=== PATIENT | male | born 1960 ===

== ENCOUNTER → 2021-06-08 10:51 | Outpatient (BNVA) | payer BC, SELFPAY | PROVIDERS: Visit Provider Urology | DX: C67.9 Malignant neoplasm of bladder, unspecified (principal); N40.1 Benign prostatic hyperplasia with lower urinary tract symptoms; N13.8 Other obstructive and reflux uropathy | CPT/HCPCS: 52000 ==

== ENCOUNTER 2022-06-25 11:48 | Outpatient (REF) | payer BC, SELFPAY ==
[2022-06-25 16:53] LABS: Urine Cytology See Pathology rpt
== END 2022-06-25 11:49 | disposition home or self-care (01) ==
LOC: HO.LAB 11:48
PROVIDERS: Visit Provider Urology
DX: C67.9 Malignant neoplasm of bladder, unspecified (principal); N40.1 Benign prostatic hyperplasia with lower urinary tract symptoms; N13.8 Other obstructive and reflux uropathy
CPT/HCPCS: 52000; 88112

== ENCOUNTER 2023-06-24 11:07 | Outpatient (AMB) | payer BC, SELFPAY ==
--- NOTE | 2023-06-24 11:10 | A.OFFVIS_ITS ---
Intake Intake Visit Reasons: 1 year follow up cysto Intake Note: Patient is present for Cystoscopy Urology Med: None Antibiotic Allergy:None Blood Thinner: None Pharmacy: [facility] Disposable Cystoscope used during Procedure LOT#: [id number] EXP: 03/07/2025 Allergies No Known Allergies Allergy (Verified 06/24/23 11:12) HPI HPI Comments History of Present Illness Details Asif Mccullough is a very pleasant male. They are a patient of Dr Agudelo. They are seen in the office today for the following urologic conditions. - Bladder cancer - lower urinary tract symptoms Cystoscopy no evidence of disease Does have some mild BPH recurrence Major issue in the past year has been COVID diagnosis with significant lung impairment Require supplemental oxygen in the evening Will do saturate when attempts any major activity during the day This has been some improvement Bladder Cancer:? Initial diagnosis 2013 with recurrent low-grade responsive to BCG (did drop platelets) ? Here for Bladder Cancer visit ?Had TURP in 03/17 - high residual - background diabetes ? Bladder cancer was initially diagnosed?2013.? Bladder intervention(s) performed?August 2014 TURBT, with Mitomycin C, Ta noninvasive papillary carcinoma, Low Grade, ?March 2015 , TURBT, with Mitomycin C, T1 invades subepthium, Low Grade ?November 2015, TURBT, with Mitomycin C, T1 invades subepthium, Low Grade, .? Recurrence Risk per EORTC ?Intermediate Risk.? Prior Cystoscopy?March 2016 Negative, October 2016 negative Bx with cystitis, ?February 2017 Negative, Jun 2017 , Negative ?11/20 , Negative, 05/20 NAD ?11/21 NAD ?06/22 NAD.? Prior Cytology?Inflammatory cells ?02/17 NAD, 06/19 NAD ?11/20 NAD, 05/20 NAD.? Prior Imaging?2014 CT scan with contrast, No evidence for metastases.? Previous intravesical therapy?March 2015, BCG Induction November 2015, BCG/Interferon Induction. BCG interferon was associated with consumptive jaundice, ?[facility] x3 January 2016, ?[facility] x3 July 2016.? Planned treatment?surveillance protocol.? See in 12 months for cystoscopy. [facility] Medical History BPH (benign prostatic hyperplasia) Hemolytic anemia HTN (hypertension) Incomplete emptying of bladder Urinary bladder cancer Surgical History History of bladder surgery Review of Systems Const Denies chills and Denies fever(s) Card Reports no additional complaints and Denies syncope Resp Denies cough GI Denies abdominal pain and Denies heartburn Reports as per HPI and Denies change in libido Neuro Denies syncope Psych Denies change in libido Endo Denies change in libido Physical Exam Const General: cooperative, healthy appearing, comfortable and no acute distress Orientation/consciousness: patient oriented x3 HEENT Face and sinus: Yes normal facial exam Mouth: moist mucous membranes Neck Neck: Yes normal visual inspection, Yes full ROM and Yes trachea midline Chest Chest palpation & inspection: normal inspection of the chest Resp Effort & Inspection: normal respiratory effort, able to speak in complete sentences and no respiratory distress GI Inspection: Yes normal to inspection Back/Spine/Pelvis Cervical Spine: normal cervical lordosis Thoracic/Lumbar Spine: thoracic and lumbar spine normal to inspection Skin General skin exam: no rashes or lesions noted Neuro General: patient oriented x3, gait normal, tone normal and moves all extremities Extrem General: Yes normal to inspection and Yes capillary refill normal Office Procedures Cystoscopy Consent Discussed risk and benefit or proposed procedure with the patient. Information consent for procedure given to the patient. Discussed technical aspects, risks, benefits and alternatives in full. Addressed all of the patient's questions and concerns regarding the procedure. The patient demonstrated knowledge and understanding. They wish to proceed with this procedure. Preparation The patient was prepped in the usual manner. A paper hanger was present and in the room. Genitalia was prepped with betadine solution in a sterile manner. Lidocaine Jelly 2% was placed into the urethra and 16Fr flexible Olympus cystoscope was inserted into the meatus after adequate lubrication. Procedure Meatus normal Urethra anterior posterior urethra normal Prostatic Urethra unremarkable Bladder examination with retroflexion of cystoscope Bladder Orifices normal shape and position Bladder Capacity medium Trabeculations grade 3 Cellule Formation - Diverticulum Formation - Mucosal Erythema - Bladder Tumor - 98305-[id number] DISPOSABLE SCOPE URO-G FLEXIBLE SCOPE Procedure code (CPT) selection complete Office Meds lidocaine HCl Performing Provider: Ryan Palma MD Documented (not given) by: Ryan Palma MD on 06/24/23 12:10 Dose Route Admin Location Lot Number Expiration Date NDC Level Vial Marker 10 mL intra-urethral nitrofurantoin monohyd/m-cryst 100 mg Performing Provider: Ryan Palma MD Documented (not given) by: Ryan Palma MD on 06/24/23 12:10 Dose Route Admin Location Lot Number Expiration Date NDC Level Vial Marker 100 mg PO naproxen Performing Provider: Ryan Palma MD Documented (not given) by: Ryan Palma MD on 06/24/23 12:10 Dose Route Admin Location Lot Number Expiration Date NDC Level Vial Marker 500 mg PO Assessment & Plan Assessment & Plan Orders: Orders Urine Cytology Today C67.9 - Malignant neoplasm of bladder, unspecified AMB Cystoscopy Today C67.9 - Malignant neoplasm of bladder, unspecified AMB Urinalysis Automated Today Z13.9 - Encounter for screening, unspecified Medications: New 2 naproxen 500 mg PO ONCE 1 tab 0RF C67.9 - Malignant neoplasm of bladder, unspecified nitrofurantoin monohyd/m-cryst 100 mg 100 mg PO ONCE 1 cap 0RF C67.9 - Malignant neoplasm of bladder, unspecified lidocaine HCl 2% 10 mL intra-urethral ONCE 10 mL 0RF C67.9 - Malignant neoplasm of bladder, unspecified Coding Level of Care Code Est Pt Level 4 (40657) Diagnoses CPT Codes Cystoscopy - CPT: 97594-Mjuqhrvwid ([id number]) Cystoscopy - CPT: DISPOSABLE SCOPE URO-G FLEXIBLE SCOPE ([id number])
== END 2023-06-24 12:09 | disposition home or self-care (01) ==
PROVIDERS: Visit Provider Urology
DX: C67.9 Malignant neoplasm of bladder, unspecified (principal)
CPT/HCPCS: 52000; 99214

== ENCOUNTER 2023-06-24 11:07 | Outpatient (REF) | payer BC, SELFPAY ==
[2023-06-24 17:00] LABS: Urine Cytology See Pathology rpt
== END 2023-06-24 11:08 | disposition home or self-care (01) ==
LOC: HO.LAB 11:07
PROVIDERS: Visit Provider Urology
DX: C67.9 Malignant neoplasm of bladder, unspecified (principal)
CPT/HCPCS: 52000; 88112; C1747

== ENCOUNTER 2024-06-24 10:57 | Outpatient (AMB) | payer BC, SELFPAY ==
--- NOTE | 2024-06-24 11:24 | MHC.OFFVIS ---
Intake Visit Reasons: 1Y Cystoscopy(Bladder Ca) Intake Note: Patient is Present for Cystoscopy Urology Med: None Antibiotic Allergy: None Blood Thinner:None URO- G Disposable Cystoscope lot:[id number] exp:12/18/2026 Slitter Creaser Slotter Operator Required: No Allergies No Known Allergies Allergy (Verified 06/24/24 11:27) HPI Comments Details: Asif Mccullough is a very pleasant male. They are a patient of Dr Agudelo. They are seen in the office today for the following urologic conditions. - Bladder cancer - lower urinary tract symptoms Cystoscopy no evidence of disease Does have some mild BPH recurrence Major issue in the past year has been COVID diagnosis with significant lung impairment Require supplemental oxygen in the evening Will do saturate when attempts any major activity during the day This has been some improvement Bladder Cancer:? Initial diagnosis 2013 with recurrent low-grade responsive to BCG (did drop platelets) ? Here for Bladder Cancer visit ?Had TURP in 03/17 - high residual - background diabetes ? Bladder cancer was initially diagnosed?2013.? Bladder intervention(s) performed?August 2014 TURBT, with Mitomycin C, Ta noninvasive papillary carcinoma, Low Grade, ?March 2015 , TURBT, with Mitomycin C, T1 invades subepthium, Low Grade ?November 2015, TURBT, with Mitomycin C, T1 invades subepthium, Low Grade, .? Recurrence Risk per EORTC ?Intermediate Risk.? Prior Cystoscopy?March 2016 Negative, October 2016 negative Bx with cystitis, ?February 2017 Negative, Jun 2017 , Negative ?11/20 , Negative, 05/20 NAD ?11/21 NAD ?06/22 NAD.? Prior Cytology?Inflammatory cells ?02/17 NAD, 06/19 NAD ?11/20 NAD, 05/20 NAD.? Prior Imaging?2014 CT scan with contrast, No evidence for metastases.? Previous intravesical therapy?March 2015, BCG Induction November 2015, BCG/Interferon Induction. BCG interferon was associated with consumptive jaundice, ?[facility] x3 January 2016, ?[facility] x[facility] July 2016.? Planned treatment?surveillance protocol.? See in 12 months for cystoscopy. [facility] Medical History Hemolytic anemia HTN (hypertension) BPH (benign prostatic hyperplasia) Urinary bladder cancer Incomplete emptying of bladder Surgical History History of bladder surgery Review of Systems Const Denies chills and Denies fever(s) Card Reports no additional complaints and Denies syncope Resp Denies cough GI Denies abdominal pain and Denies heartburn Reports as per HPI and Denies change in libido Neuro Denies syncope Psych Denies change in libido Endo Denies change in libido Physical Exam Const General: cooperative, healthy appearing, comfortable and no acute distress Orientation/consciousness: patient oriented x3 HEENT Face and sinus: Yes normal facial exam Mouth: moist mucous membranes Neck Neck: Yes normal visual inspection, Yes full ROM and Yes trachea midline Chest Chest palpation & inspection: normal inspection of the chest Resp Effort & Inspection: normal respiratory effort, able to speak in complete sentences and no respiratory distress GI Inspection: Yes normal to inspection Back/Spine/Pelvis Cervical Spine: normal cervical lordosis Thoracic/Lumbar Spine: thoracic and lumbar spine normal to inspection Skin General skin exam: no rashes or lesions noted Neuro General: patient oriented x3, gait normal, tone normal and moves all extremities Extrem General: Yes normal to inspection and Yes capillary refill normal Office Procedures Cystoscopy Consent Discussed risk and benefit or proposed procedure with the patient. Information consent for procedure given to the patient. Discussed technical aspects, risks, benefits and alternatives in full. Addressed all of the patient's questions and concerns regarding the procedure. The patient demonstrated knowledge and understanding. They wish to proceed with this procedure. Preparation The patient was prepped in the usual manner. A railroad track mechanic was present and in the room. Genitalia was prepped with betadine solution in a sterile manner. Lidocaine Jelly 2% was placed into the urethra and 16Fr flexible Olympus cystoscope was inserted into the meatus after adequate lubrication. Procedure Cystoscopy performed using a disposable Urovue digital 16 German cystoscope. Meatus circumcised Urethra anterior and posterior urethra normal Prostatic Urethra open bladder neck from prior TURP per surgery Bladder examination with retroflexion of cystoscope Bladder Orifices normal shape and position Bladder Capacity large Trabeculations grade 2 Cellule Formation yes Diverticulum Formation - Mucosal Erythema - Bladder Tumor - [id number] DISPOSABLE SCOPE URO-N NEEDLE SCOPE Procedure code (CPT) selection complete Office Meds lidocaine HCl 2 % mucosal jelly in applicator Performing Provider: Ryan Palma MD Performing Location: [facility] Administered by: Devan Gamboa LPN on 06/24/24 11:42 Dose Route Admin Location Dispensed Lot Number Expiration Date NDC Television Equipment Operator 10 mL intra-urethral 20 mL nitrofurantoin monohydrate/macrocrystals 100 mg capsule Performing Provider: Ryan Palma MD Performing Location: [facility] Administered by: Devan Gamboa LPN on 06/24/24 11:42 Dose Route Admin Location Dispensed Lot Number Expiration Date NDC Television Equipment Operator 100 mg PO 1 cap naproxen 500 mg tablet Performing Provider: Ryan Palma MD Performing Location: [facility] Administered by: Devan Gamboa LPN on 06/24/24 11:42 Dose Route Admin Location Dispensed Lot Number Expiration Date NDC Television Equipment Operator 500 mg PO 1 tab Results AMB Urinalysis, Automated UA Leukoctes 0 Leonarda/uL Last Edit by RANDY Nails on 06/24/24 11:39 UA Nitrite Negative Last Edit by RANDY Nails on 06/24/24 11:39 UA Urobilinogen 0.2 mg/dL Last Edit by RANDY Nails on 06/24/24 11:39 UA Protein 15 mg/dL Last Edit by RANDY Nails on 06/24/24 11:39 UA pH 6.0 Last Edit by RANDY Nails on 06/24/24 11:39 UA Blood Min/uL Last Edit by RANDY Nails on 06/24/24 11:39 UA Specific [place] 1.015 Last Edit by RANDY Nails on 06/24/24 11:39 UA Ketone Negative Last Edit by RANDY Nails on 06/24/24 11:39 UA Bilirubin 0 mg/dL Last Edit by RANDY Nails on 06/24/24 11:39 UA Glucose 1000 mg/dL Last Edit by RANDY Nails on 06/24/24 11:39 Results Reviewed Results Reviewed: Laboratory Last Values Urine pH (Auto) 6.0 06/24/24 11:28 Specific [place] (Auto) 1.015 06/24/24 11:28 Urine Protein (Auto) 15 mg/dL 06/24/24 11:28 Glucose (UA)(Auto) 1000 mg/dL 06/24/24 11:28 Urine Ketones (Auto) Negative 06/24/24 11:28 Urine Nitrite (Auto) Negative 06/24/24 11:28 Urine Bilirubin (Auto) 0 mg/dL 06/24/24 11:28 Urine Urobilinogen (Auto) 0.2 mg/dL 06/24/24 11:28 Leukocyte Esterase (Auto) 0 Leonarda/uL 06/24/24 11:28 Assessment & Plan Assessment & Plan (1) Bladder cancer: Comment: High-grade superficial responded to BCG sequence Code(s): C67.9 - Malignant neoplasm of bladder, unspecified Category: Medical (2) BPH w urinary obs/LUTS: Comment: TURP 2014 Code(s): N40.1 - Benign prostatic hyperplasia with lower urinary tract symptoms; N13.8 - Other obstructive and reflux uropathy Category: Medical Plan Twelve month follow-up check cystoscopy Orders: Orders AMB Urinalysis Automated 06/24/24 Z13.9 - Encounter for screening, unspecified AMB Cystoscopy 06/24/24 C67.9 - Malignant neoplasm of bladder, unspecified FISH Bladder Cancer 06/24/24 C67.9 - Malignant neoplasm of bladder, unspecified Patient Instructions: Imaging studies, laboratory and physical exam results were discussed and reviewed in detail. No major barriers to patient understanding were identified. An opportunity to ask questions regarding the treatment plan was provided. All questions were answered. The patient expressed understanding and agreement with the above treatment plan. The patient is aware they should contact our office by phone for worsening of their current condition or the appearance of new urologic symptoms. Compliance is encouraged with any medications and followup testing that is ordered. It is a privilege to participate in the urologic care of your patient. If you have any questions or concerns regarding treatment for the above conditions, or other urologic issues, please do not hesitate to contact me. The office telephone contact is [phone]. This note is constructed using voice recognition software. While every effort has been made to ensure accuracy therapy site coordinator errors may have been included. Yours sincerely, Dr Ryan Palma MD, [facility] - Urology Providers of Expert, Compassionate Care for the Genitourinary System Coding Level of Care Code Est Pt Level 3 (60521) Diagnoses Bladder cancer C67.9 BPH w urinary obs/LUTS N40.1; N13.8 CPT Codes Cystoscopy - CPT: 03749-Fojshyteqo ([id number])
== END 2024-06-24 12:07 | disposition home or self-care (01) ==
PROVIDERS: Visit Provider Urology
DX: C67.9 Malignant neoplasm of bladder, unspecified (principal); N40.1 Benign prostatic hyperplasia with lower urinary tract symptoms; N13.8 Other obstructive and reflux uropathy
CPT/HCPCS: 52000; 99213

== ENCOUNTER 2024-06-24 10:57 | Outpatient (REF) | payer BC, SELFPAY | END 2024-06-24 10:58 | disposition home or self-care (01) | LOC: HO.LAB 10:57 | PROVIDERS: Visit Provider Urology | DX: C67.9 Malignant neoplasm of bladder, unspecified (principal) | CPT/HCPCS: 52000; 81003; 88121 ==

== ENCOUNTER 2025-07-08 13:59 | Outpatient (REF) | payer BC, SELFPAY | END 2025-07-08 14:00 | disposition home or self-care (01) | LOC: HO.LNP 13:59 | PROVIDERS: Visit Provider Urology | DX: C67.9 Malignant neoplasm of bladder, unspecified (principal); N40.1 Benign prostatic hyperplasia with lower urinary tract symptoms; N13.8 Other obstructive and reflux uropathy; N39.0 Urinary tract infection, site not specified; Z13.89 Encounter for screening for other disorder | CPT/HCPCS: 52000; 81003; 88112 ==

== ENCOUNTER 2025-07-08 13:59 | Outpatient (AMB) | payer BC, SELFPAY ==
--- NOTE | 2025-07-08 13:57 | MHC.OFFVIS ---
Intake Visit Reasons: cysto Intake Note: Patient is Present for Cystoscopy Urology Med: None Antibiotic Allergy: None Blood Thinner:None URO- G Disposable Cystoscope LOT# [id number] EXP: 01/10/2027 Boiler Tube Reamer Required: No Accompanied by: Self / Same As Patient Allergies No Known Allergies Allergy (Verified 07/08/25 13:58) HPI Comments Details: Asif Mccullough is a very pleasant male. He is a patient of Dr Agudelo. He is seen in the office today for the following urologic conditions. - Bladder cancer - lower urinary tract symptoms Ten year follow-up Cystoscopy - scarring within bladder no evidence of recurrence. Open prostate Bladder FISH - 06/26 Negative Bladder Cancer:? Initial diagnosis 2013 with recurrent low-grade responsive to BCG (did drop platelets) ? Here for Bladder Cancer visit ?Had TURP in 03/17 - high residual - background diabetes ? Bladder cancer was initially diagnosed?2013.? Bladder intervention(s) performed?August 2014 TURBT, with Mitomycin C, Ta noninvasive papillary carcinoma, Low Grade, ?March 2015 , TURBT, with Mitomycin C, T1 invades subepthium, Low Grade ?November 2015, TURBT, with Mitomycin C, T1 invades subepthium, Low Grade, .? Recurrence Risk per EORTC ?Intermediate Risk.? Prior Cystoscopy?March 2016 Negative, October 2016 negative Bx with cystitis, ?February 2017 Negative, Jun 2017 , Negative ?11/20 , Negative, 05/20 NAD ?11/21 NAD ?06/22 NAD.? Prior Cytology?Inflammatory cells ?02/17 NAD, 06/19 NAD ?11/20 NAD, 05/20 NAD.? Prior Imaging?2014 CT scan with contrast, No evidence for metastases.? Previous intravesical therapy?March 2015, BCG Induction November 2015, BCG/Interferon Induction. BCG interferon was associated with consumptive jaundice, ?[facility] x3 January 2016, ?[facility] x3 July 2016.? Planned treatment?surveillance protocol.? PFSH Medical History Hemolytic anemia HTN (hypertension) BPH (benign prostatic hyperplasia) Urinary bladder cancer Incomplete emptying of bladder Surgical History History of bladder surgery Review of Systems Const Denies chills and Denies fever(s) Card Reports no additional complaints and Denies syncope Resp Denies cough GI Denies abdominal pain and Denies heartburn Reports as per HPI and Denies change in libido Neuro Denies syncope Psych Denies change in libido Endo Denies change in libido Physical Exam Const General: cooperative, healthy appearing, comfortable and no acute distress Orientation/consciousness: patient oriented x3 HEENT Face and sinus: Yes normal facial exam Mouth: moist mucous membranes Neck Neck: Yes normal visual inspection, Yes full ROM and Yes trachea midline Chest Chest palpation & inspection: normal inspection of the chest Resp Effort & Inspection: normal respiratory effort, able to speak in complete sentences and no respiratory distress GI Inspection: Yes normal to inspection Back/Spine/Pelvis Cervical Spine: normal cervical lordosis Thoracic/Lumbar Spine: thoracic and lumbar spine normal to inspection Skin General skin exam: no rashes or lesions noted Neuro General: patient oriented x3, gait normal, tone normal and moves all extremities Extrem General: Yes normal to inspection and Yes capillary refill normal Office Procedures Cystoscopy Consent Discussed risk and benefit or proposed procedure with the patient. Information consent for procedure given to the patient. Discussed technical aspects, risks, benefits and alternatives in full. Addressed all of the patient's questions and concerns regarding the procedure. The patient demonstrated knowledge and understanding. They wish to proceed with this procedure. Preparation The patient was prepped in the usual manner. A surgical garment assembler was present and in the room. Genitalia was prepped with betadine solution in a sterile manner. Lidocaine Jelly 2% was placed into the urethra and 16Fr flexible Olympus cystoscope was inserted into the meatus after adequate lubrication. Procedure Cystoscopy performed using a disposable Urovue digital 16 Green[place] cystoscope. Meatus circumcised Urethra anterior and posterior urethra normal Prostatic Urethra TURP defect wide open Bladder examination with retroflexion of cystoscope Bladder Orifices normal shape and position Bladder Capacity large Trabeculations grade 1 Cellule Formation None Diverticulum Formation None Mucosal Erythema None Bladder Tumor None - posterior scarring [id number] DISPOSABLE SCOPE URO-G FLEXIBLE SCOPE Procedure code (CPT) selection complete Office Meds lidocaine HCl 2 % mucosal jelly in applicator Performing Provider: Ryan Palma MD Performing Location: [facility] Administered by: Belkis Eduardo RN on 07/08/25 14:17 Dose Route Admin Location Dispensed Lot Number Expiration Date NDC Police Patrol Officer 10 mL intra-urethral 10 mL nitrofurantoin monohydrate/macrocrystals 100 mg capsule Performing Provider: Ryan Palma MD Performing Location: [facility] Administered by: Belkis Eduardo RN on 07/08/25 14:17 Dose Route Admin Location Dispensed Lot Number Expiration Date NDC Police Patrol Officer 100 mg PO 1 cap Results AMB Urinalysis, Automated UA Leukoctes 0 Leonarda/uL Last Edit by EDNA Gonzalez on 07/08/25 15:50 UA Nitrite Negative Last Edit by EDNA Gonzalez on 07/08/25 15:50 UA Urobilinogen 0.2 mg/dL Last Edit by EDNA Gonzalez on 07/08/25 15:50 UA Protein 15 mg/dL Last Edit by EDNA Gonzalez on 07/08/25 15:50 UA pH 6.0 Last Edit by EDNA Gonzalez on 07/08/25 15:50 UA Blood 0 Min/uL Last Edit by EDNA Gonzalez on 07/08/25 15:50 UA Specific [place] 1.025 Last Edit by EDNA Gonzalez on 07/08/25 15:50 UA Ketone Negative Last Edit by EDNA Gonzalez on 07/08/25 15:50 UA Bilirubin 1 mg/dL Last Edit by EDNA Gonzalez on 07/08/25 15:50 UA Glucose 500 mg/dL Last Edit by EDNA Gonzalez on 07/08/25 15:50 Results Reviewed Results Reviewed: Laboratory Last Values Urine pH (Auto) 6.0 07/08/25 15:42 Specific [place] (Auto) 1.025 07/08/25 15:42 Urine Protein (Auto) 15 mg/dL 07/08/25 15:42 Glucose (UA)(Auto) 500 mg/dL 07/08/25 15:42 Urine Ketones (Auto) Negative 07/08/25 15:42 Urine Blood (Auto) 0 Min/uL 07/08/25 15:42 Urine Nitrite (Auto) Negative 07/08/25 15:42 Urine Bilirubin (Auto) 1 mg/dL 07/08/25 15:42 Urine Urobilinogen (Auto) 0.2 mg/dL 07/08/25 15:42 Leukocyte Esterase (Auto) 0 Leonarda/uL 07/08/25 15:42 Assessment & Plan Assessment & Plan (1) Bladder cancer: Comment: High-grade superficial responded to BCG sequence Code(s): C67.9 - Malignant neoplasm of bladder, unspecified Category: Medical (2) BPH w urinary obs/LUTS: Comment: TURP 2014 Code(s): N40.1 - Benign prostatic hyperplasia with lower urinary tract symptoms; N13.8 - Other obstructive and reflux uropathy Category: Medical Plan P.r.n. follow-up No evidence of bladder cancer 10 years of surveillance Orders: Orders AMB Cystoscopy 07/08/25 C67.9 - Malignant neoplasm of bladder, unspecified Urine Cytology 07/08/25 N39.0 - Urinary tract infection, site not specified AMB Urinalysis Automated 07/08/25 Z13.9 - Encounter for screening, unspecified Patient Instructions: This note is constructed using voice recognition software. While every effort has been made to ensure accuracy research project coordinator errors may have been included. Imaging studies, laboratory and physical exam results were discussed and reviewed in detail. No major barriers to patient understanding were identified. An opportunity to ask questions regarding the treatment plan was provided. All questions were answered. The patient expressed understanding and agreement with the above treatment plan. The patient is aware they should contact our office by phone for worsening of their current condition or the appearance of new urologic symptoms. Compliance is encouraged with any medications and followup testing that is ordered. It is a privilege to participate in the urologic care of your patient. If you have any questions or concerns regarding treatment for the above conditions, or other urologic issues, please do not hesitate to contact me. The office telephone contact is [phone]. Sincerely, Dr Ryan Palma MD, [facility] - Urology Compassionate Specialist Care for the Genitourinary System Coding Level of Care Code Est Pt Level 4 (61643) Diagnoses Bladder cancer C67.9 BPH w urinary obs/LUTS N40.1; N13.8 CPT Codes Cystoscopy - CPT: 50254-Vffpzhyyjf ([id number])
--- OUTSIDE RECORDS SUMMARY | 2025-07-08 14:29 | XMS_ITS | Encounter Summary ---
Author Organization [facility] Address [address] [place] [address] Care Team Providers Care Silica Spray Mixer Name Role Phone Manoj Agudelo I Primary Care Provider [phone] Prince Owens MD Unavailable [phone] Encounter Details Date Type Department Care Team (Late Contact Info) Description 08/02/2024 Orders Only [facility] Hematology/Oncology [address] [place] [phone] La Nena Weclh, RN [address] [place] [address] Social History Tobacco Use Types Packs/Day Years Used Date Smoking Tobacco: Never Smokeless Tobacco: Never Intimate Partner Violence Answer Date R ecorded Fear of Current or Ex-Partner Not on file Emotionally Abused Not on file 06/19/2023 Physically Abused Not on file 06/19/2023 Sexually Abused Not on file 06/19/2023 Feel Safe at Home Not on file 06/19/2023 Sex and Gender Information Value Date Recorded Sex Assigned at Not on file Legal Sex Male 10:51 PM EDT Gender Identity Not on file Sexual Orientation Not on file documented as of this encounter Plan of Treatment Upcoming Encounters Date Type Department Care Team (Late st Contact Info) Description 07/19/2025 9:00 AM EDT Office Visit [facility] Hematology/Oncology [address] [place] [address] [phone] Prince Owens MD [address] [place] [phone] R/S from 8-28 due to mother passing away 11/18/2025 2:00 PM EST Office Visit [facility] Dermatology [address] [place] [phone] Iván Guajardo MD [address] [place] [address] Return in about 1 year (around 11/18/2025). documented as of this encounter Procedures * Due to [place] [employer] law, this organization might not be sharing negative HIV tests. Procedure Name Priority Date/Time Associated Diagnosis Comments CBC INCLUDES DIFFERENTIAL AND PLATELET COUNT Routine 08/02/2024 2:27 PM EDT Acquired hemolytic anemia documented in this encounter Results * Due to [facility] law, this organization might not be sharing negative HIV tests. * (ABNORMAL) CBC INCLUDES DIFFERENTIAL AND PLATELET COUNT (08/02/2024 2:27 PM EDT) WBC 5.8 3.8 - 10.8 Thousand/ uL [facility] RBC 2.83(L) 4.20 - 5.80 Million/u L [facility] Hemoglobin 9.5(L) 13.2 - 17.1 g/dL [facility] Hematocrit 29.2(L) 38.5 - 50.0 % [facility] MCV 103.2(H) 80.0 - 100.0 fL [facility] MCH 33.6(H) 27.0 - 33.0 pg [facility] MCHC 32.5 32.0 - 36.0 g/dL [facility] Comment: For adults, a slight decrease in the calculated MCHC value (in the range of 30 to 32 g/dL) is most likely not clinically significant; however, it should be interpreted with caution in correlation with other red cell parameters and the patient's clinical condition. RDW 12.8 11.0 - 15.0 % [facility] PLT 236 140 - 400 Thousand/ uL [facility] MPV 10.2 7.5 - 12.5 fL [facility] Neutrophils # 3271 1500 - 7800 cells/uL [facility] Lymphocytes # 1937 850 - 3900 cells/uL [facility] Monocytes # 429 200 - 950 cells/uL [facility] Eosinophils # 122 15 - 500 cells/uL [facility] Basophils # 41 0 - 200 cells/uL [facility] Neutrophils % 56.4 % [facility] Lymphocytes % 33.4 % [facility] Monocytes % 7.4 % [facility] Eosinophils % 2.1 % [facility] Basophils % 0.7 % [facility] 08/02/2024 2:27 PM EDT 08/03/2024 2:38 AM EDT Narrative Resulting Agency Comment [id number] us Prince Owens MD LAB SAME DAY RESULT Final Result [facility] [address] [place] [address] documented in this encounter Visit Diagnoses Diagnosis Acquired hemolytic anemia (HCC) Acquired hemolytic anemia, unspecified documented in this encounter Care Teams Silica Spray Mixer Relationship Specialty Start Date End Date Manoj Agudelo I [address] [address] [place] [phone] PCP - General Family Medicine 02/05/18 Prince Owens MD [address] [place] [address] Primary Hem Onc Provider Hematology/Oncology 04/18/25 documented as of this encounter
--- OUTSIDE RECORDS SUMMARY | 2025-07-08 14:29 | XMS_ITS | Encounter Summary ---
Author Organization [facility] Address [address] [place] [address] Care Team Providers Care Abalone Processor Name Role Phone Manoj Agudelo I Primary Care Provider [phone] Prince Owens MD Unavailable [phone] Encounter Details Date Type Department Care Team (Late Contact Info) Description 07/19/2024 Orders Only [facility] Hematology/Oncology [address] [place] [address] [phone] La Nena [place], RN [address] [place] [address] Social History Tobacco Use Types Packs/Day Years [...] EDT Office Visit [facility] Hematology/Oncology [address] [place] [address] [phone] Prince Owens MD [address] [place] [phone] R/S from 8- due to mother passing away 11/18/2025 2:00 PM EST Office Visit [facility] Dermatology [address] [place] [phone] Iván Guajardo MD [address] [place] [address] Return in about 1 year (around 11/18/2025). documented as of this encounter Procedures * Due to [facility] law, this organization might not be sharing negative HIV tests. Procedure Name Priority Date/Time Associated Diagnosis Comments CBC INCLUDES DIFFERENTIAL AND PLATELET COUNT Routine 07/19/2024 3:46 PM EDT Acquired hemolytic anemia documented in this encounter Results * Due to [facility] law, this organization might not be sharing negative HIV tests. * (ABNORMAL) CBC INCLUDES DIFFERENTIAL AND PLATELET COUNT (07/19/2024 3:46 PM EDT) WBC 7.4 3.8 - 10.8 Thousand/u L [facility] RBC 3.05(L) 4.20 - 5.80 Million/uL [facility] Hemoglobin 10.6(L) 13.2 - 17.1 g/dL [facility] Hematocrit 32.6(L) 38.5 - 50.0 % [facility] MCV 106.9(H) 80.0 - 100.0 fL [facility] MCH 34.8(H) 27.0 - 33.0 pg [facility] MCHC 32.5 32.0 - 36.0 g/dL [facility] RDW 13.7 11.0 - 15.0 % [facility] PLT 194 140 - 400 Thousand/u L [facility] MPV 10.2 7.5 - 12.5 fL [facility] Neutrophils # 5358 1500 - 7800 cells/uL [facility] Lymphocytes # 1458 850 - 3900 cells/uL [facility] Monocytes # 459 200 - 950 cells/uL [facility] Eosinophils # 96 15 - 500 cells/uL [facility] Basophils # 30 0 - 200 cells/uL [facility] Neutrophils % 72.4 % [facility] Lymphocytes % 19.7 % [facility] Monocytes % 6.2 % [facility] Eosinophils % 1.3 % [facility] Basophils % 0.4 % [facility] 07/19/2024 3:46 PM EDT 07/20/2024 2:45 AM EDT Narrative Resulting Agency Comment [id number] us Prince Owens MD LAB SAME DAY RESULT Final Result [facility] [address] [place] [address] documented in this encounter Visit Diagnoses Diagnosis Acquired hemolytic anemia (HCC) Acquired hemolytic anemia, unspecified documented in this encounter Care Teams Abalone Processor Relationship Specialty Start Date End Date Manoj Agudelo I [address] [address] [place] [phone] PCP - General Family Medicine 02/05/18 Prince Owens MD [address] [place] [address] Primary Hem Onc Provider Hematology/Oncology 04/18/25 documented as of this encounter
--- OUTSIDE RECORDS SUMMARY | 2025-07-08 14:29 | XMS_ITS | Encounter Summary ---
Author Organization [facility] Address [address] [place] [address] Care Team Providers Care Building Construction Inspector Name Role Phone Manoj Agudelo I Primary Care Provider [phone] Prince Owens MD Unavailable [phone] Encounter Details Date Type Department Care Team ([facility] Contact Info) Description 09/27/2024 Orders Only [facility] Hematology/Oncology [address] [place] [phone] Prince Owens MD [address] [place] [phone] Social History Tobacco Use Types Packs/Day Years [...] Upcoming Encounters Date Type Department Care Team ([facility] Contact Info) Description 07/19/2025 9:00 AM EDT Office Visit [facility] Hematology/Oncology [address] [place] [phone] Prince Owens MD [address] [place] [address] R/S from 8-28 due to mother passing away 11/18/2025 2:00 PM EST Office Visit [facility] Dermatology 5 [place] [phone] Iván Guajardo MD [address] [place] [address] Return in about 1 year (around 11/18/2025). documented as of this encounter Procedures * Due to [place] [employer] law, this organization might not be sharing negative HIV tests. Procedure Name Priority Date/Time Associated Diagnosis Comments CBC INCLUDES DIFFERENTIAL AND PLATELET COUNT Routine 09/27/2024 1:40 PM EST Acquired hemolytic anemia LACTATE DEHYDROGENASE (LDH), SERUM Routine 09/27/2024 1:40 PM EST Acquired hemolytic anemia COMPREHENSIVE METABOLIC PANEL WITH GFR Routine 09/27/2024 1:40 PM EST Acquired hemolytic anemia documented in this encounter Results * Due to [place] [employer] law, this organization might not be sharing negative HIV tests. * LACTATE DEHYDROGENASE (LDH), SERUM (09/27/2024 1:40 PM EST) Lactate dehydrogenase 214 120 - 250 U/L [facility] 09/27/2024 1:40 PM EST 09/28/2024 1:49 AM EST Narrative Resulting Agency Comment [id number] us Prince Owens MD LABORATORY Final Resu lt [facility] [address] [place] [address] * (ABNORMAL) COMPREHENSIVE METABOLIC PANEL WITH GFR (09/27/2024 1:40 PM EST) Glucose 118(H) 65 - 99 mg/dL [facility] Comment: Fasting reference interval For someone without known diabetes, a glucose value between 100 and 125 mg/dL is consistent with prediabetes and should be confirmed with a follow-up test. Urea Nitrogen Blood (BUN) 22 7 - 25 mg/dL [facility] Creatinine 0.99 0.70 - 1.35 mg/dL [facility] EGFR 85 > OR = 60 mL/min/1. 73m2 [facility] BUN/Creatinine Ratio SEE NOTE: 6 - 22 (calc) [facility] Comment: Not Reported: BUN and Creatinine are within reference range. Sodium 138 135 - 146 mmol/L [facility] Potassium 4.5 3.5 - 5.3 mmol/L [facility] Chloride 103 98 - 110 mmol/L [facility] Carbon dioxide 25 20 - 32 mmol/L [facility] Calcium 9.8 8.6 - 10.3 mg/dL [facility] Protein Total (Serum) 7.5 6.1 - 8.1 g/dL [facility] Albumin 5.3(H) 3.6 - 5.1 g/dL [facility] Globulin 2.2 1.9 - 3.7 g/dL (calc) [facility] Albumin/Globuli n 2.4 1.0 - 2.5 (calc) [facility] Bilirubin Total 3.7(H) 0.2 - 1.2 mg/dL [facility] Alkaline phosphatase 61 35 - 144 U/L [facility] AST (SGOT) 18 10 - 35 U/L [facility] ALT (SGPT) 19 9 - 46 U/L [facility] 09/27/2024 1:40 PM EST 09/28/2024 1:49 AM EST Narrative [facility] - 09/28/2024 8:13 AM EST Please note that this estimated GFR does not include an adjustment for the patient's height or weight, and can therefore, be viewed as reliable only for patients with heights between 60 and 72 . More precise quantification using a 24-hour urine sample or height-based algorithm is recommended for patients outside of this range of height and for those individuals with more precise needs for GFR calculation. Resulting Agency Comment [id number] us Prince Owens MD LABORATORY Final Resu lt [facility] [address] [place] [address] * (ABNORMAL) CBC INCLUDES DIFFERENTIAL AND PLATELET COUNT (09/27/2024 1:40 PM EST) WBC 8.2 3.8 - 10.8 Thousand/ uL [facility] RBC 3.24(L) 4.20 - 5.80 Million/u L [facility] Hemoglobin 10.8(L) 13.2 - 17.1 g/dL [facility] Hematocrit 33.3(L) 38.5 - 50.0 % [facility] MCV 102.8(H) 80.0 - 100.0 fL [facility] MCH 33.3(H) 27.0 - 33.0 pg [facility] MCHC 32.4 32.0 - 36.0 g/dL [facility] Comment: For adults, a slight decrease in the calculated MCHC value (in the range of 30 to 32 g/dL) is most likely not clinically significant; however, it should be interpreted with caution in correlation with other red cell parameters and the patient's clinical condition. RDW 13.0 11.0 - 15.0 % [facility] PLT 281 140 - 400 Thousand/ uL [facility] MPV 10.3 7.5 - 12.5 fL [facility] Neutrophils # 6035 1500 - 7800 cells/uL [facility] Lymphocytes # 1558 850 - 3900 cells/uL [facility] Monocytes # 410 200 - 950 cells/uL [facility] Eosinophils # 139 15 - 500 cells/uL [facility] Basophils # 57 0 - 200 cells/uL [facility] Neutrophils % 73.6 % [facility] Lymphocytes % 19.0 % [facility] Monocytes % 5.0 % [facility] Eosinophils % 1.7 % [facility] Basophils % 0.7 % [facility] 09/27/2024 1:40 PM EST 09/28/2024 1:49 AM EST Narrative Resulting Agency Comment [id number] us Prince Owens MD LAB SAME DAY RESULT Final Result [facility] [address] [place] [address] documented in this encounter Visit Diagnoses Diagnosis Acquired hemolytic anemia (HCC) Acquired hemolytic anemia, unspecified documented in this encounter Care Teams Building Construction Inspector Relationship Specialty Start Date End Date Manoj Agudelo I [address] [address] [place] [phone] PCP - General Family Medicine 02/05/18 Prince Owens MD [address] [place] [address] Primary Hem Onc Provider Hematology/Oncology 04/18/25 documented as of this encounter
--- OUTSIDE RECORDS SUMMARY | 2025-07-08 14:29 | XMS_ITS | Encounter Summary ---
Author Organization [facility] Address [address] [place] [address] Care Team Providers Care Recyclable Materials Collector Name Role Phone RachellesherryJohncorywalter Carrion Primary Care Provider [phone] Prince Owens MD Unavailable [phone] Encounter Details Date Type Department Care Team (Late st Contact Info) Description 11/09/2024 Orders Only [facility] Hematology/Oncology [address] [place] [phone] Prince Owens MD [address] [place] [address] Social History Tobacco Use Types Packs/Day Years [...] on file documented as of this encounter Miscellaneous Notes * Result Encounter Note - Prince Owens MD - 11/09/2024 10:36 AM EST Results normal/stable. I have notified the patient via hetrashart. documented in this encounter Plan of Treatment Upcoming Encounters Date Type Department Care Team (Late st Contact Info) Description 07/19/2025 9:00 AM EDT Office Visit [facility] Hematology/Oncology [address] [place] [phone] Prince Owens MD [address] [place] [address] R/S from 8- due to mother passing away 11/18/2025 2:00 PM EST Office Visit [facility] Dermatology [address] [place] [phone] Iván Guajardo MD [address] [place] [address] Return in about 1 year (around 11/18/2025). documented as of this encounter Procedures * Due to [place] [employer] law, this organization might not be sharing negative HIV tests. Procedure Name Priority Date/Time Associated Diagnosis Comments CBC INCLUDES DIFFERENTIAL AND PLATELET COUNT Routine 11/09/2024 10:36 AM EST Acquired hemolytic anemia LACTATE DEHYDROGENASE (LDH), SERUM Routine 11/09/2024 10:36 AM EST Acquired hemolytic anemia COMPREHENSIVE METABOLIC PANEL WITH GFR Routine 11/09/2024 10:36 AM EST Acquired hemolytic anemia documented in this encounter Results * Due to [place] [employer] law, this organization might not be sharing negative HIV tests. * (ABNORMAL) CBC INCLUDES DIFFERENTIAL AND PLATELET COUNT (11/09/2024 10:36 AM EST) WBC 7.1 3.8 - 10.8 Thousand/ uL [facility] RBC 3.45(L) 4.20 - 5.80 Million/u L [facility] Hemoglobin 11.7(L) 13.2 - 17.1 g/dL [facility] Hematocrit 35.6(L) 38.5 - 50.0 % [facility] MCV 103.2(H) 80.0 - 100.0 fL [facility] MCH 33.9(H) 27.0 - 33.0 pg [facility] MCHC 32.9 32.0 - 36.0 g/dL [facility] Comment: For adults, a slight decrease in the calculated MCHC value (in the range of 30 to 32 g/dL) is most likely not clinically significant; however, it should be interpreted with caution in correlation with other red cell parameters and the patient's clinical condition. RDW 12.9 11.0 - 15.0 % [facility] PLT 216 140 - 400 Thousand/ uL [facility] MPV 9.9 7.5 - 12.5 fL [facility] Neutrophils # 4132 1500 - 7800 cells/uL [facility] Lymphocytes # 2265 850 - 3900 cells/uL [facility] Monocytes # 476 200 - 950 cells/uL [facility] Eosinophils # 178 15 - 500 cells/uL [facility] Basophils # 50 0 - 200 cells/uL [facility] Neutrophils % 58.2 % [facility] Lymphocytes % 31.9 % [facility] Monocytes % 6.7 % [facility] Eosinophils % 2.5 % [facility] Basophils % 0.7 % [facility] 11/09/2024 10:3 6 AM EST 11/09/2024 3:59 PM EST Narrative Resulting Agency Comment [id number] us Prince Owens MD LAB SAME DAY RESULT Final Result Performing Organization Address City/State/[facility] Co de Phone Number [facility] [address] [place] [address] * (ABNORMAL) COMPREHENSIVE METABOLIC PANEL WITH GFR (11/09/2024 10:36 AM EST) Glucose 153(H) 65 - 99 mg/dL [facility] Comment: Fasting reference interval For someone without known diabetes, a glucose value >125 mg/dL indicates that they may have diabetes and this should be confirmed with a follow-up test. Urea Nitrogen Blood (BUN) 18 7 - 25 mg/dL [facility] Creatinine 0.90 0.70 - 1.35 mg/dL [facility] EGFR 95 > OR = 60 mL/min/1. 73m2 [facility] BUN/Creatinine Ratio SEE NOTE: 6 - 22 (calc) [facility] Comment: Not Reported: BUN and Creatinine are within reference range. Sodium 141 135 - 146 mmol/L [facility] Potassium 4.2 3.5 - 5.3 mmol/L [facility] Chloride 102 98 - 110 mmol/L [facility] Carbon dioxide 29 20 - 32 mmol/L [facility] Calcium 9.3 8.6 - 10.3 mg/dL [facility] Protein Total (Serum) 7.0 6.1 - 8.1 g/dL [facility] Albumin 5.0 3.6 - 5.1 g/dL [facility] Globulin 2.0 1.9 - 3.7 g/dL (calc) [facility] Albumin/Globuli n 2.5 1.0 - 2.5 (calc) [facility] Bilirubin Total 4.2(H) 0.2 - 1.2 mg/dL [facility] Alkaline phosphatase 53 35 - 144 U/L [facility] AST (SGOT) 15 10 - 35 U/L [facility] ALT (SGPT) 22 9 - 46 U/L [facility] 11/09/2024 10:3 6 AM EST 11/09/2024 3:59 PM EST Narrative [facility] - 11/09/2024 6:04 PM EST Please note that this estimated GFR [...] needs for GFR calculation. Resulting Agency Comment [id number] Prince Owens MD LABORATORY Final Resu lt Performing Organization Address City/[facility]/ZIP Co de Phone Number [facility] [address] [place] [address] * LACTATE DEHYDROGENASE (LDH), SERUM (11/09/2024 10:36 AM EST) Lactate dehydrogenase 177 120 - 250 U/L [facility] 11/09/2024 10:3 6 AM EST 11/09/2024 3:59 PM EST Narrative Resulting Agency Comment [id number] Prince Owens MD LABORATORY Final Resu lt [facility] [address] [place] [address] documented in this encounter Visit Diagnoses Diagnosis Acquired hemolytic anemia (HCC) Acquired hemolytic anemia, unspecified documented in this encounter Care Teams Recyclable Materials Collector Relationship Specialty Start Date End Date Manoj Agudelo I [address] [phone] PCP - General Family Medicine 02/05/18 Prince Owens MD [address] [place] [address] Primary Hem Onc Provider Hematology/Oncology 04/18/25 documented as of this encounter
--- OUTSIDE RECORDS SUMMARY | 2025-07-08 14:29 | XMS_ITS | Encounter Summary ---
Author Organization [facility] Address [address] [place] [address] Care Team Providers Care Aeronautics Teacher Name Role Phone RachellesherryJohncorywalter Carrion Primary Care Provider [phone] Prince Owens MD Unavailable [phone] Encounter Details Date Type Department Care Team (Late st Contact Info) Description 08/10/2024 Orders Only [facility] Hematology/Oncology [address] [place] [phone] Prince Owens MD [address] [place] [address] Social History Tobacco Use Types Packs/Day Years [...] Encounter Note - Prince Owens MD - 08/10/2024 10:02 AM EDT Results normal/stable. I have notified the patient via [employer]. documented in this encounter Plan of Treatment Upcoming Encounters Date Type Department Care Team (Late st Contact Info) Description 07/19/2025 9:00 AM EDT Office Visit [facility] Hematology/Oncology [address] [place] [phone] Prince Owens MD [address] [place] [address] R/S from 8- due to mother passing away 11/18/2025 2:00 PM EST Office Visit [facility] Dermatology [address] [place] [address] Iván Guajardo MD [address] [place], [place] [phone] Return in about 1 year (around 11/18/2025). documented as of this encounter Procedures * Due to [place] [employer] law, this organization might not be sharing negative HIV tests. Procedure Name Priority Date/Time Associated Diagnosis Comments CBC INCLUDES DIFFERENTIAL AND PLATELET COUNT Routine 08/10/2024 10:02 AM EDT Acquired hemolytic anemia LACTATE DEHYDROGENASE (LDH), SERUM Routine 08/10/2024 10:02 AM EDT Acquired hemolytic anemia COMPREHENSIVE METABOLIC PANEL WITH GFR Routine 08/10/2024 10:02 AM EDT Acquired hemolytic anemia documented in this encounter Results * Due to [place] [employer] law, this organization might not be sharing negative HIV tests. * (ABNORMAL) CBC INCLUDES DIFFERENTIAL AND PLATELET COUNT (08/10/2024 10:02 AM EDT) WBC 5.6 3.8 - 10.8 Thousand/ uL [facility] RBC 3.05(L) 4.20 - 5.80 Million/u L [facility] Hemoglobin 10.1(L) 13.2 - 17.1 g/dL [facility] Hematocrit 32.1(L) 38.5 - 50.0 % [facility] MCV 105.2(H) 80.0 - 100.0 fL [facility] MCH 33.1(H) 27.0 - 33.0 pg [facility] MCHC 31.5(L) 32.0 - 36.0 g/dL [facility] Comment: For adults, a slight decrease in the calculated MCHC value (in the range of 30 to 32 g/dL) is most likely not clinically significant; however, it should be interpreted with caution in correlation with other red cell parameters and the patient's clinical condition. RDW 12.9 11.0 - 15.0 % [facility] PLT 255 140 - 400 Thousand/ uL [facility] MPV 9.9 7.5 - 12.5 fL [facility] Neutrophils # 3153 1500 - 7800 cells/uL [facility] Lymphocytes # 1848 850 - 3900 cells/uL [facility] Monocytes # 420 200 - 950 cells/uL [facility] Eosinophils # 151 15 - 500 cells/uL [facility] Basophils # 28 0 - 200 cells/uL [facility] Neutrophils % 56.3 % [facility] Lymphocytes % 33.0 % [facility] Monocytes % 7.5 % [facility] Eosinophils % 2.7 % [facility] Basophils % 0.5 % [facility] 08/10/2024 10:0 2 AM EDT 08/10/2024 10:08 PM EDT Narrative Resulting Agency Comment [id number] us Prince Owens MD LAB SAME DAY RESULT Final Result [facility] [address] [place] [address] * (ABNORMAL) COMPREHENSIVE METABOLIC PANEL WITH GFR (08/10/2024 10:02 AM EDT) Glucose 131(H) 65 - 99 mg/dL [facility] Comment: Fasting reference interval For someone without known diabetes, a glucose value >125 mg/dL indicates that they may have diabetes and this should be confirmed with a follow-up test. Urea Nitrogen Blood (BUN) 12 7 - 25 mg/dL [facility] Creatinine 1.07 0.70 - 1.35 mg/dL [facility] EGFR 77 > OR = 60 mL/min/1. 73m2 [facility] BUN/Creatinine Ratio SEE NOTE: 6 - 22 (calc) [facility] Comment: Not Reported: BUN and Creatinine are within reference range. Sodium 139 135 - 146 mmol/L [facility] Potassium 4.4 3.5 - 5.3 mmol/L [facility] Chloride 102 98 - 110 mmol/L [facility] Carbon dioxide 31 20 - 32 mmol/L [facility] Calcium 9.6 8.6 - 10.3 mg/dL [facility] Protein Total (Serum) 6.9 6.1 - 8.1 g/dL [facility] Albumin 4.9 3.6 - 5.1 g/dL [facility] Globulin 2.0 1.9 - 3.7 g/dL (calc) [facility] Albumin/Globuli n 2.5 1.0 - 2.5 (calc) [facility] Bilirubin Total 3.2(H) 0.2 - 1.2 mg/dL [facility] Alkaline phosphatase 60 35 - 144 U/L [facility] AST (SGOT) 18 10 - 35 U/L [facility] ALT (SGPT) 28 9 - 46 U/L [facility] 08/10/2024 10:0 2 AM EDT 08/10/2024 10:08 PM EDT Narrative [facility] - 08/11/2024 9:29 AM EDT Please note that this estimated GFR does [...] needs for GFR calculation. Resulting Agency Comment [id number] us Prince Owens MD LABORATORY Final Resu lt [facility] [address] [place] [address] * LACTATE DEHYDROGENASE (LDH), SERUM (08/10/2024 10:02 AM EDT) Lactate dehydrogenase 199 120 - 250 U/L [facility] 08/10/2024 10:0 2 AM EDT 08/10/2024 10:08 PM EDT Narrative Resulting Agency Comment [id number] us Prince Owens MD LABORATORY Final Resu lt [facility] [address] [place] [address] documented in this encounter Visit Diagnoses Diagnosis Acquired hemolytic anemia (HCC) Acquired hemolytic anemia, unspecified documented in this encounter Care Teams Aeronautics Teacher Relationship Specialty Start Date End Date Manoj Agudelo I [address] [address] [place] [address] PCP - General Family Medicine 02/05/18 Prince Owens MD [address] [place] [address] Primary Hem Onc Provider Hematology/Oncology 04/18/25 documented as of this encounter
--- OUTSIDE RECORDS SUMMARY | 2025-07-08 14:29 | XMS_ITS | Encounter Summary ---
Author Organization [facility] Address [address] [place] [address] Care Team Providers Care Corporate Tutor Name Role Phone Manoj Agudelo I Primary Care Provider [phone] Prince Owens MD Unavailable [phone] Encounter Details Date Type Department Care Team (Late st Contact Info) Description 06/15/2024 Orders Only [facility] Hematology/Oncology [address] [place] [address] La Nena Welch, RN [address] [place] [address] Social History Tobacco Use Types Packs/Day Years [...] Encounter Note - Prince Owens MD - 06/15/2024 10:45 AM EDT Notified patient of results via [employer] message. documented in this encounter Plan of Treatment Upcoming Encounters Date Type Department Care Team (Late st Contact Info) Description 07/19/2025 9:00 AM EDT Office Visit [facility] Hematology/Oncology [address] [place] [phone] Prince Owens MD [address] [place] [address] R/S from 8-28 due to mother passing away 11/18/2025 2:00 PM EST Office Visit [facility] Dermatology [address] [place] [phone] Iván Guajardo MD [address] [place], [place] [phone] Return in about 1 year (around 11/18/2025). documented as of this encounter Procedures * Due to [facility] law, this organization might not be sharing negative HIV tests. Procedure Name Priority Date/Time Associated Diagnosis Comments CBC INCLUDES DIFFERENTIAL AND PLATELET COUNT Routine 06/15/2024 10:45 AM EDT Acquired hemolytic anemia documented in this encounter Results * Due to [facility] law, this organization might not be sharing negative HIV tests. * (ABNORMAL) CBC INCLUDES DIFFERENTIAL AND PLATELET COUNT (06/15/2024 10:45 AM EDT) WBC 6.9 3.8 - 10.8 Thousand/u L [facility] RBC 2.45(L) 4.20 - 5.80 Million/uL [facility] Hemoglobin 8.2(L) 13.2 - 17.1 g/dL [facility] Hematocrit 26.3(L) 38.5 - 50.0 % [facility] MCV 107.3(H) 80.0 - 100.0 fL [facility] MCH 33.5(H) 27.0 - 33.0 pg [facility] MCHC 31.2(L) 32.0 - 36.0 g/dL [facility] RDW 13.5 11.0 - 15.0 % [facility] PLT 279 140 - 400 Thousand/u L [facility] MPV 10.0 7.5 - 12.5 fL [facility] Neutrophils # 4050 1500 - 7800 cells/uL [facility] Lymphocytes # 2111 850 - 3900 cells/uL [facility] Monocytes # 504 200 - 950 cells/uL [facility] Eosinophils # 193 15 - 500 cells/uL [facility] Basophils # 41 0 - 200 cells/uL [facility] Neutrophils % 58.7 % [facility] Lymphocytes % 30.6 % [facility] Monocytes % 7.3 % [facility] Eosinophils % 2.8 % [facility] Basophils % 0.6 % [facility] 06/15/2024 10:4 5 AM EDT 06/16/2024 12:21 AM EDT Narrative Resulting Agency Comment [id number] us Prince Owens MD LAB SAME DAY RESULT Final Result Performing Organization Address City/State/[place] Co de Phone Number [facility] [address] [place] [address] documented in this encounter Visit Diagnoses Diagnosis Acquired hemolytic anemia (HCC) Acquired hemolytic anemia, unspecified documented in this encounter Care Teams Corporate Tutor Relationship Specialty Start Date End Date Manoj Agudelo I [address] [address] [place] [address] PCP - General Family Medicine 02/05/18 Prince Owens MD [address] [place] [address] Primary Hem Onc Provider Hematology/Oncology 04/18/25 documented as of this encounter
--- OUTSIDE RECORDS SUMMARY | 2025-07-08 14:29 | XMS_ITS | Encounter Summary ---
Author Organization [facility] Address [address] [place] [address] Care Team Providers Care Applied Psychology Teacher Name Role Phone SantinochristianeJohncorywalter Carrion Primary Care Provider [phone] Prince Owens MD Unavailable [phone] Encounter Details Date Type Department Care Team (Late st Contact Info) Description 07/27/2024 Orders Only [facility] Hematology/Oncology [address] [place] [phone] Prince Owens MD [address] [place] [address] Social History Tobacco Use Types Packs/Day Years [...] Encounter Note - Prince Owens MD - 07/27/2024 3:21 PM EDT Results normal/stable. I have notified the patient via [employer]. documented in this encounter Plan of Treatment Upcoming Encounters Date Type Department Care Team (Late st Contact Info) Description 07/19/2025 9:00 AM EDT Office Visit [facility] Hematology/Oncology [address] [place] [phone] Prince Owens MD [address] [place] [address] R/S from 8- due to mother passing away 11/18/2025 2:00 PM EST Office Visit [facility] Dermatology [address] [place] [address] Iván Guajardo MD [address] [place], [place] [phone] Return in about 1 year (around 11/18/2025). documented as of this encounter Procedures * Due to [place] [employer] law, this organization might not be sharing negative HIV tests. Procedure Name Priority Date/Time Associated Diagnosis Comments CBC INCLUDES DIFFERENTIAL AND PLATELET COUNT Routine 07/27/2024 3:21 PM EDT Acquired hemolytic anemia LACTATE DEHYDROGENASE (LDH), SERUM Routine 07/27/2024 3:21 PM EDT Acquired hemolytic anemia COMPREHENSIVE METABOLIC PANEL WITH GFR Routine 07/27/2024 3:21 PM EDT Acquired hemolytic anemia documented in this encounter Results * Due to [place] [employer] law, this organization might not be sharing negative HIV tests. * (ABNORMAL) CBC INCLUDES DIFFERENTIAL AND PLATELET COUNT (07/27/2024 3:21 PM EDT) WBC 6.6 3.8 - 10.8 Thousand/u L [facility] RBC 3.26(L) 4.20 - 5.80 Million/uL [facility] Hemoglobin 11.1(L) 13.2 - 17.1 g/dL [facility] Hematocrit 33.4(L) 38.5 - 50.0 % [facility] MCV 102.5(H) 80.0 - 100.0 fL [facility] MCH 34.0(H) 27.0 - 33.0 pg [facility] MCHC 33.2 32.0 - 36.0 g/dL [facility] RDW 13.2 11.0 - 15.0 % [facility] PLT 248 140 - 400 Thousand/u L [facility] MPV 10.0 7.5 - 12.5 fL [facility] Neutrophils # 3683 1500 - 7800 cells/uL [facility] Lymphocytes # 2257 850 - 3900 cells/uL [facility] Monocytes # 515 200 - 950 cells/uL [facility] Eosinophils # 112 15 - 500 cells/uL [facility] Basophils # 33 0 - 200 cells/uL [facility] Neutrophils % 55.8 % [facility] Lymphocytes % 34.2 % [facility] Monocytes % 7.8 % [facility] Eosinophils % 1.7 % [facility] Basophils % 0.5 % [facility] 07/27/2024 3:21 PM EDT 07/28/2024 3:37 AM EDT Narrative Resulting Agency Comment [id number] us Prince Owens MD LAB SAME DAY RESULT Final Result [facility] [address] [place] [address] * (ABNORMAL) COMPREHENSIVE METABOLIC PANEL WITH GFR (07/27/2024 3:21 PM EDT) Glucose 189(H) 65 - 99 mg/dL [facility] Comment: Fasting reference interval For someone without known diabetes, a glucose value >125 mg/dL indicates that they may have diabetes and this should be confirmed with a follow-up test. Urea Nitrogen Blood (BUN) 24 7 - 25 mg/dL [facility] Creatinine 1.06 0.70 - 1.35 mg/dL [facility] EGFR 78 > OR = 60 mL/min/1. 73m2 [facility] BUN/Creatinine Ratio SEE NOTE: 6 - 22 (calc) [facility] Comment: Not Reported: BUN and Creatinine are within reference range. Sodium 140 135 - 146 mmol/L [facility] Potassium 4.2 3.5 - 5.3 mmol/L [facility] Chloride 101 98 - 110 mmol/L [facility] Carbon dioxide 28 20 - 32 mmol/L [facility] Calcium 9.4 8.6 - 10.3 mg/dL [facility] Protein Total (Serum) 7.1 6.1 - 8.1 g/dL [facility] Albumin 4.8 3.6 - 5.1 g/dL [facility] Globulin 2.3 1.9 - 3.7 g/dL (calc) [facility] Albumin/Globuli n 2.1 1.0 - 2.5 (calc) [facility] Bilirubin Total 4.1(H) 0.2 - 1.2 mg/dL [facility] Alkaline phosphatase 66 35 - 144 U/L [facility] AST (SGOT) 18 10 - 35 U/L [facility] ALT (SGPT) 32 9 - 46 U/L [facility] 07/27/2024 3:21 PM EDT 07/28/2024 3:37 AM EDT Narrative [facility] - 07/28/2024 12:56 PM EDT Please note that this estimated GFR [...] needs for GFR calculation. Resulting Agency Comment [id number] us Prince Owens MD LABORATORY Final Resu lt Performing Organization Address City/[facility] Co de Phone Number [facility] [address] [place] [phone] * LACTATE DEHYDROGENASE (LDH), SERUM (07/27/2024 3:21 PM EDT) Lactate dehydrogenase 193 120 - 250 U/L [facility] 07/27/2024 3:21 PM EDT 07/28/2024 3:37 AM EDT Narrative Resulting Agency Comment [id number] Prince Owens MD LABORATORY Final Resu lt Performing Organization Address City/State/[facility] Co de Phone Number [facility] [address] [place] [address] documented in this encounter Visit Diagnoses Diagnosis Acquired hemolytic anemia (HCC) Acquired hemolytic anemia, unspecified documented in this encounter Care Teams Applied Psychology Teacher Relationship Specialty Start Date End Date Manoj Agudelo I [address] [place] [address] PCP - General Family Medicine 02/05/18 Prince Owens MD [address] [place] [address] Primary Hem Onc Provider Hematology/Oncology 04/18/25 documented as of this encounter
--- OUTSIDE RECORDS SUMMARY | 2025-07-08 14:29 | XMS_ITS | Encounter Summary ---
Author Organization [facility] Address [address] [place] [address] Care Team Providers Care Elect Equip Maint Eng Name Role Phone Manoj Agudelo I Primary Care Provider [phone] Prince Owens MD Unavailable [phone] Encounter Details Date Type Department Care Team (Late st Contact Info) Description 08/31/2024 Orders Only [facility] Hematology/Oncology [address] [place] [address] La Nena Welch, RN [address] [place] [address] Social History Tobacco Use Types Packs/Day Years [...] Encounter Note - Prince Owens MD - 08/31/2024 2:08 PM EDT Notified patient of results via [employer] message. documented in this encounter Plan of Treatment Upcoming Encounters Date Type Department Care Team (Late st Contact Info) Description 07/19/2025 9:00 AM EDT Office Visit [facility] Hematology/Oncology [address] [place] [phone] Prince Owens MD [address] [place] [address] R/S from 8-28 due to mother passing away 11/18/2025 2:00 PM EST Office Visit [facility] Dermatology [address] [place] [phone] Iván Guajardo MD [address] [place], [place] [phone] Return in about 1 year (around 11/18/2025). documented as of this encounter Procedures * Due to [facility] law, this organization might not be sharing negative HIV tests. Procedure Name Priority Date/Time Associated Diagnosis Comments CBC INCLUDES DIFFERENTIAL AND PLATELET COUNT Routine 08/31/2024 2:08 PM EDT Acquired hemolytic anemia documented in this encounter Results * Due to [facility] law, this organization might not be sharing negative HIV tests. * (ABNORMAL) CBC INCLUDES DIFFERENTIAL AND PLATELET COUNT (08/31/2024 2:08 PM EDT) WBC 7.5 3.8 - 10.8 Thousand/ uL [facility] RBC 2.82(L) 4.20 - 5.80 Million/u L [facility] Hemoglobin 9.3(L) 13.2 - 17.1 g/dL [facility] Hematocrit 29.8(L) 38.5 - 50.0 % [facility] MCV 105.7(H) 80.0 - 100.0 fL [facility] MCH 33.0 27.0 - 33.0 pg [facility] MCHC 31.2(L) 32.0 - 36.0 g/dL [facility] Comment: For adults, a slight decrease in the calculated MCHC value (in the range of 30 to 32 g/dL) is most likely not clinically significant; however, it should be interpreted with caution in correlation with other red cell parameters and the patient's clinical condition. RDW 13.4 11.0 - 15.0 % [facility] PLT 287 140 - 400 Thousand/ uL [facility] MPV 10.1 7.5 - 12.5 fL [facility] Neutrophils # 5723 1500 - 7800 cells/uL [facility] Lymphocytes # 1320 850 - 3900 cells/uL [facility] Monocytes # 368 200 - 950 cells/uL [facility] Eosinophils # 60 15 - 500 cells/uL [facility] Basophils # 30 0 - 200 cells/uL [facility] Neutrophils % 76.3 % [facility] Lymphocytes % 17.6 % [facility] Monocytes % 4.9 % [facility] Eosinophils % 0.8 % [facility] Basophils % 0.4 % [facility] 08/31/2024 2:08 PM EDT 09/01/2024 3:22 AM EDT Narrative Resulting Agency Comment [id number] us Prince Owens MD LAB SAME DAY RESULT Final Result Performing Organization Address City/State/[facility] de Phone Number [facility] [address] [place] [address] documented in this encounter Visit Diagnoses Diagnosis Acquired hemolytic anemia (HCC) Acquired hemolytic anemia, unspecified documented in this encounter Care Teams Elect Equip Maint Eng Relationship Specialty Start Date End Date Manoj Agudelo I [address] [phone] PCP - General Family Medicine 02/05/18 Prince Owens MD [address] [place] [address] Primary Hem Onc Provider Hematology/Oncology 04/18/25 documented as of this encounter
--- OUTSIDE RECORDS SUMMARY | 2025-07-08 14:29 | XMS_ITS | Encounter Summary ---
Author Organization [facility] Address [address] [place] [address] Care Team Providers Care Hair Tinter Name Role Phone RachellesherryJohncorywalter Carrion Primary Care Provider [phone]- [phone] Prince Owens MD Unavailable [phone] Encounter Details Date Type Department Care Team (Late st Contact Info) Description 10/11/2024 Orders Only [facility] Hematology/Oncology [address] [place] [phone] Prince Owens MD 5 [place] [address] Social History Tobacco Use Types Packs/Day Years [...] Encounter Note - Prince Owens MD - 10/11/2024 1:44 PM EST Results normal/stable. I have notified the patient via [employer] Boutique[employer]. documented in this encounter Plan of Treatment Upcoming Encounters Date Type Department Care Team (Late st Contact Info) Description 07/19/2025 9:00 AM EDT Office Visit [facility] Hematology/Oncology 5 [place] [phone] Prince Owens MD 5 [place] [address] R/S from - due to mother passing away 11/18/2025 2:00 PM EST Office Visit [facility] Dermatology 5 [place] [phone] Iván Guajardo MD [address] [place], [place] [phone] Return in about 1 year (around 11/18/2025). documented as of this encounter Procedures * Due to [place] [employer] law, this organization might not be sharing negative HIV tests. Procedure Name Priority Date/Time Associated Diagnosis Comments CBC INCLUDES DIFFERENTIAL AND PLATELET COUNT Routine 10/11/2024 1:44 PM EST Acquired hemolytic anemia LACTATE DEHYDROGENASE (LDH), SERUM Routine 10/11/2024 1:44 PM EST Acquired hemolytic anemia COMPREHENSIVE METABOLIC PANEL WITH GFR Routine 10/11/2024 1:44 PM EST Acquired hemolytic anemia documented in this encounter Results * Due to [place] [employer] law, this organization might not be sharing negative HIV tests. * LACTATE DEHYDROGENASE (LDH), SERUM (10/11/2024 1:44 PM EST) Lactate dehydrogenase 204 120 - 250 U/L [facility] 10/11/2024 1:44 PM EST 10/12/2024 2:09 AM EST Narrative Resulting Agency Comment [id number] Prince Owens MD LABORATORY Final Resu lt [email or web address] [address] [place] [address] * (ABNORMAL) COMPREHENSIVE METABOLIC PANEL WITH GFR (10/11/2024 1:44 PM EST) Glucose 126(H) 65 - 99 mg/dL [facility] Comment: Fasting reference interval For someone without known diabetes, a glucose value >125 mg/dL indicates that they may have diabetes and this should be confirmed with a follow-up test. Urea Nitrogen Blood (BUN) 23 7 - 25 mg/dL [facility] Creatinine 0.90 0.70 - 1.35 mg/dL [facility] EGFR 95 > OR = 60 mL/min/1. 73m2 [facility] BUN/Creatinine Ratio SEE NOTE: 6 - 22 (calc) [facility] Comment: Not Reported: BUN and Creatinine are within reference range. Sodium 141 135 - 146 mmol/L [facility] Potassium 4.3 3.5 - 5.3 mmol/L [facility] Chloride 106 98 - 110 mmol/L [facility] Carbon dioxide 25 20 - 32 mmol/L [facility] Calcium 9.2 8.6 - 10.3 mg/dL [facility] Protein Total (Serum) 7.1 6.1 - 8.1 g/dL [facility] Albumin 4.9 3.6 - 5.1 g/dL [facility] Globulin 2.2 1.9 - 3.7 g/dL (calc) [facility] Albumin/Globuli n 2.2 1.0 - 2.5 (calc) [facility] Bilirubin Total 3.6(H) 0.2 - 1.2 mg/dL [facility] Alkaline phosphatase 64 35 - 144 U/L [facility] AST (SGOT) 16 10 - 35 U/L [facility] ALT (SGPT) 21 9 - 46 U/L [facility] 10/11/2024 1:44 PM EST 10/12/2024 2:09 AM EST Narrative [facility] - 10/12/2024 7:36 AM EST Please note that this estimated [...] needs for GFR calculation. Resulting Agency Comment [id number] Prince Owens MD LABORATORY Final Resu lt Performing Organization Address City/[facility]/ZIP Co de Phone Number [facility] [address] [place] [address] * (ABNORMAL) CBC INCLUDES DIFFERENTIAL AND PLATELET COUNT (10/11/2024 1:44 PM EST) WBC 8.8 3.8 - 10.8 Thousand/ uL [facility] RBC 3.21(L) 4.20 - 5.80 Million/u L [facility] Hemoglobin 10.8(L) 13.2 - 17.1 g/dL [facility] Hematocrit 33.1(L) 38.5 - 50.0 % [facility] MCV 103.1(H) 80.0 - 100.0 fL [facility] MCH 33.6(H) 27.0 - 33.0 pg [facility] MCHC 32.6 32.0 - 36.0 g/dL [facility] Comment: For adults, a slight decrease in the calculated MCHC value (in the range of 30 to 32 g/dL) is most likely not clinically significant; however, it should be interpreted with caution in correlation with other red cell parameters and the patient's clinical condition. RDW 13.2 11.0 - 15.0 % [facility] PLT 261 140 - 400 Thousand/ uL [facility] MPV 10.2 7.5 - 12.5 fL [facility] Neutrophils # 6899 1500 - 7800 cells/uL [facility] Lymphocytes # 1285 850 - 3900 cells/uL [facility] Monocytes # 466 200 - 950 cells/uL [facility] Eosinophils # 97 15 - 500 cells/uL [facility] Basophils # 53 0 - 200 cells/uL [facility] Neutrophils % 78.4 % [facility] Lymphocytes % 14.6 % [facility] Monocytes % 5.3 % [facility] Eosinophils % 1.1 % [facility] Basophils % 0.6 % [facility] 10/11/2024 1:44 PM EST 10/12/2024 2:09 AM EST Narrative Resulting Agency Comment [id number] Prince Owens MD LAB SAME DAY RESULT Final Result Performing Organization Address City/[facility]/ZIP Co de Phone Number [facility] [address] [place] [address] documented in this encounter Visit Diagnoses Diagnosis Acquired hemolytic anemia (HCC) Acquired hemolytic anemia, unspecified documented in this encounter Care Teams Hair Tinter Relationship Specialty Start Date End Date Manoj Agudelo I [address] [address] PCP - General Family Medicine 02/05/18 Prince Owens MD [address] [place] [address] Primary Hem Onc Provider Hematology/Oncology 04/18/25 documented as of this encounter
--- OUTSIDE RECORDS SUMMARY | 2025-07-08 14:29 | XMS_ITS | Encounter Summary ---
Author Organization [facility] Address [address] [place] [address] Care Team Providers Care Distributor Of Directories Name Role Phone Manoj Agudelo I Primary Care Provider [phone] Prince Owens MD Unavailable [phone] Encounter Details Date Type Department Care Team (Late st Contact Info) Description 06/29/2024 Orders Only [facility] Hematology/Oncology 5 [place] [address] La Nena Welch, RN [address] [place] [address] Social History Tobacco Use Types Packs/Day Years [...] Encounter Note - Prince Owens MD - 06/29/2024 11:58 AM EDT Notified patient of results via Personer[employer] message. documented in this encounter Plan of Treatment Upcoming Encounters Date Type Department Care Team (Late st Contact Info) Description 07/19/2025 9:00 AM EDT Office Visit [facility] Hematology/Oncology 5 [place] [phone] Prince Owens MD 5 [place] [address] R/S from 8-28 due to mother passing away 11/18/2025 2:00 PM EST Office Visit [facility] Dermatology 5 [place] [phone] Iván Guajardo MD [address] [place], [place] [phone] Return in about 1 year (around 11/18/2025). documented as of this encounter Procedures * Due to [facility] law, this organization might not be sharing negative HIV tests. Procedure Name Priority Date/Time Associated Diagnosis Comments CBC INCLUDES DIFFERENTIAL AND PLATELET COUNT Routine 06/29/2024 11:58 AM EDT Acquired hemolytic anemia documented in this encounter Results * Due to [facility] law, this organization might not be sharing negative HIV tests. * (ABNORMAL) CBC INCLUDES DIFFERENTIAL AND PLATELET COUNT (06/29/2024 11:58 AM EDT) WBC 9.0 3.8 - 10.8 Thousand/u L [facility] RBC 3.31(L) 4.20 - 5.80 Million/uL [facility] Hemoglobin 11.5(L) 13.2 - 17.1 g/dL [facility] Hematocrit 34.1(L) 38.5 - 50.0 % [facility] MCV 103.0(H) 80.0 - 100.0 fL [facility] MCH 34.7(H) 27.0 - 33.0 pg [facility] MCHC 33.7 32.0 - 36.0 g/dL [facility] RDW 12.5 11.0 - 15.0 % [facility] PLT 185 140 - 400 Thousand/u L [facility] MPV 10.1 7.5 - 12.5 fL [facility] Neutrophils # 6651 1500 - 7800 cells/uL [facility] Lymphocytes # 1593 850 - 3900 cells/uL [facility] Monocytes # 585 200 - 950 cells/uL [facility] Eosinophils # 117 15 - 500 cells/uL [facility] Basophils # 54 0 - 200 cells/uL [facility] Neutrophils % 73.9 % [facility] Lymphocytes % 17.7 % [facility] Monocytes % 6.5 % [facility] Eosinophils % 1.3 % [facility] Basophils % 0.6 % [facility] 06/29/2024 11:5 8 AM EDT 06/30/2024 12:53 AM EDT Narrative Resulting Agency Comment [id number] us Prince Owens MD LAB SAME DAY RESULT Final Result Performing Organization Address City/State/[facility] Co de Phone Number [facility] [address] [place] [address] documented in this encounter Visit Diagnoses Diagnosis Acquired hemolytic anemia (HCC) Acquired hemolytic anemia, unspecified documented in this encounter Care Teams Distributor Of Directories Relationship Specialty Start Date End Date Manoj Agudelo I [address] [address] [place] [address] PCP - General Family Medicine 02/05/18 Prince Owens MD [address] [place] [address] Primary Hem Onc Provider Hematology/Oncology 04/18/25 documented as of this encounter
--- OUTSIDE RECORDS SUMMARY | 2025-07-08 14:29 | XMS_ITS | Encounter Summary ---
Author Organization [facility] Address [address] [place] [address] Care Team Providers Care Night Clerk Name Role Phone RachellesherryJohncorywalter Carrion Primary Care Provider [phone]- [phone] Prince Owens MD Unavailable [phone] Encounter Details Date Type Department Care Team (Late st Contact Info) Description 10/25/2024 Orders Only [facility] Hematology/Oncology [address] [place] [phone] Prince Owens MD [address] [place] [address] Social History Tobacco Use Types Packs/Day Years [...] Encounter Note - Prince Owens MD - 10/25/2024 11:00 AM EST Results normal/stable. I have notified the patient via 2d2chart. documented in this encounter Plan of Treatment Upcoming Encounters Date Type Department Care Team (Late st Contact Info) Description 07/19/2025 9:00 AM EDT Office Visit [facility] Hematology/Oncology [address] [place] [address] Prince Owens MD [address] [place] [address] R/S from - due to mother passing away 11/18/2025 2:00 PM EST Office Visit [facility] Dermatology 5 [place] [phone] Iván Guajardo MD [address] [place], [place] [phone] Return in about 1 year (around 11/18/2025). documented as of this encounter Procedures * Due to [place] [employer] law, this organization might not be sharing negative HIV tests. Procedure Name Priority Date/Time Associated Diagnosis Comments CBC INCLUDES DIFFERENTIAL AND PLATELET COUNT Routine 10/25/2024 11:00 AM EST Acquired hemolytic anemia LACTATE DEHYDROGENASE (LDH), SERUM Routine 10/25/2024 11:00 AM EST Acquired hemolytic anemia COMPREHENSIVE METABOLIC PANEL WITH GFR Routine 10/25/2024 11:00 AM EST Acquired hemolytic anemia documented in this encounter Results * Due to [place] [employer] law, this organization might not be sharing negative HIV tests. * (ABNORMAL) CBC INCLUDES DIFFERENTIAL AND PLATELET COUNT (10/25/2024 11:00 AM EST) WBC 8.5 3.8 - 10.8 Thousand/ uL [facility] RBC 3.21(L) 4.20 - 5.80 Million/u L [facility] Hemoglobin 10.6(L) 13.2 - 17.1 g/dL [facility] Hematocrit 32.9(L) 38.5 - 50.0 % [facility] MCV 102.5(H) 80.0 - 100.0 fL [facility] MCH 33.0 27.0 - 33.0 pg [facility] MCHC 32.2 32.0 - 36.0 g/dL [facility] Comment: For adults, a slight decrease in the calculated MCHC value (in the range of 30 to 32 g/dL) is most likely not clinically significant; however, it should be interpreted with caution in correlation with other red cell parameters and the patient's clinical condition. RDW 12.5 11.0 - 15.0 % [facility] PLT 255 140 - 400 Thousand/ uL [facility] MPV 9.9 7.5 - 12.5 fL [facility] Neutrophils # 6945 1500 - 7800 cells/uL [facility] Lymphocytes # 1054 850 - 3900 cells/uL [facility] Monocytes # 408 200 - 950 cells/uL [facility] Eosinophils # 43 15 - 500 cells/uL [facility] Basophils # 51 0 - 200 cells/uL [facility] Neutrophils % 81.7 % [facility] Lymphocytes % 12.4 % [facility] Monocytes % 4.8 % [facility] Eosinophils % 0.5 % [facility] Basophils % 0.6 % [facility] 10/25/2024 11:0 0 AM EST 10/26/2024 2:43 AM EST Narrative Resulting Agency Comment [id number] us Prince Owens MD LAB SAME DAY RESULT Final Result Performing Organization Address City/State/[facility] Co de Phone Number [facility] [address] [place] [address] * (ABNORMAL) COMPREHENSIVE METABOLIC PANEL WITH GFR (10/25/2024 11:00 AM EST) Glucose 147(H) 65 - 99 mg/dL [facility] Comment: Fasting reference interval For someone without known diabetes, a glucose value >125 mg/dL indicates that they may have diabetes and this should be confirmed with a follow-up test. Urea Nitrogen Blood (BUN) 14 7 - 25 mg/dL [facility] Creatinine 0.87 0.70 - 1.35 mg/dL [facility] EGFR 96 > OR = 60 mL/min/1. 73m2 [facility] BUN/Creatinine Ratio SEE NOTE: 6 - 22 (calc) [facility] Comment: Not Reported: BUN and Creatinine are within reference range. Sodium 138 135 - 146 mmol/L [facility] Potassium 4.4 3.5 - 5.3 mmol/L [facility] Chloride 102 98 - 110 mmol/L [facility] Carbon dioxide 28 20 - 32 mmol/L [facility] Calcium 9.0 8.6 - 10.3 mg/dL [facility] Protein Total (Serum) 7.0 6.1 - 8.1 g/dL [facility] Albumin 5.0 3.6 - 5.1 g/dL [facility] Globulin 2.0 1.9 - 3.7 g/dL (calc) [facility] Albumin/Globuli n 2.5 1.0 - 2.5 (calc) [facility] Bilirubin Total 3.8(H) 0.2 - 1.2 mg/dL [facility] Alkaline phosphatase 52 35 - 144 U/L [facility] AST (SGOT) 15 10 - 35 U/L [facility] ALT (SGPT) 20 9 - 46 U/L [facility] 10/25/2024 11:0 0 AM EST 10/26/2024 2:43 AM EST Narrative [facility] - 10/26/2024 5:56 AM EST Please note that this estimated [...] needs for GFR calculation. Resulting Agency Comment [id number] Prince Owens MD LABORATORY Final Resu lt Performing Organization Address City/[facility]/ZIP Co de Phone Number [facility] [address] [place] [address] * LACTATE DEHYDROGENASE (LDH), SERUM (10/25/2024 11:00 AM EST) Lactate dehydrogenase 196 120 - 250 U/L [facility] 10/25/2024 11:0 0 AM EST 10/26/2024 2:43 AM EST Narrative Resulting Agency Comment [id number] Prince Owens MD LABORATORY Final Resu lt [facility] [address] [place] [address] documented in this encounter Visit Diagnoses Diagnosis Acquired hemolytic anemia (HCC) Acquired hemolytic anemia, unspecified documented in this encounter Care Teams Night Clerk Relationship Specialty Start Date End Date Manoj Agudelo I [address] [address] PCP - General Family Medicine 02/05/18 Prince Owens MD [address] [place] [address] Primary Hem Onc Provider Hematology/Oncology 04/18/25 documented as of this encounter
--- OUTSIDE RECORDS SUMMARY | 2025-07-08 14:29 | XMS_ITS | Encounter Summary ---
Author Organization [facility] Address [address] [place] [address] Care Team Providers Care Jacquard Loom Card Changer Name Role Phone SantinochristianeManoj I Primary Care Provider [phone] Prince Owens MD Unavailable [phone] Encounter Details Date Type Department Care Team (Late Contact Info) Description 06/22/2024 Orders Only [facility] Hematology/Oncology [address] [place] [phone] La Nena Welch, RN [address] [place] [address] Social History Tobacco Use Types Packs/Day Years [...] Office Visit [facility] Hematology/Oncology [address] [place] [phone] Prince Owens MD [address] [place] [address] R/S from 8- due to mother passing away 11/18/2025 2:00 PM EST Office Visit [facility] Dermatology 5 [place] [phone] Iván Guajardo MD 5 [place] [address] Return in about 1 year (around 11/18/2025). documented as of this encounter Procedures * Due to [facility] law, this organization might not be sharing negative HIV tests. Procedure Name Priority Date/Time Associated Diagnosis Comments CBC INCLUDES DIFFERENTIAL AND PLATELET COUNT Routine 06/22/2024 12:06 PM EDT Acquired hemolytic anemia documented in this encounter Results * Due to [facility] law, this organization might not be sharing negative HIV tests. * (ABNORMAL) CBC INCLUDES DIFFERENTIAL AND PLATELET COUNT (06/22/2024 12:06 PM EDT) WBC 7.9 3.8 - 10.8 Thousand/u L [facility] RBC 2.95(L) 4.20 - 5.80 Million/uL [facility] Hemoglobin 9.9(L) 13.2 - 17.1 g/dL [facility] Hematocrit 30.9(L) 38.5 - 50.0 % [facility] MCV 104.7(H) 80.0 - 100.0 fL [facility] MCH 33.6(H) 27.0 - 33.0 pg [facility] MCHC 32.0 32.0 - 36.0 g/dL [facility] RDW 13.2 11.0 - 15.0 % [facility] PLT 239 140 - 400 Thousand/u L [facility] MPV 9.9 7.5 - 12.5 fL [facility] Neutrophils # 6194 1500 - 7800 cells/uL [facility] Lymphocytes # 1185 850 - 3900 cells/uL [facility] Monocytes # 419 200 - 950 cells/uL [facility] Eosinophils # 71 15 - 500 cells/uL [facility] Basophils # 32 0 - 200 cells/uL [facility] Neutrophils % 78.4 % [facility] Lymphocytes % 15.0 % [facility] Monocytes % 5.3 % [facility] Eosinophils % 0.9 % [facility] Basophils % 0.4 % [facility] 06/22/2024 12:0 6 PM EDT 06/22/2024 4:35 PM EDT Narrative Resulting Agency Comment [id number] Prince Owens MD LAB SAME DAY RESULT Final Result [facility] [address] [place] [address] documented in this encounter Visit Diagnoses Diagnosis Acquired hemolytic anemia (HCC) Acquired hemolytic anemia, unspecified documented in this encounter Care Teams Jacquard Loom Card Changer Relationship Specialty Start Date End Date Manoj Agudelo I [address] [address] [place] [phone] PCP - General Family Medicine 02/05/18 Prince Owens MD [address] [place] [address] Primary Hem Onc Provider Hematology/Oncology 04/18/25 documented as of this encounter
--- OUTSIDE RECORDS SUMMARY | 2025-07-08 14:29 | XMS_ITS | Encounter Summary ---
Author Organization [facility] Address [address] [place] [address] Care Team Providers Care Alley Cleaner Name Role Phone RachellesherryJohncorywalter Carrion Primary Care Provider [phone] Prince Owens MD Unavailable [phone] Encounter Details Date Type Department Care Team (Late st Contact Info) Description 07/12/2024 Orders Only [facility] Hematology/Oncology 5 [place] [phone] Prince Owens MD 5 [place] [address] Social History Tobacco Use Types Packs/Day Years [...] Encounter Note - Prince Owens MD - 07/12/2024 9:00 AM EDT Results normal/stable. I have notified the patient via LocaModahart. documented in this encounter Plan of Treatment Upcoming Encounters Date Type Department Care Team (Late st Contact Info) Description 07/19/2025 9:00 AM EDT Office Visit [facility] Hematology/Oncology 5 [place] [phone] Prince Owens MD 5 [place] [address] R/S from 8- due to mother passing away 11/18/2025 2:00 PM EST Office Visit [facility] Dermatology 5 [place] [address] Iván Guajardo MD [address] [place], [place] [phone] Return in about 1 year (around 11/18/2025). documented as of this encounter Procedures * Due to [place] [employer] law, this organization might not be sharing negative HIV tests. Procedure Name Priority Date/Time Associated Diagnosis Comments CBC INCLUDES DIFFERENTIAL AND PLATELET COUNT Routine 07/12/2024 9:01 AM EDT Acquired hemolytic anemia LACTATE DEHYDROGENASE (LDH), SERUM Routine 07/12/2024 9:01 AM EDT Acquired hemolytic anemia COMPREHENSIVE METABOLIC PANEL WITH GFR Routine 07/12/2024 9:01 AM EDT Acquired hemolytic anemia documented in this encounter Results * Due to [place] [employer] law, this organization might not be sharing negative HIV tests. * (ABNORMAL) CBC INCLUDES DIFFERENTIAL AND PLATELET COUNT (07/12/2024 9:01 AM EDT) WBC 9.9 3.8 - 10.8 Thousand/u L [facility] RBC 3.49(L) 4.20 - 5.80 Million/uL [facility] Hemoglobin 11.8(L) 13.2 - 17.1 g/dL [facility] Hematocrit 35.9(L) 38.5 - 50.0 % [facility] MCV 102.9(H) 80.0 - 100.0 fL [facility] MCH 33.8(H) 27.0 - 33.0 pg [facility] MCHC 32.9 32.0 - 36.0 g/dL [facility] RDW 12.9 11.0 - 15.0 % [facility] PLT 213 140 - 400 Thousand/u L [facility] MPV 10.0 7.5 - 12.5 fL [facility] Neutrophils # 6425 1500 - 7800 cells/uL [facility] Lymphocytes # 2633 850 - 3900 cells/uL [facility] Monocytes # 693 200 - 950 cells/uL [facility] Eosinophils # 109 15 - 500 cells/uL [facility] Basophils # 40 0 - 200 cells/uL [facility] Neutrophils % 64.9 % [facility] Lymphocytes % 26.6 % [facility] Monocytes % 7.0 % [facility] Eosinophils % 1.1 % [facility] Basophils % 0.4 % [facility] 07/12/2024 9:01 AM EDT 07/13/2024 2:24 AM EDT Narrative Resulting Agency Comment [id number] us Prince Owens MD LAB SAME DAY RESULT Final Result [facility] [address] [place] [address] * (ABNORMAL) COMPREHENSIVE METABOLIC PANEL WITH GFR (07/12/2024 9:01 AM EDT) Glucose 194(H) 65 - 99 mg/dL [facility] Comment: Fasting reference interval For someone without known diabetes, a glucose value >125 mg/dL indicates that they may have diabetes and this should be confirmed with a follow-up test. Urea Nitrogen Blood (BUN) 20 7 - 25 mg/dL [facility] Creatinine 0.92 0.70 - 1.35 mg/dL [facility] EGFR 93 > OR = 60 mL/min/1. 73m2 [facility] BUN/Creatinine Ratio SEE NOTE: 6 - 22 (calc) [facility] Comment: Not Reported: BUN and Creatinine are within reference range. Sodium 141 135 - 146 mmol/L [facility] Potassium 4.2 3.5 - 5.3 mmol/L [facility] Chloride 101 98 - 110 mmol/L [facility] Carbon dioxide 31 20 - 32 mmol/L [facility] Calcium 9.9 8.6 - 10.3 mg/dL [facility] Protein Total (Serum) 7.1 6.1 - 8.1 g/dL [facility] Albumin 4.9 3.6 - 5.1 g/dL [facility] Globulin 2.2 1.9 - 3.7 g/dL (calc) [facility] Albumin/Globuli n 2.2 1.0 - 2.5 (calc) [facility] Bilirubin Total 3.2(H) 0.2 - 1.2 mg/dL [facility] Alkaline phosphatase 73 35 - 144 U/L [facility] AST (SGOT) 22 10 - 35 U/L [facility] ALT (SGPT) 46 9 - 46 U/L [facility] 07/12/2024 9:01 AM EDT 07/13/2024 2:24 AM EDT Narrative [facility] - 07/13/2024 6:09 AM EDT Please note that this estimated [...] needs for GFR calculation. Resulting Agency Comment [id number] Prince Owens MD LABORATORY Final Resu lt Performing Organization Address City/[facility] Co de Phone Number [facility] [address] [place] [address] * LACTATE DEHYDROGENASE (LDH), SERUM (07/12/2024 9:01 AM EDT) Lactate dehydrogenase 211 120 - 250 U/L [facility] 07/12/2024 9:01 AM EDT 07/13/2024 2:24 AM EDT Narrative Resulting Agency Comment [id number] Prince Owens MD LABORATORY Final Resu lt Performing Organization Address City/[facility] Co de Phone Number [facility] [address] [place] [address] documented in this encounter Visit Diagnoses Diagnosis Acquired hemolytic anemia (HCC) Acquired hemolytic anemia, unspecified documented in this encounter Care Teams Alley Cleaner Relationship Specialty Start Date End Date Manoj Agudelo I [address] [place] [address] PCP - General Family Medicine 02/05/18 Prince Owens MD [address] [place] [address] Primary Hem Onc Provider Hematology/Oncology 04/18/25 documented as of this encounter
--- OUTSIDE RECORDS SUMMARY | 2025-07-08 14:29 | XMS_ITS | Encounter Summary ---
Author Organization [facility] Address [address] [place] [address] Care Team Providers Care Machine Heel Seat Fitter Name Role Phone Manoj Agudelo I Primary Care Provider [phone] Prince Owens MD Unavailable [phone] Encounter Details Date Type Department Care Team (Late Contact Info) Description 08/17/2024 Orders Only [facility] Hematology/Oncology [address] [place] [phone] La Nena Welch, RN [address] [place] [address] Social History Tobacco Use Types Packs/Day Years [...] EDT Office Visit [facility] Hematology/Oncology [address] [place] [phone] Prince Owens MD [address] [place] [phone] R/S from 8-28 due to mother passing away 11/18/2025 2:00 PM EST Office Visit [facility] Dermatology 5 [place] [phone] Iván Guajardo MD 5 [place] [address] Return in about 1 year (around 11/18/2025). documented as of this encounter Procedures * Due to [facility] law, this organization might not be sharing negative HIV tests. Procedure Name Priority Date/Time Associated Diagnosis Comments CBC INCLUDES DIFFERENTIAL AND PLATELET COUNT Routine 08/17/2024 2:55 PM EDT Acquired hemolytic anemia documented in this encounter Results * Due to [facility] law, this organization might not be sharing negative HIV tests. * (ABNORMAL) CBC INCLUDES DIFFERENTIAL AND PLATELET COUNT (08/17/2024 2:55 PM EDT) WBC 5.9 3.8 - 10.8 Thousand/ uL [facility] RBC 2.95(L) 4.20 - 5.80 Million/u L [facility] Hemoglobin 10.2(L) 13.2 - 17.1 g/dL [facility] Hematocrit 31.0(L) 38.5 - 50.0 % [facility] MCV 105.1(H) 80.0 - 100.0 fL [facility] MCH 34.6(H) 27.0 - 33.0 pg [facility] MCHC [...] 11.0 - 15.0 % [facility] PLT 262 140 - 400 Thousand/ uL [facility] MPV 10.2 7.5 - 12.5 fL [facility] Neutrophils # 3351 1500 - 7800 cells/uL [facility] Lymphocytes # 1935 850 - 3900 cells/uL [facility] Monocytes # 443 200 - 950 cells/uL [facility] Eosinophils # 130 15 - 500 cells/uL [facility] Basophils # 41 0 - 200 cells/uL [facility] Neutrophils % 56.8 % [facility] Lymphocytes % 32.8 % [facility] Monocytes % 7.5 % [facility] Eosinophils % 2.2 % [facility] Basophils % 0.7 % [facility] 08/17/2024 2:55 PM EDT 08/17/2024 7:47 PM EDT Narrative Resulting Agency Comment [id number] us Prince Owens MD LAB SAME DAY RESULT Final Result [facility] [address] [place] [address] documented in this encounter Visit Diagnoses Diagnosis Acquired hemolytic anemia (HCC) Acquired hemolytic anemia, unspecified documented in this encounter Care Teams Machine Heel Seat Fitter Relationship Specialty Start Date End Date Manoj Agudelo I [address] [address] [place] [phone] PCP - General Family Medicine 02/05/18 Prince Owens MD 5 [place] [address] Primary Hem Onc Provider Hematology/Oncology 04/18/25 documented as of this encounter
--- OUTSIDE RECORDS SUMMARY | 2025-07-08 14:30 | XMS_ITS | Encounter Summary ---
Author Organization [facility] Address 5 [place] [address] Care Team Providers Care Certified Technician Name Role Phone Manoj Agudelo I Primary Care Provider [phone]- [phone] Prince Owens MD Unavailable [phone] Encounter Details Date Type Department Care Team ([facility] Contact Info) Description 01/17/2025 Orders Only [facility] Hematology/Oncology [address] [place] [phone] Prince Owens MD [address] [place] [address] Social History Tobacco Use Types Packs/Day Years [...] Upcoming Encounters Date Type Department Care Team ([facility] Contact Info) Description 07/19/2025 9:00 AM EDT Office Visit [facility] Hematology/Oncology [address] [place] [phone] Prince Owens MD 5 [place] [address] R/S from 8-28 due to mother passing away 11/18/2025 2:00 PM EST Office Visit [facility] Dermatology 5 [place] [phone] Iván Guajardo MD 5 [place] [address] Return in about 1 year (around 11/18/2025). documented as of this encounter Procedures * Due to [place] [employer] law, this organization might not be sharing negative HIV tests. Procedure Name Priority Date/Time Associated Diagnosis Comments LACTATE DEHYDROGENASE (LDH), SERUM Routine 01/17/2025 12:27 PM EDT Acquired hemolytic anemia COMPREHENSIVE METABOLIC PANEL WITH GFR Routine 01/17/2025 12:27 PM EDT Acquired hemolytic anemia documented in this encounter Results * Due to [place] [employer] law, this organization might not be sharing negative HIV tests. * LACTATE DEHYDROGENASE (LDH), SERUM (01/17/2025 12:27 PM EDT) Lactate dehydrogenase 194 120 - 250 U/L [facility] 01/17/2025 12:2 7 PM EDT 01/18/2025 1:00 AM EDT Narrative Resulting Agency Comment [id number] us Prince Owens MD LABORATORY Final Resu lt [facility] [address] [place] [address] * (ABNORMAL) COMPREHENSIVE METABOLIC PANEL WITH GFR (01/17/2025 12:27 PM EDT) Glucose 151(H) 65 - 99 mg/dL [facility] Comment: Fasting reference interval For someone without known diabetes, a glucose value >125 mg/dL indicates that they may have diabetes and this should be confirmed with a follow-up test. Urea Nitrogen Blood (BUN) 18 7 - 25 mg/dL [facility] Creatinine 0.89 0.70 - 1.35 mg/dL [facility] EGFR 96 > OR = 60 mL/min/1. 73m2 [facility] BUN/Creatinine Ratio SEE NOTE: 6 - 22 (calc) [facility] Comment: Not Reported: BUN and Creatinine are within reference range. Sodium 141 135 - 146 mmol/L [facility] Potassium 3.8 3.5 - 5.3 mmol/L [facility] Chloride 102 98 - 110 mmol/L [facility] Carbon dioxide 29 20 - 32 mmol/L [facility] Calcium 9.1 8.6 - 10.3 mg/dL [facility] Protein Total (Serum) 7.0 6.1 - 8.1 g/dL [facility] Albumin 4.9 3.6 - 5.1 g/dL [facility] Globulin 2.1 1.9 - 3.7 g/dL (calc) [facility] Albumin/Globuli n 2.3 1.0 - 2.5 (calc) [facility] Bilirubin Total 4.4(H) 0.2 - 1.2 mg/dL [facility] Alkaline phosphatase 59 35 - 144 U/L [facility] AST (SGOT) 16 10 - 35 U/L [facility] ALT (SGPT) 22 9 - 46 U/L [facility] 01/17/2025 12:2 7 PM EDT 01/18/2025 1:00 AM EDT Narrative [facility] - 01/18/2025 5:48 AM EDT Please note that this estimated [...] needs for GFR calculation. Resulting Agency Comment [id number] us Prince Owens MD LABORATORY Final Resu lt [facility] [address] [place] [address] documented in this encounter Visit Diagnoses Diagnosis Acquired hemolytic anemia (HCC) Acquired hemolytic anemia, unspecified documented in this encounter Care Teams Certified Technician Relationship Specialty Start Date End Date Manoj Agudelo I [address] [phone] PCP - General Family Medicine 02/05/18 Prince Owens MD [address] [place] [address] Primary Hem Onc Provider Hematology/Oncology 04/18/25 documented as of this encounter
--- OUTSIDE RECORDS SUMMARY | 2025-07-08 14:30 | XMS_ITS | Encounter Summary ---
Author Organization [facility] Address [address] [place] [address] Care Team Providers Care Excelsior Cutter Name Role Phone Manoj Agudelo I Primary Care Provider [phone] Prince Owens MD Unavailable [phone] Encounter Details Date Type Department Care Team (Late Contact Info) Description 11/01/2021 Professional Billing [facility] Pulmonary [address] [place] [address] [address] [place] [phone] Pauline Lyons MD Social History Tobacco Use Types Packs/Day Years Used Date Smoking Tobacco: Never Cigarettes Smokeless Tobacco: Never Sex and Gender Information Value Date Recorded Sex Assigned at Not on file Legal Sex Male 10:51 PM EDT Gender Identity Not on file Sexual Orientation Not on file documented as of this encounter Plan of Treatment Upcoming Encounters Date Type Department Care Team ([facility] Contact Info) Description 07/19/2025 9:00 AM EDT Office Visit [facility] Hematology/Oncology [address] [place] [phone] Prince Owens MD [address] [place] [phone] R/S from 06-30 due to mother passing away 11/18/2025 2:00 PM EST Office Visit [facility] Dermatology [address] [place] [phone] Iván Guajardo MD [address] [place] [address] Return in about 1 year (around 11/18/2025). documented as of this encounter Visit Diagnoses Not on filedocumented in this encounter Care Teams Excelsior Cutter Relationship Specialty Start Date End Date Manoj Agudelo I [address] [address] [place] [phone] PCP - General Family Medicine 02/05/18 Prince Owens MD 5 [place] [address] Primary Hem Onc Provider Hematology/Oncology 04/18/25 documented as of this encounter
--- OUTSIDE RECORDS SUMMARY | 2025-07-08 14:30 | XMS_ITS | Encounter Summary ---
Author Organization [facility] Address [address] [place] [address] Care Team Providers Care Presser And Shaper Knitted Goods Name Role Phone Manoj Agudelo I Primary Care Provider [phone] Prince Owens MD Unavailable Encounter Details Date Type Department Care Team (Late st Contact Info) Description 08/15/2023 Orders Only [facility] Hematology/Oncology 5 [place] [phone] La Nena Welch, RN 5 [place] [address] Social History Tobacco Use Types Packs/Day Years Used Date Smoking Tobacco: Never Cigarettes Smokeless Tobacco: Never Intimate Partner Violence Answer [...] Encounter Note - Prince Owens MD - 08/15/2023 11:35 AM EDT Results normal/stable. I have notified the patient via MyChart. documented in this encounter Plan of Treatment Upcoming Encounters Date Type Department Care Team (Late st Contact Info) Description 07/19/2025 9:00 AM EDT [facility] 5 [place] [phone] Prince Owens MD 5 [place] [address] R/S from 8-28 due to mother passing away 11/18/2025 2:00 PM EST Office Visit [facility] Dermatology 5 [place] [phone] Iván Guajardo MD 5 [place], [place] [phone] Return in about 1 year (around 11/18/2025). documented as of this encounter Procedures * Due to [place] [employer] law, this organization might not be sharing negative HIV tests. Procedure Name Priority Date/Time Associated Diagnosis Comments CBC INCLUDES DIFFERENTIAL AND PLATELET COUNT Routine 08/15/2023 11:45 AM EDT Acquired hemolytic anemia LACTATE DEHYDROGENASE (LDH), SERUM Routine 08/15/2023 11:45 AM EDT Acquired hemolytic anemia BILIRUBIN, TOTAL, SERUM (ADULT) Routine 08/15/2023 11:45 AM EDT Acquired hemolytic anemia documented in this encounter Results * Due to [place] [employer] law, this organization might not be sharing negative HIV tests. * (ABNORMAL) CBC INCLUDES DIFFERENTIAL AND PLATELET COUNT (08/15/2023 11:45 AM EDT) WBC 8.8 3.8 - 10.8 Thousand/u L [facility] RBC 3.82(L) 4.20 - 5.80 Million/uL [facility] Hemoglobin 12.7(L) 13.2 - 17.1 g/dL [facility] Hematocrit 37.2(L) 38.5 - 50.0 % [facility] MCV 97.4 80.0 - 100.0 fL [facility] MCH 33.2(H) 27.0 - 33.0 pg [facility] MCHC 34.1 32.0 - 36.0 g/dL [facility] RDW 12.6 11.0 - 15.0 % [facility] PLT 231 140 - 400 Thousand/u L [facility] MPV 9.8 7.5 - 12.5 fL [facility] Neutrophils # 5139 1500 - 7800 cells/uL [facility] Lymphocytes # 2851 850 - 3900 cells/uL [facility] Monocytes # 660 200 - 950 cells/uL [facility] Eosinophils # 123 15 - 500 cells/uL [facility] Basophils # 26 0 - 200 cells/uL [facility] Neutrophils % 58.4 % [facility] Lymphocytes % 32.4 % [facility] Monocytes % 7.5 % [facility] Eosinophils % 1.4 % [facility] Basophils % 0.3 % [facility] 08/15/2023 11:4 5 AM EDT 08/15/2023 7:45 PM EDT Narrative Resulting Agency Comment [id number] Prince Owens MD LAB SAME DAY RESULT Final Result Performing Organization Address City/[facility]/ZIP Co de Phone Number [facility] [address] [place] [address] * LACTATE DEHYDROGENASE (LDH), SERUM (08/15/2023 11:45 AM EDT) Lactate dehydrogenase 161 120 - 250 U/L [facility] 08/15/2023 11:4 5 AM EDT 08/15/2023 7:45 PM EDT Narrative Resulting Agency Comment [id number] us Prince Owens MD LABORATORY Final Resu lt Performing Organization Address [facility] Co de Phone Number [facility] [address] [place] [address] * (ABNORMAL) BILIRUBIN, TOTAL, SERUM (ADULT) (08/15/2023 11:45 AM EDT) Bilirubin Total 1.9(H) 0.2 - 1.2 mg/dL [facility] 08/15/2023 11:4 5 AM EDT 08/15/2023 7:45 PM EDT Narrative Resulting Agency Comment [id number] us Prince Owens MD LAB SAME DAY RESULT Final Result [facility] [address] [place] [address] documented in this encounter Visit Diagnoses Diagnosis Acquired hemolytic anemia (HCC) Acquired hemolytic anemia, unspecified documented in this encounter Care Teams Presser And Shaper Knitted Goods Relationship Specialty Start Date End Date Manoj Agudelo I [address] [address] [place] [phone] PCP - General Family Medicine 02/05/18 Prince Owens MD [address] [place] [address] Primary Hem Onc Provider Hematology/Oncology 04/18/25 documented as of this encounter
--- OUTSIDE RECORDS SUMMARY | 2025-07-08 14:30 | XMS_ITS | Encounter Summary ---
Author Organization [facility] Address [address] [place] [address] Care Team Providers Care Manager Qa Name Role Phone Manoj Agudelo I Primary Care Provider [phone]- [phone] Prince Owens MD Unavailable [phone] Encounter Details Date Type Department Care Team (Late Contact Info) Description 05/05/2018 Orders Only [facility] Hematology/Oncology [address] [phone] Prince Owens MD [address] [place] [address] Social History Tobacco Use Types Packs/Day Years Used Date Smoking Tobacco: Never Assessed Sex and Gender Information Value Date Recorded Sex Assigned at Not on file Legal Sex Male 10:51 PM EDT Gender Identity Not on file Sexual Orientation Not on file documented as of this encounter Plan of Treatment Upcoming Encounters Date Type Department Care Team (Late Contact Info) Description 07/19/2025 9:00 AM EDT Office Visit [facility] Hematology/Oncology [address] [place] [phone] Prince Owens MD [address] [place] [phone] R/S from 8-28 due to mother passing away 11/18/2025 2:00 PM EST Office Visit [facility] Dermatology [address] [place] [phone] Iván Guajardo MD 5 [place], [place] [phone] Return in about 1 year (around 11/18/2025). documented as of this encounter Procedures * Due to [facility] law, this organization might not be sharing negative HIV tests. Procedure Name Priority Date/Time Associated Diagnosis Comments CBC INCLUDES DIFFERENTIAL AND PLATELET COUNT Routine 05/05/2018 3:24 PM EDT Acquired hemolytic anemia documented in this encounter Results * Due to [facility] law, this organization might not be sharing negative HIV tests. * (ABNORMAL) CBC INCLUDES DIFFERENTIAL AND PLATELET COUNT (05/05/2018 3:24 PM EDT) WBC 4.6 3.8 - 10.8 K/uL [facility] Neutrophils # 1.9 1.5 - 7.8 K/uL [facility] Immature Granulocytes # 0.01 0.00 - 0.07 K/uL [facility] Comment:Cells included in IM M GRANS # : Metamyelocytes, Myelocytes and Promyelocytes. Lymphocytes # 2.2 0.9 - 3.9 K/uL [facility] Monocytes # 0.4 0.2 - 1.0 K/uL [facility] Eosinophils # 0.1 0.0 - 0.5 K/uL [facility] Basophils # 0.0 0.0 - 0.2 K/uL [facility] Neutrophils % 40.8 % [facility] Immature Granulocytes % 0.20 % [facility] Comment:Cells included in IM M GRANS % : Metamyelocytes, Myelocytes and Promyelocytes. Lymphocytes % 48.1 % [facility] Monocytes % 7.7 % [facility] Eosinophils % 2.8 % [facility] Basophils % 0.4 % [facility] RBC 2.73(L) 4.20 - 5.80 M/uL [facility] Hemoglobin 9.2(L) 13.2 - 17.1 g/dL [facility] Hematocrit 29.5(L) 38.5 - 50.0 % [facility] MCV 108.1(H) 80.0 - 100.0 fl [facility] MCH 33.7(H) 27.0 - 33.0 pg [facility] MCHC 31.2(L) 32.0 - 36.0 g/dL [facility] RDW 14.9 11.0 - 15.0 % [facility] PLT 226 140 - 400 K/uL [facility] 05/05/2018 3:24 PM EDT 05/05/2018 3:24 PM EDT Narrative [facility] - 05/05/2018 3:39 PM EDT non fasting Patient's primary care provider is: N/A Testing performed at: [facility], [address] [place] [address], [address], Pole Lift Operator: Carolee Mercedes, Ph.D us Prince Owens MD LAB SAME DAY RESULT Final Result [address] [address] DIRECTOR Carolee Mercedes, Ph.D documented in this encounter Visit Diagnoses Diagnosis Acquired hemolytic anemia (HCC) Acquired hemolytic anemia, unspecified documented in this encounter Care Teams Manager Qa Relationship Specialty Start Date End Date Manoj Agudelo I [address] [phone] PCP - General Family Medicine 02/05/18 Prince Owens MD [address] [place] [address] Primary Hem Onc Provider Hematology/Oncology 04/18/25 documented as of this encounter
--- OUTSIDE RECORDS SUMMARY | 2025-07-08 14:30 | XMS_ITS | Encounter Summary ---
Author Organization [facility] Address [address] [place] [address] Care Team Providers Care Staff Midwife Name Role Phone Manoj Agudelo I Primary Care Provider [phone]- [phone] Prince Owens MD Unavailable [phone] Encounter Details Date Type Department Care Team (Late st Contact Info) Description 08/11/2023 Orders Only [facility] Hematology/Oncology 5 [place] [phone] La Nena Welch, RN 5 [place] [address] Social History Tobacco Use Types Packs/Day Years [...] Encounter Note - Prince Owens MD - 08/11/2023 2:16 PM EDT Notified patient of results via TELOSt message. documented in this encounter Plan of Treatment Upcoming Encounters Date Type Department Care Team (Late st Contact Info) Description 07/19/2025 9:00 AM EDT [facility]On[facility] 5 [place] [phone] Prince Owens MD 5 [place] [address] R/S from 8-28 due to mother passing away 11/18/2025 2:00 PM EST Office Visit [facility] Dermatology [address] [place] [phone] Iván Guajardo MD [address] [place], [place] [phone] Return in about 1 year (around 11/18/2025). documented as of this encounter Procedures * Due to [place] [employer] law, this organization might not be sharing negative HIV tests. Procedure Name Priority Date/Time Associated Diagnosis Comments CBC INCLUDES DIFFERENTIAL AND PLATELET COUNT Routine 08/11/2023 2:16 PM EDT Acquired hemolytic anemia LACTATE DEHYDROGENASE (LDH), SERUM Routine 08/11/2023 2:16 PM EDT Acquired hemolytic anemia BILIRUBIN, TOTAL, SERUM (ADULT) Routine 08/11/2023 2:16 PM EDT Acquired hemolytic anemia documented in this encounter Results * Due to [place] [employer] law, this organization might not be sharing negative HIV tests. * (ABNORMAL) CBC INCLUDES DIFFERENTIAL AND PLATELET COUNT (08/11/2023 2:16 PM EDT) WBC 11.4(H) 3.8 - 10.8 Thousand/u L [facility] RBC 4.11(L) 4.20 - 5.80 Million/uL [facility] Hemoglobin 13.6 13.2 - 17.1 g/dL [facility] Hematocrit 40.1 38.5 - 50.0 % [facility] MCV 97.6 80.0 - 100.0 fL [facility] MCH 33.1(H) 27.0 - 33.0 pg [facility] MCHC 33.9 32.0 - 36.0 g/dL [facility] RDW 12.4 11.0 - 15.0 % [facility] PLT 284 140 - 400 Thousand/u L [facility] MPV 9.9 7.5 - 12.5 fL [facility] Neutrophils # 9485(H) 1500 - 7800 cells/uL [facility] Lymphocytes # 1528 850 - 3900 cells/uL [facility] Monocytes # 308 200 - 950 cells/uL [facility] Eosinophils # 46 15 - 500 cells/uL [facility] Basophils # 34 0 - 200 cells/uL [facility] Neutrophils % 83.2 % [facility] Lymphocytes % 13.4 % [facility] Monocytes % 2.7 % [facility] Eosinophils % 0.4 % [facility] Basophils % 0.3 % [facility] 08/11/2023 2:16 PM EDT 08/11/2023 10:18 PM EDT Narrative Resulting Agency Comment [id number] us Prince Owens MD LAB SAME DAY RESULT Final Result Performing Organization Address City/[facility] Co de Phone Number [facility] [address] [place] [address] * LACTATE DEHYDROGENASE (LDH), SERUM (08/11/2023 2:16 PM EDT) Lactate dehydrogenase 178 120 - 250 U/L [facility] 08/11/2023 2:16 PM EDT 08/11/2023 10:18 PM EDT Narrative Resulting Agency Comment [id number] us Prince Owens MD LABORATORY Final Resu lt Performing Organization Address City/[facility] Co de Phone Number [facility] [address] [place] [address] * (ABNORMAL) BILIRUBIN, TOTAL, SERUM (ADULT) (08/11/2023 2:16 PM EDT) Bilirubin Total 2.7(H) 0.2 - 1.2 mg/dL [facility] 08/11/2023 2:16 PM EDT 08/11/2023 10:18 PM EDT Narrative Resulting Agency Comment [id number] us Prince Owens MD LAB SAME DAY RESULT Final Result [facility] [address] [place] [address] documented in this encounter Visit Diagnoses Diagnosis Acquired hemolytic anemia (HCC) Acquired hemolytic anemia, unspecified documented in this encounter Care Teams Staff Midwife Relationship Specialty Start Date End Date Manoj Agudelo I [address] [address] [place] [phone] PCP - General Family Medicine 02/05/18 Prince Owens MD [address] [place] [address] Primary Hem Onc Provider Hematology/Oncology 04/18/25 documented as of this encounter
--- OUTSIDE RECORDS SUMMARY | 2025-07-08 14:30 | XMS_ITS | Encounter Summary ---
Author Organization [facility] Address [address] [place] [address] Care Team Providers Care Sternman Name Role Phone Manoj Agudelo I Primary Care Provider [phone] Prince Owens MD Unavailable Encounter Details Date Type Department Care Team (Late Contact Info) Description 01/17/2025 Orders Only [facility] Hematology/Oncology [address] [place] [phone] La Nena Welch, RN [address] [place] [address] Social History Tobacco Use Types Packs/Day Years [...] EDT Office Visit [facility] Hematology/Oncology [address] [place] [phone] Prince Owens MD [address] [place] [phone] R/S from 8-28 due to mother passing away 11/18/2025 2:00 PM EST Office Visit [facility] Dermatology [address] [place] [phone] Iván Guajardo MD [address] [place] [address] Return in about 1 year (around 11/18/2025). documented as of this encounter Procedures * Due to [place] [employer] law, this organization might not be sharing negative HIV tests. Procedure Name Priority Date/Time Associated Diagnosis Comments CBC INCLUDES DIFFERENTIAL AND PLATELET COUNT Routine 01/17/2025 12:27 PM EDT Acquired hemolytic anemia documented in this encounter Results * Due to [facility] law, this organization might not be sharing negative HIV tests. * (ABNORMAL) CBC INCLUDES DIFFERENTIAL AND PLATELET COUNT (01/17/2025 12:27 PM EDT) WBC 7.2 3.8 - 10.8 Thousand/ uL [facility] RBC 3.24(L) 4.20 - 5.80 Million/u L [facility] Hemoglobin 10.9(L) 13.2 - 17.1 g/dL [facility] Hematocrit [...] - 12.5 fL [facility] Neutrophils # 5062 1500 - 7800 cells/uL [facility] Lymphocytes # 1555 850 - 3900 cells/uL [facility] Monocytes # 432 200 - 950 cells/uL [facility] Eosinophils # 108 15 - 500 cells/uL [facility] Basophils # 43 0 - 200 cells/uL [facility] Neutrophils % 70.3 % [facility] Lymphocytes % 21.6 % [facility] Monocytes % 6.0 % [facility] Eosinophils % 1.5 % [facility] Basophils % 0.6 % [facility] 01/17/2025 12:2 7 PM EDT 01/18/2025 12:51 AM EDT Narrative Resulting Agency Comment [id number] us Prince Owens MD LAB SAME DAY RESULT Final Result [facility] [address] [place] [address] documented in this encounter Visit Diagnoses Diagnosis Acquired hemolytic anemia (HCC) Acquired hemolytic anemia, unspecified documented in this encounter Care Teams Sternman Relationship Specialty Start Date End Date Manoj Agudelo I [address] [place] [phone] PCP - General Family Medicine 02/05/18 Prince Owens MD [address] [place] [address] Primary Hem Onc Provider Hematology/Oncology 04/18/25 documented as of this encounter
--- OUTSIDE RECORDS SUMMARY | 2025-07-08 14:30 | XMS_ITS | Encounter Summary ---
Author Organization [facility] Address [address] [place] [address] Care Team Providers Care Police Pilot Name Role Phone Manoj Agudelo I Primary Care Provider [phone] Prince Owens MD Unavailable [phone] Encounter Details Date Type Department Care Team (Late st Contact Info) Description 08/13/2023 Orders Only [facility] Hematology/Oncology [address] [place] [address] La Nena Welch, RN [address] [place] [address] Social History Tobacco Use Types Packs/Day Years [...] Encounter Note - Prince Owens MD - 08/13/2023 2:17 PM EDT Notified patient of results via [employer] message. documented in this encounter Plan of Treatment Upcoming Encounters Date Type Department Care Team (Late st Contact Info) Description 07/19/2025 9:00 AM EDT Office Visit [facility] Hematology/Oncology [address] [place] [phone] Prince Owens MD [address] [place] [address] R/S from 8-28 due to mother passing away 11/18/2025 2:00 PM EST Office Visit [facility] Dermatology [address] [place] [phone] Iván Guajardo MD [address] [place], [place] [phone] Return in about 1 year (around 11/18/2025). documented as of this encounter Procedures * Due to [place] [employer] law, this organization might not be sharing negative HIV tests. Procedure Name Priority Date/Time Associated Diagnosis Comments CBC INCLUDES DIFFERENTIAL AND PLATELET COUNT Routine 08/13/2023 2:25 PM EDT Acquired hemolytic anemia LACTATE DEHYDROGENASE (LDH), SERUM Routine 08/13/2023 2:25 PM EDT Acquired hemolytic anemia BILIRUBIN, TOTAL, SERUM (ADULT) Routine 08/13/2023 2:25 PM EDT Acquired hemolytic anemia documented in this encounter Results * Due to [place] [employer] law, this organization might not be sharing negative HIV tests. * (ABNORMAL) CBC INCLUDES DIFFERENTIAL AND PLATELET COUNT (08/13/2023 2:25 PM EDT) WBC 11.1(H) 3.8 - 10.8 Thousand/u L [facility] RBC 4.01(L) 4.20 - 5.80 Million/uL [facility] Hemoglobin 13.2 13.2 - 17.1 g/dL [facility] Hematocrit 38.2(L) 38.5 - 50.0 % [facility] MCV 95.3 80.0 - 100.0 fL [facility] MCH 32.9 27.0 - 33.0 pg [facility] MCHC 34.6 32.0 - 36.0 g/dL [facility] RDW 12.7 11.0 - 15.0 % [facility] PLT 248 140 - 400 Thousand/u L [facility] MPV 9.8 7.5 - 12.5 fL [facility] Neutrophils # 8170(H) 1500 - 7800 cells/uL [facility] Lymphocytes # 2187 850 - 3900 cells/uL [facility] Monocytes # 599 200 - 950 cells/uL [facility] Eosinophils # 100 15 - 500 cells/uL [facility] Basophils # 44 0 - 200 cells/uL [facility] Neutrophils % 73.6 % [facility] Lymphocytes % 19.7 % [facility] Monocytes % 5.4 % [facility] Eosinophils % 0.9 % [facility] Basophils % 0.4 % [facility] 08/13/2023 2:25 PM EDT 08/13/2023 8:25 PM EDT Narrative Resulting Agency Comment [id number] us Prince Owens MD LAB SAME DAY RESULT Final Result Performing Organization Address City/[facility] Co de Phone Number [facility] [address] [place] [address] * LACTATE DEHYDROGENASE (LDH), SERUM (08/13/2023 2:25 PM EDT) Lactate dehydrogenase 196 120 - 250 U/L [facility] 08/13/2023 2:25 PM EDT 08/13/2023 8:25 PM EDT Narrative Resulting Agency Comment [id number] us Prince Owens MD LABORATORY Final Resu lt Performing Organization Address City/[facility] Co de Phone Number [facility] [address] [place] [address] * (ABNORMAL) BILIRUBIN, TOTAL, SERUM (ADULT) (08/13/2023 2:25 PM EDT) Bilirubin Total 2.8(H) 0.2 - 1.2 mg/dL [facility] 08/13/2023 2:25 PM EDT 08/13/2023 8:25 PM EDT Narrative Resulting Agency Comment [id number] us Prince Owens MD LAB SAME DAY RESULT Final Result [facility] [address] [place] [address] documented in this encounter Visit Diagnoses Diagnosis Acquired hemolytic anemia (HCC) Acquired hemolytic anemia, unspecified documented in this encounter Care Teams Police Pilot Relationship Specialty Start Date End Date Manoj Agudelo I [address] [address] [place] [phone] PCP - General Family Medicine 02/05/18 Prince Owens MD [address] [place] [address] Primary Hem Onc Provider Hematology/Oncology 04/18/25 documented as of this encounter
--- OUTSIDE RECORDS SUMMARY | 2025-07-08 14:30 | XMS_ITS | Encounter Summary ---
Author Organization [facility] Address [address] [place] [address] Care Team Providers Care Line Tender Name Role Phone RachellesherryJohncorywalter Carrion Primary Care Provider [phone] Prince Owens MD Unavailable [phone] Encounter Details Date Type Department Care Team (Late st Contact Info) Description 12/13/2024 Orders Only [facility] Hematology/Oncology [address] [place] [address] Prince Owens MD [address] [place] [address] Social History Tobacco Use Types Packs/Day Years [...] Encounter Note - Prince Owens MD - 12/13/2024 2:12 PM EST Results normal/stable. I have notified the patient via [employer]. documented in this encounter Plan of Treatment Upcoming Encounters Date Type Department Care Team (Late st Contact Info) Description 07/19/2025 9:00 AM EDT Office Visit [facility] Hematology/Oncology [address] [place] [address] Prince Owens MD [address] [place] [address] R/S from 8- due to mother passing away 11/18/2025 2:00 PM EST Office Visit [facility] Dermatology 5 [place] [phone] Iván Guajardo MD [address] [place], [place] [phone] Return in about 1 year (around 11/18/2025). documented as of this encounter Procedures * Due to [place] [employer] law, this organization might not be sharing negative HIV tests. Procedure Name Priority Date/Time Associated Diagnosis Comments CBC INCLUDES DIFFERENTIAL AND PLATELET COUNT Routine 12/13/2024 2:12 PM EST Acquired hemolytic anemia LACTATE DEHYDROGENASE (LDH), SERUM Routine 12/13/2024 2:12 PM EST Acquired hemolytic anemia COMPREHENSIVE METABOLIC PANEL WITH GFR Routine 12/13/2024 2:12 PM EST Acquired hemolytic anemia documented in this encounter Results * Due to [place] [employer] law, this organization might not be sharing negative HIV tests. * (ABNORMAL) CBC INCLUDES DIFFERENTIAL AND PLATELET COUNT (12/13/2024 2:12 PM EST) WBC 5.6 3.8 - 10.8 Thousand/ uL [facility] RBC 3.18(L) 4.20 - 5.80 Million/u L [facility] Hemoglobin 11.0(L) 13.2 - 17.1 g/dL [facility] Hematocrit 33.5(L) 38.5 - 50.0 % [facility] MCV 105.3(H) 80.0 - 100.0 fL [facility] MCH 34.6(H) 27.0 - 33.0 pg [facility] MCHC 32.8 32.0 - 36.0 g/dL [facility] Comment: For adults, a slight decrease in the calculated MCHC value (in the range of 30 to 32 g/dL) is most likely not clinically significant; however, it should be interpreted with caution in correlation with other red cell parameters and the patient's clinical condition. RDW 13.4 11.0 - 15.0 % [facility] PLT 242 140 - 400 Thousand/ uL [facility] MPV 10.2 7.5 - 12.5 fL [facility] Neutrophils # 3366 1500 - 7800 cells/uL [facility] Lymphocytes # 1669 850 - 3900 cells/uL [facility] Monocytes # 409 200 - 950 cells/uL [facility] Eosinophils # 129 15 - 500 cells/uL [facility] Basophils # 28 0 - 200 cells/uL [facility] Neutrophils % 60.1 % [facility] Lymphocytes % 29.8 % [facility] Monocytes % 7.3 % [facility] Eosinophils % 2.3 % [facility] Basophils % 0.5 % [facility] 12/13/2024 2:12 PM EST 12/14/2024 3:25 AM EST Narrative Resulting Agency Comment [id number] us Prince Owens MD LAB SAME DAY RESULT Final Result Performing Organization Address City/State/[facility] Co de Phone Number [facility] [address] [place] [address] * (ABNORMAL) COMPREHENSIVE METABOLIC PANEL WITH GFR (12/13/2024 2:12 PM EST) Glucose 258(H) 65 - 99 mg/dL [facility] Comment: Fasting reference interval For someone without known diabetes, a glucose value >125 mg/dL indicates that they may have diabetes and this should be confirmed with a follow-up test. Urea Nitrogen Blood (BUN) 17 7 - 25 mg/dL [facility] Creatinine 0.96 0.70 - 1.35 mg/dL [facility] EGFR 88 > OR = 60 mL/min/1. 73m2 [facility] BUN/Creatinine Ratio SEE NOTE: 6 - 22 (calc) [facility] Comment: Not Reported: BUN and Creatinine are within reference range. Sodium 141 135 - 146 mmol/L [facility] Potassium 4.5 3.5 - 5.3 mmol/L [facility] Chloride 104 98 - 110 mmol/L [facility] Carbon dioxide 29 20 - 32 mmol/L [facility] Calcium 9.7 8.6 - 10.3 mg/dL [facility] Protein Total (Serum) 6.7 6.1 - 8.1 g/dL [facility] Albumin 4.9 3.6 - 5.1 g/dL [facility] Globulin 1.8(L) 1.9 - 3.7 g/dL (calc) [facility] Albumin/Globuli n 2.7(H) 1.0 - 2.5 (calc) [facility] Bilirubin Total 3.8(H) 0.2 - 1.2 mg/dL [facility] Alkaline phosphatase 58 35 - 144 U/L [facility] AST (SGOT) 18 10 - 35 U/L [facility] ALT (SGPT) 25 9 - 46 U/L [facility] 12/13/2024 2:12 PM EST 12/14/2024 3:25 AM EST Narrative [facility] - 12/14/2024 6:35 AM EST Please note that this estimated [...] needs for GFR calculation. Resulting Agency Comment [id number] Prince Owens MD LABORATORY Final Resu lt Performing Organization Address City/[facility] Co de Phone Number [facility] [address] [place] [address] * LACTATE DEHYDROGENASE (LDH), SERUM (12/13/2024 2:12 PM EST) Lactate dehydrogenase 188 120 - 250 U/L [facility] 12/13/2024 2:12 PM EST 12/14/2024 3:25 AM EST Narrative Resulting Agency Comment [id number] us Prince Owens MD LABORATORY Final Resu lt Performing Organization Address City/[facility]/ZIP Co de Phone Number [facility] [address] [place] [address] documented in this encounter Visit Diagnoses Diagnosis Acquired hemolytic anemia (HCC) Acquired hemolytic anemia, unspecified documented in this encounter Care Teams Line Tender Relationship Specialty Start Date End Date Manoj Agudelo I [address] [phone] PCP - General Family Medicine 02/05/18 Prince Owens MD [address] [place] [address] Primary Hem Onc Provider Hematology/Oncology 04/18/25 documented as of this encounter
--- OUTSIDE RECORDS SUMMARY | 2025-07-08 14:30 | XMS_ITS | Encounter Summary ---
Author Organization [facility] Address [address] [place] [address] Care Team Providers Care Top Dyeing Machine Tender Name Role Phone SantinochristianeManoj I Primary Care Provider [phone] Prince Owens MD Unavailable [phone] Encounter Details Date Type Department Care Team (Late Contact Info) Description 08/08/2023 Orders Only [facility] Hematology/Oncology [address] [place] [phone] La Nena Welch, RN [address] [place] [address] Social History Tobacco Use Types Packs/Day Years [...] EDT Office Visit [facility] Hematology/Oncology [address] [place] [phone] Prince Owens MD [address] [place] [address] R/S from 8-28 due to mother passing away 11/18/2025 2:00 PM EST Office Visit [facility] Dermatology [address] [place] [phone] Iván Guajardo MD [address] [place] [address] Return in about 1 year (around 11/18/2025). documented as of this encounter Procedures * Due to [place] [employer] law, this organization might not be sharing negative HIV tests. Procedure Name Priority Date/Time Associated Diagnosis Comments CBC INCLUDES DIFFERENTIAL AND PLATELET COUNT Routine 08/08/2023 2:52 PM EDT Acquired hemolytic anemia LACTATE DEHYDROGENASE (LDH), SERUM Routine 08/08/2023 2:52 PM EDT Acquired hemolytic anemia BILIRUBIN, TOTAL, SERUM (ADULT) Routine 08/08/2023 2:52 PM EDT Acquired hemolytic anemia documented in this encounter Results * Due to [place] [employer] law, this organization might not be sharing negative HIV tests. * (ABNORMAL) CBC INCLUDES DIFFERENTIAL AND PLATELET COUNT (08/08/2023 2:52 PM EDT) WBC 11.2(H) 3.8 - 10.8 Thousand/u L [facility] RBC 4.04(L) 4.20 - 5.80 Million/uL [facility] Hemoglobin 13.6 13.2 - 17.1 g/dL [facility] Hematocrit 39.9 38.5 - 50.0 % [facility] MCV 98.8 80.0 - 100.0 fL [facility] MCH 33.7(H) 27.0 - 33.0 pg [facility] MCHC 34.1 32.0 - 36.0 g/dL [facility] RDW 12.7 11.0 - 15.0 % [facility] PLT 286 140 - 400 Thousand/u L [facility] MPV 9.9 7.5 - 12.5 fL [facility] Neutrophils # 9856(H) 1500 - 7800 cells/uL [facility] Lymphocytes # 1030 850 - 3900 cells/uL [facility] Monocytes # 246 200 - 950 cells/uL [facility] Eosinophils # 45 15 - 500 cells/uL [facility] Basophils # 22 0 - 200 cells/uL [facility] Neutrophils % 88 % [facility] Lymphocytes % 9.2 % [facility] Monocytes % 2.2 % [facility] Eosinophils % 0.4 % [facility] Basophils % 0.2 % [facility] 08/08/2023 2:52 PM EDT 08/09/2023 12:05 AM EDT Narrative Resulting Agency Comment [id number] us Prince Owens MD LAB SAME DAY RESULT Final Result Performing Organization Address [facility] Co de Phone Number [facility] [address] [place] [address] * LACTATE DEHYDROGENASE (LDH), SERUM (08/08/2023 2:52 PM EDT) Lactate dehydrogenase 177 120 - 250 U/L [facility] 08/08/2023 2:52 PM EDT 08/09/2023 12:05 AM EDT Narrative Resulting Agency Comment [id number] us Prince Owens MD LABORATORY Final Resu lt Performing Organization Address [facility] de Phone Number [facility] [address] [place] [address] * (ABNORMAL) BILIRUBIN, TOTAL, SERUM (ADULT) (08/08/2023 2:52 PM EDT) Bilirubin Total 2.8(H) 0.2 - 1.2 mg/dL [facility] 08/08/2023 2:52 PM EDT 08/09/2023 12:05 AM EDT Narrative Resulting Agency Comment [id number] us Prince Owens MD LAB SAME DAY RESULT Final Result Performing Organization Address [facility] de Phone Number [facility] [address] [place] [address] documented in this encounter Visit Diagnoses Diagnosis Acquired hemolytic anemia (HCC) Acquired hemolytic anemia, unspecified documented in this encounter Care Teams Top Dyeing Machine Tender Relationship Specialty Start Date End Date Manoj Agudelo I [address] [address] [place] [address] PCP - General Family Medicine 02/05/18 Prince Owens MD [address] [place] [address] Primary Hem Onc Provider Hematology/Oncology 04/18/25 documented as of this encounter
--- OUTSIDE RECORDS SUMMARY | 2025-07-08 14:30 | XMS_ITS | Clinical Summary ---
Author Organization [facility] Address [address] [facility] [place] [address] Care Team Providers Care Silo Man Name Role Phone Unavailable Primary Care Provider Unavailabl e Social History Tobacco Use Types Packs/Day Years Used Date Smoking Tobacco: Never Assessed Sex and Gender Information Value Date Recorded Sex Assigned at Not on file Legal Sex Male 8:57 PM EDT Gender Identity Not on file Sexual Orientation Not on file Plan of Treatment Health Maintenance Due Date Last Done Comments Colorectal Cancer: COLONOSCO PY Screening every 10 yrs (or Modifier) 1960 Depression: Screening Annual ly using PHQ-2/9 in Adults 18 yrs or above (or HM Modifier)([facility]) 1978 Hepatitis C Virus Infection in Adolescents and Adults: Screening (or Modifier) ([facility]) 1978 SDOH Screening Reminder: Mallory james for all adults ([facility]) 1978 Tobacco Smoking Cessation: i n Adults excluding Women: Behavioral and Pharmacotherapy Interventions ([facility]) 1978 Colorectal Cancer Screening 45 -75 Yrs (or HM Modifier) 2005 Colorectal Cancer: FLEXIBLE SIGMOIDOSCOPY Screening every 5 yrs 2005 Colorectal Cancer: Fecal Imm unochemical Test (FIT) Annually [facility] 2005 Colorectal Cancer: High-sens itivity gFOBT Screening Annually [facility] 2005 Colorectal Cancer: Stool Col oguard Screening every 3 yrs 2005 Colorectal Cancer:CT Colonog marko Screening every 5 yrs 2005 Pneumococcal Vaccination Scr eening: Patients 50+ yrs of age ([facility]) (1 of 1 - PCV) 2010 Zoster/Shingles Vaccine Seri es Screening: Adults aged 18+ yrs (or HM Modifiers)([facility]) (1 of 2) 2010 Flu Vaccination: Ages 65+: Y early High Dose Recommended (or Modifier)([facility]) 2025 DTaP/Tdap/Td Vaccines ([facility]) (2 - Td or Tdap) 1 11/14/2020 RSV Vaccines (1 - 1-dose 75+ series) 2035 [employer] Not on file
--- OUTSIDE RECORDS SUMMARY | 2025-07-08 14:30 | XMS_ITS | Encounter Summary ---
Author Organization [facility] Address [address] [place] [address] Care Team Providers Care Transaction Manager Name Role Phone Manoj Agudelo I Primary Care Provider [phone] Prince Owens MD Unavailable [phone] Encounter Details Date Type Department Care Team ([facility] Contact Info) Description 10/17/2023 Orders Only [facility] Hematology/Oncology [address] [place] [phone] Prince Owens MD [address] [place] [phone] Social History Tobacco Use Types Packs/Day Years [...] Upcoming Encounters Date Type Department Care Team ([facility] Contact Info) Description 07/19/2025 9:00 AM EDT Office Visit [facility] Hematology/Oncology [address] [place] [address] [phone] Prince Owens MD [address] [place] [address] R/S from 8-28 due to mother passing away 11/18/2025 2:00 PM EST Office Visit [facility] Dermatology [address] [place] [phone] Iván Guajardo MD [address] [place] [address] Return in about 1 year (around 11/18/2025). documented as of this encounter Procedures * Due to [facility] law, this organization might not be sharing negative HIV tests. Procedure Name Priority Date/Time Associated Diagnosis Comments CBC INCLUDES DIFFERENTIAL AND PLATELET COUNT Routine 10/17/2023 12:25 PM EST Malignant neoplasm of urinary bladder, unspecified site LACTATE DEHYDROGENASE (LDH), SERUM Routine 10/17/2023 12:25 PM EST Malignant neoplasm of urinary bladder, unspecified site COMPREHENSIVE METABOLIC PANEL WITH GFR Routine 10/17/2023 12:25 PM EST Malignant neoplasm of urinary bladder, unspecified site documented in this encounter Results * Due to [place] [email or web address] law, this organization might not be sharing negative HIV tests. * (ABNORMAL) CBC INCLUDES DIFFERENTIAL AND PLATELET COUNT (10/17/2023 12:25 PM EST) WBC 7.6 3.8 - 10.8 Thousand/u L [facility] RBC 3.16(L) 4.20 - 5.80 Million/uL [facility] Hemoglobin 10.4(L) 13.2 - 17.1 g/dL [facility] Hematocrit 31.0(L) 38.5 - 50.0 % [facility] MCV 98.1 80.0 - 100.0 fL [facility] MCH 32.9 27.0 - 33.0 pg [facility] MCHC 33.5 32.0 - 36.0 g/dL [facility] RDW 14.0 11.0 - 15.0 % [facility] PLT 226 140 - 400 Thousand/u L [facility] MPV 10.1 7.5 - 12.5 fL [facility] Neutrophils # 5730 1500 - 7800 cells/uL [facility] Lymphocytes # 1406 850 - 3900 cells/uL [facility] Monocytes # 312 200 - 950 cells/uL [facility] Eosinophils # 114 15 - 500 cells/uL [facility] Basophils # 38 0 - 200 cells/uL [facility] Neutrophils % 75.4 % [facility] Lymphocytes % 18.5 % [facility] Monocytes % 4.1 % [facility] Eosinophils % 1.5 % [facility] Basophils % 0.5 % [facility] 10/17/2023 12:2 5 PM EST 10/17/2023 9:13 PM EST Narrative Resulting Agency Comment [id number] us Prince Owens MD LAB SAME DAY RESULT Final Result [facility] [address] [place] [address] * (ABNORMAL) COMPREHENSIVE METABOLIC PANEL WITH GFR (10/17/2023 12:25 PM EST) Glucose 186(H) 65 - 99 mg/dL [facility] Comment: Fasting reference interval For someone without known diabetes, a glucose value >125 mg/dL indicates that they may have diabetes and this should be confirmed with a follow-up test. Urea Nitrogen Blood (BUN) 20 7 - 25 mg/dL [facility] Creatinine 0.84 0.70 - 1.35 mg/dL [facility] EGFR 98 > OR = 60 mL/min/1. 73m2 [facility] BUN/Creatinine Ratio SEE NOTE: 6 - 22 (calc) [facility] Comment: Not Reported: BUN and Creatinine are within reference range. Sodium 141 135 - 146 mmol/L [facility] Potassium 4.3 3.5 - 5.3 mmol/L [facility] Chloride 105 98 - 110 mmol/L [facility] Carbon dioxide 27 20 - 32 mmol/L [facility] Calcium 9.2 8.6 - 10.3 mg/dL [facility] Protein Total (Serum) 6.8 6.1 - 8.1 g/dL [facility] Albumin 4.9 3.6 - 5.1 g/dL [facility] Globulin 1.9 1.9 - 3.7 g/dL (calc) [facility] Albumin/Globuli n 2.6(H) 1.0 - 2.5 (calc) [facility] Bilirubin Total 3.4(H) 0.2 - 1.2 mg/dL [facility] Alkaline phosphatase 56 35 - 144 U/L [facility] AST (SGOT) 27 10 - 35 U/L [facility] ALT (SGPT) 39 9 - 46 U/L [facility] 10/17/2023 12:2 5 PM EST 10/17/2023 9:13 PM EST Narrative [facility] - 10/18/2023 12:53 AM EST Please note that this estimated [...] needs for GFR calculation. Resulting Agency Comment [id number] Prince Owens MD LABORATORY Final Resu lt Performing Organization Address [facility] Co de Phone Number [facility] [address] [place] [address] * LACTATE DEHYDROGENASE (LDH), SERUM (10/17/2023 12:25 PM EST) Lactate dehydrogenase 170 120 - 250 U/L [facility] 10/17/2023 12:2 5 PM EST 10/17/2023 9:13 PM EST Narrative Resulting Agency Comment [id number] Prince Owens MD LABORATORY Final Resu lt Performing Organization Address City/[facility] Co de Phone Number [facility] [address] [place] [address] documented in this encounter Visit Diagnoses Diagnosis Malignant neoplasm of urinary bladder, unspecified site (HCC) documented in this encounter Care Teams Transaction Manager Relationship Specialty Start Date End Date Manoj Agudelo I [address] [phone] PCP - General Family Medicine 02/05/18 Prince Owens MD [address] [place] [address] Primary Hem Onc Provider Hematology/Oncology 04/18/25 documented as of this encounter
--- OUTSIDE RECORDS SUMMARY | 2025-07-08 14:30 | XMS_ITS | Encounter Summary ---
Author Organization [facility] Address [address] [place] [address] Care Team Providers Care Manager Analysis Name Role Phone RachellesherryJohncorywalter Carrion Primary Care Provider [phone] Prince Owens MD Unavailable [phone] Encounter Details Date Type Department Care Team (Late st Contact Info) Description 11/24/2024 Orders Only [facility] Hematology/Oncology [address] [place] [address] Prince Owens MD [address] [place] [address] Social History Tobacco Use Types Packs/Day Years [...] Encounter Note - Prince Owens MD - 11/24/2024 12:01 PM EST Results normal/stable. I have notified the patient via [employer]. documented in this encounter Plan of Treatment Upcoming Encounters Date Type Department Care Team (Late st Contact Info) Description 07/19/2025 9:00 AM EDT Office Visit [facility] Hematology/Oncology [address] [place] [address] Prince Owens MD [address] [place] [address] R/S from 06-30 due to mother passing away 11/18/2025 2:00 PM EST Office Visit [facility] Dermatology [address] [place] [phone] Iván Guajardo MD [address] [place] [address] Return in about 1 year (around 11/18/2025). documented as of this encounter Procedures * Due to [place] [employer] law, this organization might not be sharing negative HIV tests. Procedure Name Priority Date/Time Associated Diagnosis Comments CBC INCLUDES DIFFERENTIAL AND PLATELET COUNT Routine 11/24/2024 12:02 PM EST Acquired hemolytic anemia LACTATE DEHYDROGENASE (LDH), SERUM Routine 11/24/2024 12:02 PM EST Acquired hemolytic anemia COMPREHENSIVE METABOLIC PANEL WITH GFR Routine 11/24/2024 12:02 PM EST Acquired hemolytic anemia documented in this encounter Results * Due to [place] [employer] law, this organization might not be sharing negative HIV tests. * LACTATE DEHYDROGENASE (LDH), SERUM (11/24/2024 12:02 PM EST) Lactate dehydrogenase 193 120 - 250 U/L [facility] 11/24/2024 12:0 2 PM EST 11/25/2024 2:05 AM EST Narrative Resulting Agency Comment [id number] Prince Owens MD LABORATORY Final Resu lt [facility] [address] [place] [address] * (ABNORMAL) COMPREHENSIVE METABOLIC PANEL WITH GFR (11/24/2024 12:02 PM EST) Glucose 116(H) 65 - 99 mg/dL [facility] Comment: Fasting reference interval For someone without known diabetes, a glucose value between 100 and 125 mg/dL is consistent with prediabetes and should be confirmed with a follow-up test. Urea Nitrogen Blood (BUN) 21 7 - 25 mg/dL [facility] Creatinine 0.91 0.70 - 1.35 mg/dL [facility] EGFR 94 > OR = 60 mL/min/1. 73m2 [facility] BUN/Creatinine Ratio SEE NOTE: 6 - 22 (calc) [facility] Comment: Not Reported: BUN and Creatinine are within reference range. Sodium 143 135 - 146 mmol/L [facility] Potassium 4.1 3.5 - 5.3 mmol/L [facility] Chloride [...] - 2.5 (calc) [facility] Bilirubin Total 3.9(H) 0.2 - 1.2 mg/dL [facility] Alkaline phosphatase 50 35 - 144 U/L [facility] AST (SGOT) 18 10 - 35 U/L [facility] ALT (SGPT) 24 9 - 46 U/L [facility] 11/24/2024 12:0 2 PM EST 11/25/2024 2:05 AM EST Narrative [facility] - 11/25/2024 7:30 AM EST Please note that this estimated [...] needs for GFR calculation. Resulting Agency Comment [id number] Prince Owens MD LABORATORY Final Resu lt Performing Organization Address City/[facility] Co de Phone Number [facility] [address] [place] [address] * (ABNORMAL) CBC INCLUDES DIFFERENTIAL AND PLATELET COUNT (11/24/2024 12:02 PM EST) WBC 6.8 3.8 - 10.8 Thousand/ uL [facility] RBC 3.30(L) 4.20 - 5.80 Million/u L [facility] Hemoglobin 11.3(L) 13.2 - 17.1 g/dL [facility] Hematocrit 34.0(L) 38.5 - 50.0 % [facility] MCV 103.0(H) 80.0 - 100.0 fL [facility] MCH 34.2(H) 27.0 - 33.0 pg [facility] MCHC 33.2 32.0 - 36.0 g/dL [facility] Comment: [...] - 12.5 fL [facility] Neutrophils # 4604 1500 - 7800 cells/uL [facility] Lymphocytes # 1564 850 - 3900 cells/uL [facility] Monocytes # 428 200 - 950 cells/uL [facility] Eosinophils # 143 15 - 500 cells/uL [facility] Basophils # 61 0 - 200 cells/uL [facility] Neutrophils % 67.7 % [facility] Lymphocytes % 23.0 % [facility] Monocytes % 6.3 % [facility] Eosinophils % 2.1 % [facility] Basophils % 0.9 % [facility] 11/24/2024 12:0 2 PM EST 11/25/2024 2:05 AM EST Narrative Resulting Agency Comment [id number] Prince Owens MD LAB SAME DAY RESULT Final Result Performing Organization Address City/[facility] Co de Phone Number [facility] [address] [place] [address] documented in this encounter Visit Diagnoses Diagnosis Acquired hemolytic anemia (HCC) Acquired hemolytic anemia, unspecified documented in this encounter Care Teams Manager Analysis Relationship Specialty Start Date End Date Manoj Agudelo I [address] [phone] PCP - General Family Medicine 02/05/18 Prince Owens MD [address] [place] [address] Primary Hem Onc Provider Hematology/Oncology 04/18/25 documented as of this encounter
--- OUTSIDE RECORDS SUMMARY | 2025-07-08 14:30 | XMS_ITS | Encounter Summary ---
Author Organization [facility] Address [address] [place] [address] Care Team Providers Care Critical Care Physician Name Role Phone Manoj Agudelo I Primary Care Provider [phone] Prince Owens MD Unavailable [phone] Encounter Details Date Type Department Care Team (Late st Contact Info) Description 08/26/2024 Orders Only [facility] Hematology/Oncology [address] [place] [phone] Prince Owens MD [address] [place] [address] Social History Tobacco Use Types Packs/Day Years [...] Encounter Note - Prince Owens MD - 08/26/2024 3:42 PM EDT Notified patient of results via [employer] message. documented in this encounter Plan of Treatment Upcoming Encounters Date Type Department Care Team (Late st Contact Info) Description 07/19/2025 9:00 AM EDT Office Visit [facility] Hematology/Oncology [address] [place] [phone] Prince Owens MD [address] [place], [place] [phone] R/S from 8- due to mother passing away 11/18/2025 2:00 PM EST Office Visit [facility] Dermatology [address] [place] [address] Iván Guajardo MD [address] [place], [place] [phone] Return in about 1 year (around 11/18/2025). documented as of this encounter Procedures * Due to [place] [employer] law, this organization might not be sharing negative HIV tests. Procedure Name Priority Date/Time Associated Diagnosis Comments CBC INCLUDES DIFFERENTIAL AND PLATELET COUNT Routine 08/26/2024 3:42 PM EDT Acquired hemolytic anemia LACTATE DEHYDROGENASE (LDH), SERUM Routine 08/26/2024 3:42 PM EDT Acquired hemolytic anemia COMPREHENSIVE METABOLIC PANEL WITH GFR Routine 08/26/2024 3:42 PM EDT Acquired hemolytic anemia documented in this encounter Results * Due to [place] [employer] law, this organization might not be sharing negative HIV tests. * (ABNORMAL) CBC INCLUDES DIFFERENTIAL AND PLATELET COUNT (08/26/2024 3:42 PM EDT) WBC 7.0 3.8 - 10.8 Thousand/ uL [facility] RBC 2.35(L) 4.20 - 5.80 Million/u L [facility] Hemoglobin 7.9(L) 13.2 - 17.1 g/dL [facility] Hematocrit 25.3(L) 38.5 - 50.0 % [facility] MCV 107.7(H) 80.0 - 100.0 fL [facility] MCH [...] parameters and the patient's clinical condition. RDW 13.1 11.0 - 15.0 % [facility] PLT 269 140 - 400 Thousand/ uL [facility] MPV 10.5 7.5 - 12.5 fL [facility] Neutrophils # 5040 1500 - 7800 cells/uL [facility] Lymphocytes # 1463 850 - 3900 cells/uL [facility] Monocytes # 364 200 - 950 cells/uL [facility] Eosinophils # 112 15 - 500 cells/uL [facility] Basophils # 21 0 - 200 cells/uL [facility] Neutrophils % 72 % [facility] Lymphocytes % 20.9 % [facility] Monocytes % 5.2 % [facility] Eosinophils % 1.6 % [facility] Basophils % 0.3 % [facility] 08/26/2024 3:42 PM EDT 08/27/2024 1:28 AM EDT Narrative Resulting Agency Comment [id number] us Prince Owens MD LAB SAME DAY RESULT Final Result [facility] [address] [place] [address] * (ABNORMAL) COMPREHENSIVE METABOLIC PANEL WITH GFR (08/26/2024 3:42 PM EDT) Glucose 355(H) 65 - 99 mg/dL [facility] Comment: Fasting reference interval For someone without known diabetes, a glucose value >125 mg/dL indicates that they may have diabetes and this should be confirmed with a follow-up test. Urea Nitrogen Blood (BUN) 20 7 - 25 mg/dL [facility] Creatinine 1.03 0.70 - 1.35 mg/dL [facility] EGFR 81 > OR = 60 mL/min/1. 73m2 [facility] BUN/Creatinine Ratio SEE NOTE: 6 - 22 (calc) [facility] Comment: Not Reported: BUN and Creatinine are within reference range. Sodium 136 135 - 146 mmol/L [facility] Potassium 4.4 3.5 - 5.3 mmol/L [facility] Chloride 99 98 - 110 mmol/L [facility] Carbon dioxide 29 20 - 32 mmol/L [facility] Calcium 9.3 8.6 - 10.3 mg/dL [facility] Protein Total (Serum) 7.2 6.1 - 8.1 g/dL [facility] Albumin 4.8 3.6 - 5.1 g/dL [facility] Globulin 2.4 1.9 - 3.7 g/dL (calc) [facility] Albumin/Globuli n 2.0 1.0 - 2.5 (calc) [facility] Bilirubin Total 3.8(H) 0.2 - 1.2 mg/dL [facility] Alkaline phosphatase 74 35 - 144 U/L [facility] AST (SGOT) 16 10 - 35 U/L [facility] ALT (SGPT) 39 9 - 46 U/L [facility] 08/26/2024 3:42 PM EDT 08/27/2024 1:28 AM EDT Narrative [facility] - 08/27/2024 4:39 AM EDT Please note that this estimated [...] needs for GFR calculation. Resulting Agency Comment [id number] us Prince Owens MD LABORATORY Final Resu lt [facility] [address] [place] [address] * LACTATE DEHYDROGENASE (LDH), SERUM (08/26/2024 3:42 PM EDT) Lactate dehydrogenase 198 120 - 250 U/L [facility] 08/26/2024 3:42 PM EDT 08/27/2024 1:28 AM EDT Narrative Resulting Agency Comment [id number] us Prince Owens MD LABORATORY Final Resu lt [facility] [address] [place] [address] documented in this encounter Visit Diagnoses Diagnosis Acquired hemolytic anemia (HCC) Acquired hemolytic anemia, unspecified documented in this encounter Care Teams Critical Care Physician Relationship Specialty Start Date End Date Manoj Agudelo I [place] [address] [place] [address] PCP - General Family Medicine 02/05/18 Prince Owens MD [address] [place] [address] Primary Hem Onc Provider Hematology/Oncology 04/18/25 documented as of this encounter
--- OUTSIDE RECORDS SUMMARY | 2025-07-08 14:30 | XMS_ITS | Encounter Summary ---
Author Organization [facility] Address [address] [place] [address] Care Team Providers Care Physical Sciences Professor Name Role Phone Manoj Agudelo I Primary Care Provider [phone] Prince Owens MD Unavailable [phone] Encounter Details Date Type Department Care Team (Late st Contact Info) Description 03/30/2025 Orders Only [facility] Hematology/Oncology [address] [place] [address] Prince Owens MD [address] [place] [address] Social History Tobacco Use Types Packs/Day Years [...] Encounter Note - Prince Owens MD - 03/30/2025 9:44 AM EDT Notified patient of results via [employer] message. documented in this encounter Plan of Treatment Upcoming Encounters Date Type Department Care Team (Late st Contact Info) Description 07/19/2025 9:00 AM EDT Office Visit [facility] Hematology/Oncology [address] [place] [phone] Prince Owens MD [address] [place] [address] R/S from 06-30 due to mother passing away 11/18/2025 2:00 PM EST Office Visit [facility] Dermatology [address] [place] [phone] Iván Guajardo MD [address] [place] [address] Return in about 1 year (around 11/18/2025). documented as of this encounter Procedures * Due to [place] [employer] law, this organization might not be sharing negative HIV tests. Procedure Name Priority Date/Time Associated Diagnosis Comments CBC (H/H, RBC, INDICES,WBC, PLT) Routine 03/30/2025 9:44 AM EDT Acquired hemolytic anemia (HCC) LACTATE DEHYDROGENASE (LDH), SERUM Routine 03/30/2025 9:44 AM EDT Acquired hemolytic anemia (HCC) COMPREHENSIVE METABOLIC PANEL WITH GFR Routine 03/30/2025 9:44 AM EDT Acquired hemolytic anemia (HCC) documented in this encounter Results * Due to [place] [employer] law, this organization might not be sharing negative HIV tests. * (ABNORMAL) COMPREHENSIVE METABOLIC PANEL WITH GFR (03/30/2025 9:44 AM EDT) Glucose 151(H) 65 - 99 mg/dL [...] and Creatinine are within reference range. Sodium 145 135 - 146 mmol/L [facility] Potassium 3.7 3.5 - 5.3 mmol/L [facility] Chloride 107 98 - 110 mmol/L [facility] Carbon dioxide 29 20 - 32 mmol/L [facility] Calcium 10.0 8.6 - 10.3 mg/dL [facility] Protein Total (Serum) 7.2 6.1 - 8.1 g/dL [facility] Albumin 5.0 3.6 - 5.1 g/dL [facility] Globulin 2.2 1.9 - 3.7 g/dL (calc) [facility] Albumin/Globuli n 2.3 1.0 - 2.5 (calc) [facility] Bilirubin Total 2.7(H) 0.2 - 1.2 mg/dL [facility] Alkaline phosphatase 74 35 - 144 U/L [facility] AST (SGOT) 17 10 - 35 U/L [facility] ALT (SGPT) 32 9 - 46 U/L [facility] 03/30/2025 9:44 AM EDT 03/31/2025 12:29 AM EDT Narrative [facility] - 03/31/2025 3:15 AM EDT Please note that this estimated [...] needs for GFR calculation. Resulting Agency Comment [id number] us Prince Owens MD LABORATORY Final Resu lt [facility] [address] [place] [address] * LACTATE DEHYDROGENASE (LDH), SERUM (03/30/2025 9:44 AM EDT) Lactate dehydrogenase 208 120 - 250 U/L [facility] 03/30/2025 9:44 AM EDT 03/31/2025 12:29 AM EDT Narrative Resulting Agency Comment [id number] Prince Owens MD LABORATORY Final Resu lt Performing Organization Address City/[facility] Co de Phone Number [facility] [address] [place] [address] * (ABNORMAL) CBC (H/H, RBC, INDICES,WBC, PLT) (03/30/2025 9:44 AM EDT) WBC 6.9 3.8 - 10.8 Thousand/ uL [facility] RBC 2.38(L) 4.20 - 5.80 Million/u L [facility] Hemoglobin 8.1(L) 13.2 - 17.1 g/dL [facility] Hematocrit 25.8(L) 38.5 - 50.0 % [facility] MCV 108.4(H) 80.0 - 100.0 fL [facility] MCH 34.0(H) 27.0 - 33.0 pg [facility] MCHC 31.4(L) 32.0 - 36.0 g/dL [facility] Comment: For adults, a slight decrease in the calculated MCHC value (in the range of 30 to 32 g/dL) is most likely not clinically significant; however, it should be interpreted with caution in correlation with other red cell parameters and the patient's clinical condition. RDW 14.4 11.0 - 15.0 % [facility] PLT 273 140 - 400 Thousand/ uL [facility] MPV 9.9 7.5 - 12.5 fL [facility] 03/30/2025 9:44 AM EDT 03/31/2025 12:29 AM EDT Narrative Resulting Agency Comment [id number] Prince Owens MD LAB SAME DAY RESULT Final Result Performing Organization Address City/[facility]/ZIP Co de Phone Number [facility] [address] [place] [address] documented in this encounter Visit Diagnoses Diagnosis Acquired hemolytic anemia (HCC) Acquired hemolytic anemia, unspecified documented in this encounter Care Teams Physical Sciences Professor Relationship Specialty Start Date End Date Manoj Agudelo I [address] [phone] PCP - General Family Medicine 02/05/18 Prince Owens MD [address] [place] [address] Primary Hem Onc Provider Hematology/Oncology 04/18/25 documented as of this encounter
--- OUTSIDE RECORDS SUMMARY | 2025-07-08 14:30 | XMS_ITS | Encounter Summary ---
Author Organization [facility] Address [address] [place] [address] Care Team Providers Care Cloth Burler Name Role Phone SantinochristianeJohncorywalter Carrion Primary Care Provider [phone]- [phone] Prince Owens MD Unavailable [phone] Encounter Details Date Type Department Care Team (Late st Contact Info) Description 02/28/2025 Orders Only [facility] Hematology/Oncology [address] [place] [address] Prince Owens MD [address] [place] [address] Social History Tobacco Use Types Packs/Day Years [...] Encounter Note - Prince Owens MD - 02/28/2025 10:23 AM EDT Results normal/stable. I have notified the patient via Delight[employer]. documented in this encounter Plan of Treatment Upcoming Encounters Date Type Department Care Team (Late st Contact Info) Description 07/19/2025 9:00 AM EDT Office Visit [facility] Hematology/Oncology [address] [place] [address] Prince Owens MD [address] [place] [address] R/S from - due to mother passing away 11/18/2025 2:00 PM EST Office Visit [facility] Dermatology [address] [place] [phone] Iván Guajardo MD [address] [place], [place] [phone] Return in about 1 year (around 11/18/2025). documented as of this encounter Procedures * Due to [place] [employer] law, this organization might not be sharing negative HIV tests. Procedure Name Priority Date/Time Associated Diagnosis Comments CBC (H/H, RBC, INDICES,WBC, PLT) Routine 02/28/2025 10:23 AM EDT Acquired hemolytic anemia (HCC) LACTATE DEHYDROGENASE (LDH), SERUM Routine 02/28/2025 10:23 AM EDT Acquired hemolytic anemia (HCC) COMPREHENSIVE METABOLIC PANEL WITH GFR Routine 02/28/2025 10:23 AM EDT Acquired hemolytic anemia (HCC) documented in this encounter Results * Due to [place] [employer] law, this organization might not be sharing negative HIV tests. * (ABNORMAL) COMPREHENSIVE METABOLIC PANEL WITH GFR (02/28/2025 10:23 AM EDT) Glucose 94 65 - 99 mg/dL [facility] Comment:Fasting reference in terval Urea Nitrogen Blood (BUN) 21 7 - [...] 19 9 - 46 U/L [facility] 02/28/2025 10:2 3 AM EDT 02/28/2025 3:40 PM EDT Narrative [facility] - 02/28/2025 7:06 PM EDT Please note that this estimated [...] needs for GFR calculation. Resulting Agency Comment [id number] us Prince Owens MD LABORATORY Final Resu lt [facility] [address] [place] [address] * LACTATE DEHYDROGENASE (LDH), SERUM (02/28/2025 10:23 AM EDT) Lactate dehydrogenase 180 120 - 250 U/L [facility] 02/28/2025 10:2 3 AM EDT 02/28/2025 3:40 PM EDT Narrative Resulting Agency Comment [id number] Prince Owens MD LABORATORY Final Resu lt Performing Organization Address [facility] Co de Phone Number [facility] [address] [place] [address] * (ABNORMAL) CBC (H/H, RBC, INDICES,WBC, PLT) (02/28/2025 10:23 AM EDT) WBC 8.1 3.8 - 10.8 Thousand/ uL [facility] RBC 3.27(L) 4.20 - 5.80 Million/u L [facility] Hemoglobin 11.1(L) 13.2 - 17.1 g/dL [facility] Hematocrit 33.6(L) 38.5 - 50.0 % [facility] MCV 102.8(H) 80.0 - 100.0 fL [facility] MCH 33.9(H) 27.0 - 33.0 pg [facility] MCHC 33.0 32.0 - 36.0 g/dL [facility] Comment: For adults, a slight decrease in the calculated MCHC value (in the range of 30 to 32 g/dL) is most likely not clinically significant; however, it should be interpreted with caution in correlation with other red cell parameters and the patient's clinical condition. RDW 12.8 11.0 - 15.0 % [facility] PLT 259 140 - 400 Thousand/ uL [facility] MPV 9.9 7.5 - 12.5 fL [facility] 02/28/2025 10:2 3 AM EDT 02/28/2025 3:40 PM EDT Narrative Resulting Agency Comment [id number] Prince Owens MD LAB SAME DAY RESULT Final Result Performing Organization Address City/[facility]/ZIP Co de Phone Number [facility] [address] [place] [address] documented in this encounter Visit Diagnoses Diagnosis Acquired hemolytic anemia (HCC) Acquired hemolytic anemia, unspecified documented in this encounter Care Teams Cloth Burler Relationship Specialty Start Date End Date Manoj Agudelo I [address] [phone] PCP - General Family Medicine 02/05/18 Prince Owens MD [address] [place] [address] Primary Hem Onc Provider Hematology/Oncology 04/18/25 documented as of this encounter
--- OUTSIDE RECORDS SUMMARY | 2025-07-08 14:30 | XMS_ITS | Encounter Summary ---
Author Organization [facility] Address [address] [place] [address] Care Team Providers Care Geriatric Nurse Assistant Name Role Phone SantinochristianeManoj I Primary Care Provider [phone] Prince Owens MD Unavailable [phone] Encounter Details Date Type Department Care Team (Late Contact Info) Description 08/31/2018 Orders Only [facility] Hematology/Oncology [address] [phone] Prince Owens MD [address] [place] [address] Social History Tobacco Use Types Packs/Day Years Used Date Smoking Tobacco: Never Assessed Sex and Gender Information Value Date Recorded Sex Assigned at Not on file Legal Sex Male 10:51 PM EDT Gender Identity Not on file Sexual Orientation Not on file documented as of this encounter Progress Notes * Prince Owens MD - 09/04/2018 10:26 AM EDT Your blood counts look stable. No intervention is required. documented in this encounter Plan of Treatment Upcoming Encounters Date Type Department Care Team (Late Contact Info) Description 07/19/2025 9:00 AM EDT Office Visit [facility] Hematology/Oncology [address] [place] [phone] Prince Owens MD 5 [place] [address] R/S from 8-28 due to mother passing away 11/18/2025 2:00 PM EST Office Visit [facility] Dermatology 5 [place] [address] Iván Guajardo MD [address] [place] [address] Return in about 1 year (around 11/18/2025). documented as of this encounter Procedures * Due to [place] state law, this organization might not be sharing negative HIV tests. Procedure Name Priority Date/Time Associated Diagnosis Comments CBC INCLUDES DIFFERENTIAL AND PLATELET COUNT Routine 08/31/2018 1:57 PM EDT Acquired hemolytic anemia BILIRUBIN, TOTAL, SERUM (ADULT) Routine 08/31/2018 1:57 PM EDT Acquired hemolytic anemia LACTATE DEHYDROGENASE (LDH), SERUM Routine 08/31/2018 1:56 PM EDT Acquired hemolytic anemia documented in this encounter Results * Due to [place] state law, this organization might not be sharing negative HIV tests. * (ABNORMAL) BILIRUBIN, TOTAL, SERUM (08/31/2018 1:57 PM EDT) Bilirubin Total 3.28(H) 0.00 - 1.20 mg/dL [facility] 08/31/2018 1:5 7 PM EDT 08/31/2018 1:57 PM EDT Narrative [facility] - 08/31/2018 4:03 PM EDT Patient's primary care provider is: N/A Testing performed at: [facility], [address] [place] [address], [id number], Grievance Manager: Bairon Kevin MD us Prince Owens MD LAB SAME DAY RESULT Final Result [address] [address] DIRECTOR Bairon Kevin MD * (ABNORMAL) CBC INCLUDES DIFFERENTIAL AND PLATELET COUNT (08/31/2018 1:57 PM EDT) WBC 6.4 3.8 - 10.8 K/uL [facility] Neutrophils # 2.6 1.5 - 7.8 K/uL [facility] Immature Granulocytes # 0.05 0.00 - 0.07 K/uL [facility] Comment:Cells included in IM M GRANS # : Metamyelocytes, Myelocytes and Promyelocytes. Lymphocytes # 3.1 0.9 - 3.9 K/uL [facility] Monocytes # 0.4 0.2 - 1.0 K/uL [facility] Eosinophils # 0.2 0.0 - 0.5 K/uL [facility] Basophils # 0.0 0.0 - 0.2 K/uL [facility] Neutrophils % 40.3 % [facility] Immature Granulocytes % 0.80 % [facility] Comment:Cells included in IM M GRANS % : Metamyelocytes, Myelocytes and Promyelocytes. Lymphocytes % 48.7 % [facility] Monocytes % 6.9 % [facility] Eosinophils % 2.8 % [facility] Basophils % 0.5 % [facility] RBC 3.09(L) 4.20 - 5.80 M/uL [facility] Hemoglobin 10.4(L) 13.2 - 17.1 g/dL [facility] Hematocrit 31.9(L) 38.5 - 50.0 % [facility] MCV 103.2(H) 80.0 - 100.0 fl [facility] MCH 33.7(H) 27.0 - 33.0 pg [facility] MCHC 32.6 32.0 - 36.0 g/dL [facility] RDW 14.7 11.0 - 15.0 % [facility] PLT 218 140 - 400 K/uL [facility] 08/31/2018 1:57 PM EDT 08/31/2018 1:57 PM EDT Narrative [facility] - 08/31/2018 2:06 PM EDT Patient's primary care provider is: N/A Testing performed at: [facility], [address] [place] [address], [id number], Grievance Manager: Bairon Kevin MD Prince Owens MD LAB SAME DAY RESULT Final Result Performing Organization Address [facility] Co de Phone Number [address] [address] DIRECTOR Bairon Kevin MD * LACTATE DEHYDROGENASE (LDH), SERUM (08/31/2018 1:56 PM EDT) Lactate dehydrogenase 219 120 - 250 U/L [facility] 08/31/2018 1:56 PM EDT 08/31/2018 8:58 PM EDT Narrative Resulting Agency Comment [id number] Prince Owens MD LABORATORY Final Resu lt Performing Organization Address City/[facility] Co de Phone Number [facility] [address] [place] [address] documented in this encounter Visit Diagnoses Diagnosis Acquired hemolytic anemia (HCC) Acquired hemolytic anemia, unspecified documented in this encounter Care Teams Geriatric Nurse Assistant Relationship Specialty Start Date End Date Manoj Agudelo I [address] [address] [place] [address] PCP - General Family Medicine 02/05/18 Prince Owens MD [address] [place] [address] Primary Hem Onc Provider Hematology/Oncology 04/18/25 documented as of this encounter
--- OUTSIDE RECORDS SUMMARY | 2025-07-08 14:30 | XMS_ITS | Encounter Summary ---
Author Organization [facility] Address [address] [place] [address] Care Team Providers Care Coremaker Supervisor Name Role Phone RachellesherryJohncorywalter Carrion Primary Care Provider [phone] Prince Owens MD Unavailable [phone] Encounter Details Date Type Department Care Team (Late st Contact Info) Description 01/03/2025 Orders Only [facility] Hematology/Oncology [address] [place] [address] Prince Owens MD [address] [place] [address] Social History Tobacco Use Types Packs/Day Years [...] Encounter Note - Prince Owens MD - 01/03/2025 10:43 AM EST Results normal/stable. I have notified the patient via [employer]ation[employer]. documented in this encounter Plan of Treatment Upcoming Encounters Date Type Department Care Team (Late st Contact Info) Description 07/19/2025 9:00 AM EDT Office Visit [facility] Hematology/Oncology [address] [place] [address] Prince Owens MD [address] [place] [address] R/S from 8- due to mother passing away 11/18/2025 2:00 PM EST Office Visit [facility] Dermatology [address] [place] [phone] Iván Guajardo MD [address] [place] [address] Return in about 1 year (around 11/18/2025). documented as of this encounter Procedures * Due to [place] [employer] law, this organization might not be sharing negative HIV tests. Procedure Name Priority Date/Time Associated Diagnosis Comments CBC INCLUDES DIFFERENTIAL AND PLATELET COUNT Routine 01/03/2025 10:43 AM EST Acquired hemolytic anemia LACTATE DEHYDROGENASE (LDH), SERUM Routine 01/03/2025 10:43 AM EST Acquired hemolytic anemia COMPREHENSIVE METABOLIC PANEL WITH GFR Routine 01/03/2025 10:43 AM EST Acquired hemolytic anemia documented in this encounter Results * Due to [place] [employer] law, this organization might not be sharing negative HIV tests. * (ABNORMAL) CBC INCLUDES DIFFERENTIAL AND PLATELET COUNT (01/03/2025 10:43 AM EST) WBC 7.3 3.8 - 10.8 Thousand/ uL [facility] RBC 3.21(L) 4.20 - 5.80 Million/u L [facility] Hemoglobin 10.9(L) 13.2 - 17.1 g/dL [facility] Hematocrit 34.2(L) 38.5 - 50.0 % [facility] MCV 106.5(H) 80.0 - 100.0 fL [facility] MCH 34.0(H) 27.0 - 33.0 pg [facility] MCHC 31.9(L) 32.0 - 36.0 g/dL [facility] Comment: For adults, a slight decrease in the calculated MCHC value (in the range of 30 to 32 g/dL) is most likely not clinically significant; however, it should be interpreted with caution in correlation with other red cell parameters and the patient's clinical condition. RDW 13.2 11.0 - 15.0 % [facility] PLT 240 140 - 400 Thousand/ uL [facility] MPV 10.0 7.5 - 12.5 fL [facility] Neutrophils # 4986 1500 - 7800 cells/uL [facility] Lymphocytes # 1679 850 - 3900 cells/uL [facility] Monocytes # 431 200 - 950 cells/uL [facility] Eosinophils # 161 15 - 500 cells/uL [facility] Basophils # 44 0 - 200 cells/uL [facility] Neutrophils % 68.3 % [facility] Lymphocytes % 23.0 % [facility] Monocytes % 5.9 % [facility] Eosinophils % 2.2 % [facility] Basophils % 0.6 % [facility] 01/03/2025 10:4 3 AM EST 01/04/2025 1:36 AM EST Narrative Resulting Agency Comment [id number] us Prince Owens MD LAB SAME DAY RESULT Final Result [facility] [address] [place] [address] * (ABNORMAL) COMPREHENSIVE METABOLIC PANEL WITH GFR (01/03/2025 10:43 AM EST) Glucose 217(H) 65 - 99 mg/dL [facility] Comment: [...] 20 - 32 mmol/L [facility] Calcium 9.5 8.6 - 10.3 mg/dL [facility] Protein Total (Serum) 7.1 6.1 - 8.1 g/dL [facility] Albumin 5.3(H) 3.6 - 5.1 g/dL [facility] Globulin 1.8(L) 1.9 - 3.7 g/dL (calc) [facility] Albumin/Globuli n 2.9(H) 1.0 - 2.5 (calc) [facility] Bilirubin Total 3.9(H) 0.2 - 1.2 mg/dL [facility] Alkaline phosphatase 58 35 - 144 U/L [facility] AST (SGOT) 15 10 - 35 U/L [facility] ALT (SGPT) 21 9 - 46 U/L [facility] 01/03/2025 10:4 3 AM EST 01/04/2025 1:36 AM EST Narrative [facility] - 01/04/2025 7:54 AM EST Please note that this estimated [...] needs for GFR calculation. Resulting Agency Comment [id number] Prince Owens MD LABORATORY Final Resu lt [facility] [address] [place] [address] * LACTATE DEHYDROGENASE (LDH), SERUM (01/03/2025 10:43 AM EST) Lactate dehydrogenase 192 120 - 250 U/L [facility] 01/03/2025 10:4 3 AM EST 01/04/2025 1:36 AM EST Narrative Resulting Agency Comment [id number] Prince Owens MD LABORATORY Final Resu lt [facility] [address] [place] [address] documented in this encounter Visit Diagnoses Diagnosis Acquired hemolytic anemia (HCC) Acquired hemolytic anemia, unspecified documented in this encounter Care Teams Coremaker Supervisor Relationship Specialty Start Date End Date Manoj Agudelo I [address] [address] [place] [address] PCP - General Family Medicine 02/05/18 Prince Owens MD [address] [place] [address] Primary Hem Onc Provider Hematology/Oncology 04/18/25 documented as of this encounter
--- OUTSIDE RECORDS SUMMARY | 2025-07-08 14:30 | XMS_ITS | Encounter Summary ---
Author Organization [facility] Address [address] [place] [address] Care Team Providers Care Back Roll Lathe Operator Name Role Phone RachellesherryJohncorywalter Carrion Primary Care Provider [phone] Prince Owens MD Unavailable [phone] Encounter Details Date Type Department Care Team (Late st Contact Info) Description 11/28/2023 Orders Only [facility] Hematology/Oncology [address] [place] [phone] Prince Owens MD [address] [place] [address] Social History Tobacco Use Types Packs/Day Years [...] Encounter Note - Prince Owens MD - 11/28/2023 3:12 PM EST Results normal/stable. I have notified the patient via [employer]. documented in this encounter Plan of Treatment Upcoming Encounters Date Type Department Care Team (Late st Contact Info) Description 07/19/2025 9:00 AM EDT Office Visit [facility] Hematology/Oncology [address] [place] [address] Prince Owens MD [address] [place] [address] R/S from 8- due to mother passing away 11/18/2025 2:00 PM EST Office Visit [facility] Dermatology [address] [place] [address] Iván Guajardo MD [address] [place], [place] [phone] Return in about 1 year (around 11/18/2025). documented as of this encounter Procedures * Due to [place] [employer] law, this organization might not be sharing negative HIV tests. Procedure Name Priority Date/Time Associated Diagnosis Comments CBC INCLUDES DIFFERENTIAL AND PLATELET COUNT Routine 11/28/2023 3:12 PM EST Malignant neoplasm of urinary bladder, unspecified site LACTATE DEHYDROGENASE (LDH), SERUM Routine 11/28/2023 3:12 PM EST Malignant neoplasm of urinary bladder, unspecified site COMPREHENSIVE METABOLIC PANEL WITH GFR Routine 11/28/2023 3:12 PM EST Malignant neoplasm of urinary bladder, unspecified site documented in this encounter Results * Due to [place] [employer] law, this organization might not be sharing negative HIV tests. * (ABNORMAL) CBC INCLUDES DIFFERENTIAL AND PLATELET COUNT (11/28/2023 3:12 PM EST) WBC 5.7 3.8 - 10.8 Thousand/u L [facility] RBC 3.01(L) 4.20 - 5.80 Million/uL [facility] Hemoglobin 10.2(L) 13.2 - 17.1 g/dL [facility] Hematocrit 30.5(L) 38.5 - 50.0 % [facility] MCV 101.3(H) 80.0 - 100.0 fL [facility] MCH 33.9(H) 27.0 - 33.0 pg [facility] MCHC 33.4 32.0 - 36.0 g/dL [facility] RDW 12.4 11.0 - 15.0 % [facility] PLT 228 140 - 400 Thousand/u L [facility] MPV 10.1 7.5 - 12.5 fL [facility] Neutrophils # 3089 1500 - 7800 cells/uL [facility] Lymphocytes # 2018 850 - 3900 cells/uL [facility] Monocytes # 365 200 - 950 cells/uL [facility] Eosinophils # 188 15 - 500 cells/uL [facility] Basophils # 40 0 - 200 cells/uL [facility] Neutrophils % 54.2 % [facility] Lymphocytes % 35.4 % [facility] Monocytes % 6.4 % [facility] Eosinophils % 3.3 % [facility] Basophils % 0.7 % [facility] 11/28/2023 3:12 PM EST 11/29/2023 12:06 AM EST Narrative Resulting Agency Comment [id number] Prince Owens MD LAB SAME DAY RESULT Final Result [facility] [address] [place] [address] * (ABNORMAL) COMPREHENSIVE METABOLIC PANEL WITH GFR (11/28/2023 3:12 PM EST) Glucose 148(H) 65 - 99 mg/dL [facility] Comment: Fasting reference interval For someone without known diabetes, a glucose value >125 mg/dL indicates that they may have diabetes and this should be confirmed with a follow-up test. Urea Nitrogen Blood (BUN) 17 7 - 25 mg/dL [facility] Creatinine 1.03 0.70 - 1.35 mg/dL [facility] EGFR 82 > OR = 60 mL/min/1. 73m2 [facility] [...] 10.3 mg/dL [facility] Protein Total (Serum) 7.4 6.1 - 8.1 g/dL [facility] Albumin 5.4(H) 3.6 - 5.1 g/dL [facility] Globulin 2.0 1.9 - 3.7 g/dL (calc) [facility] Albumin/Globuli n 2.7(H) 1.0 - 2.5 (calc) [facility] Bilirubin Total 4.7(H) 0.2 - 1.2 mg/dL [facility] Alkaline phosphatase 54 35 - 144 U/L [facility] AST (SGOT) 15 10 - 35 U/L [facility] ALT (SGPT) 21 9 - 46 U/L [facility] 11/28/2023 3:12 PM EST 11/29/2023 12:06 AM EST Narrative [facility] - 11/29/2023 4:48 AM EST Please note that this estimated [...] needs for GFR calculation. Resulting Agency Comment [id number] Prince Owens MD LABORATORY Final Resu lt Performing Organization Address City/[facility] Co de Phone Number [facility] [address] [place] [address] * LACTATE DEHYDROGENASE (LDH), SERUM (11/28/2023 3:12 PM EST) Lactate dehydrogenase 197 120 - 250 U/L [facility] 11/28/2023 3:12 PM EST 11/29/2023 12:06 AM EST Narrative Resulting Agency Comment [id number] Prince Owens MD LABORATORY Final Resu lt Performing Organization Address [facility] Co de Phone Number [facility] [address] [place] [address] documented in this encounter Visit Diagnoses Diagnosis Malignant neoplasm of urinary bladder, unspecified site (HCC) documented in this encounter Care Teams Back Roll Lathe Operator Relationship Specialty Start Date End Date Manoj Agudelo I [address] [address] [place] [address] PCP - General Family Medicine 02/05/18 Prince Owens MD [address] [place] [address] Primary Hem Onc Provider Hematology/Oncology 04/18/25 documented as of this encounter
--- OUTSIDE RECORDS SUMMARY | 2025-07-08 14:30 | XMS_ITS | Encounter Summary ---
Author Organization [facility] Address [address] [place] [address] Care Team Providers Care Chief Of Pediatric Urology Name Role Phone Manoj Agudelo I Primary Care Provider [phone]- [phone] Prince Owens MD Unavailable [phone] Encounter Details Date Type Department Care Team (Late Contact Info) Description 08/03/2018 Orders Only [facility] Hematology/Oncology [address] [phone] Prince Owens MD [address] [place] [phone] Social History Tobacco Use Types Packs/Day [...] EDT Office Visit [facility] Hematology/Oncology [address] [place] [phone] Prince Owens MD [address] [place] [address] [phone] R/S from 8-28 due to mother passing away 11/18/2025 2:00 PM EST Office Visit [facility] Dermatology [address] [place] [phone] Iván Guajardo MD [address] [place] [address] Return in about 1 year (around 11/18/2025). documented as of this encounter Procedures * Due to [place] [employer] law, this organization might not be sharing negative HIV tests. Procedure Name Priority Date/Time Associated Diagnosis Comments CBC INCLUDES DIFFERENTIAL AND PLATELET COUNT Routine 08/03/2018 5:45 PM EDT Acquired hemolytic anemia (HCC) BILIRUBIN, TOTAL, SERUM (ADULT) Routine 08/03/2018 5:45 PM EDT Acquired hemolytic anemia (HCC) LACTATE DEHYDROGENASE (LDH), SERUM Routine 08/03/2018 5:45 PM EDT Acquired hemolytic anemia (HCC) documented in this encounter Results * Due to [place] [employer] law, this organization might not be sharing negative HIV tests. * (ABNORMAL) CBC INCLUDES DIFFERENTIAL AND PLATELET COUNT (08/03/2018 5:45 PM EDT) WBC 6.4 3.8 - 10.8 K/uL [facility] Neutrophils # 2.4 1.5 - 7.8 K/uL [facility] Immature Granulocytes # 0.07 0.00 - 0.07 K/uL [facility] Comment:Cells included in IM M GRANS # : Metamyelocytes, Myelocytes and Promyelocytes. Lymphocytes # 3.1 0.9 - 3.9 K/uL [facility] Monocytes # 0.5 0.2 - 1.0 K/uL [facility] Eosinophils # 0.3 0.0 - 0.5 K/uL [facility] Basophils # 0.0 0.0 - 0.2 K/uL [facility] Neutrophils % 38.1 % [facility] Immature Granulocytes % 1.10 % [facility] Comment:Cells included in IM M GRANS % : Metamyelocytes, Myelocytes and Promyelocytes. Lymphocytes % 48.0 % [facility] Monocytes % 7.5 % [facility] Eosinophils % 4.7 % [facility] Basophils % 0.6 % [facility] RBC 2.91(L) 4.20 - 5.80 M/uL [facility] Hemoglobin 9.7(L) 13.2 - 17.1 g/dL [facility] Hematocrit 30.4(L) 38.5 - 50.0 % [facility] MCV 104.5(H) 80.0 - 100.0 fl [facility] MCH 33.3(H) 27.0 - 33.0 pg [facility] MCHC 31.9(L) 32.0 - 36.0 g/dL [facility] RDW 14.9 11.0 - 15.0 % [facility] PLT 281 140 - 400 K/uL [facility] 08/03/2018 5:45 PM EDT 08/03/2018 5:45 PM EDT Narrative [facility] - 08/03/2018 6:49 PM EDT Patient's primary care provider is: N/A Testing performed at: [facility], [address] [place] [address], [id number], Glass Sagger: Bairon Kevin MD Prince Owens MD LAB SAME DAY RESULT Final Result Performing Organization Address City/State/[facility] Co de Phone Number [address] [address] DIRECTOR Bairon Kevin MD * (ABNORMAL) BILIRUBIN, TOTAL, SERUM (08/03/2018 5:45 PM EDT) Bilirubin Total 2.51(H) 0.00 - 1.20 mg/dL [facility] 08/03/2018 5:45 PM EDT 08/03/2018 5:45 PM EDT Narrative [facility] - 08/04/2018 10:29 AM EDT Patient's primary care provider is: N/A Testing performed at: [facility], [address] [place] [address], [address], Glass Sagger: Bairon Kevin MD Prince Owens MD LAB SAME DAY RESULT Final Result [address] [address] DIRECTOR Bairon Kevin MD * LACTATE DEHYDROGENASE (LDH), SERUM (08/03/2018 5:45 PM EDT) Lactate dehydrogenase 221 120 - 250 U/L [facility] 08/03/2018 5:45 PM EDT 08/04/2018 2:59 AM EDT Narrative Resulting Agency Comment [id number] us Prince Owens MD LABORATORY Final Resu lt Performing Organization Address City/[facility]/ZIP Co de Phone Number [facility] [address] [place] [address] documented in this encounter Visit Diagnoses Diagnosis Acquired hemolytic anemia (HCC) Acquired hemolytic anemia, unspecified documented in this encounter Care Teams Chief Of Pediatric Urology Relationship Specialty Start Date End Date Manoj Agudelo I [place] [address] [place] [phone] PCP - General Family Medicine 02/05/18 Prince Owens MD [address] [place] [address] Primary Hem Onc Provider Hematology/Oncology 04/18/25 documented as of this encounter
--- OUTSIDE RECORDS SUMMARY | 2025-07-08 14:30 | XMS_ITS | Encounter Summary ---
Author Organization [facility] Address [address] [place] [address] Care Team Providers Care School Crossing Guard Name Role Phone SantinochristianeManoj I Primary Care Provider [phone] Prince Owens MD Unavailable [phone] Encounter Details Date Type Department Care Team (Late Contact Info) Description 10/05/2018 Orders Only [facility] Hematology/Oncology [address] [phone] Prince Owens MD [address] [place] [address] Social History Tobacco Use Types Packs/Day Years Used Date Smoking Tobacco: Never Assessed Sex and Gender Information Value Date Recorded Sex Assigned at Not on file Legal Sex Male 10:51 PM EDT Gender Identity Not on file Sexual Orientation Not on file documented as of this encounter Progress Notes * Prince Owens MD - 10/06/2018 1:04 PM EST Labs look stable.. See you soon. documented in this encounter Plan of Treatment Upcoming Encounters Date Type Department Care Team (Late Contact Info) Description 07/19/2025 9:00 AM EDT Office Visit [facility] Hematology/Oncology [address] [place] [phone] Prince Owens MD [address] [place] [address] R/S from 8-28 due to mother passing away 11/18/2025 2:00 PM EST Office Visit [facility] Dermatology [address] [place] [phone] Iván Guajardo MD [address] [place] [address] Return in about 1 year (around 11/18/2025). documented as of this encounter Procedures * Due to [facility] law, this organization might not be sharing negative HIV tests. Procedure Name Priority Date/Time Associated Diagnosis Comments CBC INCLUDES DIFFERENTIAL AND PLATELET COUNT Routine 10/05/2018 5:58 PM EST Acquired hemolytic anemia COMPREHENSIVE METABOLIC PANEL WITH GFR Routine 10/05/2018 5:58 PM EST Acquired hemolytic anemia LACTATE DEHYDROGENASE (LDH), SERUM Routine 10/05/2018 5:57 PM EST Acquired hemolytic anemia documented in this encounter Results * Due to [place] [employer] law, this organization might not be sharing negative HIV tests. * (ABNORMAL) COMPREHENSIVE METABOLIC PANEL WITH GFR (10/05/2018 5:58 PM EST) Glucose 164(H) 65 - 99 mg/dl [facility] Urea Nitrogen Blood (BUN) 24 7 - 25 mg/dL [facility] Creatinine 1.10 0.50 - 1.20 mg/dL [facility] Sodium 142 136 - 145 mmo/L [facility] Potassium 4.2 3.5 - 5.3 mmol/L [facility] Chloride 103 98 - 107 mmo/L [facility] Calcium 9.0 8.5 - 10.4 mg/dL [facility] Protein Total (Serum) 6.9 6.0 - 8.3 g/dL [facility] Albumin 4.9 3.5 - 5.3 g/dL [facility] Globulin 2 2 - 4 G/DL [facility] Bilirubin Total 3.16(H) 0.00 - 1.20 mg/dL [facility] Alkaline phosphatase 58 40 - 115 U/L [facility] AST (SGOT) 20 <45 U/L [facility] ALT (SGPT) 19 <67 U/L [facility] Carbon dioxide 26 23 - 33 mmol/L [facility] GFR 73 >60 ml/min [facility] Comment:If the patient is Af rican Belgian, please multiply result by 1.210 10/05/2018 5:58 PM EST 10/05/2018 5:58 PM EST Narrative [facility] - 10/05/2018 7:09 PM EST Patient's primary care provider is: N/A Testing performed at: [facility], [address] [place] [address], [address], Information And Referral Director: Bairon Kevin MD us Prince Owens MD LABORATORY Final Resu lt [address] [address] DIRECTOR Bairon Kevin MD * (ABNORMAL) CBC INCLUDES DIFFERENTIAL AND PLATELET COUNT (10/05/2018 5:58 PM EST) WBC 6.7 3.8 - 10.8 K/uL [facility] Neutrophils # 2.6 1.5 - 7.8 K/uL [facility] Immature Granulocytes # 0.03 0.00 - 0.07 K/uL [facility] Comment:Cells included in IM M GRANS # : Metamyelocytes, Myelocytes and Promyelocytes. Lymphocytes # 3.3 0.9 - 3.9 K/uL [facility] Monocytes # 0.5 0.2 - 1.0 K/uL [facility] Eosinophils # 0.2 0.0 - 0.5 K/uL [facility] Basophils # 0.0 0.0 - 0.2 K/uL [facility] Neutrophils % 39.4 % [facility] Immature Granulocytes % 0.40 % [facility] Comment:Cells included in IM M GRANS % : Metamyelocytes, Myelocytes and Promyelocytes. Lymphocytes % 49.3 % [facility] Monocytes % 7.7 % [facility] Eosinophils % 2.8 % [facility] Basophils % 0.4 % [facility] RBC 3.04(L) 4.20 - 5.80 M/uL [facility] Hemoglobin 10.0(L) 13.2 - 17.1 g/dL [facility] Hematocrit 31.5(L) 38.5 - 50.0 % [facility] MCV 103.6(H) 80.0 - 100.0 fl [facility] MCH 32.9 27.0 - 33.0 pg [facility] MCHC 31.7(L) 32.0 - 36.0 g/dL [facility] RDW 14.4 11.0 - 15.0 % [facility] PLT 223 140 - 400 K/uL [facility] 10/05/2018 5:58 PM EST 10/05/2018 5:58 PM EST Narrative [facility] - 10/05/2018 6:21 PM EST Patient's primary care provider is: N/A Testing performed at: [facility], [address] [place] [address], [id number], Information And Referral Director: Bairon Kevin MD Prince Owens MD LAB SAME DAY RESULT Final Result Performing Organization Address [facility] Co de Phone Number [address] [address] DIRECTOR Bairon Kevin MD * LACTATE DEHYDROGENASE (LDH), SERUM (10/05/2018 5:57 PM EST) Lactate dehydrogenase 223 120 - 250 U/L [facility] 10/05/2018 5:57 PM EST 10/06/2018 2:32 AM EST Narrative Resulting Agency Comment [id number] us Prince Owens MD LABORATORY Final Resu lt [facility] [address] [place] [address] documented in this encounter Visit Diagnoses Diagnosis Acquired hemolytic anemia (HCC) Acquired hemolytic anemia, unspecified documented in this encounter Care Teams School Crossing Guard Relationship Specialty Start Date End Date Manoj Agudelo I [address] [phone] PCP - General Family Medicine 02/05/18 Prince Owens MD [address] [place] [address] Primary Hem Onc Provider Hematology/Oncology 04/18/25 documented as of this encounter
--- OUTSIDE RECORDS SUMMARY | 2025-07-08 14:30 | XMS_ITS | Encounter Summary ---
Author Organization [facility] Address [address] [place] [address] Care Team Providers Care Direct Service Professional Name Role Phone Manoj Agudelo I Primary Care Provider [phone] Prince Owens MD Unavailable [phone] Encounter Details Date Type Department Care Team (Late Contact Info) Description 07/07/2018 Orders Only [facility] Hematology/Oncology [address] [phone] Prince Owens MD [address] [place] [address] Social History Tobacco Use Types Packs/Day [...] Office Visit [facility] Hematology/Oncology [address] [place] [phone] Prince Owens MD [address] [place] [address] [phone] R/S from 8-28 due to mother passing away 11/18/2025 2:00 PM EST Office Visit [facility] Dermatology [address] [place] [phone] Iván Guajardo MD [address] [place] [address] Return in about 1 year (around 11/18/2025). documented as of this encounter Procedures * Due to [place] [employer] law, this organization might not be sharing negative HIV tests. Procedure Name Priority Date/Time Associated Diagnosis Comments CBC INCLUDES DIFFERENTIAL AND PLATELET COUNT Routine 07/07/2018 3:12 PM EDT Acquired hemolytic anemia LACTATE DEHYDROGENASE (LDH), SERUM Routine 07/07/2018 3:12 PM EDT Acquired hemolytic anemia BILIRUBIN, TOTAL, SERUM (ADULT) Routine 07/07/2018 3:12 PM EDT Acquired hemolytic anemia documented in this encounter Results * Due to [place] [employer] law, this organization might not be sharing negative HIV tests. * (ABNORMAL) BILIRUBIN, TOTAL, SERUM (07/07/2018 3:12 PM EDT) Bilirubin Total 3.8(H) 0.2 - 1.2 mg/dL [facility] 07/07/2018 3:12 PM EDT 07/08/2018 12:41 AM EDT Narrative Resulting Agency Comment [id number] Prince Owens MD LAB SAME DAY RESULT Final Result Performing Organization Address City/[facility]/ZIP Co de Phone Number [facility] [address] [place] [address] * LACTATE DEHYDROGENASE (LDH), SERUM (07/07/2018 3:12 PM EDT) Lactate dehydrogenase 216 120 - 250 U/L [facility] 07/07/2018 3:12 PM EDT 07/08/2018 12:41 AM EDT Narrative Resulting Agency Comment [id number] Prince Owens MD LABORATORY Final Resu lt Performing Organization Address City/[facility]/ZIP Co de Phone Number [facility] [address] [place] [address] * (ABNORMAL) CBC INCLUDES DIFFERENTIAL AND PLATELET COUNT (07/07/2018 3:12 PM EDT) WBC 5.6 3.8 - 10.8 Thousand/u L [facility] RBC 2.92(L) 4.20 - 5.80 Million/uL [facility] Hemoglobin 9.9(L) 13.2 - 17.1 g/dL [facility] Hematocrit 28.5(L) 38.5 - 50.0 % [facility] MCV 97.6 80.0 - 100.0 fL [facility] MCH 33.9(H) 27.0 - 33.0 pg [facility] MCHC 34.7 32.0 - 36.0 g/dL [facility] RDW 12.6 11.0 - 15.0 % [facility] PLT 226 140 - 400 Thousand/u L [facility] MPV 10.0 7.5 - 12.5 fL [facility] Neutrophils # 2302 1500 - 7800 cells/uL [facility] Lymphocytes # 2750 850 - 3900 cells/uL [facility] Monocytes # 370 200 - 950 cells/uL [facility] Eosinophils # 157 15 - 500 cells/uL [facility] Basophils # 22 0 - 200 cells/uL [facility] Neutrophils % 41.1 % [facility] Lymphocytes % 49.1 % [facility] Monocytes % 6.6 % [facility] Eosinophils % 2.8 % [facility] Basophils % 0.4 % [facility] 07/07/2018 3:12 PM EDT 07/08/2018 12:41 AM EDT Narrative Resulting Agency Comment [id number] us Prince Owens MD LAB SAME DAY RESULT Final Result Performing Organization Address City/State/[facility] Co de Phone Number [facility] [address] [place] [address] documented in this encounter Visit Diagnoses Diagnosis Acquired hemolytic anemia (HCC) Acquired hemolytic anemia, unspecified documented in this encounter Care Teams Direct Service Professional Relationship Specialty Start Date End Date Manoj Agudelo I [address] [phone] PCP - General Family Medicine 02/05/18 Prince Owens MD [address] [place] [address] Primary Hem Onc Provider Hematology/Oncology 04/18/25 documented as of this encounter
--- OUTSIDE RECORDS SUMMARY | 2025-07-08 14:30 | XMS_ITS | Encounter Summary ---
Author Organization [facility] Address [address] [place] [address] Care Team Providers Care Chemical Processing Laborer Name Role Phone Manoj Agudelo I Primary Care Provider [phone] Prince Owens MD Unavailable Encounter Details Date Type Department Care Team (Late Contact Info) Description 05/12/2018 Orders Only [facility] Hematology/Oncology [address] [phone] Prince Owens MD [address] [place] [address] Social History Tobacco Use Types Packs/Day [...] EDT Office Visit [facility] Hematology/Oncology [address] [place] [phone] Prince Owens MD [address] [place] [address] [phone] R/S from 8-28 due to mother passing away 11/18/2025 2:00 PM EST Office Visit [facility] Dermatology [address] [place] [phone] Iván Guajardo MD [address] [place] [address] Return in about 1 year (around 11/18/2025). documented as of this encounter Procedures * Due to [place] [employer] law, this organization might not be sharing negative HIV tests. Procedure Name Priority Date/Time Associated Diagnosis Comments DIFFERENTIAL, MANUAL Routine 05/12/2018 1:50 PM EDT CBC WITH MANUAL DIFF Routine 05/12/2018 1:50 PM EDT Acquired hemolytic anemia LACTATE DEHYDROGENASE (LDH), SERUM Routine 05/12/2018 1:50 PM EDT Acquired hemolytic anemia BILIRUBIN, TOTAL, SERUM (ADULT) Routine 05/12/2018 1:50 PM EDT Acquired hemolytic anemia documented in this encounter Results * Due to [place] state law, this organization might not be sharing negative HIV tests. * DIFFERENTIAL, MANUAL (05/12/2018 1:50 PM EDT) Neutrophils # 3009 1500 - 7800 cells/uL [facility] Lymphocytes 1683 850 - 3900 cells/uL [facility] Monocytes # 306 200 - 950 cells/uL [facility] Eosinophils # 102 15 - 500 cells/uL [facility] Basophils # 0 0 - 200 cells/uL [facility] Neutrophils % 59.0 % [facility] Lymphocytes % 33.0 % [facility] Monocytes % 6.0 % [facility] Eosinophils % 2.0 % [facility] Basophils % 0 % [facility] Platelet Estimation ADEQUATE ADEQUATE [facility] CBC Morphology SEE NOTE NORMAL [facility] Comment: Anisocytosis 1 + Macrocytosis 1 + Polychromasia 1 + 05/12/2018 1:50 PM EDT 05/12/2018 9:15 PM EDT us Prince Owens MD LABORATORY Final Resu lt [facility] [address] [place] [address] * (ABNORMAL) BILIRUBIN, TOTAL, SERUM (05/12/2018 1:50 PM EDT) Pathologist [facility] Bilirubin Total 3.5(H) 0.2 - 1.2 mg/dL [facility] 05/12/2018 1:50 PM EDT 05/12/2018 9:15 PM EDT Narrative Resulting Agency Comment [id number] Prince Owens MD LAB SAME DAY RESULT Final Result Performing Organization Address [facility] Co de Phone Number [facility] [address] [place] [address] * LACTATE DEHYDROGENASE (LDH), SERUM (05/12/2018 1:50 PM EDT) Pathologist [facility] Lactate dehydrogenase 191 120 - 250 U/L [facility] 05/12/2018 1:50 PM EDT 05/12/2018 9:15 PM EDT Narrative Resulting Agency Comment [id number] Prince Owens MD LABORATORY Final Resu lt Performing Organization Address [facility] de Phone Number [facility] [address] [place] [address] * (ABNORMAL) CBC WITH MANUAL DIFF (05/12/2018 1:50 PM EDT) Pathologist [facility] WBC 5.1 3.8 - 10.8 Thousand/u L [facility] RBC 2.81(L) 4.20 - 5.80 Million/uL [facility] Hemoglobin 9.9(L) 13.2 - 17.1 g/dL [facility] Hematocrit 29.2(L) 38.5 - 50.0 % [facility] MCV 103.9(H) 80.0 - 100.0 fL [facility] MCH 35.2(H) 27.0 - 33.0 pg [facility] MCHC 33.8 32.0 - 36.0 g/dL [facility] RDW 14.5 11.0 - 15.0 % [facility] PLT 228 140 - 400 Thousand/u L [facility] MPV 7.8 7.5 - 12.5 fL [facility] 05/12/2018 1:50 PM EDT 05/12/2018 9:15 PM EDT Narrative Resulting Agency Comment [id number] us Prince Owens MD LABORATORY Final Resu lt [facility] [address] [place] [address] documented in this encounter Visit Diagnoses Diagnosis Acquired hemolytic anemia (HCC) Acquired hemolytic anemia, unspecified documented in this encounter Care Teams Chemical Processing Laborer Relationship Specialty Start Date End Date Manoj Agudelo I [place] [address] [place] [phone] PCP - General Family Medicine 02/05/18 Prince Owens MD [address] [place] [address] Primary Hem Onc Provider Hematology/Oncology 04/18/25 documented as of this encounter
--- OUTSIDE RECORDS SUMMARY | 2025-07-08 14:30 | XMS_ITS | Encounter Summary ---
Author Organization [facility] Address [address] [place] [address] Care Team Providers Care Welfare Project Manager Name Role Phone Manoj Agudelo I Primary Care Provider [phone] Prince Owens MD Unavailable [phone] Encounter Details Date Type Department Care Team (Late st Contact Info) Description 11/06/2023 Orders Only [facility] Hematology/Oncology 5 [place] [phone] Prince Owens MD 5 [place] [address] Social History Tobacco Use Types Packs/Day Years [...] Encounter Note - Prince Owens MD - 11/06/2023 12:37 PM EST Labs ordered as part of a clinical protocol. Nursing to follow up. documented in this encounter Plan of Treatment Upcoming Encounters Date Type Department Care Team (Late st Contact Info) Description 07/19/2025 9:00 AM EDT Office Visit [facility] Hematology/Oncology 5 [place] [address] Prince Owens MD 5 [place] [address] R/S from 8- due to mother passing away 11/18/2025 2:00 PM EST Office Visit [facility] Dermatology 5 [place] [phone] Iván Guajardo MD 5 [place], [place] [phone] Return in about 1 year (around 11/18/2025). documented as of this encounter Procedures * Due to [place] [employer] law, this organization might not be sharing negative HIV tests. Procedure Name Priority Date/Time Associated Diagnosis Comments CBC INCLUDES DIFFERENTIAL AND PLATELET COUNT Routine 11/06/2023 12:48 PM EST Malignant neoplasm of urinary bladder, unspecified site LACTATE DEHYDROGENASE (LDH), SERUM Routine 11/06/2023 12:48 PM EST Malignant neoplasm of urinary bladder, unspecified site COMPREHENSIVE METABOLIC PANEL WITH GFR Routine 11/06/2023 12:48 PM EST Malignant neoplasm of urinary bladder, unspecified site documented in this encounter Results * Due to [place] [employer] law, this organization might not be sharing negative HIV tests. * (ABNORMAL) CBC INCLUDES DIFFERENTIAL AND PLATELET COUNT (11/06/2023 12:48 PM EST) WBC 5.1 3.8 - 10.8 Thousand/u L [facility] RBC 2.65(L) 4.20 - 5.80 Million/uL [facility] Hemoglobin 8.6(L) 13.2 - 17.1 g/dL [facility] Hematocrit 26.6(L) 38.5 - 50.0 % [facility] MCV 100.4(H) 80.0 - 100.0 fL [facility] MCH 32.5 27.0 - 33.0 pg [facility] MCHC 32.3 32.0 - 36.0 g/dL [facility] RDW 14.0 11.0 - 15.0 % [facility] PLT 204 140 - 400 Thousand/u L [facility] MPV 9.8 7.5 - 12.5 fL [facility] Neutrophils # 2667 1500 - 7800 cells/uL [facility] Lymphocytes # 1800 850 - 3900 cells/uL [facility] Monocytes # 362 200 - 950 cells/uL [facility] Eosinophils # 240 15 - 500 cells/uL [facility] Basophils # 31 0 - 200 cells/uL [facility] Neutrophils % 52.3 % [facility] Lymphocytes % 35.3 % [facility] Monocytes % 7.1 % [facility] Eosinophils % 4.7 % [facility] Basophils % 0.6 % [facility] 11/06/2023 12:4 8 PM EST 11/06/2023 7:29 PM EST Narrative Resulting Agency Comment [id number] Prince Owens MD LAB SAME DAY RESULT Final Result [facility] [address] [place] [address] * (ABNORMAL) COMPREHENSIVE METABOLIC PANEL WITH GFR (11/06/2023 12:48 PM EST) Glucose 112(H) 65 - 99 mg/dL [facility] Comment: Fasting reference interval For someone without known diabetes, a glucose value between 100 and 125 mg/dL is consistent with prediabetes and should be confirmed with a follow-up test. Urea Nitrogen Blood (BUN) 16 7 - 25 mg/dL [facility] Creatinine 0.93 0.70 - 1.35 mg/dL [facility] EGFR 92 > OR = 60 mL/min/1. 73m2 [facility] [...] 6.1 - 8.1 g/dL [facility] Albumin 4.7 3.6 - 5.1 g/dL [facility] Globulin 2.0 1.9 - 3.7 g/dL (calc) [facility] Albumin/Globuli n 2.4 1.0 - 2.5 (calc) [facility] Bilirubin Total 4.1(H) 0.2 - 1.2 mg/dL [facility] Alkaline phosphatase 57 35 - 144 U/L [facility] AST (SGOT) 15 10 - 35 U/L [facility] ALT (SGPT) 16 9 - 46 U/L [facility] 11/06/2023 12:4 8 PM EST 11/06/2023 7:29 PM EST Narrative [facility] - 11/06/2023 11:49 PM EST Please note that this estimated [...] needs for GFR calculation. Resulting Agency Comment [id number] Prince Owens MD LABORATORY Final Resu lt Performing Organization Address City/[facility] Co de Phone Number [facility] [address] [place] [address] * LACTATE DEHYDROGENASE (LDH), SERUM (11/06/2023 12:48 PM EST) Lactate dehydrogenase 213 120 - 250 U/L [facility] 11/06/2023 12:4 8 PM EST 11/06/2023 7:29 PM EST Narrative Resulting Agency Comment [id number] Prince Owens MD LABORATORY Final Resu lt Performing Organization Address City/[facility] Co de Phone Number [facility] [address] [place] [address] documented in this encounter Visit Diagnoses Diagnosis Malignant neoplasm of urinary bladder, unspecified site (HCC) documented in this encounter Care Teams Welfare Project Manager Relationship Specialty Start Date End Date Manoj Agudelo I [address] [place] [address] PCP - General Family Medicine 02/05/18 Prince Owens MD 5 [place] [address] Primary Hem Onc Provider Hematology/Oncology 04/18/25 documented as of this encounter
--- OUTSIDE RECORDS SUMMARY | 2025-07-08 14:30 | XMS_ITS | Encounter Summary ---
Author Organization [facility] Address 5 [place] [address] Care Team Providers Care Ruby Developer Name Role Phone Manoj Agudelo I Primary Care Provider [phone] Prince Owens MD Unavailable [phone] Encounter Details Date Type Department Care Team (Late st Contact Info) Description 02/07/2025 Orders Only [facility] Hematology/Oncology 5 [place] [address] La Nena Welch, RN [address] [place] [address] Social History Tobacco Use Types Packs/Day Years [...] Encounter Note - Prince Owens MD - 02/07/2025 12:30 PM EDT Results normal/stable. I have notified the patient via MyChart. documented in this encounter Plan of Treatment Upcoming Encounters Date Type Department Care Team (Late st Contact Info) Description 07/19/2025 9:00 AM EDT Office Visit [facility] Hematology/Oncology 5 [place] [phone] Prince Owens MD 5 [place] [address] R/S from 8-28 due to mother passing away 11/18/2025 2:00 PM EST Office Visit [facility] Dermatology 5 [place] [phone] Iván Guajardo MD [address] [place], [place] [phone] Return in about 1 year (around 11/18/2025). documented as of this encounter Procedures * Due to [facility] law, this organization might not be sharing negative HIV tests. Procedure Name Priority Date/Time Associated Diagnosis Comments CBC INCLUDES DIFFERENTIAL AND PLATELET COUNT Routine 02/07/2025 12:30 PM EDT Acquired hemolytic anemia (HCC) documented in this encounter Results * Due to [place] [employer] law, this organization might not be sharing negative HIV tests. * (ABNORMAL) CBC INCLUDES DIFFERENTIAL AND PLATELET COUNT (02/07/2025 12:30 PM EDT) WBC 6.9 3.8 - 10.8 Thousand/ uL [facility] RBC 3.28(L) 4.20 - 5.80 Million/u L [facility] Hemoglobin 11.2(L) 13.2 - 17.1 g/dL [facility] Hematocrit 33.2(L) 38.5 - 50.0 % [facility] MCV 101.2(H) 80.0 - 100.0 fL [facility] MCH 34.1(H) 27.0 - 33.0 pg [facility] MCHC 33.7 32.0 - 36.0 g/dL [facility] Comment: For adults, a slight decrease in the calculated MCHC value (in the range of 30 to 32 g/dL) is most likely not clinically significant; however, it should be interpreted with caution in correlation with other red cell parameters and the patient's clinical condition. RDW 12.5 11.0 - 15.0 % [facility] PLT 243 140 - 400 Thousand/ uL [facility] MPV 10.0 7.5 - 12.5 fL [facility] Neutrophils # 3995 1500 - 7800 cells/uL [facility] Lymphocytes # 2208 850 - 3900 cells/uL [facility] Monocytes # 476 200 - 950 cells/uL [facility] Eosinophils # 179 15 - 500 cells/uL [facility] Basophils # 41 0 - 200 cells/uL [facility] Neutrophils % 57.9 % [facility] Lymphocytes % 32.0 % [facility] Monocytes % 6.9 % [facility] Eosinophils % 2.6 % [facility] Basophils % 0.6 % [facility] 02/07/2025 12:3 0 PM EDT 02/07/2025 11:48 PM EDT Narrative Resulting Agency Comment [id number] us Prince Owens MD LAB SAME DAY RESULT Final Result Performing Organization Address City/State/[facility] de Phone Number [facility] [address] [place] [address] documented in this encounter Visit Diagnoses Diagnosis Acquired hemolytic anemia (HCC) Acquired hemolytic anemia, unspecified documented in this encounter Care Teams Ruby Developer Relationship Specialty Start Date End Date Manoj Agudelo I [address] [address] [place] [address] PCP - General Family Medicine 02/05/18 Prince Owens MD [address] [place] [address] Primary Hem Onc Provider Hematology/Oncology 04/18/25 documented as of this encounter
--- OUTSIDE RECORDS SUMMARY | 2025-07-08 14:30 | XMS_ITS | Encounter Summary ---
Author Organization [facility] Address [address] [place] [address] Care Team Providers Care [employer] Spanish Teacher Name Role Phone Manoj Agudelo I Primary Care Provider [phone] Prince Owens MD Unavailable [phone] Encounter Details Date Type Department Care Team (Late Contact Info) Description 06/10/2018 Orders Only [facility] Hematology/Oncology [address] [phone] Prince Owens MD [address] [place] [address] Social History Tobacco Use Types Packs/Day Years Used Date Smoking Tobacco: Never Assessed Sex and Gender Information Value Date Recorded Sex Assigned at Not on file Legal Sex Male 10:51 PM EDT Gender Identity Not on file Sexual Orientation Not on file documented as of this encounter Progress Notes * Prince Owens MD - 06/11/2018 12:37 PM EDT Can nursing kindly call him to review his labs. They are stable compared to his last labs. documented in this encounter Plan of Treatment Upcoming Encounters Date Type Department Care Team (Late st Contact Info) Description 07/19/2025 9:00 AM EDT Office Visit [facility] Hematology/Oncology [address] [place] [phone] Prince Owens MD [address] [place] [address] R/S from 8-28 due to mother passing away 11/18/2025 2:00 PM EST Office Visit [facility] Dermatology 5 [place] [phone] Iván Guajardo MD 5 [place] [address] Return in about 1 year (around 11/18/2025). documented as of this encounter Procedures * Due to [place] state law, this organization might not be sharing negative HIV tests. Procedure Name Priority Date/Time Associated Diagnosis Comments CBC INCLUDES DIFFERENTIAL AND PLATELET COUNT Routine 06/10/2018 11:05 AM EDT Acquired hemolytic anemia BILIRUBIN, TOTAL, SERUM (ADULT) Routine 06/10/2018 11:05 AM EDT Acquired hemolytic anemia LACTATE DEHYDROGENASE (LDH), SERUM Routine 06/10/2018 10:56 AM EDT Acquired hemolytic anemia documented in this encounter Results * Due to [place] state law, this organization might not be sharing negative HIV tests. * (ABNORMAL) BILIRUBIN, TOTAL, SERUM (06/10/2018 11:05 AM EDT) Bilirubin Total 3.32(H) 0.00 - 1.20 mg/dL [facility] 06/10/2018 11:0 5 AM EDT 06/10/2018 11:05 AM EDT Narrative [facility] - 06/10/2018 1:44 PM EDT non fasting Patient's primary care provider is: N/A Testing performed at: [facility], [address] [place] [address] , [place], [address], Graphic Editor: Carolee Mercedes, Ph.D us Prince Owens MD LAB SAME DAY RESULT Final Result [address] [place] [address] DIRECTOR Carolee Mercedes, Ph.D * (ABNORMAL) CBC INCLUDES DIFFERENTIAL AND PLATELET COUNT (06/10/2018 11:05 AM EDT) WBC 5.3 3.8 - 10.8 K/uL [facility] Neutrophils # 2.2 1.5 - 7.8 K/uL [facility] Immature Granulocytes # 0.02 0.00 - 0.07 K/uL [facility] Comment:Cells included in IM M GRANS # : Metamyelocytes, Myelocytes and Promyelocytes. Lymphocytes # 2.7 0.9 - 3.9 K/uL [facility] Monocytes # 0.3 0.2 - 1.0 K/uL [facility] Eosinophils # 0.1 0.0 - 0.5 K/uL [facility] Basophils # 0.0 0.0 - 0.2 K/uL [facility] Neutrophils % 40.4 % [facility] Immature Granulocytes % 0.40 % [facility] Comment:Cells included in IM M GRANS % : Metamyelocytes, Myelocytes and Promyelocytes. Lymphocytes % 49.8 % [facility] Monocytes % 6.2 % [facility] Eosinophils % 2.6 % [facility] Basophils % 0.6 % [facility] RBC 2.91(L) 4.20 - 5.80 M/uL [facility] Hemoglobin 9.9(L) 13.2 - 17.1 g/dL [facility] Hematocrit 30.4(L) 38.5 - 50.0 % [facility] MCV 104.5(H) 80.0 - 100.0 fl [facility] MCH 34.0(H) 27.0 - 33.0 pg [facility] MCHC 32.6 32.0 - 36.0 g/dL [facility] RDW 14.6 11.0 - 15.0 % [facility] PLT 253 140 - 400 K/uL [facility] 06/10/2018 11:0 5 AM EDT 06/10/2018 11:05 AM EDT Narrative [facility] - 06/10/2018 12:32 PM EDT non fasting Patient's primary care provider is: N/A Testing performed at: [facility], [address] [place] [address], [id number], Graphic Editor: Carolee Mercedes, Ph.D us Prince Owens MD LAB SAME DAY RESULT Final Result Performing Organization Address [facility]/ZIP Co de Phone Number [address] [address] DIRECTOR Carolee Mercedes, Ph.D * LACTATE DEHYDROGENASE (LDH), SERUM (06/10/2018 10:56 AM EDT) Lactate dehydrogenase 230 120 - 250 U/L [facility] 06/10/2018 10:5 6 AM EDT 06/10/2018 8:18 PM EDT Narrative Resulting Agency Comment [id number] us Prince Owens MD LABORATORY Final Resu lt Performing Organization Address City/[facility]/ZIP Co de Phone Number [facility] [address] [place] [address] documented in this encounter Visit Diagnoses Diagnosis Acquired hemolytic anemia (HCC) Acquired hemolytic anemia, unspecified documented in this encounter Care Teams [employer] Spanish Teacher Relationship Specialty Start Date End Date Manoj Aguedlo I [address] [address] [place] [phone] PCP - General Family Medicine 02/05/18 Prince Owens MD [address] [place] [address] Primary Hem Onc Provider Hematology/Oncology 04/18/25 documented as of this encounter
--- OUTSIDE RECORDS SUMMARY | 2025-07-08 14:30 | XMS_ITS | Encounter Summary ---
Author Organization [facility] Address [address] [place] [address] Care Team Providers Care Sampler And Test Preparer Name Role Phone SantinochristianeManoj I Primary Care Provider [phone] Prince Owens MD Unavailable [phone] Encounter Details Date Type Department Care Team (Late st Contact Info) Description 02/07/2018 Orders Only [facility] Hematology/Oncology 1 [facility] [address] [place] [phone] Prince Owens MD 5 [place] [address] Social History Tobacco Use Types Packs/Day Years Used Date Smoking Tobacco: Never Assessed Sex and Gender Information Value Date Recorded Sex Assigned at Not on file Legal Sex Male 10:51 PM EDT Gender Identity Not on file Sexual Orientation Not on file documented as of this encounter Progress Notes * Rima Trujillo RN - 02/09/2018 4:19 PM EDT I spoke with the patient to advise of results. He asked that we fax the results to Dr Ibrahim at [phone] for his upcoming appointment next week. * Prince Owens MD - 02/09/2018 9:46 AM EDT Can someone kindly called Mr. Mccullough with his results. I spoke with him on Friday prior to ordering them. Since they are stable compared to his last blood draw he should continue to follow up with his cement finisher at the [facility] at his regularly scheduled visit on the . If he feels worse he can contact us and we can see him sooner than that. 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 Thank you documented in this encounter Plan of Treatment Upcoming Encounters Date Type Department Care Team (Late st Contact Info) Description 07/19/2025 9:00 AM EDT Office Visit [facility] Hematology/Oncology [address] [place] [phone] Prince Owens MD 5 [place] [address] R/S from 8-28 due to mother passing away 11/18/2025 2:00 PM EST Office Visit [facility] Dermatology [address] [place] [phone] Iván Guajardo MD [address] [place] [address] Return in about 1 year (around 11/18/2025). documented as of this encounter Procedures * Due to [place] [employer] law, this organization might not be sharing negative HIV tests. Procedure Name Priority Date/Time Associated Diagnosis Comments CBC INCLUDES DIFFERENTIAL AND PLATELET COUNT Routine 02/07/2018 11:49 AM EDT Acquired hemolytic anemia LACTATE DEHYDROGENASE (LDH), SERUM Routine 02/07/2018 11:49 AM EDT Acquired hemolytic anemia HEPATIC FUNCTION PANEL (ALT,AST,ALK PH,BILI'S,TP,ALB) Routine 02/07/2018 11:49 AM EDT Acquired hemolytic anemia documented in this encounter Results * Due to [place] [employer] law, this organization might not be sharing negative HIV tests. * (ABNORMAL) LACTATE DEHYDROGENASE (LDH), SERUM (02/07/2018 11:49 AM EDT) Lactate dehydrogenase 270(H) 120 - 250 U/L [facility] 02/07/2018 11:4 9 AM EDT 02/07/2018 7:11 PM EDT Narrative Resulting Agency Comment [id number] Prince Owens MD LABORATORY Final Resu lt Performing Organization Address City/[facility] Co de Phone Number [facility] [address] [place] [address] * (ABNORMAL) HEPATIC FUNCTION PANEL (ALT,AST,ALK PH,BILI'S,TP,ALB) (02/07/2018 11:49 AM EDT) Pathologist [facility] Protein Total (Serum) 6.7 6.1 - 8.1 g/dL [facility] Albumin 4.5 3.6 - 5.1 g/dL [facility] Globulin 2.2 1.9 - 3.7 g/dL (calc) [facility] Albumin/Globulin 2.0 1.0 - 2.5 (calc) [facility] Bilirubin Total 3.3(H) 0.2 - 1.2 mg/dL [facility] Bilirubin Direct 0.4(H) < OR = 0.2 mg/dL [facility] Bilirubin Indirect 2.9(H) 0.2 - 1.2 mg/dL (calc) [facility] Alkaline phosphatase 60 40 - 115 U/L [facility] AST (SGOT) 18 10 - 35 U/L [facility] ALT (SGPT) 17 9 - 46 U/L [facility] 02/07/2018 11:4 9 AM EDT 02/07/2018 7:11 PM EDT Narrative Resulting Agency Comment [id number] us Prince Owens MD LABORATORY Final Resu lt [facility] [address] [place] [address] * (ABNORMAL) CBC INCLUDES DIFFERENTIAL AND PLATELET COUNT (02/07/2018 11:49 AM EDT) Pathologist [facility] WBC 4.9 3.8 - 10.8 Thousand/u L [facility] RBC 2.91(L) 4.20 - 5.80 Million/uL [facility] Hemoglobin 10.2(L) 13.2 - 17.1 g/dL [facility] Hematocrit 30.1(L) 38.5 - 50.0 % [facility] MCV 103.6(H) 80.0 - 100.0 fL [facility] MCH 35.1(H) 27.0 - 33.0 pg [facility] MCHC 33.9 32.0 - 36.0 g/dL [facility] RDW 14.9 11.0 - 15.0 % [facility] PLT 240 140 - 400 Thousand/u L [facility] MPV 7.9 7.5 - 12.5 fL [facility] Neutrophils # 2107 1500 - 7800 cells/uL [facility] Lymphocytes # 2318 850 - 3900 cells/uL [facility] Monocytes # 353 200 - 950 cells/uL [facility] Eosinophils # 98 15 - 500 cells/uL [facility] Basophils # 25 0 - 200 cells/uL [facility] Neutrophils % 43.0 % [facility] Lymphocytes % 47.3 % [facility] Monocytes % 7.2 % [facility] Eosinophils % 2.0 % [facility] Basophils % 0.5 % [facility] 02/07/2018 11:4 9 AM EDT 02/07/2018 7:11 PM EDT Narrative Resulting Agency Comment [id number] us Prince Owens MD LAB SAME DAY RESULT Final Result Performing Organization Address City/State/[facility] Co de Phone Number [facility] [address] [place] [address] documented in this encounter Visit Diagnoses Diagnosis Acquired hemolytic anemia (HCC) Acquired hemolytic anemia, unspecified documented in this encounter Care Teams Sampler And Test Preparer Relationship Specialty Start Date End Date Manoj Agudelo I [address] [address] [place] [phone] PCP - General Family Medicine 02/05/18 Prince Owens MD [address] [place] [address] Primary Hem Onc Provider Hematology/Oncology 04/18/25 documented as of this encounter
--- OUTSIDE RECORDS SUMMARY | 2025-07-08 14:31 | XMS_ITS | Encounter Summary ---
Author Organization [facility] Address [address] [place] [address] Care Team Providers Care Cane Flume Watcher Name Role Phone Manoj Agudelo I Primary Care Provider [phone]- [phone] Prince Owens MD Unavailable [phone] Encounter Details Date Type Department Care Team ([facility] Contact Info) Description 05/21/2024 Orders Only [facility] Hematology/Oncology [address] [place] [phone] Prince Owens MD [address] [place] [address] Social History Tobacco Use Types Packs/Day Years [...] Upcoming Encounters Date Type Department Care Team ([facility] Contact Info) Description 07/19/2025 9:00 AM EDT Office Visit [facility] Hematology/Oncology [address] [place] [phone] Prince Owens MD 5 [place] [address] R/S from 8-28 due to mother passing away 11/18/2025 2:00 PM EST Office Visit [facility] Dermatology 5 [place] [phone] Iván Guajardo MD 5 [place] [address] Return in about 1 year (around 11/18/2025). documented as of this encounter Procedures * Due to [facility] law, this organization might not be sharing negative HIV tests. Procedure Name Priority Date/Time Associated Diagnosis Comments CBC INCLUDES DIFFERENTIAL AND PLATELET COUNT Routine 05/21/2024 11:21 AM EDT Acquired hemolytic anemia LACTATE DEHYDROGENASE (LDH), SERUM Routine 05/21/2024 11:21 AM EDT Acquired hemolytic anemia COMPREHENSIVE METABOLIC PANEL WITH GFR Routine 05/21/2024 11:21 AM EDT Acquired hemolytic anemia documented in this encounter Results * Due to [place] [employer] law, this organization might not be sharing negative HIV tests. * (ABNORMAL) CBC INCLUDES DIFFERENTIAL AND PLATELET COUNT (05/21/2024 11:21 AM EDT) WBC 6.8 3.8 - 10.8 Thousand/u L [facility] RBC 2.93(L) 4.20 - 5.80 Million/uL [facility] Hemoglobin 9.9(L) 13.2 - 17.1 g/dL [facility] Hematocrit 30.8(L) 38.5 - 50.0 % [facility] MCV 105.1(H) 80.0 - 100.0 fL [facility] MCH 33.8(H) 27.0 - 33.0 pg [facility] MCHC 32.1 32.0 - 36.0 g/dL [facility] RDW 12.8 11.0 - 15.0 % [facility] PLT 196 140 - 400 Thousand/u L [facility] MPV 10.1 7.5 - 12.5 fL [facility] Neutrophils # 4243 1500 - 7800 cells/uL [facility] Lymphocytes # 1931 850 - 3900 cells/uL [facility] Monocytes # 422 200 - 950 cells/uL [facility] Eosinophils # 163 15 - 500 cells/uL [facility] Basophils # 41 0 - 200 cells/uL [facility] Neutrophils % 62.4 % [facility] Lymphocytes % 28.4 % [facility] Monocytes % 6.2 % [facility] Eosinophils % 2.4 % [facility] Basophils % 0.6 % [facility] 05/21/2024 11:2 1 AM EDT 05/21/2024 11:34 PM EDT Narrative Resulting Agency Comment [id number] us Prince Owens MD LAB SAME DAY RESULT Final Result [facility] [address] [place] [address] * (ABNORMAL) COMPREHENSIVE METABOLIC PANEL WITH GFR (05/21/2024 11:21 AM EDT) Glucose 215(H) 65 - 99 mg/dL [facility] Comment: Fasting reference interval For someone without known diabetes, a glucose value >125 mg/dL indicates that they may have diabetes and this should be confirmed with a follow-up test. Urea Nitrogen Blood (BUN) 18 7 - 25 mg/dL [facility] Creatinine 0.97 0.70 - 1.35 mg/dL [facility] EGFR 88 > OR = 60 mL/min/1. 73m2 [facility] BUN/Creatinine Ratio SEE NOTE: 6 - 22 (calc) [facility] Comment: Not Reported: BUN and Creatinine are within reference range. Sodium 142 135 - 146 mmol/L [facility] Potassium 4.0 3.5 - 5.3 mmol/L [facility] Chloride 106 98 - 110 mmol/L [facility] Carbon dioxide 28 20 - 32 mmol/L [facility] Calcium 9.2 8.6 - 10.3 mg/dL [facility] Protein Total (Serum) 6.6 6.1 - 8.1 g/dL [facility] Albumin 4.7 3.6 - 5.1 g/dL [facility] Globulin 1.9 1.9 - 3.7 g/dL (calc) [facility] Albumin/Globuli n 2.5 1.0 - 2.5 (calc) [facility] Bilirubin Total 4.3(H) 0.2 - 1.2 mg/dL [facility] Alkaline phosphatase 54 35 - 144 U/L [facility] AST (SGOT) 16 10 - 35 U/L [facility] ALT (SGPT) 24 9 - 46 U/L [facility] 05/21/2024 11:2 1 AM EDT 05/21/2024 11:34 PM EDT Narrative [facility] - 05/22/2024 3:11 AM EDT Please note that this estimated [...] needs for GFR calculation. Resulting Agency Comment [id number] Prince Owens MD LABORATORY Final Resu lt Performing Organization Address [facility] Co de Phone Number [facility] [address] [place] [address] * LACTATE DEHYDROGENASE (LDH), SERUM (05/21/2024 11:21 AM EDT) Lactate dehydrogenase 182 120 - 250 U/L [facility] 05/21/2024 11:2 1 AM EDT 05/21/2024 11:34 PM EDT Narrative Resulting Agency Comment [id number] Prince Owens MD LABORATORY Final Resu lt Performing Organization Address [facility] Co de Phone Number [facility] [address] [place] [address] documented in this encounter Visit Diagnoses Diagnosis Acquired hemolytic anemia (HCC) Acquired hemolytic anemia, unspecified documented in this encounter Care Teams Cane Flume Watcher Relationship Specialty Start Date End Date Manoj Agudelo I [address] [phone] PCP - General Family Medicine 02/05/18 Prince Owens MD [address] [place] [address] Primary Hem Onc Provider Hematology/Oncology 04/18/25 documented as of this encounter
--- OUTSIDE RECORDS SUMMARY | 2025-07-08 14:31 | XMS_ITS | Encounter Summary ---
Author Organization [facility] Address [address] [place] [address] Care Team Providers Care Bed Bug Exterminator Name Role Phone SantinochristianeManoj I Primary Care Provider [phone] Prince Owens MD Unavailable Encounter Details Date Type Department Care Team (Late Contact Info) Description 11/29/2019 Orders Only [facility] Hematology/Oncology [address] [phone] Prince Owens MD [address] [place] [phone] Social History Tobacco Use Types Packs/Day Years Used Date Smoking Tobacco: Never Cigarettes Smokeless Tobacco: Never Sex and Gender Information Value Date Recorded Sex Assigned at Not on file Legal Sex Male 10:51 PM EDT Gender Identity Not on file Sexual Orientation Not on file documented as of this encounter Progress Notes * Prince Owens MD - 11/29/2019 7:29 AM EST Labs look great!! Stay warm. documented in this encounter Plan of Treatment Upcoming Encounters Date Type Department Care Team (Late Contact Info) Description 07/19/2025 9:00 AM EDT Office Visit [facility] Hematology/Oncology [address] [place] [phone] Prince Owens MD 5 [place] [address] R/S from 8-28 due to mother passing away 11/18/2025 2:00 PM EST Office Visit [facility] Dermatology [address] [place] [phone] Iván Guajardo MD [address] [place] [address] Return in about 1 year (around 11/18/2025). documented as of this encounter Procedures * Due to [facility] law, this organization might not be sharing negative HIV tests. Procedure Name Priority Date/Time Associated Diagnosis Comments CBC INCLUDES DIFFERENTIAL AND PLATELET COUNT Routine 11/29/2019 7:29 AM EST Acquired hemolytic anemia LACTATE DEHYDROGENASE (LDH), SERUM Routine 11/29/2019 7:29 AM EST Acquired hemolytic anemia VENIPUNCTURE Routine 11/29/2019 7:29 AM EST Acquired hemolytic anemia documented in this encounter Results * Due to [place] [employer] law, this organization might not be sharing negative HIV tests. * (ABNORMAL) CBC INCLUDES DIFFERENTIAL AND PLATELET COUNT (11/29/2019 7:29 AM EST) WBC 5.2 3.8 - 10.8 Thousand/u L [facility] RBC 3.25(L) 4.20 - 5.80 Million/uL [facility] Hemoglobin 10.8(L) 13.2 - 17.1 g/dL [facility] Hematocrit 31.7(L) 38.5 - 50.0 % [facility] MCV 97.5 80.0 - 100.0 fL [facility] MCH 33.2(H) 27.0 - 33.0 pg [facility] MCHC 34.1 32.0 - 36.0 g/dL [facility] RDW 12.6 11.0 - 15.0 % [facility] PLT 216 140 - 400 Thousand/u L [facility] MPV 9.9 7.5 - 12.5 fL [facility] Neutrophils # 2517 1500 - 7800 cells/uL [facility] Lymphocytes # 2049 850 - 3900 cells/uL [facility] Monocytes # 400 200 - 950 cells/uL [facility] Eosinophils # 182 15 - 500 cells/uL [facility] Basophils # 52 0 - 200 cells/uL [facility] Neutrophils % 48.4 % [facility] Lymphocytes % 39.4 % [facility] Monocytes % 7.7 % [facility] Eosinophils % 3.5 % [facility] Basophils % 1.0 % [facility] 11/29/2019 7:29 AM EST 11/29/2019 10:19 AM EST Narrative Resulting Agency Comment [id number] Prince Owens MD LAB SAME DAY RESULT Final Result Performing Organization Address [facility] de Phone Number [facility] [address] [place] [address] * LACTATE DEHYDROGENASE (LDH), SERUM (11/29/2019 7:29 AM EST) Lactate dehydrogenase 199 120 - 250 U/L [facility] 11/29/2019 7:29 AM EST 11/29/2019 10:19 AM EST Narrative Resulting Agency Comment [id number] Prince Owens MD LABORATORY Final Resu lt Performing Organization Address [facility] de Phone Number [facility] [address] [place] [address] * (ABNORMAL) BILIRUBIN, TOTAL, SERUM (11/29/2019 7:29 AM EST) Bilirubin Total 3.0(H) 0.2 - 1.2 mg/dL [facility] 11/29/2019 7:29 AM EST 11/29/2019 10:19 AM EST Narrative Resulting Agency Comment [id number] us Prince Owens MD LAB SAME DAY RESULT Final Result Performing Organization Address [facility] de Phone Number [facility] [address] [place] [address] documented in this encounter Visit Diagnoses Diagnosis Acquired hemolytic anemia (HCC) Acquired hemolytic anemia, unspecified documented in this encounter Care Teams Bed Bug Exterminator Relationship Specialty Start Date End Date Manoj Agudelo I [address] [phone] PCP - General Family Medicine 02/05/18 Prince Owens MD [address] [place] [address] Primary Hem Onc Provider Hematology/Oncology 04/18/25 documented as of this encounter
--- OUTSIDE RECORDS SUMMARY | 2025-07-08 14:31 | XMS_ITS | Encounter Summary ---
Author Organization [facility] Address [address] [place] [address] Care Team Providers Care Senior Commissary Agent Name Role Phone Manoj Agudelo I Primary Care Provider [phone]- [phone] Prince Owens MD Unavailable [phone] Encounter Details Date Type Department Care Team ([facility] Contact Info) Description 04/10/2024 Orders Only [facility] Hematology/Oncology [address] [place] [phone] Prince Owens MD [address] [place] [address] Social History Tobacco Use Types Packs/Day Years [...] Upcoming Encounters Date Type Department Care Team ([facility] Contact Info) Description 07/19/2025 9:00 AM EDT Office Visit [facility] Hematology/Oncology [address] [place] [phone] Prince Owens MD [address] [place] [address] R/S from 8-28 due to mother passing away 11/18/2025 2:00 PM EST Office Visit [facility] Dermatology [address] [place] [phone] Iván Guajardo MD [address] [place] [address] Return in about 1 year (around 11/18/2025). documented as of this encounter Procedures * Due to [facility] law, this organization might not be sharing negative HIV tests. Procedure Name Priority Date/Time Associated Diagnosis Comments CBC INCLUDES DIFFERENTIAL AND PLATELET COUNT Routine 04/10/2024 11:08 AM EDT Malignant neoplasm of urinary bladder, unspecified site LACTATE DEHYDROGENASE (LDH), SERUM Routine 04/10/2024 11:08 AM EDT Malignant neoplasm of urinary bladder, unspecified site COMPREHENSIVE METABOLIC PANEL WITH GFR Routine 04/10/2024 11:08 AM EDT Malignant neoplasm of urinary bladder, unspecified site documented in this encounter Results * Due to [facility] law, this organization might not be sharing negative HIV tests. * (ABNORMAL) CBC INCLUDES DIFFERENTIAL AND PLATELET COUNT (04/10/2024 11:08 AM EDT) WBC 6.6 3.8 - 10.8 Thousand/u L [facility] RBC 3.02(L) 4.20 - 5.80 Million/uL [facility] Hemoglobin 10.0(L) 13.2 - 17.1 g/dL [facility] Hematocrit 31.0(L) 38.5 - 50.0 % [facility] MCV 102.6(H) 80.0 - 100.0 fL [facility] MCH 33.1(H) 27.0 - 33.0 pg [facility] MCHC 32.3 32.0 - 36.0 g/dL [facility] RDW 14.8 11.0 - 15.0 % [facility] PLT 249 140 - 400 Thousand/u L [facility] MPV 9.7 7.5 - 12.5 fL [facility] Neutrophils # 4006 1500 - 7800 cells/uL [facility] Lymphocytes # 1881 850 - 3900 cells/uL [facility] Monocytes # 482 200 - 950 cells/uL [facility] Eosinophils # 178 15 - 500 cells/uL [facility] Basophils # 53 0 - 200 cells/uL [facility] Neutrophils % 60.7 % [facility] Lymphocytes % 28.5 % [facility] Monocytes % 7.3 % [facility] Eosinophils % 2.7 % [facility] Basophils % 0.8 % [facility] 04/10/2024 11:0 8 AM EDT 04/10/2024 8:49 PM EDT Narrative Resulting Agency Comment [id number] us Prince Owens MD LAB SAME DAY RESULT Final Result [facility] [address] [place] [address] * (ABNORMAL) COMPREHENSIVE METABOLIC PANEL WITH GFR (04/10/2024 11:08 AM EDT) Glucose 123(H) 65 - 99 mg/dL [facility] Comment: Fasting reference interval For someone without known diabetes, a glucose value between 100 and 125 mg/dL is consistent with prediabetes and should be confirmed with a follow-up test. Urea Nitrogen Blood (BUN) 14 7 - 25 mg/dL [facility] Creatinine 0.85 0.70 - 1.35 mg/dL [facility] EGFR 98 > OR = 60 mL/min/1. 73m2 [facility] BUN/Creatinine Ratio SEE NOTE: 6 - 22 (calc) [facility] Comment: Not Reported: BUN and Creatinine are within reference range. Sodium 141 135 - 146 mmol/L [facility] Potassium 3.9 3.5 - 5.3 mmol/L [facility] Chloride 104 98 - 110 mmol/L [facility] Carbon dioxide 26 20 - 32 mmol/L [facility] Calcium [...] 22 9 - 46 U/L [facility] 04/10/2024 11:0 8 AM EDT 04/10/2024 8:49 PM EDT Narrative [facility] - 04/10/2024 11:53 PM EDT Please note that this estimated [...] needs for GFR calculation. Resulting Agency Comment [id number] Prince Owens MD LABORATORY Final Resu lt Performing Organization Address [facility] Co de Phone Number [facility] [address] [place] [address] * LACTATE DEHYDROGENASE (LDH), SERUM (04/10/2024 11:08 AM EDT) Lactate dehydrogenase 226 120 - 250 U/L [facility] 04/10/2024 11:0 8 AM EDT 04/10/2024 8:49 PM EDT Narrative Resulting Agency Comment [id number] Prince Owens MD LABORATORY Final Resu lt Performing Organization Address [facility] Co de Phone Number [facility] [address] [place] [address] documented in this encounter Visit Diagnoses Diagnosis Malignant neoplasm of urinary bladder, unspecified site (HCC) documented in this encounter Care Teams Senior Commissary Agent Relationship Specialty Start Date End Date Manoj Agudelo I [address] [phone] PCP - General Family Medicine 02/05/18 Prince Owens MD [address] [place] [address] Primary Hem Onc Provider Hematology/Oncology 04/18/25 documented as of this encounter
--- OUTSIDE RECORDS SUMMARY | 2025-07-08 14:31 | XMS_ITS | Encounter Summary ---
Author Organization [facility] Address [address] [place] [address] Care Team Providers Care Criminal Researcher Name Role Phone SantinochristianeManoj I Primary Care Provider [phone] Prince Owens MD Unavailable [phone] Encounter Details Date Type Department Care Team (Late st Contact Info) Description 07/27/2021 Orders Only [facility] Hematology/Oncology [address] [phone] Prince Owens MD [address] [place], [place] [phone] Social History Tobacco Use Types Packs/Day Years Used Date Smoking Tobacco: Never Cigarettes Smokeless Tobacco: Never Sex and Gender Information Value Date Recorded Sex Assigned at Not on file Legal Sex Male 10:51 PM EDT Gender Identity Not on file Sexual Orientation Not on file documented as of this encounter Miscellaneous Notes * Result Encounter Note - Prince Owens MD - 07/27/2021 7:19 AM EDT I hope everything is okay. Your blood count is a little lower than before and your bilirubin a little higher. If you start feeling out of breath I would check sooner or if you start turning yellow. documented in this encounter Plan of Treatment Upcoming Encounters Date Type Department Care Team (Late st Contact Info) Description 07/19/2025 9:00 AM EDT Office Visit [facility] Hematology/Oncology [address] [place] [phone] Prince Owens MD [address] [place] [address] R/S from 8-28 due to mother passing away 11/18/2025 2:00 PM EST Office Visit [facility] Dermatology [address] [place] [phone] Iván Guajardo MD [address] [place], [place] [phone] Return in about 1 year (around 11/18/2025). documented as of this encounter Procedures * Due to [facility] law, this organization might not be sharing negative HIV tests. Procedure Name Priority Date/Time Associated Diagnosis Comments CBC INCLUDES DIFFERENTIAL AND PLATELET COUNT Routine 07/27/2021 7:19 AM EDT Acquired hemolytic anemia VENIPUNCTURE Routine 07/27/2021 7:19 AM EDT Acquired hemolytic anemia COMPREHENSIVE METABOLIC PANEL WITH GFR Routine 07/27/2021 7:19 AM EDT Acquired hemolytic anemia documented in this encounter Results * Due to [facility] law, this organization might not be sharing negative HIV tests. * (ABNORMAL) CBC INCLUDES DIFFERENTIAL AND PLATELET COUNT (07/27/2021 7:19 AM EDT) WBC 5.0 3.8 - 10.8 Thousand/u L [facility] RBC 2.65(L) 4.20 - 5.80 Million/uL [facility] Hemoglobin 8.8(L) 13.2 - 17.1 g/dL [facility] Hematocrit 26.5(L) 38.5 - 50.0 % [facility] MCV 100.0 80.0 - 100.0 fL [facility] MCH 33.2(H) 27.0 - 33.0 pg [facility] MCHC 33.2 32.0 - 36.0 g/dL [facility] RDW 12.8 11.0 - 15.0 % [facility] PLT 185 140 - 400 Thousand/u L [facility] MPV 10.0 7.5 - 12.5 fL [facility] Neutrophils # 3145 1500 - 7800 cells/uL [facility] Lymphocytes # 1230 850 - 3900 cells/uL [facility] Monocytes # 495 200 - 950 cells/uL [facility] Eosinophils # 100 15 - 500 cells/uL [facility] Basophils # 30 0 - 200 cells/uL [facility] Neutrophils % 62.9 % [facility] Lymphocytes % 24.6 % [facility] Monocytes % 9.9 % [facility] Eosinophils % 2.0 % [facility] Basophils % 0.6 % [facility] 07/27/2021 7:19 AM EDT 07/27/2021 9:00 AM EDT Narrative Resulting Agency Comment [id number] Prince Owens MD LAB SAME DAY RESULT Final Result [facility] [address] [place] [address] * (ABNORMAL) COMPREHENSIVE METABOLIC PANEL WITH GFR (07/27/2021 7:19 AM EDT) Glucose 105(H) 65 - 99 mg/dL [facility] Comment: Fasting reference interval For someone without known diabetes, a glucose value between 100 and 125 mg/dL is consistent with prediabetes and should be confirmed with a follow-up test. Urea Nitrogen Blood (BUN) 19 7 - 25 mg/dL [facility] Creatinine 1.20 0.70 - 1.25 mg/dL [facility] Comment: For patients >49 years of age, the reference limit for Creatinine is approximately 13% higher for people identified as -Somali. EGFR 65 > OR = 60 mL/min/1 .73m2 [facility] GFR () 75 > OR = 60 mL/min/1 .73m2 [facility] BUN/Creatinine Ratio NOT APPLICABLE 6 - 22 (calc) [facility] Sodium 140 135 - 146 mmol/L [facility] Potassium 4.1 3.5 - 5.3 mmol/L [facility] Chloride 107 98 - 110 mmol/L [facility] Carbon dioxide 25 20 - 32 mmol/L [facility] Calcium 8.9 8.6 - 10.3 mg/dL [facility] Protein Total (Serum) 6.9 6.1 - 8.1 g/dL [facility] Albumin 4.8 3.6 - 5.1 g/dL [facility] Globulin 2.1 1.9 - 3.7 g/dL (calc) [facility] Albumin/Globulin 2.3 1.0 - 2.5 (calc) [facility] Bilirubin Total 7.0(H) 0.2 - 1.2 mg/dL [facility] Alkaline phosphatase 46 35 - 144 U/L [facility] AST (SGOT) 16 10 - 35 U/L [facility] ALT (SGPT) 15 9 - 46 U/L [facility] 07/27/2021 7:19 AM EDT 07/27/2021 9:00 AM EDT Narrative [facility] - 07/27/2021 1:56 PM EDT Please note that this estimated [...] needs for GFR calculation. Resulting Agency Comment [id number] Prince Owens MD LABORATORY Final Resu lt Performing Organization Address City/[facility]/ZIP Co de Phone Number [facility] [address] [place] [address] * LACTATE DEHYDROGENASE (LDH), SERUM (07/27/2021 7:19 AM EDT) Lactate dehydrogenase 195 120 - 250 U/L [facility] 07/27/2021 7:19 AM EDT 07/27/2021 9:00 AM EDT Narrative Resulting Agency Comment [id number] Prince Owens MD LABORATORY Final Resu lt Performing Organization Address City/[facility]/ZIP Co de Phone Number [facility] [address] [place] [address] documented in this encounter Visit Diagnoses Diagnosis Acquired hemolytic anemia (HCC) Acquired hemolytic anemia, unspecified documented in this encounter Care Teams Criminal Researcher Relationship Specialty Start Date End Date Manoj Agudelo I [address] [phone] PCP - General Family Medicine 02/05/18 Prince Owens MD [address] [place] [address] Primary Hem Onc Provider Hematology/Oncology 04/18/25 documented as of this encounter
--- OUTSIDE RECORDS SUMMARY | 2025-07-08 14:31 | XMS_ITS | Encounter Summary ---
Author Organization [facility] Address [address] [place] [address] Care Team Providers Care Fish Cleaner Machine Tender Name Role Phone Manoj Agudelo I Primary Care Provider [phone]- [phone] Prince Owens MD Unavailable [phone] Encounter Details Date Type Department Care Team (Late st Contact Info) Description 02/07/2024 Orders Only [facility] Hematology/Oncology [address] [place] [phone] Prince Owens MD [address] [place] [address] Social History Tobacco Use Types Packs/Day Years [...] Encounter Note - Prince Owens MD - 02/07/2024 10:45 AM EDT Notified patient of results via Outsmartt message. documented in this encounter Plan of Treatment Upcoming Encounters Date Type Department Care Team (Late st Contact Info) Description 07/19/2025 9:00 AM EDT Office Visit [facility] Hematology/Oncology [address] [place] [address] Prince Owens MD 5 [place] [address] R/S from 06-30 due to mother passing away 11/18/2025 2:00 PM EST Office Visit [facility] Dermatology 5 [place] [phone] Iván Guajardo MD [address] [place], [place] [phone] Return in about 1 year (around 11/18/2025). documented as of this encounter Procedures * Due to [place] [employer] law, this organization might not be sharing negative HIV tests. Procedure Name Priority Date/Time Associated Diagnosis Comments CBC INCLUDES DIFFERENTIAL AND PLATELET COUNT Routine 02/07/2024 10:45 AM EDT Malignant neoplasm of urinary bladder, unspecified site LACTATE DEHYDROGENASE (LDH), SERUM Routine 02/07/2024 10:45 AM EDT Malignant neoplasm of urinary bladder, unspecified site COMPREHENSIVE METABOLIC PANEL WITH GFR Routine 02/07/2024 10:45 AM EDT Malignant neoplasm of urinary bladder, unspecified site documented in this encounter Results * Due to [place] [employer] law, this organization might not be sharing negative HIV tests. * (ABNORMAL) CBC INCLUDES DIFFERENTIAL AND PLATELET COUNT (02/07/2024 10:45 AM EDT) WBC 5.4 3.8 - 10.8 Thousand/u L [facility] RBC 2.92(L) 4.20 - 5.80 Million/uL [facility] Hemoglobin 9.3(L) 13.2 - 17.1 g/dL [facility] Hematocrit 28.8(L) 38.5 - 50.0 % [facility] MCV 98.6 80.0 - 100.0 fL [facility] MCH 31.8 27.0 - 33.0 pg [facility] MCHC 32.3 32.0 - 36.0 g/dL [facility] RDW 13.0 11.0 - 15.0 % [facility] PLT 241 140 - 400 Thousand/u L [facility] MPV 10.7 7.5 - 12.5 fL [facility] Neutrophils # 2992 1500 - 7800 cells/uL [facility] Lymphocytes # 1825 850 - 3900 cells/uL [facility] Monocytes # 351 200 - 950 cells/uL [facility] Eosinophils # 200 15 - 500 cells/uL [facility] Basophils # 32 0 - 200 cells/uL [facility] Neutrophils % 55.4 % [facility] Lymphocytes % 33.8 % [facility] Monocytes % 6.5 % [facility] Eosinophils % 3.7 % [facility] Basophils % 0.6 % [facility] 02/07/2024 10:4 5 AM EDT 02/07/2024 10:48 PM EDT Narrative Resulting Agency Comment [id number] us Prince Owens MD LAB SAME DAY RESULT Final Result [facility] [address] [place] [address] * (ABNORMAL) COMPREHENSIVE METABOLIC PANEL WITH GFR (02/07/2024 10:45 AM EDT) Glucose 112(H) 65 - 99 mg/dL [facility] [...] and Creatinine are within reference range. Sodium 144 135 - 146 mmol/L [facility] Potassium 4.4 3.5 - 5.3 mmol/L [facility] Chloride 109 98 - 110 mmol/L [facility] Carbon dioxide 21 20 - 32 mmol/L [facility] Calcium 9.6 8.6 - 10.3 mg/dL [facility] Protein Total (Serum) 7.1 6.1 - 8.1 g/dL [facility] Albumin 5.1 3.6 - 5.1 g/dL [facility] Globulin 2.0 1.9 - 3.7 g/dL (calc) [facility] Albumin/Globuli n 2.6(H) 1.0 - 2.5 (calc) [facility] Bilirubin Total 4.0(H) 0.2 - 1.2 mg/dL [facility] Alkaline phosphatase 49 35 - 144 U/L [facility] AST (SGOT) 20 10 - 35 U/L [facility] ALT (SGPT) 17 9 - 46 U/L [facility] 02/07/2024 10:4 5 AM EDT 02/07/2024 10:48 PM EDT Narrative [facility] - 02/08/2024 6:39 AM EDT Please note that this estimated [...] needs for GFR calculation. Resulting Agency Comment [id number] Prince Owens MD LABORATORY Final Resu lt Performing Organization Address [facility] Co de Phone Number [facility] [address] [place] [address] * (ABNORMAL) LACTATE DEHYDROGENASE (LDH), SERUM (02/07/2024 10:45 AM EDT) Lactate dehydrogenase 262(H) 120 - 250 U/L [facility] Comment:Results slightly inc reased due to hemolysis. 02/07/2024 10:4 5 AM EDT 02/07/2024 10:48 PM EDT Narrative Resulting Agency Comment [id number] Prince Owens MD LABORATORY Final Resu lt Performing Organization Address [facility] Co de Phone Number [facility] [address] [place] [address] documented in this encounter Visit Diagnoses Diagnosis Malignant neoplasm of urinary bladder, unspecified site (HCC) documented in this encounter Care Teams Fish Cleaner Machine Tender Relationship Specialty Start Date End Date Manoj Agudelo I [place] [address] [place] [address] PCP - General Family Medicine 02/05/18 Prince Owens MD [address] [place] [address] Primary Hem Onc Provider Hematology/Oncology 04/18/25 documented as of this encounter
--- OUTSIDE RECORDS SUMMARY | 2025-07-08 14:31 | XMS_ITS | Encounter Summary ---
Author Organization [facility] Address [address] [place] [address] Care Team Providers Care Rotary Drier Feeder Name Role Phone Manoj Agudelo I Primary Care Provider [phone] Prince Owens MD Unavailable [phone] Encounter Details Date Type Department Care Team ([facility] Contact Info) Description 02/23/2024 Orders Only [facility] Hematology/Oncology [address] [place] [phone] Prince Owens MD [address] [place] [phone] Social History Tobacco Use Types Packs/Day Years [...] Upcoming Encounters Date Type Department Care Team ([facility] Contact Info) Description 07/19/2025 9:00 AM EDT Office Visit [facility] Hematology/Oncology [address] [place] [phone] Prince Owens MD [address] [place] [address] R/S from 8-28 due to mother passing away 11/18/2025 2:00 PM EST Office Visit [facility] Dermatology [address] [place] [phone] Iván Guajardo MD [address] [place] [address] Return in about 1 year (around 11/18/2025). documented as of this encounter Procedures * Due to [facility] law, this organization might not be sharing negative HIV tests. Procedure Name Priority Date/Time Associated Diagnosis Comments CBC INCLUDES DIFFERENTIAL AND PLATELET COUNT Routine 02/23/2024 9:01 AM EDT Malignant neoplasm of urinary bladder, unspecified site LACTATE DEHYDROGENASE (LDH), SERUM Routine 02/23/2024 9:01 AM EDT Malignant neoplasm of urinary bladder, unspecified site COMPREHENSIVE METABOLIC PANEL WITH GFR Routine 02/23/2024 9:01 AM EDT Malignant neoplasm of urinary bladder, unspecified site documented in this encounter Results * Due to [facility] law, this organization might not be sharing negative HIV tests. * (ABNORMAL) CBC INCLUDES DIFFERENTIAL AND PLATELET COUNT (02/23/2024 9:01 AM EDT) WBC 8.2 3.8 - 10.8 Thousand/u L [facility] RBC 2.17(L) 4.20 - 5.80 Million/uL [facility] Hemoglobin 6.7(L) 13.2 - 17.1 g/dL [facility] Hematocrit 22.2(L) 38.5 - 50.0 % [facility] MCV 102.3(H) 80.0 - 100.0 fL [facility] MCH 30.9 27.0 - 33.0 pg [facility] MCHC 30.2(L) 32.0 - 36.0 g/dL [facility] RDW 14.2 11.0 - 15.0 % [facility] PLT 267 140 - 400 Thousand/u L [facility] MPV 10.2 7.5 - 12.5 fL [facility] Neutrophils # 4682 1500 - 7800 cells/uL [facility] Lymphocytes # 2796 850 - 3900 cells/uL [facility] Monocytes # 476 200 - 950 cells/uL [facility] Eosinophils # 213 15 - 500 cells/uL [facility] Basophils # 33 0 - 200 cells/uL [facility] Neutrophils % 57.1 % [facility] Lymphocytes % 34.1 % [facility] Monocytes % 5.8 % [facility] Eosinophils % 2.6 % [facility] Basophils % 0.4 % [facility] CBC Morphology SEE NOTE NORMAL [facility] Comment: Anisocytosis 1 + Macrocytosis 1 + Polychromasia 1 + 02/23/2024 9:01 AM EDT 02/23/2024 10:46 AM EDT Narrative Resulting Agency Comment [id number] us Prince Owens MD LAB SAME DAY RESULT Final Result [facility] [address] [place] [address] * (ABNORMAL) COMPREHENSIVE METABOLIC PANEL WITH GFR (02/23/2024 9:01 AM EDT) Glucose 123(H) 65 - 99 mg/dL [facility] Comment: Fasting reference interval For someone without known diabetes, a glucose value between 100 and 125 mg/dL is consistent with prediabetes and should be confirmed with a follow-up test. Urea Nitrogen Blood (BUN) 16 7 - 25 mg/dL [facility] Creatinine 1.00 0.70 - 1.35 mg/dL [facility] EGFR 85 > OR = 60 mL/min/1. 73m2 [facility] BUN/Creatinine Ratio SEE NOTE: 6 22 (calc) [facility] Comment: Not Reported: BUN and Creatinine are within reference range. Sodium 143 135 - 146 mmol/L [facility] Potassium 3.8 3.5 - 5.3 mmol/L [facility] Chloride 104 98 - 110 mmol/L [facility] Carbon dioxide 30 20 - 32 mmol/L [facility] Calcium 9.4 8.6 - 10.3 mg/dL [facility] Protein Total (Serum) 7.0 6.1 - 8.1 g/dL [facility] Albumin 4.6 3.6 - 5.1 g/dL [facility] Globulin 2.4 1.9 - 3.7 g/dL (calc) [facility] Albumin/Globuli n 1.9 1.0 - 2.5 (calc) [facility] Bilirubin Total 2.6(H) 0.2 - 1.2 mg/dL [facility] Alkaline phosphatase 55 35 - 144 U/L [facility] AST (SGOT) 15 10 - 35 U/L [facility] ALT (SGPT) 19 9 - 46 U/L [facility] 02/23/2024 9:01 AM EDT 02/23/2024 10:46 AM EDT Narrative [facility] - 02/23/2024 10:48 PM EDT Please note that this estimated [...] needs for GFR calculation. Resulting Agency Comment [id number] Prince Owens MD LABORATORY Final Resu lt Performing Organization Address [facility]/ZIP Co de Phone Number [facility] [address] [place] [address] * (ABNORMAL) LACTATE DEHYDROGENASE (LDH), SERUM (02/23/2024 9:01 AM EDT) Lactate dehydrogenase 252(H) 120 - 250 U/L [facility] 02/23/2024 9:01 AM EDT 02/23/2024 10:46 AM EDT Narrative Resulting Agency Comment [id number] Prince Owens MD LABORATORY Final Resu lt Performing Organization Address [facility] Co de Phone Number [facility] [address] [place] [address] documented in this encounter Visit Diagnoses Diagnosis Malignant neoplasm of urinary bladder, unspecified site (HCC) documented in this encounter Care Teams Rotary Drier Feeder Relationship Specialty Start Date End Date Manoj Agudelo I [address] [address] PCP - General Family Medicine 02/05/18 Prince Owens MD [address] [place] [address] Primary Hem Onc Provider Hematology/Oncology 04/18/25 documented as of this encounter
--- OUTSIDE RECORDS SUMMARY | 2025-07-08 14:31 | XMS_ITS | Encounter Summary ---
Author Organization [facility] Address [address] [place] [address] Care Team Providers Care Environmental Designer Name Role Phone Manoj Agudelo I Primary Care Provider [phone] Prince Owens MD Unavailable [phone] Encounter Details Date Type Department Care Team ([facility] Contact Info) Description 12/26/2023 Orders Only [facility] Hematology/Oncology [address] [place] [phone] Prince Owens MD [address] [place] [address] Social History Tobacco Use Types Packs/Day Years [...] Upcoming Encounters Date Type Department Care Team ([facility] Contact Info) Description 07/19/2025 9:00 AM EDT Office Visit [facility] Hematology/Oncology [address] [place] [phone] Prince Owens MD [address] [place] [address] R/S from 8-28 due to mother passing away 11/18/2025 2:00 PM EST Office Visit [facility] Dermatology [address] [place] [phone] Iván Guajardo MD [address] [place] [address] Return in about 1 year (around 11/18/2025). documented as of this encounter Procedures * Due to [place] [employer] law, this organization might not be sharing negative HIV tests. Procedure Name Priority Date/Time Associated Diagnosis Comments CBC INCLUDES DIFFERENTIAL AND PLATELET COUNT Routine 12/26/2023 2:02 PM EST Malignant neoplasm of urinary bladder, unspecified site LACTATE DEHYDROGENASE (LDH), SERUM Routine 12/26/2023 2:02 PM EST Malignant neoplasm of urinary bladder, unspecified site COMPREHENSIVE METABOLIC PANEL WITH GFR Routine 12/26/2023 2:02 PM EST Malignant neoplasm of urinary bladder, unspecified site documented in this encounter Results * Due to [place] [employer] law, this organization might not be sharing negative HIV tests. * (ABNORMAL) COMPREHENSIVE METABOLIC PANEL WITH GFR (12/26/2023 2:02 PM EST) Glucose 158(H) 65 - 99 mg/dL [facility] Comment: [...] - 2.5 (calc) [facility] Bilirubin Total 4.8(H) 0.2 - 1.2 mg/dL [facility] Alkaline phosphatase 50 35 - 144 U/L [facility] AST (SGOT) 14 10 - 35 U/L [facility] ALT (SGPT) 17 9 - 46 U/L [facility] 12/26/2023 2:02 PM EST 12/27/2023 1:06 AM EST Narrative [facility] - 12/27/2023 5:27 AM EST Please note that this estimated [...] needs for GFR calculation. Resulting Agency Comment [id number] Prince Owens MD LABORATORY Final Resu lt [facility] [address] [place] [address] * (ABNORMAL) CBC INCLUDES DIFFERENTIAL AND PLATELET COUNT (12/26/2023 2:02 PM EST) WBC 5.1 3.8 - 10.8 Thousand/u L [facility] RBC 3.12(L) 4.20 - 5.80 Million/uL [facility] Hemoglobin 9.9(L) 13.2 - 17.1 g/dL [facility] Hematocrit 30.6(L) 38.5 - 50.0 % [facility] MCV 98.1 80.0 - 100.0 fL [facility] MCH 31.7 27.0 - 33.0 pg [facility] MCHC 32.4 32.0 - 36.0 g/dL [facility] RDW 12.1 11.0 - 15.0 % [facility] PLT 214 140 - 400 Thousand/u L [facility] MPV 10.2 7.5 - 12.5 fL [facility] Neutrophils # 2683 1500 - 7800 cells/uL [facility] Lymphocytes # 1841 850 - 3900 cells/uL [facility] Monocytes # 362 200 - 950 cells/uL [facility] Eosinophils # 184 15 - 500 cells/uL [facility] Basophils # 31 0 - 200 cells/uL [facility] Neutrophils % 52.6 % [facility] Lymphocytes % 36.1 % [facility] Monocytes % 7.1 % [facility] Eosinophils % 3.6 % [facility] Basophils % 0.6 % [facility] 12/26/2023 2:02 PM EST 12/27/2023 1:06 AM EST Narrative Resulting Agency Comment [id number] Prince Owens MD LAB SAME DAY RESULT Final Result Performing Organization Address City/[facility]/ZIP Co de Phone Number [facility] [address] [place] [address] * LACTATE DEHYDROGENASE (LDH), SERUM (12/26/2023 2:02 PM EST) Lactate dehydrogenase 171 120 - 250 U/L [facility] 12/26/2023 2:02 PM EST 12/27/2023 1:06 AM EST Narrative Resulting Agency Comment [id number] Prince Owens MD LABORATORY Final Resu lt Performing Organization Address City/[facility]/ZIP Co de Phone Number [facility] [address] [place] [address] documented in this encounter Visit Diagnoses Diagnosis Malignant neoplasm of urinary bladder, unspecified site (HCC) documented in this encounter Care Teams Environmental Designer Relationship Specialty Start Date End Date Manoj Agudelo I [address] [address] PCP - General Family Medicine 02/05/18 Prince Owens MD [address] [place] [address] Primary Hem Onc Provider Hematology/Oncology 04/18/25 documented as of this encounter
--- OUTSIDE RECORDS SUMMARY | 2025-07-08 14:31 | XMS_ITS | Encounter Summary ---
Author Organization [facility] Address [address] [place] [address] Care Team Providers Care Access Clinician Name Role Phone Manoj Agudelo I Primary Care Provider [phone] Prince Owens MD Unavailable [phone] Encounter Details Date Type Department Care Team (Late Contact Info) Description 08/16/2021 Orders Only [facility] Hematology/Oncology [address] [phone] Prince Owens MD [address] [place] [phone] Social History Tobacco Use Types Packs/Day Years [...] EDT Office Visit [facility] Hematology/Oncology [address] [place] [phone] Prince Owens MD [address] [place] [phone] R/S from 8-28 due to mother passing away 11/18/2025 2:00 PM EST Office Visit [facility] Dermatology [address] [place] [phone] Iván Guajardo MD [address] [place] [address] Return in about 1 year (around 11/18/2025). documented as of this encounter Procedures * Due to [facility] law, this organization might not be sharing negative HIV tests. Procedure Name Priority Date/Time Associated Diagnosis Comments CBC INCLUDES DIFFERENTIAL AND PLATELET COUNT Routine 08/16/2021 7:21 AM EDT Acquired hemolytic anemia VENIPUNCTURE Routine 08/16/2021 7:21 AM EDT Acquired hemolytic anemia COMPREHENSIVE METABOLIC PANEL WITH GFR Routine 08/16/2021 7:21 AM EDT Acquired hemolytic anemia documented in this encounter Results * Due to [place] [employer] law, this organization might not be sharing negative HIV tests. * (ABNORMAL) CBC INCLUDES DIFFERENTIAL AND PLATELET COUNT (08/16/2021 7:21 AM EDT) WBC 4.8 3.8 - 10.8 Thousand/u L [facility] RBC 2.91(L) 4.20 - 5.80 Million/uL [facility] Hemoglobin 9.7(L) 13.2 - 17.1 g/dL [facility] Hematocrit 30.0(L) 38.5 - 50.0 % [facility] MCV 103.1(H) 80.0 - 100.0 fL [facility] MCH 33.3(H) 27.0 - 33.0 pg [facility] MCHC 32.3 32.0 - 36.0 g/dL [facility] RDW 12.8 11.0 - 15.0 % [facility] PLT 225 140 - 400 Thousand/u L [facility] MPV 9.9 7.5 - 12.5 fL [facility] Neutrophils # 2357 1500 - 7800 cells/uL [facility] Lymphocytes # 1901 850 - 3900 cells/uL [facility] Monocytes # 326 200 - 950 cells/uL [facility] Eosinophils # 178 15 - 500 cells/uL [facility] Basophils # 38 0 - 200 cells/uL [facility] Neutrophils % 49.1 % [facility] Lymphocytes % 39.6 % [facility] Monocytes % 6.8 % [facility] Eosinophils % 3.7 % [facility] Basophils % 0.8 % [facility] 08/16/2021 7:21 AM EDT 08/16/2021 9:45 AM EDT Narrative Resulting Agency Comment [id number] Prince Owens MD LAB SAME DAY RESULT Final Result Performing Organization Address City/State/[facility] Co de Phone Number [facility] [address] [place] [address] * (ABNORMAL) COMPREHENSIVE METABOLIC PANEL WITH GFR (08/16/2021 7:21 AM EDT) Glucose 79 65 - 99 mg/dL [facility] Comment:Fasting reference in terval Urea Nitrogen Blood (BUN) 14 7 - 25 mg/dL [facility] Creatinine 1.05 0.70 - 1.25 mg/dL [facility] Comment: For patients >49 years of age, the reference limit for Creatinine is approximately 13% higher for people identified as -[place]. EGFR 76 > OR = 60 mL/min/1 .73m2 [facility] GFR () 88 > OR = 60 mL/min/1 .73m2 [facility] BUN/Creatinine Ratio NOT APPLICABLE 6 - 22 (calc) [facility] Sodium 143 135 - 146 mmol/L [facility] [...] - 3.7 g/dL (calc) [facility] Albumin/Globulin 2.2 1.0 - 2.5 (calc) [facility] Bilirubin Total 3.2(H) 0.2 - 1.2 mg/dL [facility] Alkaline phosphatase 49 35 - 144 U/L [facility] AST (SGOT) 15 10 - 35 U/L [facility] ALT (SGPT) 16 9 - 46 U/L [facility] 08/16/2021 7:21 AM EDT 08/16/2021 9:45 AM EDT Narrative [facility] - 08/16/2021 3:24 PM EDT Please note that this estimated [...] needs for GFR calculation. Resulting Agency Comment [id number] Prince Owens MD LABORATORY Final Resu lt Performing Organization Address City/[facility]/ZIP Co de Phone Number [facility] [address] [place] [address] * LACTATE DEHYDROGENASE (LDH), SERUM (08/16/2021 7:21 AM EDT) Lactate dehydrogenase 173 120 - 250 U/L [facility] 08/16/2021 7:21 AM EDT 08/16/2021 9:45 AM EDT Narrative Resulting Agency Comment [id number] Prince Owens MD LABORATORY Final Resu lt Performing Organization Address [facility] Co de Phone Number [facility] [address] [place] [address] documented in this encounter Visit Diagnoses Diagnosis Acquired hemolytic anemia (HCC) Acquired hemolytic anemia, unspecified documented in this encounter Care Teams Access Clinician Relationship Specialty Start Date End Date Manoj Agudelo I [place] [address] [address] [place] [phone] PCP - General Family Medicine 02/05/18 Prince Owens MD [address] [place] [address] Primary Hem Onc Provider Hematology/Oncology 04/18/25 documented as of this encounter
--- OUTSIDE RECORDS SUMMARY | 2025-07-08 14:31 | XMS_ITS | Encounter Summary ---
Author Organization [facility] Address [address] [place] [address] Care Team Providers Care Gm Video Name Role Phone SantinochristianeManoj I Primary Care Provider [phone]- [phone] Prince Owens MD Unavailable [phone] Encounter Details Date Type Department Care Team ([facility] Contact Info) Description 12/04/2020 Orders Only [facility] Hematology/Oncology [address] [phone] Prince Owens MD [address] [place] [address] Social History Tobacco Use Types Packs/Day Years Used Date Smoking Tobacco: Never Cigarettes Smokeless Tobacco: Never Sex and Gender Information Value Date Recorded Sex Assigned at Not on file Legal Sex Male 10:51 PM EDT Gender Identity Not on file Sexual Orientation Not on file documented as of this encounter Progress Notes * Prince Owens MD - 12/04/2020 7:27 AM EST Labs look good, stay warm documented in this encounter Plan of Treatment Upcoming Encounters Date Type Department Care Team (Late Contact Info) Description 07/19/2025 9:00 AM EDT Office Visit [facility] Hematology/Oncology [address] [place] [phone] Prince Owens MD [address] [place] [address] R/S from 8-28 due to mother passing away 11/18/2025 2:00 PM EST Office Visit [facility] Dermatology [address] [place] [address] Iván Guajardo MD [address] [place] [address] Return in about 1 year (around 11/18/2025). documented as of this encounter Procedures * Due to [facility] law, this organization might not be sharing negative HIV tests. Procedure Name Priority Date/Time Associated Diagnosis Comments CBC INCLUDES DIFFERENTIAL AND PLATELET COUNT Routine 12/04/2020 7:27 AM EST Acquired hemolytic anemia VENIPUNCTURE Routine 12/04/2020 7:27 AM EST Acquired hemolytic anemia COMPREHENSIVE METABOLIC PANEL WITH GFR Routine 12/04/2020 7:27 AM EST Acquired hemolytic anemia documented in this encounter Results * Due to [place] law, this organization might not be sharing negative HIV tests. * (ABNORMAL) COMPREHENSIVE METABOLIC PANEL WITH GFR (12/04/2020 7:27 AM EST) Glucose 165(H) 65 - 99 mg/dL [facility] Comment: Fasting reference interval For someone without known diabetes, a glucose value >125 mg/dL indicates that they may have diabetes and this should be confirmed with a follow-up test. Urea Nitrogen Blood (BUN) 19 7 - 25 mg/dL [facility] Creatinine 1.02 0.70 - 1.25 mg/dL [facility] Comment: For patients >49 years of age, the reference limit for Creatinine is approximately 13% higher for people identified as -Indonesian. EGFR 80 > OR = 60 mL/min/1 .73m2 [facility] GFR () 92 > OR = 60 mL/min/1 .73m2 [facility] BUN/Creatinine Ratio NOT APPLICABLE 6 - 22 (calc) [facility] Sodium 142 135 - 146 mmol/L [facility] Potassium 4.1 3.5 - 5.3 mmol/L [facility] Chloride 108 98 - 110 mmol/L [facility] Carbon dioxide 28 20 - 32 mmol/L [facility] Calcium 9.1 8.6 - 10.3 mg/dL [facility] Protein Total (Serum) 6.9 6.1 - 8.1 g/dL [facility] Albumin 4.8 3.6 - 5.1 g/dL [facility] Globulin 2.1 1.9 - 3.7 g/dL (calc) [facility] Albumin/Globulin 2.3 1.0 - 2.5 (calc) [facility] Bilirubin Total 3.0(H) 0.2 - 1.2 mg/dL [facility] Alkaline phosphatase 50 35 - 144 U/L [facility] AST (SGOT) 12 10 - 35 U/L [facility] ALT (SGPT) 15 9 - 46 U/L [facility] 12/04/2020 7:27 AM EST 12/04/2020 9:20 AM EST Narrative [facility] - 12/04/2020 1:12 PM EST Please note that this estimated [...] needs for GFR calculation. Resulting Agency Comment [id number] us Prince Owens MD LABORATORY Final Resu lt [facility] [address] [place] [address] * (ABNORMAL) CBC INCLUDES DIFFERENTIAL AND PLATELET COUNT (12/04/2020 7:27 AM EST) WBC 5.6 3.8 - 10.8 Thousand/u L [facility] RBC 3.15(L) 4.20 - 5.80 Million/uL [facility] Hemoglobin 10.5(L) 13.2 - 17.1 g/dL [facility] Hematocrit 31.0(L) 38.5 - 50.0 % [facility] MCV 98.4 80.0 - 100.0 fL [facility] MCH 33.3(H) 27.0 - 33.0 pg [facility] MCHC 33.9 32.0 - 36.0 g/dL [facility] RDW 13.1 11.0 - 15.0 % [facility] PLT 221 140 - 400 Thousand/u L [facility] MPV 9.9 7.5 - 12.5 fL [facility] Neutrophils # 2867 1500 - 7800 cells/uL [facility] Lymphocytes # 2122 850 - 3900 cells/uL [facility] Monocytes # 353 200 - 950 cells/uL [facility] Eosinophils # 218 15 - 500 cells/uL [facility] Basophils # 39 0 - 200 cells/uL [facility] Neutrophils % 51.2 % [facility] Lymphocytes % 37.9 % [facility] Monocytes % 6.3 % [facility] Eosinophils % 3.9 % [facility] Basophils % 0.7 % [facility] 12/04/2020 7:27 AM EST 12/04/2020 9:20 AM EST Narrative Resulting Agency Comment [id number] Prince Owens MD LAB SAME DAY RESULT Final Result Performing Organization Address City/[facility] Co de Phone Number [facility] [address] [place] [address] * LACTATE DEHYDROGENASE (LDH), SERUM (12/04/2020 7:27 AM EST) Lactate dehydrogenase 157 120 - 250 U/L [facility] 12/04/2020 7:27 AM EST 12/04/2020 9:20 AM EST Narrative Resulting Agency Comment [id number] Prince Owens MD LABORATORY Final Resu lt Performing Organization Address City/[facility] de Phone Number [facility] [address] [place] [address] documented in this encounter Visit Diagnoses Diagnosis Acquired hemolytic anemia (HCC) Acquired hemolytic anemia, unspecified documented in this encounter Care Teams Gm Video Relationship Specialty Start Date End Date Manoj Agudelo I [address] [phone] PCP - General Family Medicine 02/05/18 Prince Owens MD [address] [place] [address] Primary Hem Onc Provider Hematology/Oncology 04/18/25 documented as of this encounter
--- OUTSIDE RECORDS SUMMARY | 2025-07-08 14:31 | XMS_ITS | Encounter Summary ---
Author Organization [facility] Address [address] [place] [address] Care Team Providers Care Janitor Head Name Role Phone Manoj Agudelo I Primary Care Provider [phone] Prince Owens MD Unavailable [phone] Encounter Details Date Type Department Care Team ([facility] Contact Info) Description 01/24/2024 Orders Only [facility] Hematology/Oncology [address] [place] [phone] Prince Owens MD [address] [place] [address] Social History Tobacco Use Types Packs/Day Years [...] Upcoming Encounters Date Type Department Care Team ([facility] Contact Info) Description 07/19/2025 9:00 AM EDT Office Visit [facility] Hematology/Oncology [address] [place] [phone] Prince Owens MD [address] [place] [address] R/S from 8-28 due to mother passing away 11/18/2025 2:00 PM EST Office Visit [facility] Dermatology [address] [place] [phone] Iván Guajardo MD [address] [place] [address] Return in about 1 year (around 11/18/2025). documented as of this encounter Procedures * Due to [facility] law, this organization might not be sharing negative HIV tests. Procedure Name Priority Date/Time Associated Diagnosis Comments CBC INCLUDES DIFFERENTIAL AND PLATELET COUNT Routine 01/24/2024 12:18 PM EDT Malignant neoplasm of urinary bladder, unspecified site LACTATE DEHYDROGENASE (LDH), SERUM Routine 01/24/2024 12:18 PM EDT Malignant neoplasm of urinary bladder, unspecified site COMPREHENSIVE METABOLIC PANEL WITH GFR Routine 01/24/2024 12:18 PM EDT Malignant neoplasm of urinary bladder, unspecified site documented in this encounter Results * Due to [facility] law, this organization might not be sharing negative HIV tests. * (ABNORMAL) CBC INCLUDES DIFFERENTIAL AND PLATELET COUNT (01/24/2024 12:18 PM EDT) WBC 4.9 3.8 - 10.8 Thousand/u L [facility] RBC 3.07(L) 4.20 - 5.80 Million/uL [facility] Hemoglobin 9.9(L) 13.2 - 17.1 g/dL [facility] Hematocrit 29.6(L) 38.5 - 50.0 % [facility] MCV 96.4 80.0 - 100.0 fL [facility] MCH 32.2 27.0 - 33.0 pg [facility] MCHC 33.4 32.0 - 36.0 g/dL [facility] RDW 12.6 11.0 - 15.0 % [facility] PLT 213 140 - 400 Thousand/u L [facility] MPV 9.9 7.5 - 12.5 fL [facility] Neutrophils # 2626 1500 - 7800 cells/uL [facility] Lymphocytes # 1612 850 - 3900 cells/uL [facility] Monocytes # 372 200 - 950 cells/uL [facility] Eosinophils # 260 15 - 500 cells/uL [facility] Basophils # 29 0 - 200 cells/uL [facility] Neutrophils % 53.6 % [facility] Lymphocytes % 32.9 % [facility] Monocytes % 7.6 % [facility] Eosinophils % 5.3 % [facility] Basophils % 0.6 % [facility] 01/24/2024 12:1 8 PM EDT 01/24/2024 10:04 PM EDT Narrative Resulting Agency Comment [id number] us Prince Owens MD LAB SAME DAY RESULT Final Result [facility] [address] [place] [address] * (ABNORMAL) COMPREHENSIVE METABOLIC PANEL WITH GFR (01/24/2024 12:18 PM EDT) Glucose 143(H) 65 - 99 mg/dL [facility] Comment: [...] - 2.5 (calc) [facility] Bilirubin Total 4.9(H) 0.2 - 1.2 mg/dL [facility] Alkaline phosphatase 48 35 - 144 U/L [facility] AST (SGOT) 15 10 - 35 U/L [facility] ALT (SGPT) 17 9 - 46 U/L [facility] 01/24/2024 12:1 8 PM EDT 01/24/2024 10:04 PM EDT Narrative [facility] - 01/25/2024 12:23 AM EDT Please note that this estimated [...] needs for GFR calculation. Resulting Agency Comment [id number] Prince Owens MD LABORATORY Final Resu lt Performing Organization Address [facility] Co de Phone Number [facility] [address] [place] [address] * LACTATE DEHYDROGENASE (LDH), SERUM (01/24/2024 12:18 PM EDT) Lactate dehydrogenase 200 120 - 250 U/L [facility] 01/24/2024 12:1 8 PM EDT 01/24/2024 10:04 PM EDT Narrative Resulting Agency Comment [id number] Prince Owens MD LABORATORY Final Resu lt Performing Organization Address [facility] Co de Phone Number [facility] [address] [place] [address] documented in this encounter Visit Diagnoses Diagnosis Malignant neoplasm of urinary bladder, unspecified site (HCC) documented in this encounter Care Teams Janitor Head Relationship Specialty Start Date End Date Manoj Agudelo I [address] [phone] PCP - General Family Medicine 02/05/18 Prince Owens MD [address] [place] [address] Primary Hem Onc Provider Hematology/Oncology 04/18/25 documented as of this encounter
--- OUTSIDE RECORDS SUMMARY | 2025-07-08 14:31 | XMS_ITS | Encounter Summary ---
Author Organization [facility] Address [address] [place] [address] Care Team Providers Care Dump Grader Name Role Phone SantinochristianeManoj I Primary Care Provider [phone] Prince Owens MD Unavailable [phone] Encounter Details Date Type Department Care Team (Late Contact Info) Description 06/14/2024 Orders Only [facility] Hematology/Oncology [address] [place] [phone] La Nena Welch, RN [address] [place] [address] Social History Tobacco Use Types Packs/Day Years [...] Office Visit [facility] Hematology/Oncology [address] [place] [phone] Prince Owens MD [address] [place] [phone] R/S from 8- due to mother passing away 11/18/2025 2:00 PM EST Office Visit [facility] Dermatology [address] [place] [phone] Iván Guajardo MD [address] [place] [address] Return in about 1 year (around 11/18/2025). documented as of this encounter Visit Diagnoses Diagnosis Acquired hemolytic anemia (HCC)- Primary Acquired hemolytic anemia, unspecified documented in this encounter Care Teams Dump Grader Relationship Specialty Start Date End Date Manoj Agudelo I [place] [address] [place] [phone] PCP - General Family Medicine 02/05/18 Prince Owens MD [address] [place] [address] Primary Hem Onc Provider Hematology/Oncology 04/18/25 documented as of this encounter
--- OUTSIDE RECORDS SUMMARY | 2025-07-08 14:31 | XMS_ITS | Encounter Summary ---
Author Organization [facility] Address [address] [place] [address] Care Team Providers Care Fancy Wire Drawer Name Role Phone Manoj Agudelo I Primary Care Provider [phone] Prince Owens MD Unavailable [phone] Encounter Details Date Type Department Care Team (Late Contact Info) Description 09/15/2021 Orders Only [facility] Hematology/Oncology [address] [phone] Prince Owens MD [address] [place] [address] Social History Tobacco Use Types Packs/Day Years [...] EDT Office Visit [facility] Hematology/Oncology [address] [place] [phone] Prince Owens MD [address] [place] [address] R/S from 8-28 due to mother passing away 11/18/2025 2:00 PM EST Office Visit [facility] Dermatology [address] [place] [phone] Iván Guajardo MD [address] [place] [address] Return in about 1 year (around 11/18/2025). documented as of this encounter Procedures * Due to [facility] law, this organization might not be sharing negative HIV tests. Procedure Name Priority Date/Time Associated Diagnosis Comments CBC INCLUDES DIFFERENTIAL AND PLATELET COUNT Routine 09/15/2021 11:25 AM EST Acquired hemolytic anemia VENIPUNCTURE Routine 09/15/2021 11:25 AM EST Acquired hemolytic anemia COMPREHENSIVE METABOLIC PANEL WITH GFR Routine 09/15/2021 11:25 AM EST Acquired hemolytic anemia documented in this encounter Results * Due to [place] [employer] law, this organization might not be sharing negative HIV tests. * (ABNORMAL) CBC INCLUDES DIFFERENTIAL AND PLATELET COUNT (09/15/2021 11:25 AM EST) WBC 4.1 3.8 - 10.8 Thousand/ uL [facility] RBC 2.48(L) 4.20 - 5.80 Million/u L [facility] Hemoglobin 8.2(L) 13.2 - 17.1 g/dL [facility] Hematocrit 24.5(L) 38.5 - 50.0 % [facility] MCV 98.8 80.0 - 100.0 fL [facility] MCH 33.1(H) 27.0 - 33.0 pg [facility] MCHC 33.5 32.0 - 36.0 g/dL [facility] RDW 12.8 11.0 - 15.0 % [facility] PLT 135(L) 140 - 400 Thousand/ uL [facility] MPV 10.7 7.5 - 12.5 fL [facility] Neutrophils # CANCELED cells/uL [facility] Comment: TEST(S) NOT PERFORMED: ABSOLUTE NEUTROPHILS ABSOLUTE LYMPHOCYTES ABSOLUTE MONOCYTES ABSOLUTE EOSINOPHILS ABSOLUTE BASOPHILS NEUTROPHILS LYMPHOCYTES MONOCYTES EOSINOPHILS BASOPHILS Unable to report due to degeneration of cellular morphology. Result canceled by the ancillary. 09/15/2021 11:2 5 AM EST 09/17/2021 11:01 PM EST Narrative Resulting Agency Comment [id number] us Prince Owens MD LAB SAME DAY RESULT Final Result [facility] [address] [place] [address] * (ABNORMAL) COMPREHENSIVE METABOLIC PANEL WITH GFR (09/15/2021 11:25 AM EST) Glucose 157(H) 65 - 99 mg/dL [facility] Comment: Fasting reference interval For someone without known diabetes, a glucose value >125 mg/dL indicates that they may have diabetes and this should be confirmed with a follow-up test. Urea Nitrogen Blood (BUN) 19 7 - 25 mg/dL [facility] Creatinine 1.19 0.70 - 1.25 mg/dL [facility] Comment: For patients >49 years of age, the reference limit for Creatinine is approximately 13% higher for people identified as -Russian. EGFR 66 > OR = 60 mL/min/1 .73m2 [facility] GFR () 76 > OR = 60 mL/min/1 .73m2 [facility] BUN/Creatinine Ratio NOT APPLICABLE 6 - 22 (calc) [facility] Sodium 135 135 - 146 mmol/L [facility] Potassium 4.3 3.5 - 5.3 mmol/L [facility] Chloride 102 98 - 110 mmol/L [facility] Carbon dioxide 23 20 - 32 mmol/L [facility] Calcium 9.0 8.6 - 10.3 mg/dL [facility] Protein Total (Serum) 6.8 6.1 - 8.1 g/dL [facility] Albumin 4.7 3.6 - 5.1 g/dL [facility] Globulin 2.1 1.9 - 3.7 g/dL (calc) [facility] Albumin/Globulin 2.2 1.0 - 2.5 (calc) [facility] Bilirubin Total 5.1(H) 0.2 - 1.2 mg/dL [facility] Alkaline phosphatase 59 35 - 144 U/L [facility] AST (SGOT) 29 10 - 35 U/L [facility] ALT (SGPT) 30 9 - 46 U/L [facility] 09/15/2021 11:2 5 AM EST 09/17/2021 11:01 PM EST Narrative [facility] - 09/18/2021 2:52 AM EST Please note that this estimated [...] needs for GFR calculation. Resulting Agency Comment [id number] Prince Owens MD LABORATORY Final Resu lt Performing Organization Address City/[facility]/ZIP Co de Phone Number [facility] [address] [place] [address] * (ABNORMAL) LACTATE DEHYDROGENASE (LDH), SERUM (09/15/2021 11:25 AM EST) Lactate dehydrogenase 273(H) 120 - 250 U/L [facility] 09/15/2021 11:2 5 AM EST 09/17/2021 11:01 PM EST Narrative Resulting Agency Comment [id number] Prince Owens MD LABORATORY Final Resu lt Performing Organization Address City/[facility] de Phone Number [facility] [address] [place] [address] documented in this encounter Visit Diagnoses Diagnosis Acquired hemolytic anemia (HCC) Acquired hemolytic anemia, unspecified documented in this encounter Care Teams Fancy Wire Drawer Relationship Specialty Start Date End Date Manoj Agudelo I [address] [address] [place] [phone] PCP - General Family Medicine 02/05/18 Prince Owens MD [address] [place] [address] Primary Hem Onc Provider Hematology/Oncology 04/18/25 documented as of this encounter
--- OUTSIDE RECORDS SUMMARY | 2025-07-08 14:31 | XMS_ITS | Encounter Summary ---
Author Organization [facility] Address [address] [place] [address] Care Team Providers Care Public Works Supervisor Name Role Phone SantinochristianeManoj I Primary Care Provider [phone] Prince Owens MD Unavailable [phone] Encounter Details Date Type Department Care Team (Late Contact Info) Description 08/02/2021 Orders Only [facility] Hematology/Oncology [address] [place] [phone] Prince Owens MD [address] [place] [address] Social History Tobacco Use Types Packs/Day Years Used Date Smoking Tobacco: Never Cigarettes Smokeless Tobacco: Never Sex and Gender Information Value Date Recorded Sex Assigned at Not on file Legal Sex Male 10:51 PM EDT Gender Identity Not on file Sexual Orientation Not on file documented as of this encounter Miscellaneous Notes * Result Encounter Note - Prince Owens MD - 08/02/2021 7:16 AM EDT Bilirubin starting to improve. Hemoglobin is stabilizing. I would check again next Friday and just to make sure this continues to respond. documented in this encounter Plan of Treatment Upcoming Encounters Date Type Department Care Team (Late st Contact Info) Description 07/19/2025 9:00 AM EDT Office Visit [facility] Hematology/Oncology [address] [place] [phone] Prince Owens MD [address] [place] [address] R/S from 8-28 due to mother passing away 11/18/2025 2:00 PM EST Office Visit [facility] Dermatology [address] [place] [phone] Iván Guajardo MD [address] [place] [address] Return in about 1 year (around 11/18/2025). documented as of this encounter Procedures * Due to [facility] law, this organization might not be sharing negative HIV tests. Procedure Name Priority Date/Time Associated Diagnosis Comments VENIPUNCTURE Routine 08/02/2021 7:17 AM EDT Acquired hemolytic anemia LACTATE DEHYDROGENASE (LDH), SERUM Routine 08/02/2021 7:17 AM EDT Acquired hemolytic anemia COMPREHENSIVE METABOLIC PANEL WITH GFR Routine 08/02/2021 7:17 AM EDT Acquired hemolytic anemia documented in this encounter Results * Due to [place] [employer] law, this organization might not be sharing negative HIV tests. * LACTATE DEHYDROGENASE (LDH), SERUM (08/02/2021 7:17 AM EDT) Lactate dehydrogenase 209 120 - 250 U/L [facility] 08/02/2021 7:17 AM EDT 08/02/2021 9:21 AM EDT Narrative Resulting Agency Comment [id number] Prince Owens MD LABORATORY Final Resu lt [facility] [address] [place] [address] * (ABNORMAL) COMPREHENSIVE METABOLIC PANEL WITH GFR (08/02/2021 7:17 AM EDT) Glucose 89 65 - 99 mg/dL [facility] Comment:Fasting reference in terval Urea Nitrogen Blood (BUN) 18 7 - 25 mg/dL [facility] Creatinine 1.08 0.70 - 1.25 mg/dL [facility] Comment: For patients >49 years of age, the reference limit for Creatinine is approximately 13% higher for people identified as -[place]ese. EGFR 74 > OR = 60 mL/min/1 .73m2 [facility] GFR () 85 > OR = 60 mL/min/1 .73m2 [facility] BUN/Creatinine Ratio NOT APPLICABLE 6 - 22 (calc) [facility] Sodium 140 135 - 146 mmol/L [facility] Potassium 4.2 3.5 - 5.3 mmol/L [facility] Chloride 106 98 - 110 mmol/L [facility] Carbon dioxide 25 20 - 32 mmol/L [facility] Calcium 8.8 8.6 - 10.3 mg/dL [facility] Protein Total (Serum) 6.7 6.1 - 8.1 g/dL [facility] Albumin 5.0 3.6 - 5.1 g/dL [facility] Globulin 1.7(L) 1.9 - 3.7 g/dL (calc) [facility] Albumin/Globulin 2.9(H) 1.0 - 2.5 (calc) [facility] Bilirubin Total 3.3(H) 0.2 - 1.2 mg/dL [facility] Alkaline phosphatase 51 35 - 144 U/L [facility] AST (SGOT) 15 10 - 35 U/L [facility] ALT (SGPT) 15 9 - 46 U/L [facility] 08/02/2021 7:17 AM EDT 08/02/2021 9:21 AM EDT Narrative [facility] - 08/02/2021 9:18 PM EDT Please note that this estimated [...] needs for GFR calculation. Resulting Agency Comment [id number] us Prince Owens MD LABORATORY Final Resu lt [facility] [address] [place] [address] * (ABNORMAL) CBC INCLUDES DIFFERENTIAL AND PLATELET COUNT (08/02/2021 7:17 AM EDT) WBC 4.7 3.8 - 10.8 Thousand/u L [facility] RBC 2.42(L) 4.20 - 5.80 Million/uL [facility] Hemoglobin 8.2(L) 13.2 - 17.1 g/dL [facility] Hematocrit 24.9(L) 38.5 - 50.0 % [facility] MCV 102.9(H) 80.0 - 100.0 fL [facility] MCH 33.9(H) 27.0 - 33.0 pg [facility] MCHC 32.9 32.0 - 36.0 g/dL [facility] RDW 13.3 11.0 - 15.0 % [facility] PLT 206 140 - 400 Thousand/u L [facility] MPV 9.9 7.5 - 12.5 fL [facility] Neutrophils # 2421 1500 - 7800 cells/uL [facility] Lymphocytes # 1706 850 - 3900 cells/uL [facility] Monocytes # 343 200 - 950 cells/uL [facility] Eosinophils # 202 15 - 500 cells/uL [facility] Basophils # 28 0 - 200 cells/uL [facility] Neutrophils % 51.5 % [facility] Lymphocytes % 36.3 % [facility] Monocytes % 7.3 % [facility] Eosinophils % 4.3 % [facility] Basophils % 0.6 % [facility] 08/02/2021 7:17 AM EDT 08/02/2021 9:21 AM EDT Narrative Resulting Agency Comment [id number] us Prince Owens MD LAB SAME DAY RESULT Final Result Performing Organization Address City/State/[facility] Co de Phone Number [facility] [address] [place] [address] documented in this encounter Visit Diagnoses Diagnosis Acquired hemolytic anemia (HCC) Acquired hemolytic anemia, unspecified documented in this encounter Care Teams Public Works Supervisor Relationship Specialty Start Date End Date Manoj Agudelo I [address] [phone] PCP - General Family Medicine 02/05/18 [place] [address] Primary Hem Onc Provider Hematology/Oncology 04/18/25 documented as of this encounter
--- OUTSIDE RECORDS SUMMARY | 2025-07-08 14:31 | XMS_ITS | Encounter Summary ---
Author Organization [facility] Address [address] [place] [address] Care Team Providers Care Crew Leader/Control Room Operator Name Role Phone Manoj Agudelo I Primary Care Provider [phone] Prince Owens MD Unavailable [phone] Encounter Details Date Type Department Care Team (Late st Contact Info) Description 03/09/2024 Orders Only [facility] Hematology/Oncology [address] [place] [phone] Prince Owens MD [address] [place] [address] Social History Tobacco Use Types Packs/Day Years [...] Encounter Note - Prince Owens MD - 03/09/2024 3:37 PM EDT Notified patient of results via [employer] message. documented in this encounter Plan of Treatment Upcoming Encounters Date Type Department Care Team (Late st Contact Info) Description 07/19/2025 9:00 AM EDT Office Visit [facility] Hematology/Oncology [address] [place] [address] Prince Owens MD 5 [place] [address] R/S from - due to mother passing away 11/18/2025 2:00 PM EST Office Visit [facility] Dermatology 5 [place] [phone] Iván Guajardo MD [address] [place], [place] [phone] Return in about 1 year (around 11/18/2025). documented as of this encounter Procedures * Due to [place] [employer] law, this organization might not be sharing negative HIV tests. Procedure Name Priority Date/Time Associated Diagnosis Comments CBC INCLUDES DIFFERENTIAL AND PLATELET COUNT Routine 03/09/2024 3:37 PM EDT Malignant neoplasm of urinary bladder, unspecified site LACTATE DEHYDROGENASE (LDH), SERUM Routine 03/09/2024 3:37 PM EDT Malignant neoplasm of urinary bladder, unspecified site COMPREHENSIVE METABOLIC PANEL WITH GFR Routine 03/09/2024 3:37 PM EDT Malignant neoplasm of urinary bladder, unspecified site documented in this encounter Results * Due to [place] [employer] law, this organization might not be sharing negative HIV tests. * (ABNORMAL) CBC INCLUDES DIFFERENTIAL AND PLATELET COUNT (03/09/2024 3:37 PM EDT) WBC 9.3 3.8 - 10.8 Thousand/u L [facility] RBC 4.03(L) 4.20 - 5.80 Million/uL [facility] Hemoglobin 12.6(L) 13.2 - 17.1 g/dL [facility] Hematocrit 39.4 38.5 - 50.0 % [facility] MCV 97.8 80.0 - 100.0 fL [facility] MCH 31.3 27.0 - 33.0 pg [facility] MCHC 32.0 32.0 - 36.0 g/dL [facility] RDW 12.6 11.0 - 15.0 % [facility] PLT 268 140 - 400 Thousand/u L [facility] MPV 10.2 7.5 - 12.5 fL [facility] Neutrophils # 8491(H) 1500 - 7800 cells/uL [facility] Lymphocytes # 651(L) 850 - 3900 cells/uL [facility] Monocytes # 149(L) 200 - 950 cells/uL [facility] Eosinophils # 0(L) 15 - 500 cells/uL [facility] Basophils # 9 0 - 200 cells/uL [facility] Neutrophils % 91.3 % [facility] Lymphocytes % 7.0 % [facility] Monocytes % 1.6 % [facility] Eosinophils % 0.0 % [facility] Basophils % 0.1 % [facility] 03/09/2024 3:37 PM EDT 03/09/2024 11:31 PM EDT Narrative Resulting Agency Comment [id number] us Prince Owens MD LAB SAME DAY RESULT Final Result [facility] [address] [place] [address] * (ABNORMAL) COMPREHENSIVE METABOLIC PANEL WITH GFR (03/09/2024 3:37 PM EDT) Glucose 397(H) 65 - 99 mg/dL [facility] Comment: Fasting reference interval For someone without known diabetes, a glucose value >125 mg/dL indicates that they may have diabetes and this should be confirmed with a follow-up test. Urea Nitrogen Blood (BUN) 34(H) 7 - 25 mg/dL [facility] Creatinine 1.11 0.70 - 1.35 mg/dL [facility] EGFR 75 > OR = 60 mL/min/1.7 3m2 [facility] BUN/Creatinine Ratio 31(H) 6 - 22 (calc) [facility] Sodium 138 135 - 146 mmol/L [facility] Potassium 5.3 3.5 - 5.3 mmol/L [facility] Chloride 101 98 - 110 mmol/L [facility] Carbon dioxide 26 20 - 32 mmol/L [facility] Calcium 9.2 8.6 - 10.3 mg/dL [facility] Protein Total (Serum) 6.5 6.1 - 8.1 g/dL [facility] Albumin 4.7 3.6 - 5.1 g/dL [facility] Globulin 1.8(L) 1.9 - 3.7 g/dL (calc) [facility] Albumin/Globulin 2.6(H) 1.0 - 2.5 (calc) [facility] Bilirubin Total 3.6(H) 0.2 - 1.2 mg/dL [facility] Alkaline phosphatase 57 35 - 144 U/L [facility] AST (SGOT) 23 10 - 35 U/L [facility] ALT (SGPT) 36 9 - 46 U/L [facility] 03/09/2024 3:37 PM EDT 03/09/2024 11:31 PM EDT Narrative [facility] - 03/10/2024 3:48 AM EDT Please note that this estimated [...] needs for GFR calculation. Resulting Agency Comment [id number] Prince Owens MD LABORATORY Final Resu lt [facility] [address] [place] [address] * LACTATE DEHYDROGENASE (LDH), SERUM (03/09/2024 3:37 PM EDT) Lactate dehydrogenase 180 120 - 250 U/L [facility] 03/09/2024 3:37 PM EDT 03/09/2024 11:31 PM EDT Narrative Resulting Agency Comment [id number] us Prince Owens MD LABORATORY Final Resu lt [facility] [address] [place] [address] documented in this encounter Visit Diagnoses Diagnosis Malignant neoplasm of urinary bladder, unspecified site (HCC) documented in this encounter Care Teams Crew Leader/Control Room Operator Relationship Specialty Start Date End Date Manoj Agudelo I [facility] [address] [place] [phone] PCP - General Family Medicine 02/05/18 Prince Owens MD [address] [place] [address] Primary Hem Onc Provider Hematology/Oncology 04/18/25 documented as of this encounter
--- OUTSIDE RECORDS SUMMARY | 2025-07-08 14:31 | XMS_ITS | Encounter Summary ---
Author Organization [facility] Address [address] [place] [address] Care Team Providers Care Jigger Machine Operator Name Role Phone Manoj Agudelo I Primary Care Provider [phone] Prince Owens MD Unavailable Encounter Details Date Type Department Care Team (Late Contact Info) Description 08/09/2021 Orders Only [facility] Hematology/Oncology [address] [phone] Prince Owens MD [address] [place] [address] Social History Tobacco Use Types Packs/Day Years Used Date Smoking Tobacco: Never Cigarettes Smokeless Tobacco: Never Sex and Gender Information Value Date Recorded Sex Assigned at Not on file Legal Sex Male 10:51 PM EDT Gender Identity Not on file Sexual Orientation Not on file documented as of this encounter Miscellaneous Notes * Result Encounter Note - Prince Owens MD - 08/09/2021 7:28 AM EDT Continues to slowly improve documented in this encounter Plan of Treatment Upcoming Encounters Date Type Department Care Team (Late st Contact Info) Description 07/19/2025 9:00 AM EDT Office Visit [facility] Hematology/Oncology [address] [place] [phone] Prince Owens MD [address] [place] [address] R/S from 8-28 due to mother passing away 11/18/2025 2:00 PM EST Office Visit [facility] Dermatology [address] [place] [phone] Iván Guajardo MD [address] [place] [address] Return in about 1 year (around 11/18/2025). documented as of this encounter Procedures * Due to [facility] law, this organization might not be sharing negative HIV tests. Procedure Name Priority Date/Time Associated Diagnosis Comments CBC INCLUDES DIFFERENTIAL AND PLATELET COUNT Routine 08/09/2021 7:28 AM EDT Acquired hemolytic anemia VENIPUNCTURE Routine 08/09/2021 7:28 AM EDT Acquired hemolytic anemia COMPREHENSIVE METABOLIC PANEL WITH GFR Routine 08/09/2021 7:28 AM EDT Acquired hemolytic anemia documented in this encounter Results * Due to [place] [employer] law, this organization might not be sharing negative HIV tests. * (ABNORMAL) CBC INCLUDES DIFFERENTIAL AND PLATELET COUNT (08/09/2021 7:28 AM EDT) WBC 4.9 3.8 - 10.8 Thousand/u L [facility] RBC 2.58(L) 4.20 - 5.80 Million/uL [facility] Hemoglobin 8.7(L) 13.2 - 17.1 g/dL [facility] Hematocrit 26.5(L) 38.5 - 50.0 % [facility] MCV 102.7(H) 80.0 - 100.0 fL [facility] MCH 33.7(H) 27.0 - 33.0 pg [facility] MCHC 32.8 32.0 - 36.0 g/dL [facility] RDW 13.0 11.0 - 15.0 % [facility] PLT 213 140 - 400 Thousand/u L [facility] MPV 10.0 7.5 - 12.5 fL [facility] Neutrophils # 2215 1500 - 7800 cells/uL [facility] Lymphocytes # 2034 850 - 3900 cells/uL [facility] Monocytes # 441 200 - 950 cells/uL [facility] Eosinophils # 172 15 - 500 cells/uL [facility] Basophils # 39 0 - 200 cells/uL [facility] Neutrophils % 45.2 % [facility] Lymphocytes % 41.5 % [facility] Monocytes % 9.0 % [facility] Eosinophils % 3.5 % [facility] Basophils % 0.8 % [facility] 08/09/2021 7:28 AM EDT 08/09/2021 8:20 AM EDT Narrative Resulting Agency Comment [id number] us Prince Owens MD LAB SAME DAY RESULT Final Result [facility] [address] [place] [address] * (ABNORMAL) COMPREHENSIVE METABOLIC PANEL WITH GFR (08/09/2021 7:28 AM EDT) Glucose 124(H) 65 - 99 mg/dL [facility] Comment: Fasting reference interval For someone without known diabetes, a glucose value between 100 and 125 mg/dL is consistent with prediabetes and should be confirmed with a follow-up test. Urea Nitrogen Blood (BUN) 17 7 - 25 mg/dL [facility] Creatinine 1.23 0.70 - 1.25 mg/dL [facility] Comment: For patients >49 years of age, the reference limit for Creatinine is approximately 13% higher for people identified as -[place]hut[place]. EGFR 63 > OR = 60 mL/min/1 .73m2 [facility] GFR () 73 > OR = 60 mL/min/1 .73m2 [facility] BUN/Creatinine Ratio NOT APPLICABLE 6 - 22 (calc) [facility] Sodium 139 135 - 146 mmol/L [facility] Potassium 4.0 3.5 - 5.3 mmol/L [facility] Chloride 105 98 - 110 mmol/L [facility] Carbon dioxide 26 20 - 32 mmol/L [facility] Calcium 10.1 8.6 - 10.3 mg/dL [facility] Protein Total (Serum) 7.0 6.1 - 8.1 g/dL [facility] Albumin 4.9 3.6 - 5.1 g/dL [facility] Globulin 2.1 1.9 - 3.7 g/dL (calc) [facility] Albumin/Globulin 2.3 1.0 - 2.5 (calc) [facility] Bilirubin Total 4.2(H) 0.2 - 1.2 mg/dL [facility] Alkaline phosphatase 48 35 - 144 U/L [facility] AST (SGOT) 13 10 - 35 U/L [facility] ALT (SGPT) 13 9 - 46 U/L [facility] 08/09/2021 7:28 AM EDT 08/09/2021 8:20 AM EDT Narrative [facility] - 08/09/2021 3:09 PM EDT Please note that this estimated [...] needs for GFR calculation. Resulting Agency Comment [id number] Prince Owens MD LABORATORY Final Resu lt Performing Organization Address [facility] Co de Phone Number [facility] [address] [place] [address] * LACTATE DEHYDROGENASE (LDH), SERUM (08/09/2021 7:28 AM EDT) Lactate dehydrogenase 184 120 - 250 U/L [facility] 08/09/2021 7:28 AM EDT 08/09/2021 8:20 AM EDT Narrative Resulting Agency Comment [id number] us Prince Owens MD LABORATORY Final Resu lt Performing Organization Address [facility] Co de Phone Number [facility] [address] [place] [address] documented in this encounter Visit Diagnoses Diagnosis Acquired hemolytic anemia (HCC) Acquired hemolytic anemia, unspecified documented in this encounter Care Teams Jigger Machine Operator Relationship Specialty Start Date End Date Manoj Agudelo I [address] [phone] PCP - General Family Medicine 02/05/18 Prince Owens MD [address] [place] [address] Primary Hem Onc Provider Hematology/Oncology 04/18/25 documented as of this encounter
--- OUTSIDE RECORDS SUMMARY | 2025-07-08 14:31 | XMS_ITS | Encounter Summary ---
Author Organization [facility] Address [address] [place] [address] Care Team Providers Care Insurance Account Specialist Name Role Phone Manoj Agudelo I Primary Care Provider [phone] Prince Owens MD Unavailable [phone] Encounter Details Date Type Department Care Team (Late st Contact Info) Description 06/04/2024 Orders Only [facility] Hematology/Oncology [address] [place] [phone] Prince Owens MD [address] [place] [address] Social History Tobacco Use Types Packs/Day Years [...] Encounter Note - Prince Owens MD - 06/04/2024 11:29 AM EDT Notified patient of results via [email or web address] message. documented in this encounter Plan of Treatment Upcoming Encounters Date Type Department Care Team (Late st Contact Info) Description 07/19/2025 9:00 AM EDT Office Visit [facility] Hematology/Oncology [address] [place] [phone] Prince Owens MD [address] [place] [address] R/S from 8- due to mother passing away 11/18/2025 2:00 PM EST Office Visit [facility] Dermatology [address] [place] [phone] Iván Guajardo MD [address] [place], [place] [phone] Return in about 1 year (around 11/18/2025). documented as of this encounter Procedures * Due to [place] [employer] law, this organization might not be sharing negative HIV tests. Procedure Name Priority Date/Time Associated Diagnosis Comments CBC INCLUDES DIFFERENTIAL AND PLATELET COUNT Routine 06/04/2024 11:29 AM EDT Acquired hemolytic anemia LACTATE DEHYDROGENASE (LDH), SERUM Routine 06/04/2024 11:29 AM EDT Acquired hemolytic anemia COMPREHENSIVE METABOLIC PANEL WITH GFR Routine 06/04/2024 11:29 AM EDT Acquired hemolytic anemia documented in this encounter Results * Due to [place] [employer] law, this organization might not be sharing negative HIV tests. * (ABNORMAL) CBC INCLUDES DIFFERENTIAL AND PLATELET COUNT (06/04/2024 11:29 AM EDT) WBC 7.0 3.8 - 10.8 Thousand/u L [facility] RBC 2.57(L) 4.20 - 5.80 Million/uL [facility] Hemoglobin 8.7(L) 13.2 - 17.1 g/dL [facility] Hematocrit 27.4(L) 38.5 - 50.0 % [facility] MCV 106.6(H) 80.0 - 100.0 fL [facility] MCH 33.9(H) 27.0 - 33.0 pg [facility] MCHC 31.8(L) 32.0 - 36.0 g/dL [facility] RDW 13.4 11.0 - 15.0 % [facility] PLT 224 140 - 400 Thousand/u L [facility] MPV 10.0 7.5 - 12.5 fL [facility] Neutrophils # 4396 1500 - 7800 cells/uL [facility] Lymphocytes # 1862 850 - 3900 cells/uL [facility] Monocytes # 490 200 - 950 cells/uL [facility] Eosinophils # 210 15 - 500 cells/uL [facility] Basophils # 42 0 - 200 cells/uL [facility] Neutrophils % 62.8 % [facility] Lymphocytes % 26.6 % [facility] Monocytes % 7.0 % [facility] Eosinophils % 3.0 % [facility] Basophils % 0.6 % [facility] 06/04/2024 11:2 9 AM EDT 06/04/2024 9:43 PM EDT Narrative Resulting Agency Comment [id number] Prince Owens MD LAB SAME DAY RESULT Final Result [facility] [address] [place] [address] * (ABNORMAL) COMPREHENSIVE METABOLIC PANEL WITH GFR (06/04/2024 11:29 AM EDT) Glucose 115(H) 65 - 99 mg/dL [facility] Comment: Fasting reference interval For someone without known diabetes, a glucose value between 100 and 125 mg/dL is consistent with prediabetes and should be confirmed with a follow-up test. Urea Nitrogen Blood (BUN) 21 7 - 25 mg/dL [facility] Creatinine 1.04 0.70 - 1.35 mg/dL [facility] EGFR [...] - 2.5 (calc) [facility] Bilirubin Total 5.8(H) 0.2 - 1.2 mg/dL [facility] Alkaline phosphatase 62 35 - 144 U/L [facility] AST (SGOT) 18 10 - 35 U/L [facility] ALT (SGPT) 22 9 - 46 U/L [facility] 06/04/2024 11:2 9 AM EDT 06/04/2024 9:43 PM EDT Narrative [facility] - 06/05/2024 1:07 AM EDT Please note that this estimated [...] needs for GFR calculation. Resulting Agency Comment [id number] us Prince Owens MD LABORATORY Final Resu lt [facility] [address] [place] [address] * LACTATE DEHYDROGENASE (LDH), SERUM (06/04/2024 11:29 AM EDT) Lactate dehydrogenase 208 120 - 250 U/L [facility] 06/04/2024 11:2 9 AM EDT 06/04/2024 9:43 PM EDT Narrative Resulting Agency Comment [id number] us Prince Owens MD LABORATORY Final Resu lt [facility] [address] [place] [address] documented in this encounter Visit Diagnoses Diagnosis Acquired hemolytic anemia (HCC) Acquired hemolytic anemia, unspecified documented in this encounter Care Teams Insurance Account Specialist Relationship Specialty Start Date End Date Manoj Agudelo I [place] [place] [phone] PCP - General Family Medicine 02/05/18 Prince Owens MD [address] [place] [address] Primary Hem Onc Provider Hematology/Oncology 04/18/25 documented as of this encounter
--- OUTSIDE RECORDS SUMMARY | 2025-07-08 14:31 | XMS_ITS | Encounter Summary ---
Author Organization [facility] Address [address] [place] [address] Care Team Providers Care Motorboat Operator Name Role Phone RachellesherryJohncorywalter [place] Primary Care Provider [phone] Prince Owens MD Unavailable [phone] Encounter Details Date Type Department Care Team (Late st Contact Info) Description 04/29/2024 Orders Only [facility] Hematology/Oncology [address] [place] [phone] Prince Owens MD [address] [place] [address] Social History Tobacco Use Types Packs/Day Years [...] Encounter Note - Prince Owens MD - 04/29/2024 12:43 PM EDT Results normal/stable. I have notified the patient via [email or web address]. documented in this encounter Plan of Treatment Upcoming Encounters Date Type Department Care Team (Late st Contact Info) Description 07/19/2025 9:00 AM EDT Office Visit [facility] Hematology/Oncology [address] [place] [phone] Prince Owens MD [address] [place] [address] R/S from - due to mother passing away 11/18/2025 2:00 PM EST Office Visit [facility] Dermatology [address] [place] [phone] Iván Guajardo MD [address] [place], [place] [phone] Return in about 1 year (around 11/18/2025). documented as of this encounter Procedures * Due to [place] [employer] law, this organization might not be sharing negative HIV tests. Procedure Name Priority Date/Time Associated Diagnosis Comments CBC INCLUDES DIFFERENTIAL AND PLATELET COUNT Routine 04/29/2024 12:43 PM EDT Acquired hemolytic anemia LACTATE DEHYDROGENASE (LDH), SERUM Routine 04/29/2024 12:43 PM EDT Acquired hemolytic anemia COMPREHENSIVE METABOLIC PANEL WITH GFR Routine 04/29/2024 12:43 PM EDT Acquired hemolytic anemia documented in this encounter Results * Due to [place] [employer] law, this organization might not be sharing negative HIV tests. * (ABNORMAL) CBC INCLUDES DIFFERENTIAL AND PLATELET COUNT (04/29/2024 12:43 PM EDT) WBC 6.8 3.8 - 10.8 Thousand/u L [facility] RBC 3.03(L) 4.20 - 5.80 Million/uL [facility] Hemoglobin 10.4(L) 13.2 - 17.1 g/dL [facility] Hematocrit 31.4(L) 38.5 - 50.0 % [facility] MCV 103.6(H) 80.0 - 100.0 fL [facility] MCH 34.3(H) 27.0 - 33.0 pg [facility] MCHC 33.1 32.0 - 36.0 g/dL [facility] RDW 13.7 11.0 - 15.0 % [facility] PLT 192 140 - 400 Thousand/u L [facility] MPV 10.1 7.5 - 12.5 fL [facility] Neutrophils # 4644 1500 - 7800 cells/uL [facility] Lymphocytes # 1625 850 - 3900 cells/uL [facility] Monocytes # 381 200 - 950 cells/uL [facility] Eosinophils # 109 15 - 500 cells/uL [facility] Basophils # 41 0 - 200 cells/uL [facility] Neutrophils % 68.3 % [facility] Lymphocytes % 23.9 % [facility] Monocytes % 5.6 % [facility] Eosinophils % 1.6 % [facility] Basophils % 0.6 % [facility] 04/29/2024 12:4 3 PM EDT 04/30/2024 12:41 AM EDT Narrative Resulting Agency Comment [id number] us Prince Owens MD LAB SAME DAY RESULT Final Result [facility] [address] [place] [address] * (ABNORMAL) COMPREHENSIVE METABOLIC PANEL WITH GFR (04/29/2024 12:43 PM EDT) Glucose 133(H) 65 - 99 mg/dL [facility] Comment: Fasting reference interval For someone without known diabetes, a glucose value >125 mg/dL indicates that they may have diabetes and this should be confirmed with a follow-up test. Urea Nitrogen Blood (BUN) 19 7 - 25 mg/dL [facility] Creatinine 0.98 0.70 - 1.35 mg/dL [facility] EGFR 87 > OR = 60 mL/min/1. 73m2 [facility] [...] - 35 U/L [facility] ALT (SGPT) 27 9 - 46 U/L [facility] 04/29/2024 12:4 3 PM EDT 04/30/2024 12:41 AM EDT Narrative [facility] - 04/30/2024 3:39 AM EDT Please note that this estimated [...] needs for GFR calculation. Resulting Agency Comment [id number] Prince Owens MD LABORATORY Final Resu lt [facility] [address] [place] [address] * LACTATE DEHYDROGENASE (LDH), SERUM (04/29/2024 12:43 PM EDT) Lactate dehydrogenase 200 120 - 250 U/L [facility] 04/29/2024 12:4 3 PM EDT 04/30/2024 12:41 AM EDT Narrative Resulting Agency Comment [id number] Prince Owens MD LABORATORY Final Resu lt [facility] [address] [place] [address] documented in this encounter Visit Diagnoses Diagnosis Acquired hemolytic anemia (HCC) Acquired hemolytic anemia, unspecified documented in this encounter Care Teams Motorboat Operator Relationship Specialty Start Date End Date Manoj Agudelo I [address] [place] [phone] PCP - General Family Medicine 02/05/18 Prince Owens MD [address] [place] [address] Primary Hem Onc Provider Hematology/Oncology 04/18/25 documented as of this encounter
--- OUTSIDE RECORDS SUMMARY | 2025-07-08 14:31 | XMS_ITS | Encounter Summary ---
Author Organization [facility] Address [address] [place] [address] Care Team Providers Care Night Clerk Auditor Name Role Phone Manoj Agudelo I Primary Care Provider [phone] Prince Owens MD Unavailable [phone] Encounter Details Date Type Department Care Team (Late Contact Info) Description 04/17/2020 Orders Only [facility] Hematology/Oncology [address] [phone] Prince Owens MD [address] [place] [address] Social History Tobacco Use Types Packs/Day Years Used Date Smoking Tobacco: Never Cigarettes Smokeless Tobacco: Never Sex and Gender Information Value Date Recorded Sex Assigned at Not on file Legal Sex Male 10:51 PM EDT Gender Identity Not on file Sexual Orientation Not on file COVID-19 Exposure Response Date Recorded In the last month, have you been in contact with someone who was confirmed or suspected to have Coronavirus / COVID-19? No / Unsure 04/18/2020 4:31 PM EDT documented as of this encounter Plan of Treatment Upcoming Encounters Date Type Department Care Team (Late Contact Info) Description 07/19/2025 9:00 AM EDT Office Visit [facility] Hematology/Oncology [address] [place] [phone] Prince Owens MD [address] [place] [phone] R/S from 8- due to mother passing away 11/18/2025 2:00 PM EST Office Visit [facility] Dermatology [address] [place] [phone] Iván Guajardo MD [address] [place] [address] Return in about 1 year (around 11/18/2025). documented as of this encounter Procedures * Due to [place] [employer] law, this organization might not be sharing negative HIV tests. Procedure Name Priority Date/Time Associated Diagnosis Comments VENIPUNCTURE Routine 04/17/2020 8:39 AM EDT Acquired hemolytic anemia LACTATE DEHYDROGENASE (LDH), SERUM Routine 04/17/2020 8:39 AM EDT Acquired hemolytic anemia COMPREHENSIVE METABOLIC PANEL WITH GFR Routine 04/17/2020 8:39 AM EDT Acquired hemolytic anemia documented in this encounter Results * Due to [place] [employer] law, this organization might not be sharing negative HIV tests. * (ABNORMAL) COMPREHENSIVE METABOLIC PANEL WITH GFR (04/17/2020 8:39 AM EDT) Glucose 150(H) 65 - 99 mg/dL [facility] Comment: Fasting reference interval For someone without known diabetes, a glucose value >125 mg/dL indicates that they may have diabetes and this should be confirmed with a follow-up test. Urea Nitrogen Blood (BUN) 20 7 - 25 mg/dL [facility] Creatinine 1.00 0.70 - 1.33 mg/dL [facility] Comment: For patients >49 years of age, the reference limit for Creatinine is approximately 13% higher for people identified as -[place]. EGFR 82 > OR = 60 mL/min/1 .73m2 [facility] GFR () 95 > OR = 60 mL/min/1 .73m2 [facility] BUN/Creatinine Ratio NOT APPLICABLE 6 - 22 (calc) [facility] Sodium 140 135 - 146 mmol/L [facility] Potassium 4.2 3.5 - 5.3 mmol/L [facility] Chloride 108 98 - 110 mmol/L [facility] Carbon dioxide 24 20 - 32 mmol/L [facility] Calcium 9.5 8.6 - 10.3 mg/dL [facility] Protein Total (Serum) 6.9 6.1 - 8.1 g/dL [facility] Albumin 4.7 3.6 - 5.1 g/dL [facility] Globulin 2.2 1.9 - 3.7 g/dL (calc) [facility] Albumin/Globulin 2.1 1.0 - 2.5 (calc) [facility] Bilirubin Total 3.1(H) 0.2 - 1.2 mg/dL [facility] Alkaline phosphatase 49 35 - 144 U/L [facility] AST (SGOT) 18 10 - 35 U/L [facility] ALT (SGPT) 23 9 - 46 U/L [facility] 04/17/2020 8:39 AM EDT 04/17/2020 9:56 PM EDT Narrative [facility] - 04/18/2020 12:04 AM EDT Please note that this estimated [...] with more precise needs for GFR calculation. Prince Owens MD LABORATORY Final Resu lt Performing Organization Address City/[facility]/ZIP Co de Phone Number [facility] [address] [place] [address] * LACTATE DEHYDROGENASE (LDH), SERUM (04/17/2020 8:39 AM EDT) Lactate dehydrogenase 175 120 - 250 U/L [facility] 04/17/2020 8:39 AM EDT 04/17/2020 9:56 PM EDT Narrative Resulting Agency Comment [id number] Prince Owens MD LABORATORY Final Resu lt Performing Organization Address City/[facility]/ZIP Co de Phone Number [facility] [address] [place] [address] * (ABNORMAL) CBC INCLUDES DIFFERENTIAL AND PLATELET COUNT (04/17/2020 8:39 AM EDT) WBC 5.0 3.8 - 10.8 Thousand/u L [facility] RBC 3.25(L) 4.20 - 5.80 Million/uL [facility] Hemoglobin 10.6(L) 13.2 - 17.1 g/dL [facility] Hematocrit 31.8(L) 38.5 - 50.0 % [facility] MCV 97.8 80.0 - 100.0 fL [facility] MCH 32.6 27.0 - 33.0 pg [facility] MCHC 33.3 32.0 - 36.0 g/dL [facility] RDW 12.8 11.0 - 15.0 % [facility] PLT 222 140 - 400 Thousand/u L [facility] MPV 11.4 7.5 - 12.5 fL [facility] Neutrophils # 2220 1500 - 7800 cells/uL [facility] Lymphocytes # 2160 850 - 3900 cells/uL [facility] Monocytes # 370 200 - 950 cells/uL [facility] Eosinophils # 210 15 - 500 cells/uL [facility] Basophils # 40 0 - 200 cells/uL [facility] Neutrophils % 44.4 % [facility] Lymphocytes % 43.2 % [facility] Monocytes % 7.4 % [facility] Eosinophils % 4.2 % [facility] Basophils % 0.8 % [facility] 04/17/2020 8:39 AM EDT 04/17/2020 9:56 PM EDT Narrative Resulting Agency Comment [id number] us Prince Owens MD LAB SAME DAY RESULT Final Result Performing Organization Address City/State/[facility] de Phone Number [facility] [address] [place] [address] documented in this encounter Visit Diagnoses Diagnosis Acquired hemolytic anemia (HCC) Acquired hemolytic anemia, unspecified documented in this encounter Care Teams Night Clerk Auditor Relationship Specialty Start Date End Date Manoj Agudelo I [address] [phone] PCP - General Family Medicine 02/05/18 Prince Owens MD [address] [place] [address] Primary Hem Onc Provider Hematology/Oncology 04/18/25 documented as of this encounter
--- OUTSIDE RECORDS SUMMARY | 2025-07-08 14:31 | XMS_ITS | Encounter Summary ---
Author Organization [facility] Address [address] [place] [address] Care Team Providers Care Quarry Supervisor Name Role Phone Manoj Agudelo I Primary Care Provider [phone] Prince Owens MD Unavailable [phone] Encounter Details Date Type Department Care Team (Late Contact Info) Description 01/19/2021 Orders Only [facility] Hematology/Oncology [address] [phone] Prince Owens MD [address] [place] [address] Social History Tobacco Use Types Packs/Day Years [...] EDT Office Visit [facility] Hematology/Oncology [address] [place] [phone] Prince Owens MD [address] [place] [address] R/S from 8-28 due to mother passing away 11/18/2025 2:00 PM EST Office Visit [facility] Dermatology [address] [place] [phone] Iván Guajardo MD [address] [place] [address] Return in about 1 year (around 11/18/2025). documented as of this encounter Procedures * Due to [facility] law, this organization might not be sharing negative HIV tests. Procedure Name Priority Date/Time Associated Diagnosis Comments CBC INCLUDES DIFFERENTIAL AND PLATELET COUNT Routine 01/19/2021 7:47 AM EDT Acquired hemolytic anemia VENIPUNCTURE Routine 01/19/2021 7:47 AM EDT Acquired hemolytic anemia COMPREHENSIVE METABOLIC PANEL WITH GFR Routine 01/19/2021 7:47 AM EDT Acquired hemolytic anemia documented in this encounter Results * Due to [place] [employer] law, this organization might not be sharing negative HIV tests. * (ABNORMAL) CBC INCLUDES DIFFERENTIAL AND PLATELET COUNT (01/19/2021 7:47 AM EDT) WBC 4.8 3.8 - 10.8 Thousand/u L [facility] RBC 3.02(L) 4.20 - 5.80 Million/uL [facility] Hemoglobin 10.0(L) 13.2 - 17.1 g/dL [facility] Hematocrit 30.1(L) 38.5 - 50.0 % [facility] MCV 99.7 80.0 - 100.0 fL [facility] MCH 33.1(H) 27.0 - 33.0 pg [facility] MCHC 33.2 32.0 - 36.0 g/dL [facility] RDW 13.0 11.0 - 15.0 % [facility] PLT 206 140 - 400 Thousand/u L [facility] MPV 10.0 7.5 - 12.5 fL [facility] Neutrophils # 2323 1500 - 7800 cells/uL [facility] Lymphocytes # 1896 850 - 3900 cells/uL [facility] Monocytes # 331 200 - 950 cells/uL [facility] Eosinophils # 211 15 - 500 cells/uL [facility] Basophils # 38 0 - 200 cells/uL [facility] Neutrophils % 48.4 % [facility] Lymphocytes % 39.5 % [facility] Monocytes % 6.9 % [facility] Eosinophils % 4.4 % [facility] Basophils % 0.8 % [facility] 01/19/2021 7:47 AM EDT 01/19/2021 9:38 AM EDT Narrative Resulting Agency Comment [id number] us Prince Owens MD LAB SAME DAY RESULT Final Result [facility] [address] [place] [address] * (ABNORMAL) COMPREHENSIVE METABOLIC PANEL WITH GFR (01/19/2021 7:47 AM EDT) Glucose 161(H) 65 - 99 mg/dL [facility] Comment: Fasting reference interval For someone without known diabetes, a glucose value >125 mg/dL indicates that they may have diabetes and this should be confirmed with a follow-up test. Urea Nitrogen Blood (BUN) 18 7 - 25 mg/dL [facility] Creatinine 1.07 0.70 - 1.25 mg/dL [facility] Comment: For patients >49 years of age, the reference limit for Creatinine is approximately 13% higher for people identified as -[place]. EGFR 75 > OR = 60 mL/min/1 .73m2 [facility] GFR () 87 > OR = 60 mL/min/1 .73m2 [facility] [...] - 3.7 g/dL (calc) [facility] Albumin/Globulin 2.4 1.0 - 2.5 (calc) [facility] Bilirubin Total 3.2(H) 0.2 - 1.2 mg/dL [facility] Alkaline phosphatase 52 35 - 144 U/L [facility] AST (SGOT) 13 10 - 35 U/L [facility] ALT (SGPT) 15 9 - 46 U/L [facility] 01/19/2021 7:47 AM EDT 01/19/2021 9:38 AM EDT Narrative [facility] - 01/19/2021 12:28 PM EDT Please note that this estimated [...] needs for GFR calculation. Resulting Agency Comment [id number] Prince Owens MD LABORATORY Final Resu lt Performing Organization Address [facility]/ZIP Co de Phone Number [facility] [address] [place] [address] * LACTATE DEHYDROGENASE (LDH), SERUM (01/19/2021 7:47 AM EDT) Lactate dehydrogenase 171 120 - 250 U/L [facility] 01/19/2021 7:47 AM EDT 01/19/2021 9:38 AM EDT Narrative Resulting Agency Comment [id number] Prince Owens MD LABORATORY Final Resu lt Performing Organization Address [facility] Co de Phone Number [facility] [address] [place] [address] documented in this encounter Visit Diagnoses Diagnosis Acquired hemolytic anemia (HCC) Acquired hemolytic anemia, unspecified documented in this encounter Care Teams Quarry Supervisor Relationship Specialty Start Date End Date Manoj Agudelo I [place] [address] [place] [address] PCP - General Family Medicine 02/05/18 Prince Owens MD [address] [place] [address] Primary Hem Onc Provider Hematology/Oncology 04/18/25 documented as of this encounter
--- OUTSIDE RECORDS SUMMARY | 2025-07-08 14:31 | XMS_ITS | Encounter Summary ---
Author Organization [facility] Address [address] [place] [address] Care Team Providers Care Loading Shovel Oiler Name Role Phone Manoj Agudelo I Primary Care Provider [phone] Prince Owens MD Unavailable [phone] Encounter Details Date Type Department Care Team ([facility] Contact Info) Description 01/23/2024 Orders Only [facility] Hematology/Oncology [address] [place] [phone] Prince Owens MD [address] [place] [address] Social History Tobacco Use Types Packs/Day Years [...] Care Team ([facility] Contact Info) Description 07/19/2025 9:00 AM EDT Office Visit [facility] Hematology/Oncology [address] [place] [phone] Prince Owens MD [address] [place] [address] R/S from 8-28 due to mother passing away 11/18/2025 2:00 PM EST Office Visit [facility] Dermatology [address] [place] [phone] Iván Guajardo MD [address] [place] [address] Return in about 1 year (around 11/18/2025). documented as of this encounter Procedures * Due to [facility] law, this organization might not be sharing negative HIV tests. Procedure Name Priority Date/Time Associated Diagnosis Comments CBC INCLUDES DIFFERENTIAL AND PLATELET COUNT Routine 01/23/2024 2:19 PM EDT Malignant neoplasm of urinary bladder, unspecified site LACTATE DEHYDROGENASE (LDH), SERUM Routine 01/23/2024 2:19 PM EDT Malignant neoplasm of urinary bladder, unspecified site COMPREHENSIVE METABOLIC PANEL WITH GFR Routine 01/23/2024 2:19 PM EDT Malignant neoplasm of urinary bladder, unspecified site documented in this encounter Results * Due to [facility] law, this organization might not be sharing negative HIV tests. * (ABNORMAL) CBC INCLUDES DIFFERENTIAL AND PLATELET COUNT (01/23/2024 2:19 PM EDT) WBC 5.6 3.8 - 10.8 Thousand/u L [facility] RBC 3.19(L) 4.20 - 5.80 Million/uL [facility] Hemoglobin 10.3(L) 13.2 - 17.1 g/dL [facility] Hematocrit 31.8(L) 38.5 - 50.0 % [facility] MCV 99.7 80.0 - 100.0 fL [facility] MCH 32.3 27.0 - 33.0 pg [facility] MCHC 32.4 32.0 - 36.0 g/dL [facility] RDW 12.8 11.0 - 15.0 % [facility] PLT 227 140 - 400 Thousand/u L [facility] MPV 10.4 7.5 - 12.5 fL [facility] Neutrophils # 3175 1500 - 7800 cells/uL [facility] Lymphocytes # 1887 850 - 3900 cells/uL [facility] Monocytes # 302 200 - 950 cells/uL [facility] Eosinophils # 162 15 - 500 cells/uL [facility] Basophils # 73 0 - 200 cells/uL [facility] Neutrophils % 56.7 % [facility] Lymphocytes % 33.7 % [facility] Monocytes % 5.4 % [facility] Eosinophils % 2.9 % [facility] Basophils % 1.3 % [facility] 01/23/2024 2:19 PM EDT 01/23/2024 11:50 PM EDT Narrative Resulting Agency Comment [id number] us Prince Owens MD LAB SAME DAY RESULT Final Result [facility] [address] [place] [address] * (ABNORMAL) COMPREHENSIVE METABOLIC PANEL WITH GFR (01/23/2024 2:19 PM EDT) Glucose 161(H) 65 - 99 mg/dL [facility] Comment: Fasting reference interval For someone without known diabetes, a glucose value >125 mg/dL indicates that they may have diabetes and this should be confirmed with a follow-up test. Urea Nitrogen Blood (BUN) 19 7 - 25 mg/dL [facility] Creatinine 0.87 0.70 - 1.35 mg/dL [facility] EGFR 97 > OR = 60 mL/min/1. 73m2 [facility] [...] - 2.5 (calc) [facility] Bilirubin Total 4.6(H) 0.2 - 1.2 mg/dL [facility] Alkaline phosphatase 46 35 - 144 U/L [facility] AST (SGOT) 15 10 - 35 U/L [facility] ALT (SGPT) 15 9 - 46 U/L [facility] 01/23/2024 2:19 PM EDT 01/23/2024 11:50 PM EDT Narrative [facility] - 01/24/2024 5:50 AM EDT Please note that this estimated [...] needs for GFR calculation. Resulting Agency Comment [id number] Prince Owens MD LABORATORY Final Resu lt Performing Organization Address [facility] Co de Phone Number [facility] [address] [place] [address] * LACTATE DEHYDROGENASE (LDH), SERUM (01/23/2024 2:19 PM EDT) Lactate dehydrogenase 217 120 - 250 U/L [facility] 01/23/2024 2:19 PM EDT 01/23/2024 11:50 PM EDT Narrative Resulting Agency Comment [id number] Prince Owens MD LABORATORY Final Resu lt Performing Organization Address [facility] Co de Phone Number [facility] [address] [place] [address] documented in this encounter Visit Diagnoses Diagnosis Malignant neoplasm of urinary bladder, unspecified site (HCC) documented in this encounter Care Teams Loading Shovel Oiler Relationship Specialty Start Date End Date Manoj Agudelo I [address] [phone] PCP - General Family Medicine 02/05/18 Prince Owens MD [address] [place] [address] Primary Hem Onc Provider Hematology/Oncology 04/18/25 documented as of this encounter
--- OUTSIDE RECORDS SUMMARY | 2025-07-08 14:31 | XMS_ITS | Encounter Summary ---
Author Organization [facility] Address [address] [place] [address] Care Team Providers Care Explosives Handler Name Role Phone Manoj Agudelo I Primary Care Provider [phone] Prince Owens MD Unavailable [phone] Encounter Details Date Type Department Care Team (Late st Contact Info) Description 03/27/2024 Orders Only [facility] Hematology/Oncology [address] [place] [phone] Prince Owens MD [address] [place] [address] Social History Tobacco Use Types Packs/Day Years [...] Encounter Note - Prince Owens MD - 03/27/2024 9:56 AM EDT Notified patient of results via [employer] [place] message. documented in this encounter Plan of Treatment Upcoming Encounters Date Type Department Care Team (Late st Contact Info) Description 07/19/2025 9:00 AM EDT Office Visit [facility] Hematology/Oncology [address] [place] [phone] Prince Owens MD [address] [place] [address] R/S from 8- due to mother passing away 11/18/2025 2:00 PM EST Office Visit [facility] Dermatology [address] [place] [phone] Iván Guajardo MD [address] [place], [place] [phone] Return in about 1 year (around 11/18/2025). documented as of this encounter Procedures * Due to [place] [employer] law, this organization might not be sharing negative HIV tests. Procedure Name Priority Date/Time Associated Diagnosis Comments CBC INCLUDES DIFFERENTIAL AND PLATELET COUNT Routine 03/27/2024 9:56 AM EDT Malignant neoplasm of urinary bladder, unspecified site LACTATE DEHYDROGENASE (LDH), SERUM Routine 03/27/2024 9:56 AM EDT Malignant neoplasm of urinary bladder, unspecified site COMPREHENSIVE METABOLIC PANEL WITH GFR Routine 03/27/2024 9:56 AM EDT Malignant neoplasm of urinary bladder, unspecified site documented in this encounter Results * Due to [place] [employer] law, this organization might not be sharing negative HIV tests. * (ABNORMAL) CBC INCLUDES DIFFERENTIAL AND PLATELET COUNT (03/27/2024 9:56 AM EDT) WBC 5.7 3.8 - 10.8 Thousand/u L [facility] RBC 2.63(L) 4.20 - 5.80 Million/uL [facility] Hemoglobin 8.5(L) 13.2 - 17.1 g/dL [facility] Hematocrit 26.5(L) 38.5 - 50.0 % [facility] MCV 100.8(H) 80.0 - 100.0 fL [facility] MCH 32.3 27.0 - 33.0 pg [facility] MCHC 32.1 32.0 - 36.0 g/dL [facility] RDW 18.1(H) 11.0 - 15.0 % [facility] PLT 187 140 - 400 Thousand/u L [facility] MPV 10.0 7.5 - 12.5 fL [facility] Neutrophils # 3260 1500 - 7800 cells/uL [facility] Lymphocytes # 1773 850 - 3900 cells/uL [facility] Monocytes # 371 200 - 950 cells/uL [facility] Eosinophils # 268 15 - 500 cells/uL [facility] Basophils # 29 0 - 200 cells/uL [facility] Neutrophils % 57.2 % [facility] Lymphocytes % 31.1 % [facility] Monocytes % 6.5 % [facility] Eosinophils % 4.7 % [facility] Basophils % 0.5 % [facility] 03/27/2024 9:56 AM EDT 03/27/2024 10:13 PM EDT Narrative Resulting Agency Comment [id number] us Prince Owens MD LAB SAME DAY RESULT Final Result [facility] [address] [place] [address] * (ABNORMAL) COMPREHENSIVE METABOLIC PANEL WITH GFR (03/27/2024 9:56 AM EDT) Glucose 274(H) 65 - 99 mg/dL [facility] Comment: Fasting reference interval For someone without known diabetes, a glucose value >125 mg/dL indicates that they may have diabetes and this should be confirmed with a follow-up test. Urea Nitrogen Blood (BUN) 18 7 - 25 mg/dL [facility] Creatinine 1.14 0.70 - 1.35 mg/dL [facility] EGFR 72 > OR = 60 mL/min/1. 73m2 [facility] BUN/Creatinine Ratio SEE NOTE: 6 - 22 (calc) [facility] Comment: Not Reported: BUN and Creatinine are within reference range. Sodium 140 135 - 146 mmol/L [facility] Potassium 4.6 3.5 - 5.3 mmol/L [facility] Chloride [...] - 2.5 (calc) [facility] Bilirubin Total 4.5(H) 0.2 - 1.2 mg/dL [facility] Alkaline phosphatase 67 35 - 144 U/L [facility] AST (SGOT) 18 10 - 35 U/L [facility] ALT (SGPT) 30 9 - 46 U/L [facility] 03/27/2024 9:56 AM EDT 03/27/2024 10:13 PM EDT Narrative [facility] - 03/27/2024 11:59 PM EDT Please note that this estimated [...] needs for GFR calculation. Resulting Agency Comment [id number] Prince Owens MD LABORATORY Final Resu lt [facility] [address] [place] [address] * LACTATE DEHYDROGENASE (LDH), SERUM (03/27/2024 9:56 AM EDT) Lactate dehydrogenase 245 120 - 250 U/L [facility] 03/27/2024 9:56 AM EDT 03/27/2024 10:13 PM EDT Narrative Resulting Agency Comment [id number] Prince Owens MD LABORATORY Final Resu lt [facility] [address] [place] [address] documented in this encounter Visit Diagnoses Diagnosis Malignant neoplasm of urinary bladder, unspecified site (HCC) documented in this encounter Care Teams Explosives Handler Relationship Specialty Start Date End Date Manoj Agudelo: [phone] [facility] [address] [place] [phone] PCP - General Family Medicine 02/05/18 Prince Owens MD [address] [place] [address] Primary Hem Onc Provider Hematology/Oncology 04/18/25 documented as of this encounter
--- OUTSIDE RECORDS SUMMARY | 2025-07-08 14:31 | XMS_ITS | Encounter Summary ---
Author Organization [facility] Address [address] [place] [address] Care Team Providers Care Rod Pointer Name Role Phone Manoj Agudelo I Primary Care Provider [phone] Prince Owens MD Unavailable [phone] Encounter Details Date Type Department Care Team (Late st Contact Info) Description 07/30/2021 Orders Only [facility] Hematology/Oncology [address] [phone] Prince Owens MD [address] [place] [address] Social History Tobacco Use Types Packs/Day Years Used Date Smoking Tobacco: Never Cigarettes Smokeless Tobacco: Never Sex and Gender Information Value Date Recorded Sex Assigned at Not on file Legal Sex Male 10:51 PM EDT Gender Identity Not on file Sexual Orientation Not on file documented as of this encounter Miscellaneous Notes * Result Encounter Note - Prince Owens MD - 07/30/2021 7:25 AM EDT Results discussed at visit. See visit note for details. documented in this encounter Plan of Treatment Upcoming Encounters Date Type Department Care Team (Late st Contact Info) Description 07/19/2025 9:00 AM EDT Office Visit [facility] Hematology/Oncology [address] [place] [phone] Prince Owens MD [address] [place] [address] R/S from 8-28 due to mother passing away 11/18/2025 2:00 PM EST Office Visit [facility] Dermatology [address] [place] [phone] Iván Guajardo MD [address] [place] [address] Return in about 1 year (around 11/18/2025). documented as of this encounter Procedures * Due to [place] [employer] law, this organization might not be sharing negative HIV tests. Procedure Name Priority Date/Time Associated Diagnosis Comments CBC INCLUDES DIFFERENTIAL AND PLATELET COUNT Routine 07/30/2021 7:25 AM EDT Acquired hemolytic anemia VENIPUNCTURE Routine 07/30/2021 7:25 AM EDT Acquired hemolytic anemia COMPREHENSIVE METABOLIC PANEL WITH GFR Routine 07/30/2021 7:25 AM EDT Acquired hemolytic anemia documented in this encounter Results * Due to [place] [employer] law, this organization might not be sharing negative HIV tests. * (ABNORMAL) CBC INCLUDES DIFFERENTIAL AND PLATELET COUNT (07/30/2021 7:25 AM EDT) WBC 6.3 3.8 - 10.8 Thousand/u L [facility] RBC 2.49(L) 4.20 - 5.80 Million/uL [facility] Hemoglobin 8.4(L) 13.2 - 17.1 g/dL [facility] Hematocrit 25.7(L) 38.5 - 50.0 % [facility] MCV 103.2(H) 80.0 - 100.0 fL [facility] MCH 33.7(H) 27.0 - 33.0 pg [facility] MCHC 32.7 32.0 - 36.0 g/dL [facility] RDW 13.1 11.0 - 15.0 % [facility] PLT 216 140 - 400 Thousand/u L [facility] MPV 10.0 7.5 - 12.5 fL [facility] Neutrophils # 3383 1500 - 7800 cells/uL [facility] Lymphocytes # 2136 850 - 3900 cells/uL [facility] Monocytes # 542 200 - 950 cells/uL [facility] Eosinophils # 202 15 - 500 cells/uL [facility] Basophils # 38 0 - 200 cells/uL [facility] Neutrophils % 53.7 % [facility] Lymphocytes % 33.9 % [facility] Monocytes % 8.6 % [facility] Eosinophils % 3.2 % [facility] Basophils % 0.6 % [facility] 07/30/2021 7:25 AM EDT 07/30/2021 9:54 AM EDT Narrative Resulting Agency Comment [id number] Prince Owens MD LAB SAME DAY RESULT Final Result [facility] [address] [place] [address] * (ABNORMAL) COMPREHENSIVE METABOLIC PANEL WITH GFR (07/30/2021 7:25 AM EDT) Glucose 116(H) 65 - 99 mg/dL [facility] [...] approximately 13% higher for people identified as -[place]. EGFR 74 > OR = 60 mL/min/1 .73m2 [facility] GFR () 85 > OR = 60 mL/min/1 .73m2 [facility] BUN/Creatinine Ratio NOT APPLICABLE 6 - 22 (calc) [facility] Sodium 140 135 - 146 mmol/L [facility] Potassium 3.6 3.5 - 5.3 mmol/L [facility] Chloride [...] - 2.5 (calc) [facility] Bilirubin Total 5.3(H) 0.2 - 1.2 mg/dL [facility] Alkaline phosphatase 55 35 - 144 U/L [facility] AST (SGOT) 15 10 - 35 U/L [facility] ALT (SGPT) 15 9 - 46 U/L [facility] 07/30/2021 7:25 AM EDT 07/30/2021 9:54 AM EDT Narrative [facility] - 07/30/2021 8:29 PM EDT Please note that this estimated [...] needs for GFR calculation. Resulting Agency Comment [id number] Prince Owens MD LABORATORY Final Resu lt Performing Organization Address [facility]/ZIP Co de Phone Number [facility] [address] [place] [address] * LACTATE DEHYDROGENASE (LDH), SERUM (07/30/2021 7:25 AM EDT) Lactate dehydrogenase 226 120 - 250 U/L [facility] 07/30/2021 7:25 AM EDT 07/30/2021 9:54 AM EDT Narrative Resulting Agency Comment [id number] Prince Owens MD LABORATORY Final Resu lt Performing Organization Address [facility] Co de Phone Number [facility] [address] [place] [address] documented in this encounter Visit Diagnoses Diagnosis Acquired hemolytic anemia (HCC) Acquired hemolytic anemia, unspecified documented in this encounter Care Teams Rod Pointer Relationship Specialty Start Date End Date Manoj Agudelo I [place] [address] [place] [phone] PCP - General Family Medicine 02/05/18 Prince Owens MD [address] [place] [address] Primary Hem Onc Provider Hematology/Oncology 04/18/25 documented as of this encounter
--- OUTSIDE RECORDS SUMMARY | 2025-07-08 14:31 | XMS_ITS | Encounter Summary ---
Author Organization [facility] Address [address] [place] [address] Care Team Providers Care Economic Analysis Director Name Role Phone Manoj Agudelo I Primary Care Provider [phone] Prince Owens MD Unavailable [phone] Encounter Details Date Type Department Care Team (Late st Contact Info) Description 09/11/2023 Orders Only [facility] Hematology/Oncology [address] [place] [phone] Prince Owens MD [address] [place] [address] Social History Tobacco Use Types Packs/Day Years [...] Encounter Note - Prince Owens MD - 09/11/2023 1:28 PM EST Notified patient of results via [employer] message. documented in this encounter Plan of Treatment Upcoming Encounters Date Type Department Care Team (Late st Contact Info) Description 07/19/2025 9:00 AM EDT Office Visit [facility] Hematology/Oncology [address] [place] [phone] Prince Owens MD [address] [place] [address] R/S from 8- due to mother passing away 11/18/2025 2:00 PM EST Office Visit [facility] Dermatology [address] [place] [phone] Iván Guajardo MD [address] [place], [place] [phone] Return in about 1 year (around 11/18/2025). documented as of this encounter Procedures * Due to [place] [employer] law, this organization might not be sharing negative HIV tests. Procedure Name Priority Date/Time Associated Diagnosis Comments CBC INCLUDES DIFFERENTIAL AND PLATELET COUNT Routine 09/11/2023 1:28 PM EST Acquired hemolytic anemia LACTATE DEHYDROGENASE (LDH), SERUM Routine 09/11/2023 1:28 PM EST Acquired hemolytic anemia COMPREHENSIVE METABOLIC PANEL WITH GFR Routine 09/11/2023 1:28 PM EST Acquired hemolytic anemia documented in this encounter Results * Due to [place] [employer] law, this organization might not be sharing negative HIV tests. * (ABNORMAL) CBC INCLUDES DIFFERENTIAL AND PLATELET COUNT (09/11/2023 1:28 PM EST) WBC 5.3 3.8 - 10.8 Thousand/u L [facility] RBC 2.66(L) 4.20 - 5.80 Million/uL [facility] Hemoglobin 8.9(L) 13.2 - 17.1 g/dL [facility] Hematocrit 27.6(L) 38.5 - 50.0 % [facility] MCV 103.8(H) 80.0 - 100.0 fL [facility] MCH 33.5(H) 27.0 - 33.0 pg [facility] MCHC 32.2 32.0 - 36.0 g/dL [facility] RDW 13.8 11.0 - 15.0 % [facility] PLT 267 140 - 400 Thousand/u L [facility] MPV 9.9 7.5 - 12.5 fL [facility] Neutrophils # 3053 1500 - 7800 cells/uL [facility] Lymphocytes # 1664 850 - 3900 cells/uL [facility] Monocytes # 392 200 - 950 cells/uL [facility] Eosinophils # 159 15 - 500 cells/uL [facility] Basophils # 32 0 - 200 cells/uL [facility] Neutrophils % 57.6 % [facility] Lymphocytes % 31.4 % [facility] Monocytes % 7.4 % [facility] Eosinophils % 3.0 % [facility] Basophils % 0.6 % [facility] 09/11/2023 1:28 PM EST 09/11/2023 11:39 PM EST Narrative Resulting Agency Comment [id number] Prince Owens MD LAB SAME DAY RESULT Final Result [facility] [address] [place] [address] * (ABNORMAL) COMPREHENSIVE METABOLIC PANEL WITH GFR (09/11/2023 1:28 PM EST) Glucose 145(H) 65 - 99 mg/dL [facility] Comment: [...] 20 9 - 46 U/L [facility] 09/11/2023 1:28 PM EST 09/11/2023 11:39 PM EST Narrative [facility] - 09/12/2023 3:49 AM EST Please note that this estimated [...] needs for GFR calculation. Resulting Agency Comment [id number] Prince Owens MD LABORATORY Final Resu lt Performing Organization Address City/[facility]/ZIP Co de Phone Number [facility] [address] [place] [address] * LACTATE DEHYDROGENASE (LDH), SERUM (09/11/2023 1:28 PM EST) Lactate dehydrogenase 225 120 - 250 U/L [facility] 09/11/2023 1:28 PM EST 09/11/2023 11:39 PM EST Narrative Resulting Agency Comment [id number] Prince Owens MD LABORATORY Final Resu lt Performing Organization Address City/[facility]/ZIP Co de Phone Number [facility] [address] [place] [address] documented in this encounter Visit Diagnoses Diagnosis Acquired hemolytic anemia (HCC) Acquired hemolytic anemia, unspecified documented in this encounter Care Teams Economic Analysis Director Relationship Specialty Start Date End Date Manoj Agudelo I [address] [phone] PCP - General Family Medicine 02/05/18 Prince Owens MD [address] [place] [address] Primary Hem Onc Provider Hematology/Oncology 04/18/25 documented as of this encounter
--- OUTSIDE RECORDS SUMMARY | 2025-07-08 14:31 | XMS_ITS | Encounter Summary ---
Author Organization [facility] Address [address] [place] [address] Care Team Providers Care Curb Supervisor Name Role Phone SantinochristianeManoj I Primary Care Provider [phone] Prince Owens MD Unavailable [phone] Encounter Details Date Type Department Care Team (Late Contact Info) Description 08/06/2021 Orders Only [facility] Hematology/Oncology [address] [phone] Prince Owens MD [address] [place] [address] Social History Tobacco Use Types Packs/Day Years Used Date Smoking Tobacco: Never Cigarettes Smokeless Tobacco: Never Sex and Gender Information Value Date Recorded Sex Assigned at Not on file Legal Sex Male 10:51 PM EDT Gender Identity Not on file Sexual Orientation Not on file documented as of this encounter Miscellaneous Notes * Result Encounter Note - Prince Owens MD - 08/06/2021 7:30 AM EDT Numbers starting to improve without intervention. I would check again in a week. documented in this encounter Plan of Treatment Upcoming Encounters Date Type Department Care Team (Late st Contact Info) Description 07/19/2025 9:00 AM EDT Office Visit [facility] Hematology/Oncology [address] [place] [phone] Prince Owens MD [address] [place] [address] R/S from 8-28 due to mother passing away 11/18/2025 2:00 PM EST Office Visit [facility] Dermatology [address] [place] [phone] Iván Guajardo MD [address] [place] [address] Return in about 1 year (around 11/18/2025). documented as of this encounter Procedures * Due to [place] [employer] law, this organization might not be sharing negative HIV tests. Procedure Name Priority Date/Time Associated Diagnosis Comments CBC INCLUDES DIFFERENTIAL AND PLATELET COUNT Routine 08/06/2021 7:30 AM EDT Acquired hemolytic anemia VENIPUNCTURE Routine 08/06/2021 7:30 AM EDT Acquired hemolytic anemia COMPREHENSIVE METABOLIC PANEL WITH GFR Routine 08/06/2021 7:30 AM EDT Acquired hemolytic anemia documented in this encounter Results * Due to [place] [employer] law, this organization might not be sharing negative HIV tests. * (ABNORMAL) CBC INCLUDES DIFFERENTIAL AND PLATELET COUNT (08/06/2021 7:30 AM EDT) WBC 4.9 3.8 - 10.8 Thousand/u L [facility] RBC 2.53(L) 4.20 - 5.80 Million/uL [facility] Hemoglobin 8.6(L) 13.2 - 17.1 g/dL [facility] Hematocrit 26.3(L) 38.5 - 50.0 % [facility] MCV 104.0(H) 80.0 - 100.0 fL [facility] MCH 34.0(H) 27.0 - 33.0 pg [facility] MCHC 32.7 32.0 - 36.0 g/dL [facility] RDW 13.3 11.0 - 15.0 % [facility] PLT 193 140 - 400 Thousand/u L [facility] MPV 10.0 7.5 - 12.5 fL [facility] Neutrophils # 2548 1500 - 7800 cells/uL [facility] Lymphocytes # 1789 850 - 3900 cells/uL [facility] Monocytes # 377 200 - 950 cells/uL [facility] Eosinophils # 157 15 - 500 cells/uL [facility] Basophils # 29 0 - 200 cells/uL [facility] Neutrophils % 52 % [facility] Lymphocytes % 36.5 % [facility] Monocytes % 7.7 % [facility] Eosinophils % 3.2 % [facility] Basophils % 0.6 % [facility] 08/06/2021 7:30 AM EDT 08/06/2021 10:10 AM EDT Narrative Resulting Agency Comment [id number] Prince Owens MD LAB SAME DAY RESULT Final Result [facility] [address] [place] [address] * (ABNORMAL) COMPREHENSIVE METABOLIC PANEL WITH GFR (08/06/2021 7:30 AM EDT) Glucose 119(H) 65 - 99 mg/dL [facility] Comment: Fasting reference interval For someone without known diabetes, a glucose value between 100 and 125 mg/dL is consistent with prediabetes and should be confirmed with a follow-up test. Urea Nitrogen Blood (BUN) 15 7 - 25 mg/dL [facility] Creatinine 1.05 0.70 - 1.25 mg/dL [facility] Comment: For patients >49 years of age, the reference limit for Creatinine is approximately 13% higher for people identified as -[place] Irish. EGFR 76 > OR = 60 mL/min/1 .73m2 [facility] GFR () 88 > OR = 60 mL/min/1 .73m2 [facility] BUN/Creatinine Ratio NOT APPLICABLE 6 - 22 (calc) [facility] Sodium 141 135 - 146 mmol/L [facility] [...] - 35 U/L [facility] ALT (SGPT) 14 9 - 46 U/L [facility] 08/06/2021 7:30 AM EDT 08/06/2021 10:10 AM EDT Narrative [facility] - 08/06/2021 3:47 PM EDT Please note that this estimated [...] needs for GFR calculation. Resulting Agency Comment [id number] Prince Owens MD LABORATORY Final Resu lt Performing Organization Address [facility] Co de Phone Number [facility] [address] [place] [address] * LACTATE DEHYDROGENASE (LDH), SERUM (08/06/2021 7:30 AM EDT) Lactate dehydrogenase 201 120 - 250 U/L [facility] 08/06/2021 7:30 AM EDT 08/06/2021 10:10 AM EDT Narrative Resulting Agency Comment [id number] Prince Owens MD LABORATORY Final Resu lt Performing Organization Address [facility] Co de Phone Number [facility] [address] [place] [address] documented in this encounter Visit Diagnoses Diagnosis Acquired hemolytic anemia (HCC) Acquired hemolytic anemia, unspecified documented in this encounter Care Teams Curb Supervisor Relationship Specialty Start Date End Date Manoj Agudelo I [place] [address] [place] [phone] PCP - General Family Medicine 02/05/18 Prince Owens MD [address] [place] [address] Primary Hem Onc Provider Hematology/Oncology 04/18/25 documented as of this encounter
--- OUTSIDE RECORDS SUMMARY | 2025-07-08 14:32 | XMS_ITS | Encounter Summary ---
Author Organization [facility] Address [address] [place] [address] Care Team Providers Care Insurance Agency Manager Name Role Phone SantinochristianeManoj I Primary Care Provider [phone] Prince Owens MD Unavailable [phone] Encounter Details Date Type Department Care Team ([facility] Contact Info) Description 01/18/2019 Orders Only [facility] Hematology/Oncology [address] [phone] Prince Owens MD [address] [place] [address] Social History Tobacco Use Types Packs/Day Years Used Date Smoking Tobacco: Never Cigarettes Smokeless Tobacco: Never Sex and Gender Information Value Date Recorded Sex Assigned at Not on file Legal Sex Male 10:51 PM EDT Gender Identity Not on file Sexual Orientation Not on file documented as of this encounter Progress Notes * Prince Owens MD - 01/19/2019 9:28 AM EDT Labs look good.. Stable Hemoglobin documented in this encounter Plan of Treatment Upcoming Encounters Date Type Department Care Team (Late Contact Info) Description 07/19/2025 9:00 AM EDT Office Visit [facility] Hematology/Oncology [address] [place] [phone] Prince Owens MD [address] [place] [address] R/S from 8-28 due to mother passing away 11/18/2025 2:00 PM EST Office Visit [facility] Dermatology [address] [place] [phone] Iván Guajardo MD [address] [place] [address] Return in about 1 year (around 11/18/2025). documented as of this encounter Procedures * Due to [place] [employer] law, this organization might not be sharing negative HIV tests. Procedure Name Priority Date/Time Associated Diagnosis Comments CBC INCLUDES DIFFERENTIAL AND PLATELET COUNT Routine 01/18/2019 5:52 PM EDT Acquired hemolytic anemia COMPREHENSIVE METABOLIC PANEL WITH GFR Routine 01/18/2019 5:52 PM EDT Acquired hemolytic anemia LACTATE DEHYDROGENASE (LDH), SERUM Routine 01/18/2019 5:51 PM EDT Acquired hemolytic anemia documented in this encounter Results * Due to [place] [employer] law, this organization might not be sharing negative HIV tests. * (ABNORMAL) COMPREHENSIVE METABOLIC PANEL WITH GFR (01/18/2019 5:52 PM EDT) Glucose 74 65 - 99 mg/dl [facility] Urea Nitrogen Blood (BUN) 24 7 - 25 mg/dL [facility] Creatinine 1.13 0.50 - 1.20 mg/dL [facility] Sodium 143 136 - 145 mmo/L [facility] Potassium 4.3 3.5 - 5.3 mmol/L [facility] Chloride 105 98 - 107 mmo/L [facility] Calcium 9.7 8.5 - 10.4 mg/dL [facility] Protein Total (Serum) 7.3 6.0 - 8.3 g/dL [facility] Albumin 5.0 3.5 - 5.3 g/dL [facility] Globulin 2 2 - 4 G/DL [facility] Bilirubin Total 3.31(H) 0.00 - 1.20 mg/dL [facility] Alkaline phosphatase 60 40 - 115 U/L [facility] AST (SGOT) 19 <45 U/L [facility] ALT (SGPT) 18 <67 U/L [facility] Carbon dioxide 26 23 - 33 mmol/L [facility] GFR 71 >60 ml/min [facility] Comment:If the patient is Af rican [place], please multiply result by 1.210 01/18/2019 5:52 PM EDT 01/18/2019 5:52 PM EDT Narrative [facility] - 01/18/2019 7:05 PM EDT Patient's primary care provider is: N/A Testing performed at: [facility], [address] [place] [address], [id number], Audit Clerk: Bairon Kevin MD us Prince Owens MD LABORATORY Final Resu lt [address] [address] DIRECTOR Bairon Kevin MD * (ABNORMAL) CBC INCLUDES DIFFERENTIAL AND PLATELET COUNT (01/18/2019 5:52 PM EDT) WBC 7.8 3.8 - 10.8 K/uL [facility] Neutrophils # 3.0 1.5 - 7.8 K/uL [facility] Immature Granulocytes # 0.0 0.0 - 0.1 K/uL [facility] Lymphocytes # 4.1(H) 0.9 - 3.9 K/uL [facility] Monocytes # 0.5 0.2 - 1.0 K/uL [facility] Eosinophils # 0.2 0.0 - 0.5 K/uL [facility] Basophils # 0.0 0.0 - 0.2 K/uL [facility] Neutrophils % 38.2 % [facility] Immature Granulocytes % 0.30 % [facility] Lymphocytes % 52.5 % [facility] Monocytes % 6.3 % [facility] Eosinophils % 2.3 % [facility] Basophils % 0.4 % [facility] RBC 3.24(L) 4.20 - 5.80 M/uL [facility] Hemoglobin 10.7(L) 13.2 - 17.1 g/dL [facility] Hematocrit 33.3(L) 38.5 - 50.0 % [facility] MCV 102.8(H) 80.0 - 100.0 fl [facility] MCH 33.0 27.0 - 33.0 pg [facility] MCHC 32.1 32.0 - 36.0 g/dL [facility] RDW 14.9 11.0 - 15.0 % [facility] PLT 240 140 - 400 K/uL [facility] 01/18/2019 5:52 PM EDT 01/18/2019 5:52 PM EDT Narrative [facility] - 01/18/2019 6:12 PM EDT Patient's primary care provider is: N/A Testing performed at: [facility], [address] [place] [address], [id number], Audit Clerk: Bairon Kevin MD Prince Owens MD LAB SAME DAY RESULT Final Result Performing Organization Address [facility]/ZIP Co de Phone Number [address] [address] DIRECTOR Bairon Kevin MD * LACTATE DEHYDROGENASE (LDH), SERUM (01/18/2019 5:51 PM EDT) Lactate dehydrogenase 190 120 - 250 U/L [facility] 01/18/2019 5:51 PM EDT 01/19/2019 2:52 AM EDT Narrative Resulting Agency Comment [id number] Prince Owens MD LABORATORY Final Resu lt [facility] [address] [place] [address] documented in this encounter Visit Diagnoses Diagnosis Acquired hemolytic anemia (HCC) Acquired hemolytic anemia, unspecified documented in this encounter Care Teams Insurance Agency Manager Relationship Specialty Start Date End Date Manoj Agudelo I [facility] [address] [place] [phone] PCP - General Family Medicine 02/05/18 Prince Owens MD [address] [place] [address] Primary Hem Onc Provider Hematology/Oncology 04/18/25 documented as of this encounter
--- OUTSIDE RECORDS SUMMARY | 2025-07-08 14:32 | XMS_ITS | Clinical Summary ---
Author Organization [facility] Address [address] [facility] [address] [place] [id number] Phone Care Team Providers Care Bowling Ball Mold Assembler Name Role Phone Manoj Agudelo MD Primary Care Provider Prince Owens MD Unavailable [phone] Allergies No known active allergies Medications INSULIN GLARGINE,HUM.REC .ANLOG (LANTUS SOLOSTAR U-100 INSULIN SUBQ) Inject under the skin. Active folic acid (FOLVITE) 800 MCG tabletIndication s:Acquired hemolytic anemia Take 800 mcg by mouth daily. Active Active Problems Problem Noted Date Diagnosed Date Acquired hemolytic anemia 01/19/2018 Leg cramps 01/19/2018 Calculus of gallbladder without cholecystitis Shortness of breath 11/28/2017 GERD (gastroesophageal reflux disease) 8 Overview (01/19/2018): Last Assessment & Plan: 11/11/2017 Patient with GERD managed with omeprazole 20mg po qday since 2005. GERD sx usually well controlled. Has never had an EGD. Reports having some heartburn last week due to being worried that his urine was dark, but no active signs of bleeding. Occult blood testing negative in ED. -continue omeprazole Hyperlipidemia 11/11/2017 Overview (01/19/2018): Last Assessment & Plan: 11/11/2017 Patient with HLD managed with Lipitor 10mg po qday -continue Lipitor HTN (hypertension) 11/11/2017 Overview (01/19/2018): Last Assessment & Plan: 11/11/2017 Patient with HTN managed with lisinopril 10mg po qday. BP on admission stable, SBP 110-137. -continue lisinopril -monitor BP Type 2 diabetes mellitus 11/11/2017 Overview (01/19/2018): Last Assessment & Plan: 11/11/2017 Patient with DM2 managed with Janumet 100-2000mg po qday -hold janumet -low ISS Bladder stones 07/21/2014 Resolved Problems Problem Noted Date Diagnosed Date Resolved Date Bladder cancer 03/21/2015 01/19/2018 Overview (01/19/2018): Last Assessment & Plan: 11/11/2017 Patient with hx of bladder cancer stage 0, followed by Dr. Mora, and finished treatment with BCG about 1 year ago. UA negative for hematuria. -not an active issue Family History Medical History Relation Comments Diabetes Father Heart disease Father Arthritis Mother Stroke Mother Relation Status Comments Father Mother Social History Tobacco Use Types Packs/Day Years Used Date Smoking Tobacco: Former Smokeless Tobacco: Never Alcohol Use Standard Drinks/Week Comments Yes 1 (1 standard drink = 0.6 oz pur e alcohol) Education Answer Date Recorded Are you interested in more education? Not on jarett e 02/28/2023 Are you concerned about learning? Not on file 02/28/2023 No 02/28/2023 No 02/28/2023 Digital Access Answer Date Recorded No 04/01/2023 No 04/01/2023 No 04/01/2023 Reliable internet access at home? Not on file 04/01/2023 Device with a working camera? Not on file Sex and Gender Information Value Date Recorded Sex Assigned at Not on file Legal Sex Male 3:55 PM EST Gender Identity Not on file Sexual Orientation Not on file Last Filed Vital Signs Vital Sign Reading Time Taken Comments Blood Pressure 121/64 01/25/2025 1:07 PM EDT Pulse 78 01/25/2025 1:07 PM EDT Temperature 37.1 C (98.8 F) 01/25/2025 1:07 PM EDT Respiratory Rate 17 01/25/2025 1:07 PM EDT Oxygen Saturation 96% 01/25/2025 1:07 PM EDT Inhaled Oxygen Concentration - - Weight 86.1 kg (189 lb 12.8 oz) 01/25/2025 1:07 PM EDT Height 173 cm (5' 8.11 ) 10/26/2024 11: 43 AM EST Body Mass Index 28.77 10/26/2024 11:43 AM EST Plan of Treatment Upcoming Encounters Date Type Department Care Team (Late st Contact Info) Description 07/26/2025 11:30 AM EDT Blood Draw [facility] [address] [place] [address], 7th Floor, [address] [place] [address] Simon Mancia MD, PhD [address] [place] [address] [address] [email or web address] Simon Rangel MD, DPHIL [address] [place] [address] [email or web address] 07/26/2025 12:30 PM EDT Office Visit [facility] [address] [place] [address], 7th Floor, [address] [place] [address] Simon Rangel MD, DPHIL [address] [place] [id number] [email or web address] Health Maintenance Due Date Last Done Comments SMOKING Hx and SMOKELESS TOBACCO SCREENING 1973 HEPATITIS C SCREENING 1978 HIV ONE-TIME SCREENING (18-65 YEARS) 1978 COLOGUARD 2005 COLONOSCOPY 2005 COLORECTAL CANCER SCREENING 2005 FIT TEST 2005 FOBT 2005 SIGMOIDOSCOPY 2005 VIRTUAL COLONOSCOPY 2005 ZOSTER VACCINES (1 of 2) 2010 DIABETIC EYE EXAM 01/19/2018 DEPRESSION SCREENING 05/04/2019 05/04/2018 RSV VACCINE (1 - Risk 60-74 years 1-dose series) 2020 INFLUENZA VACCINE (#1) 2025 ABDOMINAL AORTIC ANEURYSM (AAA) SCREENING 2025 COVID-19 VACCINE ( - season) 2025 BLOOD PRESSURE 07/28/2025 01/25/2025 HEMOGLOBIN A1C 07/28/2025 01/25/2025, 10/04, 05/03/2024, Additional history exists LIPID PANEL 09/21/2025 09/21/2024, 09/03, 05/16/2023, Additional history exists URINE MICROALBUMIN/CREATININE RATIO 09/21/2025 09/21/2024, 11/13/2023, 11/07/2022 Adult Td,Tdap Booster 11/14/2030 11/14/2020 PNEUMOCOCCAL VACCINES (50+ years) Completed 04/30/2024 HEPATITIS A VACCINES Aged Out No long er eligible based on patient's age to complete this topic HIB VACCINES Aged Out No longer eligi ble based on patient's age to complete this topic MENINGOCOCCAL VACCINES (ACWY) Aged Out No longer eligible based on patient's age to complete this topic MENINGOCOCCAL VACCINES (B) Aged Out N o longer eligible based on patient's age to complete this topic Medical Devices Not on file Procedures Procedure Name Priority Date/Time Associated Diagnosis Comments HEMOGLOBIN A1C Routine 01/25/2025 12:01 PM EDT Acquired hemolytic anemia LIPID PANEL Routine 05/04/2018 1:52 PM EDT Dyspnea, unspecified type from Last 3 Months or Most Recently Relevant to Health Maintenance Results * Hemoglobin A1c (01/25/2025 12:01 PM EDT) HEMOGLOBIN A1C 4.4 4.3 - 5.6 % [facility] Comment:HbA1c levels 5.7-6.4 % represent pre-diabetes, indicating impaired glucose control and an increased risk of developing diabetes compared with lower HbA1c levels. The diagnostic HbA1c level for diabetes is 6.5% or greater. CALC MEAN BLD GLUC NOT DONE mg/dL [facility] Comment: A1C <4.5 There is no established normal range for the Calculated Mean Blood Glucose (CMBG), however a HbA1c of 5.6% (upper limit of normal) represents a CMBG of 114 mg/dL. The diagnostic hemoglobin A1c level for diabetes is greater than or equal to 6.5% which represents a CMBG greater than or equal to 140 mg/dL. 01/25/2025 12:0 1 PM EDT 01/25/2025 12:14 PM EDT us Simon Rangel MD, DPHIL LAB BLOOD ORDERABLES Final Result Performing Organization Address City/[facility]/ZIP Co de Phone Number [facility] [address] [place] [address] * (ABNORMAL) Lipid panel (05/04/2018 1:52 PM EDT) CHOLESTEROL 152 <200 mg/dL [facility] Comment: TRIGLYCERIDES 497(H) 35 - 150 mg/dL [facility] Comment: HDL 32(L) 40 - 80 mg/dL [facility] Comment: CALCULATED LDL NOT CALCULATED 50 - 129 mg/dL [facility] CARDIAC RISK RATIO 4.8(H) 0.0 - 4.0 [facility] 05/04/2018 1:52 PM EDT 05/04/2018 2:56 PM EDT us Walter Clifton MD LAB BLOOD ORDERABLES Final Resu lt Performing Organization Address City/[facility] Co de Phone Number [facility] [address] [place] [address] from Last 3 Months or Most Recently Relevant to Health Maintenance Insurance [facility] FEDERAL MEDICARE A [employer] [facility] MEDICARE A [facility] MEDICARE A [facility] MEDICARE A [facility] MEDICARE A [facility] MEDICARE A Care Teams Bowling Ball Mold Assembler Relationship Specialty Start Date End Date Manoj Agudelo MD [address] [place] [address] [address] [place] [address] PCP - General Family Medicine 12/26/17 Prince Owens MD [address] [place] [address] [address] [place] [address] [email or web address] Referring Physician Internal Medicine 12/26/17 Additional Source Comments The information contained in this document represents components of the legal health record. It is not the complete legal health record.[facility]
--- OUTSIDE RECORDS SUMMARY | 2025-07-08 14:32 | XMS_ITS | Encounter Summary ---
Author Organization [facility] Address [address] [place] [address] Care Team Providers Care Seismograph Shooter Name Role Phone Manoj Agudelo I Primary Care Provider [phone] Prince Owens MD Unavailable [phone] Encounter Details Date Type Department Care Team (Late Contact Info) Description 10/17/2020 Orders Only [facility] Hematology/Oncology [address] [phone] Prince Owens MD [address] [place] [address] Social History Tobacco Use Types Packs/Day Years Used Date Smoking Tobacco: Never Cigarettes Smokeless Tobacco: Never Sex and Gender Information Value Date Recorded Sex Assigned at Not on file Legal Sex Male 10:51 PM EDT Gender Identity Not on file Sexual Orientation Not on file documented as of this encounter Progress Notes * Prince Owens MD - 10/17/2020 7:16 AM EST Labs look good. documented in this encounter Plan of Treatment Upcoming Encounters Date Type Department Care Team (Late Contact Info) Description 07/19/2025 9:00 AM EDT Office Visit [facility] Hematology/Oncology [address] [place] [phone] Prince Owens MD [address] [place] [address] R/S from 8-28 due to mother passing away 11/18/2025 2:00 PM EST Office Visit [facility] [address] [place] [phone] Iván Guajardo MD [address] [place] [address] Return in about 1 year (around 11/18/2025). documented as of this encounter Procedures * Due to [facility] law, this organization might not be sharing negative HIV tests. Procedure Name Priority Date/Time Associated Diagnosis Comments CBC INCLUDES DIFFERENTIAL AND PLATELET COUNT Routine 10/17/2020 7:17 AM EST Acquired hemolytic anemia VENIPUNCTURE Routine 10/17/2020 7:17 AM EST Acquired hemolytic anemia COMPREHENSIVE METABOLIC PANEL WITH GFR Routine 10/17/2020 7:17 AM EST Acquired hemolytic anemia documented in this encounter Results * Due to [place] [employer] law, this organization might not be sharing negative HIV tests. * (ABNORMAL) COMPREHENSIVE METABOLIC PANEL WITH GFR (10/17/2020 7:17 AM EST) Glucose 111(H) 65 - 99 mg/dL [facility] Comment: Fasting reference interval For someone without known diabetes, a glucose value between 100 and 125 mg/dL is consistent with prediabetes and should be confirmed with a follow-up test. Urea Nitrogen Blood (BUN) 17 7 - 25 mg/dL [facility] Creatinine 0.99 0.70 - 1.25 mg/dL [facility] Comment: For patients >49 years of age, the reference limit for Creatinine is approximately 13% higher for people identified as -Citizen Of [place]. EGFR 82 > OR = 60 mL/min/1 .73m2 [facility] GFR () 96 > OR = 60 mL/min/1 .73m2 [facility] BUN/Creatinine Ratio NOT APPLICABLE 6 - 22 (calc) [facility] Sodium 140 135 - 146 mmol/L [facility] Potassium 4.2 3.5 - 5.3 mmol/L [facility] Chloride 106 98 - 110 mmol/L [facility] Carbon dioxide 25 20 - 32 mmol/L [facility] Calcium 8.7 8.6 - 10.3 mg/dL [facility] Protein Total (Serum) 6.8 6.1 - 8.1 g/dL [facility] Albumin 4.6 3.6 - 5.1 g/dL [facility] Globulin 2.2 1.9 - 3.7 g/dL (calc) [facility] Albumin/Globulin 2.1 1.0 - 2.5 (calc) [facility] Bilirubin Total 3.1(H) 0.2 - 1.2 mg/dL [facility] Alkaline phosphatase 48 35 - 144 U/L [facility] AST (SGOT) 19 10 - 35 U/L [facility] ALT (SGPT) 22 9 - 46 U/L [facility] 10/17/2020 7:17 AM EST 10/17/2020 8:25 AM EST Narrative [facility] - 10/17/2020 5:48 PM EST Please note that this estimated [...] needs for GFR calculation. Resulting Agency Comment [id number] us Prince Owens MD LABORATORY Final Resu lt [facility] [address] [place] [address] * (ABNORMAL) CBC INCLUDES DIFFERENTIAL AND PLATELET COUNT (10/17/2020 7:17 AM EST) WBC 4.8 3.8 - 10.8 Thousand/u L [facility] RBC 3.14(L) 4.20 - 5.80 Million/uL [facility] Hemoglobin 10.4(L) 13.2 - 17.1 g/dL [facility] Hematocrit 30.5(L) 38.5 - 50.0 % [facility] MCV 97.1 80.0 - 100.0 fL [facility] MCH 33.1(H) 27.0 - 33.0 pg [facility] MCHC 34.1 32.0 - 36.0 g/dL [facility] RDW 12.8 11.0 - 15.0 % [facility] PLT 207 140 - 400 Thousand/u L [facility] MPV 10.1 7.5 - 12.5 fL [facility] Neutrophils # 2136 1500 - 7800 cells/uL [facility] Lymphocytes # 2098 850 - 3900 cells/uL [facility] Monocytes # 317 200 - 950 cells/uL [facility] Eosinophils # 221 15 - 500 cells/uL [facility] Basophils # 29 0 - 200 cells/uL [facility] Neutrophils % 44.5 % [facility] Lymphocytes % 43.7 % [facility] Monocytes % 6.6 % [facility] Eosinophils % 4.6 % [facility] Basophils % 0.6 % [facility] 10/17/2020 7:17 AM EST 10/17/2020 8:25 AM EST Narrative Resulting Agency Comment [id number] Prince Owens MD LAB SAME DAY RESULT Final Result Performing Organization Address [facility] Co de Phone Number [facility] [address] [place] [address] * LACTATE DEHYDROGENASE (LDH), SERUM (10/17/2020 7:17 AM EST) Lactate dehydrogenase 175 120 - 250 U/L [facility] 10/17/2020 7:17 AM EST 10/17/2020 8:25 AM EST Narrative Resulting Agency Comment [id number] Prince Owens MD LABORATORY Final Resu lt Performing Organization Address [facility] Co de Phone Number [facility] [address] [place] [address] documented in this encounter Visit Diagnoses Diagnosis Acquired hemolytic anemia (HCC) Acquired hemolytic anemia, unspecified documented in this encounter Care Teams Seismograph Shooter Relationship Specialty Start Date End Date Manoj Agudelo I [address] [phone] PCP - General Family Medicine 02/05/18 Prince Owens MD [address] [place] [address] Primary Hem Onc Provider Hematology/Oncology 04/18/25 documented as of this encounter
--- OUTSIDE RECORDS SUMMARY | 2025-07-08 14:32 | XMS_ITS | Encounter Summary ---
Author Organization [facility] Address [address] [place] [address] Care Team Providers Care Employment Instructional Associate Name Role Phone Manoj Agudelo Murali Primary Care Provider [phone] Prince Owens MD Unavailable [phone] Encounter Details Date Type Department Care Team (Late Contact Info) Description 08/19/2022 Orders Only [facility] Hematology/Oncology [address] [place] [phone] Prince Owens MD [address] [place] [address] Social History Tobacco Use Types Packs/Day Years Used Date Smoking Tobacco: Never Cigarettes Smokeless Tobacco: Never Sex and Gender Information Value Date Recorded Sex Assigned at Not on file Legal Sex Male 10:51 PM EDT Gender Identity Not on file Sexual Orientation Not on file documented as of this encounter Miscellaneous Notes * Result Encounter Note - Prince Owens MD - 08/19/2022 2:39 PM EDT Results normal/stable. I have notified the patient via [employer]. documented in this encounter Plan of Treatment Upcoming Encounters Date Type Department Care Team (Late Contact Info) Description 07/19/2025 9:00 AM EDT Office Visit [facility] Hematology/Oncology [address] [place] [phone] Prince Owens MD [address] [place] [address] R/S from 8-28 due to mother passing away 11/18/2025 2:00 PM EST Office Visit [facility] [address] [place] [phone] Iván Guajardo MD [address] [place] [address] Return in about 1 year (around 11/18/2025). documented as of this encounter Procedures * Due to [place] [employer] law, this organization might not be sharing negative HIV tests. Procedure Name Priority Date/Time Associated Diagnosis Comments CBC INCLUDES DIFFERENTIAL AND PLATELET COUNT Routine 08/19/2022 2:39 PM EDT Acquired hemolytic anemia VENIPUNCTURE Routine 08/19/2022 2:39 PM EDT Acquired hemolytic anemia COMPREHENSIVE METABOLIC PANEL WITH GFR Routine 08/19/2022 2:39 PM EDT Acquired hemolytic anemia documented in this encounter Results * Due to [place] [employer] law, this organization might not be sharing negative HIV tests. * (ABNORMAL) CBC INCLUDES DIFFERENTIAL AND PLATELET COUNT (08/19/2022 2:39 PM EDT) WBC 5.5 3.8 - 10.8 Thousand/u L [facility] RBC 2.91(L) 4.20 - 5.80 Million/uL [facility] Hemoglobin 9.5(L) 13.2 - 17.1 g/dL [facility] Hematocrit 28.7(L) 38.5 - 50.0 % [facility] MCV 98.6 80.0 - 100.0 fL [facility] MCH 32.6 27.0 - 33.0 pg [facility] MCHC 33.1 32.0 - 36.0 g/dL [facility] RDW 12.0 11.0 - 15.0 % [facility] PLT 225 140 - 400 Thousand/u L [facility] MPV 9.8 7.5 - 12.5 fL [facility] Neutrophils # 3064 1500 - 7800 cells/uL [facility] Lymphocytes # 1854 850 - 3900 cells/uL [facility] Monocytes # 347 200 - 950 cells/uL [facility] Eosinophils # 209 15 - 500 cells/uL [facility] Basophils # 28 0 - 200 cells/uL [facility] Neutrophils % 55.7 % [facility] Lymphocytes % 33.7 % [facility] Monocytes % 6.3 % [facility] Eosinophils % 3.8 % [facility] Basophils % 0.5 % [facility] 08/19/2022 2:39 PM EDT 08/20/2022 2:55 AM EDT Narrative Resulting Agency Comment [id number] Prince Owens MD LAB SAME DAY RESULT Final Result [facility] [address] [place] [address] * (ABNORMAL) COMPREHENSIVE METABOLIC PANEL WITH GFR (08/19/2022 2:39 PM EDT) Glucose 108(H) 65 - 99 mg/dL [facility] Comment: Fasting reference interval For someone without known diabetes, a glucose value between 100 and 125 mg/dL is consistent with prediabetes and should be confirmed with a follow-up test. Urea Nitrogen Blood (BUN) 17 7 - 25 mg/dL [facility] Creatinine 0.90 0.70 - 1.35 mg/dL [facility] EGFR 97 > OR = 60 mL/min/1 .73m2 [facility] Comment: The eGFR is based on the CKD-EPI 2020 equation. To calculate the new eGFR from a previous Creatinine or Cystatin C result, go to https://www.kidney.org/professionals/ kdoqi/gfr%5Fcalculator BUN/Creatinine Ratio NOT APPLICABLE 6 - 22 [...] - 1.2 mg/dL [facility] Alkaline phosphatase 43 35 - 144 U/L [facility] AST (SGOT) 15 10 - 35 U/L [facility] ALT (SGPT) 18 9 - 46 U/L [facility] 08/19/2022 2:39 PM EDT 08/20/2022 2:55 AM EDT Narrative [facility] - 08/20/2022 7:39 AM EDT Please note that this estimated [...] needs for GFR calculation. Resulting Agency Comment [id number] Prince Owens MD LABORATORY Final Resu lt Performing Organization Address [facility] Co de Phone Number [facility] [address] [place] [address] * LACTATE DEHYDROGENASE (LDH), SERUM (08/19/2022 2:39 PM EDT) Lactate dehydrogenase 161 120 - 250 U/L [facility] 08/19/2022 2:39 PM EDT 08/20/2022 2:55 AM EDT Narrative Resulting Agency Comment [id number] Prince Owens MD LABORATORY Final Resu lt Performing Organization Address [facility] Co de Phone Number [facility] [address] [place] [address] documented in this encounter Visit Diagnoses Diagnosis Acquired hemolytic anemia (HCC) Acquired hemolytic anemia, unspecified documented in this encounter Care Teams Employment Instructional Associate Relationship Specialty Start Date End Date Manoj Agudelo I [place] [address] [place] [phone] PCP - General Family Medicine 02/05/18 Prince Owens MD [address] [place] [address] Primary Hem Onc Provider Hematology/Oncology 04/18/25 documented as of this encounter
--- OUTSIDE RECORDS SUMMARY | 2025-07-08 14:32 | XMS_ITS | Encounter Summary ---
Author Organization [facility] Address [address] [place] [address] Care Team Providers Care Ramp Supervisor Name Role Phone Manoj Agudelo I Primary Care Provider [phone]- [phone] Prince Owens MD Unavailable [phone] Encounter Details Date Type Department Care Team (Late Contact Info) Description 02/08/2019 Orders Only [facility] Hematology/Oncology [address] [phone] Prince Owens MD [address] [place] [phone] Social History Tobacco Use Types Packs/Day Years [...] Office Visit [facility] Hematology/Oncology [address] [place] [phone] Prince Owens MD [address] [place] [phone] R/S from 8-28 due to mother passing away 11/18/2025 2:00 PM EST Office Visit [facility] Dermatology [address] [place] [phone] Iván Guajardo MD [address] [place] [address] Return in about 1 year (around 11/18/2025). documented as of this encounter Procedures * Due to [facility] law, this organization might not be sharing negative HIV tests. Procedure Name Priority Date/Time Associated Diagnosis Comments CBC INCLUDES DIFFERENTIAL AND PLATELET COUNT Routine 02/08/2019 5:46 PM EDT Acquired hemolytic anemia COMPREHENSIVE METABOLIC PANEL WITH GFR Routine 02/08/2019 5:46 PM EDT Acquired hemolytic anemia LACTATE DEHYDROGENASE (LDH), SERUM Routine 02/08/2019 5:43 PM EDT Acquired hemolytic anemia documented in this encounter Results * Due to [place] [facility] law, this organization might not be sharing negative HIV tests. * (ABNORMAL) COMPREHENSIVE METABOLIC PANEL WITH GFR (02/08/2019 5:46 PM EDT) Glucose 101(H) 65 - 99 mg/dl [facility] Urea Nitrogen Blood (BUN) 22 7 - 25 mg/dL [facility] Creatinine 1.08 0.50 - 1.20 mg/dL [facility] Sodium 138 136 - 145 mmo/L [facility] Potassium 4.0 3.5 - 5.3 mmol/L [facility] Chloride 100 98 - 107 mmo/L [facility] Calcium 9.1 8.5 - 10.4 mg/dL [facility] Protein Total (Serum) 7.2 6.0 - 8.3 g/dL [facility] Albumin 4.7 3.5 - 5.3 g/dL [facility] Globulin 2 2 - 4 G/DL [facility] Bilirubin Total 5.12(H) 0.00 - 1.20 mg/dL [facility] Alkaline phosphatase 90 40 - 115 U/L [facility] AST (SGOT) 41 <45 U/L [facility] ALT (SGPT) 65 <67 U/L [facility] Carbon dioxide 26 23 - 33 mmol/L [facility] GFR 74 >60 ml/min [facility] Comment:If the patient is Af rican Armenian, please multiply result by 1.210 02/08/2019 5:46 PM EDT 02/08/2019 5:46 PM EDT Narrative [facility] - 02/09/2019 10:45 AM EDT Patient's primary care provider is: N/A Testing performed at: [facility], [address] [place] [address], [id number], Pick Up And Delivery Driver: Bairon Kevin MD us Prince Owens MD LABORATORY Final Resu lt [address] [address] DIRECTOR Bairon Kevin MD * (ABNORMAL) CBC INCLUDES DIFFERENTIAL AND PLATELET COUNT (02/08/2019 5:46 PM EDT) WBC 4.0 3.8 - 10.8 K/uL [facility] Neutrophils # 1.6 1.5 - 7.8 K/uL [facility] Immature Granulocytes # 0.0 0.0 - 0.1 K/uL [facility] Lymphocytes # 1.8 0.9 - 3.9 K/uL [facility] Monocytes # 0.4 0.2 - 1.0 K/uL [facility] Eosinophils # 0.2 0.0 - 0.5 K/uL [facility] Basophils # 0.0 0.0 - 0.2 K/uL [facility] Neutrophils % 40.0 % [facility] Immature Granulocytes % 0.30 % [facility] Lymphocytes % 45.1 % [facility] Monocytes % 10.3 % [facility] Eosinophils % 4.0 % [facility] Basophils % 0.3 % [facility] RBC 2.16(L) 4.20 - 5.80 M/uL [facility] Hemoglobin 7.0 Verified( L) 13.2 - 17.1 g/dL [facility] Hematocrit 22.9 Verified( L) 38.5 - 50.0 % [facility] MCV 106.0(H) 80.0 - 100.0 fl [facility] MCH 32.4 27.0 - 33.0 pg [facility] MCHC 30.6(L) 32.0 - 36.0 g/dL [facility] RDW 14.8 11.0 - 15.0 % [facility] PLT 200 140 - 400 K/uL [facility] 02/08/2019 5:46 PM EDT 02/08/2019 5:46 PM EDT Narrative [facility] - 02/08/2019 6:21 PM EDT Patient's primary care provider is: N/A Verbal H+H results given to and read back with Dr. Owens,on 02/08/2019 6:19 PM, by YOHAN. Testing performed at: [facility], [address] [place] [address], [id number], Pick Up And Delivery Driver: Bairon Kevin MD Prince Owens MD LAB SAME DAY RESULT Final Result Performing Organization Address [facility] Co de Phone Number [address] [address] DIRECTOR Bairon Kevin MD * LACTATE DEHYDROGENASE (LDH), SERUM (02/08/2019 5:43 PM EDT) Lactate dehydrogenase 226 120 - 250 U/L [facility] 02/08/2019 5:43 PM EDT 02/09/2019 3:34 AM EDT Narrative Resulting Agency Comment [id number] Prince Owens MD LABORATORY Final Resu lt [facility] [address] [place] [address] documented in this encounter Visit Diagnoses Diagnosis Acquired hemolytic anemia (HCC) Acquired hemolytic anemia, unspecified documented in this encounter Care Teams Ramp Supervisor Relationship Specialty Start Date End Date Manoj Agudelo I [address] [phone] PCP - General Family Medicine 02/05/18 Prince Owens MD [address] [place] [address] Primary Hem Onc Provider Hematology/Oncology 04/18/25 documented as of this encounter
--- OUTSIDE RECORDS SUMMARY | 2025-07-08 14:32 | XMS_ITS | Encounter Summary ---
Author Organization [facility] Address [address] [place] [address] Care Team Providers Care Shuttlecock Feather Trimmer Name Role Phone Manoj Agudelo I Primary Care Provider [phone] Prince Owens MD Unavailable [phone] Encounter Details Date Type Department Care Team (Late Contact Info) Description 05/11/2025 Orders Only [facility] [address] [place] [phone] Suzanne Ring, RN [address] [place] [phone] Social History Tobacco Use Types Packs/Day Years [...] Description 07/19/2025 9:00 AM EDT Office Visit [facility] Hematology/Oncology [address] [place] [phone] Prince Owens MD [address] [place] [phone] R/S from 8-28 due to mother passing away 11/18/2025 2:00 PM EST Office Visit [facility] [address] [place] [phone] Iván Guajardo MD [address] [place] [address] Return in about 1 year (around 11/18/2025). documented as of this encounter Procedures * Due to [place] [employer] law, this organization might not be sharing negative HIV tests. Procedure Name Priority Date/Time Associated Diagnosis Comments CBC (H/H, RBC, INDICES,WBC, PLT) Routine 05/11/2025 11:52 AM EDT Acquired hemolytic anemia (HCC) LACTATE DEHYDROGENASE (LDH), SERUM Routine 05/11/2025 11:52 AM EDT Acquired hemolytic anemia (HCC) COMPREHENSIVE METABOLIC PANEL WITH GFR Routine 05/11/2025 11:52 AM EDT Acquired hemolytic anemia (HCC) documented in this encounter Results * Due to [place] [employer] law, this organization might not be sharing negative HIV tests. * (ABNORMAL) CBC (H/H, RBC, INDICES,WBC, PLT) (05/11/2025 11:52 AM EDT) WBC 6.8 3.8 - 10.8 Thousand/ uL [facility] RBC 3.17(L) 4.20 - 5.80 Million/u L [facility] Hemoglobin 10.8(L) 13.2 - 17.1 g/dL [facility] Hematocrit 32.6(L) 38.5 - 50.0 % [facility] MCV 102.8(H) 80.0 - 100.0 fL [facility] MCH 34.1(H) 27.0 - 33.0 pg [facility] MCHC 33.1 32.0 - 36.0 g/dL [facility] Comment: For adults, a slight decrease in the calculated MCHC value (in the range of 30 to 32 g/dL) is most likely not clinically significant; however, it should be interpreted with caution in correlation with other red cell parameters and the patient's clinical condition. RDW 13.3 11.0 - 15.0 % [facility] PLT 240 140 - 400 Thousand/ uL [facility] MPV 10.2 7.5 - 12.5 fL [facility] 05/11/2025 11:5 2 AM EDT 05/11/2025 11:38 PM EDT Narrative Resulting Agency Comment [id number] us Prince Owens MD LAB SAME DAY RESULT Final Result Performing Organization Address [facility] Co de Phone Number [facility] [address] [place] [address] * LACTATE DEHYDROGENASE (LDH), SERUM (05/11/2025 11:52 AM EDT) Lactate dehydrogenase 190 120 - 250 U/L [facility] 05/11/2025 11:5 2 AM EDT 05/11/2025 11:38 PM EDT Narrative Resulting Agency Comment [id number] Prince Owens MD LABORATORY Final Resu lt Performing Organization Address [facility] [address] [facility] de Phone Number [facility] [address] [place] [address] * (ABNORMAL) COMPREHENSIVE METABOLIC PANEL WITH GFR (05/11/2025 11:52 AM EDT) Glucose 153(H) 65 - 99 mg/dL [facility] Comment: Fasting reference interval For someone without known diabetes, a glucose value >125 mg/dL indicates that they may have diabetes and this should be confirmed with a follow-up test. Urea Nitrogen Blood (BUN) 19 7 - 25 mg/dL [facility] Creatinine 1.04 0.70 - 1.35 mg/dL [facility] EGFR 80 > OR = 60 mL/min/1. 73m2 [facility] [...] 21 9 - 46 U/L [facility] 05/11/2025 11:5 2 AM EDT 05/11/2025 11:38 PM EDT Narrative [facility] - 05/12/2025 9:05 AM EDT Please note that this estimated [...] needs for GFR calculation. Resulting Agency Comment [id number] us Prince Owens MD LABORATORY Final Resu lt [facility] [address] [place] [address] documented in this encounter Visit Diagnoses Diagnosis Acquired hemolytic anemia (HCC) Acquired hemolytic anemia, unspecified documented in this encounter Care Teams Shuttlecock Feather Trimmer Relationship Specialty Start Date End Date Manoj Agudelo I [place] [address] [place] [phone] PCP - General Family Medicine 02/05/18 Prince Owens MD [address] [place] [phone] Primary Hem Onc Provider Hematology/Oncology 04/18/25 documented as of this encounter
--- OUTSIDE RECORDS SUMMARY | 2025-07-08 14:32 | XMS_ITS | Encounter Summary ---
Author Organization [facility] Address [address] [place] [address] Care Team Providers Care Instruction Librarian Name Role Phone Manoj Agudelo I Primary Care Provider [phone] Prince Owens MD Unavailable [phone] Encounter Details Date Type Department Care Team ([facility] Contact Info) Description 04/20/2025 Orders Only [facility] Hematology/Oncology [address] [place] [phone] Prince Owens MD [address] [place] [address] Social History Tobacco Use Types Packs/Day Years [...] Upcoming Encounters Date Type Department Care Team ([facility] Contact Info) Description 07/19/2025 9:00 AM EDT Office Visit [facility] Hematology/Oncology [address] [place] [phone] Prince Owens MD [address] [place] [address] R/S from 8-28 due to mother passing away 11/18/2025 2:00 PM EST Office Visit [facility] Dermatology [address] [place] [phone] Iván Guajardo MD [address] [place] [address] Return in about 1 year (around 11/18/2025). documented as of this encounter Procedures * Due to [place] [employer] law, this organization might not be sharing negative HIV tests. Procedure Name Priority Date/Time Associated Diagnosis Comments CBC (H/H, RBC, INDICES,WBC, PLT) Routine 04/20/2025 10:47 AM EDT Acquired hemolytic anemia (HCC) LACTATE DEHYDROGENASE (LDH), SERUM Routine 04/20/2025 10:47 AM EDT Acquired hemolytic anemia (HCC) COMPREHENSIVE METABOLIC PANEL WITH GFR Routine 04/20/2025 10:47 AM EDT Acquired hemolytic anemia (HCC) documented in this encounter Results * Due to [place] [employer] law, this organization might not be sharing negative HIV tests. * (ABNORMAL) COMPREHENSIVE METABOLIC PANEL WITH GFR (04/20/2025 10:47 AM EDT) Glucose 114(H) 65 - 99 mg/dL [facility] Comment: Fasting reference interval For someone without known diabetes, a glucose value between 100 and 125 mg/dL is consistent with prediabetes and should be confirmed with a follow-up test. Urea Nitrogen Blood (BUN) 18 7 - 25 mg/dL [facility] Creatinine 0.98 0.70 - 1.35 mg/dL [facility] EGFR 86 > OR = 60 mL/min/1. 73m2 [facility] [...] 10.3 mg/dL [facility] Protein Total (Serum) 6.3 6.1 - 8.1 g/dL [facility] Albumin 4.4 3.6 - 5.1 g/dL [facility] Globulin 1.9 1.9 - 3.7 g/dL (calc) [facility] Albumin/Globuli n 2.3 1.0 - 2.5 (calc) [facility] Bilirubin Total 2.4(H) 0.2 - 1.2 mg/dL [facility] Alkaline phosphatase 54 35 - 144 U/L [facility] AST (SGOT) 14 10 - 35 U/L [facility] ALT (SGPT) 28 9 - 46 U/L [facility] 04/20/2025 10:4 7 AM EDT 04/20/2025 11:59 PM EDT Narrative [facility] - 04/21/2025 5:39 PM EDT Please note that this estimated [...] needs for GFR calculation. Resulting Agency Comment [id number] us Prince Owens MD LABORATORY Final Resu lt [facility] [address] [place] [address] * LACTATE DEHYDROGENASE (LDH), SERUM (04/20/2025 10:47 AM EDT) Lactate dehydrogenase 177 120 - 250 U/L [facility] 04/20/2025 10:4 7 AM EDT 04/20/2025 11:59 PM EDT Narrative Resulting Agency Comment [id number] us Prince Owens MD LABORATORY Final Resu lt [facility] [address] [place] [address] * (ABNORMAL) CBC (H/H, RBC, INDICES,WBC, PLT) (04/20/2025 10:47 AM EDT) WBC 6.9 3.8 - 10.8 Thousand/ uL [facility] RBC 3.18(L) 4.20 - 5.80 Million/u L [facility] Hemoglobin 10.5(L) 13.2 - 17.1 g/dL [facility] Hematocrit 32.2(L) 38.5 - 50.0 % [facility] MCV [...] parameters and the patient's clinical condition. RDW 12.6 11.0 - 15.0 % [facility] PLT 192 140 - 400 Thousand/ uL [facility] MPV 10.1 7.5 - 12.5 fL [facility] 04/20/2025 10:4 7 AM EDT 04/20/2025 11:59 PM EDT Narrative Resulting Agency Comment [id number] us Prince Owens MD LAB SAME DAY RESULT Final Result Performing Organization Address City/State/[facility] Co de Phone Number [facility] [address] [place] [address] documented in this encounter Visit Diagnoses Diagnosis Acquired hemolytic anemia (HCC) Acquired hemolytic anemia, unspecified documented in this encounter Care Teams Instruction Librarian Relationship Specialty Start Date End Date Manoj Agudelo I [place] [address] [place] [phone] PCP - General Family Medicine 02/05/18 Prince Owens MD [address] [place] [address] Primary Hem Onc Provider Hematology/Oncology 04/18/25 documented as of this encounter
--- OUTSIDE RECORDS SUMMARY | 2025-07-08 14:32 | XMS_ITS | Encounter Summary ---
Author Organization [facility] Address [address] [place] [address] Care Team Providers Care Hangar Attendant Name Role Phone Manoj Agudelo I Primary Care Provider [phone] Prince Owens MD Unavailable Encounter Details Date Type Department Care Team (Late Contact Info) Description 11/23/2018 Orders Only [facility] Hematology/Oncology [address] [phone] Prince Owens MD [address] [place] [phone] Social History Tobacco Use Types Packs/Day [...] Office Visit [facility] Hematology/Oncology [address] [place] [phone] Prince Owens MD [address] [place] [address] [phone] R/S from 8-28 due to mother passing away 11/18/2025 2:00 PM EST Office Visit [facility] Dermatology [address] [place] [phone] Iván Guajardo MD [address] [place] [address] Return in about 1 year (around 11/18/2025). documented as of this encounter Procedures * Due to [place] [employer] law, this organization might not be sharing negative HIV tests. Procedure Name Priority Date/Time Associated Diagnosis Comments CBC INCLUDES DIFFERENTIAL AND PLATELET COUNT Routine 11/23/2018 5:04 PM EST Acquired hemolytic anemia LACTATE DEHYDROGENASE (LDH), SERUM Routine 11/23/2018 5:04 PM EST Acquired hemolytic anemia COMPREHENSIVE METABOLIC PANEL WITH GFR Routine 11/23/2018 5:04 PM EST Acquired hemolytic anemia documented in this encounter Results * Due to [place] [employer] law, this organization might not be sharing negative HIV tests. * (ABNORMAL) COMPREHENSIVE METABOLIC PANEL WITH GFR (11/23/2018 5:04 PM EST) Glucose 110(H) 65 - 99 mg/dL [facility] Comment: Fasting reference interval For someone without known diabetes, a glucose value between 100 and 125 mg/dL is consistent with prediabetes and should be confirmed with a follow-up test. Urea Nitrogen Blood (BUN) 26(H) 7 - 25 mg/dL [facility] Creatinine 1.05 0.70 - 1.33 mg/dL [facility] Comment: For patients >49 years of age, the reference limit for Creatinine is approximately 13% higher for people identified as -[place]. EGFR 78 > OR = 60 mL/min/1. 73m2 [facility] GFR () 90 > OR = 60 mL/min/1. 73m2 [facility] BUN/Creatinine Ratio 25(H) 6 - 22 (calc) [facility] Sodium [...] - 2.5 (calc) [facility] Bilirubin Total 8.8(H) 0.2 - 1.2 mg/dL [facility] Alkaline phosphatase 71 40 - 115 U/L [facility] AST (SGOT) 65(H) 10 - 35 U/L [facility] ALT (SGPT) 71(H) 9 - 46 U/L [facility] 11/23/2018 5:04 PM EST 11/24/2018 12:36 AM EST Narrative [facility] - 11/24/2018 4:25 AM EST Please note that this estimated [...] LABORATORY Final Resu lt [facility] [address] [place] [address] * (ABNORMAL) LACTATE DEHYDROGENASE (LDH), SERUM (11/23/2018 5:04 PM EST) Lactate dehydrogenase 262(H) 120 - 250 U/L [facility] 11/23/2018 5:04 PM EST 11/24/2018 12:36 AM EST Narrative Resulting Agency Comment [id number] Prince Owens MD LABORATORY Final Resu lt [facility] [address] [place] [address] * (ABNORMAL) CBC INCLUDES DIFFERENTIAL AND PLATELET COUNT (11/23/2018 5:04 PM EST) WBC 5.3 3.8 - 10.8 Thousand/u L [facility] RBC 2.64(L) 4.20 - 5.80 Million/uL [facility] Hemoglobin 8.6(L) 13.2 - 17.1 g/dL [facility] Hematocrit 25.6(L) 38.5 - 50.0 % [facility] MCV 97.0 80.0 - 100.0 fL [facility] MCH 32.6 27.0 - 33.0 pg [facility] MCHC 33.6 32.0 - 36.0 g/dL [facility] RDW 13.0 11.0 - 15.0 % [facility] PLT 229 140 - 400 Thousand/u L [facility] MPV 9.6 7.5 - 12.5 fL [facility] Neutrophils # 2618 1500 - 7800 cells/uL [facility] Lymphocytes # 1945 850 - 3900 cells/uL [facility] Monocytes # 525 200 - 950 cells/uL [facility] Eosinophils # 180 15 - 500 cells/uL [facility] Basophils # 32 0 - 200 cells/uL [facility] Neutrophils % 49.4 % [facility] Lymphocytes % 36.7 % [facility] Monocytes % 9.9 % [facility] Eosinophils % 3.4 % [facility] Basophils % 0.6 % [facility] 11/23/2018 5:04 PM EST 11/24/2018 12:36 AM EST Narrative Resulting Agency Comment [id number] us Prince Owens MD LAB SAME DAY RESULT Final Result Performing Organization Address City/State/[facility] Co de Phone Number [facility] [address] [place] [address] documented in this encounter Visit Diagnoses Diagnosis Acquired hemolytic anemia (HCC) Acquired hemolytic anemia, unspecified documented in this encounter Care Teams Hangar Attendant Relationship Specialty Start Date End Date Manoj Agudelo I [place] [address] [place] [phone] PCP - General Family Medicine 02/05/18 Prince Owens MD [address] [place] [address] Primary Hem Onc Provider Hematology/Oncology 04/18/25 documented as of this encounter
--- OUTSIDE RECORDS SUMMARY | 2025-07-08 14:32 | XMS_ITS | Encounter Summary ---
Author Organization [facility] Address [address] [place] [address] Care Team Providers Care Pitch Gatherer Name Role Phone Manoj Agudelo I Primary Care Provider [phone]- [phone] Prince Owens MD Unavailable [phone] Encounter Details Date Type Department Care Team (Late Contact Info) Description 11/27/2018 Orders Only [facility] Hematology/Oncology [address] [phone] Prince Owens MD 5 [place] [address] Social History Tobacco Use Types Packs/Day Years Used Date Smoking Tobacco: Never Cigarettes Smokeless Tobacco: Never Sex and Gender Information Value Date Recorded Sex Assigned at Not on file Legal Sex Male 10:51 PM EDT Gender Identity Not on file Sexual Orientation Not on file documented as of this encounter Progress Notes * Prince Owens MD - 11/29/2018 4:22 PM EST Labs have stabilized. Check as we discussed during our visit. documented in this encounter Plan of Treatment Upcoming Encounters Date Type Department Care Team (Late st Contact Info) Description 07/19/2025 9:00 AM EDT Office Visit [facility] Hematology/Oncology [address] [place] [phone] Prince Owens MD 5 [place] [address] R/S from 8-28 due to mother passing away 11/18/2025 2:00 PM EST Office Visit [facility] Dermatology [address] [place] [address] Iván Guajardo MD [address] [place] [address] Return in about 1 year (around 11/18/2025). documented as of this encounter Procedures * Due to [facility] law, this organization might not be sharing negative HIV tests. Procedure Name Priority Date/Time Associated Diagnosis Comments CBC INCLUDES DIFFERENTIAL AND PLATELET COUNT Routine 11/27/2018 7:50 AM EST Acquired hemolytic anemia DIFFERENTIAL, MANUAL ONLY Routine 11/27/2018 7:50 AM EST LACTATE DEHYDROGENASE (LDH), SERUM Routine 11/27/2018 7:50 AM EST Acquired hemolytic anemia documented in this encounter Results * Due to [place] [employer] law, this organization might not be sharing negative HIV tests. * DIFFERENTIAL, MANUAL ONLY (11/27/2018 7:50 AM EST) Neutrophils # 2688 1500 - 7800 cells/uL [facility] Bands # 224 0 - 750 cells/uL [facility] Lymphocytes 1624 850 - 3900 cells/uL [facility] Monocytes # 728 200 - 950 cells/uL [facility] Eosinophils # 280 15 - 500 cells/uL [facility] Basophils # 56 0 - 200 cells/uL [facility] Neutrophils % 48 % [facility] Band Neutrophils % 4 % [facility] Lymphocytes % 29 % [facility] Monocytes % 13 % [facility] Eosinophils % 5 % [facility] Basophils % 1 % [facility] NOTE See Below [facility] Comment: Although an automated CBC was ordered, our instrumentation detected an abnormality on your patient's specimen requiring us to perform a manual review. 11/27/2018 7:50 AM EST 11/27/2018 1:09 PM EST us Prince Owens MD LABORATORY Final Resu lt [facility] [address] [place] [address] * LACTATE DEHYDROGENASE (LDH), SERUM (11/27/2018 7:50 AM EST) Lactate dehydrogenase 207 120 - 250 U/L [facility] 11/27/2018 7:50 AM EST 11/27/2018 1:09 PM EST Narrative Resulting Agency Comment [id number] Prince Owens MD LABORATORY Final Resu lt Performing Organization Address City/[facility]/ZIP Co de Phone Number [facility] [address] [place] [address] * (ABNORMAL) CBC INCLUDES DIFFERENTIAL AND PLATELET COUNT (11/27/2018 7:50 AM EST) WBC 5.6 3.8 - 10.8 Thousand/u L [facility] RBC 2.51(L) 4.20 - 5.80 Million/uL [facility] Hemoglobin 8.0(L) 13.2 - 17.1 g/dL [facility] Hematocrit 24.5(L) 38.5 - 50.0 % [facility] MCV 97.6 80.0 - 100.0 fL [facility] MCH 31.9 27.0 - 33.0 pg [facility] MCHC 32.7 32.0 - 36.0 g/dL [facility] RDW 14.4 11.0 - 15.0 % [facility] PLT 242 140 - 400 Thousand/u L [facility] MPV 10.2 7.5 - 12.5 fL [facility] 11/27/2018 7:50 AM EST 11/27/2018 1:09 PM EST Narrative Resulting Agency Comment [id number] Prince Owens MD LAB SAME DAY RESULT Final Result [facility] [address] [place] [address] documented in this encounter Visit Diagnoses Diagnosis Acquired hemolytic anemia (HCC) Acquired hemolytic anemia, unspecified documented in this encounter Care Teams Pitch Gatherer Relationship Specialty Start Date End Date Manoj Agudelo I [address] [place] [address] PCP - General Family Medicine 02/05/18 Prince Owens MD [address] [place] [address] Primary Hem Onc Provider Hematology/Oncology 04/18/25 documented as of this encounter
--- OUTSIDE RECORDS SUMMARY | 2025-07-08 14:32 | XMS_ITS | Encounter Summary ---
Author Organization [facility] Address [address] [place] [address] Care Team Providers Care Apprentice Photographer Name Role Phone Manoj Agudelo Murali Primary Care Provider [phone]- [phone] Prince Owens MD Unavailable [phone] Encounter Details Date Type Department Care Team (Late Contact Info) Description 02/06/2023 Orders Only [facility] Hematology/Oncology [address] [place] [phone] Prince Owens MD [address] [place] [address] Social History Tobacco Use Types Packs/Day Years Used Date Smoking Tobacco: Never Cigarettes Smokeless Tobacco: Never Sex and Gender Information Value Date Recorded Sex Assigned at Not on file Legal Sex Male 10:51 PM EDT Gender Identity Not on file Sexual Orientation Not on file documented as of this encounter Miscellaneous Notes * Result Encounter Note - Prince Owens MD - 02/06/2023 11:41 AM EDT Results normal/stable. I have notified the patient via [employer]. documented in this encounter Plan of Treatment Upcoming Encounters Date Type Department Care Team (Late st Contact Info) Description 07/19/2025 9:00 AM EDT Office Visit [facility] Hematology/Oncology [address] [place] [phone] Prince Owens MD [address] [place] [address] R/S from 8-28 due to mother passing away 11/18/2025 2:00 PM EST Office Visit [facility] Dermatology 5 [place] [phone] Iván Guajardo MD 5 [place] [address] Return in about 1 year (around 11/18/2025). documented as of this encounter Procedures * Due to [place] [employer] law, this organization might not be sharing negative HIV tests. Procedure Name Priority Date/Time Associated Diagnosis Comments CBC INCLUDES DIFFERENTIAL AND PLATELET COUNT Routine 02/06/2023 12:05 PM EDT Acquired hemolytic anemia LACTATE DEHYDROGENASE (LDH), SERUM Routine 02/06/2023 12:05 PM EDT Acquired hemolytic anemia COMPREHENSIVE METABOLIC PANEL WITH GFR Routine 02/06/2023 12:05 PM EDT Acquired hemolytic anemia documented in this encounter Results * Due to [place] [employer] law, this organization might not be sharing negative HIV tests. * (ABNORMAL) CBC INCLUDES DIFFERENTIAL AND PLATELET COUNT (02/06/2023 12:05 PM EDT) WBC 5.2 3.8 - 10.8 Thousand/u L [facility] RBC 2.88(L) 4.20 - 5.80 Million/uL [facility] Hemoglobin 9.5(L) 13.2 - 17.1 g/dL [facility] Hematocrit 28.1(L) 38.5 - 50.0 % [facility] MCV 97.6 80.0 - 100.0 fL [facility] MCH 33.0 27.0 - 33.0 pg [facility] MCHC 33.8 32.0 - 36.0 g/dL [facility] RDW 12.3 11.0 - 15.0 % [facility] PLT 223 140 - 400 Thousand/u L [facility] MPV 9.8 7.5 - 12.5 fL [facility] Neutrophils # 2907 1500 - 7800 cells/uL [facility] Lymphocytes # 1685 850 - 3900 cells/uL [facility] Monocytes # 359 200 - 950 cells/uL [facility] Eosinophils # 208 15 - 500 cells/uL [facility] Basophils # 42 0 - 200 cells/uL [facility] Neutrophils % 55.9 % [facility] Lymphocytes % 32.4 % [facility] Monocytes % 6.9 % [facility] Eosinophils % 4.0 % [facility] Basophils % 0.8 % [facility] 02/06/2023 12:0 5 PM EDT 02/06/2023 6:08 PM EDT Narrative Resulting Agency Comment [id number] us Prince Owens MD LAB SAME DAY RESULT Final Result [facility] [address] [place] [address] * (ABNORMAL) COMPREHENSIVE METABOLIC PANEL WITH GFR (02/06/2023 12:05 PM EDT) Glucose 139(H) 65 - 99 mg/dL [facility] Comment: Fasting reference interval For someone without known diabetes, a glucose value >125 mg/dL indicates that they may have diabetes and this should be confirmed with a follow-up test. Urea Nitrogen Blood (BUN) 21 7 - 25 mg/dL [facility] Creatinine 1.00 0.70 - 1.35 mg/dL [facility] EGFR 85 > OR = 60 mL/min/1 .73m2 [...] 3.6 - 5.1 g/dL [facility] Globulin 2.5 1.9 - 3.7 g/dL (calc) [facility] Albumin/Globuli n 2.0 1.0 - 2.5 (calc) [facility] Bilirubin Total 4.6(H) 0.2 - 1.2 mg/dL [facility] Alkaline phosphatase 59 35 - 144 U/L [facility] AST (SGOT) 16 10 - 35 U/L [facility] ALT (SGPT) 18 9 - 46 U/L [facility] 02/06/2023 12:0 5 PM EDT 02/06/2023 6:08 PM EDT Narrative [facility] - 02/06/2023 8:55 PM EDT Please note that this estimated [...] needs for GFR calculation. Resulting Agency Comment [id number] Prince Owens MD LABORATORY Final Resu lt Performing Organization Address City/[facility]/ZIP Co de Phone Number [facility] [address] [place] [address] * LACTATE DEHYDROGENASE (LDH), SERUM (02/06/2023 12:05 PM EDT) Lactate dehydrogenase 173 120 - 250 U/L [facility] 02/06/2023 12:0 5 PM EDT 02/06/2023 6:08 PM EDT Narrative Resulting Agency Comment [id number] Prince Owens MD LABORATORY Final Resu lt Performing Organization Address City/[facility]/ZIP Co de Phone Number [facility] [address] [place] [address] documented in this encounter Visit Diagnoses Diagnosis Acquired hemolytic anemia (HCC) Acquired hemolytic anemia, unspecified documented in this encounter Care Teams Apprentice Photographer Relationship Specialty Start Date End Date Manoj Agudelo I [address] [address] [place] [address] PCP - General Family Medicine 02/05/18 Prince Owens MD [address] [place] [address] Primary Hem Onc Provider Hematology/Oncology 04/18/25 documented as of this encounter
--- OUTSIDE RECORDS SUMMARY | 2025-07-08 14:32 | XMS_ITS | Encounter Summary ---
Author Organization [facility] Address [address] [place] [address] Care Team Providers Care Hat Blocking Operator Name Role Phone JammieJohncorywalter Carrion Primary Care Provider [phone] Prince Owens MD Unavailable [phone] Encounter Details Date Type Department Care Team (Late Contact Info) Description 01/25/2022 Orders Only [facility] Hematology/Oncology [address] [phone] Prince Owens MD [address] [place] [address] Social History Tobacco Use Types Packs/Day Years Used Date Smoking Tobacco: Never Cigarettes Smokeless Tobacco: Never Sex and Gender Information Value Date Recorded Sex Assigned at Not on file Legal Sex Male 10:51 PM EDT Gender Identity Not on file Sexual Orientation Not on file documented as of this encounter Miscellaneous Notes * Result Encounter Note - Prince Owens MD - 01/25/2022 4:05 PM EDT Results normal/stable. I have notified the patient via [employer]. documented in this encounter Plan of Treatment Upcoming Encounters Date Type Department Care Team (Late st Contact Info) Description 07/19/2025 9:00 AM EDT Office Visit [facility] Hematology/Oncology [address] [place] [phone] Prince Owens MD [address] [place] [address] R/S from 8-28 due to mother passing away 11/18/2025 2:00 PM EST Office Visit [facility] Dermatology [address] [place] [address] Iván Guajardo MD [address] [place], [place] [phone] Return in about 1 year (around 11/18/2025). documented as of this encounter Procedures * Due to [place] [employer] law, this organization might not be sharing negative HIV tests. Procedure Name Priority Date/Time Associated Diagnosis Comments CBC INCLUDES DIFFERENTIAL AND PLATELET COUNT Routine 01/25/2022 4:05 PM EDT Acquired hemolytic anemia VENIPUNCTURE Routine 01/25/2022 4:05 PM EDT Acquired hemolytic anemia COMPREHENSIVE METABOLIC PANEL WITH GFR Routine 01/25/2022 4:05 PM EDT Acquired hemolytic anemia documented in this encounter Results * Due to [place] [employer] law, this organization might not be sharing negative HIV tests. * (ABNORMAL) CBC INCLUDES DIFFERENTIAL AND PLATELET COUNT (01/25/2022 4:05 PM EDT) WBC 5.1 3.8 - 10.8 Thousand/u L [facility] RBC 2.57(L) 4.20 - 5.80 Million/uL [facility] Hemoglobin 8.5(L) 13.2 - 17.1 g/dL [facility] Hematocrit 25.4(L) 38.5 - 50.0 % [facility] MCV 98.8 80.0 - 100.0 fL [facility] MCH 33.1(H) 27.0 - 33.0 pg [facility] MCHC 33.5 32.0 - 36.0 g/dL [facility] RDW 13.7 11.0 - 15.0 % [facility] PLT 250 140 - 400 Thousand/u L [facility] MPV 9.8 7.5 - 12.5 fL [facility] Neutrophils # 2463 1500 - 7800 cells/uL [facility] Lymphocytes # 1953 850 - 3900 cells/uL [facility] Monocytes # 332 200 - 950 cells/uL [facility] Eosinophils # 311 15 - 500 cells/uL [facility] Basophils # 41 0 - 200 cells/uL [facility] Neutrophils % 48.3 % [facility] Lymphocytes % 38.3 % [facility] Monocytes % 6.5 % [facility] Eosinophils % 6.1 % [facility] Basophils % 0.8 % [facility] 01/25/2022 4:05 PM EDT 01/26/2022 12:50 AM EDT Narrative Resulting Agency Comment [id number] us Prince Owens MD LAB SAME DAY RESULT Final Result [facility] [address] [place] [address] * (ABNORMAL) COMPREHENSIVE METABOLIC PANEL WITH GFR (01/25/2022 4:05 PM EDT) Glucose 138(H) 65 - 99 mg/dL [facility] Comment: Fasting reference interval For someone without known diabetes, a glucose value >125 mg/dL indicates that they may have diabetes and this should be confirmed with a follow-up test. Urea Nitrogen Blood (BUN) 16 7 - 25 mg/dL [facility] Creatinine 0.76 0.70 - 1.25 mg/dL [facility] Comment: For patients >49 years of age, the reference limit for Creatinine is approximately 13% higher for people identified as -[place]anese. EGFR 98 > OR = 60 mL/min/1 .73m2 [facility] GFR () 114 > OR = 60 mL/min/1 .73m2 [facility] BUN/Creatinine Ratio NOT APPLICABLE 6 - 22 (calc) [facility] Sodium 141 135 - 146 mmol/L [facility] Potassium 4.1 3.5 - 5.3 mmol/L [facility] Chloride 101 98 - 110 mmol/L [facility] Carbon dioxide 32 20 - 32 mmol/L [facility] Calcium 9.7 8.6 - 10.3 mg/dL [facility] Protein Total (Serum) 7.5 6.1 - 8.1 g/dL [facility] Albumin 4.9 3.6 - 5.1 g/dL [facility] Globulin 2.6 1.9 - 3.7 g/dL (calc) [facility] Albumin/Globulin 1.9 1.0 - 2.5 (calc) [facility] Bilirubin Total 5.0(H) 0.2 - 1.2 mg/dL [facility] Alkaline phosphatase 47 35 - 144 U/L [facility] AST (SGOT) 13 10 - 35 U/L [facility] ALT (SGPT) 12 9 - 46 U/L [facility] 01/25/2022 4:05 PM EDT 01/26/2022 12:50 AM EDT Narrative [facility] - 01/26/2022 5:54 AM EDT Please note that this estimated [...] needs for GFR calculation. Resulting Agency Comment [id number] Prince Owens MD LABORATORY Final Resu lt Performing Organization Address [facility]/ZIP Co de Phone Number [facility] [address] [place] [address] * LACTATE DEHYDROGENASE (LDH), SERUM (01/25/2022 4:05 PM EDT) Lactate dehydrogenase 188 120 - 250 U/L [facility] 01/25/2022 4:05 PM EDT 01/26/2022 12:50 AM EDT Narrative Resulting Agency Comment [id number] Prince Owens MD LABORATORY Final Resu lt Performing Organization Address [facility] Co de Phone Number [facility] [address] [place] [address] documented in this encounter Visit Diagnoses Diagnosis Acquired hemolytic anemia (HCC) Acquired hemolytic anemia, unspecified documented in this encounter Care Teams Hat Blocking Operator Relationship Specialty Start Date End Date Manoj Agudelo I [address] [address] [place] [address] PCP - General Family Medicine 02/05/18 Prince Owens MD [address] [place] [address] Primary Hem Onc Provider Hematology/Oncology 04/18/25 documented as of this encounter
--- OUTSIDE RECORDS SUMMARY | 2025-07-08 14:32 | XMS_ITS | Encounter Summary ---
Author Organization [facility] Address [address] [place] [address] Care Team Providers Care Coat Examiner Name Role Phone SantinochristianeManoj I Primary Care Provider [phone]- [phone] Prince Owens MD Unavailable [phone] Encounter Details Date Type Department Care Team (Late Contact Info) Description 09/10/2022 Orders Only [facility] Hematology/Oncology [address] [place] [phone] Prince Owens MD [address] [place] [phone] Medications Social History Tobacco Use Types Packs/Day Years [...] Office Visit [facility] Hematology/Oncology [address] [place] [phone] Prince Owens MD [address] [place] [phone] R/S from 8-28 due to mother passing away 11/18/2025 2:00 PM EST Office Visit [facility] Dermatology [address] [place] [phone] Iván Guajardo MD [address] [place] [address] Return in about 1 year (around 11/18/2025). documented as of this encounter Visit Diagnoses Diagnosis Malignant neoplasm of urinary bladder, unspecified site (HCC) documented in this encounter Care Teams Coat Examiner Relationship Specialty Start Date End Date Manoj Agudelo I [address] [address] [place] [phone] PCP - General Family Medicine 02/05/18 Prince Owens MD [address] [place] [address] Primary Hem Onc Provider Hematology/Oncology 04/18/25 documented as of this encounter
--- OUTSIDE RECORDS SUMMARY | 2025-07-08 14:32 | XMS_ITS | Encounter Summary ---
Author Organization [facility] Address [address] [place] [address] Care Team Providers Care Pit Crane Operator Name Role Phone Manoj Agudelo Murali Primary Care Provider [phone] Prince Owens MD Unavailable [phone] Encounter Details Date Type Department Care Team (Late Contact Info) Description 04/02/2022 Orders Only [facility] Hematology/Oncology [address] [place] [phone] Prince Owens MD [address] [place] [address] Social History Tobacco Use Types Packs/Day Years Used Date Smoking Tobacco: Never Cigarettes Smokeless Tobacco: Never Sex and Gender Information Value Date Recorded Sex Assigned at Not on file Legal Sex Male 10:51 PM EDT Gender Identity Not on file Sexual Orientation Not on file documented as of this encounter Miscellaneous Notes * Result Encounter Note - Prince Owens MD - 04/02/2022 1:52 PM EDT Results normal/stable. I have notified the patient via [employer]. documented in this encounter Plan of Treatment Upcoming Encounters Date Type Department Care Team (Late Contact Info) Description 07/19/2025 9:00 AM EDT Office Visit [facility] Hematology/Oncology [address] [place] [phone] Prince Owens MD [address] [place] [address] R/S from 8-28 due to mother passing away 11/18/2025 2:00 PM EST Office Visit [facility] Dermatology [address] [place] [phone] Iván Guajardo MD [address] [place] [address] Return in about 1 year (around 11/18/2025). documented as of this encounter Procedures * Due to [place] [employer] law, this organization might not be sharing negative HIV tests. Procedure Name Priority Date/Time Associated Diagnosis Comments DIFFERENTIAL, MANUAL Routine 04/02/2022 2:06 PM EDT CBC WITH MANUAL DIFF Routine 04/02/2022 2:06 PM EDT Acquired hemolytic anemia VENIPUNCTURE Routine 04/02/2022 2:06 PM EDT Acquired hemolytic anemia COMPREHENSIVE METABOLIC PANEL WITH GFR Routine 04/02/2022 2:06 PM EDT Acquired hemolytic anemia documented in this encounter Results * Due to [place] [employer] law, this organization might not be sharing negative HIV tests. * DIFFERENTIAL, MANUAL (04/02/2022 2:06 PM EDT) Neutrophils # 2915 1500 - 7800 cells/uL [facility] Bands # 55 0 - 750 cells/uL [facility] Lymphocytes 1760 850 - 3900 cells/uL [facility] Monocytes # 385 200 - 950 cells/uL [facility] Eosinophils # 330 15 - 500 cells/uL [facility] Basophils # 55 0 - 200 cells/uL [facility] Neutrophils % 53.0 % [facility] Band Neutrophils % 1.0 % [facility] Lymphocytes % 32.0 % [facility] Monocytes % 7.0 % [facility] Eosinophils % 6.0 % [facility] Basophils % 1.0 % [facility] CBC Morphology SEE NOTE NORMAL [facility] Comment:Polychromasia 2 + 04/02/2022 2:06 PM EDT 04/03/2022 12:44 AM EDT us Prince Owens MD LABORATORY Final Resu lt Performing Organization Address [facility] Co de Phone Number [facility] [address] [place] [address] * (ABNORMAL) CBC WITH MANUAL DIFF (04/02/2022 2:06 PM EDT) WBC 5.5 3.8 - 10.8 Thousand/u L [facility] RBC 2.60(L) 4.20 - 5.80 Million/uL [facility] Hemoglobin 8.4(L) 13.2 - 17.1 g/dL [facility] Hematocrit 25.6(L) 38.5 - 50.0 % [facility] MCV 98.5 80.0 - 100.0 fL [facility] MCH 32.3 27.0 - 33.0 pg [facility] MCHC 32.8 32.0 - 36.0 g/dL [facility] RDW 13.8 11.0 - 15.0 % [facility] PLT 232 140 - 400 Thousand/u L [facility] MPV 10.4 7.5 - 12.5 fL [facility] 04/02/2022 2:06 PM EDT 04/03/2022 12:44 AM EDT Narrative Resulting Agency Comment [id number] Prince Owens MD LABORATORY Final Resu lt Performing Organization Address [facility] de Phone Number [facility] [address] [place] [address] * (ABNORMAL) COMPREHENSIVE METABOLIC PANEL WITH GFR (04/02/2022 2:06 PM EDT) Glucose 141(H) 65 - 99 mg/dL [facility] Comment: Fasting reference interval For someone without known diabetes, a glucose value >125 mg/dL indicates that they may have diabetes and this should be confirmed with a follow-up test. Urea Nitrogen Blood (BUN) 16 7 - 25 mg/dL [facility] Creatinine 0.79 0.70 - 1.25 mg/dL [facility] Comment: For patients >49 years of age, the reference limit for Creatinine is approximately 13% higher for people identified as -[place]. EGFR 97 > OR = 60 mL/min/1 .73m2 [facility] GFR () 112 > OR = 60 mL/min/1 .73m2 [facility] [...] - 144 U/L [facility] AST (SGOT) 11 10 - 35 U/L [facility] ALT (SGPT) 8(L) 9 - 46 U/L [facility] 04/02/2022 2:06 PM EDT 04/03/2022 12:44 AM EDT Narrative [facility] - 04/03/2022 4:39 AM EDT Please note that this [...] needs for GFR calculation. Resulting Agency Comment [id number] us Prince Owens MD LABORATORY Final Resu lt [facility] [address] [place] [address] * LACTATE DEHYDROGENASE (LDH), SERUM (04/02/2022 2:06 PM EDT) Lactate dehydrogenase 173 120 - 250 U/L [facility] 04/02/2022 2:06 PM EDT 04/03/2022 12:44 AM EDT Narrative Resulting Agency Comment [id number] Prince Owens MD LABORATORY Final Resu lt [facility] [address] [place] [address] documented in this encounter Visit Diagnoses Diagnosis Acquired hemolytic anemia (HCC) Acquired hemolytic anemia, unspecified documented in this encounter Care Teams Pit Crane Operator Relationship Specialty Start Date End Date Manoj Agudelo I [address] [address] [place] [phone] PCP - General Family Medicine 02/05/18 Prince Owens MD [address] [place] [address] Primary Hem Onc Provider Hematology/Oncology 04/18/25 documented as of this encounter
--- OUTSIDE RECORDS SUMMARY | 2025-07-08 14:32 | XMS_ITS | Encounter Summary ---
Author Organization [facility] Address [address] [place] [address] Care Team Providers Care Paint Pourer Name Role Phone Manoj Agudelo I Primary Care Provider [phone]- [phone] Prince Owens MD Unavailable [phone] Encounter Details Date Type Department Care Team ([facility] Contact Info) Description 04/06/2025 Orders Only [facility] Hematology/Oncology [address] [place] [phone] Prince Owens MD [address] [place] [address] Social History Tobacco Use Types Packs/Day Years [...] Upcoming Encounters Date Type Department Care Team ([facility] Contact Info) Description 07/19/2025 9:00 AM EDT Office Visit [facility] Hematology/Oncology [address] [place] [phone] Prince Owens MD [address] [place] [address] R/S from 8-28 due to mother passing away 11/18/2025 2:00 PM EST Office Visit [facility] Dermatology [address] [place] [address] Iván Guajardo MD [address] [place] [address] Return in about 1 year (around 11/18/2025). documented as of this encounter Procedures * Due to [place] [employer] law, this organization might not be sharing negative HIV tests. Procedure Name Priority Date/Time Associated Diagnosis Comments CBC (H/H, RBC, INDICES,WBC, PLT) Routine 04/06/2025 9:57 AM EDT Acquired hemolytic anemia (HCC) LACTATE DEHYDROGENASE (LDH), SERUM Routine 04/06/2025 9:57 AM EDT Acquired hemolytic anemia (HCC) COMPREHENSIVE METABOLIC PANEL WITH GFR Routine 04/06/2025 9:57 AM EDT Acquired hemolytic anemia (HCC) documented in this encounter Results * Due to [place] [employer] law, this organization might not be sharing negative HIV tests. * (ABNORMAL) COMPREHENSIVE METABOLIC PANEL WITH GFR (04/06/2025 9:57 AM EDT) Glucose 145(H) 65 - 99 mg/dL [facility] 135 - 146 mmol/L [facility] Potassium 3.3(L) 3.5 - 5.3 mmol/L [facility] Chloride 106 98 - 110 mmol/L [facility] Carbon dioxide 25 20 - 32 mmol/L [facility] Calcium 8.7 8.6 - 10.3 mg/dL [facility] Protein Total (Serum) 6.1 6.1 - 8.1 g/dL [facility] Albumin 4.3 3.6 - 5.1 g/dL [facility] Globulin 1.8(L) 1.9 - 3.7 g/dL (calc) [facility] Albumin/Globuli n 2.4 1.0 - 2.5 (calc) [facility] Bilirubin Total 2.0(H) 0.2 - 1.2 mg/dL [facility] Alkaline phosphatase 51 35 - 144 U/L [facility] AST (SGOT) 12 10 - 35 U/L [facility] ALT (SGPT) 15 9 - 46 U/L [facility] 04/06/2025 9:57 AM EDT 04/06/2025 11:34 AM EDT Narrative [facility] - 04/06/2025 7:07 PM EDT Please note that this estimated [...] needs for GFR calculation. Resulting Agency Comment [id number] Prince Owens MD LABORATORY Final Resu lt [facility] [address] [place] [address] * LACTATE DEHYDROGENASE (LDH), SERUM (04/06/2025 9:57 AM EDT) Lactate dehydrogenase 156 120 - 250 U/L [facility] 04/06/2025 9:57 AM EDT 04/06/2025 11:34 AM EDT Narrative Resulting Agency Comment [id number] us Prince Owens MD LABORATORY Final Resu lt [facility] [address] [place] [address] * (ABNORMAL) CBC (H/H, RBC, INDICES,WBC, PLT) (04/06/2025 9:57 AM EDT) WBC 6.6 3.8 - 10.8 Thousand/ uL [facility] RBC 3.19(L) 4.20 - 5.80 Million/u L [facility] Hemoglobin 10.5(L) 13.2 - 17.1 g/dL [facility] Hematocrit 33.3(L) 38.5 - 50.0 % [facility] MCV 104.4(H) 80.0 - 100.0 fL [facility] MCH [...] 11.0 - 15.0 % [facility] PLT 237 140 - 400 Thousand/ uL [facility] MPV 9.5 7.5 - 12.5 fL [facility] 04/06/2025 9:57 AM EDT 04/06/2025 11:34 AM EDT Narrative Resulting Agency Comment [id number] us Prince Owens MD LAB SAME DAY RESULT Final Result Performing Organization Address City/State/[facility] de Phone Number [facility] [address] [place] [address] documented in this encounter Visit Diagnoses Diagnosis Acquired hemolytic anemia (HCC) Acquired hemolytic anemia, unspecified documented in this encounter Care Teams Paint Pourer Relationship Specialty Start Date End Date Manoj Agudelo I [address] [phone] PCP - General Family Medicine 02/05/18 Prince Owens MD [address] [place] [address] Primary Hem Onc Provider Hematology/Oncology 04/18/25 documented as of this encounter
--- OUTSIDE RECORDS SUMMARY | 2025-07-08 14:32 | XMS_ITS | Encounter Summary ---
Author Organization [facility] Address [address] [place] [address] Care Team Providers Care Cyber Security Administrator Name Role Phone Manoj Agudelo I Primary Care Provider [phone]- [phone] Prince Owens MD Unavailable [phone] Encounter Details Date Type Department Care Team (Late Contact Info) Description 11/26/2022 Orders Only [facility] [address] [place] [phone] Prince Owens MD [address] [place] [address] Social History Tobacco Use Types Packs/Day Years Used Date Smoking Tobacco: Never Cigarettes Smokeless Tobacco: Never Sex and Gender Information Value Date Recorded Sex Assigned at Not on file Legal Sex Male 10:51 PM EDT Gender Identity Not on file Sexual Orientation Not on file documented as of this encounter Miscellaneous Notes * Result Encounter Note - Prince Owens MD - 11/26/2022 9:29 AM EST Notified patient of results via [employer] message. documented in this encounter Plan of Treatment Upcoming Encounters Date Type Department Care Team (Late Contact Info) Description 07/19/2025 9:00 AM EDT Office Visit [facility] Hematology/Oncology [address] [place] [phone] Prince Owens MD [address] [place] [address] R/S from 8- due to mother passing away 11/18/2025 2:00 PM EST Office Visit [facility] Dermatology [address] [place] [phone] Iván Guajardo MD [address] [place] [address] Return in about 1 year (around 11/18/2025). documented as of this encounter Procedures * Due to [place] state law, this organization might not be sharing negative HIV tests. Procedure Name Priority Date/Time Associated Diagnosis Comments COMPREHENSIVE METABOLIC PANEL, PLASMA STAT (All results called to provider) 11/26/2022 9:29 AM EST Acquired hemolytic anemia CBC INCLUDES DIFFERENTIAL AND PLATELET COUNT STAT (All results called to provider) 11/26/2022 9:29 AM EST Acquired hemolytic anemia LACTATE DEHYDROGENASE (LDH), SERUM Routine 11/26/2022 9:29 AM EST Acquired hemolytic anemia documented in this encounter Results * Due to [place] state law, this organization might not be sharing negative HIV tests. * LACTATE DEHYDROGENASE (LDH), SERUM (11/26/2022 9:29 AM EST) Lactate dehydrogenase 178 120 - 250 U/L [facility] 11/26/2022 9:29 AM EST 11/26/2022 9:39 AM EST us Prince Owens MD LABORATORY Final Resu lt [facility] [address] [place] [address] * (ABNORMAL) CBC INCLUDES DIFFERENTIAL AND PLATELET COUNT (11/26/2022 9:29 AM EST) WBC 5.0 3.8 - 10.8 Thousand/u L [facility] RBC 2.89(L) 4.20 - 5.80 Million/uL [facility] Hemoglobin 9.5(L) 13.2 - 17.1 g/dL [facility] Hematocrit 29.1(L) 38.5 - 50.0 % [facility] MCV 100.7(H) 80.0 - 100.0 fL [facility] MCH 32.9 27.0 - 33.0 pg [facility] MCHC 32.6 32.0 - 36.0 g/dL [facility] RDW 14.3 11.0 - 15.0 % [facility] PLT 196 140 - 400 Thousand/u L [facility] MPV 8.4 7.5 - 12.5 fL [facility] Neutrophils # 2880 1500 - 7800 cells/uL [facility] Lymphocytes # 1550 850 - 3900 cells/uL [facility] Monocytes # 360 200 - 950 cells/uL [facility] Eosinophils # 180 15 - 500 cells/uL [facility] Basophils # 30 0 - 200 cells/uL [facility] Neutrophils % 57.6 % [facility] Lymphocytes % 31.0 % [facility] Monocytes % 7.2 % [facility] Eosinophils % 3.6 % [facility] Basophils % 0.6 % [facility] 11/26/2022 9:29 AM EST 11/26/2022 9:39 AM EST Narrative Resulting Agency Comment [id number] us Prince Owens MD LAB SAME DAY RESULT Final Result Performing Organization Address City/State/[facility] Co de Phone Number [facility] [address] [place] [address] * (ABNORMAL) COMPREHENSIVE METABOLIC PANEL, PLASMA (11/26/2022 9:29 AM EST) Glucose 188(H) 65 - 99 mg/dL [facility] Comment: Fasting reference interval For someone without known diabetes, a glucose value >125 mg/dL indicates that they may have diabetes and this should be confirmed with a follow-up test. Urea Nitrogen Blood (BUN) 17 7 - 25 mg/dL [facility] Creatinine 0.79 0.70 - 1.35 mg/dL [facility] EGFR 100 > OR = 60 mL/min/1 .73m2 [facility] Comment: The eGFR is based on the CKD-EPI 2020 equation. To calculate the new eGFR from a previous Creatinine or Cystatin C result, go to https://www.kidney.org/professionals/ kdoqi/gfr%5Fcalculator BUN/Creatinine Ratio NOT APPLICABLE 6 - 22 (calc) [facility] Sodium 141 135 - 146 mmol/L [facility] Potassium 4.6 3.4 - 4.8 mmol/L [facility] Chloride 103 98 - 110 mmol/L [facility] Carbon dioxide 29 20 - 32 mmol/L [facility] Calcium 9.3 8.6 - 10.3 mg/dL [facility] Protein Total (Serum) 7.4 6.4 - 8.4 g/dL [facility] Albumin 4.7 3.6 - 5.1 g/dL [facility] Globulin 2.7 2.2 - 4.0 g/dL (calc) [facility] Albumin/Globuli n 1.7 0.9 - 2.3 (calc) [facility] Bilirubin Total 4.8(H) 0.2 - 1.2 mg/dL [facility] Alkaline phosphatase 47 35 - 144 U/L [facility] AST (SGOT) 15 10 - 35 U/L [facility] ALT (SGPT) 16 9 - 46 U/L [facility] 11/26/2022 9:29 AM EST 11/26/2022 9:39 AM EST Narrative Resulting Agency Comment [id number] us Prince Owens MD LABORATORY Final Resu lt Performing Organization Address City/State/[facility] Co de Phone Number [facility] [address] [place] [address] documented in this encounter Visit Diagnoses Diagnosis Acquired hemolytic anemia (HCC) Acquired hemolytic anemia, unspecified documented in this encounter Care Teams Cyber Security Administrator Relationship Specialty Start Date End Date Manoj Agudelo I [place] [address] [place] [phone] PCP - General Family Medicine 02/05/18 Prince Owens MD [address] [place] [address] Primary Hem Onc Provider Hematology/Oncology 04/18/25 documented as of this encounter
--- OUTSIDE RECORDS SUMMARY | 2025-07-08 14:32 | XMS_ITS | Encounter Summary ---
Author Organization [facility] Address [address] [place] [address] Care Team Providers Care Supervisor [employer] Name Role Phone Manoj Agudelo I Primary Care Provider [phone] Prince Owens MD Unavailable [phone] Encounter Details Date Type Department Care Team (Late Contact Info) Description 11/09/2018 Orders Only [facility] Hematology/Oncology [address] [phone] Prince Owens MD [address] [place] [address] [phone] Social History Tobacco Use Types Packs/Day Years [...] EDT Office Visit [facility] Hematology/Oncology [address] [place] [phone] Prince Owens MD [address] [place] [phone] R/S from 8-28 due to mother passing away 11/18/2025 2:00 PM EST Office Visit [facility] Dermatology [address] [place] [phone] Iván Guajardo MD [address] [place] [address] Return in about 1 year (around 11/18/2025). documented as of this encounter Procedures * Due to [place] [employer] law, this organization might not be sharing negative HIV tests. Procedure Name Priority Date/Time Associated Diagnosis Comments CBC INCLUDES DIFFERENTIAL AND PLATELET COUNT Routine 11/09/2018 5:43 PM EST Acquired hemolytic anemia COMPREHENSIVE METABOLIC PANEL WITH GFR Routine 11/09/2018 5:43 PM EST Acquired hemolytic anemia LACTATE DEHYDROGENASE (LDH), SERUM Routine 11/09/2018 5:42 PM EST Acquired hemolytic anemia documented in this encounter Results * Due to [place] [employer] law, this organization might not be sharing negative HIV tests. * (ABNORMAL) COMPREHENSIVE METABOLIC PANEL WITH GFR (11/09/2018 5:43 PM EST) Glucose 100(H) 65 - 99 mg/dl [facility] Urea Nitrogen Blood (BUN) 27(H) 7 - 25 mg/dL [facility] Creatinine 1.19 0.50 - 1.20 mg/dL [facility] Sodium 140 136 - 145 mmo/L [facility] Potassium 4.3 3.5 - 5.3 mmol/L [facility] Chloride 101 98 - 107 mmo/L [facility] Calcium 9.4 8.5 - 10.4 mg/dL [facility] Protein Total (Serum) 7.3 6.0 - 8.3 g/dL [facility] Albumin 5.2 3.5 - 5.3 g/dL [facility] Globulin 2 2 - 4 G/DL [facility] Bilirubin Total 3.37(H) 0.00 - 1.20 mg/dL [facility] Alkaline phosphatase 68 40 - 115 U/L [facility] AST (SGOT) 18 <45 U/L [facility] ALT (SGPT) 18 <67 U/L [facility] Carbon dioxide 25 23 - 33 mmol/L [facility] GFR 67 >60 ml/min [facility] Comment:If the patient is Af r[place] Citizen, please multiply result by 1.210 11/09/2018 5:43 PM EST 11/09/2018 5:43 PM EST Narrative [facility] - 11/10/2018 10:33 AM EST Patient's primary care provider is: N/A Testing performed at: [facility], [address] [place] [address] , [place], [address], Stiff Neck Loader: Bairon Kevin MD us Prince Owens MD LABORATORY Final Resu lt [address] [address] DIRECTOR Bairon Kevin MD * (ABNORMAL) CBC INCLUDES DIFFERENTIAL AND PLATELET COUNT (11/09/2018 5:43 PM EST) WBC 8.7 3.8 - 10.8 K/uL [facility] Neutrophils # 4.5 1.5 - 7.8 K/uL [facility] Immature Granulocytes # 0.1 0.0 - 0.1 K/uL [facility] Lymphocytes # 3.3 0.9 - 3.9 K/uL [facility] Monocytes # 0.6 0.2 - 1.0 K/uL [facility] Eosinophils # 0.2 0.0 - 0.5 K/uL [facility] Basophils # 0.0 0.0 - 0.2 K/uL [facility] Neutrophils % 51.7 % [facility] Immature Granulocytes % 0.70 % [facility] Lymphocytes % 38.3 % [facility] Monocytes % 6.6 % [facility] Eosinophils % 2.5 % [facility] Basophils % 0.2 % [facility] RBC 2.90(L) 4.20 - 5.80 M/uL [facility] Hemoglobin 9.7(L) 13.2 - 17.1 g/dL [facility] Hematocrit 30.4(L) 38.5 - 50.0 % [facility] MCV 104.8(H) 80.0 - 100.0 fl [facility] MCH 33.4(H) 27.0 - 33.0 pg [facility] MCHC 31.9(L) 32.0 - 36.0 g/dL [facility] RDW 16.0(H) 11.0 - 15.0 % [facility] PLT 263 140 - 400 K/uL [facility] 11/09/2018 5:43 PM EST 11/09/2018 5:43 PM EST Narrative [facility] - 11/09/2018 6:29 PM EST Patient's primary care provider is: N/A Testing performed at: [facility], [address] [place] [address], [address], Stiff Neck Loader: Bairon Kevin MD Prince Owens MD LAB SAME DAY RESULT Final Result Performing Organization Address [facility] Co de Phone Number [address] [address] DIRECTOR Bairon Kevin MD * LACTATE DEHYDROGENASE (LDH), SERUM (11/09/2018 5:42 PM EST) Lactate dehydrogenase 223 120 - 250 U/L [facility] 11/09/2018 5:42 PM EST 11/09/2018 10:53 PM EST Narrative Resulting Agency Comment [id number] Prince Owens MD LABORATORY Final Resu lt [facility] [address] [place] [address] documented in this encounter Visit Diagnoses Diagnosis Acquired hemolytic anemia (HCC) Acquired hemolytic anemia, unspecified documented in this encounter Care Teams Supervisor [employer] Relationship Specialty Start Date End Date Manoj Agudelo I [place] [address] [place] [phone] PCP - General Family Medicine 02/05/18 Prince Owens MD [address] [place] [address] Primary Hem Onc Provider Hematology/Oncology 04/18/25 documented as of this encounter
--- OUTSIDE RECORDS SUMMARY | 2025-07-08 14:32 | XMS_ITS | Encounter Summary ---
Author Organization [facility] Address [address] [place] [address] Care Team Providers Care Home Health Administrator Name Role Phone Manoj Agudelo I Primary Care Provider [phone] Prince Owens MD Unavailable Encounter Details Date Type Department Care Team ([facility] Contact Info) Description 04/27/2025 Orders Only [facility] Hematology/Oncology [address] [place] [phone] Prince Owens MD [address] [place] [address] Social History Tobacco Use Types Packs/Day Years [...] Upcoming Encounters Date Type Department Care Team ([facility] Contact Info) Description 07/19/2025 9:00 AM EDT Office Visit [facility] Hematology/Oncology [address] [place] [phone] Prince Owens MD [address] [place] [address] R/S from 8-28 due to mother passing away 11/18/2025 2:00 PM EST Office Visit [facility] Dermatology [address] [place] [phone] Iván Guajardo MD [address] [place] [address] Return in about 1 year (around 11/18/2025). documented as of this encounter Procedures * Due to [place] [employer] law, this organization might not be sharing negative HIV tests. Procedure Name Priority Date/Time Associated Diagnosis Comments CBC (H/H, RBC, INDICES,WBC, PLT) Routine 04/27/2025 11:40 AM EDT Acquired hemolytic anemia (HCC) LACTATE DEHYDROGENASE (LDH), SERUM Routine 04/27/2025 11:40 AM EDT Acquired hemolytic anemia (HCC) COMPREHENSIVE METABOLIC PANEL WITH GFR Routine 04/27/2025 11:40 AM EDT Acquired hemolytic anemia (HCC) documented in this encounter Results * Due to [place] [employer] law, this organization might not be sharing negative HIV tests. * (ABNORMAL) COMPREHENSIVE METABOLIC PANEL WITH GFR (04/27/2025 11:40 AM EDT) Glucose 162(H) 65 - 99 mg/dL [facility] Comment: Fasting reference interval For someone without known diabetes, a glucose value >125 mg/dL indicates that they may have diabetes and this should be confirmed with a follow-up test. Urea Nitrogen Blood (BUN) 22 7 - 25 mg/dL [facility] Creatinine 1.02 0.70 - 1.35 mg/dL [facility] EGFR [...] 23 9 - 46 U/L [facility] 04/27/2025 11:4 0 AM EDT 04/27/2025 11:52 PM EDT Narrative [facility] - 04/29/2025 2:04 AM EDT Please note that this estimated [...] needs for GFR calculation. Resulting Agency Comment [id number] us Prince Owens MD LABORATORY Final Resu lt [facility] [address] [place] [address] * LACTATE DEHYDROGENASE (LDH), SERUM (04/27/2025 11:40 AM EDT) Lactate dehydrogenase 196 120 - 250 U/L [facility] 04/27/2025 11:4 0 AM EDT 04/27/2025 11:52 PM EDT Narrative Resulting Agency Comment [id number] us Prince Owens MD LABORATORY Final Resu lt [facility] [address] [place] [address] * (ABNORMAL) CBC (H/H, RBC, INDICES,WBC, PLT) (04/27/2025 11:40 AM EDT) WBC 7.8 3.8 - 10.8 Thousand/ uL [facility] RBC 3.22(L) 4.20 - 5.80 Million/u L [facility] Hemoglobin 10.7(L) 13.2 - 17.1 g/dL [facility] Hematocrit 32.9(L) 38.5 - 50.0 % [facility] MCV 102.2(H) 80.0 - 100.0 fL [facility] MCH [...] parameters and the patient's clinical condition. RDW 13.5 11.0 - 15.0 % [facility] PLT 217 140 - 400 Thousand/ uL [facility] MPV 9.8 7.5 - 12.5 fL [facility] 04/27/2025 11:4 0 AM EDT 04/27/2025 11:52 PM EDT Narrative Resulting Agency Comment [id number] us Prince Owens MD LAB SAME DAY RESULT Final Result Performing Organization Address City/State/[facility] Co de Phone Number [facility] [address] [place] [address] documented in this encounter Visit Diagnoses Diagnosis Acquired hemolytic anemia (HCC) Acquired hemolytic anemia, unspecified documented in this encounter Care Teams Home Health Administrator Relationship Specialty Start Date End Date Manoj Agudelo I [address] [phone] PCP - General Family Medicine 02/05/18 Prince Owens MD [address] [place] [address] Primary Hem Onc Provider Hematology/Oncology 04/18/25 documented as of this encounter
--- OUTSIDE RECORDS SUMMARY | 2025-07-08 14:32 | XMS_ITS | Encounter Summary ---
Author Organization [facility] Address [address] [place] [address] Care Team Providers Care Inorganic Chemistry Teacher Name Role Phone SantinochristianeManoj I Primary Care Provider [phone]- [phone] Prince Owens MD Unavailable [phone] Encounter Details Date Type Department Care Team ([facility] Contact Info) Description 04/13/2025 Orders Only [facility] Hematology/Oncology [address] [place] [phone] Prince Owens MD [address] [place] [address] Social History Tobacco Use Types Packs/Day Years [...] Upcoming Encounters Date Type Department Care Team ([facility] Contact Info) Description 07/19/2025 9:00 AM EDT Office Visit [facility] Hematology/Oncology [address] [place] [phone] Prince Owens MD 5 [place] [address] R/S from 8-28 due to mother passing away 11/18/2025 2:00 PM EST Office Visit [facility] Dermatology 5 [place] [phone] Iván Guajardo MD 5 [place] [address] Return in about 1 year (around 11/18/2025). documented as of this encounter Procedures * Due to [facility] law, this organization might not be sharing negative HIV tests. Procedure Name Priority Date/Time Associated Diagnosis Comments CBC (H/H, RBC, INDICES,WBC, PLT) Routine 04/13/2025 10:39 AM EDT Acquired hemolytic anemia (HCC) LACTATE DEHYDROGENASE (LDH), SERUM Routine 04/13/2025 10:39 AM EDT Acquired hemolytic anemia (HCC) COMPREHENSIVE METABOLIC PANEL WITH GFR Routine 04/13/2025 10:39 AM EDT Acquired hemolytic anemia (HCC) documented in this encounter Results * Due to [employer] law, this organization might not be sharing negative HIV tests. * (ABNORMAL) CBC (H/H, RBC, INDICES,WBC, PLT) (04/13/2025 10:39 AM EDT) WBC 8.9 3.8 - 10.8 Thousand/ uL [facility] RBC 3.65(L) 4.20 - 5.80 Million/u L [facility] Hemoglobin 12.0(L) 13.2 - 17.1 g/dL [facility] Hematocrit 37.5(L) 38.5 - 50.0 % [facility] MCV 102.7(H) 80.0 - 100.0 fL [facility] MCH 32.9 27.0 - 33.0 pg [facility] MCHC 32.0 32.0 - 36.0 g/dL [facility] Comment: For adults, a slight decrease in the calculated MCHC value (in the range of 30 to 32 g/dL) is most likely not clinically significant; however, it should be interpreted with caution in correlation with other red cell parameters and the patient's clinical condition. RDW 12.3 11.0 - 15.0 % [facility] PLT 284 140 - 400 Thousand/ uL [facility] MPV 9.9 7.5 - 12.5 fL [facility] 04/13/2025 10:3 9 AM EDT 04/13/2025 10:50 PM EDT Narrative Resulting Agency Comment [id number] Prince Owens MD LAB SAME DAY RESULT Final Result Performing Organization Address [facility] Co de Phone Number [facility] [address] [place] [address] * LACTATE DEHYDROGENASE (LDH), SERUM (04/13/2025 10:39 AM EDT) Lactate dehydrogenase 170 120 - 250 U/L [facility] 04/13/2025 10:3 9 AM EDT 04/13/2025 10:50 PM EDT Narrative Resulting Agency Comment [id number] Prince Owens MD LABORATORY Final Resu lt Performing Organization Address [facility] de Phone Number [facility] [address] [place] [address] * (ABNORMAL) COMPREHENSIVE METABOLIC PANEL WITH GFR (04/13/2025 10:39 AM EDT) Glucose 160(H) 65 - 99 mg/dL [facility] Comment: Fasting reference interval For someone without known diabetes, a glucose value >125 mg/dL indicates that they may have diabetes and this should be confirmed with a follow-up test. Urea Nitrogen Blood (BUN) 25 7 - 25 mg/dL [facility] Creatinine 1.01 0.70 - 1.35 mg/dL [facility] EGFR 83 > OR = 60 mL/min/1. 73m2 [facility] [...] - 2.5 (calc) [facility] Bilirubin Total 1.9(H) 0.2 - 1.2 mg/dL [facility] Alkaline phosphatase 53 35 - 144 U/L [facility] AST (SGOT) 12 10 - 35 U/L [facility] ALT (SGPT) 25 9 - 46 U/L [facility] 04/13/2025 10:3 9 AM EDT 04/13/2025 10:50 PM EDT Narrative [facility] - 04/15/2025 7:18 AM EDT Please note that this estimated [...] needs for GFR calculation. Resulting Agency Comment [id number] us Prince Owens MD LABORATORY Final Resu lt [facility] [address] [place] [address] documented in this encounter Visit Diagnoses Diagnosis Acquired hemolytic anemia (HCC) Acquired hemolytic anemia, unspecified documented in this encounter Care Teams Inorganic Chemistry Teacher Relationship Specialty Start Date End Date Manoj Agudelo I [place] [address] [address] [place] [phone] PCP - General Family Medicine 02/05/18 Prince Owens MD [address] [place] [address] Primary Hem Onc Provider Hematology/Oncology 04/18/25 documented as of this encounter
--- OUTSIDE RECORDS SUMMARY | 2025-07-08 14:32 | XMS_ITS | Encounter Summary ---
Author Organization [facility] Address [address] [place] [address] Care Team Providers Care Header Boss Name Role Phone Manoj Agudelo I Primary Care Provider [phone] Prince Owens MD Unavailable [phone] Encounter Details Date Type Department Care Team (Late Contact Info) Description 12/12/2018 Orders Only [facility] Hematology/Oncology [address] [phone] Prince Owens MD 5 [place] [address] Social History Tobacco Use Types Packs/Day Years Used Date Smoking Tobacco: Never Cigarettes Smokeless Tobacco: Never Sex and Gender Information Value Date Recorded Sex Assigned at Not on file Legal Sex Male 10:51 PM EDT Gender Identity Not on file Sexual Orientation Not on file documented as of this encounter Progress Notes * Prince Owens MD - 12/14/2018 12:47 PM EST Blood levels are back to normal for you.. documented in this encounter Plan of Treatment Upcoming Encounters Date Type Department Care Team (Late Contact Info) Description 07/19/2025 9:00 AM EDT Office Visit [facility] Hematology/Oncology [address] [place] [phone] Prince Owens MD 5 [place] [address] R/S from 8-28 due to mother passing away 11/18/2025 2:00 PM EST Office Visit [facility] Dermatology 5 [place] [phone] Iván Guajardo MD [address] [place] [address] Return in about 1 year (around 11/18/2025). documented as of this encounter Procedures * Due to [facility] law, this organization might not be sharing negative HIV tests. Procedure Name Priority Date/Time Associated Diagnosis Comments CBC INCLUDES DIFFERENTIAL AND PLATELET COUNT Routine 12/12/2018 2:19 PM EST Acquired hemolytic anemia LACTATE DEHYDROGENASE (LDH), SERUM Routine 12/12/2018 2:19 PM EST Acquired hemolytic anemia COMPREHENSIVE METABOLIC PANEL WITH GFR Routine 12/12/2018 2:19 PM EST Acquired hemolytic anemia documented in this encounter Results * Due to [place] [employer] law, this organization might not be sharing negative HIV tests. * LACTATE DEHYDROGENASE (LDH), SERUM (12/12/2018 2:19 PM EST) Lactate dehydrogenase 171 120 - 250 U/L [facility] 12/12/2018 2:19 PM EST 12/12/2018 11:34 PM EST Narrative Resulting Agency Comment [id number] us Prince Owens MD LABORATORY Final Resu lt [facility] [address] [place] [address] * (ABNORMAL) COMPREHENSIVE METABOLIC PANEL WITH GFR (12/12/2018 2:19 PM EST) Glucose 178(H) 65 - 99 mg/dL [facility] Comment: Fasting reference interval For someone without known diabetes, a glucose value >125 mg/dL indicates that they may have diabetes and this should be confirmed with a follow-up test. Urea Nitrogen Blood (BUN) 21 7 - 25 mg/dL [facility] Creatinine 0.94 0.70 - 1.33 mg/dL [facility] Comment: For patients >49 years of age, the reference limit for Creatinine is approximately 13% higher for people identified as -Marshallese. EGFR 89 > OR = 60 mL/min/1 .73m2 [facility] GFR () 103 > OR = 60 mL/min/1 .73m2 [facility] [...] - 2.5 (calc) [facility] Bilirubin Total 2.5(H) 0.2 - 1.2 mg/dL [facility] Alkaline phosphatase 60 40 - 115 U/L [facility] AST (SGOT) 14 10 - 35 U/L [facility] ALT (SGPT) 16 9 - 46 U/L [facility] 12/12/2018 2:19 PM EST 12/12/2018 11:34 PM EST Narrative [facility] - 12/13/2018 4:53 AM EST Please note that this estimated [...] needs for GFR calculation. Resulting Agency Comment [id number] us Prince Owens MD LABORATORY Final Resu lt [facility] [address] [place] [address] * (ABNORMAL) CBC INCLUDES DIFFERENTIAL AND PLATELET COUNT (12/12/2018 2:19 PM EST) WBC 5.3 3.8 - 10.8 [...] 11.0 - 15.0 % [facility] PLT 246 140 - 400 Thousand/u L [facility] MPV 9.9 7.5 - 12.5 fL [facility] Neutrophils # 2380 1500 - 7800 cells/uL [facility] Lymphocytes # 2449 850 - 3900 cells/uL [facility] Monocytes # 292 200 - 950 cells/uL [facility] Eosinophils # 148 15 - 500 cells/uL [facility] Basophils # 32 0 - 200 cells/uL [facility] Neutrophils % 44.9 % [facility] Lymphocytes % 46.2 % [facility] Monocytes % 5.5 % [facility] Eosinophils % 2.8 % [facility] Basophils % 0.6 % [facility] 12/12/2018 2:19 PM EST 12/12/2018 11:34 PM EST Narrative Resulting Agency Comment [id number] us Prince Owens MD LAB SAME DAY RESULT Final Result Performing Organization Address City/State/[facility] de Phone Number [facility] [address] [place] [address] documented in this encounter Visit Diagnoses Diagnosis Acquired hemolytic anemia (HCC) Acquired hemolytic anemia, unspecified documented in this encounter Care Teams Header Boss Relationship Specialty Start Date End Date Manoj Agudelo I [address] [phone] PCP - General Family Medicine 02/05/18 Prince Owens MD [address] [place] [address] Primary Hem Onc Provider Hematology/Oncology 04/18/25 documented as of this encounter
--- OUTSIDE RECORDS SUMMARY | 2025-07-08 14:32 | XMS_ITS | Encounter Summary ---
Author Organization [facility] Address [address] [place] [address] Care Team Providers Care Chimney Builder Name Role Phone Manoj Agudelo I Primary Care Provider [phone]- [phone] Prince Owens MD Unavailable [phone] Encounter Details Date Type Department Care Team (Late Contact Info) Description 02/06/2019 Orders Only [facility] Hematology/Oncology [address] [phone] Prince Owens MD [address] [place] [address] Social History Tobacco Use Types Packs/Day Years [...] EDT Office Visit [facility] Hematology/Oncology [address] [place] [phone] Prince Owens MD [address] [place] [address] R/S from 8-28 due to mother passing away 11/18/2025 2:00 PM EST Office Visit [facility] Dermatology [address] [place] [phone] Iván Guajardo MD 5 [place] [address] Return in about 1 year (around 11/18/2025). documented as of this encounter Procedures * Due to [facility] law, this organization might not be sharing negative HIV tests. Procedure Name Priority Date/Time Associated Diagnosis Comments CBC INCLUDES DIFFERENTIAL AND PLATELET COUNT Routine 02/06/2019 12:35 PM EDT Acquired hemolytic anemia LACTATE DEHYDROGENASE (LDH), SERUM Routine 02/06/2019 12:35 PM EDT Acquired hemolytic anemia BILIRUBIN, TOTAL, SERUM (ADULT) Routine 02/06/2019 12:35 PM EDT Acquired hemolytic anemia documented in this encounter Results * Due to [place] [employer] law, this organization might not be sharing negative HIV tests. * (ABNORMAL) BILIRUBIN, TOTAL, SERUM (02/06/2019 12:35 PM EDT) Bilirubin Total 7.5(H) 0.2 - 1.2 mg/dL [facility] 02/06/2019 12:3 5 PM EDT 02/07/2019 2:55 AM EDT Narrative Resulting Agency Comment [id number] us Prince Owens MD LAB SAME DAY RESULT Final Result [facility] [address] [place] [address] * LACTATE DEHYDROGENASE (LDH), SERUM (02/06/2019 12:35 PM EDT) Lactate dehydrogenase 241 120 - 250 U/L [facility] 02/06/2019 12:3 5 PM EDT 02/07/2019 2:55 AM EDT Narrative Resulting Agency Comment [id number] us Prince Owens MD LABORATORY Final Resu lt [facility] [address] [place] [address] * (ABNORMAL) CBC INCLUDES DIFFERENTIAL AND PLATELET COUNT (02/06/2019 12:35 PM EDT) WBC 5.7 3.8 - 10.8 Thousand/u L [facility] RBC 2.50(L) 4.20 - 5.80 Million/uL [facility] Hemoglobin 8.3(L) 13.2 - 17.1 g/dL [facility] Hematocrit 24.6(L) 38.5 - 50.0 % [facility] MCV 98.4 80.0 - 100.0 fL [facility] MCH 33.2(H) 27.0 - 33.0 pg [facility] MCHC 33.7 32.0 - 36.0 g/dL [facility] RDW 12.4 11.0 - 15.0 % [facility] PLT 178 140 - 400 Thousand/u L [facility] MPV 10.3 7.5 - 12.5 fL [facility] Neutrophils # 3648 1500 - 7800 cells/uL [facility] Lymphocytes # 1408 850 - 3900 cells/uL [facility] Monocytes # 479 200 - 950 cells/uL [facility] Eosinophils # 148 15 - 500 cells/uL [facility] Basophils # 17 0 - 200 cells/uL [facility] Neutrophils % 64 % [facility] Lymphocytes % 24.7 % [facility] Monocytes % 8.4 % [facility] Eosinophils % 2.6 % [facility] Basophils % 0.3 % [facility] 02/06/2019 12:3 5 PM EDT 02/07/2019 2:55 AM EDT Narrative Resulting Agency Comment [id number] us Prince Owens MD LAB SAME DAY RESULT Final Result Performing Organization Address City/State/[facility] Co de Phone Number [facility] [address] [place] [address] documented in this encounter Visit Diagnoses Diagnosis Acquired hemolytic anemia (HCC) Acquired hemolytic anemia, unspecified documented in this encounter Care Teams Chimney Builder Relationship Specialty Start Date End Date Manoj Agudelo I [address] [phone] PCP - General Family Medicine 02/05/18 Prince Owens MD [address] [place] [address] Primary Hem Onc Provider Hematology/Oncology 04/18/25 documented as of this encounter
--- OUTSIDE RECORDS SUMMARY | 2025-07-08 14:32 | XMS_ITS | Encounter Summary ---
Author Organization [facility] Address [address] [place] [address] Care Team Providers Care Assistant Director Of Security Name Role Phone Manoj Agudelo I Primary Care Provider [phone] Prince Owens MD Unavailable [phone] Encounter Details Date Type Department Care Team (Late st Contact Info) Description 05/16/2025 Results Follow-Up [facility] Hematology Oncology [address] [place] [phone] Prince Owens MD [address] [place], [place] [phone] COMPREHENSIVE METABOLIC PANEL WITH GFR, LACTATE DEHYDROGENASE (LDH), SERUM, CBC (H/H, RBC, INDICES,WBC, PLT) Social History Tobacco Use Types Packs/Day Years [...] Encounter Note - Prince Owens MD - 05/16/2025 5:28 PM EDT Results normal/stable. I have notified the patient via [employer]. documented in this encounter Plan of Treatment Upcoming Encounters Date Type Department Care Team (Late st Contact Info) Description 07/19/2025 9:00 AM EDT Office Visit [facility] Hematology/Oncology [address] [place] [phone] Prince Owens MD [address] [place] [address] R/S from 8- due to mother passing away 11/18/2025 2:00 PM EST Office Visit [facility] Dermatology [address] [place] [phone] Iván Guajardo MD [address] [place] [address] Return in about 1 year (around 11/18/2025). documented as of this encounter Visit Diagnoses Not on filedocumented in this encounter Care Teams Assistant Director Of Security Relationship Specialty Start Date End Date Manoj Agudelo I [place] [address] [place] [phone] PCP - General Family Medicine 02/05/18 Prince Owens MD [address] [place] [phone] Primary Hem Onc Provider Hematology/Oncology 04/18/25 documented as of this encounter
--- OUTSIDE RECORDS SUMMARY | 2025-07-08 14:32 | XMS_ITS | Encounter Summary ---
Author Organization [facility] Address [address] [place] [address] Care Team Providers Care Cavalry Officer Name Role Phone Manoj Agudelo I Primary Care Provider [phone] Prince Owens MD Unavailable [phone] Encounter Details Date Type Department Care Team (Late Contact Info) Description 08/18/2020 Orders Only [facility] Hematology/Oncology [address] [phone] Prince Owens MD [address] [place] [address] Social History Tobacco Use Types Packs/Day Years Used Date Smoking Tobacco: Never Cigarettes Smokeless Tobacco: Never Sex and Gender Information Value Date Recorded Sex Assigned at Not on file Legal Sex Male 10:51 PM EDT Gender Identity Not on file Sexual Orientation Not on file documented as of this encounter Progress Notes * Prince Owens MD - 08/18/2020 10:38 AM EDT Best hemoglobin you have had in a long time. documented in this encounter Plan of Treatment Upcoming Encounters Date Type Department Care Team (Late st Contact Info) Description 07/19/2025 9:00 AM EDT Office Visit [facility] Hematology/Oncology [address] [place] [phone] Prince Owens MD 5 [place] [address] R/S from 8-28 due to mother passing away 11/18/2025 2:00 PM EST Office Visit [facility] Dermatology [address] [place] [phone] Iván Guajardo MD [address] [place] [address] Return in about 1 year (around 11/18/2025). documented as of this encounter Procedures * Due to [facility] law, this organization might not be sharing negative HIV tests. Procedure Name Priority Date/Time Associated Diagnosis Comments CBC INCLUDES DIFFERENTIAL AND PLATELET COUNT Routine 08/18/2020 10:38 AM EDT Acquired hemolytic anemia LACTATE DEHYDROGENASE (LDH), SERUM Routine 08/18/2020 10:38 AM EDT Acquired hemolytic anemia COMPREHENSIVE METABOLIC PANEL WITH GFR Routine 08/18/2020 10:38 AM EDT Acquired hemolytic anemia documented in this encounter Results * Due to [place] [employer] law, this organization might not be sharing negative HIV tests. * (ABNORMAL) CBC INCLUDES DIFFERENTIAL AND PLATELET COUNT (08/18/2020 10:38 AM EDT) WBC 5.7 3.8 - 10.8 Thousand/u L [facility] RBC 3.24(L) 4.20 - 5.80 Million/uL [facility] Hemoglobin 11.0(L) 13.2 - 17.1 g/dL [facility] Hematocrit 32.1(L) 38.5 - 50.0 % [facility] MCV 99.1 80.0 - 100.0 fL [facility] MCH 34.0(H) 27.0 - 33.0 pg [facility] MCHC 34.3 32.0 - 36.0 g/dL [facility] RDW 12.8 11.0 - 15.0 % [facility] PLT 270 140 - 400 Thousand/u L [facility] MPV 10.2 7.5 - 12.5 fL [facility] Neutrophils # 2822 1500 - 7800 cells/uL [facility] Lymphocytes # 2257 850 - 3900 cells/uL [facility] Monocytes # 399 200 - 950 cells/uL [facility] Eosinophils # 160 15 - 500 cells/uL [facility] Basophils # 63 0 - 200 cells/uL [facility] Neutrophils % 49.5 % [facility] Lymphocytes % 39.6 % [facility] Monocytes % 7.0 % [facility] Eosinophils % 2.8 % [facility] Basophils % 1.1 % [facility] 08/18/2020 10:3 8 AM EDT 08/18/2020 9:37 PM EDT Narrative Resulting Agency Comment [id number] Prince Owens MD LAB SAME DAY RESULT Final Result Performing Organization Address [facility] Co de Phone Number [facility] [address] [place] [address] * LACTATE DEHYDROGENASE (LDH), SERUM (08/18/2020 10:38 AM EDT) Lactate dehydrogenase 193 120 - 250 U/L [facility] 08/18/2020 10:3 8 AM EDT 08/18/2020 9:37 PM EDT Narrative Resulting Agency Comment [id number] Prince Owens MD LABORATORY Final Resu lt Performing Organization Address [facility] de Phone Number [facility] [address] [place] [phone] * (ABNORMAL) COMPREHENSIVE METABOLIC PANEL WITH GFR (08/18/2020 10:38 AM EDT) Glucose 100(H) 65 - 99 mg/dL [facility] Comment: Fasting reference interval For someone without known diabetes, a glucose value between 100 and 125 mg/dL is consistent with prediabetes and should be confirmed with a follow-up test. Urea Nitrogen Blood (BUN) 18 7 - 25 mg/dL [facility] Creatinine 1.11 0.70 - 1.25 mg/dL [facility] Comment: For patients >49 years of age, the reference limit for Creatinine is approximately 13% higher for people identified as -Namibian. EGFR 72 > OR = 60 mL/min/1 .73m2 [facility] GFR () 83 > OR = 60 mL/min/1 .73m2 [facility] BUN/Creatinine Ratio NOT APPLICABLE 6 - 22 (calc) [facility] Sodium 137 135 - 146 mmol/L [facility] Potassium 4.4 3.5 - 5.3 mmol/L [facility] Chloride 102 98 - 110 mmol/L [facility] Carbon dioxide 22 20 - 32 mmol/L [facility] Calcium [...] 20 9 - 46 U/L [facility] 08/18/2020 10:3 8 AM EDT 08/18/2020 9:37 PM EDT Narrative [facility] - 08/19/2020 2:40 AM EDT Please note that this estimated [...] with more precise needs for GFR calculation. us Prince Owens MD LABORATORY Final Resu lt Performing Organization Address City/State/[facility] Co de Phone Number [facility] [address] [place] [address] documented in this encounter Visit Diagnoses Diagnosis Acquired hemolytic anemia (HCC) Acquired hemolytic anemia, unspecified documented in this encounter Care Teams Cavalry Officer Relationship Specialty Start Date End Date Manoj Agudelo I [address] [phone] PCP - General Family Medicine 02/05/18 Prince Owens MD [address] [place] [address] Primary Hem Onc Provider Hematology/Oncology 04/18/25 documented as of this encounter
--- OUTSIDE RECORDS SUMMARY | 2025-07-08 14:32 | XMS_ITS | Encounter Summary ---
Author Organization [facility] Address [address] [place] [address] Care Team Providers Care Head Of Sales And Marketing Name Role Phone RachelleaixachristianeJohncorywalter Carrion Primary Care Provider [phone]- [phone] Prince Owens MD Unavailable [phone] Encounter Details Date Type Department Care Team (Late Contact Info) Description 11/24/2018 Orders Only [facility] Hematology/Oncology [address] [phone] Evangelina Alanis, RN [address] [place] [address] Social History Tobacco Use Types Packs/Day Years [...] Office Visit [facility] Hematology/Oncology [address] [place] [phone] Prince Owens MD [address] [place] [address] R/S from 06-30 due to mother passing away 11/18/2025 2:00 PM EST Office Visit [facility] Dermatology [address] [place] [phone] Iván Guajardo MD [address] [place] [phone] Return in about 1 year (around 11/18/2025). documented as of this encounter Procedures * Due to [employer] law, this organization might not be sharing negative HIV tests. Procedure Name Priority Date/Time Associated Diagnosis Comments CBC INCLUDES DIFFERENTIAL AND PLATELET COUNT Routine 11/24/2018 3:56 PM EST Acquired hemolytic anemia LACTATE DEHYDROGENASE (LDH), SERUM Routine 11/24/2018 3:56 PM EST Acquired hemolytic anemia HEPATIC FUNCTION PANEL (ALT,AST,ALK PH,BILI'S,TP,ALB) Routine 11/24/2018 3:56 PM EST Acquired hemolytic anemia documented in this encounter Results * Due to [employer] law, this organization might not be sharing negative HIV tests. * (ABNORMAL) HEPATIC FUNCTION PANEL (ALT,AST,ALK PH,BILI'S,TP,ALB) (11/24/2018 3:56 PM EST) Protein Total (Serum) 7.2 6.1 - 8.1 g/dL [facility] Albumin 4.7 3.6 - 5.1 g/dL [facility] Globulin 2.5 1.9 - 3.7 g/dL (calc) [facility] Albumin/Globulin 1.9 1.0 - 2.5 (calc) [facility] Bilirubin Total 4.1(H) 0.2 - 1.2 mg/dL [facility] Bilirubin Direct 0.8(H) < OR = 0.2 mg/dL [facility] Bilirubin Indirect 3.3(H) 0.2 - 1.2 mg/dL (calc) [facility] Alkaline phosphatase 72 40 - 115 U/L [facility] AST (SGOT) 30 10 - 35 U/L [facility] ALT (SGPT) 57(H) 9 - 46 U/L [facility] 11/24/2018 3:56 PM EST 11/25/2018 12:49 AM EST Narrative Resulting Agency Comment [id number] Prince Owens MD LABORATORY Final Resu lt [facility] [address] [place] [address] * LACTATE DEHYDROGENASE (LDH), SERUM (11/24/2018 3:56 PM EST) Pathologist [facility] Lactate dehydrogenase 233 120 - 250 U/L [facility] 11/24/2018 3:56 PM EST 11/25/2018 12:49 AM EST Narrative Resulting Agency Comment [id number] Prince Owens MD LABORATORY Final Resu lt Performing Organization Address City/[facility]/ZIP Co de Phone Number [facility] [address] [place] [address] * (ABNORMAL) CBC INCLUDES DIFFERENTIAL AND PLATELET COUNT (11/24/2018 3:56 PM EST) Pathologist [facility] WBC 5.2 3.8 - 10.8 Thousand/u L [facility] RBC 2.47(L) 4.20 - 5.80 Million/uL [facility] Hemoglobin 7.9(L) 13.2 - 17.1 g/dL [facility] Hematocrit 23.9(L) 38.5 - 50.0 % [facility] MCV 96.8 80.0 - 100.0 fL [facility] MCH 32.0 27.0 - 33.0 pg [facility] MCHC 33.1 32.0 - 36.0 g/dL [facility] RDW 13.2 11.0 - 15.0 % [facility] PLT 236 140 - 400 Thousand/u L [facility] MPV 9.9 7.5 - 12.5 fL [facility] Neutrophils # 2480 1500 - 7800 cells/uL [facility] Lymphocytes # 2080 850 - 3900 cells/uL [facility] Monocytes # 458 200 - 950 cells/uL [facility] Eosinophils # 151 15 - 500 cells/uL [facility] Basophils # 31 0 - 200 cells/uL [facility] Neutrophils % 47.7 % [facility] Lymphocytes % 40.0 % [facility] Monocytes % 8.8 % [facility] Eosinophils % 2.9 % [facility] Basophils % 0.6 % [facility] 11/24/2018 3:56 PM EST 11/25/2018 12:49 AM EST Narrative Resulting Agency Comment [id number] Prince Owens MD LAB SAME DAY RESULT Final Result [facility] [address] [place] [address] documented in this encounter Visit Diagnoses Diagnosis Acquired hemolytic anemia (HCC) Acquired hemolytic anemia, unspecified documented in this encounter Care Teams Head Of Sales And Marketing Relationship Specialty Start Date End Date Manoj Agudelo I [facility] [address] [place] [address] PCP - General Family Medicine 02/05/18 Prince Owens MD [address] [place] [address] Primary Hem Onc Provider Hematology/Oncology 04/18/25 documented as of this encounter
--- OUTSIDE RECORDS SUMMARY | 2025-07-08 14:32 | XMS_ITS | Encounter Summary ---
Author Organization [facility] Address [address] [place] [address] Care Team Providers Care Public Interviewer Name Role Phone Manoj Agudelo I Primary Care Provider [phone] Prince Owens MD Unavailable [phone] Encounter Details Date Type Department Care Team (Late st Contact Info) Description 05/05/2025 Results Follow-Up [facility] Hematology Oncology [address] [place] [address] Prince Owens MD [address] [place] [address] CBC (H/H, RBC, INDICES,WBC, PLT), COMPREHENSIVE METABOLIC PANEL WITH GFR, LACTATE DEHYDROGENASE (LDH), SERUM Social History Tobacco Use Types Packs/Day Years [...] Encounter Note - Prince Owens MD - 05/05/2025 7:03 PM EDT Results normal/stable. I have notified the patient via [employer]. * Result Encounter Note - Prince Owens MD - 05/05/2025 9:24 AM EDT Results normal/stable. I have notified the patient via [employer]. documented in this encounter Plan of Treatment Upcoming Encounters Date Type Department Care Team (Late st Contact Info) Description 07/19/2025 9:00 AM EDT Office Visit [facility] Hematology/Oncology [address] [place] [address] Prince Owens MD [address] [place] [address] R/S from 8-28 due to mother passing away 11/18/2025 2:00 PM EST Office Visit [facility] Dermatology [address] [place] [address] Iván Guajardo MD [address] [place] [address] Return in about 1 year (around 11/18/2025). documented as of this encounter Visit Diagnoses Not on filedocumented in this encounter Care Teams Public Interviewer Relationship Specialty Start Date End Date Manoj Agudelo I [place] [address] [place] [address] PCP - General Family Medicine 02/05/18 Prince Owens MD [address] [place] [address] Primary Hem Onc Provider Hematology/Oncology 04/18/25 documented as of this encounter
--- OUTSIDE RECORDS SUMMARY | 2025-07-08 14:33 | XMS_ITS | Encounter Summary ---
Author Organization [facility] Address [address] [place] [address] Care Team Providers Care Staff Air Defense Officer Name Role Phone Manoj Augdelo I Primary Care Provider [phone] Prince Owens MD Unavailable [phone] Encounter Details Date Type Department Care Team (Late Contact Info) Description 10/02/2019 Orders Only [facility] Hematology/Oncology [address] [phone] Prince Owens MD [address] [place] [address] Social History Tobacco Use Types Packs/Day Years [...] EDT Office Visit [facility] Hematology/Oncology [address] [place] [phone] Prince Owens MD [address] [place] [address] R/S from 8-28 due to mother passing away 11/18/2025 2:00 PM EST Office Visit [facility] Dermatology [address] [place] [phone] Iván Guajardo MD [address] [place] [address] Return in about 1 year (around 11/18/2025). documented as of this encounter Procedures * Due to [facility] law, this organization might not be sharing negative HIV tests. Procedure Name Priority Date/Time Associated Diagnosis Comments CBC INCLUDES DIFFERENTIAL AND PLATELET COUNT Routine 10/02/2019 10:26 AM EST Acquired hemolytic anemia LACTATE DEHYDROGENASE (LDH), SERUM Routine 10/02/2019 10:26 AM EST Acquired hemolytic anemia VENIPUNCTURE Routine 10/02/2019 10:26 AM EST Acquired hemolytic anemia documented in this encounter Results * Due to [facility] law, this organization might not be sharing negative HIV tests. * (ABNORMAL) CBC INCLUDES DIFFERENTIAL AND PLATELET COUNT (10/02/2019 10:26 AM EST) WBC 6.5 3.8 - 10.8 Thousand/u L [facility] RBC 3.04(L) 4.20 - 5.80 Million/uL [facility] Hemoglobin 10.2(L) 13.2 - 17.1 g/dL [facility] Hematocrit 30.5(L) 38.5 - 50.0 % [facility] MCV 100.3(H) 80.0 - 100.0 fL [facility] MCH 33.6(H) 27.0 - 33.0 pg [facility] MCHC 33.4 32.0 - 36.0 g/dL [facility] RDW 12.8 11.0 - 15.0 % [facility] PLT 230 140 - 400 Thousand/u L [facility] MPV 9.7 7.5 - 12.5 fL [facility] Neutrophils # 3341 1500 - 7800 cells/uL [facility] Lymphocytes # 2379 850 - 3900 cells/uL [facility] Monocytes # 481 200 - 950 cells/uL [facility] Eosinophils # 247 15 - 500 cells/uL [facility] Basophils # 52 0 - 200 cells/uL [facility] Neutrophils % 51.4 % [facility] Lymphocytes % 36.6 % [facility] Monocytes % 7.4 % [facility] Eosinophils % 3.8 % [facility] Basophils % 0.8 % [facility] 10/02/2019 10:2 6 AM EST 10/02/2019 11:04 PM EST Narrative Resulting Agency Comment [id number] us Prince Owens MD LAB SAME DAY RESULT Final Result Performing Organization Address [facility] Co de Phone Number [facility] [address] [place] [address] * LACTATE DEHYDROGENASE (LDH), SERUM (10/02/2019 10:26 AM EST) Lactate dehydrogenase 194 120 - 250 U/L [facility] 10/02/2019 10:2 6 AM EST 10/02/2019 11:04 PM EST Narrative Resulting Agency Comment [id number] Prince Owens MD LABORATORY Final Resu lt Performing Organization Address [facility] de Phone Number [facility] [address] [place] [address] * (ABNORMAL) BILIRUBIN, TOTAL, SERUM (10/02/2019 10:26 AM EST) Bilirubin Total 2.8(H) 0.2 - 1.2 mg/dL [facility] 10/02/2019 10:2 6 AM EST 10/02/2019 11:04 PM EST Narrative Resulting Agency Comment [id number] Prince Owens MD LAB SAME DAY RESULT Final Result Performing Organization Address [facility] de Phone Number [facility] [address] [place] [address] documented in this encounter Visit Diagnoses Diagnosis Acquired hemolytic anemia (HCC) Acquired hemolytic anemia, unspecified documented in this encounter Care Teams Staff Air Defense Officer Relationship Specialty Start Date End Date Manoj Agudelo I [address] [phone] PCP - General Family Medicine 02/05/18 Prince Owens MD [address] [place] [address] Primary Hem Onc Provider Hematology/Oncology 04/18/25 documented as of this encounter
--- OUTSIDE RECORDS SUMMARY | 2025-07-08 14:33 | XMS_ITS | Encounter Summary ---
Author Organization [facility] Address [address] [place] [address] Care Team Providers Care Cooling Tower Technician Name Role Phone Manoj Agudelo I Primary Care Provider [phone]- [phone] Prince Owens MD Unavailable [phone] Encounter Details Date Type Department Care Team ([facility] Contact Info) Description 05/04/2025 Orders Only [facility] Hematology/Oncology [address] [place] [phone] Prince Owens MD [address] [place] [address] Social History Tobacco Use Types Packs/Day Years [...] Upcoming Encounters Date Type Department Care Team ([facility] Contact Info) Description 07/19/2025 9:00 AM EDT Office Visit [facility] Hematology/Oncology [address] [place] [phone] Prince Owens MD [address] [place] [address] R/S from 8-28 due to mother passing away 11/18/2025 2:00 PM EST Office Visit [facility] Dermatology [address] [place] [phone] Iván Guajardo MD [address] [place] [address] Return in about 1 year (around 11/18/2025). documented as of this encounter Procedures * Due to [employer] law, this organization might not be sharing negative HIV tests. Procedure Name Priority Date/Time Associated Diagnosis Comments CBC (H/H, RBC, INDICES,WBC, PLT) Routine 05/04/2025 10:47 AM EDT Acquired hemolytic anemia (HCC) LACTATE DEHYDROGENASE (LDH), SERUM Routine 05/04/2025 10:47 AM EDT Acquired hemolytic anemia (HCC) COMPREHENSIVE METABOLIC PANEL WITH GFR Routine 05/04/2025 10:47 AM EDT Acquired hemolytic anemia (HCC) documented in this encounter Results * Due to [place] [employer] law, this organization might not be sharing negative HIV tests. * LACTATE DEHYDROGENASE (LDH), SERUM (05/04/2025 10:47 AM EDT) Lactate dehydrogenase 187 120 - 250 U/L [facility] 05/04/2025 10:4 7 AM EDT 05/04/2025 11:26 PM EDT Narrative Resulting Agency Comment [id number] us Prince Owens MD LABORATORY Final Resu lt [facility] [address] [place] [address] * (ABNORMAL) COMPREHENSIVE METABOLIC PANEL WITH GFR (05/04/2025 10:47 AM EDT) Glucose 179(H) 65 - 99 mg/dL [facility] Comment: Fasting reference interval For someone without known diabetes, a glucose value >125 mg/dL indicates that they may have diabetes and this should be confirmed with a follow-up test. Urea Nitrogen Blood (BUN) 20 7 - 25 mg/dL [facility] Creatinine 0.94 0.70 - 1.35 mg/dL [facility] EGFR 91 > OR = 60 mL/min/1. 73m2 [facility] [...] - 2.5 (calc) [facility] Bilirubin Total 2.1(H) 0.2 - 1.2 mg/dL [facility] Alkaline phosphatase 56 35 - 144 U/L [facility] AST (SGOT) 11 10 - 35 U/L [facility] ALT (SGPT) 20 9 - 46 U/L [facility] 05/04/2025 10:4 7 AM EDT 05/04/2025 11:26 PM EDT Narrative [facility] - 05/05/2025 9:57 AM EDT Please note that this estimated [...] needs for GFR calculation. Resulting Agency Comment [id number] us Prince Owens MD LABORATORY Final Resu lt [facility] [address] [place] [address] * (ABNORMAL) CBC (H/H, RBC, INDICES,WBC, PLT) (05/04/2025 10:47 AM EDT) WBC 7.3 3.8 - 10.8 Thousand/ uL [facility] RBC 3.32(L) 4.20 - 5.80 Million/u L [facility] Hemoglobin 11.2(L) 13.2 - 17.1 g/dL [facility] Hematocrit 35.0(L) 38.5 - 50.0 % [facility] MCV 105.4(H) 80.0 - 100.0 fL [facility] MCH [...] [facility] PLT 232 140 - 400 Thousand/ uL [facility] MPV 10.1 7.5 - 12.5 fL [facility] 05/04/2025 10:4 7 AM EDT 05/04/2025 11:26 PM EDT Narrative Resulting Agency Comment [id number] us Prince Owens MD LAB SAME DAY RESULT Final Result Performing Organization Address City/State/[facility] Co de Phone Number [facility] [address] [place] [address] documented in this encounter Visit Diagnoses Diagnosis Acquired hemolytic anemia (HCC) Acquired hemolytic anemia, unspecified documented in this encounter Care Teams Cooling Tower Technician Relationship Specialty Start Date End Date Manoj Agudelo I [address] [phone] PCP - General Family Medicine 02/05/18 Prince Owens MD [address] [place] [address] Primary Hem Onc Provider Hematology/Oncology 04/18/25 documented as of this encounter
--- OUTSIDE RECORDS SUMMARY | 2025-07-08 14:33 | XMS_ITS | Encounter Summary ---
Author Organization [facility] Address [address] [place] [address] Care Team Providers Care Prevention Rn Name Role Phone Manoj Agudelo I Primary Care Provider [phone] Prince Owens MD Unavailable [phone] Encounter Details Date Type Department Care Team (Late Contact Info) Description 06/29/2019 Orders Only [facility] Hematology/Oncology [address] [phone] Prince Owens MD [address] [place] [address] Social History Tobacco Use Types Packs/Day Years [...] EDT Office Visit [facility] Hematology/Oncology [address] [place] [address] [phone] Prince Owens MD [address] [place] [address] R/S from 8-28 due to mother passing away 11/18/2025 2:00 PM EST Office Visit [facility] Dermatology [address] [place] [phone] Iván Guajardo MD [address] [place] [address] Return in about 1 year (around 11/18/2025). documented as of this encounter Procedures * Due to [facility] law, this organization might not be sharing negative HIV tests. Procedure Name Priority Date/Time Associated Diagnosis Comments CBC INCLUDES DIFFERENTIAL AND PLATELET COUNT Routine 06/29/2019 3:20 PM EDT Acquired hemolytic anemia LACTATE DEHYDROGENASE (LDH), SERUM Routine 06/29/2019 3:20 PM EDT Acquired hemolytic anemia COMPREHENSIVE METABOLIC PANEL WITH GFR Routine 06/29/2019 3:20 PM EDT Acquired hemolytic anemia documented in this encounter Results * Due to [employer] law, this organization might not be sharing negative HIV tests. * (ABNORMAL) COMPREHENSIVE METABOLIC PANEL WITH GFR (06/29/2019 3:20 PM EDT) Glucose 175(H) 65 - 99 mg/dL [facility] Comment: [...] approximately 13% higher for people identified as -[place]ian. EGFR 88 > OR = 60 mL/min/1 .73m2 [facility] GFR () 102 > OR = 60 mL/min/1 .73m2 [facility] [...] 1.2 mg/dL [facility] Alkaline phosphatase 55 40 - 115 U/L [facility] AST (SGOT) 17 10 - 35 U/L [facility] ALT (SGPT) 18 9 - 46 U/L [facility] 06/29/2019 3:20 PM EDT 06/30/2019 12:43 AM EDT Narrative [facility] - 06/30/2019 6:31 AM EDT Please note that this estimated [...] LABORATORY Final Resu lt [facility] [address] [place] [address] * LACTATE DEHYDROGENASE (LDH), SERUM (06/29/2019 3:20 PM EDT) Lactate dehydrogenase 188 120 - 250 U/L [facility] 06/29/2019 3:20 PM EDT 06/30/2019 12:43 AM EDT Narrative Resulting Agency Comment [id number] Prince Owens MD LABORATORY Final Resu lt [facility] [address] [place] [address] * (ABNORMAL) CBC INCLUDES DIFFERENTIAL AND PLATELET COUNT (06/29/2019 3:20 PM EDT) WBC 5.8 3.8 - 10.8 Thousand/u L [facility] RBC 3.02(L) 4.20 - 5.80 Million/uL [facility] Hemoglobin 10.5(L) 13.2 - 17.1 g/dL [facility] Hematocrit 29.4(L) 38.5 - 50.0 % [facility] MCV 97.4 80.0 - 100.0 fL [facility] MCH 34.8(H) 27.0 - 33.0 pg [facility] MCHC 35.7 32.0 - 36.0 g/dL [facility] RDW 12.6 11.0 - 15.0 % [facility] PLT 208 140 - 400 Thousand/u L [facility] MPV 10.3 7.5 - 12.5 fL [facility] Neutrophils # 2912 1500 - 7800 cells/uL [facility] Lymphocytes # 2442 850 - 3900 cells/uL [facility] Monocytes # 278 200 - 950 cells/uL [facility] Eosinophils # 139 15 - 500 cells/uL [facility] Basophils # 29 0 - 200 cells/uL [facility] Neutrophils % 50.2 % [facility] Lymphocytes % 42.1 % [facility] Monocytes % 4.8 % [facility] Eosinophils % 2.4 % [facility] Basophils % 0.5 % [facility] 06/29/2019 3:20 PM EDT 06/30/2019 12:43 AM EDT Narrative Resulting Agency Comment [id number] us Prince Owens MD LAB SAME DAY RESULT Final Result Performing Organization Address City/State/[facility] Co de Phone Number [facility] [address] [place] [address] documented in this encounter Visit Diagnoses Diagnosis Acquired hemolytic anemia (HCC) Acquired hemolytic anemia, unspecified documented in this encounter Care Teams Prevention Rn Relationship Specialty Start Date End Date Manoj Agudelo I [address] [phone] PCP - General Family Medicine 02/05/18 Prince Owens MD [address] [place] [address] Primary Hem Onc Provider Hematology/Oncology 04/18/25 documented as of this encounter
--- OUTSIDE RECORDS SUMMARY | 2025-07-08 14:33 | XMS_ITS | Encounter Summary ---
Author Organization [facility] Address [address] [place] [address] Care Team Providers Care Skating Rink Ice Maker Name Role Phone Manoj Agudelo MD Primary Care Provider Encounter Details Date Type Department Care Team (Late st Contact Info) Description 02/18/2022 Telephone [facility] Patient Access Center [address] [place] [address] Telephone Intake, Staff Social History Tobacco Use Types Packs/Day Years Used Date Smoking Tobacco: Former Cigarettes Q uit: 02/17/2006 Smokeless Tobacco: Never Comments:: Alcohol Use Standard Drinks/Week Comments Not Currently 0 (1 standard drink = 0.6 oz pur e alcohol) Sex and Gender Information Value Date Recorded Sex Assigned at Male 02/18/2022 8:29 AM EDT Legal Sex Male 2:43 AM EDT Gender Identity Male 02/18/2022 8:29 AM EDT Sexual Orientation Straight 02/18/2022 8: 29 AM EDT documented as of this encounter Miscellaneous Notes * Telephone Encounter - Cuca Mejia - 02/18/2022 9:17 AM EDT pts is calling, pt is currently admitted into [facility]. She is asking if she needs to cxl the ptsupcoming ECHO. Please call Lidia muse at [phone]. Pt stating ok to leave a detail voicemail. documented in this encounter Plan of Treatment Upcoming Encounters Date Type Department Care Team (Late Contact Info) Description 12/05/2025 8:30 AM EST Appointment [facility] Pulmonary Function Lab [address] [place] [address] Speedy Denise MD [address] [place] [address] 12/05/2025 9:40 AM EST Follow-Up [facility] Lung and Allergy Center [address] [place] [address] Tread Tuber Machine Operator: Speedy Ha MD [address] [place] [address] documented as of this encounter Visit Diagnoses Not on filedocumented in this encounter Additional Health Concerns Infection Onset Date Last Indicated Resolved Time COVID-19 - Confirmed infection 07/19/2023 07/24/2023 08/23/2023 10:33 PM EDT R/O Respiratory Virus Infection 07/24/2023 07/24/2023 10:06 PM EDT R/O Influenza 07/24/2023 07/24/2023 07/24/2023 10: 06 PM EDT COVID-19 - Suspected infection 07/24/2023 07/24/2023 07/24/2023 10:06 PM EDT documented as of this encounter Care Teams Skating Rink Ice Maker Relationship Specialty Start Date End Date Manoj Agudelo MD [address] [place] [phone] PCP - General 05/22/17 documented as of this encounter
--- OUTSIDE RECORDS SUMMARY | 2025-07-08 14:33 | XMS_ITS | Encounter Summary ---
Author Organization [facility] Address [address] [place] [address] Care Team Providers Care Supervisor Drying Name Role Phone SantinochristianeManoj I Primary Care Provider [phone] Prince Owens MD Unavailable [phone] Encounter Details Date Type Department Care Team (Late Contact Info) Description 02/11/2019 Orders Only [facility] Hematology/Oncology [address] [phone] Prince Owens MD [address] [place] [address] Social History Tobacco Use Types Packs/Day Years Used Date Smoking Tobacco: Never Cigarettes Smokeless Tobacco: Never Sex and Gender Information Value Date Recorded Sex Assigned at Not on file Legal Sex Male 10:51 PM EDT Gender Identity Not on file Sexual Orientation Not on file documented as of this encounter Progress Notes * Prince Owens MD - 02/11/2019 5:48 PM EDT Labs continue to improve!! Your hemolytic episode has passed. I would check again in about 2 weeks or sooner if you feel your urine is getting dark again. documented in this encounter Plan of Treatment Upcoming Encounters Date Type Department Care Team (Late st Contact Info) Description 07/19/2025 9:00 AM EDT Office Visit [facility] Hematology/Oncology [address] [place] [phone] Prince Owens MD [address] [place] [address] R/S from 8-28 due to mother passing away 11/18/2025 2:00 PM EST Office Visit [facility] Dermatology [address] [place] [phone] Iván Guajardo MD [address] [place] [address] Return in about 1 year (around 11/18/2025). documented as of this encounter Procedures * Due to [facility] law, this organization might not be sharing negative HIV tests. Procedure Name Priority Date/Time Associated Diagnosis Comments CBC INCLUDES DIFFERENTIAL AND PLATELET COUNT STAT (All results called to provider) 02/11/2019 8:18 AM EDT Acquired hemolytic anemia documented in this encounter Results * Due to [facility] law, this organization might not be sharing negative HIV tests. * (ABNORMAL) CBC INCLUDES DIFFERENTIAL AND PLATELET COUNT (02/11/2019 8:18 AM EDT) WBC 6.9 3.8 - 10.8 Thousand/ uL [facility] RBC 2.49(L) 4.20 - 5.80 Million/u L [facility] Hemoglobin 7.7(L) 13.2 - 17.1 g/dL [facility] Hematocrit 24.9(L) 38.5 - 50.0 % [facility] MCV 100.0 80.0 - 100.0 fL [facility] MCH 30.9 27.0 - 33.0 pg [facility] MCHC 30.9(L) 32.0 - 36.0 g/dL [facility] RDW 14.8 11.0 - 15.0 % [facility] PLT 237 140 - 400 Thousand/ uL [facility] MPV 9.0 7.5 - 12.5 fL [facility] Neutrophils # 3450 1500 - 7800 cells/uL [facility] Lymphocytes # 2795 850 - 3900 cells/uL [facility] Monocytes # 393 200 - 950 cells/uL [facility] Eosinophils # 242 15 - 500 cells/uL [facility] Basophils # 21 0 - 200 cells/uL [facility] Neutrophils % 50.0 % [facility] Lymphocytes % 40.5 % [facility] Monocytes % 5.7 % [facility] Eosinophils % 3.5 % [facility] Basophils % 0.3 % [facility] Service comment 01 SEE NOTE [facility] Comment: The smear was manually reviewed and the instrument differential results have been confirmed. The instrument differential has been reported. Slide review performed at [address] [place] [id number]. Instructor Modeling: Lulu [place] MD. 02/11/2019 8:18 AM EDT 02/11/2019 8:34 AM EDT Narrative Resulting Agency Comment [id number] us Prince Owens MD LAB SAME DAY RESULT Final Result Performing Organization Address City/State/RUST Co de Phone Number [facility] [address] [place] [address] documented in this encounter Visit Diagnoses Diagnosis Acquired hemolytic anemia (HCC) Acquired hemolytic anemia, unspecified documented in this encounter Care Teams Supervisor Drying Relationship Specialty Start Date End Date Manoj Agudelo I [address] [address] [place] [address] PCP - General Family Medicine 02/05/18 Prince Owens MD [address] [place] [address] Primary Hem Onc Provider Hematology/Oncology 04/18/25 documented as of this encounter
--- OUTSIDE RECORDS SUMMARY | 2025-07-08 14:33 | XMS_ITS | Encounter Summary ---
Author Organization [facility] Address [address] [place] [address] Care Team Providers Care Asbestos Siding Mechanic Name Role Phone Manoj Agudelo MD Primary Care Provider Reason for Visit * Reason Comments Med Refill Encounter Details Date Type Department Care Team (Late st Contact Info) Description 06/17/2022 Refill [facility] [address] [place] [address] Daljit Garcias MD [address] [facility] [place] [address] Social History Tobacco Use Types Packs/Day Years [...] AM EDT documented as of this encounter Plan of Treatment Upcoming Encounters Date Type Department Care Team (Late st Contact Info) Description 12/05/2025 8:30 AM EST Appointment [facility] Pulmonary Function Lab [address] [place] [address] Speedy Denise MD [address] [place] [address] 12/05/2025 9:40 AM EST Follow-Up [facility] [address] [place] [address] Broth Mixer: Speedy Ha MD [address] [place] [phone] documented as of this encounter Visit Diagnoses [...] documented as of this encounter Care Teams Asbestos Siding Mechanic Relationship Specialty Start Date End Date Manoj Agudelo MD [address] [place] [address] PCP - General 05/22/17 documented as of this encounter
--- OUTSIDE RECORDS SUMMARY | 2025-07-08 14:33 | XMS_ITS | Encounter Summary ---
Author Organization [facility] Address [address] [place] [address] Care Team Providers Care Winder Helper Name Role Phone Manoj Agudelo I Primary Care Provider [phone] Prince Owens MD Unavailable [phone] Encounter Details Date Type Department Care Team (Late Contact Info) Description 04/09/2019 Orders Only [facility] Hematology/Oncology [address] [phone] Prince Owens MD [address] [place] [address] Social History Tobacco Use Types Packs/Day Years [...] EDT Office Visit [facility] Hematology/Oncology [address] [place] [phone] Prince Owens MD [address] [place] [address] R/S from 8-28 due to mother passing away 11/18/2025 2:00 PM EST Office Visit [facility] Dermatology [address] [place] [phone] Iván Guajardo MD [address] [place] [address] Return in about 1 year (around 11/18/2025). documented as of this encounter Procedures * Due to [facility] law, this organization might not be sharing negative HIV tests. Procedure Name Priority Date/Time Associated Diagnosis Comments CBC INCLUDES DIFFERENTIAL AND PLATELET COUNT Routine 04/09/2019 6:18 PM EDT Acquired hemolytic anemia LACTATE DEHYDROGENASE (LDH), SERUM Routine 04/09/2019 6:18 PM EDT Acquired hemolytic anemia COMPREHENSIVE METABOLIC PANEL WITH GFR Routine 04/09/2019 6:18 PM EDT Acquired hemolytic anemia documented in this encounter Results * Due to [place] [employer] law, this organization might not be sharing negative HIV tests. * (ABNORMAL) COMPREHENSIVE METABOLIC PANEL WITH GFR (04/09/2019 6:18 PM EDT) Glucose 92 65 - 99 mg/dL [facility] Comment:Fasting reference in terval Urea Nitrogen Blood (BUN) 19 7 - 25 mg/dL [facility] Creatinine 1.02 0.70 - 1.33 mg/dL [facility] Comment: For patients >49 years of age, the reference limit for Creatinine is approximately 13% higher for people identified as -[place]oz[place]. EGFR 81 > OR = 60 mL/min/1 .73m2 [facility] GFR () 93 > OR = 60 mL/min/1 .73m2 [facility] [...] 1.2 mg/dL [facility] Alkaline phosphatase 52 40 - 115 U/L [facility] AST (SGOT) 16 10 - 35 U/L [facility] ALT (SGPT) 17 9 - 46 U/L [facility] 04/09/2019 6:18 PM EDT 04/10/2019 12:37 AM EDT Narrative [facility] - 04/10/2019 5:11 AM EDT Please note that this estimated [...] LABORATORY Final Resu lt Performing Organization Address [facility] Co de Phone Number [facility] [address] [phone] * LACTATE DEHYDROGENASE (LDH), SERUM (04/09/2019 6:18 PM EDT) Lactate dehydrogenase 185 120 - 250 U/L [facility] 04/09/2019 6:1 8 PM EDT 04/10/2019 12:37 AM EDT Narrative Resulting Agency Comment [id number] Prince Owens MD LABORATORY Final Resu lt Performing Organization Address [facility] de Phone Number [facility] [address] [place] [address] * (ABNORMAL) CBC INCLUDES DIFFERENTIAL AND PLATELET COUNT (04/09/2019 6:18 PM EDT) WBC 7.1 3.8 - 10.8 Thousand/u L [facility] [...] - 12.5 fL [facility] Neutrophils # 2876 1500 - 7800 cells/uL [facility] Lymphocytes # 3522 850 - 3900 cells/uL [facility] Monocytes # 454 200 - 950 cells/uL [facility] Eosinophils # 199 15 - 500 cells/uL [facility] Basophils # 50 0 - 200 cells/uL [facility] Neutrophils % 40.5 % [facility] Lymphocytes % 49.6 % [facility] Monocytes % 6.4 % [facility] Eosinophils % 2.8 % [facility] Basophils % 0.7 % [facility] 04/09/2019 6:18 PM EDT 04/10/2019 12:37 AM EDT Narrative Resulting Agency Comment [id number] us Prince Owens MD LAB SAME DAY RESULT Final Result [facility] [address] [place] [address] documented in this encounter Visit Diagnoses Diagnosis Acquired hemolytic anemia (HCC) Acquired hemolytic anemia, unspecified documented in this encounter Care Teams Winder Helper Relationship Specialty Start Date End Date Manoj Agudelo I [address] [address] [place] [address] PCP - General Family Medicine 02/05/18 Prince Owens MD [address] [place] [address] Primary Hem Onc Provider Hematology/Oncology 04/18/25 documented as of this encounter
--- OUTSIDE RECORDS SUMMARY | 2025-07-08 14:33 | XMS_ITS ---
Author Organization [facility] Address [address] [place] [address] Care Team Providers Care Bible Reader Name Role Phone Manoj Agudelo MD Primary Care Provider Active Problems Problem Noted Date Diagnosed Date Hypoxia 07/25/2023 History of pulmonary embolism 07/25/2023 Symptomatic anemia 07/24/2023 COVID-19 07/24/2023 Abnormal PFTs 07/09/2022 Pulmonary fibrosis 07/09/2022 Acute on chronic cholecystitis 04/20/2022 Urticaria 03/02/2022 Assessment & Plan (03/04/2022 1:49 PM EDT): On 03/01 (2 days after talc pleurodesis), Patient reports lip and finger swelling , finger web itchiness, elbow itchiness and a wheel 1x1 cm seen on the medial part of the left elbow. No shortness of breath , stridor, dysphagia, diarrhea, nausea, vomiting, BP And HR stable. Received benadryl IV prn And pepcid 2-mg IV bid for the potential allergic reaction. Other than talc, no new medication was started and patient denies eat or was in contact with any known allergen. - IV benadryl PRN - monitor symptoms - symptoms started again after morning lovenox injection. Hold lovenox Secondary spontaneous pneumothorax 02/16/2022 Assessment & Plan (02/22/2022 5:49 PM EDT): Asif Mccullough is a 61 y.o. male with significant past medical history of COVID-pneumonia complicated by pulmonary embolism and subsequent dependence on home oxygen who presented at this time to the hospital with a secondary spontaneous pneumothorax on the left side. He has failed to go on to waterseal multiple times. He continues to have residual left-sided pneumothorax and the first pigtail catheter appears to be lodged within the major fissure. In this clinical setting, we would suggest to proceed with insertion of a second pigtail catheter directly into the apex. Following adequate lung expansion, if he continues to fail going to waterseal, he should undergo chemical pleurodesis through both pigtail catheters. At this point in time, there is no role for surgical intervention. Thoracic surgery will continue to follow, in case he fails to respond to the above-mentioned treatment. Assessment & Plan (02/17/2022 1:41 AM EDT): With associate chest pain and shortness of breath. Patient with acute onset chest pain and shortness of breath and found to have large left-sided pneumothorax on chest x-ray, likely secondary due to post covid cystic changes and fibrosis. CT chest 2 weeks prior to admission shows bilateral upper lobe cystic change with fibrosis and bronchiolectasis. Chest tube was placed with improvement in shortness of breath and chest pain. -post chest tube CXR shows stability of pneumothorax. Chest tube placed to water seal with tidling shows air is being evacuated, further patient on facemask oxygen for SpO2 100% for nitrogen washout to accelerate pneumothorax resolution -consider intermittent CXR to evaluate for resolution of pneumothorax -continuous pulse ox -chest tube to water seal -face mask overnight for nitrogen washout -if develops shortness of breath consider chest tube to suction -hold home eloquis setting of chest tube placement -DuoNebs as needed Assessment & Plan (03/05/2022 10:18 AM EDT): With associate chest pain and shortness of breath. Patient with acute onset chest pain and shortness of breath and found to have large left-sided pneumothorax on chest x-ray, likely secondary due to cystic changes and fibrosis. L sided Chest tube was placed with improvement in shortness of breath and chest pain. CT chest in beginning of February shows is bilateral upper lobe cystic change with fibrosis and bronchiolectasis which are consequences post COVID pneumonia scarring and fibrosis. Chest tube was originally on water seal, however, had significant air leak and due to persistent size of pneumo, was switched to suction at -10 due to patient intolerance (pain in the chest). Repeat CXR 02/18 show increase PTX, noticed air leak in chest tube with exhalation, increased suction to -15 with resolved PTX however delevop PTX overnight again, improved after adjust chest tube position, however patient failed water seal and the lung is not able to remain expanded on suction. CT chest showed chest tube in the fissures, 2nd chest tube was placed, air leak still persists. Repeat CT chest 02/26 showed expansion of the left lung. Patient's air leak persists and had increase PTX on waterseal, after multiple discussion between pulm, thoracic surgery, and patient, decided to perform talc pleurodesis on 02/27. Patient tolerated pleurodesis well, and chest tube was placed on waterseal and then clamped. #1 chest tube removed on 03/03, #2 chest tube removed on 03/04. Repeat CT showed: Interval removal of left-sided pleural catheter is a small residual left hydropneumothorax. High attenuation in the pleural space in keeping with prior talc pleurodesis. Thoracic recommend no further management and follow up outpatient. -continuous pulse ox - repeat CT chest 03/04 after chest tube moved. - no further management per thoracic surgery. - trend O2 - DuoNebs as needed Pulmonary embolism 02/16/2022 Assessment & Plan (02/17/2022 1:43 AM EDT): Home med Eliquis 5 mg twice daily Had bilateral segmental and subsegmental pulmonary embolism in ~mid Oct 2021 without associated RH strain and bilateral DVt in the setting of prolonged critical care stay for COVID pneumonia -Last took Eliquis a.m. of admission -Hold home Eliquis in setting of chest tube placement Assessment & Plan (03/05/2022 10:30 AM EDT): Home med Eliquis 5 mg twice daily Had bilateral segmental and subsegmental pulmonary embolism without associated RH strain and bilateral DVt in the setting of prolonged critical care stay for COVID pneumonia from mid September to end Oct/early nov 2020. Last took Eliquis a.m. of admission -plan to restart home Eliquis Anxiety 02/16/2022 Assessment & Plan (02/16/2022 11:29 PM EDT): Home med: sertraline 75mg AM, propranolol 20mg AM, 10mg PM Has history of anxiety after his prolonged critical care stay, appears anxious on admission in the setting of shortness of breath due to pneumothorax -Continue home medications Assessment & Plan (02/16/2022 11:09 PM EDT): Home med: sertraline 75mg AM, propranolol 20mg AM, 10mg PM Has history of anxiety after his prolonged critical care stay, appears anxious on admission in the setting of shortness of breath due to pneumothorax -Continue home medications SOB (shortness of breath) 11/28/2017 HTN (hypertension) 11/11/2017 Assessment & Plan (11/11/2017 4:18 PM EST): 11/11/2017 Patient with HTN managed with lisinopril 10mg po qday. BP on admission stable, SBP 110-137. -continue lisinopril -monitor BP HLD (hyperlipidemia) 11/11/2017 Assessment & Plan (02/16/2022 11:25 PM EDT): Home med atorvastatin 10 mg nightly Continue home atorvastatin Assessment & Plan (02/16/2022 11:09 PM EDT): Home med atorvastatin 10 mg nightly Continue home atorvastatin Assessment & Plan (11/11/2017 4:18 PM EST): 11/11/2017 Patient with HLD managed with Lipitor 10mg po qday -continue Lipitor DM2 (diabetes mellitus, type 2) 11/11/2017 Assessment & Plan (02/16/2022 11:26 PM EDT): Home meds: Januvia 100 mg daily, glargine 33 units nightly -Patient reports has been getting low blood sugars on on glargine 33 with a fasting glucose of 79 this morning, likely means he may only require 20 to 25 units of glargine -He had previously been on as high as 45 units glargine 50 pound weight loss in the setting of extensive illness prolonged critical care stay Carb consistent diet LDSS with meals and nightly 10U lantus nightly Assessment & Plan (03/05/2022 10:19 AM EDT): Home meds: Januvia 100 mg daily, glargine 33 units nightly -Patient reports has been getting low blood sugars on on glargine 33 with a fasting glucose of 79 this morning, likely means he may only require 20 to 25 units of glargine -He had previously been on as high as 45 units glargine 50 pound weight loss in the setting of extensive illness prolonged critical care stay - liberalize to regular diet per dietitian - LDSS with meals and nightly - 6U lantus nightly Assessment & Plan (11/11/2017 4:23 PM EST): 11/11/2017 Patient with DM2 managed with Janumet 100-2000mg po qday -hold janumet -low ISS GERD (gastroesophageal reflux disease) 8 Assessment & Plan (02/17/2022 11:16 AM EDT): home med: famotidine 20mg BID - Continue home med Assessment & Plan (11/11/2017 4:23 PM EST): 11/11/2017 Patient with GERD managed with omeprazole 20mg po qday since 2006. GERD sx usually well controlled. Has never had an EGD. Reports having some heartburn last week due to being worried that his urine was dark, but no active signs of bleeding. Occult blood testing negative in ED. -continue omeprazole Hemolytic anemia 11/11/2017 Acquired hemolytic anemia 04/17/2016 Assessment & Plan (04/20/2022 3:48 AM EDT): H/H on arrival was 8.7 / 26.0. Total bilirubin 4.1 on arrival, baseline T.bili 4-7. Discussions pending about rituximab infusion, no plans for initiation as of yet. - Monitor H/H - Type and screen pre-operatively Assessment & Plan (02/16/2022 11:29 PM EDT): Stable, Hb at baseline, Tbili near recent baseline. Developed subsequent to bladder cancer treatment. Per outpatient notes He has an interesting Sohail body study which shows that the direct test is negative but the induced test is elevated consistent with enzyme deficiencies, thalassemias, unstable hemoglobins exposure to toxins and postsplenectomy. Flow and taqueria negative/. -Hemoglobin at baseline which is between 8 and 11 g/dL -Patient reports no incidences of bleeding, melena or red stools -Potentially physiologic stress of pneumothorax respiratory failure may worsen hemolysis, that case steroids for transfusion and utility -No reason for transfusion or steroids currently Assessment & Plan (02/21/2022 9:47 AM EDT): Stable, Hb at baseline (8-11), Tbili near recent baseline. Per outpatient notes He has an interesting Sohail body study which shows that the direct test is negative but the induced test is elevated consistent with enzyme deficiencies, thalassemias, unstable hemoglobins exposure to toxins and postsplenectomy. Flow and taqueria negative/. patient had downtrending h/h initially, hemolysis workup did not show increasing hemolysis (baseline bili, LDH wnl, ret increased with appropriate responding). Haptoglobin 30s. -Hemoglobin at baseline which is between 8 and 11 g/dL -Patient reports no incidences of bleeding, melena or red stools -Potentially physiologic stress of pneumothorax respiratory failure may worsen hemolysis, that case steroids for transfusion and utility -No reason for transfusion or steroids currently Assessment & Plan (11/11/2017 4:29 PM EST): 11/11/2017 Patient with hx of hemolytic anemia in 2016 thought to be secondary to interferon, followed by Dr. Owens outpatient, now presenting with CASTELAN and jaundice, found to have anemia with Hgb of 5.9 (down from 10.2 on 07/2017). T bili elevated to 6. Patient with no acute signs of bleeding. Differential includes problems in production or destruction of RBCs. Retic count pending. DIC panel negative. Given prior history of hemolytic anemia, another episode of hemolytic anemia is likely. Patient has not been receiving BCG treatements any further. Causative factor may be possible URI (patient had chills, cough and sick contacts last week). -start prednisone 80mg po qday (1mg/kg) -H&H q12hr -transfuse for Hgb >7/21 or active signs of bleeding -f/u D bili, hapto, retic count, LDH, and direct taqueria test -DVT ppx vd boots Bladder cancer 03/21/2015 Assessment & Plan (02/16/2022 11:30 PM EDT): Not an acute issue. patient with a history of superficial bladder cancer treated with, BCG, interferon and Mitomycin-C. He has not had recurrence in the last 5 years. Denies hematuria at home, although does report urine is dark brown, which has been a chronic problem since hemolytic anemia diagnosis Assessment & Plan (02/16/2022 10:59 PM EDT): Not an acute issue. patient with a history of superficial bladder cancer treated with, BCG, interferon and Mitomycin-C. He has not had recurrence in the last 5 years. Denies hematuria at home, although does report urine is dark brown, which has been a chronic problem since hemolytic anemia diagnosis Assessment & Plan (11/11/2017 4:18 PM EST): 11/11/2017 Patient with hx of bladder cancer stage 0, followed by Dr. Mora, and finished treatment with BCG about 1 year ago. UA negative for hematuria. -not an active issue Bladder mass 07/21/2014 Incomplete emptying of bladder 07/21/2014 Bladder stones 07/21/2014 Hematuria 07/21/2014 Assessment & Plan (11/14/2017 7:28 AM EST): 11/14/2017 Current Treatment and Therapy Plans No current plan information found. Past Treatment and Therapy Plans Therapy Plan Orders Supplemental Plan Name Start Date Discontinue Date Treatment Medications Discontinue Reason Plan Provider ADULT ONCOLOGY CENTRAL [facility] 11/18/2017 10/14/2018 No medications scheduled. Therapy Complete Prince Owens MD Lifetime Dose Tracking * Chemical Lifetime Dose Automatic Entry Manual Entr y Fluoro Time 1.6 minutes 1.6 minutes 0 minutes TotalDLP 549 mGy 549 mGy 0 mGy [id number] 8.9 mSv 8.9 mSv 0 mSv CTDIvol Max 11.8 mGy 11.8 mGy 0 mGy CTDIvol Min 6.5 mGy 6.5 mGy 0 mGy Radiation - mGy 86.55 mGy 86.55 mGy 0 mGy
--- OUTSIDE RECORDS SUMMARY | 2025-07-08 14:33 | XMS_ITS | Encounter Summary ---
Author Organization [facility] Address [address] [place] [address] Care Team Providers Care Creative Manager Name Role Phone SantinochristianeManoj I Primary Care Provider [phone]- [phone] Prince Owens MD Unavailable [phone] Encounter Details Date Type Department Care Team (Late Contact Info) Description 07/30/2019 Orders Only [facility] Hematology/Oncology [address] [phone] Prince Owens MD [address] [place] [address] Social History Tobacco Use Types Packs/Day Years Used Date Smoking Tobacco: Never Cigarettes Smokeless Tobacco: Never Sex and Gender Information Value Date Recorded Sex Assigned at Not on file Legal Sex Male 10:51 PM EDT Gender Identity Not on file Sexual Orientation Not on file documented as of this encounter Progress Notes * Prince Owens MD - 07/30/2019 8:18 AM EDT Blood counts look great!! documented in this encounter Plan of Treatment Upcoming Encounters Date Type Department Care Team (Late Contact Info) Description 07/19/2025 9:00 AM EDT Office Visit [facility] Hematology/Oncology [address] [place] [phone] Prince Owens MD [address] [place] [address] R/S from 8-28 due to mother passing away 11/18/2025 2:00 PM EST Office Visit [facility] Dermatology [address] [place] [address] Iván Guajardo MD [address] [place] [address] Return in about 1 year (around 11/18/2025). documented as of this encounter Procedures * Due to [facility] law, this organization might not be sharing negative HIV tests. Procedure Name Priority Date/Time Associated Diagnosis Comments VENIPUNCTURE Routine 07/30/2019 8:18 AM EDT Acquired hemolytic anemia LACTATE DEHYDROGENASE (LDH), SERUM Routine 07/30/2019 8:18 AM EDT Acquired hemolytic anemia COMPREHENSIVE METABOLIC PANEL WITH GFR Routine 07/30/2019 8:18 AM EDT Acquired hemolytic anemia documented in this encounter Results * Due to [place] [employer] law, this organization might not be sharing negative HIV tests. * (ABNORMAL) COMPREHENSIVE METABOLIC PANEL WITH GFR (07/30/2019 8:18 AM EDT) Glucose 212(H) 65 - 99 mg/dL [facility] Comment: Fasting reference interval For someone without known diabetes, a glucose value >125 mg/dL indicates that they may have diabetes and this should be confirmed with a follow-up test. Urea Nitrogen Blood (BUN) 18 7 - 25 mg/dL [facility] Creatinine 0.90 0.70 - 1.33 mg/dL [facility] Comment: For patients >49 years of age, the reference limit for Creatinine is approximately 13% higher for people identified as -[place]. EGFR 93 > OR = 60 mL/min/1 .73m2 [facility] GFR () 108 > OR = 60 mL/min/1 .73m2 [facility] [...] - 2.5 (calc) [facility] Bilirubin Total 2.8(H) 0.2 - 1.2 mg/dL [facility] Alkaline phosphatase 54 40 - 115 U/L [facility] AST (SGOT) 18 10 - 35 U/L [facility] ALT (SGPT) 21 9 - 46 U/L [facility] 07/30/2019 8:18 AM EDT 07/30/2019 10:44 PM EDT Narrative [facility] - 07/31/2019 4:59 AM EDT Please note that this estimated [...] Resu lt Performing Organization Address City/[facility] Co de Phone Number [facility] [address] [place] [address] * LACTATE DEHYDROGENASE (LDH), SERUM (07/30/2019 8:18 AM EDT) Lactate dehydrogenase 175 120 - 250 U/L [facility] 07/30/2019 8:18 AM EDT 07/30/2019 10:44 PM EDT Narrative Resulting Agency Comment [id number] Prince wOens MD LABORATORY Final Resu lt Performing Organization Address City/[facility]/ZIP Co de Phone Number [facility] [address] [place] [address] * (ABNORMAL) CBC INCLUDES DIFFERENTIAL AND PLATELET COUNT (07/30/2019 8:18 AM EDT) WBC 5.2 3.8 - 10.8 Thousand/u L [facility] RBC 3.20(L) 4.20 - 5.80 Million/uL [facility] Hemoglobin 10.7(L) 13.2 - 17.1 g/dL [facility] Hematocrit 31.6(L) 38.5 - 50.0 % [facility] MCV 98.8 80.0 - 100.0 fL [facility] MCH 33.4(H) 27.0 - 33.0 pg [facility] MCHC 33.9 32.0 - 36.0 g/dL [facility] RDW 12.6 11.0 - 15.0 % [facility] PLT 219 140 - 400 Thousand/u L [facility] MPV 10.0 7.5 - 12.5 fL [facility] Neutrophils # 2590 1500 - 7800 cells/uL [facility] Lymphocytes # 2096 850 - 3900 cells/uL [facility] Monocytes # 307 200 - 950 cells/uL [facility] Eosinophils # 151 15 - 500 cells/uL [facility] Basophils # 57 0 - 200 cells/uL [facility] Neutrophils % 49.8 % [facility] Lymphocytes % 40.3 % [facility] Monocytes % 5.9 % [facility] Eosinophils % 2.9 % [facility] Basophils % 1.1 % [facility] 07/30/2019 8:18 AM EDT 07/30/2019 10:44 PM EDT Narrative Resulting Agency Comment [id number] us Prince Owens MD LAB SAME DAY RESULT Final Result Performing Organization Address City/State/[facility] de Phone Number [facility] [address] [place] [address] documented in this encounter Visit Diagnoses Diagnosis Acquired hemolytic anemia (HCC) Acquired hemolytic anemia, unspecified documented in this encounter Care Teams Creative Manager Relationship Specialty Start Date End Date Manoj Agudelo I [address] [phone] PCP - General Family Medicine 02/05/18 Prince Owens MD [address] [place] [address] Primary Hem Onc Provider Hematology/Oncology 04/18/25 documented as of this encounter
--- OUTSIDE RECORDS SUMMARY | 2025-07-08 14:33 | XMS_ITS | Encounter Summary ---
Author Organization [facility] Address [address] [place] [address] Care Team Providers Care Community Nutrition Educator Name Role Phone SantinochristianeManoj I Primary Care Provider [phone]- [phone] Prince Owens MD Unavailable [phone] Encounter Details Date Type Department Care Team (Late st Contact Info) Description 12/25/2018 Orders Only [facility] Hematology/Oncology [address] [phone] Prince Owens MD [address] [place] [address] Social History Tobacco Use Types Packs/Day Years Used Date Smoking Tobacco: Never Cigarettes Smokeless Tobacco: Never Sex and Gender Information Value Date Recorded Sex Assigned at Not on file Legal Sex Male 10:51 PM EDT Gender Identity Not on file Sexual Orientation Not on file documented as of this encounter Progress Notes * Prince Owens MD - 12/28/2018 5:46 PM EST No evidence of UTI documented in this encounter Plan of Treatment Upcoming Encounters Date Type Department Care Team (Late st Contact Info) Description 07/19/2025 9:00 AM EDT Office Visit [facility] Hematology/Oncology [address] [place] [phone] Prince Owens MD [address] [place] [address] R/S from 8-28 due to mother passing away 11/18/2025 2:00 PM EST Office Visit [facility] Dermatology [address] [place] [phone] Iván Guajardo MD [address] [place] [address] Return in about 1 year (around 11/18/2025). documented as of this encounter Procedures * Due to [place] [employer] law, this organization might not be sharing negative HIV tests. Procedure Name Priority Date/Time Associated Diagnosis Comments URINALYSIS DIP W/ REFLEX TO MICROSCOPIC+CULTURE Routine 12/25/2018 1:34 PM EST Urinary frequency CULTURE, URINE, ROUTINE Routine 12/25/2018 1:34 PM EST URINALYSIS, MICROSCOPIC WITH REFLEX CULTURE Routine 12/25/2018 1:34 PM EST documented in this encounter Results * Due to [place] [employer] law, this organization might not be sharing negative HIV tests. * CULTURE, URINE, ROUTINE (12/25/2018 1:34 PM EST) Bacteria culture (Urine) No Growth No Growth [facility] 12/25/2018 1:34 PM EST 12/25/2018 1:34 PM EST Narrative [facility] - 12/27/2018 8:52 AM EST Patient's primary care provider is: N/A Testing performed at: [facility], [address] [place] [address], [address], Lead Shop Operator: Bairon Kevin MD us Prince Owens MD LABORATORY Final Resu lt [address] [address] DIRECTOR Bairon Kevin MD * (ABNORMAL) URINALYSIS, MICROSCOPIC WITH REFLEX CULTURE (12/25/2018 1:34 PM EST) WBC (Urine) 10-15(A) NONE SEEN /HPF [facility] RBC (Urine Sed) 2-4(A) NONE SEEN /HPF [facility] Epithelial cells (Urine sed) NONE SEEN NONE SEEN /LPF [facility] Casts (Urine sed) RARE Fine granular(A ) NONE SEEN /LPF [facility] Crystals (Urine sed) NONE SEEN NONE SEEN /HPF [facility] Bacteria (Urine) NONE SEEN NONE SEEN /HPF [facility] Microscopic observation (Urine sed) SPERM /HPF [facility] 12/25/2018 1:34 PM EST 12/25/2018 1:34 PM EST Narrative [facility] - 12/25/2018 2:24 PM EST Patient's primary care provider is: N/A Testing performed at: [facility], [address] [place] [address], [address], Lead Shop Operator: Bairon Kevin MD us Prince Owens MD LABORATORY Final Resu lt [address] [address] DIRECTOR Bairon Kevin MD * (ABNORMAL) URINALYSIS DIP W/ REFLEX TO MICROSCOPIC+CULTURE (12/25/2018 1:34 PM EST) Color (Urine) Dark yellow(A) Yellow [facility] Clarity (Urine) Clear Clear [facility] Glucose (Urine) Negative Negative [facility] Bilirubin (Urine) Negative Negative [facility] Ketones (Urine) Negative Negative [facility] Specific gravity (Urine) >=1.030 1.005 - 1.030 [facility] Erythrocytes (Urine) Negative Negative [facility] pH (Urine) 5.0 5.0 - 8.0 [facility] Protein (Urine) Negative Negative [facility] Urobilinogen (Urine) 0.2 E.U./dL 0-1 E.U./dL [facility] Nitrite (Urine) Negative Negative [facility] Leukocyte esterase (Urine) Trace(A) Negative [facility] 12/25/2018 1:34 PM EST 12/25/2018 1:34 PM EST Narrative [facility] - 12/25/2018 2:20 PM EST Patient's primary care provider is: N/A Testing performed at: [facility], [address] [place] [address], [address], Lead Shop Operator: Bairon Kevin MD us Prince Owens MD LABORATORY Final Resu lt [address] [address] DIRECTOR Bairon Kevin MD documented in this encounter Visit Diagnoses Diagnosis Urinary frequency documented in this encounter Care Teams Community Nutrition Educator Relationship Specialty Start Date End Date Manoj Agudelo I [place] [address] [place] [phone] PCP - General Family Medicine 02/05/18 Prince Owens MD [address] [place] [address] Primary Hem Onc Provider Hematology/Oncology 04/18/25 documented as of this encounter
--- OUTSIDE RECORDS SUMMARY | 2025-07-08 14:33 | XMS_ITS | Encounter Summary ---
Author Organization [facility] Address [address] [place] [address] Care Team Providers Care Floor Trader Name Role Phone Manoj Agudelo Murali Primary Care Provider [phone] Prince Owens MD Unavailable [phone] Encounter Details Date Type Department Care Team (Late Contact Info) Description 05/30/2023 Orders Only [facility] Hematology/Oncology [address] [place] [phone] Prince Owens MD [address] [place] [address] Social History Tobacco Use Types Packs/Day Years Used Date Smoking Tobacco: Never Cigarettes Smokeless Tobacco: Never Sex and Gender Information Value Date Recorded Sex Assigned at Not on file Legal Sex Male 10:51 PM EDT Gender Identity Not on file Sexual Orientation Not on file documented as of this encounter Miscellaneous Notes * Result Encounter Note - Prince Owens MD - 05/30/2023 1:58 PM EDT Results normal/stable. I have notified the patient via Merak[employer]. documented in this encounter Plan of Treatment Upcoming Encounters Date Type Department Care Team (Late Contact Info) Description 07/19/2025 9:00 AM EDT Office Visit [facility] Hematology/Oncology [address] [place] [phone] Prince Owens MD [address] [place] [address] R/S from - due to mother passing away 11/18/2025 2:00 PM EST Office Visit [facility] Dermatology [address] [place] [phone] Iván Guajardo MD [address] [place] [address] Return in about 1 year (around 11/18/2025). documented as of this encounter Procedures * Due to [place] [employer] law, this organization might not be sharing negative HIV tests. Procedure Name Priority Date/Time Associated Diagnosis Comments CBC INCLUDES DIFFERENTIAL AND PLATELET COUNT Routine 05/30/2023 1:58 PM EDT Acquired hemolytic anemia LACTATE DEHYDROGENASE (LDH), SERUM Routine 05/30/2023 1:58 PM EDT Acquired hemolytic anemia COMPREHENSIVE METABOLIC PANEL WITH GFR Routine 05/30/2023 1:58 PM EDT Acquired hemolytic anemia documented in this encounter Results * Due to [place] [employer] law, this organization might not be sharing negative HIV tests. * (ABNORMAL) CBC INCLUDES DIFFERENTIAL AND PLATELET COUNT (05/30/2023 1:58 PM EDT) WBC 5.3 3.8 - 10.8 Thousand/u L [facility] RBC 2.94(L) 4.20 - 5.80 Million/uL [facility] Hemoglobin 9.9(L) 13.2 - 17.1 g/dL [facility] Hematocrit 29.6(L) 38.5 - 50.0 % [facility] MCV 100.7(H) 80.0 - 100.0 fL [facility] MCH 33.7(H) 27.0 - 33.0 pg [facility] MCHC 33.4 32.0 - 36.0 g/dL [facility] RDW 12.9 11.0 - 15.0 % [facility] PLT 203 140 - 400 Thousand/u L [facility] MPV 10.1 7.5 - 12.5 fL [facility] Neutrophils # 2926 1500 - 7800 cells/uL [facility] Lymphocytes # 1829 850 - 3900 cells/uL [facility] Monocytes # 345 200 - 950 cells/uL [facility] Eosinophils # 170 15 - 500 cells/uL [facility] Basophils # 32 0 - 200 cells/uL [facility] Neutrophils % 55.2 % [facility] Lymphocytes % 34.5 % [facility] Monocytes % 6.5 % [facility] Eosinophils % 3.2 % [facility] Basophils % 0.6 % [facility] 05/30/2023 1:58 PM EDT 05/31/2023 12:13 AM EDT Narrative Resulting Agency Comment [id number] us Prince Owens MD LAB SAME DAY RESULT Final Result [facility] [address] [place] [address] * (ABNORMAL) COMPREHENSIVE METABOLIC PANEL WITH GFR (05/30/2023 1:58 PM EDT) Glucose 154(H) 65 - 99 mg/dL [facility] Comment: Fasting reference interval For someone without known diabetes, a glucose value >125 mg/dL indicates that they may have diabetes and this should be confirmed with a follow-up test. Urea Nitrogen Blood (BUN) 21 7 - 25 mg/dL [facility] Creatinine 1.06 0.70 - 1.35 mg/dL [facility] EGFR 79 > OR = 60 mL/min/1 .73m2 [facility] [...] 10.3 mg/dL [facility] Protein Total (Serum) 7.6 6.1 - 8.1 g/dL [facility] Albumin 5.2(H) 3.6 - 5.1 g/dL [facility] Globulin 2.4 1.9 - 3.7 g/dL (calc) [facility] Albumin/Globuli n 2.2 1.0 - 2.5 (calc) [facility] Bilirubin Total 4.6(H) 0.2 - 1.2 mg/dL [facility] Alkaline phosphatase 54 35 - 144 U/L [facility] AST (SGOT) 16 10 - 35 U/L [facility] ALT (SGPT) 18 9 - 46 U/L [facility] 05/30/2023 1:58 PM EDT 05/31/2023 12:13 AM EDT Narrative [facility] - 05/31/2023 2:46 AM EDT Please note that this estimated [...] needs for GFR calculation. Resulting Agency Comment [id number] Prince Owens MD LABORATORY Final Resu lt [facility] [address] [place] [address] * LACTATE DEHYDROGENASE (LDH), SERUM (05/30/2023 1:58 PM EDT) Lactate dehydrogenase 192 120 - 250 U/L [facility] 05/30/2023 1:58 PM EDT 05/31/2023 12:13 AM EDT Narrative Resulting Agency Comment [id number] Prince Owens MD LABORATORY Final Resu lt [facility] [address] [place] [address] documented in this encounter Visit Diagnoses Diagnosis Acquired hemolytic anemia (HCC) Acquired hemolytic anemia, unspecified documented in this encounter Care Teams Floor Trader Relationship Specialty Start Date End Date Manoj Agudelo I [address] [phone] PCP - General Family Medicine 02/05/18 Prince Owens MD [address] [place] [address] Primary Hem Onc Provider Hematology/Oncology 04/18/25 documented as of this encounter
--- OUTSIDE RECORDS SUMMARY | 2025-07-08 14:33 | XMS_ITS | Encounter Summary ---
Author Organization [facility] Address [address] [place] [address] Care Team Providers Care Career Information Specialist Name Role Phone SantinochristianeManoj I Primary Care Provider [phone] Prince Owens MD Unavailable [phone] Encounter Details Date Type Department Care Team (Late Contact Info) Description 10/03/2022 Orders Only [facility] Hematology/Oncology [address] [place] [phone] Prince Owens MD [address] [place] [phone] Social History Tobacco Use Types Packs/Day Years Used Date Smoking Tobacco: Never Cigarettes Smokeless Tobacco: Never Sex and Gender Information Value Date Recorded Sex Assigned at Not on file Legal Sex Male 10:51 PM EDT Gender Identity Not on file Sexual Orientation Not on file documented as of this encounter Miscellaneous Notes * Result Encounter Note - Prince Owens MD - 10/03/2022 12:39 PM EST Notified patient of results via [email or web address] message. documented in this encounter Plan of Treatment Upcoming Encounters Date Type Department Care Team (Late Contact Info) Description 07/19/2025 9:00 AM EDT Office Visit [facility] Hematology/Oncology [address] [place] [phone] Prince Owens MD [address] [place] [address] R/S from 8-28 due to mother passing away 11/18/2025 2:00 PM EST Office Visit [facility] Dermatology [address] [place] [phone] Iván Guajardo MD [address] [place] [address] Return in about 1 year (around 11/18/2025). documented as of this encounter Procedures * Due to [place] [employer] law, this organization might not be sharing negative HIV tests. Procedure Name Priority Date/Time Associated Diagnosis Comments CBC INCLUDES DIFFERENTIAL AND PLATELET COUNT Routine 10/03/2022 12:39 PM EST Acquired hemolytic anemia LACTATE DEHYDROGENASE (LDH), SERUM Routine 10/03/2022 12:39 PM EST Acquired hemolytic anemia COMPREHENSIVE METABOLIC PANEL WITH GFR Routine 10/03/2022 12:39 PM EST Acquired hemolytic anemia documented in this encounter Results * Due to [place] [employer] law, this organization might not be sharing negative HIV tests. * (ABNORMAL) CBC INCLUDES DIFFERENTIAL AND PLATELET COUNT (10/03/2022 12:39 PM EST) WBC 6.0 3.8 - 10.8 Thousand/u L [facility] RBC 2.60(L) 4.20 - 5.80 Million/uL [facility] Hemoglobin 8.7(L) 13.2 - 17.1 g/dL [facility] Hematocrit 26.5(L) 38.5 - 50.0 % [facility] MCV 101.9(H) 80.0 - 100.0 fL [facility] MCH 33.5(H) 27.0 - 33.0 pg [facility] MCHC 32.8 32.0 - 36.0 g/dL [facility] RDW 13.4 11.0 - 15.0 % [facility] PLT 288 140 - 400 Thousand/u L [facility] MPV 9.7 7.5 - 12.5 fL [facility] Neutrophils # 3108 1500 - 7800 cells/uL [facility] Lymphocytes # 2136 850 - 3900 cells/uL [facility] Monocytes # 492 200 - 950 cells/uL [facility] Eosinophils # 222 15 - 500 cells/uL [facility] Basophils # 42 0 - 200 cells/uL [facility] Neutrophils % 51.8 % [facility] Lymphocytes % 35.6 % [facility] Monocytes % 8.2 % [facility] Eosinophils % 3.7 % [facility] Basophils % 0.7 % [facility] 10/03/2022 12:3 9 PM EST 10/04/2022 3:35 AM EST Narrative Resulting Agency Comment [id number] us Prince Owens MD LAB SAME DAY RESULT Final Result [facility] [address] [place] [address] * (ABNORMAL) COMPREHENSIVE METABOLIC PANEL WITH GFR (10/03/2022 12:39 PM EST) Glucose 164(H) 65 - 99 mg/dL [facility] Comment: Fasting reference interval For someone without known diabetes, a glucose value >125 mg/dL indicates that they may have diabetes and this should be confirmed with a follow-up test. Urea Nitrogen Blood (BUN) 21 7 - 25 mg/dL [facility] Creatinine 1.01 0.70 - 1.35 mg/dL [facility] EGFR 84 > OR = 60 mL/min/1 .73m2 [facility] Comment: The eGFR is based on the CKD-EPI 2020 equation. To calculate the new eGFR from a previous Creatinine or Cystatin C result, go to https://www.kidney.org/professionals/ kdoqi/gfr%5Fcalculator BUN/Creatinine Ratio NOT APPLICABLE 6 - 22 (calc) [facility] Sodium 137 135 - 146 mmol/L [facility] Potassium 4.2 3.5 - 5.3 mmol/L [facility] Chloride 100 98 - 110 mmol/L [facility] Carbon [...] 14 9 - 46 U/L [facility] 10/03/2022 12:3 9 PM EST 10/04/2022 3:35 AM EST Narrative [facility] - 10/04/2022 7:46 AM EST Please note that this estimated [...] needs for GFR calculation. Resulting Agency Comment [id number] Prince Owens MD LABORATORY Final Resu lt Performing Organization Address [facility] Co de Phone Number [facility] [address] [place] [address] * LACTATE DEHYDROGENASE (LDH), SERUM (10/03/2022 12:39 PM EST) Lactate dehydrogenase 183 120 - 250 U/L [facility] 10/03/2022 12:3 9 PM EST 10/04/2022 3:35 AM EST Narrative Resulting Agency Comment [id number] Prince Ownes MD LABORATORY Final Resu lt Performing Organization Address [facility] Co de Phone Number [facility] [address] [place] [address] documented in this encounter Visit Diagnoses Diagnosis Acquired hemolytic anemia (HCC) Acquired hemolytic anemia, unspecified documented in this encounter Care Teams Career Information Specialist Relationship Specialty Start Date End Date Manoj Agudelo I [address] [phone] PCP - General Family Medicine 02/05/18 Prince Owens MD [address] [place] [address] Primary Hem Onc Provider Hematology/Oncology 04/18/25 documented as of this encounter
--- OUTSIDE RECORDS SUMMARY | 2025-07-08 14:33 | XMS_ITS | Encounter Summary ---
Author Organization [facility] Address [address] [place] [address] Care Team Providers Care Body Presser Name Role Phone Manoj Agudelo I Primary Care Provider [phone]- [phone] Prince Owens MD Unavailable [phone] Encounter Details Date Type Department Care Team (Late st Contact Info) Description 02/24/2019 Orders Only [facility] Hematology/Oncology [address] [address] Prince Owens MD [address] [place], [place] [phone] Social History Tobacco Use Types Packs/Day Years Used Date Smoking Tobacco: Never Cigarettes Smokeless Tobacco: Never Sex and Gender Information Value Date Recorded Sex Assigned at Not on file Legal Sex Male 10:51 PM EDT Gender Identity Not on file Sexual Orientation Not on file documented as of this encounter Progress Notes * Prince Owens MD - 02/24/2019 6:39 PM EDT Nursing: Kindly recheck to this patient and encouraged him that his blood is back to baseline. I will plan on not checking this routinely unless he develops worsening dark urine or recurrent symptoms. I should see him back in about 2 months time or sooner if symptoms occurs before this. documented in this encounter Plan of Treatment Upcoming Encounters Date Type Department Care Team (Late st Contact Info) Description 07/19/2025 9:00 AM EDT Office Visit [facility] Hematology/Oncology [address] [place] [address] Prince Owens MD [address] [place] [address] R/S from 8-28 due to mother passing away 11/18/2025 2:00 PM EST Office Visit [facility] Dermatology [address] [place] [address] Iván Guajardo MD [address] [place], [place] [phone] Return in about 1 year (around 11/18/2025). documented as of this encounter Procedures * Due to [facility] law, this organization might not be sharing negative HIV tests. Procedure Name Priority Date/Time Associated Diagnosis Comments CBC INCLUDES DIFFERENTIAL AND PLATELET COUNT STAT (All results called to provider) 02/24/2019 3:04 PM EDT Acquired hemolytic anemia documented in this encounter Results * Due to [place] [employer] law, this organization might not be sharing negative HIV tests. * (ABNORMAL) CBC INCLUDES DIFFERENTIAL AND PLATELET COUNT (02/24/2019 3:04 PM EDT) WBC 6.2 3.8 - 10.8 K/uL [facility] Neutrophils # 3.1 1.5 - 7.8 K/uL [facility] Immature Granulocytes # 0.0 0.0 - 0.1 K/uL [facility] Lymphocytes # 2.6 0.9 - 3.9 K/uL [facility] Monocytes # 0.4 0.2 - 1.0 K/uL [facility] Eosinophils # 0.1 0.0 - 0.5 K/uL [facility] Basophils # 0.0 0.0 - 0.2 K/uL [facility] Neutrophils % 49.3 % [facility] Immature Granulocytes % 0.50 % [facility] Lymphocytes % 41.2 % [facility] Monocytes % 6.4 % [facility] Eosinophils % 2.1 % [facility] Basophils % 0.5 % [facility] RBC 3.02(L) 4.20 - 5.80 M/uL [facility] Hemoglobin 9.9(L) 13.2 - 17.1 g/dL [facility] Hematocrit 31.4(L) 38.5 - 50.0 % [facility] MCV 104.0(H) 80.0 - 100.0 fl [facility] MCH 32.8 27.0 - 33.0 pg [facility] MCHC 31.5(L) 32.0 - 36.0 g/dL [facility] RDW 16.0(H) 11.0 - 15.0 % [facility] PLT 369 140 - 400 K/uL [facility] 02/24/2019 3:04 PM EDT 02/24/2019 3:04 PM EDT Narrative [facility] - 02/24/2019 3:27 PM EDT non fasting - per pt only this lab test Patient's primary care provider is: N/A Testing performed at: [facility], [address] [place] [address], [address], Electric Frying Pan Repairer: Bairon Kevin MD us Prince Owens MD LAB SAME DAY RESULT Final Result Performing Organization Address City/State/[facility] Co de Phone Number [address] [address] DIRECTOR Bairon Kevin MD documented in this encounter Visit Diagnoses Diagnosis Acquired hemolytic anemia (HCC) Acquired hemolytic anemia, unspecified documented in this encounter Care Teams Body Presser Relationship Specialty Start Date End Date Manoj Agudelo I [address] [address] [place] [address] PCP - General Family Medicine 02/05/18 Prince Owens MD [address] [place] [address] Primary Hem Onc Provider Hematology/Oncology 04/18/25 documented as of this encounter
--- OUTSIDE RECORDS SUMMARY | 2025-07-08 14:33 | XMS_ITS | Encounter Summary ---
Author Organization [facility] Address [address] [place] [address] Care Team Providers Care Lottery Sales Clerk Name Role Phone Manoj Agudelo I Primary Care Provider [phone] Prince Owens MD Unavailable [phone] Encounter Details Date Type Department Care Team (Late st Contact Info) Description 07/23/2023 Telephone [facility] Night Triage [address] [place] [address] Manoj Agudelo I [address] [address] [place] [address] Social History Tobacco Use Types Packs/Day Years [...] encounter Miscellaneous Notes * Telephone Encounter - Lexie Fraga - 07/23/2023 7:02 PM EDT Call was routed wrong called switchboard and spoke with Yulisa, provided Quests number and she saidshe will handle having it sent to correct provider. H Creasey, RN documented in this encounter Plan of Treatment Upcoming Encounters Date Type Department Care Team (Late st Contact Info) Description 07/19/2025 9:00 AM EDT Office Visit [facility] Hematology/Oncology 5 [place] [address] Prince Owens MD 5 [place] [address] R/S from - due to mother passing away 11/18/2025 2:00 PM EST Office Visit [facility] Dermatology 5 [place] [address] Iván Guajardo MD [address] [place] [address] Return in about 1 year (around 11/18/2025). documented as of this encounter Visit Diagnoses Not on filedocumented in this encounter Care Teams Lottery Sales Clerk Relationship Specialty Start Date End Date Manoj Agudelo I [address] [address] [place] [address] PCP - General Family Medicine 02/05/18 Prince Owens MD [address] [place] [address] Primary Hem Onc Provider Hematology/Oncology 04/18/25 documented as of this encounter
--- OUTSIDE RECORDS SUMMARY | 2025-07-08 14:33 | XMS_ITS | Encounter Summary ---
Author Organization [facility] Address [address] [place] [address] Phone Care Team Providers Care Launch Operator Name Role Phone Manoj Agudelo MD Primary Care Provider Prince Owens MD Unavailable [phone] Encounter Details Date Type Department Care Team (Late st Contact Info) Description 01/25/2025 Telephone [facility] [address] [facility], 7th Floor, [address] [place] [address] Simon Rangel MD, DPHIL [address] [place] [address] [email or web address] Social History Tobacco Use Types Packs/Day Years [...] Description 07/26/2025 11:30 AM EDT Blood Draw [facility] [address] [facility], 7th Floor, [address] [place] [address] Simon Mancia MD, PhD 55 [facility] [address] [place] [address] [email or web address] Simon Rangel MD, DPCTL [address] [place] [address] [email or web address] 07/26/2025 12:30 PM EDT Office Visit [facility] [address] [facility], 7th Floor, [address] [place] [address] Simon Rangel MD, DPHIL [address] [place] [address] [email or web address] documented as of this encounter Visit Diagnoses Not on filedocumented in this encounter Additional Health Concerns Assessment Noted Time PHQ-2 Depression Total Score: 0 05/04/20 18 1:03 PM EDT documented as of this encounter Care Teams Launch Operator Relationship Specialty Start Date End Date Manoj Agudelo MD [address] [place] [address] [address] [place] [address] PCP - General Family Medicine 12/26/17 Prince Owens MD [address] [place] [address] [email or web address] Referring Physician Internal Medicine 12/26/17 documented as of this encounter Additional Source Comments The information contained in this document represents components of the legal health record. It is not the complete legal health record.[facility]
--- OUTSIDE RECORDS SUMMARY | 2025-07-08 14:33 | XMS_ITS | Encounter Summary ---
Author Organization [facility] Address [address] [place] [address] Care Team Providers Care Diabetic Educator Name Role Phone Manoj Agudelo MD Primary Care Provider Encounter Details Date Type Department Care Team (Late st Contact Info) Description 09/09/[address] [address] Adan Cerda, ENE [address] [place] [address] Social History Tobacco Use Types Packs/Day Years [...] Info) Description 12/05/2025 8:30 AM EST Appointment [facility] Pulmonary Function Lab [address] [place] [address] Speedy Denise MD [address] [place] [address] 12/05/2025 9:40 AM EST Follow-Up [facility] [address] [place] [address] Re Examiner: Speedy Ha MD [address] [place] [address] documented as of this encounter Visit Diagnoses [...] documented as of this encounter Care Teams Diabetic Educator Relationship Specialty Start Date End Date Manoj Agudelo MD [address] [place] [address] PCP - General 05/22/17 documented as of this encounter
--- OUTSIDE RECORDS SUMMARY | 2025-07-08 14:33 | XMS_ITS | Encounter Summary ---
Author Organization [facility] Address [address] [place] [address] Care Team Providers Care Bale Opener Name Role Phone Manoj Agudelo MD Primary Care Provider Encounter Details Date Type Department Care Team (Late st Contact Info) Description 06/24/2025 Neurelishart Message [facility] Endoscopy [address] [place] [address] [facility], Generic Provider [address] [place] [phone] Questionnaire Submission Social History Tobacco Use Types Packs/Day Years [...] Info) Description 12/05/2025 8:30 AM EST Appointment [facility] Pulmonary Function Lab [address] [place] [address] Speedy Denise MD [address] [place] [address] 12/05/2025 9:40 AM EST Follow-Up [facility] Lung [facility] All[facility] Center [address] [place] [address] Salesperson Flying Squad: Speedy Ha MD [address] [place] [address] documented as of this encounter Visit Diagnoses Not on filedocumented in this encounter Care Teams Bale Opener Relationship Specialty Start Date End Date Manoj Agudelo MD [address] [place] [address] PCP - General 05/22/17 documented as of this encounter
--- OUTSIDE RECORDS SUMMARY | 2025-07-08 14:33 | XMS_ITS | Encounter Summary ---
Author Organization [facility] Address [address] [place] [address] Care Team Providers Care Machine Binder Stripper Name Role Phone Manoj Agudelo Murali Primary Care Provider [phone] Prince Owens MD Unavailable [phone] Encounter Details Date Type Department Care Team (Late Contact Info) Description 04/30/2023 Orders Only [facility] Hematology/Oncology [address] [place] [phone] Prince Owens MD [address] [place] [address] Social History Tobacco Use Types Packs/Day Years Used Date Smoking Tobacco: Never Cigarettes Smokeless Tobacco: Never Sex and Gender Information Value Date Recorded Sex Assigned at Not on file Legal Sex Male 10:51 PM EDT Gender Identity Not on file Sexual Orientation Not on file documented as of this encounter Miscellaneous Notes * Result Encounter Note - Prince Owens MD - 04/30/2023 2:06 PM EDT Results normal/stable. I have notified the patient via [employer]. documented in this encounter Plan of Treatment Upcoming Encounters Date Type Department Care Team (Late Contact Info) Description 07/19/2025 9:00 AM EDT Office Visit [facility] Hematology/Oncology [address] [place] [phone] Prince Owens MD 5 [place] [address] R/S from 8- due to mother passing away 11/18/2025 2:00 PM EST Office Visit [facility] Dermatology 5 [place] [phone] Iván Guajardo MD [address] [place] [address] Return in about 1 year (around 11/18/2025). documented as of this encounter Procedures * Due to [place] [employer] law, this organization might not be sharing negative HIV tests. Procedure Name Priority Date/Time Associated Diagnosis Comments CBC INCLUDES DIFFERENTIAL AND PLATELET COUNT Routine 04/30/2023 2:13 PM EDT Acquired hemolytic anemia documented in this encounter Results * Due to [place] [employer] law, this organization might not be sharing negative HIV tests. * (ABNORMAL) CBC INCLUDES DIFFERENTIAL AND PLATELET COUNT (04/30/2023 2:13 PM EDT) WBC 6.3 3.8 - 10.8 Thousand/ uL [facility] RBC 2.49(L) 4.20 - 5.80 Million/u L [facility] Hemoglobin 8.3(L) 13.2 - 17.1 g/dL [facility] Hematocrit 25.6(L) 38.5 - 50.0 % [facility] MCV 102.8(H) 80.0 - 100.0 fL [facility] MCH 33.3(H) 27.0 - 33.0 pg [facility] MCHC 32.4 32.0 - 36.0 g/dL [facility] RDW 13.6 11.0 - 15.0 % [facility] PLT 274 140 - 400 Thousand/ uL [facility] MPV 10.3 7.5 - 12.5 fL [facility] Neutrophils # 3490 1500 - 7800 cells/uL [facility] Bands # 252 0 - 750 cells/uL [facility] Lymphocytes 2306 850 - 3900 cells/uL [facility] Monocytes # 252 200 - 950 cells/uL [facility] Eosinophils # 0(L) 15 - 500 cells/uL [facility] Basophils # 0 0 - 200 cells/uL [facility] Neutrophils % 55.4 % [facility] Band Neutrophils % 4.0 % [facility] Lymphocytes % 36.6 % [facility] Monocytes % 4.0 % [facility] Eosinophils % 0 % [facility] Basophils % 0 % [facility] NOTE See Below [facility] Comment: Although an automated CBC was ordered, our instrumentation detected an abnormality on your patient's specimen requiring us to perform a manual review. 04/30/2023 2:13 PM EDT 04/30/2023 6:23 PM EDT Narrative Resulting Agency Comment [id number] us Prince Owens MD LAB SAME DAY RESULT Final Result Performing Organization Address City/State/[facility] Co de Phone Number [facility] [address] [place] [address] documented in this encounter Visit Diagnoses Diagnosis Acquired hemolytic anemia (HCC) Acquired hemolytic anemia, unspecified documented in this encounter Care Teams Machine Binder Stripper Relationship Specialty Start Date End Date Manoj Agudelo I [address] [address] [place] [address] PCP - General Family Medicine 02/05/18 Prince Owens MD [address] [place] [address] Primary Hem Onc Provider Hematology/Oncology 04/18/25 documented as of this encounter
--- OUTSIDE RECORDS SUMMARY | 2025-07-08 14:33 | XMS_ITS | Encounter Summary ---
Author Organization [facility] Address [address] [place] [address] Phone Care Team Providers Care Breast Puller Name Role Phone Manoj Agudelo MD Primary Care Provider Prince Owens MD Unavailable [phone] Encounter Details Date Type Department Care Team (Late st Contact Info) Description 01/19/2018 Procedure Pass DF IMG OUTSIDE IMG [address] [place] [address] Social History Tobacco Use Types Packs/Day Years [...] Description 07/26/2025 11:30 AM EDT Blood Draw [facility] Center for Hematology [address] [facility], 7th Floor, [address] [place] [address] Simon Mancia MD, PhD [facility] [address] [place] [address] [email or web address] Simon Vargas MD, DPHIL [address] [place] [address] [email or web address] 07/26/2025 12:30 PM EDT Office Visit [facility] Center for Hematology [address] [facility], 7th Floor, [address] [place] [address] Simon Rangel MD, DPHIL [address] [place] [address] [email or web address] documented as of this encounter Visit Diagnoses Not on filedocumented in this encounter Care Teams Breast Puller Relationship Specialty Start Date End Date Manoj Agudelo MD [address] [place] [address] [address] [place] [address] PCP - General Family Medicine 12/26/17 Prince Owens MD [address] [place] [address] [address] [place] [address] [email or web address] Referring Physician Internal Medicine 12/26/17 documented as of this encounter Additional Source Comments The information contained in this document represents components of the legal health record. It is not the complete legal health record.[facility]
--- OUTSIDE RECORDS SUMMARY | 2025-07-08 14:33 | XMS_ITS | Encounter Summary ---
Author Organization [facility] Address [address] [place] [address] Care Team Providers Care Casino Porter Name Role Phone Manoj Agudelo I Primary Care Provider [phone] Prince Owens MD Unavailable [phone] Encounter Details Date Type Department Care Team (Late Contact Info) Description 02/10/2019 Orders Only [facility] Hematology/Oncology [address] [address] Prince Owens MD [address] [place] [address] Social History Tobacco Use Types Packs/Day Years Used Date Smoking Tobacco: Never Cigarettes Smokeless Tobacco: Never Sex and Gender Information Value Date Recorded Sex Assigned at Not on file Legal Sex Male 10:51 PM EDT Gender Identity Not on file Sexual Orientation Not on file documented as of this encounter Progress Notes * Prince Owens MD - 02/10/2019 12:08 PM EDT Labs are continuing to improve!! Good news.. After tomorrow we can probably check in a week as longas your urine stays clear. documented in this encounter Plan of Treatment Upcoming Encounters Date Type Department Care Team (Late Contact Info) Description 07/19/2025 9:00 AM EDT Office Visit [facility] Hematology/Oncology [address] [place] [phone] Prince Owens MD [address] [place] [address] R/S from 8-28 due to mother passing away 11/18/2025 2:00 PM EST Office Visit [facility] Dermatology 5 [place] [phone] Iván Guajardo MD [address] [place] [address] Return in about 1 year (around 11/18/2025). documented as of this encounter Procedures * Due to [facility] law, this organization might not be sharing negative HIV tests. Procedure Name Priority Date/Time Associated Diagnosis Comments CBC INCLUDES DIFFERENTIAL AND PLATELET COUNT STAT (All results called to provider) 02/10/2019 8:22 AM EDT Acquired hemolytic anemia documented in this encounter Results * Due to [facility] law, this organization might not be sharing negative HIV tests. * (ABNORMAL) CBC INCLUDES DIFFERENTIAL AND PLATELET COUNT (02/10/2019 8:22 AM EDT) WBC 6.4 3.8 - 10.8 Thousand/ uL [facility] RBC 2.39(L) 4.20 - 5.80 Million/u L [facility] Hemoglobin 7.5(L) 13.2 - 17.1 g/dL [facility] Hematocrit 23.8(L) 38.5 - 50.0 % [facility] MCV 99.6 80.0 - 100.0 fL [facility] MCH 31.4 27.0 - 33.0 pg [facility] MCHC 31.5(L) 32.0 - 36.0 g/dL [facility] RDW 14.5 11.0 - 15.0 % [facility] PLT 220 140 - 400 Thousand/ uL [facility] MPV 9.0 7.5 - 12.5 fL [facility] Neutrophils # 3130 1500 - 7800 cells/uL [facility] Lymphocytes # 2598 850 - 3900 cells/uL [facility] Monocytes # 397 200 - 950 cells/uL [facility] Eosinophils # 262 15 - 500 cells/uL [facility] Basophils # 13 0 - 200 cells/uL [facility] Neutrophils % 48.9 % [facility] Lymphocytes % 40.6 % [facility] Monocytes % 6.2 % [facility] Eosinophils % 4.1 % [facility] Basophils % 0.2 % [facility] Service comment 01 SEE NOTE [facility] Comment: The smear was manually reviewed and the instrument differential results have been confirmed. The instrument differential has been reported. Slide review performed at [address] [place] [id number]. Buff Wheel Fabricator: Lulu Smith MD. 02/10/2019 8:22 AM EDT 02/10/2019 8:46 AM EDT Narrative Resulting Agency Comment [id number] us Prince Owens MD LAB SAME DAY RESULT Final Result Performing Organization Address City/State/[facility] Co de Phone Number [facility] [address] [place] [address] documented in this encounter Visit Diagnoses Diagnosis Acquired hemolytic anemia (HCC) Acquired hemolytic anemia, unspecified documented in this encounter Care Teams Casino Porter Relationship Specialty Start Date End Date Manoj Agudelo I [address] [address] [place] [address] PCP - General Family Medicine 02/05/18 Prince Owens MD [address] [place] [address] Primary Hem Onc Provider Hematology/Oncology 04/18/25 documented as of this encounter
--- OUTSIDE RECORDS SUMMARY | 2025-07-08 14:33 | XMS_ITS | Clinical Summary ---
Author Organization [facility] Address [address] [place] [address] Care Team Providers Care Laborer Sh[place] Name Role Phone Manoj Agudelo MD Primary Care Provider Allergies Active Allergy Reactions Criticality Noted Date Comments Rituximab Anaphylaxis High 2025 Medications atorvastatin (LIPITOR) 10 mg tablet 10mg DAILY. NOT CURRENTLY TAKING WHILE TAKING PAXLOVID Act akash folic acid 0.8 mg capsule Take 1 tablet by mouth once a day. Active Januvia 100 mg tablet Take 100 mg by mouth once a day. 01/29/20 22 Active Basaglar KwikPen U-100 Insulin 100 unit/mL (3 mL) insulin pen Inject 10 Units under the skin nightly. 9 mL 03/05/20 22 Active Additional Information Patient taking differently: 30 Unitssubcutaneous Nightly, Reported on 07/24/2023 oxygen 3 Liter DAILY (route: Oxygen) 11/18/19 22 Active omeprazole (PriLOSEC) 20 mg capsule Take 20 mg by mouth once a day. Active Droplet Pen Needle 4 mm x 32 g SMARTSIG:injection 3 Times Daily 04/14/20 23 Active polyethylene glycol (GoLYTELY) solution Refer to prep instructions provided by your physician. Add 1 gallon (128 ounces) of water to the GoLytely/Colyte/Nulyt eric container and refrigerate. At 4 PM the day before your procedure, drink one 8-ounce glass of the bowel preparation solution every 10 - 15 minutes until half the container is empty, about 8 glasses. Five (5) hours before your procedure drink one 8-ounce glass of the bowel preparation solution every 10 - 15 minutes until the entire container is empty. Continue to drink clear non-alcoholic liquids up until 2 hours prior to your procedure. 4000 mL 05/10/20 25 025 Active Active Problems Problem Noted Date Diagnosed [...] & Plan (11/14/2017 7:28 AM EST): 11/14/2017 Encounters Date Type Department Care Team Description 2025 8:05 AM EDT - 2025 8:45 AM EDT Surgery [facility] [address] [place] [phone] Vanessa Lara DO COLONOSCOPY SCREENING, LOW RISK WITH POSSIBLE MODERATE SEDATION 2025 7:52 AM EDT Anesthesia Event [facility] [address] [place] [id number] Rei Duarte MD Zapson, Daniel Scott, MD 2025 7:03 AM EDT - 2025 9:22 AM EDT Hospital Encounter [facility] [address] [place] [id number] Vanessa Lara DO Colon cancer screening Discharge Disposition: Home or Self Care () 06/24/2025 myChart Message [facility] [address] [place] [phone] Mychart, Generic Provider Questionnaire Submission 05/16/2025 8:20 AM EDT Follow-Up [facility] [address] [place] [address] Manager Event: Speedy Ha MD Interstitial lung disease (HCC) (Primary Dx) 05/09/2025 Prep for Case [facility] [address] [place] [phone] Manager Event: Vanessa Harvey DO from Last 3 Months Immunizations Immunization Administration Dates Next Due Influenza, Injectable, Quadr ivalent, Preservative Free 07/24/2023(Deferred: Patient Refused) Pneumococcal conjugate PCV20,polysaccharide [id number] conjugate, adjuvant, PF (Prevnar 20) 04/30/2024 Family History Medical History Relation Name Comments Other Father Family History of malignant neoplasm /Family History of diabetes mellitus /Family History of cardiac disorder Other Mother Family History of arthritis Relation Name Status Comments Father Mother Alive Social History Tobacco Use Types Packs/Day Years Used Date Smoking Tobacco: Former Cigarettes Q uit: 02/17/2006 Smokeless Tobacco: Never Tobacco Cessation:Counseling Given: Not Answered Comments:: Alcohol Use Standard Drinks/Week Comments Not Currently 0 (1 standard drink = 0.6 oz pur e alcohol) vague response Sex and Gender Information Value Date Recorded Sex Assigned at Male 02/18/2022 8:29 AM EDT Legal Sex Male 2:43 AM EDT Gender Identity Male 02/18/2022 8:29 AM EDT Sexual Orientation Straight 02/18/2022 8: 29 AM EDT Last Filed Vital Signs Vital Sign Reading Time Taken Comments Blood Pressure 130/78 2025 9:13 AM EDT Pulse 69 2025 9:13 AM EDT Temperature 36.4 C (97.5 F) 2025 8:52 AM EDT Respiratory Rate 19 2025 9:00 AM EDT Oxygen Saturation 93% 2025 9:13 AM EDT Inhaled Oxygen Concentration - - Weight 82.9 kg (182 lb 12.8 oz) 05/16/2025 8:39 AM EDT Height 177.8 cm (5' 10 ) 07/24/2023 8:25 PM EDT Body Mass Index 26.23 07/24/2023 8:25 PM EDT Plan of Treatment Upcoming Encounters Date Type Department Care Team (Late st Contact Info) Description 12/05/2025 8:30 AM EST Appointment [facility] [address] [place] [phone] Speedy Denise MD [address] [place] [address] 12/05/2025 9:40 AM EST Follow-Up [facility] [address] [place] [address] Manager Event: Speedy Ha MD [address] [place] [phone] Health Maintenance Due Date Last Done Comments Cologuard 1960 FOBT / Fit Test 1960 Sigmoidoscopy 1960 COVID-19 Vaccine (#1) 1965 Ophthalmology Exam 1970 Zoster Vaccines (1 of 2) 1979 RSV Vaccine (60+ years old and patients) (1 - Risk 60-74 years 1-dose series) 2020 Alcohol/Substance Use Screening 11/03/2024 Depression Screening and Follow-Up 11/03/2024 Health Care Proxy Review 11/03/2024 Social Drivers of Health Annual Screening 11/03/2024 Influenza Vaccine (#1) 2025 Hemoglobin A1C 09/17/2025 03/17/2025, 03/2 03/2025, 10/26/2024, Additional history exists Urine Microalbumin 09/21/2025 09/21/2024, 0 11/13/2023, 11/07/2022, Additional history exists Basic Metabolic Panel 06/14/2026 06/14/2025 , 05/11/2025, 05/04/2025, Additional history exists DTaP,Tdap,and Td Vaccines (2 - Td or Tdap) 11/14/2030 11/14/2020 Colon Cancer Screening 2035 Colonoscopy 2035 2025 HIV Screening Completed 11/21/2017 Hepatitis C Screening Completed 11/21/2017, 017 Abdominal Aortic Aneurysm (AAA) Screening Completed 04/19/2022, 11/22/2017, 07/21/2014 CT Lung Cancer Screening (12 months, previous LungRADS 1 or 2) Discontinued 07/08/2023, 07/04/2022, 03/04/2022, Additional history exists Pneumococcal Vaccine: 50+ Years Completed 04/30/2024 Hepatitis B Vaccines Aged Out No long er eligible based on patient's age to complete this topic Medical Devices Implanted Type Area Aerobics Teacher Device Identifier Shelf Expiration Date Model / Serial / Lot Stent Biliary Double Pigtail Polyethylene Purple 7fr 7cm [facility] - [id number] Implanted:Qty: 1 on 04/20/2022 by Daniel Dillon MD at [facility] Stent [employer] 03/19/2024 [id number] / / [id number] Procedures * Due to [place] state law, this organization might not be sharing negative HIV tests. 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) Pure hypercholesterolemia Essential hypertension, malignant Diabetes mellitus without complication (HCC) Other hemoglobinopathies (HCC) Routine general medical examination at a [facility] care facility BASIC METABOLIC PANEL Routine 03/17/2025 8:55 AM EDT General medical exam 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) Pure hypercholesterolemia Essential hypertension, malignant Diabetes mellitus without complication (HCC) Other hemoglobinopathies (HCC) Routine general medical examination at a health care facility MICROALBUMIN, RANDOM URINE WITH CREATININE Routine 09/21/2024 12:54 PM EST Type 2 diabetes mellitus without complication, with long-term current use of insulin Pure hypercholesterolemia Essential hypertension, malignant Malignant neoplasm of urinary bladder, unspecified site CT CHEST INTERSTITIAL LUNG DISEASE/FIBROSIS Routine 07/08/2023 10:47 AM EDT SOB (shortness of breath) CT ABDOMEN PELVIS W CONTRAST STAT 04/19/2022 8:24 PM EDT HEPATITIS PANEL, ACUTE Routine 11/21/2017 10:06 AM EST Drug-induced nonautoimmune hemolytic anemia from Last 3 Months or Most Recently Relevant to Health Maintenance Results * Due to [place] state law, this organization might not be sharing negative HIV tests. * (ABNORMAL) POCT Glucose, interfaced (2025 8:58 AM EDT) Only the most recent of2 resultswithin the time period is included. [facility] Glucose, POCT 136(H) 70 - 99 mg/dL 2025 9:21 AM EDT [facility] Comment: The banner painter has not determined the efficacy of this test in Critically ill patients. [facility] defines Critically ill patients for the purpose of blood glucose monitoring (BGM) by glucometer, as patients meeting one or more of the following criteria: Hypotension- non-ICU patients (systolic blood pressure Less than 90 mmHg) due to shock Hypotension -ICU patients (Mean Arterial Pressure (MAP) <60 mmHg or systolic blood pressure < 90 mmHg due to shock Patients receiving Vasopressors (phenylephrine, vasopressin or norepinephrine) Anasarca In all locations, BGM test results should not be relied upon in the above situations, unless these results confirmed with lab-based glucose values. Blood 2025 8:58 AM EDT 2025 9:21 AM EDT us Vanessa Jane DO LAB POCT ORDERABLES - DEVICE Final Result [facility] [address] [place] [address], [place] * Tissue Exam (2025 8:23 AM EDT) Final Diagnosis Specimen #1 - Colon (Ascending), Polypectomy: - Sessile serrated adenoma. Specimen #2 - Colon (Ascending Abnormal Mucosa), Biopsy: - Colon mucosa with focal erythrocyte extravasation and fibrosis in the lamina propria. - No dysplasia or malignancy seen. Specimen #3 - Colon (Sigmoid), Polypectomy: - Hyperplastic polyp(s). Specimen #4 - Colon (Rectum), Polypectomy: - Hyperplastic polyp. [facility] MANUAL 06/29/2025 2:23 PM EDT [facility] at 1423 EDT Clinical History Pre-op diagnosis: Colon cancer screening [Z12.11] [place] MANUAL 06/29/2025 2:23 PM EDT [facility] ANATOM[facility] PATHOLOGY LABORAT[facility] Gross Description 1. Large Intestine, Ascending Colon Received in formalin, labeled with the patient's name, date of , medical record number, and ascending polyp , are 2 bañuelos soft tissue fragments (0.3 x 0.2 x 0.2 cm and 0.4 x 0.2 x 0.2 cm). The specimen is entirely submitted in cassette 1A. 2. Large Intestine, Ascending Colon, ascending abnormal mucosa bx Received in formalin, labeled with the patient's name, date of , medical record number, and ascending abnormal mucosa BX , are 2 bañuelos soft tissue fragments (0.4 x 0.2 x 0.2 cm and 0.5 x 0.2 x 0.1 cm). The specimen is entirely submitted in cassette 2A. 3. Large Intestine, Sigmoid Colon Received in formalin, labeled with the patient's name, date of , medical record number, and sigmoid polyp x 3 , are multiple bañuelos-pink soft tissue fragments, ranging from 0.2 x 0.1 x 0.1 cm to 0.3 x 0.3 x 0.2 cm. The specimen is entirely submitted in cassette 3A. 4. Large Intestine, Rectum Received in formalin, labeled with the patient's name, date of , medical record number, and rectal polyp , is a bañuelos soft tissue fragment (0.3 x 0.3 x 0.2 cm). The specimen is entirely submitted in cassette 4A. [facility] MANUAL 06/29/2025 2:23 PM EDT [facility] ANATOM[facility] PATHOLOGY LAB[facility] Gross Description User Grossing complete by Suzanne Castillo on 2025 3:21 PM [facility] MANUAL 06/29/2025 2:23 PM EDT [facility] ANATOMIC PATHOLOGY LAB[facility] Embedded Images [facility] MANUAL 06/29/2025 2:23 PM EDT [facility] ANATOM[facility]OLOG[facility] LABORATORY Resulting Agency Case was signed out at [facility], Department of Pathology, [employer] 3 CLIA [id number] [facility] MANUAL 06/29/2025 2:23 PM EDT [employer] ANATOMIC PATHOLOGY LABORATORY Report Header Surgical Pathology Report Case: [id number] Authorizing Provider: aVnessa Lara DO Collected: 2025 0823 Ordering Location: [facility] Received: 2025 1053 [facility] Pathologist: Elvia Snell MD Specimens: 1) - Large Intestine, Ascending Colon, ascending polyp 2) - Large Intestine, Ascending Colon, ascending abnormal mucosa bx 3) - Large Intestine, Sigmoid Colon, sigmoid polyp x3 4) - Large Intestine, Rectum, rectal polyp 06/29/2025 2:23 PM EDT [email or web address] ProVation Case Yes [facility] MANUAL 06/29/2025 2:23 PM EDT [employer] ANATOMIC PATHOLOGY LABORATORY SURGICAL CSN Component [id number] [facility] MANUAL 06/29/2025 2:23 PM EDT [employer] [facility] ANATOMIC PATHOLOGY LABORATORY Polyp Entire ascending colon / Unknown 2025 8:23 AM EDT 2025 10:53 AM EDT Comment:Pre-op diagnosis: Colon cancer screening [Z12.11] Tissue specimen (specimen) Entire ascending colon / Unknown 2025 8:27 AM EDT 2025 10:53 AM EDT Comment:Pre-op diagnosis: Colon cancer screening [Z12.11] Specimen from mass lesion (specimen) Entire sigmoid colon / Unknown 2025 8:35 AM EDT 2025 10:53 AM EDT Comment:Pre-op diagnosis: Colon cancer screening [Z12.11] Specimen from mass lesion (specimen) Rectum structure / Unknown 2025 8:47 AM EDT 2025 10:53 AM EDT Comment:Pre-op diagnosis: Colon cancer screening [Z12.11] Vanessa Lara DO LAB PATHOLOGY/CYTOLOGY ORDERA BLEBelinda Final Result [facility] LAB[facility]ORY [address] [place] [address], [facility]ATOM[facility] PATHOLOG[facility] LABORATORY [address] [place] [address], * COLONOSCOPY (2025) Narrative Procedure Note Vanessa Lara DO - 2025 7:24 AM EDT [facility] Gastroenterology Patient Name: Asif Mccullough Procedure Date: 2025 7:24 AM Date of : 1960 Admit Type: Outpatient Age: 65 Room: [place] [address] Gender: Male Note Status: Finalized Attending MD: Vanessa Lara MD, Procedure: Colonoscopy Indications: High risk colon cancer surveillance: Personal history of colonicpolyps Providers: Vanessa Lara MD (Doctor) Referring MD: Manoj Agudelo MD (Referring MD) Requesting Provider: Medicines: Monitored Anesthesia Care Complications: No immediate complications. Estimated Blood Loss: Estimated blood loss was minimal. Procedure: Pre-Anesthesia Assessment: - Monitored anesthesia care under the supervisionof a BURRING WHEEL OPERATOR was determined to be medically necessary forthis procedure based on review of the patient's medical history, medications, and prior anesthesiahistory. After I obtained informed consent, the scope was passed under direct vision. Throughout theprocedure, the patient's blood pressure, pulse, and oxygen saturations were monitored continuously. The [id number] was introduced through the anusand advanced to the terminal ileum. The colonoscopy was somewhat difficult due to significant looping and a tortuous colon. Successful completion of theprocedure was aided by applying abdominal pressure. Thepatient tolerated the procedure well. The quality of thebowel preparation was evaluated using the BBPS (BostonBowel Preparation Scale) with scores of: Right Colon = 2 (minor amount of residual staining, small fragmentsof stool and/or opaque liquid, but mucosa seen well), Transverse Colon = 2 (minor amount of residual staining, small fragments of stool and/or opaque liquid, but mucosa seen well) and Left Colon = 2 (minor amount of residual staining, small fragmentsof stool and/or opaque liquid, but mucosa seen well).The total BBPS score equals 6. The quality of the bowel preparation was adequate. Findings: The terminal ileum appeared normal. Scattered small-mouthed diverticula were found in the sigmoidcolon. A 2 mm polyp was found in the ascending colon. The polyp was sessile. The polyp was removed with a jumbo cold forceps. Resection andretrieval were complete. A localized area of furrowed and nodular mucosa was found in the ascending colon. Biopsies were taken with a cold forceps forhistology. Three sessile polyps were found in the sigmoid colon. The polyps were2 to 3 mm in size. These polyps were removed with a jumbo cold forceps. Resection and retrieval were complete. A 3 mm polyp was found in the rectum. The polyp was sessile. Thepolyp was removed with a jumbo cold forceps. Resection and retrieval were complete. Non-bleeding external hemorrhoids were found during retroflexion. The hemorrhoids were small. Impression: - The examined portion of the ileum was normal. - Diverticulosis in the sigmoid colon. - One 2 mm polyp in the ascending colon, removedwith a jumbo cold forceps. Resected and retrieved. - Furrowed and nodular mucosa in the ascendingcolon. Biopsied. - Three 2 to 3 mm polyps in the sigmoid colon,removed with a jumbo cold forceps. Resected andretrieved. - One 3 mm polyp in the rectum, removed with ajumbo cold forceps. Resected and retrieved. - Non-bleeding external hemorrhoids. Recommendation: - The patient will be observed post-procedure,until all discharge criteria are met. - Resume previous diet. - Await pathology results. - Repeat colonoscopy in 3 years for surveillance if3 or more adenomatous polyps. Otherwise, repeat in 5 years for surveillance and due to suboptimalprep. Attending Participation: I personally performed the entire procedure. Vanessa Lara MD 2025 8:57:43 AM Number of Addenda: 0 Note Initiated On: 2025 7:24 AM us Vanessa Lara DO [employer] PROCEDURES Final Re sult * Hemoglobin A1c (03/17/2025 8:55 AM EDT) Hemoglobin A1c <4.2 <=5.6 % 03/17/2025 10:57 AM EDT [facility] Comment: Patients >=18 years: 5.7-6.4% Increased risk for diabetes (prediabetes) >= 6.5% Diabetes Patients <18 years: Hemoglobin A1c criteria for diagnosing diabetes have not been established for this age range. Estimated Average Glucose 03/17/2025 10:57 AM EDT [facility] Comment:Unable to calculate Blood Structure of peripheral vein / Unknown Venipuncture / Unknown 03/17/2025 8:55 AM EDT 03/17/2025 8:56 AM EDT Manoj Agudelo MD LAB BLOOD ORDERABLES F inal Result [facility] [address] [place] [phone], * (ABNORMAL) Basic Metabolic Panel (03/17/2025 8:55 AM EDT) NA 142 135 - 145 mmol/L 03/17/2025 10:04 AM EDT [facility] K 3.7 3.5 - 5.3 mmol/L 03/17/2025 10:04 AM EDT [facility] Cl 103 98 - 107 mmol/L 03/17/2025 10:04 AM EDT [facility] CO2 28 22 - 32 mmol/L 03/17/2025 10:04 AM EDT [facility] BUN 16 7 - 23 mg/dL 03/17/2025 10:04 AM EDT [facility] Creatinine 0.94 0.60 - 1.30 mg/dL 03/17/2025 10:04 AM EDT [facility] Glucose 115(H) 65 - 99 mg/dL 03/17/2025 10:04 AM EDT [facility] Calcium 9.1 8.6 - 10.5 mg/dL 03/17/2025 10:04 AM EDT [facility] Anion Gap 11 5 - 15 03/17/2025 10:04 AM EDT [facility] eGFR >90 >=60 mL/min/1 .73m2 03/17/2025 10:04 AM EDT [facility] Comment:The estimated glomer ular filtration rate (eGFR) is calculated using a new formula developed by the NKF-ASN task force to eliminate race-based correction factors. The new formula uses serum/plasma creatinine, age, and gender to determine eGFR. A value below 60mls/min might indicate kidney disease and will be flagged. For additional information, see [place] et al, Am J Kidney Dis. 2021;79(2):268- 288, A Unifying Approach for GFR estimation: Recommendations of the NKF-ASN Task Force on Reassessing the Inclusion of Race in Diagnosing Kidney Disease . Blood Structure of peripheral vein / Unknown Venipuncture / Unknown 03/17/2025 8:55 AM EDT 03/17/2025 8:56 AM EDT us Manoj Agudelo MD LAB BLOOD ORDERABLES F inal Result [facility] [address] [place] [address], * Microalbumin/Creatinine Urine, Random (09/21/2024 12:54 PM EST) Microalbumin, Urine <2.0 mg/dL 09/21/2024 8:45 PM EST [facility] Creatinine, Urine 181 22 - 328 mg/dL 09/21/2024 8:45 PM EST [facility] Microalb/Creat Ratio, Random Urine 09/21/2024 8:45 PM EST [facility] Comment: < 1.0 mcg/mgCr Microalbumin Reference Range: Normal <30 mcg/mg Creatinine Microalbuminuria 30-300 mcg/mg Creatinine Clinical Albuminuria >300 mcg/mg Creatinine Reference: ADA Guideline. Diabetes Care. 2004;27 (suppl 1) Urine Voided urine specimen / Unknown Non-Blood Collection / Unknown 09/21/2024 12:54 PM EST 09/21/2024 1:37 PM EST us Manoj Agudelo MD LAB URINE ORDERABLES F inal Result [facility] [address] [place] [address], [place] * CT Chest High Resolution WO Contrast (07/08/2023 10:47 AM EDT) Anatomical Region Laterality Modality Body Computed Tomogra phy 07/08/2023 11:5 1 AM EDT Impressions 07/22/2023 8:32 PM EDT Impression: No significant change in the near diffuse peripheral lung scarring which is likely fibrosis from organizing pneumonia secondary to COVID-19 pneumonia. If this radiology report contains a blank impression section, it is an incomplete radiology report. Please contact the interpreting radiologist or applicable radiology division as soon as possible to obtain the completed interpretation. Workstation ID: [id number] Up-to-date CT equipment and radiation dose reduction techniques were employed. CTDIvol: .9 - 6.2 mGy. DLP: 387 mGy-cm. Narrative 07/22/2023 8:[address] CHEST HIGH RESOLUTION WO CONTRAST Indication: Pulmonary fibrosis. R06.02 - I10 - Shortness of breath. Hospitalized for 3 months in the winter of 2020 due to COVID-19 pneumonia, suffered secondary pneumothorax, talc pleurodesis. Hypertension, pulmonary embolism, bladder cancer. Technique: Helical images were obtained from the thoracic inlet to the lung bases without intravenous contrast material. Coronal and sagittal reformatted images were provided. For radiation dose control at least one of the following techniques was used in this procedure: (1) Automated exposure control (2) Adjustment of the mA and/or kV according to patient size (3) Use of iterative reconstruction technique. High-resolution CT images: Thin section inspiration and expiration as well as limited prone views were obtained. Comparison: CT chest without contrast 07/04/2022, 03/04/2022, 02/01/2022; CT chest, abdomen, and pelvis with contrast 11/22/2017 Findings: Neck and thoracic inlet: Unremarkable, no thyromegaly. MEDIASTINUM AND LARGE VESSELS: Aorta Normal aortic diameter. Pulmonary arteries Unremarkable shape and diameter. Esophagus Very small hiatal hernia, otherwise stable slight upper esophageal wall thickening. Other mediastinal findings No other abnormal mediastinal findings are present. HEART: Cardiac size Normal. Coronary arteries Mild coronary calcifications. Valves No valvular calcifications. Pericardium Unremarkable. LYMPH NODES: Supraclavicular and axillary Normal sized lymph nodes, no enlarged lymph nodes. Mediastinal Normal sized lymph nodes, no enlarged lymph nodes. Hilar Normal sized lymph nodes, no enlarged lymph nodes. Others None. LUNG PARENCHYMA: No significant change in the scattered peripheral subpleural bandlike opacities, volume loss, architectural distortion, and traction bronchiectasis throughout the lungs with overall relative sparing of the left lower lobe. The most focal areas of traction bronchiectasis and bronchiolectasis are in the lingula and middle lobe anteriorly. The greatest volume loss is of the left upper lobe. No new or developing suspicious pulmonary nodule. Airways: Scattered traction bronchiectasis, greatest in the left upper lobe. No definite air trapping. Pleura: No pleural effusion, thickening, or pneumothorax. UPPER ABDOMEN: Partial visualized internal biliary drain and stent. Partial visualized spleen is likely still enlarged. No other significant change. CHEST WALL AND BONES: Unremarkable chest wall. Mild multilevel disc degeneration, normal thoracic vertebral body heights. Resulting Agency Comment [id number] Procedure Note Morgan Hewitt MD - 07/22/2023 CT CHEST HIGH RESOLUTION WO CONTRAST Indication: Pulmonary fibrosis. R06.02 - I10 - Shortness of breath.Hospitalized for 3 months in the winter of 2020 due to COVID-19 pneumonia,suffered secondary pneumothorax, talc pleurodesis. Hypertension,pulmonary embolism, bladder cancer. Technique: Helical images were obtained from the thoracic inlet to thelung bases without intravenous contrast material. Coronal and sagittalreformatted images were provided. For radiation dose control at least oneof the following techniques was used in this procedure: (1) Automatedexposure control (2) Adjustment of the mA and/or kV according to patientsize (3) Use of iterative reconstruction technique. High-resolution CT images: Thin section inspiration and expiration as wellas limited prone views were obtained. Comparison: CT chest without contrast 07/04/2022, 03/04/2022, 02/01/2022;CT chest, abdomen, and pelvis with contrast 11/22/2017 Findings: Neck and thoracic inlet: Unremarkable, no thyromegaly. MEDIASTINUM AND LARGE VESSELS: Aorta Normal aortic diameter. Pulmonary arteries Unremarkable shape and diameter. Esophagus Very small hiatal hernia, otherwise stable slight upper esophageal wallthickening. Other mediastinal findings No other abnormal mediastinal findings are present. HEART: Cardiac size Normal. Coronary arteries Mild coronary calcifications. Valves No valvular calcifications. Pericardium Unremarkable. LYMPH NODES: Supraclavicular and axillary Normal sized lymph nodes, no enlarged lymph nodes. Mediastinal Normal sized lymph nodes, no enlarged lymph nodes. Hilar Normal sized lymph nodes, no enlarged lymph nodes. Others None. LUNG PARENCHYMA: No significant change in the scattered peripheral subpleural bandlikeopacities, volume loss, architectural distortion, and tractionbronchiectasis throughout the lungs with overall relative sparing of theleft lower lobe. The most focal areas of traction bronchiectasis andbronchiolectasis are in the lingula and middle lobe anteriorly. Thegreatest volume loss is of the left upper lobe. No new or developingsuspicious pulmonary nodule. Airways: Scattered traction bronchiectasis, greatest in the left upper lobe. Nodefinite air trapping. Pleura: No pleural effusion, thickening, or pneumothorax. UPPER ABDOMEN: Partial visualized internal biliary drain and stent. Partial visualizedspleen is likely still enlarged. No other significant change. CHEST WALL AND BONES: Unremarkable chest wall. Mild multilevel disc degeneration, normalthoracic vertebral body heights. 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 If this radiology report contains a blank impression section, it is anincomplete radiology report. Please contact the interpreting radiologistor applicable radiology division as soon as possible to obtain thecompleted interpretation. Workstation ID: [id number] Up-to-date CT equipment and radiation dose reduction techniques wereemployed. CTDIvol: .9 - 6.2 mGy. DLP: 387 mGy-cm. Speedy Denise MD IMG CT PROCEDURES Final Result * CT Abdomen Pelvis W Contrast (04/19/2022 8:24 PM EDT) Anatomical Region Laterality Modality Body Computed Tomogra phy 04/19/2022 8:45 PM EDT Impressions 04/19/2022 8:54 PM EDT 1. Cholelithiasis with equivocal findings of cholecystitis. 2. Small hiatal hernia. No evidence of bowel obstruction. 3. Stable appearance of the urinary bladder status post TURP. If this radiology report contains a blank impression section, it is an incomplete radiology report. Please contact the interpreting radiologist or applicable radiology division as soon as possible to obtain the completed interpretation. Workstation ID: [id number] Up-to-date CT equipment and radiation dose reduction techniques were employed. CTDIvol: 11.7 mGy. DLP: 651 mGy-cm. Narrative 04/19/2022 8:54 PM EDT COMPARISON: 11/22/2017 FINDINGS: LUNG BASES: Chronic fibrotic opacities in both lungs, as well as atelectasis and emphysema. Left pleural calcifications. An chronic appearing pleural fluid. Small hiatal hernia. LIVER: Hepatic size and contour unchanged. Homogeneously enhancing without focal mass. Prominent royer hepatis and portacaval lymph nodes. GALLBLADDER: There is circumferential gallbladder wall thickening, with numerous intraluminal calculi. There are several small calculi within the cystic duct. BILIARY TREE: Normal caliber. SPLEEN: Splenomegaly unchanged with homogeneous parenchymal enhancement and patent dilated splenic and superior mesenteric veins. PANCREAS: Unremarkable. ADRENAL GLANDS: No nodule bilaterally. KIDNEYS: Symmetric excretion without hydronephrosis or hydroureter bilaterally. No nephrolithiasis. AORTA: Normal caliber and enhancement. There is calcified atherosclerotic disease of the aorta and branch vessels. . IVC: Normal caliber and enhancement. BOWEL:No evidence of obstruction. Normal appendix. PELVIC ORGANS: Configuration of the urinary bladder with a prominent fold traversing the bladder dome, unchanged. No definite enhancing bladder wall mass. Stable findings of TURP. Symmetric seminal vesicles. PERITONEUM-RETROPERITONEUM: No ascites or pneumoperitoneum.. LYMPHADENOPATHY: Prominent royer hepatis lymph nodes as above likely reactive, with a few additional scattered lymph nodes including within the small bowel mesentery. SOFT TISSUES: Small umbilical hernia containing fat symmetric soft tissues. BONES: Transitional vertebra with pseudoarthrosis on the right and discogenic changes at L4-5. Normal vertebral body height and alignment with scattered Schmorl's nodes and proliferative changes. Resulting Agency Comment [id number] Procedure Note Mikael Cook MD - 04/19/2022 COMPARISON: 11/22/2017 FINDINGS: LUNG BASES: Chronic fibrotic opacities in both lungs, as well asatelectasis and emphysema. Left pleural calcifications. An chronicappearing pleural fluid. Small hiatal hernia. LIVER: Hepatic size and contour unchanged. Homogeneously enhancingwithout focal mass. Prominent royer hepatis and portacaval lymphnodes. GALLBLADDER: There is circumferential gallbladder wall thickening, withnumerous intraluminal calculi. There are several small calculi within thecystic duct. BILIARY TREE: Normal caliber. SPLEEN: Splenomegaly unchanged with homogeneous parenchymal enhancementand patent dilated splenic and superior mesenteric veins. PANCREAS: Unremarkable. ADRENAL GLANDS: No nodule bilaterally. KIDNEYS: Symmetric excretion without hydronephrosis or hydroureterbilaterally. No nephrolithiasis. AORTA: Normal caliber and enhancement. There is calcified atheroscleroticdisease of the aorta and branch vessels. . IVC: Normal caliber and enhancement. BOWEL:No evidence of obstruction. Normal appendix. PELVIC ORGANS: Configuration of the urinary bladder with a prominent foldtraversing the bladder dome, unchanged. No definite enhancing bladderwall mass. Stable findings of TURP. Symmetric seminal vesicles. PERITONEUM-RETROPERITONEUM: No ascites or pneumoperitoneum.. LYMPHADENOPATHY: Prominent royer hepatis lymph nodes as above likelyreactive, with a few additional scattered lymph nodes including within thesmall bowel mesentery. SOFT TISSUES: Small umbilical hernia containing fat symmetric softtissues. BONES: Transitional vertebra with pseudoarthrosis on the right anddiscogenic changes at L4-5. Normal vertebral body height and alignmentwith scattered Schmorl's nodes and proliferative changes. IMPRESSION: 1. Cholelithiasis with equivocal findings of cholecystitis. 2. Small hiatal hernia. No evidence of bowel obstruction. 3. Stable appearance of the urinary bladder status post TURP. If this radiology report contains a blank impression section, it is anincomplete radiology report. Please contact the interpreting radiologistor applicable radiology division as soon as possible to obtain thecompleted interpretation. Workstation ID: [id number] Up-to-date CT equipment and radiation dose reduction techniques wereemployed. CTDIvol: 11.7 mGy. DLP: 651 mGy-cm. Benton Morrison MD IM CT PROCEDURES Final Resul t * Hepatitis Panel, Acute (11/21/2017 10:06 AM EST) Hepatitis A IgM NON-REACT AKASH NON-REACT AKASH 11/24/2017 10:14 AM [employer] [facility] Hepatitis B Surface Antigen NON-REACT AKASH NON-REACT AKASH 11/24/2017 10:14 AM EST [employer] [facility] Hepatitis B Core Antibody NON-REACT AKASH NON-REACT AKASH 11/24/2017 10:14 AM [employer] [facility] Hepatitis C Antibody NON-REACT AKASH NON-REACT AKASH 11/24/2017 10:14 AM [employer] [facility] Signal To Cut-Off 0.01 <1.00 11/24/2017 10:14 AM [employer] [facility] Blood specimen (specimen) Structure of peripheral vein / Unknown Venipuncture / Unknown 11/21/2017 10:06 AM EST 11/21/2017 10:46 AM EST Narrative JV ZAZUETA - 11/24/2017 10:14 AM EST [facility] Received Date: us Prince Owens MD LAB BLOOD ORDERABLES Edited Result - Final JV ZAZUETA [address] [facility] [address] Floor, [place] [address], [place] [phone] [facility] [address], [place] [address], [place] [phone] from Last 3 Months or Most Recently Relevant to Health Maintenance Insurance [facility] [employer] Advance Directives Documents on File Type Date Recorded Patient Supervisor Intelligence Analyst Expl anation Health Care Proxy 03/01/2022 3:09 PM 03-01 * Full Code (Latest Code Status on File) Date Activated Date Inactivated Comments 07/24/2023 3:00 PM 07/25/2023 1:55 PM * Full Code Date Activated Date Inactivated Comments 02/16/2022 11:22 PM 03/05/2022 9:15 PM * Full Code Date Activated Date Inactivated Comments 02/16/2022 11:18 PM 02/16/2022 11:21 PM * Full Code Date Activated Date Inactivated Comments 11/11/2017 4:27 PM 11/12/2017 8:35 PM Healthcare Agents on File Name Relationship Healthcare Agent Relationshi p Communication Lidia Mccullough Spouse Health Care Agent Kavay Alas Other Alternate Health Care Age nt Care Teams Laborer [place] Relationship Specialty Start Date End Date Manoj Agudelo MD [address] [place] [id number] PCP - General 05/22/17
--- OUTSIDE RECORDS SUMMARY | 2025-07-08 14:33 | XMS_ITS | Encounter Summary ---
Author Organization [facility] Address [address] [place] [address] Care Team Providers Care Hospital Nurse Name Role Phone Manoj Agudelo I Primary Care Provider [phone] Prince Owens MD Unavailable [phone] Encounter Details Date Type Department Care Team (Late Contact Info) Description 10/29/2019 Orders Only [facility] Hematology/Oncology [address] [phone] Prince Owens MD [address] [place] [address] Social History Tobacco Use Types Packs/Day Years Used Date Smoking Tobacco: Never Cigarettes Smokeless Tobacco: Never Sex and Gender Information Value Date Recorded Sex Assigned at Not on file Legal Sex Male 10:51 PM EDT Gender Identity Not on file Sexual Orientation Not on file documented as of this encounter Progress Notes * Prince Owens MD - 10/29/2019 8:17 AM EST Counts are stable.. documented in this encounter Plan of Treatment Upcoming Encounters Date Type Department Care Team (Late Contact Info) Description 07/19/2025 9:00 AM EDT Office Visit [facility] Hematology/Oncology [address] [place] [phone] Prince Owens MD [address] [place] [address] R/S from 8-28 due to mother passing away 11/18/2025 2:00 PM EST Office Visit [facility] Dermatology [address] [place] [phone] Iván Guajardo MD [address] [place] [address] Return in about 1 year (around 11/18/2025). documented as of this encounter Procedures * Due to [facility] law, this organization might not be sharing negative HIV tests. Procedure Name Priority Date/Time Associated Diagnosis Comments CBC INCLUDES DIFFERENTIAL AND PLATELET COUNT Routine 10/29/2019 8:17 AM EST Acquired hemolytic anemia LACTATE DEHYDROGENASE (LDH), SERUM Routine 10/29/2019 8:17 AM EST Acquired hemolytic anemia VENIPUNCTURE Routine 10/29/2019 8:17 AM EST Acquired hemolytic anemia documented in this encounter Results * Due to [place] [employer] law, this organization might not be sharing negative HIV tests. * (ABNORMAL) CBC INCLUDES DIFFERENTIAL AND PLATELET COUNT (10/29/2019 8:17 AM EST) WBC 5.2 3.8 - 10.8 Thousand/u L [facility] RBC 3.13(L) 4.20 - 5.80 Million/uL [facility] Hemoglobin 10.5(L) 13.2 - 17.1 g/dL [facility] Hematocrit 31.3(L) 38.5 - 50.0 % [facility] MCV 100.0 80.0 - 100.0 fL [facility] MCH 33.5(H) 27.0 - 33.0 pg [facility] MCHC 33.5 32.0 - 36.0 g/dL [facility] RDW 12.5 11.0 - 15.0 % [facility] PLT 209 140 - 400 Thousand/u L [facility] MPV 9.7 7.5 - 12.5 fL [facility] Neutrophils # 2418 1500 - 7800 cells/uL [facility] Lymphocytes # 2096 850 - 3900 cells/uL [facility] Monocytes # 343 200 - 950 cells/uL [facility] Eosinophils # 302 15 - 500 cells/uL [facility] Basophils # 42 0 - 200 cells/uL [facility] Neutrophils % 46.5 % [facility] Lymphocytes % 40.3 % [facility] Monocytes % 6.6 % [facility] Eosinophils % 5.8 % [facility] Basophils % 0.8 % [facility] 10/29/2019 8:17 AM EST 10/29/2019 11:19 AM EST Narrative Resulting Agency Comment [id number] us Prince Owens MD LAB SAME DAY RESULT Final Result Performing Organization Address [facility] Co de Phone Number [facility] [address] [place] [address] * LACTATE DEHYDROGENASE (LDH), SERUM (10/29/2019 8:17 AM EST) Lactate dehydrogenase 168 120 - 250 U/L [facility] 10/29/2019 8:17 AM EST 10/29/2019 11:19 AM EST Narrative Resulting Agency Comment [id number] Prince Owens MD LABORATORY Final Resu lt Performing Organization Address [facility] de Phone Number [facility] [address] [place] [address] * (ABNORMAL) BILIRUBIN, TOTAL, SERUM (10/29/2019 8:17 AM EST) Bilirubin Total 2.6(H) 0.2 - 1.2 mg/dL [facility] 10/29/2019 8:17 AM EST 10/29/2019 11:19 AM EST Narrative Resulting Agency Comment [id number] us Prince Owens MD LAB SAME DAY RESULT Final Result Performing Organization Address [facility] de Phone Number [facility] [address] [place] [address] documented in this encounter Visit Diagnoses Diagnosis Acquired hemolytic anemia (HCC) Acquired hemolytic anemia, unspecified documented in this encounter Care Teams Hospital Nurse Relationship Specialty Start Date End Date Manoj Agudelo I [address] [phone] PCP - General Family Medicine 02/05/18 Prince Owens MD [address] [place] [address] Primary Hem Onc Provider Hematology/Oncology 04/18/25 documented as of this encounter
--- OUTSIDE RECORDS SUMMARY | 2025-07-08 14:33 | XMS_ITS | Encounter Summary ---
Author Organization [facility] Address [address] [place] [address] Care Team Providers Care Certified Court/Medical Interpreter Name Role Phone Manoj Agudelo I Primary Care Provider [phone] Prince Owens MD Unavailable Reason for Visit * Reason Comments Results Critical lab result Encounter Details Date Type Department Care Team ([facility] st Contact Info) Description 07/23/2023 Telephone [facility] Night Triage [address] [place] [address] Manoj Agudelo I [place] [address] [place] [address] Results (Critical lab result) Social History Tobacco Use Types Packs/Day Years [...] encounter Miscellaneous Notes * Telephone Encounter - Aparna Yanez - 07/23/2023 6:49 PM EDT Reason for call: Lab/test results- Hemoglobin 6.4 Ordering provider: Prince Owens M.D. PCP: Manoj Agudelo I Date testing was done: 07/23/2023 Location of testing: [facility] Allergies: Lovenox Action taken: Message routed to provider for orders. Lab Result: Name of Caller: Macie Greenberg Name of Facility: [facility] Call Back Number: [phone] Lab/[facility]ilogy Reported: Hemoglobin 6.4 Date/Time of Collection:07/23/2023 1100am Ordering Provider: Prince Owens M.D. PCP: Manoj Agudelo M.D. documented in this encounter Plan of Treatment Upcoming Encounters Date Type Department Care Team (Late st Contact Info) Description 07/19/2025 9:00 AM EDT Office Visit [facility] Hematology/Oncology [address] [place] [phone] Prince Owens MD [address] [place] [address] R/S from 8-28 due to mother passing away 11/18/2025 2:00 PM EST Office Visit [facility] Dermatology [address] [place] [phone] Iván Guajardo MD [address] [place] [address] Return in about 1 year (around 11/18/2025). documented as of this encounter Visit Diagnoses Not on filedocumented in this encounter Care Teams Certified Court/Medical Interpreter Relationship Specialty Start Date End Date Manoj Agudelo I [address] [phone] PCP - General Family Medicine 02/05/18 Prince Owens MD [address] [place] [address] Primary Hem Onc Provider Hematology/Oncology 04/18/25 documented as of this encounter
--- OUTSIDE RECORDS SUMMARY | 2025-07-08 14:33 | XMS_ITS | Encounter Summary ---
Author Organization [facility] Address [address] [place] [address] Care Team Providers Care Pneumatic Jacketer Name Role Phone Manoj Agudelo I Primary Care Provider [phone] Prince Owens MD Unavailable [phone] Encounter Details Date Type Department Care Team (Late Contact Info) Description 08/29/2019 Orders Only [facility] Hematology/Oncology [address] [phone] Prince Owens MD [address] [place] [address] Social History Tobacco Use Types Packs/Day Years [...] Office Visit [facility] Hematology/Oncology [address] [place] [phone] Prince Owens MD [address] [place] [address] R/S from 8-28 due to mother passing away 11/18/2025 2:00 PM EST Office Visit [facility] Dermatology [address] [place] [phone] Iván Guajardo MD [address] [place] [address] Return in about 1 year (around 11/18/2025). documented as of this encounter Procedures * Due to [place] [employer] law, this organization might not be sharing negative HIV tests. Procedure Name Priority Date/Time Associated Diagnosis Comments VENIPUNCTURE Routine 08/29/2019 10:27 AM EDT Acquired hemolytic anemia LACTATE DEHYDROGENASE (LDH), SERUM Routine 08/29/2019 10:27 AM EDT Acquired hemolytic anemia BILIRUBIN, TOTAL, SERUM (ADULT) Routine 08/29/2019 10:27 AM EDT Acquired hemolytic anemia documented in this encounter Results * Due to [place] [employer] law, this organization might not be sharing negative HIV tests. * (ABNORMAL) BILIRUBIN, TOTAL, SERUM (08/29/2019 10:27 AM EDT) Bilirubin Total 3.0(H) 0.2 - 1.2 mg/dL [facility] 08/29/2019 10:2 7 AM EDT 08/29/2019 9:47 PM EDT Narrative Resulting Agency Comment [id number] us Prince Owens MD LAB SAME DAY RESULT Final Result [facility] [address] [place] [address] * LACTATE DEHYDROGENASE (LDH), SERUM (08/29/2019 10:27 AM EDT) Lactate dehydrogenase 179 120 - 250 U/L [facility] 08/29/2019 10:2 7 AM EDT 08/29/2019 9:47 PM EDT Narrative Resulting Agency Comment [id number] us Prince Owens MD LABORATORY Final Resu lt [facility] [address] [place] [address] * (ABNORMAL) CBC INCLUDES DIFFERENTIAL AND PLATELET COUNT (08/29/2019 10:27 AM EDT) WBC 6.2 3.8 - 10.8 Thousand/u L [facility] RBC 3.22(L) 4.20 - 5.80 Million/uL [facility] Hemoglobin 11.0(L) 13.2 - 17.1 g/dL [facility] Hematocrit 31.6(L) 38.5 - 50.0 % [facility] MCV 98.1 80.0 - 100.0 fL [facility] MCH 34.2(H) 27.0 - 33.0 pg [facility] MCHC 34.8 32.0 - 36.0 g/dL [facility] RDW 12.3 11.0 - 15.0 % [facility] PLT 240 140 - 400 Thousand/u L [facility] MPV 9.9 7.5 - 12.5 fL [facility] Neutrophils # 3261 1500 - 7800 cells/uL [facility] Lymphocytes # 2337 850 - 3900 cells/uL [facility] Monocytes # 409 200 - 950 cells/uL [facility] Eosinophils # 161 15 - 500 cells/uL [facility] Basophils # 31 0 - 200 cells/uL [facility] Neutrophils % 52.6 % [facility] Lymphocytes % 37.7 % [facility] Monocytes % 6.6 % [facility] Eosinophils % 2.6 % [facility] Basophils % 0.5 % [facility] 08/29/2019 10:2 7 AM EDT 08/29/2019 9:47 PM EDT Narrative Resulting Agency Comment [id number] us Prince Owens MD LAB SAME DAY RESULT Final Result Performing Organization Address City/State/[facility] Co de Phone Number [facility] [address] [place] [address] documented in this encounter Visit Diagnoses Diagnosis Acquired hemolytic anemia (HCC) Acquired hemolytic anemia, unspecified documented in this encounter Care Teams Pneumatic Jacketer Relationship Specialty Start Date End Date Manoj Agudelo I [address] [phone] PCP - General Family Medicine 02/05/18 Prince Owens MD [address] [place] [address] Primary Hem Onc Provider Hematology/Oncology 04/18/25 documented as of this encounter
--- OUTSIDE RECORDS SUMMARY | 2025-07-08 14:33 | XMS_ITS | Encounter Summary ---
Author Organization [facility] Address [address] [place] [address] Care Team Providers Care Automotive Sales Professional Name Role Phone Manoj Agudelo I Primary Care Provider [phone]- [phone] Prince Owens MD Unavailable Encounter Details Date Type Department Care Team (Late Contact Info) Description 02/17/2019 Orders Only [facility] Hematology/Oncology [address] [phone] Prince Owens MD [address] [place] [address] Social History Tobacco Use Types Packs/Day Years Used Date Smoking Tobacco: Never Cigarettes Smokeless Tobacco: Never Sex and Gender Information Value Date Recorded Sex Assigned at Not on file Legal Sex Male 10:51 PM EDT Gender Identity Not on file Sexual Orientation Not on file documented as of this encounter Progress Notes * Prince Owens MD - 02/22/2019 8:49 PM EDT Labs look great!! Back to normal for you... I would only re check if you notice dark urine again. documented in this encounter Plan of Treatment Upcoming Encounters Date Type Department Care Team (Late st Contact Info) Description 07/19/2025 9:00 AM EDT Office Visit [facility] Hematology/Oncology [address] [place] [phone] Prince Owens MD 5 [place] [address] R/S from 8-28 due to mother passing away 11/18/2025 2:00 PM EST Office Visit [facility] Dermatology 5 [place] [address] Iván Guajardo MD 5 [place], [place] [phone] Return in about 1 year (around 11/18/2025). documented as of this encounter Procedures * Due to [place] [employer] law, this organization might not be sharing negative HIV tests. Procedure Name Priority Date/Time Associated Diagnosis Comments CBC INCLUDES DIFFERENTIAL AND PLATELET COUNT STAT (All results called to provider) 02/17/2019 11:32 AM EDT Acquired hemolytic anemia documented in this encounter Results * Due to [place] [employer] law, this organization might not be sharing negative HIV tests. * (ABNORMAL) CBC INCLUDES DIFFERENTIAL AND PLATELET COUNT (02/17/2019 11:32 AM EDT) WBC 9.1 3.8 - 10.8 K/uL [facility] Neutrophils # 4.8 1.5 - 7.8 K/uL [facility] Immature Granulocytes # 0.1 0.0 - 0.1 K/uL [facility] Lymphocytes # 3.4 0.9 - 3.9 K/uL [facility] Monocytes # 0.6 0.2 - 1.0 K/uL [facility] Eosinophils # 0.2 0.0 - 0.5 K/uL [facility] Basophils # 0.0 0.0 - 0.2 K/uL [facility] Neutrophils % 52.7 % [facility] Immature Granulocytes % 0.70 % [facility] Lymphocytes % 37.8 % [facility] Monocytes % 6.5 % [facility] Eosinophils % 1.9 % [facility] Basophils % 0.4 % [facility] RBC 3.12(L) 4.20 - 5.80 M/uL [facility] Hemoglobin 9.8(L) 13.2 - 17.1 g/dL [facility] Hematocrit 32.5(L) 38.5 - 50.0 % [facility] MCV 104.2(H) 80.0 - 100.0 fl [facility] MCH 31.4 27.0 - 33.0 pg [facility] MCHC 30.2(L) 32.0 - 36.0 g/dL [facility] RDW 16.0(H) 11.0 - 15.0 % [facility] PLT 385 140 - 400 K/uL [facility] 02/17/2019 11:3 2 AM EDT 02/17/2019 11:32 AM EDT Narrative [facility] - 02/17/2019 12:04 PM EDT Patient's primary care provider is: N/A Call to [facility]ckay Testing performed at: [facility], [address] [place] [address], [id number], Multimedia Manager: Bairon Kevin MD us Prince Owens MD LAB SAME DAY RESULT Final Result [address] [address] DIRECTOR Bairon Kevin MD documented in this encounter Visit Diagnoses Diagnosis Acquired hemolytic anemia (HCC) Acquired hemolytic anemia, unspecified documented in this encounter Care Teams Automotive Sales Professional Relationship Specialty Start Date End Date Manoj Agudelo I [address] [address] [place] [address] PCP - General Family Medicine 02/05/18 Prince Owens MD [address] [place] [address] Primary Hem Onc Provider Hematology/Oncology 04/18/25 documented as of this encounter
--- OUTSIDE RECORDS SUMMARY | 2025-07-08 14:33 | XMS_ITS | Encounter Summary ---
Author Organization [facility] Address 5 [place] [address] Care Team Providers Care Audio Director Name Role Phone Manoj Agudelo I Primary Care Provider [phone]- [phone] Prince Owens MD Unavailable [phone] Encounter Details Date Type Department Care Team ([facility] Contact Info) Description 08/05/2023 Orders Only [facility] Hematology/Oncology [address] [place] [phone] Prince Owens MD [address] [place] [address] Social History Tobacco Use Types Packs/Day Years [...] Care Team ([facility] Contact Info) Description 07/19/2025 9:00 AM EDT Office Visit [facility] Hematology/Oncology [address] [place] [phone] Prince Owens MD 5 [place] [address] R/S from 8-28 due to mother passing away 11/18/2025 2:00 PM EST Office Visit [facility] Dermatology 5 [place] [phone] Iván Guajardo MD 5 [place] [address] Return in about 1 year (around 11/18/2025). documented as of this encounter Procedures * Due to [place] [employer] law, this organization might not be sharing negative HIV tests. Procedure Name Priority Date/Time Associated Diagnosis Comments COMPREHENSIVE METABOLIC PANEL WITH GFR Routine 08/29/2023 9:57 AM EDT Acquired hemolytic anemia documented in this encounter Results * Due to [facility] law, this organization might not be sharing negative HIV tests. * (ABNORMAL) COMPREHENSIVE METABOLIC PANEL WITH GFR (08/29/2023 9:57 AM EDT) Glucose 131(H) 65 - 99 [...] 135 - 146 mmol/L [facility] Potassium 4.7 3.5 - 5.3 mmol/L [facility] Chloride [...] 28 9 - 46 U/L [facility] 08/29/2023 9:57 AM EDT 08/29/2023 3:56 PM EDT Narrative [facility] - 08/29/2023 7:19 PM EDT Please note that this estimated [...] needs for GFR calculation. Resulting Agency Comment [id number] us Prince Owens MD LABORATORY Final Resu lt [facility] [address] [place] [address] documented in this encounter Visit Diagnoses Diagnosis Acquired hemolytic anemia (HCC) Acquired hemolytic anemia, unspecified documented in this encounter Care Teams Audio Director Relationship Specialty Start Date End Date Manoj Agudelo I [address] [address] [place] [phone] PCP - General Family Medicine 02/05/18 Prince Owens MD [address] [place] [address] Primary Hem Onc Provider Hematology/Oncology 04/18/25 documented as of this encounter
--- OUTSIDE RECORDS SUMMARY | 2025-07-08 14:33 | XMS_ITS | Encounter Summary ---
Author Organization [facility] Address [address] [place] [address] Care Team Providers Care Line Rider Name Role Phone Manoj Agudelo I Primary Care Provider [phone]- [phone] Prince Owens MD Unavailable [phone] Encounter Details Date Type Department Care Team (Late st Contact Info) Description 08/01/2023 Orders Only [facility] Hematology/Oncology [address] [place] [address] Prince Owens MD [address] [place] [address] Social History Tobacco Use Types Packs/Day Years [...] Encounter Note - Prince Owens MD - 08/01/2023 12:25 PM EDT Notified patient of results via Spendjit message. documented in this encounter Plan of Treatment Upcoming Encounters Date Type Department Care Team (Late st Contact Info) Description 07/19/2025 9:00 AM EDT Office Visit [facility] Hematology/Oncology [address] [place] [address] Prince Owens MD [address] [place] [address] R/S from 8- due to mother passing away 11/18/2025 2:00 PM EST Office Visit [facility] Dermatology 5 [place] [phone] Iván Guajardo MD 5 [place], [place] [phone] Return in about 1 year (around 11/18/2025). documented as of this encounter Procedures * Due to [facility] law, this organization might not be sharing negative HIV tests. Procedure Name Priority Date/Time Associated Diagnosis Comments CBC INCLUDES DIFFERENTIAL AND PLATELET COUNT STAT (All results called to provider) 08/01/2023 12:25 PM EDT Acquired hemolytic anemia documented in this encounter Results * Due to [facility] law, this organization might not be sharing negative HIV tests. * (ABNORMAL) CBC INCLUDES DIFFERENTIAL AND PLATELET COUNT (08/01/2023 12:25 PM EDT) WBC 7.2 3.8 - 10.8 Thousand/u L [facility] RBC 3.41(L) 4.20 - 5.80 Million/uL [facility] Hemoglobin 11.0(L) 13.2 - 17.1 g/dL [facility] Hematocrit 35.3(L) 38.5 - 50.0 % [facility] MCV 103.5(H) 80.0 - 100.0 fL [facility] MCH 32.3 27.0 - 33.0 pg [facility] MCHC 31.2(L) 32.0 - 36.0 g/dL [facility] RDW 14.9 11.0 - 15.0 % [facility] PLT 221 140 - 400 Thousand/u L [facility] MPV 9.6 7.5 - 12.5 fL [facility] Neutrophils # 5846 1500 - 7800 cells/uL [facility] Lymphocytes # 1008 850 - 3900 cells/uL [facility] Monocytes # 302 200 - 950 cells/uL [facility] Eosinophils # 43 15 - 500 cells/uL [facility] Basophils # 0 0 - 200 cells/uL [facility] Neutrophils % 81.2 % [facility] Lymphocytes % 14.0 % [facility] Monocytes % 4.2 % [facility] Eosinophils % 0.6 % [facility] Basophils % 0.0 % [facility] 08/01/2023 12:2 5 PM EDT 08/01/2023 2:00 PM EDT us Prince Owens MD LAB SAME DAY RESULT Final Result Performing Organization Address City/State/[facility] Co de Phone Number [facility] [address] [place] [address] documented in this encounter Visit Diagnoses Diagnosis Acquired hemolytic anemia (HCC) Acquired hemolytic anemia, unspecified documented in this encounter Care Teams Line Rider Relationship Specialty Start Date End Date Manoj Agudelo I [address] [address] [place] [phone] PCP - General Family Medicine 02/05/18 Prince Owens MD [address] [place] [address] Primary Hem Onc Provider Hematology/Oncology 04/18/25 documented as of this encounter
--- OUTSIDE RECORDS SUMMARY | 2025-07-08 14:33 | XMS_ITS | Encounter Summary ---
Author Organization [facility] Address [address] [place] [address] Care Team Providers Care Sports Psychologist Name Role Phone Manoj Agudelo I Primary Care Provider [phone]- [phone] Prince Owens MD Unavailable [phone] Encounter Details Date Type Department Care Team (Late st Contact Info) Description 08/05/2023 Orders Only [facility] Hematology/Oncology [address] [place] [address] La Nena Welch, RN [address] [place] [address] Social History Tobacco Use Types Packs/Day Years [...] Encounter Note - Prince Owens MD - 08/05/2023 2:53 PM EDT Notified patient of results via [employer] message. documented in this encounter Plan of Treatment Upcoming Encounters Date Type Department Care Team (Late st Contact Info) Description 07/19/2025 9:00 AM EDT Office Visit [facility] Hematology/Oncology [address] [place] [phone] Prince Owens MD [address] [place] [address] R/S from 8-28 due to mother passing away 11/18/2025 2:00 PM EST Office Visit [facility] Dermatology [address] [place] [phone] Iván Guajardo MD [address] [place], [place] [phone] Return in about 1 year (around 11/18/2025). Pending Results Name Type Priority Associated Diagnoses Date /Time COMPREHENSIVE METABOLIC PANEL WITH GFR Lab Routine Acquired hemolytic anemia 08/05/2023 2:53 PM EDT documented as of this encounter Procedures * Due to [place] [employer] law, this organization might not be sharing negative HIV tests. Procedure Name Priority Date/Time Associated Diagnosis Comments CBC INCLUDES DIFFERENTIAL AND PLATELET COUNT Routine 08/05/2023 2:53 PM EDT Acquired hemolytic anemia LACTATE DEHYDROGENASE (LDH), SERUM Routine 08/05/2023 2:53 PM EDT Acquired hemolytic anemia BILIRUBIN, TOTAL, SERUM (ADULT) Routine 08/05/2023 2:53 PM EDT Acquired hemolytic anemia COMPREHENSIVE METABOLIC PANEL WITH GFR Routine 08/05/2023 2:53 PM EDT Acquired hemolytic anemia documented in this encounter Results * Due to [place] [employer] law, this organization might not be sharing negative HIV tests. * (ABNORMAL) CBC INCLUDES DIFFERENTIAL AND PLATELET COUNT (08/05/2023 2:53 PM EDT) WBC 9.9 3.8 - 10.8 Thousand/u L [facility] RBC 3.71(L) 4.20 - 5.80 Million/uL [facility] Hemoglobin 12.4(L) 13.2 - 17.1 g/dL [facility] Hematocrit 36.6(L) 38.5 - 50.0 % [facility] MCV 98.7 80.0 - 100.0 fL [facility] MCH 33.4(H) 27.0 - 33.0 pg [facility] MCHC 33.9 32.0 - 36.0 g/dL [facility] RDW 12.9 11.0 - 15.0 % [facility] PLT 268 140 - 400 Thousand/u L [facility] MPV 9.9 7.5 - 12.5 fL [facility] Neutrophils # 8465(H) 1500 - 7800 cells/uL [facility] Lymphocytes # 1129 850 - 3900 cells/uL [facility] Monocytes # 267 200 - 950 cells/uL [facility] Eosinophils # 30 15 - 500 cells/uL [facility] Basophils # 10 0 - 200 cells/uL [facility] Neutrophils % 85.5 % [facility] Lymphocytes % 11.4 % [facility] Monocytes % 2.7 % [facility] Eosinophils % 0.3 % [facility] Basophils % 0.1 % [facility] 08/05/2023 2:53 PM EDT 08/06/2023 1:05 AM EDT Narrative Resulting Agency Comment [id number] Prince Owens MD LAB SAME DAY RESULT Final Result Performing Organization Address City/State/[facility] Co de Phone Number [facility] [address] [place] [address] * LACTATE DEHYDROGENASE (LDH), SERUM (08/05/2023 2:53 PM EDT) Lactate dehydrogenase 163 120 - 250 U/L [facility] 08/05/2023 2:53 PM EDT 08/06/2023 1:05 AM EDT Narrative Resulting Agency Comment [id number] Prince Owens MD LABORATORY Final Resu lt Performing Organization Address City/[facility] Co de Phone Number [facility] [address] [place] [address] * (ABNORMAL) BILIRUBIN, TOTAL, SERUM (ADULT) (08/05/2023 2:53 PM EDT) Bilirubin Total 2.5(H) 0.2 - 1.2 mg/dL [facility] 08/05/2023 2:53 PM EDT 08/06/2023 1:05 AM EDT Narrative Resulting Agency Comment [id number] us Prince Owens MD LAB SAME DAY RESULT Final Result [facility] [address] [place] [address] documented in this encounter Visit Diagnoses Diagnosis Acquired hemolytic anemia (HCC) Acquired hemolytic anemia, unspecified documented in this encounter Care Teams Sports Psychologist Relationship Specialty Start Date End Date Manoj Agudelo I [address] [address] [place] [address] PCP - General Family Medicine 02/05/18 Prince Owens MD [address] [place] [address] Primary Hem Onc Provider Hematology/Oncology 04/18/25 documented as of this encounter
--- OUTSIDE RECORDS SUMMARY | 2025-07-08 14:34 | XMS_ITS | Encounter Summary ---
Author Organization [facility] Address [address] [place] [address] Care Team Providers Care College Archivist Name Role Phone Manoj Agudelo I Primary Care Provider [phone] Prince Owens MD Unavailable [phone] Encounter Details Date Type Department Care Team (Late st Contact Info) Description 06/16/2025 Results Follow-Up [facility] Hematology Oncology [address] [place] [address] Prince Owens MD [address] [place], [place] [phone] COMPREHENSIVE METABOLIC PANEL WITH GFR, LACTATE DEHYDROGENASE [...] Encounter Note - Prince Owens MD - 06/16/2025 5:35 PM EDT Results normal/stable. I have notified the patient via Piazzahart. documented in this encounter Plan of Treatment Upcoming Encounters Date Type Department Care Team (Late st Contact Info) Description 07/19/2025 9:00 AM EDT Office Visit [facility] Hematology/Oncology [address] [place] [phone] Prince Owens MD [address] [place] [address] R/S from 8-28 due to mother passing away 11/18/2025 2:00 PM EST Office Visit [facility] Dermatology [address] [place] [phone] Iván Guajardo MD [address] [place] [address] Return in about 1 year (around 11/18/2025). documented as of this encounter Visit Diagnoses Not on filedocumented in this encounter Care Teams College Archivist Relationship Specialty Start Date End Date Manoj Agudelo I [address] [address] [place] [phone] PCP - General Family Medicine 02/05/18 Prince Owens MD [address] [place] [address] Primary Hem Onc Provider Hematology/Oncology 04/18/25 documented as of this encounter
--- OUTSIDE RECORDS SUMMARY | 2025-07-08 14:34 | XMS_ITS | Encounter Summary ---
Author Organization [facility] Address [address] [place] [address] Phone Care Team Providers Care Paperhanger Assistant Name Role Phone Manoj Agudelo MD Primary Care Provider Prince Owens MD Unavailable [phone] Encounter Details Date Type Department Care Team (Late st Contact Info) Description 01/19/2018 Procedure Pass DF IMG OUTSIDE IMG [address] [place] [address] Social History Tobacco Use Types Packs/Day Years [...] Description 07/26/2025 11:30 AM EDT Blood Draw [facility] for [facility] [address] [facility] [address] [facility], [address] [place] [address] Simon Mancia MD, PhD [address] [facility] [address] [place] [address] [email or web address] Simon Vargas MD, DPHIL [address] [place] [address] [email or web address] 07/26/2025 12:30 PM EDT Office Visit [facility] Center for Hematology [address] [facility] [facility], [address] [place] [address] Simon Rangel MD, DPHIL [address] [place] [address] [email or web address] documented as of this encounter Visit Diagnoses Not on filedocumented in this encounter Care Teams Paperhanger Assistant Relationship Specialty Start Date End Date Manoj Agudelo MD [address] [place] [address] [address] [place] [address] PCP - General Family Medicine 12/26/17 Prince Owens MD [address] [place] [address] [address] [place] [address] [email or web address] Referring Physician Internal Medicine 12/26/17 documented as of this encounter Additional Source Comments The information contained in this document represents components of the legal health record. It is not the complete legal health record.[facility]
--- OUTSIDE RECORDS SUMMARY | 2025-07-08 14:34 | XMS_ITS ---
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 BP on admission stable, SBP 110-137. -continue lisinopril -monitor BP Type 2 diabetes mellitus 11/11/2017 Overview (05/12/2018): Overview: Last Assessment & Plan: 11/11/2017 Patient with DM2 managed with Janumet 100-2000mg po qday -hold janumet -low ISS Malignant neoplasm of urinary bladder 03/21/2015 Overview (05/12/2018): Last Assessment & Plan: 11/11/2017 Patient with hx of bladder cancer stage 0, followed by Dr. Mora, and finished treatment with BCG about 1 year ago. UA negative for hematuria. -not an active issue Current Treatment and Therapy Plans No current plan information found. Past Treatment and Therapy Plans
--- OUTSIDE RECORDS SUMMARY | 2025-07-08 14:34 | XMS_ITS | Encounter Summary ---
Author Organization [facility] Address [address] [place] [address] Care Team Providers Care Wax Room Supervisor Name Role Phone Manoj Agudelo I Primary Care Provider [phone] Prince Owens MD Unavailable [phone] Encounter Details Date Type Department Care Team (Late Contact Info) Description 06/14/2025 Orders Only [facility] [address] [place] [address] [phone] Suzanne Ring, RN [address] [place] [phone] Social History Tobacco Use Types Packs/Day Years [...] Description 07/19/2025 9:00 AM EDT Office Visit [facility] Hematology/Oncology [address] [place] [address] [phone] Prince Owens MD [address] [place] [phone] R/S from 8-28 due to mother passing away 11/18/2025 2:00 PM EST Office Visit [facility] [address] [place] [phone] Iván Guajardo MD [address] [place] [address] Return in about 1 year (around 11/18/2025). documented as of this encounter Procedures * Due to [place] [employer] law, this organization might not be sharing negative HIV tests. Procedure Name Priority Date/Time Associated Diagnosis Comments CBC (H/H, RBC, INDICES,WBC, PLT) Routine 06/14/2025 10:39 AM EDT Acquired hemolytic anemia (HCC) LACTATE DEHYDROGENASE (LDH), SERUM Routine 06/14/2025 10:39 AM EDT Acquired hemolytic anemia (HCC) COMPREHENSIVE METABOLIC PANEL WITH GFR Routine 06/14/2025 10:39 AM EDT Acquired hemolytic anemia (HCC) documented in this encounter Results * Due to [place] [employer] law, this organization might not be sharing negative HIV tests. * (ABNORMAL) CBC (H/H, RBC, INDICES,WBC, PLT) (06/14/2025 10:39 AM EDT) WBC 6.6 3.8 - 10.8 Thousand/ uL [facility] RBC 3.10(L) 4.20 - 5.80 Million/u L [facility] [...] 11.0 - 15.0 % [facility] PLT 211 140 - 400 Thousand/ uL [facility] MPV 9.7 7.5 - 12.5 fL [facility] 06/14/2025 10:3 9 AM EDT 06/14/2025 9:40 PM EDT Narrative Resulting Agency Comment [id number] us Prince Owens MD LAB SAME DAY RESULT Final Result Performing Organization Address [facility] Co de Phone Number [facility] [address] [place] [address] * LACTATE DEHYDROGENASE (LDH), SERUM (06/14/2025 10:39 AM EDT) Lactate dehydrogenase 186 120 - 250 U/L [facility] 06/14/2025 10:3 9 AM EDT 06/14/2025 9:40 PM EDT Narrative Resulting Agency Comment [id number] Prince Owens MD LABORATORY Final Resu lt Performing Organization Address [facility] de Phone Number [facility] [address] [place] [address] * (ABNORMAL) COMPREHENSIVE METABOLIC PANEL WITH GFR (06/14/2025 10:39 AM EDT) Glucose 173(H) 65 - 99 mg/dL [facility] Comment: [...] 15 9 - 46 U/L [facility] 06/14/2025 10:3 9 AM EDT 06/14/2025 9:40 PM EDT Narrative [facility] - 06/15/2025 11:01 AM EDT Please note that this estimated [...] needs for GFR calculation. Resulting Agency Comment [id number] us Prince Owens MD LABORATORY Final Resu lt Performing Organization Address City/State/[facility] Co de Phone Number [facility] [address] [place] [address] documented in this encounter Visit Diagnoses Diagnosis Acquired hemolytic anemia (HCC) Acquired hemolytic anemia, unspecified documented in this encounter Care Teams Wax Room Supervisor Relationship Specialty Start Date End Date Manoj Agudelo I [address] [place] [phone] [place] [phone] PCP - General Family Medicine 02/05/18 Prince Owens MD [address] [place] [phone] Primary Hem Onc Provider Hematology/Oncology 04/18/25 documented as of this encounter
--- OUTSIDE RECORDS SUMMARY | 2025-07-08 14:34 | XMS_ITS | Continuity of Care Document ---
Author Organization [facility] Address [address] [place] [address] Care Team Providers Care General Laborer Name Role Phone Manoj Agudelo I Primary Care Provider [phone] Prince Owens MD Unavailable [phone] Encounters Date Type Department Care Team Description 06/16/2025 Results Follow-Up [facility] Hematology Oncology [address] [place] [phone] Prince Owens MD COMPREHENSIVE METABOLIC PANEL WITH GFR, LACTATE DEHYDROGENASE (LDH), SERUM, CBC (H/H, RBC, INDICES,WBC, PLT) 06/15/2025 Patient Outreach [facility] Hematology/Oncol[facility] gy [address] [place] [phone] Suzanne Ring, RN Results (Prednisone ) 06/14/2025 Orders Only [facility] Infusion Clinic [address] [place] [phone] Suzanne Ring, RN 05/25/2025 Refill [facility] [address] [place] [phone] Prince Owens MD Refill Request 05/16/2025 Results Follow-Up [facility] Hematology Oncology [address] [place] [phone] Prince Owens MD COMPREHENSIVE METABOLIC PANEL WITH GFR, LACTATE DEHYDROGENASE (LDH), SERUM, CBC (H/H, RBC, INDICES,WBC, PLT) 05/12/2025 Patient Outreach [facility] [address] [place] [phone] Suzanne Ring, RN Results (Prednisone) 05/11/2025 [facility] Only [facility] [address] [place] [phone] Suzanne Ring RN 05/09/2025 Patient Outreach [facility] Infusion [facility] [address] [place] [phone] Suzanne Ring, RN Results (Prednisone taper) 05/05/2025 Results Follow-Up [facility] Hematology Oncology [address] [place] [phone] Prince Owens MD CBC (H/H, RBC, INDICES,WBC, PLT), COMPREHENSIVE METABOLIC PANEL WITH GFR, LACTATE DEHYDROGENASE (LDH), SERUM 05/04/2025 Orders Only [facility] [address] [place] [phone] Prince Owens MD 04/28/2025 Results Follow-Up [facility] Hematology/On[facility] gy [address] [place] [phone] Prince Owens MD CBC (H/H, RBC, INDICES,WBC, PLT) 04/28/2025 Patient Outreach [facility] Hematology Oncology [address] [place] [phone] Prince Owens MD Results (Prednisone taper) 04/27/2025 Orders Only [facility] Hematology/[facility] [address] [place] [phone] Prince Owens MD 04/22/2025 Results Follow-Up [facility] Hematology/[facility] gy [address] [place] [phone] Prince Owens MD CBC (H/H, RBC, INDICES,WBC, PLT), LACTATE DEHYDROGENASE (LDH), SERUM, COMPREHENSIVE METABOLIC PANEL WITH GFR 04/21/2025 Patient Outreach [facility] Hematology Oncology [address] [place] [phone] Kay Chilel, SERA Results (Prednisone Taper) 04/20/2025 Orders Only [facility] Hematology/[facility] [address] [place] [phone] Prince Owens MD 04/14/2025 Results Follow-Up [facility] Hematology Oncology [address] [place] [address] Prince Owens MD CBC (H/H, RBC, INDICES,WBC, PLT), COMPREHENSIVE METABOLIC PANEL WITH GFR, LACTATE DEHYDROGENASE (LDH), SERUM 04/14/2025 Patient Outreach [facility] Hematology/On[facility] gy [address] [place] [phone] Reza Light RN Results (Prednisone taper) 04/13/2025 Orders Only [facility] Hematology/On[facility] gy [address] [place] [phone] Prince Owens MD 04/07/2025 Results Follow-Up [facility] Hematology Oncology [address] [place] [phone] Prince Owens MD CBC (H/H, RBC, INDICES,WBC, PLT), LACTATE DEHYDROGENASE (LDH), SERUM, COMPREHENSIVE METABOLIC PANEL WITH GFR 04/07/2025 Patient Outreach [facility] Hematology/On[facility] gy [address] [place] [phone] Reza Light RN Results (Prednisone taper) 04/06/2025 Orders Only [facility] Hematology/On[facility] gy [address] [place] [phone] Prince Owens MD 04/01/2025 Patient Outreach [facility] Hematology/Oncolo gy [address] [place] [phone] Kay Chilel, SERA Results (Prednisone Taper) 04/01/2025 Refill [facility] Hematology[facility] gy [address] [place] [address] Prince Owens MD Refill Request 04/01/2025 Orders Only [facility] Hematology/[facility] [address] [place] [address] Prince Owens MD 03/30/2025 Orders Only [facility]ematology[facility] [address] [place] [address] Prince Owens MD 03/29/2025 Refill [facility] [address] [place] [address] Prince Owens MD Refill Request 03/29/2025 Telephone [facility] [address] [place] [address] Rima Trujillo RN Treatment Plan 03/28/2025 Telephone [facility] Night Triage [address] [place] [phone] Manoj Agudelo I Medication Problem 03/28/2025 Telephone [facility] Night Triage [address] [place] [phone] Manoj Agudelo I Other 03/28/2025 6:45 PM EDT Radiology [address] [address] SOB (shortness of breath) 03/28/2025 4:45 PM EDT Office Visit [address] [address] Howard Boogie MD Other acquired hemolytic anemias (HCC) (Primary Dx); Viral URI with cough; Abnormal RBC 03/28/2025 3:45 PM EDT Office Visit [address] [phone] Yasmin Alicea PA SOB (shortness of breath) (Primary Dx); Symptomatic anemia; Upper respiratory tract infection, unspecified type 02/28/2025 Orders Only [facility] Hematology/[facility] [address] [place] [address] Prince Owens MD 02/15/2025 Refill [facility]ology[facility] [address] [place] [address] Prince Owens MD Refill Request 02/07/2025 Orders Only [facility] Hematology[facility] [address] [place] [address] Prince Owens MD 02/07/2025 Orders Only [facility] Hematology[facility] [address] [place] [address] La Nena Welch, SERA 01/17/2025 Orders Only [facility] Hematology/[facility] [address] [place] [address] La Nena Welch RN 01/17/2025 Orders Only [facility] Hematology/[facility] [address] [place] [address] Prince Owens MD 01/03/2025 Orders Only [facility] Hematology[facility] [address] [place] [address] Prince Owens MD 12/31/2024 9:20 AM EST Office Visit [facility]ematology[facility] [address] [place] [address] Prince Owens MD Acquired hemolytic anemia (Primary Dx); SOB (shortness of breath) 12/19/2024 Refill [facility] [address] [place] [address] Prince Owens MD E-prescribing Refill Request 12/13/2024 Orders Only [facility] Hematology/[facility] [address] [place] [address] Prince Owens MD 11/24/2024 Orders Only [facility] Hematology[facility] [address] [place] [address] Prince Owens MD 11/18/2024 1:30 PM EST Office Visit [facility] Dermatology [address] [place] [phone] Iván Guajardo MD Nelson angioma (Primary Dx); Seborrheic keratosis; Skin tags, multiple acquired; Epidermal cyst; Melanocytic nevi of trunk; Personal history of skin cancer; Skin cancer screening 11/09/2024 Orders Only [facility] Hematology[facility] [address] [place] [address] Prince Owens MD 10/25/2024 Orders Only [facility] Hematology/On[facility] gy [address] [place] [address] Prince Owens MD 10/20/2024 Refill [facility] Hematology[facility] [address] [place] [phone] Prince Owens MD E-prescribing Refill Request 10/11/2024 Orders Only [facility]ematology[facility] [address] [place] [address] Prince Owens MD 09/28/2024 9:00 AM EST [facility] Visit [facility] Hematology[facility]On[facility] gy [address] [place] [address] Prince Owens MD Acquired hemolytic anemia (Primary Dx); SOB (shortness of breath) 09/27/2024 Orders Only [facility] Hematology/[facility] [address] [place] [address] Prince Owens MD 08/31/2024 Orders Only [facility] Hematology/Oncolo gy [address] [place] [address] La Nena Welch RN 08/26/2024 Orders Only [facility] Hematology/[facility] [address] [place] [phone] Prince Owens MD 08/23/2024 Refill [facility] [address] [place] [phone] Prince Owens MD Refill Request 08/23/2024 Telephone [facility]ematology[facility] [address] [place] [phone] Prince Owens MD Patient Questions 08/17/2024 Orders Only [facility] Hematology/[facility] [address] [place] [phone] La Nena Welch RN 08/10/2024 Orders Only [facility] Hematology/[facility] [address] [place] [address] Prince Owens MD 08/02/2024 Orders Only [facility] Hematology/[facility] [address] [place] [phone] L aNena Welch RN 07/27/2024 Orders Only [facility] Hematology/[facility] [address] [place] [phone] Prince Owens MD 07/19/2024 Orders Only [facility] Hematology/[facility] [address] [place] [address] La Nena Welch RN 07/12/2024 Orders Only [facility] Hematology/[facility] [address] [place] [phone] Prince Owens MD 06/29/2024 Orders Only [facility] Hematology/[facility] gy [address] [place] [address] La Nena Welch RN 06/22/2024 Orders Only [facility] Hematology/On[facility] gy [address] [place] [phone] La Nena Welch, SERA 06/15/2024 Orders Only [facility] Hematology/[facility] [address] [place] [address] La Nena Welch, SERA 06/14/2024 Orders Only [facility]ematology[facility] [address] [place] [address] La Nena Welch, SERA 06/14/2024 Refill [facility]ematology[facility] [address] [place] [phone] La Nena Welch, RN Refill Request 06/14/2024 Telephone [facility] Hematology/[facility] [address] [place] [phone] La Nena Welch, SERA Patient Questions 06/04/2024 Orders Only [facility] Hematology/[facility] [address] [place] [phone] Prince Owens MD 05/21/2024 Orders Only [facility] Hematology/[facility] [address] [place] [address] Prince Owens MD 05/07/2024 10:20 AM EDT Office Visit [facility] Hematology[facility] [address] [place] [address] Prince Owens MD Acquired hemolytic anemia (Primary Dx); SOB (shortness of breath) 04/29/2024 Orders Only [facility] Hematology/On[facility] [address] [place] [address] Prince Owens MD 04/29/2024 Orders Only [facility] Hematology/[facility] [address] [place] [address] Prince Owens MD 04/29/2024 Orders Only [facility] Hematology/On[facility] [address] [place] [address] Tori Ruiz RN 04/10/2024 Orders Only [facility] Hematology/[facility] [address] [place] [address] Prince Owens MD 03/27/2024 Orders Only [facility] Hematology/[facility] [address] [place] [address] Prince Owens MD 03/12/2024 9:40 AM EDT [facility] Hematology[facility]On[facility] [address] [place] [address] Prince Owens MD Acquired hemolytic anemia (Primary Dx); SOB (shortness of breath); 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; 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) 03/09/2024 Orders Only [facility] Hematology/Oncol[facility] gy [address] [place] [address] Prince Owens MD 02/24/2024 Minor Procedure/Test NON FC SA [address] [address] Lev Akers MD Discharge Disposition: Discharged to home or self care (routine discharge) 02/24/2024 Refill [facility]ematology/[facility] [address] [place] [address] Lev Akers MD Refill Request 02/24/2024 Telephone [facility] Hematology/[facility] [address] [place] [address] Lev Aekrs MD Anemia 02/23/2024 Orders Only [facility] Hematology/[facility] [address] [place] [address] Prince Owens MD 02/07/2024 Orders Only [facility] Hematology/[facility] [address] [place] [address] Prince Owens MD 01/24/2024 Orders Only [facility]ematology/[facility] [address] [place] [address] Prince Owens MD 01/23/2024 Orders Only [facility]ematology/[facility] [address] [place] [address] Prince Owens MD 12/29/2023 11:20 AM EST Office Visit [facility] Hematology[facility] [address] [place] [address] Prince Owens MD Acquired hemolytic anemia (Primary Dx); SOB (shortness of breath) 12/26/2023 Orders Only [facility] Hematology/On[facility] [address] [place] [address] Prince Owens MD 11/28/2023 Orders Only [facility] Hematology/[facility] [address] [place] [address] Prince Owens MD 11/06/2023 Orders Only [facility] Hematology/On[facility] [address] [place] [address] Prince Owens MD 10/17/2023 Orders Only [facility] Hematology/On[facility] [address] [place] [address] Prince Owens MD 10/14/2023 8:20 AM EST Office Visit [facility] Hematology/On[facility] [address] [place] [address] Prince Owens MD Acquired hemolytic anemia (Primary Dx); 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; SOB (shortness of breath) 10/03/2023 Telephone [facility] Hematology/On[facility] [address] [place] [address] Prince Owens MD Results 10/02/2023 Orders Only [facility] Hematology/[facility] [address] [place] [address] Prince Owens MD 09/22/2023 Orders Only [facility] Hematology/Oncol[facility] [address] [place] [address] Prince Owens MD 09/15/2023 Orders Only [facility] Hematology/On[facility] [address] [place] [address] Prince Owens MD 09/11/2023 Orders Only [facility] Hematology/[facility] [address] [place] [address] Prince Owens MD 09/11/2023 Telephone [facility] Hematology/[facility] [address] [place] [address] La Nena Welch RN Labs/orders 09/11/2023 Orders Only [facility] Hematology/[facility] [address] [place] [address] Prince Owens MD 09/01/2023 Orders Only [facility] Hematology/[facility] [address] [place] [address] Prince Owens MD 08/21/2023 4:30 PM EDT Office Visit [facility] Dermatology [address] [place] [phone] Iván Guajardo MD Seborrheic keratosis (Primary Dx); Nelson angioma; Skin tags, multiple acquired; Personal history of skin cancer 08/15/2023 Orders Only [facility] Hematology/[facility] [address] [place] [address] La Nena Welch RN 08/13/2023 Orders Only [facility] Hematology/[facility] [address] [place] [address] La Nena Welch, RN 08/11/2023 Orders Only [facility] Hematology/[facility] [address] [place] [address] La Nena Welch, SERA 08/08/2023 Orders Only [facility]ematology/[facility] [address] [place] [address] La Nena Welch, SERA 08/07/2023 Telephone [facility] Hematology/[facility] [address] [place] [address] Nigel Trejo, SERA Results 08/05/2023 Orders Only [facility] Hematology/[facility] [address] [place] [address] Prince Owens MD 08/05/2023 Orders Only [facility]ematology/[facility] [address] [place] [phone] La Nena Welch, SERA 08/01/2023 Orders Only [facility] Hematology/[facility] [address] [place] [address] Prince Owens MD 07/25/2023 Telephone [facility] Hematology/[facility] [address] [place] [address] La Nena Welch, RN Other 07/24/2023 Telephone [facility]ematology[facility] [address] [place] [address] Prince Owens MD Results 07/24/2023 Orders Only [facility]ology[facility] [address] [place] [address] Prince Owens MD 07/24/2023 Telephone [facility]ematology[facility] [address] [place] [address] Kay Chilel, SERA Results 07/23/2023 Telephone [facility] Night Triage [address] [place] [address] Manoj Agudelo I 07/23/2023 Telephone [facility] Night Triage [address] [place] [address] Manoj Agudelo I Results (Critical lab result) 07/22/2023 2:20 PM EDT Office Visit [facility] Hematology/[facility] [address] [place] [phone] Prince Owens MD Acquired hemolytic anemia (Primary Dx); 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 07/21/2023 Telephone [facility] In[facility] [address] [place] [phone] Rosa Kemp, SERA Covid 05/30/2023 Orders Only [facility] Hematology/[facility] [address] [place] [phone] Prince Owens MD 05/30/2023 Telephone [facility] Hematology/[facility] [address] [place] [address] La Nena Welch RN Labs/orders 05/30/2023 Orders Only [facility] Hematology/[facility] [address] [place] [address] Prince Owens MD 05/05/2023 Telephone [facility]ematology/[facility] [address] [place] [address] Prince Owens MD Other 05/05/2023 Patient Outreach [facility] Hematology/On[facility] [address] [place] [address] Prince Owens MD 04/30/2023 Orders Only [facility] Hematology/On[facility] [address] [place] [address] Prince Owens MD 04/25/2023 Orders Only [facility]ematology/[facility] [address] [place] [address] Prince Owens MD 02/12/2023 2:40 PM EDT Office Visit [facility]ology[facility] [address] [place] [address] Prince Owens MD Acquired hemolytic anemia (Primary Dx); 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 02/06/2023 Orders Only [facility] Hematology/[facility] [address] [place] [address] Prince Owens MD 01/14/2023 Consult (Initial) HEM ONC UNSPECIFIED Simon Rangel 11/26/2022 Orders Only [facility] [address] [place] [address] Prince Owens MD 11/26/2022 8:40 AM EST Office Visit [facility]ology[facility] [address] [place] [phone] Prince Owens MD Acquired hemolytic anemia (Primary Dx); 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); 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 11/08/2022 Telephone [facility]ematology[facility] [address] [place] [address] Klever Rosas MD Abstract 11/08/2022 9:00 AM EST Infusion [facility] [address] [place] [phone] Acquired hemolytic anemia (Primary Dx) 10/03/2022 Orders Only [facility] Hematology/[facility] [address] [place] [address] Prince Owens MD 09/12/2022 9:00 AM EST Nurse Visit [facility] [address] [place] [address] 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) (Primary Dx); Malignant neoplasm of urinary bladder, unspecified site 09/10/2022 Orders Only [facility] Hematology/Oncolo gy [address] [place] [address] Prince Owens MD Medications 09/09/2022 Telephone [facility] Hematology/On[facility] gy [address] [place] [address] Rula Ruelas, SERA Other 08/21/2022 3:40 PM EDT Office Visit [facility] Hematology/Oncolo gy [address] [place] [address] Prince Owens MD Acquired hemolytic anemia (Primary Dx); 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) 08/21/2022 4:30 PM EDT Office Visit [facility] Dermatology [address] [place] [phone] Iván Guajardo MD Seborrheic keratosis (Primary Dx); Personal history of skin cancer 08/19/2022 Orders Only [facility] Hematology/Oncol[facility] gy [address] [place] [address] Prince Owens MD 07/02/2022 Consult (Initial) HEM ONC UNSPECIFIED Simon Rangel 04/02/2022 Orders Only [facility] Hematology/On[facility] gy [address] [place] [address] Prince Owens MD 04/02/2022 1:20 PM EDT Office Visit [facility] Hematology/Oncolo gy [address] [place] [address] Prince Owens MD Acquired hemolytic anemia (Primary Dx) 01/30/2022 3:40 PM EDT [facility] H[facility] [address] [place] [address] Prince Owens MD Acquired hemolytic anemia (Primary Dx); SOB (shortness of breath); 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 01/25/2022 Orders Only [facility] [address] [place] [phone] Prince Owens MD 12/25/2021 Orders Only [facility] Hematology/On[facility] [address] [place] [address] Prince Owens MD 12/11/2021 Orders Only [facility]ology/[facility] [address] [place] [address] Prince Owens MD 11/23/2021 Telephone [facility] [address] [place] [address] Prince Owens MD Patient Questions 11/23/2021 Orders Only [facility] [address] [place] [phone] Prince Owens MD 11/21/2021 Telephone [facility]ology[facility] [address] [place] [phone] Rula Ruelas RN Labs/orders 11/16/2021 Patient Outreach [facility] [address] [place] [address] Bridgette Bahena LCSW Care Coordination Communication 11/15/2021 Telephone [facility] Pulmonary [address] [facility] [address] [place] [address] Kathya Cooper, DO Patient Questions 11/14/2021 Telephone [facility] [address] [place] [address] Prince Owens MD Labs/orders 11/13/2021 Orders Only NON FC [facility] [address] [place] [address] [facility], Unknown Provider 11/12/2021 Professional Billing [facility] Pulmonary [address] [facility] [address] [place] [address] Kathya Cooper, Acute respiratory failure due to COVID-19 11/06/2021 Orders Only NON FC [facility] [address] [place] [address] Rodrigo Carlin MD 11/05/2021 Professional Billing [facility] Infectious Disease [address] [facility] [address] [place] [address] Julian Rob MD COVID-19 virus infection; Pneumonia due to methicillin susceptible Staphylococcus aureus (MSSA), unspecified laterality, unspecified part of lung; Pulmonary embolism, bilateral; Hypoxia 11/04/2021 Orders Only NON FC [facility] [address] [place] [address] [facility], Unknown Provider 11/03/2021 Orders Only NON FC [facility] [address] [place] [address] Domenico Greco MD 11/03/2021 Orders Only NON FC [facility] [address] [place] [address] Kathya Cooper DO 11/01/2021 [facility] Pul[facility] [address] [facility] [address] [place] [address] Pauline Lyons MD 10/31/2021 Professional [facility] Pulmonary [address] [facility] [address] [place] [address] Pauline Lyons MD Acute respiratory failure due to COVID-19 10/31/2021 Telephone [facility]ology[facility] [address] [place] [phone] Prince Owens MD Other 10/23/2021 Patient Outreach [facility] [address] [place] [address] Bridgette Bahena LCSW Care Coordination Communication 10/22/2021 Professional Billing [facility] Pulmonary [address] [facility] [address] [place] [address] Chase Angel MD PE (pulmonary thromboembolism); Pneumonia due to COVID-19 virus; Pneumonia of left lung due to methicillin susceptible Staphylococcus aureus (MSSA), unspecified part of lung; Acute respiratory failure due to COVID-19 10/21/2021 Professional Billing [facility] Pulmonary [address] [facility] [address] [place] [address] Jl Burgess MD Acute respiratory disease due to COVID-19 virus; Pneumonia due to COVID-19 virus; Hospital-acquired pneumonia 10/20/2021 Hospital/Inpatient NON FC SA [facility] [address] [place] [address] [facility], Unknown Provider 10/20/2021 Professional Billing [facility] Pulmonary [address] [facility] [address] [place] [address] Jl Burgess MD Acute respiratory disease due to COVID-19 virus; Pneumonia due to COVID-19 virus; PE (pulmonary thromboembolism); Hospital-acquired pneumonia 10/18/2021 Professional [facility]illing [facility] Pulmonary [address] [facility] [address] [place] [address] Jl Burgess MD Acute respiratory disease due to COVID-19 virus; Pneumonia due to COVID-19 virus; PE (pulmonary thromboembolism); Hospital-acquired pneumonia 10/18/2021 Orders Only NON FC [facility] [address] [place] [address] Jl Burgess MD 10/17/2021 Telephone [facility] Hematology/Oncol[facility] gy [address] [place] [address] Prince Owens MD Labs Only 10/15/2021 Consult (Initial) NON FC [facility] [address] [place] [address] Klever Rosas MD 10/14/2021 Hospital/Inpatient NON FC [facility] [address] [place] [address] [facility], Unknown Provider 10/14/2021 Consult (Initial) NON FC [facility] [address] [place] [address] Kellie Hernández MD 10/13/2021 Orders Only NON FC [facility] [address] [place] [address] Nic Lamb MD 10/10/2021 Professional [facility] Pulmonary [address] [facility] [address] [place] [address] Pauline Lyons MD Acute respiratory disease due to COVID-19 virus; PE (pulmonary thromboembolism); Type 2 diabetes mellitus with hyperglycemia, unspecified whether group home insulin use 10/09/2021 Professional Billing [facility] Pulmonary Entrance C [address] [place] [address] Henok Hairston MD Acute respiratory failure with hypoxia 10/08/2021 Professional Billing [facility] Pulmonary Entrance C [address] [place] [address] Henok Hairston MD Acute respiratory failure with hypoxia 10/08/20[address] [facility] [address] [place] [address] Sv, Unknown Provider 10/06/2021 Professional [facility] Infectious Disease [address] [facility] [address] [place] [address] Julian Rob MD COVID-19 virus infection; Pneumonia of both lungs due to infectious organism, unspecified part of lung; Pulmonary embolism associated with COVID-19; Hypoxia 10/05/2021 Orders Only NON FC [facility] [address] [place] [address] Nic Lamb MD 09/30/2021 Hospital/Inpatient NON FC [facility] [address] [place] [address] Sv, Unknown Provider 09/28/2021 Professional [facility] Infectious Disease [address] [facility] [address] [place] [address] Jaycob Diaz MD COVID 09/27/2021 Orders Only NON FC [facility] [address] [place] [address] Sv, Unknown Provider 09/27/2021 Orders Only NON FC SA [facility] [address] [place] [address] Nic Lamb MD 09/27/2021 Professional [facility] Pulmonary [address] [facility] [address] [place] [address] Nic Lamb MD Acute hypoxemic respiratory failure; Pneumonia due to COVID-19 virus; Autoimmune hemolytic anemia; Pulmonary embolism, unspecified chronicity, unspecified pulmonary embolism type, unspecified whether acute cor pulmonale present; Acquired hemolytic anemia 09/26/2021 Orders Only NON FC SA [facility] [address] [place] [address] Nic Lamb MD 09/24/2021 Professional [facility] Pulmonary [address] [facility] [address] [place] [address] Nic Lamb MD Pneumonia due to COVID-19 virus; Acute hypoxemic respiratory failure; Autoimmune hemolytic anemia; Acquired hemolytic anemia 09/23/2021 Professional [facility] Pulmonary [address] [facility] [address] [place] [address] Jl Burgess MD Pneumonia due to COVID-19 virus; Acute hypoxemic respiratory failure; Altered mental status, unspecified altered mental status type; Autoimmune hemolytic anemia; Malignant neoplasm of urinary bladder, unspecified site 09/22/2021 Professional [facility] Infectious Disease [address] [facility] [address] [place] [address] Julian Rob MD COVID-19 virus infection; Hypoxia; Acquired hemolytic anemia; Pneumonia of both lungs due to infectious organism, unspecified part of lung 09/17/2021 Telephone [facility] Hematology/[facility] gy [address] [place] [phone] Prince Owens MD Patient Questions 09/16/2021 Hospital/Inpatient NON FC [facility] [address] [place] [address] Kathya Cooper DO 09/15/2021 Orders Only [facility] Hematology/[facility] gy 1 [facility] [address] [place] [phone] Prince Owens MD 08/22/2021 4:30 PM EDT Office Visit [address] [address] Iván Guajardo MD Seborrheic keratosis (Primary Dx); Epidermal cyst; Personal history of skin cancer; Skin tags, multiple acquired 08/16/2021 Orders Only [facility] Hematology/[facility] gy 1 [facility] [address] [place] [phone] Prince Owens MD 08/09/2021 Orders Only [facility] Hematology/[facility] gy [address] [address] Prince Owens MD 08/06/2021 Orders Only [facility] Hematology/[facility] gy [address] [address] Prince Owens MD 08/02/2021 Orders Only [facility] Hematology/[facility] gy [address] [place] [phone] Prince Owens MD 07/31/2021 3:40 PM EDT Office Visit [facility] Hematology/[facility] gy [address] [place] [phone] Prince Owens MD Acquired hemolytic anemia (Primary Dx); SOB (shortness of breath); 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) 07/30/2021 Orders Only [facility] Hematology/[facility] gy [address] [address] Prince Owens MD 07/27/2021 Orders Only [facility] Hematology/[facility] gy [address] [address] Prince Owens MD 01/23/2021 Travel 01/23/2021 3:40 PM EDT Office Visit [facility] Hematology/[facility] gy [address] [place] [address] Prince Owens MD Acquired hemolytic anemia (Primary Dx); SOB (shortness of breath); 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) 01/19/2021 Orders Only [facility] Hematology/[facility] gy 1 [facility] [address] [place] [address] Prince Owens MD 12/04/2020 Orders Only [facility] Hematology/Oncol[facility] gy 1 [facility] [address] [place] [phone] Prince Owens MD 10/17/2020 Orders Only [facility] Hematology/[facility] gy [address] [address] Prince Owens MD 09/08/2020 Travel 09/08/2020 3:15 PM EST Office Visit [facility] Dermatology [address] [place] [phone] Iván Guajardo MD Neoplasm of uncertain behavior of skin (Primary Dx) 08/24/2020 Travel 08/22/2020 Travel 08/22/2020 3:40 PM EDT [facility] [address] [address] Prince Owens MD Acquired hemolytic anemia (Primary Dx); SOB (shortness of breath) 08/18/2020 Orders Only [facility] Hematology/[facility] gy [address] [address] Prince Owens MD 06/23/2020 Travel 06/23/2020 3:15 PM EDT Office Visit [facility] Dermatology [address] [place] [phone] Iván Guajardo MD Basal cell carcinoma of trunk (Primary Dx) 06/13/2020 Telephone [facility] Hematology/[facility] gy [address] [address] Prince Owens MD Other 06/08/2020 Consult (Initial) UROLOGY UNSPECIFIED Ryan Palma MD 06/08/[address] [address] Iván Guajardo MD Results 06/07/2020 10:30 AM EDT Office Visit [address] [phone] Iván Guajardo MD Neoplasm of uncertain behavior of skin (Primary Dx) 05/23/2020 2:15 PM EDT Consult (Initial) [address] [phone] Iván Guajardo MD Photodermatitis (Primary Dx); Neoplasm of uncertain behavior of skin; Seborrheic keratosis 04/18/2020 Travel 04/18/2020 3:40 PM EDT Office Visit [facility] Hematology/[facility] gy [address] [address] Prince Owens MD Acquired hemolytic anemia; SOB (shortness of breath) 04/17/2020 Orders Only [facility] Hematology/[facility] gy [address] [address] Prince Owens MD 01/18/2020 Telephone [facility] Hematology/[facility] gy [address] [address] Prince Owens MD Appointment (3 MON F/U PER DR. OWENS) 12/28/2019 Consult (Initial) HEM ONC UNSPECIFIED Simon Rangel 11/29/2019 Orders Only [facility] Hematology/[facility] gy 1 [facility] [address] [place] [phone] Prince Owens MD 10/29/2019 Orders Only [facility] Hematology/[facility] gy [address] [address] Prince Owens MD 10/02/2019 Orders Only [facility] Hematology/[facility] gy [address] [place] [phone] Prince Owens MD 08/31/2019 3:20 PM EDT Office Visit [facility] Hematology/[facility] gy 1 [facility] [address] [place] [phone] Prince Owens MD Acquired hemolytic anemia (Primary Dx); SOB (shortness of breath) 08/29/2019 Orders Only [facility] [address] [facility] [address] [place] [phone] Prince Owens MD 07/30/2019 Orders Only [facility] Hematology/[facility] gy 1 [facility] [address] [place] [phone] Prince Owens MD 06/30/2019 Consult (Initial) UROLOGY UNSPECIFIED Ryan Palma MD 06/29/2019 Orders Only [facility] Hematology/[facility] gy 1 [facility] [address] [place] [phone] Prince Owens MD 04/13/2019 3:20 PM EDT Office Visit [facility] Hematology Oncology [address] [place] [address] Prince Owens MD Acquired hemolytic anemia (Primary Dx) 04/09/2019 Orders Only [facility] Hematology/[facility] gy 1 [facility] [address] [place] [phone] Prince Owens MD 02/25/2019 Telephone [facility] Hematology/[facility] gy 1 [facility] [address] [place] [phone] Evangelina Alanis, RN Other 02/24/2019 Orders Only [facility] Hematology/[facility] gy 1 [facility] [address] [place] [phone] Prince Owens MD 02/24/2019 Telephone [facility] Hematology/[facility] gy 1 [facility] [address] [place] [phone] Evangelina Alanis, RN Labs/orders 02/17/2019 Telephone [facility] Hematology/[facility] gy 1 [facility] [address] [place] [address] Prince Owens MD Labs/orders 02/17/2019 Orders Only [facility] Hematology/Oncol[facility] gy 1 [facility] [address] [place] [address] Prince Owens MD 02/11/2019 Orders Only [facility] Hematology/[facility] gy 1 [facility] [address] [place] [address] Prince Owens MD 02/11/2019 Orders Only [facility] Hematology/Oncol[facility] gy 1 [facility] [address] [place] [address] Prince Owens MD 02/10/2019 Orders Only [facility] Hematology/Oncol[facility] gy 1 [facility] [address] [place] [address] Prince Owens MD 02/09/2019 Orders Only NON FC SA [address] [address] Stalin Walden MD 02/09/2019 Orders Only [facility] Hematology/Oncol[facility] gy 1 [facility] [address] [place] [address] Prince Owens MD 02/09/2019 Telephone [facility] Hematology/[facility] gy 1 [facility] [address] [place] [address] Prince Owens MD Results 02/09/2019 Telephone [facility] Hematology/[facility] gy 1 [facility] [address] [place] [phone] Prince Owens MD Labs/orders 02/08/2019 Orders Only [facility] Hematology/Oncol[facility] gy 1 [facility] [address] [place] [address] Prince Owens MD 02/08/2019 Telephone [facility] Hematology/[facility] gy 1 [facility] [address] [place] [phone] Prince Owens MD Patient Questions 02/08/2019 Telephone [facility] Hematology/[facility] gy 1 [facility] [address] [place] [phone] Prince Owens MD Other 02/06/2019 Telephone [facility] [address] [place] [address] Suzanna Huber LPN Jaundice 02/06/2019 Orders Only [facility] Hematology/On[facility] gy 1 [facility] [address] [place] [phone] Prince Owens MD 01/18/2019 Orders Only [facility] Hematology/[facility] gy [address] [address] Prince Owens MD 12/25/2018 Orders Only [facility] Hematology/[facility] gy [address] [address] Prince Owens MD 12/24/2018 3:40 PM EST Office Visit [facility] Hematology/[facility] gy [address] [address] Prince Owens MD Malignant neoplasm of urinary bladder, unspecified site (Primary Dx); Urinary frequency; Acquired hemolytic anemia 12/12/2018 Orders Only [facility] Hematology/[facility] gy [address] [address] Prince Owens MD 11/27/2018 Orders Only [facility] Hematology/[facility] gy 1 [facility] [address] [place] [phone] Prince Owens MD 11/25/2018 9:00 AM EST Office Visit [facility] Hematology/On[facility] gy 1 [facility] [address] [place] [phone] Prince Owens MD Acquired hemolytic anemia (Primary Dx) 11/24/2018 Orders Only [facility] Hematology/[facility] gy 1 [facility] [address] [place] [phone] Evangelina Alanis, ESRA 11/24/2018 Telephone [facility] Hematology/[facility] gy 1 [facility] [address] [place] [phone] Evangelina Alanis, RN Other 11/24/2018 3:30 PM EST Consult (Initial) [facility] [address] [place] [phone] Vinicius Vargas DPM Primary osteoarthritis of both feet (Primary Dx); Acquired equinus deformity of both feet; Acquired hallux rigidus, unspecified laterality 11/23/2018 Orders Only [facility] Hematology/[facility] gy 1 [facility] [address] [place] [phone] Prince Owens MD 11/12/2018 Consult (Initial) UROLOGY UNSPECIFIED Ryan Palma MD 11/09/2018 Orders Only [facility] Hematology/[facility] gy 1 [facility] [address] [place] [phone] Prince Owens MD 10/05/2018 Orders Only [facility] Hematology/[facility] gy 1 [facility] [address] [place] [phone] Prince Owens MD 08/31/2018 Orders Only [facility] Hematology/On[facility] gy 1 [facility] [address] [place] [phone] Prince Owens MD 08/04/2018 3:00 PM EDT Office Visit [facility] Hematology/[facility] gy 1 [facility] [address] [place] [phone] Prince Owens MD Acquired hemolytic anemia (Primary Dx) 08/03/2018 Orders Only [facility] Hematology/[facility] gy 1 [facility] [address] [place] [phone] Prince Owens MD 07/07/2018 Orders Only [facility] Hematology/On[facility] gy 1 [facility] [address] [place] [phone] Prince Owens MD 06/18/2018 4:30 PM EDT Radiology [facility] [address] [place] [address] Acquired hemolytic anemia 06/11/2018 Telephone [facility] Hematology/[facility] gy 1 [facility] [address] [place] [phone] Kay Chilel, SERA Labs/orders 06/10/2018 Orders Only [facility] Hematology/On[facility] gy 1 [facility] [address] [place] [phone] Prince Owens MD 05/12/2018 Orders Only [facility] Hematology/[facility] gy [address] [address] Prince Owens MD 05/12/2018 11:40 AM EDT Office Visit [facility] Hematology/[facility] gy [address] [address] Prince Owens MD Acquired hemolytic anemia (Primary Dx) 05/05/2018 Orders Only [facility] Hematology/[facility] gy [address] [address] Prince Owens MD 04/13/2018 Consult (Initial) HEM ONC UNSPECIFIED Provider, Unknown 04/13/2018 Orders Only [facility] Hematology/On[facility] gy 1 [facility] [address] [place] [phone] Prince Owens MD 04/13/2018 Telephone [facility] Hematology/[facility] gy [address] [address] Prince Owens MD Patient Questions 02/09/2018 Telephone [facility] Hematology/[facility] gy 1 [facility] [address] [place] [phone] Prince Owens MD Results 02/07/2018 Orders Only [facility] Hematology/[facility] gy 1 [facility] [address] [place] [phone] Prince Owens MD 02/06/2018 Telephone [facility] Hematology/Oncol[facility] gy 1 [facility] [address] [place] [address] Prince Owens MD Other 02/05/2018 Telephone [facility] Hematology/Oncol[facility] gy 1 [facility] [address] [place] [address] Prince Owesn MD Other 03/06/1993 Nurse Visit NON FC SA NON FC Humphrey Mejía MD Health examination of defined subpopulation 01/09/1993 Nurse Visit NON FC SA NON FC Humphrey Mejía MD Health examination of defined subpopulation 12/05/1992 CPE - Comprehensive Physical Exam NON FC SA NON FC Humphrey Mejía MD Health examination of defined subpopulation Allergies Active Allergy Reactions Criticality Noted Date Comments Lovenox Other 11/08/2022 Hives Medications Folic Acid 800 MCG Tab Take 800 mcg by mouth daily. Active Glucose Blood (ONETOUCH VERIO) Strip None Entered 1 05/06/2018 Act cornelio Insulin Glargine (BASAGLAR KWIKPEN) 100 UNIT/ML Solution Pen-injector None Entered 10/23/2018 Act cornelio Januvia 100 MG tablet Take 100 mg by mouth 1 (one) time each day 05/20/2020 Active Lancets (OneTouch Delica Plus [id number]) Misc use 1 LANCET to TEST BLOOD SUGAR once daily 04/01/2020 Active BD Pen Needle Julia U/F 32G X 4 MM Misc use UP TO THREE TIMES A DAY 03/20/2020 Active Atorvastatin Calcium (LIPITOR) 10 MG tablet Take 10 mg by mouth 1 (one) time each day 11/14/2020 Active Omeprazole Magnesium (PriLOSEC OTC) 20 MG EC tablet Take 20 mg by mouth 1 (one) time each day Active Continuous Glucose Sensor (FreeStyle Josselyn 3 Sensor) Device 05/11/2024 Active guaiFENesin-Cod eine (ROBITUSSIN-AC) 100-10 MG/5ML liquidIndicatio ns:Acquired hemolytic anemia (HCC) Take 5-10 mL by mouth 3 (three) times a day if needed for cough. 180 mL 03/29/2025 Active predniSONE (DELTASONE) 5 MG tabletIndicatio ns:Acquired hemolytic anemia (HCC) Take one tablet (5 mg total) by mouth 1 (one) time each day. 30 tablet 1 05/25/2025 Active Active Problems Problem Noted Date Diagnosed Date History of basal cell carcinoma 11/18/2024 Immunodeficiency due to cond itions classified elsewhere ([facility]) 03/12/2024 History of pulmonary embolism 07/25/2023 Hypoxia [...] negative for hematuria. -not an active issue Immunizations Immunization Administration Dates Next Due PCV-20 04/30/2024 Tdap 11/14/2020 Social History Smoking Status as of 07/08/2025 Tobacco Use Types Packs/Day Years Used Date Smoking Tobacco: Never Assessed Intimate Partner Violence Answer Date R ecorded [...] Sign Reading Time Taken Comments Blood Pressure 120/70 03/28/2025 5:02 PM EDT Pulse 91 03/28/2025 5:02 PM EDT Temperature 37.3 C (99.2 F) 03/28/2025 5:02 PM EDT Respiratory Rate 22 03/28/2025 5:02 PM EDT Oxygen Saturation 93% 03/28/2025 5:02 PM EDT Inhaled Oxygen Concentration - - Weight 86.9 kg (191 lb 9.6 oz) 12/31/2024 9:27 A M EST Height 177.8 cm (5' 10 ) 12/31/2024 9:27 AM EST Body Mass Index 27.49 12/31/2024 9:27 AM EST Plan of Treatment Upcoming Encounters Date Type Department Care Team (Late st Contact Info) Description 07/19/2025 9:00 AM EDT Office Visit [facility] Hematology/Oncology [address] [place] [address] Prince Owens MD [address] [place] [address] R/S from 06-30 due to mother passing away 11/18/2025 2:00 PM EST Office Visit [facility] Dermatology [address] [place] [phone] Iván Guajardo MD [address] [place] [phone] Return in about 1 year (around 11/18/2025). Procedures * Due to [place] state law, [...] 10:39 AM EDT Acquired hemolytic anemia (HCC) CBC (H/H, RBC, INDICES,WBC, PLT) Routine 05/11/2025 [...] 10:47 AM EDT Acquired hemolytic anemia (HCC) CBC (H/H, RBC, INDICES,WBC, PLT) Routine 05/04/2025 10:47 AM EDT Acquired hemolytic anemia (HCC) COMPREHENSIVE METABOLIC PANEL WITH GFR Routine 04/27/2025 11:40 AM EDT Acquired hemolytic anemia (HCC) LACTATE DEHYDROGENASE (LDH), SERUM Routine 04/27/2025 11:40 AM EDT Acquired hemolytic anemia (HCC) CBC (H/H, RBC, INDICES,WBC, PLT) Routine 04/27/2025 11:40 AM EDT Acquired hemolytic anemia (HCC) COMPREHENSIVE METABOLIC PANEL WITH GFR Routine 04/20/2025 10:47 AM EDT Acquired hemolytic anemia (HCC) LACTATE DEHYDROGENASE (LDH), SERUM Routine 04/20/2025 10:47 AM EDT Acquired hemolytic anemia (HCC) CBC (H/H, RBC, INDICES,WBC, PLT) Routine 04/20/2025 10:47 AM EDT Acquired hemolytic anemia (HCC) CBC (H/H, RBC, INDICES,WBC, PLT) Routine 04/13/2025 [...] 9:57 AM EDT Acquired hemolytic anemia (HCC) CBC (H/H, RBC, INDICES,WBC, PLT) Routine 04/06/2025 9:57 AM EDT Acquired hemolytic anemia (HCC) COMPREHENSIVE METABOLIC PANEL WITH GFR Routine 03/30/2025 9:44 AM EDT Acquired hemolytic anemia (HCC) LACTATE DEHYDROGENASE (LDH), SERUM Routine 03/30/2025 9:44 AM EDT Acquired hemolytic anemia (HCC) CBC (H/H, RBC, INDICES,WBC, PLT) Routine 03/30/2025 9:44 AM EDT Acquired hemolytic anemia (HCC) XRAY CHEST, 2 VIEWS, PA & LATERAL (DX: COUGH R05.9/ 786.2) FC STAT (All results called to provider) 03/28/2025 6:24 PM EDT SOB (shortness of breath) COVID19 AND INFLUENZA A AND B PCR (STATION) Routine 03/28/2025 6:00 PM EDT Other acquired hemolytic anemias (HCC) COMPREHENSIVE METABOLIC PANEL WITH GFR STAT (All results called to provider) 03/28/2025 6:00 PM EDT Other acquired hemolytic anemias (HCC) LACTATE DEHYDROGENASE (LDH), SERUM Routine 03/28/2025 6:00 PM EDT Other acquired hemolytic anemias (HCC) CBC INCLUDES DIFFERENTIAL AND PLATELET COUNT STAT (All results called to provider) 03/28/2025 6:00 PM EDT Other acquired hemolytic anemias (HCC) RETICULOCYTE COUNT Routine 03/28/2025 6: 00 PM EDT Other acquired hemolytic anemias (HCC) ERYTHROCYTE SEDIMENTATION RATE (ESR) STAT (All results called to provider) 03/28/2025 6:00 PM EDT Other acquired hemolytic anemias (HCC) COMPREHENSIVE METABOLIC PANEL WITH GFR Routine 02/28/2025 10:23 AM EDT Acquired hemolytic anemia (HCC) LACTATE DEHYDROGENASE (LDH), SERUM Routine 02/28/2025 10:23 AM EDT Acquired hemolytic anemia (HCC) CBC (H/H, RBC, INDICES,WBC, PLT) Routine 02/28/2025 10:23 AM EDT Acquired hemolytic anemia (HCC) COMPREHENSIVE METABOLIC PANEL WITH GFR Routine 02/07/2025 12:30 PM EDT Acquired hemolytic anemia (HCC) LACTATE DEHYDROGENASE (LDH), SERUM Routine 02/07/2025 12:30 PM EDT Acquired hemolytic anemia (HCC) CBC INCLUDES DIFFERENTIAL AND PLATELET COUNT Routine 02/07/2025 12:30 PM EDT Acquired hemolytic anemia (HCC) CBC INCLUDES DIFFERENTIAL AND PLATELET COUNT Routine 01/17/2025 12:27 PM EDT Acquired hemolytic anemia LACTATE DEHYDROGENASE (LDH), SERUM Routine 01/17/2025 12:27 PM EDT Acquired hemolytic anemia COMPREHENSIVE METABOLIC PANEL WITH GFR Routine 01/17/2025 12:27 PM EDT Acquired hemolytic anemia CBC INCLUDES DIFFERENTIAL AND PLATELET COUNT Routine 01/03/2025 10:43 AM EST Acquired hemolytic anemia COMPREHENSIVE METABOLIC PANEL WITH GFR Routine 01/03/2025 10:43 AM EST Acquired hemolytic anemia LACTATE DEHYDROGENASE (LDH), SERUM Routine 01/03/2025 10:43 AM EST Acquired hemolytic anemia CBC INCLUDES DIFFERENTIAL AND PLATELET COUNT Routine [...] 11/24/2024 12:02 PM EST Acquired hemolytic anemia CBC INCLUDES DIFFERENTIAL AND PLATELET COUNT Routine 11/24/2024 12:02 PM EST Acquired hemolytic anemia CBC INCLUDES DIFFERENTIAL AND PLATELET COUNT Routine 11/09/2024 10:36 AM EST Acquired hemolytic anemia COMPREHENSIVE METABOLIC PANEL WITH GFR Routine 11/09/2024 10:36 AM EST Acquired hemolytic anemia LACTATE DEHYDROGENASE (LDH), SERUM Routine 11/09/2024 10:36 AM EST Acquired hemolytic anemia CBC INCLUDES DIFFERENTIAL AND PLATELET COUNT Routine [...] 10/11/2024 1:44 PM EST Acquired hemolytic anemia CBC INCLUDES DIFFERENTIAL AND PLATELET COUNT Routine 10/11/2024 1:44 PM EST Acquired hemolytic anemia LACTATE DEHYDROGENASE (LDH), SERUM Routine 09/27/2024 1:40 PM EST Acquired hemolytic anemia COMPREHENSIVE METABOLIC PANEL WITH GFR Routine 09/27/2024 1:40 PM EST Acquired hemolytic anemia CBC INCLUDES DIFFERENTIAL AND PLATELET COUNT Routine 09/27/2024 1:40 PM EST Acquired hemolytic anemia CBC INCLUDES DIFFERENTIAL AND PLATELET COUNT Routine 08/31/2024 2:08 PM EDT Acquired hemolytic anemia CBC INCLUDES DIFFERENTIAL AND PLATELET COUNT Routine 08/26/2024 3:42 PM EDT Acquired hemolytic anemia COMPREHENSIVE METABOLIC PANEL WITH GFR Routine 08/26/2024 3:42 PM EDT Acquired hemolytic anemia LACTATE DEHYDROGENASE (LDH), SERUM Routine 08/26/2024 3:42 PM EDT Acquired hemolytic anemia CBC INCLUDES DIFFERENTIAL AND PLATELET COUNT Routine 08/17/2024 2:55 PM EDT Acquired hemolytic anemia CBC INCLUDES DIFFERENTIAL AND PLATELET COUNT Routine 08/10/2024 10:02 AM EDT Acquired hemolytic anemia COMPREHENSIVE METABOLIC PANEL WITH GFR Routine 08/10/2024 10:02 AM EDT Acquired hemolytic anemia LACTATE DEHYDROGENASE (LDH), SERUM Routine 08/10/2024 10:02 AM EDT Acquired hemolytic anemia CBC INCLUDES DIFFERENTIAL AND PLATELET COUNT Routine 08/02/2024 2:27 PM EDT Acquired hemolytic anemia CBC INCLUDES DIFFERENTIAL AND PLATELET COUNT Routine 07/27/2024 3:21 PM EDT Acquired hemolytic anemia COMPREHENSIVE METABOLIC PANEL WITH GFR Routine 07/27/2024 3:21 PM EDT Acquired hemolytic anemia LACTATE DEHYDROGENASE (LDH), SERUM Routine 07/27/2024 3:21 PM EDT Acquired hemolytic anemia CBC INCLUDES DIFFERENTIAL AND PLATELET COUNT Routine 07/19/2024 3:46 PM EDT Acquired hemolytic anemia CBC INCLUDES DIFFERENTIAL AND PLATELET COUNT Routine 07/12/2024 9:01 AM EDT Acquired hemolytic anemia COMPREHENSIVE METABOLIC PANEL WITH GFR Routine 07/12/2024 9:01 AM EDT Acquired hemolytic anemia LACTATE DEHYDROGENASE (LDH), SERUM Routine 07/12/2024 9:01 AM EDT Acquired hemolytic anemia CBC INCLUDES DIFFERENTIAL AND PLATELET COUNT Routine 06/29/2024 11:58 AM EDT Acquired hemolytic anemia CBC INCLUDES DIFFERENTIAL AND PLATELET COUNT Routine 06/22/2024 12:06 PM EDT Acquired hemolytic anemia CBC INCLUDES DIFFERENTIAL AND PLATELET COUNT Routine 06/15/2024 10:45 AM EDT Acquired hemolytic anemia CBC INCLUDES DIFFERENTIAL AND PLATELET COUNT Routine 06/04/2024 11:29 AM EDT Acquired hemolytic anemia COMPREHENSIVE METABOLIC PANEL WITH GFR Routine 06/04/2024 11:29 AM EDT Acquired hemolytic anemia LACTATE DEHYDROGENASE (LDH), SERUM Routine 06/04/2024 11:29 AM EDT Acquired hemolytic anemia CBC INCLUDES DIFFERENTIAL AND PLATELET COUNT Routine 05/21/2024 11:21 AM EDT Acquired hemolytic anemia COMPREHENSIVE METABOLIC PANEL WITH GFR Routine 05/21/2024 11:21 AM EDT Acquired hemolytic anemia LACTATE DEHYDROGENASE (LDH), SERUM Routine 05/21/2024 11:21 AM EDT Acquired hemolytic anemia CBC INCLUDES DIFFERENTIAL AND PLATELET COUNT Routine 04/29/2024 12:43 PM EDT Acquired hemolytic anemia COMPREHENSIVE METABOLIC PANEL WITH GFR Routine 04/29/2024 12:43 PM EDT Acquired hemolytic anemia LACTATE DEHYDROGENASE (LDH), SERUM Routine 04/29/2024 12:43 PM EDT Acquired hemolytic anemia CBC INCLUDES DIFFERENTIAL AND PLATELET COUNT Routine 04/10/2024 11:08 AM EDT Malignant neoplasm of urinary bladder, unspecified site COMPREHENSIVE METABOLIC PANEL WITH GFR Routine 04/10/2024 11:08 AM EDT Malignant neoplasm of urinary bladder, unspecified site LACTATE DEHYDROGENASE (LDH), SERUM Routine 04/10/2024 11:08 AM EDT Malignant neoplasm of urinary bladder, unspecified site CBC INCLUDES DIFFERENTIAL AND PLATELET COUNT Routine 03/27/2024 9:56 AM EDT Malignant neoplasm of urinary bladder, unspecified site COMPREHENSIVE METABOLIC PANEL WITH GFR Routine 03/27/2024 9:56 AM EDT Malignant neoplasm of urinary bladder, unspecified site LACTATE DEHYDROGENASE (LDH), SERUM Routine 03/27/2024 9:56 AM EDT Malignant neoplasm of urinary bladder, unspecified site CBC INCLUDES DIFFERENTIAL AND PLATELET COUNT Routine 03/09/2024 3:37 PM EDT Malignant neoplasm of urinary bladder, unspecified site COMPREHENSIVE METABOLIC PANEL WITH GFR Routine 03/09/2024 3:37 PM EDT Malignant neoplasm of urinary bladder, unspecified site LACTATE DEHYDROGENASE (LDH), SERUM Routine 03/09/2024 3:37 PM EDT Malignant neoplasm of urinary bladder, unspecified site TRANSFUSION OF BLOOD PRODUCT Routine 02/25/2024 7:26 AM EDT KRISTAN INDIRECT ANTIBODY SCREEN, RBC WITH REFLEX TO IDENTIFICATION AND TITER Routine 02/24/2024 12:35 PM EDT ABO/RH Routine 02/24/2024 12:35 PM EDT CBC INCLUDES DIFFERENTIAL AND PLATELET COUNT Routine 02/23/2024 9:01 AM EDT Malignant neoplasm of urinary bladder, unspecified site COMPREHENSIVE METABOLIC PANEL WITH GFR Routine 02/23/2024 9:01 AM EDT Malignant neoplasm of urinary bladder, unspecified site LACTATE DEHYDROGENASE (LDH), SERUM Routine 02/23/2024 9:01 AM EDT Malignant neoplasm of urinary bladder, unspecified site CBC INCLUDES DIFFERENTIAL AND PLATELET COUNT Routine 02/07/2024 10:45 AM EDT Malignant neoplasm of urinary bladder, unspecified site COMPREHENSIVE METABOLIC PANEL WITH GFR Routine 02/07/2024 10:45 AM EDT Malignant neoplasm of urinary bladder, unspecified site LACTATE DEHYDROGENASE (LDH), SERUM Routine 02/07/2024 10:45 AM EDT Malignant neoplasm of urinary bladder, unspecified site CBC INCLUDES DIFFERENTIAL AND PLATELET COUNT Routine 01/24/2024 12:18 PM EDT Malignant neoplasm of urinary bladder, unspecified site COMPREHENSIVE METABOLIC PANEL WITH GFR Routine 01/24/2024 12:18 PM EDT Malignant neoplasm of urinary bladder, unspecified site LACTATE DEHYDROGENASE (LDH), SERUM Routine 01/24/2024 12:18 PM EDT Malignant neoplasm of urinary bladder, unspecified site CBC INCLUDES DIFFERENTIAL AND PLATELET COUNT Routine [...] Malignant neoplasm of urinary bladder, unspecified site CBC INCLUDES DIFFERENTIAL AND PLATELET COUNT Routine 12/26/2023 2:02 PM EST Malignant neoplasm of urinary bladder, unspecified site LACTATE DEHYDROGENASE (LDH), SERUM Routine 12/26/2023 2:02 PM EST Malignant neoplasm of urinary bladder, unspecified site CBC INCLUDES DIFFERENTIAL AND PLATELET COUNT Routine 11/28/2023 3:12 PM EST Malignant neoplasm of urinary bladder, unspecified site COMPREHENSIVE METABOLIC PANEL WITH GFR Routine 11/28/2023 3:12 PM EST Malignant neoplasm of urinary bladder, unspecified site LACTATE DEHYDROGENASE (LDH), SERUM Routine 11/28/2023 3:12 PM EST Malignant neoplasm of urinary bladder, unspecified site CBC INCLUDES DIFFERENTIAL AND PLATELET COUNT Routine 11/06/2023 12:48 PM EST Malignant neoplasm of urinary bladder, unspecified site COMPREHENSIVE METABOLIC PANEL WITH GFR Routine 11/06/2023 12:48 PM EST Malignant neoplasm of urinary bladder, unspecified site LACTATE DEHYDROGENASE (LDH), SERUM Routine 11/06/2023 12:48 PM EST Malignant neoplasm of urinary bladder, unspecified site CBC INCLUDES DIFFERENTIAL AND PLATELET COUNT Routine 10/17/2023 12:25 PM EST Malignant neoplasm of urinary bladder, unspecified site COMPREHENSIVE METABOLIC PANEL WITH GFR Routine 10/17/2023 12:25 PM EST Malignant neoplasm of urinary bladder, unspecified site LACTATE DEHYDROGENASE (LDH), SERUM Routine 10/17/2023 12:25 PM EST Malignant neoplasm of urinary bladder, unspecified site CBC INCLUDES DIFFERENTIAL AND PLATELET COUNT Routine 10/02/2023 4:09 PM EST LACTATE DEHYDROGENASE (LDH), SERUM Routine 10/02/2023 4:09 PM EST COMPREHENSIVE METABOLIC PANEL WITH GFR Routine 10/02/2023 4:09 PM EST COMPREHENSIVE METABOLIC PANEL WITH GFR Routine 09/17/2023 1:29 PM EST CBC INCLUDES DIFFERENTIAL AND PLATELET COUNT Routine 09/17/2023 1:27 PM EST Malignant neoplasm of urinary bladder, unspecified site LACTATE DEHYDROGENASE (LDH), SERUM Routine 09/17/2023 1:27 PM EST Malignant neoplasm of urinary bladder, unspecified site HEPATIC FUNCTION PANEL (ALT,AST,ALK PH,BILI'S,TP,ALB) Routine 09/17/2023 1:27 PM EST Malignant neoplasm of urinary bladder, unspecified site CBC INCLUDES DIFFERENTIAL AND PLATELET COUNT Routine 09/11/2023 1:28 PM EST Acquired hemolytic anemia COMPREHENSIVE METABOLIC PANEL WITH GFR Routine 09/11/2023 1:28 PM EST Acquired hemolytic anemia LACTATE DEHYDROGENASE (LDH), SERUM Routine 09/11/2023 1:28 PM EST Acquired hemolytic anemia CBC INCLUDES DIFFERENTIAL AND PLATELET COUNT Routine 09/02/2023 10:07 AM EDT LACTATE DEHYDROGENASE (LDH), SERUM Routine 09/02/2023 10:07 AM EDT COMPREHENSIVE METABOLIC PANEL WITH GFR Routine 09/02/2023 10:07 AM EDT COMPREHENSIVE METABOLIC PANEL WITH GFR Routine 08/29/2023 9:57 AM EDT Acquired hemolytic anemia CBC INCLUDES DIFFERENTIAL AND PLATELET COUNT Routine 08/15/2023 11:45 AM EDT Acquired hemolytic anemia LACTATE DEHYDROGENASE (LDH), SERUM Routine 08/15/2023 11:45 AM EDT Acquired hemolytic anemia BILIRUBIN, TOTAL, SERUM (ADULT) Routine 08/15/2023 11:45 AM EDT Acquired hemolytic anemia CBC INCLUDES DIFFERENTIAL AND PLATELET COUNT Routine 08/13/2023 2:25 PM EDT Acquired hemolytic anemia LACTATE DEHYDROGENASE (LDH), SERUM Routine 08/13/2023 2:25 PM EDT Acquired hemolytic anemia BILIRUBIN, TOTAL, SERUM (ADULT) Routine 08/13/2023 2:25 PM EDT Acquired hemolytic anemia CBC INCLUDES DIFFERENTIAL AND PLATELET COUNT Routine 08/11/2023 2:16 PM EDT Acquired hemolytic anemia LACTATE DEHYDROGENASE (LDH), SERUM Routine 08/11/2023 2:16 PM EDT Acquired hemolytic anemia BILIRUBIN, TOTAL, SERUM (ADULT) Routine 08/11/2023 2:16 PM EDT Acquired hemolytic anemia CBC INCLUDES DIFFERENTIAL AND PLATELET COUNT Routine 08/08/2023 2:52 PM EDT Acquired hemolytic anemia LACTATE DEHYDROGENASE (LDH), SERUM Routine 08/08/2023 2:52 PM EDT Acquired hemolytic anemia BILIRUBIN, TOTAL, SERUM (ADULT) Routine 08/08/2023 2:52 PM EDT Acquired hemolytic anemia COMPREHENSIVE METABOLIC PANEL WITH GFR Routine 08/05/2023 2:53 PM EDT Acquired hemolytic anemia CBC INCLUDES DIFFERENTIAL AND PLATELET COUNT Routine 08/05/2023 2:53 PM EDT Acquired hemolytic anemia LACTATE DEHYDROGENASE (LDH), SERUM Routine 08/05/2023 2:53 PM EDT Acquired hemolytic anemia BILIRUBIN, TOTAL, SERUM (ADULT) Routine 08/05/2023 2:53 PM EDT Acquired hemolytic anemia CBC INCLUDES DIFFERENTIAL AND PLATELET COUNT STAT (All results called to provider) 08/01/2023 12:25 PM EDT Acquired hemolytic anemia CBC INCLUDES DIFFERENTIAL AND PLATELET COUNT Routine 07/29/2023 3:59 PM EDT LACTATE DEHYDROGENASE (LDH), SERUM Routine 07/29/2023 3:59 PM EDT COMPREHENSIVE METABOLIC PANEL WITH GFR Routine 07/29/2023 3:59 PM EDT CBC INCLUDES DIFFERENTIAL AND PLATELET COUNT Routine 07/23/2023 10:55 AM EDT LACTATE DEHYDROGENASE (LDH), SERUM Routine 07/23/2023 10:55 AM EDT COMPREHENSIVE METABOLIC PANEL WITH GFR Routine 07/23/2023 10:55 AM EDT CBC INCLUDES DIFFERENTIAL AND PLATELET COUNT Routine 05/30/2023 1:58 PM EDT Acquired hemolytic anemia COMPREHENSIVE METABOLIC PANEL WITH GFR Routine 05/30/2023 1:58 PM EDT Acquired hemolytic anemia LACTATE DEHYDROGENASE (LDH), SERUM Routine 05/30/2023 1:58 PM EDT Acquired hemolytic anemia CBC INCLUDES DIFFERENTIAL AND PLATELET COUNT Routine 04/30/2023 2:13 PM EDT Acquired hemolytic anemia LACTATE DEHYDROGENASE (LDH), SERUM Routine 04/25/2023 1:42 PM EDT Acquired hemolytic anemia COMPREHENSIVE METABOLIC PANEL WITH GFR Routine 04/25/2023 1:42 PM EDT Acquired hemolytic anemia CBC INCLUDES DIFFERENTIAL AND PLATELET COUNT Routine 04/25/2023 1:42 PM EDT Acquired hemolytic anemia CBC INCLUDES DIFFERENTIAL AND PLATELET COUNT Routine [...] 11/26/2022 9:29 AM EST Acquired hemolytic anemia COMPREHENSIVE METABOLIC PANEL, PLASMA STAT (All results called to provider) 11/26/2022 9:29 AM EST Acquired hemolytic anemia CBC INCLUDES DIFFERENTIAL AND PLATELET COUNT Routine 10/03/2022 12:39 PM EST Acquired hemolytic anemia COMPREHENSIVE METABOLIC PANEL WITH GFR Routine 10/03/2022 12:39 PM EST Acquired hemolytic anemia LACTATE DEHYDROGENASE (LDH), SERUM Routine 10/03/2022 12:39 PM EST Acquired hemolytic anemia CBC INCLUDES DIFFERENTIAL AND PLATELET COUNT Routine 08/19/2022 2:39 PM EDT Acquired hemolytic anemia COMPREHENSIVE METABOLIC PANEL WITH GFR Routine 08/19/2022 2:39 PM EDT Acquired hemolytic anemia VENIPUNCTURE Routine 08/19/2022 2:39 PM EDT Acquired hemolytic anemia DIFFERENTIAL, MANUAL Routine 04/02/2022 2:06 PM EDT CBC WITH MANUAL DIFF Routine 04/02/2022 2:06 PM EDT Acquired hemolytic anemia COMPREHENSIVE METABOLIC PANEL WITH GFR Routine 04/02/2022 2:06 PM EDT Acquired hemolytic anemia VENIPUNCTURE Routine 04/02/2022 2:06 PM EDT Acquired hemolytic anemia CBC INCLUDES DIFFERENTIAL AND PLATELET COUNT Routine 01/25/2022 4:05 PM EDT Acquired hemolytic anemia COMPREHENSIVE METABOLIC PANEL WITH GFR Routine 01/25/2022 4:05 PM EDT Acquired hemolytic anemia VENIPUNCTURE Routine 01/25/2022 4:05 PM EDT Acquired hemolytic anemia CBC INCLUDES DIFFERENTIAL AND PLATELET COUNT Routine 12/25/2021 9:50 AM EST LACTATE DEHYDROGENASE (LDH), SERUM Routine 12/25/2021 9:50 AM EST BILIRUBIN, TOTAL, SERUM (ADULT) Routine 12/25/2021 9:50 AM EST CBC INCLUDES DIFFERENTIAL AND PLATELET COUNT Routine 12/18/2021 10:30 AM EST LACTATE DEHYDROGENASE (LDH), SERUM Routine 12/18/2021 10:30 AM EST BILIRUBIN, TOTAL, SERUM (ADULT) Routine 12/18/2021 10:30 AM EST CBC INCLUDES DIFFERENTIAL AND PLATELET COUNT Routine 12/11/2021 9:40 AM EST LACTATE DEHYDROGENASE (LDH), SERUM Routine 12/11/2021 9:40 AM EST BILIRUBIN, TOTAL, SERUM (ADULT) Routine 12/11/2021 9:40 AM EST CBC INCLUDES DIFFERENTIAL AND PLATELET COUNT Routine 11/23/2021 LACTATE DEHYDROGENASE (LDH), SERUM Routine 11/23/2021 BILIRUBIN, TOTAL, SERUM (ADULT) Routine 11/23/2021 GLUCOSE Routine 11/17/2021 11:00 AM EST GLUCOSE Routine 11/17/2021 7:02 AM EST GLUCOSE Routine 11/16/2021 7:57 PM EST GLUCOSE Routine 11/16/2021 4:21 PM EST GLUCOSE Routine 11/16/2021 10:50 AM EST GLUCOSE Routine 11/16/2021 9:27 AM EST GLUCOSE Routine 11/16/2021 7:09 AM EST CBC W/O DIFFERENTIAL Routine 11/16/2021 6:35 AM EST GLUCOSE Routine 11/15/2021 8:29 PM EST GLUCOSE Routine 11/15/2021 4:10 PM EST GLUCOSE Routine 11/15/2021 11:13 AM EST GLUCOSE Routine 11/15/2021 7:17 AM EST CBC W/O DIFFERENTIAL Routine 11/15/2021 6:35 AM EST GLUCOSE Routine 11/14/2021 8:14 PM EST GLUCOSE Routine 11/14/2021 4:08 PM EST GLUCOSE Routine 11/14/2021 11:00 AM EST GLUCOSE Routine 11/14/2021 7:30 AM EST GLUCOSE Routine 11/13/2021 7:55 PM EST GLUCOSE Routine 11/13/2021 4:19 PM EST GLUCOSE Routine 11/13/2021 11:38 AM EST GLUCOSE Routine 11/13/2021 7:34 AM EST GLUCOSE Routine 11/12/2021 8:36 PM EST GLUCOSE Routine 11/12/2021 4:27 PM EST GLUCOSE Routine 11/12/2021 11:01 AM EST GLUCOSE Routine 11/12/2021 7:11 AM EST GLUCOSE Routine 11/11/2021 8:12 PM EST GLUCOSE Routine 11/11/2021 4:16 PM EST GLUCOSE Routine 11/11/2021 11:57 AM EST GLUCOSE Routine 11/11/2021 7:46 AM EST GLUCOSE Routine 11/10/2021 9:06 PM EST GLUCOSE Routine 11/10/2021 4:53 PM EST GLUCOSE Routine 11/10/2021 12:11 PM EST GLUCOSE Routine 11/10/2021 7:46 AM EST GLUCOSE Routine 11/09/2021 8:13 PM EST GLUCOSE Routine 11/09/2021 4:04 PM EST GLUCOSE Routine 11/09/2021 11:48 AM EST GLUCOSE Routine 11/09/2021 7:32 AM EST BASIC METABOLIC PANEL Routine 11/09/2021 4:56 AM EST PHOSPHORUS Routine 11/09/2021 4:56 AM EST MAGNESIUM Routine 11/09/2021 4:56 AM EST CBC W/O DIFFERENTIAL Routine 11/09/2021 4:56 AM EST GLUCOSE Routine 11/08/2021 8:11 PM EST GLUCOSE Routine 11/08/2021 4:17 PM EST GLUCOSE Routine 11/08/2021 11:30 AM EST GLUCOSE Routine 11/08/2021 7:59 AM EST GLUCOSE Routine 11/07/2021 8:43 PM EST GLUCOSE Routine 11/07/2021 4:10 PM EST GLUCOSE Routine 11/07/2021 11:28 AM EST GLUCOSE Routine 11/07/2021 7:54 AM EST GLUCOSE Routine 11/06/2021 8:07 PM EST GLUCOSE Routine 11/06/2021 4:09 PM EST GLUCOSE Routine 11/06/2021 12:19 PM EST GLUCOSE Routine 11/06/2021 7:29 AM EST CBC W/O DIFFERENTIAL Routine 11/06/2021 7:25 AM EST GLUCOSE Routine 11/05/2021 7:48 PM EST GLUCOSE Routine 11/05/2021 4:08 PM EST GLUCOSE Routine 11/05/2021 11:44 AM EST GLUCOSE Routine 11/05/2021 7:17 AM EST COMPREHENSIVE METABOLIC Routine 11/05/2021 5:55 AM EST CBC W/O DIFFERENTIAL Routine 11/05/2021 5:55 AM EST GLUCOSE Routine 11/04/2021 8:21 PM EST GLUCOSE Routine 11/04/2021 4:01 PM EST GLUCOSE Routine 11/04/2021 11:37 AM EST GLUCOSE Routine 11/04/2021 7:32 AM EST CBC W/O DIFFERENTIAL Routine 11/04/2021 6:20 AM EST GLUCOSE Routine 11/03/2021 7:57 PM EST GLUCOSE Routine 11/03/2021 4:34 PM EST GLUCOSE Routine 11/03/2021 11:29 AM EST BLOOD TYPE AND ANTIBODY SCREEN Routine 11/03/2021 11:20 AM EST GLUCOSE Routine 11/03/2021 7:25 AM EST BASIC METABOLIC PANEL Routine 11/03/2021 6:00 AM EST CBC WITH 5 PART DIFF Routine 11/03/2021 6:00 AM EST GLUCOSE Routine 11/02/2021 8:29 PM EST GLUCOSE Routine 11/02/2021 4:08 PM EST CHEST, PORTABLE Routine 11/02/2021 2:55 PM EST ABDOMEN SINGLE AP VIEW Routine 11/02/2021 12:51 PM EST CHEST, PORTABLE Routine 11/02/2021 12:47 PM EST GLUCOSE Routine 11/02/2021 11:10 AM EST GLUCOSE Routine 11/02/2021 7:46 AM EST BASIC METABOLIC PANEL Routine 11/02/2021 4:40 AM EST CBC WITH 5 PART DIFF Routine 11/02/2021 4:40 AM EST GLUCOSE Routine 11/01/2021 8:21 PM EST GLUCOSE Routine 11/01/2021 3:48 PM EST GLUCOSE Routine 11/01/2021 11:03 AM EST GLUCOSE Routine 11/01/2021 7:38 AM EST BASIC METABOLIC PANEL Routine 11/01/2021 4:50 AM EST CBC WITH 5 PART DIFF Routine 11/01/2021 4:50 AM EST GLUCOSE Routine 10/31/2021 8:05 PM EST GLUCOSE Routine 10/31/2021 3:53 PM EST GLUCOSE Routine 10/31/2021 11:37 AM EST GLUCOSE Routine 10/31/2021 7:37 AM EST BASIC METABOLIC PANEL Routine 10/31/2021 5:10 AM EST CBC WITH 5 PART DIFF Routine 10/31/2021 5:10 AM EST GLUCOSE Routine 10/30/2021 8:20 PM EST VENOUS BLOOD GAS Routine 10/30/2021 5:00 PM EST GLUCOSE Routine 10/30/2021 3:40 PM EST VENOUS BLOOD GAS Routine 10/30/2021 3:00 PM EST GLUCOSE Routine 10/30/2021 11:20 AM EST GLUCOSE Routine 10/30/2021 7:12 AM EST BASIC METABOLIC PANEL Routine 10/30/2021 4:40 AM EST CBC WITH 5 PART DIFF Routine 10/30/2021 4:40 AM EST GLUCOSE Routine 10/29/2021 9:38 PM EST GLUCOSE Routine 10/29/2021 8:28 PM EST GLUCOSE Routine 10/29/2021 4:15 PM EST BLOOD TYPE AND ANTIBODY SCREEN Routine 10/29/2021 3:42 PM EST CBC WITH 5 PART DIFF Routine 10/29/2021 3:42 PM EST GLUCOSE Routine 10/29/2021 11:04 AM EST GLUCOSE Routine 10/29/2021 7:32 AM EST BASIC METABOLIC PANEL Routine 10/29/2021 4:40 AM EST PHOSPHORUS Routine 10/29/2021 4:40 AM EST MAGNESIUM Routine 10/29/2021 4:40 AM EST CBC WITH 5 PART DIFF Routine 10/29/2021 4:40 AM EST GLUCOSE Routine 10/28/2021 9:10 PM EST GLUCOSE Routine 10/28/2021 4:26 PM EST GLUCOSE Routine 10/28/2021 10:47 AM EST GLUCOSE Routine 10/28/2021 7:39 AM EST CBC WITH 5 PART DIFF Routine 10/28/2021 4:50 AM EST GLUCOSE Routine 10/27/2021 8:58 PM EST GLUCOSE Routine 10/27/2021 4:23 PM EST GLUCOSE Routine 10/27/2021 11:21 AM EST CBC W/O DIFFERENTIAL Routine 10/27/2021 8:55 AM EST GLUCOSE Routine 10/27/2021 6:56 AM EST MAGNESIUM Routine 10/27/2021 4:50 AM EST BASIC METABOLIC PANEL Routine 10/27/2021 4:50 AM EST PHOSPHORUS Routine 10/27/2021 4:50 AM EST CBC W/O DIFFERENTIAL Routine 10/27/2021 4:50 AM EST GLUCOSE Routine 10/26/2021 9:07 PM EST GLUCOSE Routine 10/26/2021 4:00 PM EST GLUCOSE Routine 10/26/2021 11:41 AM EST GLUCOSE Routine 10/26/2021 7:46 AM EST BASIC METABOLIC PANEL Routine 10/26/2021 4:56 AM EST MAGNESIUM Routine 10/26/2021 4:56 AM EST CBC W/O DIFFERENTIAL Routine 10/26/2021 4:56 AM EST GLUCOSE Routine 10/25/2021 9:04 PM EST GLUCOSE Routine 10/25/2021 8:10 PM EST GLUCOSE Routine 10/25/2021 4:32 PM EST GLUCOSE Routine 10/25/2021 11:57 AM EST GLUCOSE Routine 10/25/2021 7:26 AM EST GLUCOSE Routine 10/24/2021 9:05 PM EST GLUCOSE Routine 10/24/2021 3:38 PM EST GLUCOSE Routine 10/24/2021 12:27 PM EST GLUCOSE Routine 10/24/2021 8:33 AM EST GLUCOSE Routine 10/23/2021 8:49 PM EST GLUCOSE Routine 10/23/2021 4:25 PM EST ARTERIAL BLOOD GAS Routine 10/23/2021 4: 17 PM EST CHEST, PORTABLE Routine 10/23/2021 2:02 PM EST GLUCOSE Routine 10/23/2021 11:08 AM EST VANCOMYCIN Routine 10/23/2021 8:20 AM EST BASIC METABOLIC PANEL Routine 10/23/2021 8:20 AM EST PHOSPHORUS Routine 10/23/2021 8:20 AM EST MAGNESIUM Routine 10/23/2021 8:20 AM EST CBC WITH 5 PART DIFF Routine 10/23/2021 8:20 AM EST GLUCOSE Routine 10/23/2021 7:15 AM EST GLUCOSE Routine 10/22/2021 8:53 PM EST GLUCOSE Routine 10/22/2021 6:00 PM EST GLUCOSE Routine 10/22/2021 4:51 PM EST GLUCOSE Routine 10/22/2021 4:39 PM EST GLUCOSE Routine 10/22/2021 4:06 PM EST GLUCOSE Routine 10/22/2021 11:20 AM EST GLUCOSE Routine 10/22/2021 7:52 AM EST FOLATE (FOLIC ACID) Routine 10/22/2021 4 :55 AM EST VITAMIN B12 Routine 10/22/2021 4:55 AM EST COMPREHENSIVE METABOLIC Routine 10/22/2021 4:55 AM EST PHOSPHORUS Routine 10/22/2021 4:55 AM EST MAGNESIUM Routine 10/22/2021 4:55 AM EST CBC WITH 5 PART DIFF Routine 10/22/2021 4:55 AM EST GLUCOSE Routine 10/21/2021 8:16 PM EST GLUCOSE Routine 10/21/2021 4:25 PM EST CBC WITH 5 PART DIFF Routine 10/21/2021 11:25 AM EST GLUCOSE Routine 10/21/2021 11:25 AM EST VANCOMYCIN Routine 10/21/2021 8:50 AM EST GLUCOSE Routine 10/21/2021 7:36 AM EST CBC WITH MANUAL DIFF Routine 10/21/2021 5:40 AM EST BASIC METABOLIC PANEL Routine 10/21/2021 5:40 AM EST PHOSPHORUS Routine 10/21/2021 5:40 AM EST MAGNESIUM Routine 10/21/2021 5:40 AM EST VANCOMYCIN Routine 10/21/2021 12:55 AM EST CBC WITH 5 PART DIFF Routine 10/21/2021 12:55 AM EST GLUCOSE Routine 10/20/2021 8:07 PM EST GLUCOSE Routine 10/20/2021 4:11 PM EST BLOOD TYPE AND ANTIBODY SCREEN Routine 10/20/2021 12:05 PM EST GLUCOSE Routine 10/20/2021 11:51 AM EST CHEST, PORTABLE Routine 10/20/2021 8:10 AM EST GLUCOSE Routine 10/20/2021 7:50 AM EST BASIC METABOLIC PANEL Routine 10/20/2021 4:55 AM EST PHOSPHORUS Routine 10/20/2021 4:55 AM EST MAGNESIUM Routine 10/20/2021 4:55 AM EST CBC WITH 5 PART DIFF Routine 10/20/2021 4:55 AM EST GLUCOSE Routine 10/19/2021 8:02 PM EST GLUCOSE Routine 10/19/2021 4:32 PM EST MRSA SCREEN, ANY SOURCE Routine 10/19/2021 4:07 PM EST CULTURE,SPUTUM Routine 10/19/2021 4:07 PM EST GLUCOSE Routine 10/19/2021 11:44 AM EST CULTURE, BLOOD #2 Routine 10/19/2021 10: 20 AM EST CULTURE, BLOOD #1 Routine 10/19/2021 10: 10 AM EST HEPATIC FUNCTION PANEL Routine 10/19/2021 10:00 AM EST LDH Routine 10/19/2021 10:00 AM EST TIBC Routine 10/19/2021 10:00 AM EST CPK Routine 10/19/2021 10:00 AM EST TROPONIN T Routine 10/19/2021 10:00 AM EST LACTIC ACID (LACTATE) Routine 10/19/2021 10:00 AM EST ARTERIAL BLOOD GAS Routine 10/19/2021 9: 29 AM EST GLUCOSE Routine 10/19/2021 7:41 AM EST CHEST, PORTABLE Routine 10/19/2021 7:26 AM EST FERRITIN Routine 10/19/2021 5:57 AM EST BNP-PRO B-TYPE NATRIURETIC PEPTIDE Routine 10/19/2021 5:57 AM EST RETICULOCYTE COUNT,AUTOMATED Routine 10/19/2021 5:57 AM EST BASIC METABOLIC PANEL Routine 10/19/2021 5:57 AM EST PHOSPHORUS Routine 10/19/2021 5:57 AM EST MAGNESIUM Routine 10/19/2021 5:57 AM EST CBC WITH 5 PART DIFF Routine 10/19/2021 5:57 AM EST GLUCOSE Routine 10/18/2021 8:38 PM EST GLUCOSE Routine 10/18/2021 3:42 PM EST RPR Routine 10/18/2021 1:50 PM EST FOLATE (FOLIC ACID) Routine 10/18/2021 1 1:30 AM EST VITAMIN B12 Routine 10/18/2021 11:30 AM EST THYROID CASCADE Routine 10/18/2021 11:30 AM EST GLUCOSE Routine 10/18/2021 11:04 AM EST GLUCOSE Routine 10/18/2021 7:52 AM EST GLUCOSE Routine 10/17/2021 9:45 PM EST GLUCOSE Routine 10/17/2021 4:27 PM EST ARTERIAL BLOOD GAS Routine 10/17/2021 12 :45 PM EST CPK Routine 10/17/2021 11:55 AM EST TROPONIN T Routine 10/17/2021 11:55 AM EST GLUCOSE Routine 10/17/2021 11:10 AM EST GLUCOSE Routine 10/17/2021 7:31 AM EST BASIC METABOLIC PANEL Routine 10/17/2021 6:05 AM EST PHOSPHORUS Routine 10/17/2021 6:05 AM EST MAGNESIUM Routine 10/17/2021 6:05 AM EST CBC WITH 5 PART DIFF Routine 10/17/2021 6:05 AM EST GLUCOSE Routine 10/16/2021 11:00 PM EST GLUCOSE Routine 10/16/2021 4:05 PM EST GLUCOSE Routine 10/16/2021 11:30 AM EST CHEST, PORTABLE Routine 10/16/2021 7:27 AM EST GLUCOSE Routine 10/16/2021 7:26 AM EST COMPREHENSIVE METABOLIC Routine 10/16/2021 3:51 AM EST PHOSPHORUS Routine 10/16/2021 3:51 AM EST MAGNESIUM Routine 10/16/2021 3:51 AM EST CBC WITH 5 PART DIFF Routine 10/16/2021 3:51 AM EST PROTHROMBIN TIME Routine 10/16/2021 3:51 AM EST GLUCOSE Routine 10/15/2021 8:19 PM EST GLUCOSE Routine 10/15/2021 4:04 PM EST GLUCOSE Routine 10/15/2021 11:11 AM EST GLUCOSE Routine 10/15/2021 7:40 AM EST GLUCOSE Routine 10/14/2021 8:29 PM EST GLUCOSE Routine 10/14/2021 4:09 PM EST GLUCOSE Routine 10/14/2021 1:28 PM EST GLUCOSE Routine 10/14/2021 11:35 AM EST GLUCOSE Routine 10/14/2021 7:24 AM EST MAGNESIUM Routine 10/14/2021 5:00 AM EST GLUCOSE Routine 10/13/2021 7:56 PM EST GLUCOSE Routine 10/13/2021 4:01 PM EST GLUCOSE Routine 10/13/2021 11:39 AM EST GLUCOSE Routine 10/13/2021 7:44 AM EST CPK Routine 10/13/2021 3:46 AM EST BASIC METABOLIC PANEL Routine 10/13/2021 3:46 AM EST PHOSPHORUS Routine 10/13/2021 3:46 AM EST MAGNESIUM Routine 10/13/2021 3:46 AM EST CBC WITH 5 PART DIFF Routine 10/13/2021 3:46 AM EST GLUCOSE Routine 10/12/2021 7:36 PM EST GLUCOSE Routine 10/12/2021 3:51 PM EST GLUCOSE Routine 10/12/2021 11:09 AM EST GLUCOSE Routine 10/12/2021 8:32 AM EST GLUCOSE Routine 10/12/2021 7:35 AM EST COMPREHENSIVE METABOLIC Routine 10/12/2021 4:53 AM EST CBC W/O DIFFERENTIAL Routine 10/12/2021 4:53 AM EST GLUCOSE Routine 10/11/2021 8:57 PM EST GLUCOSE Routine 10/11/2021 4:42 PM EST GLUCOSE Routine 10/11/2021 10:59 AM EST GLUCOSE Routine 10/11/2021 10:10 AM EST GLUCOSE Routine 10/11/2021 7:28 AM EST COMPREHENSIVE METABOLIC Routine 10/11/2021 5:10 AM EST PHOSPHORUS Routine 10/11/2021 5:10 AM EST MAGNESIUM Routine 10/11/2021 5:10 AM EST CBC WITH 5 PART DIFF Routine 10/11/2021 5:10 AM EST GLUCOSE Routine 10/10/2021 9:22 PM EST GLUCOSE Routine 10/10/2021 4:45 PM EST GLUCOSE Routine 10/10/2021 12:00 PM EST GLUCOSE Routine 10/10/2021 8:09 AM EST COMPREHENSIVE METABOLIC Routine 10/10/2021 5:00 AM EST PHOSPHORUS Routine 10/10/2021 5:00 AM EST MAGNESIUM Routine 10/10/2021 5:00 AM EST CBC WITH 5 PART DIFF Routine 10/10/2021 5:00 AM EST GLUCOSE Routine 10/09/2021 9:01 PM EST GLUCOSE Routine 10/09/2021 4:52 PM EST GLUCOSE Routine 10/09/2021 11:18 AM EST GLUCOSE Routine 10/09/2021 7:51 AM EST BASIC METABOLIC PANEL Routine 10/09/2021 5:00 AM EST PHOSPHORUS Routine 10/09/2021 5:00 AM EST MAGNESIUM Routine 10/09/2021 5:00 AM EST CBC W/O DIFFERENTIAL Routine 10/09/2021 5:00 AM EST GLUCOSE Routine 10/08/2021 10:12 PM EST GLUCOSE Routine 10/08/2021 4:29 PM EST GLUCOSE Routine 10/08/2021 11:05 AM EST CBC WITH 5 PART DIFF Routine 10/08/2021 10:29 AM EST CHEST, PORTABLE Routine 10/08/2021 8:09 AM EST GLUCOSE Routine 10/08/2021 8:00 AM EST BASIC METABOLIC PANEL Routine 10/08/2021 6:34 AM EST PHOSPHORUS Routine 10/08/2021 6:34 AM EST MAGNESIUM Routine 10/08/2021 6:34 AM EST GLUCOSE Routine 10/07/2021 10:43 PM EST GLUCOSE Routine 10/07/2021 4:15 PM EST GLUCOSE Routine 10/07/2021 11:28 AM EST GLUCOSE Routine 10/07/2021 7:29 AM EST COMPREHENSIVE METABOLIC Routine 10/07/2021 3:20 AM EST PHOSPHORUS Routine 10/07/2021 3:20 AM EST MAGNESIUM Routine 10/07/2021 3:20 AM EST CBC WITH 5 PART DIFF Routine 10/07/2021 3:20 AM EST GLUCOSE Routine 10/06/2021 9:27 PM EST GLUCOSE Routine 10/06/2021 5:00 PM EST GLUCOSE Routine 10/06/2021 10:59 AM EST GLUCOSE Routine 10/06/2021 7:42 AM EST COMPREHENSIVE METABOLIC Routine 10/06/2021 4:54 AM EST PHOSPHORUS Routine 10/06/2021 4:54 AM EST MAGNESIUM Routine 10/06/2021 4:54 AM EST CBC WITH 5 PART DIFF Routine 10/06/2021 4:54 AM EST GLUCOSE Routine 10/05/2021 8:59 PM EST GLUCOSE Routine 10/05/2021 3:41 PM EST GLUCOSE Routine 10/05/2021 11:56 AM EST GLUCOSE Routine 10/05/2021 8:03 AM EST COMPREHENSIVE METABOLIC Routine 10/05/2021 5:00 AM EST PHOSPHORUS Routine 10/05/2021 5:00 AM EST MAGNESIUM Routine 10/05/2021 5:00 AM EST CBC WITH 5 PART DIFF Routine 10/05/2021 5:00 AM EST GLUCOSE Routine 10/04/2021 8:37 PM EST GLUCOSE Routine 10/04/2021 4:09 PM EST GLUCOSE Routine 10/04/2021 11:06 AM EST GLUCOSE Routine 10/04/2021 8:01 AM EST COMPREHENSIVE METABOLIC Routine 10/04/2021 4:45 AM EST PHOSPHORUS Routine 10/04/2021 4:45 AM EST MAGNESIUM Routine 10/04/2021 4:45 AM EST CBC WITH 5 PART DIFF Routine 10/04/2021 4:45 AM EST GLUCOSE Routine 10/03/2021 9:24 PM EST GLUCOSE Routine 10/03/2021 4:18 PM EST GLUCOSE Routine 10/03/2021 12:27 PM EST GLUCOSE Routine 10/03/2021 7:55 AM EST COMPREHENSIVE METABOLIC Routine 10/03/2021 4:59 AM EST PHOSPHORUS Routine 10/03/2021 4:59 AM EST MAGNESIUM Routine 10/03/2021 4:59 AM EST CBC WITH 5 PART DIFF Routine 10/03/2021 4:59 AM EST GLUCOSE Routine 10/02/2021 10:56 PM EST GLUCOSE Routine 10/02/2021 5:54 PM EST GLUCOSE Routine 10/02/2021 3:32 PM EST GLUCOSE Routine 10/02/2021 11:30 AM EST GLUCOSE Routine 10/02/2021 8:21 AM EST CALCITONIN Routine 10/02/2021 5:13 AM EST COMPREHENSIVE METABOLIC Routine 10/02/2021 5:13 AM EST TRIGLYCERIDES Routine 10/02/2021 5:13 AM EST PHOSPHORUS Routine 10/02/2021 5:13 AM EST MAGNESIUM Routine 10/02/2021 5:13 AM EST CBC W/O DIFFERENTIAL Routine 10/02/2021 5:13 AM EST GLUCOSE Routine 10/01/2021 9:55 PM EST GLUCOSE Routine 10/01/2021 5:19 PM EST ARTERIAL BLOOD GAS Routine 10/01/2021 4: 46 PM EST GLUCOSE Routine 10/01/2021 11:51 AM EST CHEST, PORTABLE Routine 10/01/2021 9:36 AM EST CBC W/O DIFFERENTIAL Routine 10/01/2021 5:00 AM EST BASIC METABOLIC PANEL Routine 10/01/2021 5:00 AM EST PHOSPHORUS Routine 10/01/2021 5:00 AM EST MAGNESIUM Routine 10/01/2021 5:00 AM EST GLUCOSE Routine 09/30/2021 9:35 PM EST GLUCOSE Routine 09/30/2021 3:39 PM EST GLUCOSE Routine 09/30/2021 11:33 AM EST GLUCOSE Routine 09/30/2021 8:53 AM EST BASIC METABOLIC PANEL Routine 09/30/2021 2:54 AM EST PHOSPHORUS Routine 09/30/2021 2:54 AM EST MAGNESIUM Routine 09/30/2021 2:54 AM EST CBC WITH 5 PART DIFF Routine 09/30/2021 2:54 AM EST GLUCOSE Routine 09/29/2021 8:21 PM EST GLUCOSE Routine 09/29/2021 4:55 PM EST GLUCOSE Routine 09/29/2021 11:25 AM EST GLUCOSE Routine 09/29/2021 10:00 AM EST COMPREHENSIVE METABOLIC Routine 09/29/2021 3:35 AM EST CBC W/O DIFFERENTIAL Routine 09/29/2021 3:35 AM EST GLUCOSE Routine 09/28/2021 9:09 PM EST GLUCOSE Routine 09/28/2021 3:38 PM EST GLUCOSE Routine 09/28/2021 11:34 AM EST GLUCOSE Routine 09/28/2021 8:14 AM EST GLUCOSE Routine 09/28/2021 5:20 AM EST COMPREHENSIVE METABOLIC Routine 09/28/2021 2:27 AM EST PHOSPHORUS Routine 09/28/2021 2:27 AM EST MAGNESIUM Routine 09/28/2021 2:27 AM EST CBC WITH 5 PART DIFF Routine 09/28/2021 2:27 AM EST GLUCOSE Routine 09/27/2021 9:02 PM EST GLUCOSE Routine 09/27/2021 5:[address] PE PROTOCOL CHEST W/ CONTRAST Routine 09/27/2021 2:18 PM EST GLUCOSE Routine 09/27/2021 11:43 AM EST GLUCOSE Routine 09/27/2021 9:19 AM EST COMPREHENSIVE METABOLIC Routine 09/26/2021 5:10 AM EST SED RATE (ESR) Routine 09/26/2021 5:10 AM EST CBC W/O DIFFERENTIAL Routine 09/26/2021 5:10 AM EST CRP-INFLAMMATION Routine 09/26/2021 5:10 AM EST INTERLEUKIN 6 Routine 09/26/2021 5:10 AM EST FERRITIN Routine 09/26/2021 5:10 AM EST CBC INCLUDES DIFFERENTIAL AND PLATELET COUNT Routine 09/15/2021 11:25 AM EST Acquired hemolytic anemia COMPREHENSIVE METABOLIC PANEL WITH GFR Routine 09/15/2021 11:25 AM EST Acquired hemolytic anemia VENIPUNCTURE Routine 09/15/2021 11:25 AM EST Acquired hemolytic anemia CBC INCLUDES DIFFERENTIAL AND PLATELET COUNT Routine 08/16/2021 7:21 AM EDT Acquired hemolytic anemia COMPREHENSIVE METABOLIC PANEL WITH GFR Routine 08/16/2021 7:21 AM EDT Acquired hemolytic anemia VENIPUNCTURE Routine 08/16/2021 7:21 AM EDT Acquired hemolytic anemia CBC INCLUDES DIFFERENTIAL AND PLATELET COUNT Routine 08/09/2021 7:28 AM EDT Acquired hemolytic anemia COMPREHENSIVE METABOLIC PANEL WITH GFR Routine 08/09/2021 7:28 AM EDT Acquired hemolytic anemia VENIPUNCTURE Routine 08/09/2021 7:28 AM EDT Acquired hemolytic anemia CBC INCLUDES DIFFERENTIAL AND PLATELET COUNT Routine 08/06/2021 7:30 AM EDT Acquired hemolytic anemia COMPREHENSIVE METABOLIC PANEL WITH GFR Routine 08/06/2021 7:30 AM EDT Acquired hemolytic anemia VENIPUNCTURE Routine 08/06/2021 7:30 AM EDT Acquired hemolytic anemia LACTATE DEHYDROGENASE (LDH), SERUM Routine 08/02/2021 7:17 AM EDT Acquired hemolytic anemia COMPREHENSIVE METABOLIC PANEL WITH GFR Routine 08/02/2021 7:17 AM EDT Acquired hemolytic anemia VENIPUNCTURE Routine 08/02/2021 7:17 AM EDT Acquired hemolytic anemia CBC INCLUDES DIFFERENTIAL AND PLATELET COUNT Routine 07/30/2021 7:25 AM EDT Acquired hemolytic anemia COMPREHENSIVE METABOLIC PANEL WITH GFR Routine 07/30/2021 7:25 AM EDT Acquired hemolytic anemia VENIPUNCTURE Routine 07/30/2021 7:25 AM EDT Acquired hemolytic anemia CBC INCLUDES DIFFERENTIAL AND PLATELET COUNT Routine 07/27/2021 7:19 AM EDT Acquired hemolytic anemia COMPREHENSIVE METABOLIC PANEL WITH GFR Routine 07/27/2021 7:19 AM EDT Acquired hemolytic anemia VENIPUNCTURE Routine 07/27/2021 7:19 AM EDT Acquired hemolytic anemia CBC INCLUDES DIFFERENTIAL AND PLATELET COUNT Routine 01/19/2021 7:47 AM EDT Acquired hemolytic anemia COMPREHENSIVE METABOLIC PANEL WITH GFR Routine 01/19/2021 7:47 AM EDT Acquired hemolytic anemia VENIPUNCTURE Routine 01/19/2021 7:47 AM EDT Acquired hemolytic anemia COMPREHENSIVE METABOLIC PANEL WITH GFR Routine 12/04/2020 7:27 AM EST Acquired hemolytic anemia CBC INCLUDES DIFFERENTIAL AND PLATELET COUNT Routine 12/04/2020 7:27 AM EST Acquired hemolytic anemia VENIPUNCTURE Routine 12/04/2020 7:27 AM EST Acquired hemolytic anemia COMPREHENSIVE METABOLIC PANEL WITH GFR Routine 10/17/2020 7:17 AM EST Acquired hemolytic anemia CBC INCLUDES DIFFERENTIAL AND PLATELET COUNT Routine 10/17/2020 7:17 AM EST Acquired hemolytic anemia VENIPUNCTURE Routine 10/17/2020 7:17 AM EST Acquired hemolytic anemia SURGICAL PATHOLOGY DERM Routine 09/08/2020 3:36 PM EST CBC INCLUDES DIFFERENTIAL AND PLATELET COUNT Routine 08/18/2020 10:38 AM EDT Acquired hemolytic anemia LACTATE DEHYDROGENASE (LDH), SERUM Routine 08/18/2020 10:38 AM EDT Acquired hemolytic anemia COMPREHENSIVE METABOLIC PANEL WITH GFR Routine 08/18/2020 10:38 AM EDT Acquired hemolytic anemia DESTRUCTION, MALIGNANT LESION, TRUNK, ARMS OR LEGS; DIAMETER 1.1 TO 2.0 CM Routine 06/23/2020 3:46 PM EDT Basal cell carcinoma of trunk SURGICAL PATHOLOGY DERM Routine 06/07/2020 10:30 AM EDT COMPREHENSIVE METABOLIC PANEL WITH GFR Routine 04/17/2020 8:39 AM EDT Acquired hemolytic anemia LACTATE DEHYDROGENASE (LDH), SERUM Routine 04/17/2020 8:39 AM EDT Acquired hemolytic anemia VENIPUNCTURE Routine 04/17/2020 8:39 AM EDT Acquired hemolytic anemia CBC INCLUDES DIFFERENTIAL AND PLATELET COUNT Routine 11/29/2019 7:29 AM EST Acquired hemolytic anemia LACTATE DEHYDROGENASE (LDH), SERUM Routine 11/29/2019 7:29 AM EST Acquired hemolytic anemia VENIPUNCTURE Routine 11/29/2019 7:29 AM EST Acquired hemolytic anemia CBC INCLUDES DIFFERENTIAL AND PLATELET COUNT Routine 10/29/2019 8:17 AM EST Acquired hemolytic anemia LACTATE DEHYDROGENASE (LDH), SERUM Routine 10/29/2019 8:17 AM EST Acquired hemolytic anemia VENIPUNCTURE Routine 10/29/2019 8:17 AM EST Acquired hemolytic anemia CBC INCLUDES DIFFERENTIAL AND PLATELET COUNT Routine 10/02/2019 10:26 AM EST Acquired hemolytic anemia LACTATE DEHYDROGENASE (LDH), SERUM Routine 10/02/2019 10:26 AM EST Acquired hemolytic anemia VENIPUNCTURE Routine 10/02/2019 10:26 AM EST Acquired hemolytic anemia BILIRUBIN, TOTAL, SERUM (ADULT) Routine 08/29/2019 10:27 AM EDT Acquired hemolytic anemia LACTATE DEHYDROGENASE (LDH), SERUM Routine 08/29/2019 10:27 AM EDT Acquired hemolytic anemia VENIPUNCTURE Routine 08/29/2019 10:27 AM EDT Acquired hemolytic anemia COMPREHENSIVE METABOLIC PANEL WITH GFR Routine 07/30/2019 8:18 AM EDT Acquired hemolytic anemia LACTATE DEHYDROGENASE (LDH), SERUM Routine 07/30/2019 8:18 AM EDT Acquired hemolytic anemia VENIPUNCTURE Routine 07/30/2019 8:18 AM EDT Acquired hemolytic anemia COMPREHENSIVE METABOLIC PANEL WITH GFR Routine 06/29/2019 3:20 PM EDT Acquired hemolytic anemia LACTATE DEHYDROGENASE (LDH), SERUM Routine 06/29/2019 3:20 PM EDT Acquired hemolytic anemia CBC INCLUDES DIFFERENTIAL AND PLATELET COUNT Routine 06/29/2019 3:20 PM EDT Acquired hemolytic anemia COMPREHENSIVE METABOLIC PANEL WITH GFR Routine 04/09/2019 6:18 PM EDT Acquired hemolytic anemia LACTATE DEHYDROGENASE (LDH), SERUM Routine 04/09/2019 6:18 PM EDT Acquired hemolytic anemia CBC INCLUDES DIFFERENTIAL AND PLATELET COUNT Routine 04/09/2019 6:18 PM EDT Acquired hemolytic anemia CBC INCLUDES DIFFERENTIAL AND PLATELET COUNT STAT (All results called to provider) 02/24/2019 3:04 PM EDT Acquired hemolytic anemia CBC INCLUDES DIFFERENTIAL AND PLATELET COUNT STAT (All results called to provider) 02/17/2019 11:32 AM EDT Acquired hemolytic anemia CBC INCLUDES DIFFERENTIAL AND PLATELET COUNT STAT (All results called to provider) 02/11/2019 8:18 AM EDT Acquired hemolytic anemia CBC INCLUDES DIFFERENTIAL AND PLATELET COUNT STAT (All results called to provider) 02/10/2019 8:22 AM EDT Acquired hemolytic anemia BLOOD TYPE AND ANTIBODY SCREEN Routine 02/09/2019 12:45 PM EDT LDH Routine 02/09/2019 12:45 PM EDT BILIRUBIN, TOTAL Routine 02/09/2019 12:4 5 PM EDT CBC WITH 5 PART DIFF Routine 02/09/2019 12:45 PM EDT COMPREHENSIVE METABOLIC PANEL WITH GFR Routine 02/08/2019 5:46 PM EDT Acquired hemolytic anemia CBC INCLUDES DIFFERENTIAL AND PLATELET COUNT Routine 02/08/2019 5:46 PM EDT Acquired hemolytic anemia LACTATE DEHYDROGENASE (LDH), SERUM Routine 02/08/2019 5:43 PM EDT Acquired hemolytic anemia BILIRUBIN, TOTAL, SERUM (ADULT) Routine 02/06/2019 12:35 PM EDT Acquired hemolytic anemia LACTATE DEHYDROGENASE (LDH), SERUM Routine 02/06/2019 12:35 PM EDT Acquired hemolytic anemia CBC INCLUDES DIFFERENTIAL AND PLATELET COUNT Routine 02/06/2019 12:35 PM EDT Acquired hemolytic anemia COMPREHENSIVE METABOLIC PANEL WITH GFR Routine 01/18/2019 5:52 PM EDT Acquired hemolytic anemia CBC INCLUDES DIFFERENTIAL AND PLATELET COUNT Routine 01/18/2019 5:52 PM EDT Acquired hemolytic anemia LACTATE DEHYDROGENASE (LDH), SERUM Routine 01/18/2019 5:51 PM EDT Acquired hemolytic anemia CULTURE, URINE, ROUTINE Routine 12/25/2018 1:34 PM EST URINALYSIS, MICROSCOPIC WITH REFLEX CULTURE Routine 12/25/2018 1:34 PM EST URINALYSIS DIP W/ REFLEX TO MICROSCOPIC+CULTURE Routine 12/25/2018 1:34 PM EST Urinary frequency LACTATE DEHYDROGENASE (LDH), SERUM Routine 12/12/2018 2:19 PM EST Acquired hemolytic anemia COMPREHENSIVE METABOLIC PANEL WITH GFR Routine 12/12/2018 2:19 PM EST Acquired hemolytic anemia CBC INCLUDES DIFFERENTIAL AND PLATELET COUNT Routine 12/12/2018 2:19 PM EST Acquired hemolytic anemia DIFFERENTIAL, MANUAL ONLY Routine 11/27/2018 7:50 AM EST LACTATE DEHYDROGENASE (LDH), SERUM Routine 11/27/2018 7:50 AM EST Acquired hemolytic anemia CBC INCLUDES DIFFERENTIAL AND PLATELET COUNT Routine 11/27/2018 7:50 AM EST Acquired hemolytic anemia HEPATIC FUNCTION PANEL (ALT,AST,ALK PH,BILI'S,TP,ALB) Routine 11/24/2018 3:56 PM EST Acquired hemolytic anemia LACTATE DEHYDROGENASE (LDH), SERUM Routine 11/24/2018 3:56 PM EST Acquired hemolytic anemia CBC INCLUDES DIFFERENTIAL AND PLATELET COUNT Routine 11/24/2018 3:56 PM EST Acquired hemolytic anemia COMPREHENSIVE METABOLIC PANEL WITH GFR Routine 11/23/2018 5:04 PM EST Acquired hemolytic anemia LACTATE DEHYDROGENASE (LDH), SERUM Routine 11/23/2018 5:04 PM EST Acquired hemolytic anemia CBC INCLUDES DIFFERENTIAL AND PLATELET COUNT Routine 11/23/2018 5:04 PM EST Acquired hemolytic anemia COMPREHENSIVE METABOLIC PANEL WITH GFR Routine 11/09/2018 5:43 PM EST Acquired hemolytic anemia CBC INCLUDES DIFFERENTIAL AND PLATELET COUNT Routine 11/09/2018 5:43 PM EST Acquired hemolytic anemia LACTATE DEHYDROGENASE (LDH), SERUM Routine 11/09/2018 5:42 PM EST Acquired hemolytic anemia COMPREHENSIVE METABOLIC PANEL WITH GFR Routine 10/05/2018 5:58 PM EST Acquired hemolytic anemia CBC INCLUDES DIFFERENTIAL AND PLATELET COUNT Routine 10/05/2018 5:58 PM EST Acquired hemolytic anemia LACTATE DEHYDROGENASE (LDH), SERUM Routine 10/05/2018 5:57 PM EST Acquired hemolytic anemia BILIRUBIN, TOTAL, SERUM (ADULT) Routine 08/31/2018 1:57 PM EDT Acquired hemolytic anemia CBC INCLUDES DIFFERENTIAL AND PLATELET COUNT Routine 08/31/2018 1:57 PM EDT Acquired hemolytic anemia LACTATE DEHYDROGENASE (LDH), SERUM Routine 08/31/2018 1:56 PM EDT Acquired hemolytic anemia CBC INCLUDES DIFFERENTIAL AND PLATELET COUNT Routine 08/03/2018 5:45 PM EDT Acquired hemolytic anemia (HCC) BILIRUBIN, TOTAL, SERUM (ADULT) Routine 08/03/2018 5:45 PM EDT Acquired hemolytic anemia (HCC) LACTATE DEHYDROGENASE (LDH), SERUM Routine 08/03/2018 5:45 PM EDT Acquired hemolytic anemia (HCC) BILIRUBIN, TOTAL, SERUM (ADULT) Routine 07/07/2018 3:12 PM EDT Acquired hemolytic anemia LACTATE DEHYDROGENASE (LDH), SERUM Routine 07/07/2018 3:12 PM EDT Acquired hemolytic anemia CBC INCLUDES DIFFERENTIAL AND PLATELET COUNT Routine 07/07/2018 3:12 PM EDT Acquired hemolytic anemia US ABDOMEN COMPLETE (DX: ABDOMINAL PAIN) (WITHIN 1 WK) Routine 06/18/2018 4:40 PM EDT Acquired hemolytic anemia BILIRUBIN, TOTAL, SERUM (ADULT) Routine 06/10/2018 11:05 AM EDT Acquired hemolytic anemia CBC INCLUDES DIFFERENTIAL AND PLATELET COUNT Routine 06/10/2018 11:05 AM EDT Acquired hemolytic anemia LACTATE DEHYDROGENASE (LDH), SERUM Routine 06/10/2018 10:56 AM EDT Acquired hemolytic anemia DIFFERENTIAL, MANUAL Routine 05/12/2018 1:50 PM EDT BILIRUBIN, TOTAL, SERUM (ADULT) Routine 05/12/2018 1:50 PM EDT Acquired hemolytic anemia LACTATE DEHYDROGENASE (LDH), SERUM Routine 05/12/2018 1:50 PM EDT Acquired hemolytic anemia CBC WITH MANUAL DIFF Routine 05/12/2018 1:50 PM EDT Acquired hemolytic anemia CBC INCLUDES DIFFERENTIAL AND PLATELET COUNT Routine 05/05/2018 3:24 PM EDT Acquired hemolytic anemia LACTATE DEHYDROGENASE (LDH), SERUM Routine 02/07/2018 11:49 AM EDT Acquired hemolytic anemia HEPATIC FUNCTION PANEL (ALT,AST,ALK PH,BILI'S,TP,ALB) Routine 02/07/2018 11:49 AM EDT Acquired hemolytic anemia CBC INCLUDES DIFFERENTIAL AND PLATELET COUNT Routine 02/07/2018 11:49 AM EDT Acquired hemolytic anemia Results * Due to [place] state law, this organization might not be sharing negative HIV tests. * (ABNORMAL) CBC (H/H, RBC, INDICES,WBC, PLT) (06/14/2025 10:39 AM EDT) Only the most recent of9 resultswithin the time period is included. WBC 6.6 3.8 - 10.8 Thousand/ uL [...] 9:40 PM EDT Narrative Resulting Agency Comment [id number] Prince Owens MD LAB SAME DAY RESULT Final Result Performing Organization Address [facility] Co de Phone Number [facility] [address] [place] [address] * LACTATE DEHYDROGENASE (LDH), SERUM (06/14/2025 10:39 AM EDT) Only the most recent of94 resultswithin the time period is included. Lactate dehydrogenase 186 120 - 250 U/L [facility] 06/14/2025 10:3 9 AM EDT 06/14/2025 9:40 PM EDT Narrative Resulting Agency Comment [id number] Prince Owens MD LABORATORY Final Resu lt Performing Organization Address [facility] de Phone Number [facility] [address] [place] [address] * (ABNORMAL) COMPREHENSIVE METABOLIC PANEL WITH GFR (06/14/2025 10:39 AM EDT) Only the most recent of72 resultswithin the time period is included. Glucose 173(H) 65 - 99 mg/dL [facility] [...] 73m2 [facility] BUN/Creatinine Ratio SEE NOTE: (calc) [facility] Comment: Not Reported: BUN [...] needs for GFR calculation. Resulting Agency Comment [id number] us Prince Owens MD LABORATORY Final Resu lt [facility] [address] [place] [address] * XRAY CHEST, 2 VIEWS, PA & LATERAL (DX: COUGH) (03/28/2025 6:24 PM EDT) Anatomical Region Laterality Modality CHEST Computed Radiogr aphy Narrative 03/28/2025 7:37 PM EDT Patient History: Cough CONTRAST: Exam: 2 view of the chest Comparison: None Findings: Reticulonodular opacities in the left upper lobe which may represent atelectasis/scarring with elevation of the left hilum Cardiac silhouette is not enlarged. No pneumothorax. No pleural fluid collection. No acute infiltrate Impression: 1. No acute cardiopulmonary disease seen. Procedure Note Dixie Hawley MD - 03/28/2025 Patient History: Cough CONTRAST: Exam: 2 view of the chest Comparison: None Findings: Reticulonodular opacities in the left upper lobe which may representatelectasis/scarring with elevation of the left hilum Cardiac silhouette is not enlarged. No pneumothorax. No pleural fluid collection. No acute infiltrate Impression: 1. No acute cardiopulmonary disease seen. us Howard Boogie MD IMG XRAY NO CONTRAST ORDERABLES Final Result * COVID19 AND INFLUENZA A AND B PCR ([facility]) (03/28/2025 6:00 PM EDT) Pathologist [facility] COVID-19 PCR NOT DETECTED Influenza A NOT DETECTED Influenza B NOT DETECTED 03/28/2025 6:00 PM EDT us Howard Boogie MD [facility] Final Result * (ABNORMAL) ERYTHROCYTE SEDIMENTATION RATE (ESR) (03/28/2025 6:00 PM EDT) Pathologist [facility] Sedimentation Rate [place] (ESR) 30(H) < OR = 20 mm/h [facility] 03/28/2025 6:00 PM EDT 03/28/2025 6:25 PM EDT Narrative Resulting Agency Comment [id number] Result Charlene Boogie MD LAB SAME DAY RESULT Final Result [facility] [address] [place] [address] * (ABNORMAL) RETICULOCYTE COUNT (03/28/2025 6:00 PM EDT) Pathologist [facility] Reticulocytes/100 erythrocytes (RBC) 15.8 % [facility] Reticulocytes (RBC) 399602(H) 90461 - 35486 cells/uL [facility] 03/28/2025 6:00 PM EDT 03/28/2025 6:25 PM EDT Narrative Resulting Agency Comment [id number] us Howard Boogie MD LABORATORY Final Result [facility] [address] [place] [address] * (ABNORMAL) CBC INCLUDES DIFFERENTIAL AND PLATELET COUNT (03/28/2025 6:00 PM EDT) Only the most recent of97 resultswithin the time period is included. WBC 5.0 3.8 - 10.8 Thousand/ uL [facility] RBC 2.22(L) 4.20 - 5.80 Million/u L [facility] Hemoglobin 7.5(L) 13.2 - 17.1 g/dL [facility] Hematocrit 24.3(L) 38.5 - 50.0 % [facility] MCV 109.5(H) 80.0 - 100.0 fL [facility] MCH 33.8(H) 27.0 - 33.0 pg [facility] MCHC 30.9(L) 32.0 - 36.0 g/dL [facility] Comment: For adults, a slight decrease in the calculated MCHC value (in the range of 30 to 32 g/dL) is most likely not clinically significant; however, it should be interpreted with caution in correlation with other red cell parameters and the patient's clinical condition. RDW 16.8(H) 11.0 - 15.0 % [facility] PLT 231 140 - 400 Thousand/ uL [facility] MPV 9.7 7.5 - 12.5 fL [facility] Neutrophils # 3150 1500 - 7800 cells/uL [facility] Bands # 100 0 - 750 cells/uL [facility] Lymphocytes # 1350 850 - 3900 cells/uL [facility] Monocytes # 350 200 - 950 cells/uL [facility] Eosinophils # 50 15 - 500 cells/uL [facility] Basophils # 0 0 - 200 cells/uL [facility] Neutrophils % 63 % [facility] Band Neutrophils % 2 % [facility] Lymphocytes % 25 % [facility] Atypical Lymphocytes % 2 0 - 10 % [facility] Monocytes % 7 % [facility] Eosinophils % 1 % [facility] Basophils % 0 % [facility] Service comment 01 SEE NOTE [facility] Comment: The smear has been manually reviewed and the manual differential has been reported. 03/28/2025 6:00 PM EDT 03/28/2025 6:25 PM EDT Narrative Resulting Agency Comment [id number] us Howard Boogie MD LAB SAME DAY RESULT Final Result Performing Organization Address [facility] [employer]/ZIP Co de Phone Number [facility] [address] [place] [address] * TRANSFUSION OF BLOOD PRODUCT (02/25/2024 7:26 AM EDT) RED BLOOD CELL PRODUCT Patient Name: VINICIUS MCCULLOUGH Location: [facility] Carpenter'S Helper(s): [address] [place] [phone]- Ordering Physician: DELPHINE YU, LEV Laboratory Results Blood Bank Collected Date/Time Specimen Type 02/25/2024 07:26 EDT Blood Procedure Result Units Reference Verified Range Date/Time Red Cells Acknowledged 02/25/2024 [*1] 07:34 EDT # Units 1 [*1] 02/25/2024 07:34 EDT Performing Locations *1: This test was performed at: [facility], [address] [place] [address], [phone], , Legend: A = Abnormal, H = High, L = Low, ! = Critical, f = Footnote, r = Refere = Corrected, I = Interpretation [facility] 02/25/2024 7:26 AM EDT 02/25/2024 7:33 AM EDT Lev Akers MD PROCEDURES Final Result Performing Organization Address [facility]/ZIP Co de Phone Number [facility] [address] [place] [phone] * ABO/RH (02/24/2024 12:35 PM EDT) ABORH TYPE Patient Name: VINICIUS MCCULLOUGH Location: [facility] Carpenter'S Helper(s): [address] [place] [phone]- Ordering Physician: DELPHINE YU, LEV Laboratory Results Blood Bank Collected Date/Time Specimen Type 02/24/2024 12:35 EDT Blood Procedure Result Units Reference Verified Range Date/Time BB ID Number [id number] [*1] 02/24/2024 14:26 EDT [facility]/ A POS [*1] 02/24/2024 Tp 14:26 EDT Performing Locations *1: This test was performed at: [facility], [address] [place] [address], [phone], , Legend: A = Abnormal, H = High, L = Low, ! = Critical, f = Footnote, r = Refere = Corrected, I = Interpretation [facility] 02/24/2024 12:3 5 PM EDT 02/24/2024 1:20 PM EDT Lev Delphine YU LABORATORY Final Result [facility] [address] [place] [phone] * KRISTAN INDIRECT ANTIBODY SCREEN, RBC WITH REFLEX TO IDENTIFICATION AND TITER (02/24/2024 12:35 PM EDT) ANTIBODY SCREEN Patient Name: VINICIUS MCCULLOUGH Location: [facility] Carpenter'S Helper(s): [address] [place] [phone]- Ordering Physician: LEV AKERS MD Laboratory Results Blood Bank Collected Date/Time Specimen Type 02/24/2024 12:35 EDT Blood Procedure Result Units Reference Verified Range Date/Time Antibody Negative ABSC 02/24/2024 Screen [*1] 14:26 EDT Performing Locations *1: This test was performed at: [facility], [address] [place] [address], [phone], , Legend: A = Abnormal, H = High, L = Low, ! = Critical, f = Footnote, r = Refere = Corrected, I = Interpretation [facility] 02/24/2024 12:3 5 PM EDT 02/24/2024 1:20 PM EDT Lev Akers MD LABORATORY Final Result Performing Organization Address [facility]/ZIP Co de Phone Number [facility] [address] [place] [address] * (ABNORMAL) HEPATIC FUNCTION PANEL (ALT,AST,ALK PH,BILI'S,TP,ALB) (09/17/2023 1:27 PM EST) Only the most recent of3 resultswithin the time period is included. Protein Total (Serum) 6.8 6.1 - 8.1 g/dL [facility] Albumin 5.0 3.6 - 5.1 g/dL [facility] Globulin 1.8(L) 1.9 - 3.7 g/dL (calc) [facility] Albumin/Globulin 2.8(H) 1.0 - 2.5 (calc) [facility] Bilirubin Total 3.6(H) 0.2 - 1.2 mg/dL [facility] Bilirubin Direct 0.6(H) < OR = 0.2 mg/dL [facility] Bilirubin Indirect 3.0(H) 0.2 - 1.2 mg/dL (calc) [facility] Alkaline phosphatase 58 35 - 144 U/L [facility] AST (SGOT) 16 10 - 35 U/L [facility] ALT (SGPT) 18 9 - 46 U/L [facility] 09/17/2023 1:27 PM EST 09/17/2023 11:34 PM EST Narrative Resulting Agency Comment [id number] Prince Owens MD LABORATORY Final Resu lt Performing Organization Address City/[facility]/ZIP Co de Phone Number [facility] [address] [place] [address] * (ABNORMAL) BILIRUBIN, TOTAL, SERUM (ADULT) (08/15/2023 11:45 AM EDT) Only the most recent of19 resultswithin the time period is included. Bilirubin Total 1.9(H) 0.2 - 1.2 mg/dL [facility] 08/15/2023 11:4 5 AM EDT 08/15/2023 7:45 PM EDT Narrative Resulting Agency Comment [id number] Prince Owens MD LAB SAME DAY RESULT Final Result [facility] [address] [place] [address] * (ABNORMAL) COMPREHENSIVE METABOLIC PANEL, PLASMA (11/26/2022 [...] 9:39 AM EST Narrative Resulting Agency Comment [id number] Prince Owens MD LABORATORY Final Resu lt Performing Organization Address [facility] de Phone Number [facility] [address] [place] [phone] * DIFFERENTIAL, MANUAL (04/02/2022 2:06 PM EDT) Only the most recent of2 resultswithin the time period is included. Neutrophils # [id number] 1500 - 7800 cells/uL [...] 2:06 PM EDT 04/03/2022 12:44 AM EDT Prince Owens MD LABORATORY Final Resu lt Performing Organization Address [facility] Phone Number [facility] [address] [place] [address] * (ABNORMAL) CBC WITH MANUAL DIFF (04/02/2022 2:06 PM EDT) Only the most recent of2 resultswithin the time period is included. WBC 5.5 3.8 - 10.8 Thousand/u L [...] 12:44 AM EDT Narrative Resulting Agency Comment [id number] us Prince Owens MD LABORATORY Final Resu lt [facility] [address] [place] [address] * (ABNORMAL) GLUCOSE (11/17/2021 11:00 AM EST) Only the most recent of216 resultswithin the time period is included. [facility] Glucose (POC) 170(H) 70 - 99 mg/dL [facility] 11/17/2021 11:0 0 AM EST 11/17/2021 11:00 AM EST us Unknown Provider [facility] LABORATORY Final Resul t Performing Organization Address City/[facility]/ZIP Co de Phone Number [facility] [address] [place] [address] * (ABNORMAL) CBC W/O DIFFERENTIAL (11/16/2021 6:35 AM EST) Only the most recent of15 resultswithin the time period is included. [facility] WHITE BLOOD COUNT 5.8 3.9 - 11.0 x1000/uL [facility] RBC 2.56(L) 4.30 - 5.80 mil/ul [facility] Hemoglobin 7.7(L) 12.5 - 17.0 g/dL [facility] HCT (HEMATOCRIT) 26.4(L) 36.0 - 50.0 % [facility] MCV 103(H) 80 - [address] [facility] MCH 30 27 - 33 pg [facility] MCHC 29(L) 31 - 36 g/dL [facility] RDW 21.1(H) 11.4 - 14.4 % [facility] PLATELETS 220 150 - 450 x1000/uL [facility] 11/16/2021 6:35 AM EST 11/16/2021 6:35 AM EST us Unknown Provider [facility] LABORATORY Final Resul t Performing Organization Address [facility] Co de Phone Number [facility] [address] [place] [address] * PHOSPHORUS (11/09/2021 4:56 AM EST) Only the most recent of24 resultswithin the time period is included. PHOSPHATE 4.1 2.5 - 4.5 mg/dL [facility] 11/09/2021 4:56 AM EST 11/09/2021 4:56 AM EST us Rodrigo Carlin MD LABORATORY Final Result Performing Organization Address [facility] de Phone Number [facility] [address] [place] [address] * MAGNESIUM (11/09/2021 4:56 AM EST) Only the most recent of26 resultswithin the time period is included. MAGNESIUM 1.8 1.6 - 2.6 mg/dL [facility] 11/09/2021 4:56 AM EST 11/09/2021 4:56 AM EST us Rodrigo Carlin MD LABORATORY Final Result Performing Organization Address [facility] de Phone Number [facility] [address] [place] [address] * (ABNORMAL) BASIC METABOLIC PANEL (11/09/2021 4:56 AM EST) Only the most recent of19 resultswithin the time period is included. Glucose 89 65 - 99 mg/dL [facility] BUN 20 5 - 26 mg/dL [facility] CREATININE 0.59 0.5 - 1.5 mg/dL [facility] BUN/Creatinine Ratio 34(H) 8 - [address] [facility] GLOM FILT RATE, EST 109.3 >59 mL/min [facility] IF -GUTIERREZ N 126.6 >59 mL/min [facility] SODIUM 144 134 - 144 mEq/L [facility] POTASSIUM 4.4 3.6 - 5.6 mEq/L [facility] CHLORIDE 101 96 - 109 mEq/L [facility] CARBON DIOXIDE 37(H) 20 - 32 mEq/L [facility] ANION GAP 6.0(L) 8 - [address] [facility] CALCIUM 8.9 8.3 - 10.0 mg/dL [facility] 11/09/2021 4:56 AM EST 11/09/2021 4:56 AM EST us Rodrigo Carlin MD LABORATORY Final Result [facility] [address] [place] [address] * (ABNORMAL) COMPREHENSIVE METABOLIC (11/05/2021 5:55 AM EST) Only the most recent of15 resultswithin the time period is included. Glucose 106(H) 65 - 99 mg/dL [facility] BUN 18 5 - 26 mg/dL [facility] CREATININE 0.53 0.5 - 1.5 mg/dL [facility] GLOM FILT RATE, EST 114.2 >59 mL/min [facility] IF -GUAMANIAN 132.3 >59 mL/min [facility] SODIUM 143 134 - 144 mEq/L [facility] POTASSIUM 4.4 3.6 - 5.6 mEq/L [facility] CHLORIDE 102 96 - 109 mEq/L [facility] CARBON DIOXIDE 34(H) 20 - 32 mEq/L [facility] ANION GAP 7.0(L) 8 - [address] [facility] CALCIUM 8.4 8.3 - 10.0 mg/dL [facility] Total Protein 6.2 6.0 - 8.5 g/dL [facility] ALBUMIN 2.9(L) 3.6 - 4.8 g/dL [facility] BILIRUBIN TOTAL 1.8(H) 0.1 - 1.2 mg/dL [facility] ALKALINE PHOSPHATASE 95 25 - 160 U/L [facility] ALT (SGPT) 11 0 - 44 U/L [facility] AST (SGOT) 20 0 - 55 U/L [facility] COMMENT [facility] Comment: Specimen is slightly hemolyzed. The following tests may be affected: K+, AST, LDH, DBili, and UIBC. 11/05/2021 5:55 AM EST 11/05/2021 5:55 AM EST us Unknown Provider [facility] LABORATORY Final Resul t Performing Organization Address [facility] Co de Phone Number [facility] [address] [place] [address] * BLOOD TYPE AND ANTIBODY SCREEN (11/03/2021 11:20 AM EST) Only the most recent of4 resultswithin the time period is included. Pathologist [facility] BLOOD GROUP ABO A [facility] RH-(D) Positive [facility] ANTIBODY SCREEN Negative Negative [facility] 11/03/2021 11:2 0 AM EST 11/03/2021 11:20 AM EST us Domenico Grceo MD LABORATORY Final R esult Performing Organization Address [facility] Co de Phone Number [facility] [address] [place] [address] * (ABNORMAL) CBC WITH 5 PART DIFF (11/03/2021 6:00 AM EST) Only the most recent of28 resultswithin the time period is included. WHITE BLOOD COUNT 5.5 3.9 - 11.0 x1000/uL [facility] RBC 2.27(L) 4.30 - 5.80 mil/ul [facility] Hemoglobin 6.4(L) 12.5 - 17.0 g/dL [facility] Comment:Verified by repeat a nalysis of same specimen HCT (HEMATOCRIT) 22.7(L) 36.0 - 50.0 % [facility] Comment: Verified by repeat analysis of same specimen Critical value called and read back with at 0721 TO CORBY MCCULLOUGH RN BY AJAY . MCV 100 80 - [address] [facility] MCH 28 27 - 33 pg [facility] MCHC 28(L) 31 - 36 g/dL [facility] RDW 19.4(H) 11.4 - 14.4 % [facility] PLATELETS 300 150 - 450 x1000/uL [facility] MPV 9.1 7.0 - 11.[address] [facility] NEUTROPHILS 56 % [facility] LYMPHOCYTE % 32 % [facility] MONOCYTE % 8 % [facility] EOSINOPHIL % 4 % [facility] BASOPHIL % 0 % [facility] NEUTROPHILS (#) 3.1 1.8 - 7.0 x1000/uL [facility] LYMPHOCYTES # 1.8 0.7 - 4.5 x1000/uL [facility] MONOCYTES # 0.4 0.1 - 0.8 x1000/uL [facility] EOSINOPHILS # 0.2 0.0 - 0.4 x1000/uL [facility] BASOPHILS # 0.0 0.0 - 0.2 x1000/uL [facility] 11/03/2021 6:00 AM EST 11/03/2021 6:00 AM EST us Kathya Aldana'Mary Wang DO LABORATORY Final Re sult [facility] [address] [place] [phone] * CHEST, PORTABLE (11/02/2021 2:55 PM EST) Only the most recent of8 resultswithin the time period is included. RADIOLOGY REPORT [facility] Department of Radiology [address] [place] [address], [phone] Name: VINICIUS MCCULLOUGH : 60 Date of Service: 11/02/21 1554 Acct Number: [id number] Order Number: [id number] Location: [facility] Report Number: [id number] Service: ADM IN/MED Requesting Physician: Carina El i, MD Category: RADIOLOGY [facility] Exam: CHEST PORTABLE Signs/Symptoms: SHORTNESS OF BREATH Report Status: Signed STUDY: AP Portable chest, upright at 1549 hours INDICATION: SHORTNESS OF BREATH COMPARISON: Chest x-ray dated 11/02/2021 and 1334 hours FINDINGS: TUBES, LINES AND DEVICES: None. HEART AND MEDIASTINUM: The heart, aorta and mediastinal structures are unchanged. LUNGS: Again extensive parenchymal opacities are seen, with relatively low lung volumes. The degree of opacity in the left upper lung appears slightly progressed. Remaining lung opacities are similar. PLEURA: Questioned right sided pneumothorax is no longer evident. No pneumothorax. OSSEOUS STRUCTURES AND SOFT TISSUES: No acute osseous abnormality. IMPRESSION: 1. Slightly progressed appearance of the left upper lung opacity may be related to the patient's positioning. 2. Multifocal airspace disease is again seen. 3. No evidence of pneumothorax. Date/Time of Dictation: 11/02/21 155 Supervisor Of Communications (if applicable): Approved By Attending Radiologist: Pramod Claudio MD 11/02/21 1309 [facility] Department of Radiology [address] [place] [address], [phone] [facility] Anatomical Region Laterality Modality Other 11/02/2021 2:55 PM EST Narrative 11/02/2021 3:59 PM EST Reason for Study/History: Department of Radiology TEST(S) PROCESSED BY [facility] XRAY us Unknown Provider [facility] Final Resul t * ABDOMEN SINGLE AP VIEW (11/02/2021 12:51 PM EST) RADIOLOGY REPORT [facility] Department of Radiology [address] [place] [address], [phone] Name: VINICIUS MCCULLOUGH : 60 Date of Service: 11/02/21 1354 Acct Number: [id number] Order Number: [id number] Location: [facility] Report Number: [id number] Service: ADM IN/MED Requesting Physician: Michael Meza MD Category: RADIOLOGY [facility] Exam: ABDOMEN 1 VIEW Signs/Symptoms: ABDOMINAL DISTENTION Report Status: Signed Supine abdomen History: ABDOMINAL DISTENTION Comparison: None. Findings:The bowel gas pattern is normal. No obstruction or free air is seen. The bony structures appear intact. Visceral structures are intact. No soft tissue calcifications are seen. Impression: Normal bowel gas pattern. Date/Time of Dictation: 11/02/21 1354 Supervisor Of Communications (if applicable): Approved By Attending Radiologist: Pramod Claudio MD 11/02/21 1354 [facility] Department of Radiology [address] [place] [address], [phone] [facility] Anatomical Region Laterality Modality Other 11/02/2021 12:5 1 PM EST Narrative 11/02/2021 1:54 PM EST Reason for Study/History: Department of Radiology TEST(S) PROCESSED BY [facility] XRAY us Unknown Provider [facility] Final Resul t * (ABNORMAL) VENOUS BLOOD GAS (10/30/2021 5:00 PM EST) Only the most recent of2 resultswithin the time period is included. Specimen Source Venous [facility] PH (VENOUS BLOOD) 7.374 7.32 - 7.[address] [facility] PCO2 (VENOUS) 63.8(H) 41 - 51 mm/Hg [facility] PO2 (VENOUS) 38.5 30 - 42 mm/Hg [facility] HCO3 37.2(H) 23 - 28 mEq/L [facility] TOTAL CO2 (VENOUS) 39.2(H) 23 - 28 mEq/L [facility] O2 SATURATION (VENOUS) 69.1(L) 70 - 80 % [facility] BASE EXCESS (BLOOD) 10.[address] [facility] CRITICAL COMMENTS No [facility] 10/30/2021 5:00 PM EST 10/30/2021 5:00 PM EST us Kathya E O'Hernandez Kathleen DO LABORATORY Final Re sult [facility] [address] [place] [address] * (ABNORMAL) ARTERIAL BLOOD GAS (10/23/2021 4:17 PM EST) Only the most recent of4 resultswithin the time period is included. Specimen Source Arterial [facility] FIO2 [address] [facility] PH (ARTERIAL BLOOD) 7.409 7.38 - 7.[address] [facility] PCO2 50.7(H) 38 - 42 mm/Hg [facility] PO2 166.1(H) 85 - 95 mm/Hg [facility] HCO3 32.0(H) 23 - 28 mEq/L [facility] CO2 Total 33.6(H) 23 - 28 mEq/L [facility] O2 SATURATION 99.5(H) 95 - 97 % [facility] BASE EXCESS (BLOOD) 6.[address] [facility] CRITICAL COMMENTS No [facility] 10/23/2021 4:17 PM EST 10/23/2021 4:17 PM EST us Chase Angel MD LABORATORY Final Result Performing Organization Address City/[facility]/ZIP Co de Phone Number [facility] [address] [place] [address] * VANCOMYCIN (10/23/2021 8:20 AM EST) Only the most recent of3 resultswithin the time period is included. Pathologist [facility] VANCOMYCIN 4.5 ug/mL [facility] Comment:Trough range: 10 - 2 0 ug/mL for all dosing schedules. VANCOMYCIN TIME OF DRAW (PEAK OR TROUGH): Trough [facility] 10/23/2021 8:20 AM EST 10/23/2021 8:20 AM EST us Chase Angel MD LABORATORY Final Result Performing Organization Address City/[facility]/ZIP Co de Phone Number [facility] [address] [place] [address] * FOLATE (FOLIC ACID) (10/22/2021 4:55 AM EST) Only the most recent of2 resultswithin the time period is included. FOLATE 14.8 >3.0 ng/mL [facility] Comment: Normal: >5.4 Deficient: <3.4 Indeterminate: 3.4-5.4 A serum folate concentration of less than 3.1 ng/mL is considered to represent clinical deficiency. 10/22/2021 4:55 AM EST 10/22/2021 4:55 AM EST Jl Burgess MD LABORATORY Final Result Performing Organization Address City/[facility]/ZIP Co de Phone Number [facility] [address] [place] [address] * VITAMIN B12 (10/22/2021 4:55 AM EST) Only the most recent of2 resultswithin the time period is included. Pathologist [facility] VITB12 576 232 - 1,245 pg/mL [facility] 10/22/2021 4:55 AM EST 10/22/2021 4:55 AM EST Jl Burgess MD LABORATORY Final Result Performing Organization Address [facility] de Phone Number [facility] [address] [place] [phone] * (ABNORMAL) CBC WITH MANUAL DIFF (10/21/2021 5:40 AM EST) Pathologist [facility] WHITE BLOOD COUNT 9.9 3.9 - 11.0 x1000/uL [facility] RBC 2.59(L) 4.30 - 5.80 mil/ul [facility] Hemoglobin 7.4(L) 12.5 - 17.0 g/dL [facility] HCT (HEMATOCRIT) 24.7(L) 36.0 - 50.0 % [facility] MCV 95 80 - [address] [facility] MCH 29 27 - [address] [facility] MCHC 30(L) 31 - 36 g/dL [facility] RDW 16.7(H) 11.4 - 14.4 % [facility] PLATELETS 223 150 - 450 x1000/uL [facility] Comment:Platelet count verif ied by smear estimate MPV 9.8 7.0 - 11.[address] [facility] NEUTROPHIL % 83(H) 40 - 75 % [facility] Comment: Manual differential performed in accordance with review criteria. Please disregard previously reported automated differential results. BAND % 3 0 - 8 % [facility] METAMYELOCYTE % 0 0 % [facility] MYELOCYTE % 0 0 % [facility] PROMYELOCYTE % 0 0 % [facility] BLAST % 0 0 % [facility] LYMPHOCYTE % 6 % [facility] ATYPICAL LYMPHOCYTE % 0 0 - 7 % [facility] MONOCYTE % 5 % [facility] EOSINOPHIL % 3 % [facility] BASOPHIL % 0 % [facility] NEUTROPHILS # 8.2(H) 1.8 - 7.0 x1000/uL [facility] BANDS # 0.3 0 - 0.7 x1000/uL [facility] LYMPHOCYTES # 0.6(L) 0.7 - 4.5 x1000/uL [facility] MONOCYTES # 0.5 0.1 - 0.8 x1000/uL [facility] EOSINOPHILS # 0.3 0.0 - 0.4 x1000/uL [facility] BASOPHILS # 0.0 0.0 - 0.2 x1000/uL [facility] RBC MORPHOLOGY [facility] Comment: Anisocytosis (1+) Few polychromatophilic red cells (1+) NUCLEATED RBCS # [address] [facility] 10/21/2021 5:40 AM EST 10/21/2021 5:40 AM EST Jl Burgess MD LABORATORY Final Result [facility] [address] [place] [address] * MRSA SCREEN, ANY SOURCE (10/19/2021 4:07 PM EST) SOURCE Nose [facility] Result(s) Negative for Methicillin- resistant Staph aureus [facility] REPORT STATUS: Final [facility] 10/19/2021 4:07 PM EST 10/19/2021 4:07 PM EST us Jl Burgess MD LABORATORY Final Result [facility] [address] [place] [address] * CULTURE,SPUTUM (10/19/2021 4:07 PM EST) SOURCE Sputum [facility] GRAM STAIN Many (>25/lpf) WBC Few (1-9/lpf) Epithelial cells Good Quality Many (>25/hpf) Gram positive cocci Many (>25/hpf) Gram positive rods [facility] Result(s) Staphylococcus aureus - Heavy growth (4+) This Staphylococcus species is presumed to be resistant to clindamycin due to the demonstration of inducible clindamycin resistance in vitro. Clindamycin may still be an effective treatment in some patients. Staphylococcus species may develop resistance during prolonged therapy with quinolones. Therefore, isolates that are initially susceptible may become resistant within three to four days after initiation of therapy. Testing of repeat isolates may be warranted. Usual respiratory abisai present - Moderate growth (3+) [facility] REPORT STATUS: Final [facility] IDENTIFICATION Staphylococcus aureus - Heavy growth (4+) [facility] AMPICILLIN/SULBAC GODINEZ S [facility] CEFAZOLIN(ANCEF, KEFZOL) S [facility] CLINDAMYCIN R [facility] CIPROFLOXACIN S [facility] OXACILLIN S [facility] TETRACYCLINE S [facility] TRIMETHOPRIM/SULF A S [facility] VANCOMYCIN S [facility] 10/19/2021 4:07 PM EST 10/19/2021 4:07 PM EST Jl Burgess MD LABORATORY Final Result [facility] [address] [place] [address] * CULTURE, BLOOD #2 (10/19/2021 10:20 AM EST) SOURCE Venipuncture Anticubitis, Left [facility] Result(s) No growth after 5 days incubation [facility] REPORT STATUS: Final [facility] 10/19/2021 10:2 0 AM EST 10/19/2021 10:20 AM EST Jl Burgess MD LABORATORY Final Result Performing Organization Address [facility] de Phone Number [facility] [address] [place] [address] * CULTURE, BLOOD #1 (10/19/2021 10:10 AM EST) SOURCE Venipuncture Anticubitis, Right [facility] Result(s) No growth after 5 days incubation [facility] REPORT STATUS: Final [facility] 10/19/2021 10:1 0 AM EST 10/19/2021 10:10 AM EST Jl Burgess MD LABORATORY Final Result Performing Organization Address [facility] Phone Number [facility] [address] [place] [address] * TROPONIN T (10/19/2021 10:00 AM EST) Only the most recent of2 resultswithin the time period is included. Troponin T <0.030 ng/mL [facility] Comment: Reference Range: <0.030 Negative >= 0.1 Indicative of myocardial necrosis 10/19/2021 10:0 0 AM EST 10/19/2021 10:00 AM EST Jl Burgess MD LABORATORY Final Result Performing Organization Address [facility] de Phone Number [facility] [address] [place] [address] * (ABNORMAL) LDH (10/19/2021 10:00 AM EST) Only the most recent of2 resultswithin the time period is included. LDH 764(H) <226 U/L [facility] COMMENT [facility] Comment: Specimen is slightly hemolyzed. The following tests may be affected: K+, AST, LDH, DBili, and UIBC. 10/19/2021 10:0 0 AM EST 10/19/2021 10:00 AM EST Jl Burgess MD LABORATORY Final Result Performing Organization Address [facility] Co de Phone Number [facility] [address] [place] [address] * LACTIC ACID (LACTATE) (10/19/2021 10:00 AM EST) Lactate 1.5 0.5 - 2.0 mmol/L [facility] 10/19/2021 10:0 0 AM EST 10/19/2021 10:00 AM EST Jl Burgess MD LABORATORY Final Result Performing Organization Address [facility] Phone Number [facility] [address] [place] [address] * (ABNORMAL) TIBC (10/19/2021 10:00 AM EST) IRON 23(L) 40 - 155 ug/dL [facility] UNSAT IRON BINDING CAPACITY(UIBC) 135(L) 150 - 375 ug/dL [facility] TIBC (IRON BINDING CAPACITY) 158(L) 228 - 428 ug/dL [facility] IRON SATURATION % 15 15 - 55 % [facility] COMMENT [facility] Comment: Specimen is slightly hemolyzed. The following tests may be affected: K+, AST, LDH, DBili, and UIBC. 10/19/2021 10:0 0 AM EST 10/19/2021 10:00 AM EST Jl Burgess MD LABORATORY Final Result Performing Organization Address [facility] Co de Phone Number [facility] [address] [place] [address] * CPK (10/19/2021 10:00 AM EST) Only the most recent of3 resultswithin the time period is included. CK (CREATINE KINASE) 27 24 - 204 U/L [facility] 10/19/2021 10:0 0 AM EST 10/19/2021 10:00 AM EST Jl Burgess MD LABORATORY Final Result Performing Organization Address [facility] Co de Phone Number [facility] [address] [place] [address] * (ABNORMAL) HEPATIC FUNCTION PANEL (10/19/2021 10:00 AM EST) Total Protein 6.3 6.0 - 8.5 g/dL [facility] ALBUMIN 3.0(L) 3.6 - 4.8 g/dL [facility] BILIRUBIN TOTAL 1.8(H) 0.1 - 1.2 mg/dL [facility] BILIRUBIN DIRECT 0.5(H) 0.0 - 0.4 mg/dL [facility] ALKALINE PHOSPHATASE 140 25 - 160 U/L [facility] ALT (SGPT) 22 0 - 44 U/L [facility] AST (SGOT) 24 0 - 55 U/L [facility] COMMENT [facility] Comment: Specimen is slightly hemolyzed. The following tests may be affected: K+, AST, LDH, DBili, and UIBC. 10/19/2021 10:0 0 AM EST 10/19/2021 10:00 AM EST Jl Burgess MD LABORATORY Final Result Performing Organization Address [facility] Co de Phone Number [facility] [address] [place] [address] * (ABNORMAL) BNP-PRO B-TYPE NATRIURETIC PEPTIDE (10/19/2021 5:57 AM EST) Pro B-Type Natriuretic Peptide 481(H) Less than 125 pg/mL [facility] 10/19/2021 5:57 AM EST 10/19/2021 5:57 AM EST Jl Burgess MD LABORATORY Final Result Performing Organization Address City/[facility]/ZIP Co de Phone Number [facility] [address] [place] [address] * (ABNORMAL) RETICULOCYTE COUNT,AUTOMATED (10/19/2021 5:57 AM EST) Pathologist [facility] RETICULOCYTE % 8.6(H) 0.6 - 2.6 % [facility] RETICULOCYTES # 212.4(H) 35 - 101 billion/L [facility] 10/19/2021 5:57 AM EST 10/19/2021 5:57 AM EST Jl Burgess MD LABORATORY Final Result Performing Organization Address City/[facility]/ZIP Co de Phone Number [facility] [address] [place] [address] * (ABNORMAL) FERRITIN (10/19/2021 5:57 AM EST) Only the most recent of2 resultswithin the time period is included. Pathologist [facility] FERRITIN 1,056(H) 30 - 400 ng/mL [facility] 10/19/2021 5:57 AM EST 10/19/2021 5:57 AM EST Jl Burgess MD LABORATORY Final Result Performing Organization Address [facility] Co de Phone Number [facility] [address] [place] [address] * RPR (10/18/2021 1:50 PM EST) Pathologist [facility] RPR Non Reactive Non Reactive [facility] 10/18/2021 1:50 PM EST 10/18/2021 1:50 PM EST Jl Burgess MD LABORATORY Final Result Performing Organization Address City/[facility]/ZIP Co de Phone Number [facility] [address] [place] [address] * THYROID CASCADE (10/18/2021 11:30 AM EST) Pathologist [facility] TSH, THYROTROPIN 0.937 0.450 - 4.500 uU/mL [facility] 10/18/2021 11:3 0 AM EST 10/18/2021 11:30 AM EST Jl Burgess MD LABORATORY Final Result Performing Organization Address [facility] de Phone Number [facility] [address] [place] [address] * (ABNORMAL) PROTHROMBIN TIME (10/16/2021 3:51 AM EST) PT (PROTHROMBIN TIME) 12.1(H) 9.1 - 12.[address] [facility] INR 1.2(L) 2.0 - 3.[address] [facility] Comment: INR reference interval applies to patients on anticoagulant therapy. Suggested INR therapeutic range for oral anticoagulant therapy:(Stabilized anticoagulated patients) Routine Therapy: 2.0-3.0 Recurrent Myocardial Infarction or Mechanical Prosthetic Valves: 2.5-3.5 10/16/2021 3:51 AM EST 10/16/2021 3:51 AM EST Jl Burgess MD LABORATORY Final Result Performing Organization Address [facility] de Phone Number [facility] [address] [place] [address] * (ABNORMAL) TRIGLYCERIDES (10/02/2021 5:13 AM EST) TRIGLYCERIDES 154(H) 0 - 149 mg/dL [facility] 10/02/2021 5:13 AM EST 10/02/2021 5:13 AM EST Nic Lamb MD LABORATORY Final Result Performing Organization Address [facility] Co de Phone Number [facility] [address] [place] [address] * CALCITONIN (10/02/2021 5:13 AM EST) CALCITONIN 5.1 0.0 - 8.4 pg/mL [facility] Comment: Siemens Immulite 2000 Immunochemiluminometric assay (ICMA) Values obtained with different assay methods or kits cannot be used interchangeably. Results cannot be interpreted as absolute evidence of the presence or absence of malignant disease. 10/02/2021 5:13 AM EST 10/02/2021 5:13 AM EST us Nic Lamb MD LABORATORY Final Result [facility] [address] [place] [address] * CT PE PROTOCOL CHEST W/ CONTRAST (09/27/2021 2:18 PM EST) RADIOLOGY REPORT [facility] Department of Radiology [address] [place], [address] Name: VINICIUS MCCULLOUGH : 60 Date of Service: 09/27/211456 Acct Number: [id number] Order Number: [id number] Location: [facility] Report Number: [id number] Service: ADM IN/MED Requesting Physician: Tahir Hooks MD Category: COMPUTED TOMOGRAPHY [facility] Exam: CT PE PROTOCOL CHEST W CON Signs/Symptoms: Shortness of breath Report Status: Signed CT CHEST WITH INTRAVENOUS CONTRAST, PULMONARY ARTERY EMBOLISM DETECTION PROTOCOL TECHNIQUE: CT scan of the chest was performed WITH intravenous contrast utilizing the pulmonary artery embolism detection protocol. 100 cc of Isovue 370 was rapidly administered. Coronal and sagittal reformatted images were generated, together with axial maximum intensity projection images of the lungs. Adaptive Iterative Dose Reduction (AIDR) and NEMA XR 25 DOSE Check software, were used to reduce radiation dose to the patient. INDICATION: Shortness of breath COMPARISON: Chest radiograph September 26, 2021. FINDINGS: Pulmonary Arteries: This is a high quality study for evaluation of pulmonary embolism with good contrast bolus. There are filling defects involving segmental and subsegmental arteries in the right upper, right middle and right lower lung vasculature. Additionally, small subsegmental filling defects involving the anterior lower left lung. Pulmonary artery trunk size within normal limits. Lungs and Large Airways: Central airways are patent. There is multifocal groundglass and solid opacities involving the periphery of the bilateral lungs, involving all lung burr, with minimal sparing of the apices. Pleura: Small bilateral pleural effusions. No pneumothorax. Mediastinum and Nasrin: There are a multiple enlarged lymph nodes in the mediastinum and bilateral nasrin, including subcarinal and paratracheal regions, measuring up to 14 mm short axis. These are likely reactive to the multifocal pneumonia. Esophagus is within normal limits for CT appearance. Homogeneous thyroid, without discrete nodule. Heart and Vessels: The heart is normal in size. No pericardial effusion. There is a three vessel aortic arch. Nonaneurysmal thoracic aorta. Upper Abdomen: Unremarkable. Bones and Soft Tissues: No acute soft tissue abnormality. No acute osseous abnormality. Mild multilevel degenerative changes of thoracic spine. IMPRESSION: 1. Multiple segmental and subsegmental pulmonary emboli in the right upper, middle and lower lobes. Additional, small subsegmental pulmonary embolus in the left lower lobe. No evidence of right heart strain. 2. Severe multifocal pneumonia involving all lobes with the appearance suggesting COVID 19 pneumonia. Findings discussed by Supervisor Of Communications Monroe Shin MD with Jason Thorpe MD, 09/27/2021 3:18 PM. Date/Time of Dictation: 09/27/21 1544 Supervisor Of Communications (if applicable): Monroe Shin MD Approved By Attending Radiologist: Randee Ly MD 09/27/21 1544 [facility] Department of Radiology [address] [place] [address], [id number] [facility] Anatomical Region Laterality Modality Other 09/27/2021 2:18 PM EST Narrative 09/27/2021 3:44 PM EST Reason for Study/History: Department of Radiology TEST(S) PROCESSED BY [facility] XRAY us Unknown Provider [facility] Final Resul t * (ABNORMAL) CRP-INFLAMMATION (09/26/2021 5:10 AM EST) C REACTIVE PROTEIN (CRP) 37.54(H) 0.0 - 4.9 mg/L [facility] Comment: Significantly decreased CRP values may be obtained from samples taken from patients who have been treated with carboxypenicillins. Specimen reassayed by dilution. 09/26/2021 5:10 AM EST 09/26/2021 5:10 AM EST us Nic Lamb MD LABORATORY Final Result Performing Organization Address [facility] de Phone Number [facility] [address] [place] [address] * (ABNORMAL) SED RATE (ESR) (09/26/2021 5:10 AM EST) ESR (ERYTHROCYTE SEDIMENTATION RATE) 28(H) 2 - 10 mm/hr [facility] 09/26/2021 5:10 AM EST 09/26/2021 5:10 AM EST Nic Lamb MD LABORATORY Final Result Performing Organization Address [facility] Number [facility] [address] [place] [address] * (ABNORMAL) INTERLEUKIN 6 (09/26/2021 5:10 AM EST) INTERLEUKIN-6 6,994.0(H ) 0.0 - 13.0 pg/mL [facility] Comment: Results confirmed on dilution. Based on the available clinical data, PCR-confirmed COVID-19 patients with IL-6 concentrations >35.0 pg/mL at presentation are at risk for mechanical ventilation during their hospitalization. IL-6 values should be used in conjunction with clinical findings and the results of other laboratory findings. IL-6 values alone are not indicative of the need for endotracheal intubation or mechanical ventilation. 09/26/2021 5:10 AM EST 09/26/2021 5:10 AM EST us Nic aLmb MD LABORATORY Final Result Performing Organization Address [facility] de Phone Number [facility] [address] [place] [address] * DERMATOPATHOLOGY REPORT (09/08/2020 3:36 PM EST) Only the most recent of2 resultswithin the time period is included. COLLECTION DATE 09/08/2020 3:36 PM [facility] SPECIMEN SOURCE . A . SKIN SHAVE RIGHT LATERAL LOWER LEG [facility] DIAGNOSIS . A . 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 [facility] COMMENT . A . SEE NOTE [employer] Comment: Multiple tissue levels were examined. 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 The morphologic differential diagnosis includes the apex of an arthropod bite reaction or unusual response to an infection. PAS and Hollie stains are negative for fungal and mycobacterial elements, respectively. Iron stain highlights dermal hemosiderin. Immunohistochemical stains are performed: CD68 highlights dermal macrophages, CD31 labels small caliber vessels in the dermis and nonspecific high background staining. No vascular lesion or significant atypia is seen in examined sections. Clinical correlation is recommended. This case was reviewed at the Dermatopathology Division Consensus Conference. Clinical Information Lymphangioma vs. Basal ca. [facility] Pathologist Sumanth Vargas D.O., Board Certified in Anatomic Pathology and Dermatopathology (electronic signature) Consulting Pathologist [facility] Pathology [address] [place] [address] [employer] GROSS DESCRIPTION . A . SEE NOTE [employer] Comment: The container is labeled with patient's name and source R lower lateral leg . Specimen is received in formalin and consists of a bañuelos piece of skin measuring 0.7 x 0.2 x 0.1 cm. Specimen is inked black at the surgical resection margin, left intact and submitted entirely in cassette A1. ALS 09/10/2020 Note: Due to fixation formalin shrinkage, the measurements in the gross description may be less than those taken at the time of surgery. Gross exam(s) performed at: [facility] [address] [place] [id number] [employer]: LYUBOV KOROMA MD 09/08/2020 3:36 PM EST 09/09/2020 2:37 AM EST us Iván Guajardo MD PATHOLOGY-INTERFACED Final Result [employer] [address] [place] [address] * (ABNORMAL) BILIRUBIN, TOTAL (02/09/2019 12:45 PM EDT) BILIRUBIN TOTAL 2.4(H) 0.1 - 1.2 mg/dL [facility] COMMENT [facility] Comment: Specimen is slightly hemolyzed. The following tests may be affected: AST, LDH, DBili, and UIBC. 02/09/2019 12:4 5 PM EDT 02/09/2019 12:45 PM EDT us Stalin Walden MD LABORATORY Final Result Performing Organization Address [facility] de Phone Number [facility] [address] [place] [address] * (ABNORMAL) URINALYSIS DIP W/ REFLEX TO [...] PM EST 12/25/2018 1:34 PM EST Narrative [facility] - 12/25/2018 2:20 PM EST Patient's primary care provider is: N/A Testing performed at: [facility], [address] [place] [address], [id number], [employer] Manager [employer]: Bairon Kevin MD us Prince Owens MD LABORATORY Final Resu lt Performing Organization Address [facility] Co de Phone Number [facility] [address] [place] [address] DIRECTOR Bairon Kevin MD * CULTURE, URINE, ROUTINE (12/25/2018 1:34 PM EST) Bacteria culture (Urine) No Growth No Growth [facility] 12/25/2018 1:3 4 PM EST 12/25/2018 1:34 PM EST Narrative [facility] - 12/27/2018 8:52 AM EST Patient's primary care provider is: N/A Testing performed at: [facility], [address] [place] [address], [id number], Product Manager [employer]: Bairon Kevin MD Prince Owens MD LABORATORY Final Resu lt Performing Organization Address [facility] de Phone Number [address] [address] DIRECTOR Bairon Kevin MD * (ABNORMAL) URINALYSIS, [...] PM EST 12/25/2018 1:34 PM EST Narrative [facility] - 12/25/2018 2:24 PM EST Patient's primary care provider is: N/A Testing performed at: [facility], [address] [place] [address], [id number], Product Manager [employer]: Bairon Kevin MD us Prince Owens MD LABORATORY Final Resu lt Performing Organization Address [facility] de Phone Number [address] [address] DIRECTOR Bairon Kevin MD * DIFFERENTIAL, MANUAL ONLY (11/27/2018 7:50 AM [...] LABORATORY Final Resu lt [facility] [address] [place] [address] * US ABDOMEN COMPLETE (DX: ABDOMINAL PAIN R10.9/ 789.00) (WITHIN 1 WK) FC (06/18/2018 4:40 PM EDT) Anatomical Region Laterality Modality Abdomen Ultrasound 06/21/2018 5:26 PM EDT Narrative 06/21/2018 5:26 PM EDT US abdomen complete Comparison: None Findings: The visualized pancreas is normal The aorta and inferior vena cava are normal caliber. Hepatosplenomegaly. Diffuse increased liver echogenicity, no mass on submitted images. Right lobe length is 16.3 cm. There is no intrahepatic bile duct dilatation. The common duct is 0.1 cm in diameter. Extensive cholelithiasis, gallbladder is nearly completely filled with stones. There is no sonographic Modi sign. Gallbladder wall is upper normal at 0.3 cm thickness. No pericholecystic fluid. The main portal vein is antegrade The right kidney is 10.3 cm in length. The left kidney is 12.1 cm in length. The spleen is enlarged, 15.5 cm in length. No ascites IMPRESSION: 1. Hepatosplenomegaly and diffuse increased liver echogenicity, which can be seen with diffuse infiltrative process or hepato-steatosis. No mass on submitted images. Correlate with lab values. 2. Extensive cholelithiasis, gallbladder is nearly completely filled with stones. Gallbladder wall is upper normal at 0.3 cm thickness. No other findings to suggest acute cholecystitis by sonographic criteria. Procedure Note Hayley Sanchez MD - 06/21/2018 US abdomen complete Comparison: None Findings: The visualized pancreas is normal The aorta and inferior vena cava are normal caliber. Hepatosplenomegaly. Diffuse increased liver echogenicity, no mass onsubmitted images. Right lobe length is 16.3 cm. There is no intrahepatic bile duct dilatation. The common duct is 0.1 cm in diameter. Extensive cholelithiasis, gallbladder is nearly completely filled withstones. There is no sonographic Modi sign. Gallbladder wall is upper normal at0.3 cm thickness. No pericholecystic fluid. The main portal vein is antegrade The right kidney is 10.3 cm in length. The left kidney is 12.1 cm in length. The spleen is enlarged, 15.5 cm in length. No ascites IMPRESSION: 1. Hepatosplenomegaly and diffuse increased liver echogenicity, which canbe seen with diffuse infiltrative process or hepato-steatosis. No mass on submitted images. Correlate with lab values. 2. Extensive cholelithiasis, gallbladder is nearly completely filled with stones. Gallbladder wall is upper normal at 0.3 cm thickness. No other findings to suggest acute cholecystitis by sonographic criteria. Prince Owens MD [facility] ORDERABLES Final Re sult Visit Diagnoses Diagnosis Start Date Health examination of defined subpopulation 12/05/1992 Health examination of defined subpopulation 01/09/1993 Health examination of defined subpopulation 03/06/1993 Acquired hemolytic anemia (HCC) Acquired hemolytic anemia, unspecified 02/05/2018 Acquired hemolytic anemia (HCC) Acquired hemolytic anemia, unspecified 02/07/2018 Acquired hemolytic anemia (HCC) Acquired hemolytic anemia, unspecified 04/13/2018 Acquired hemolytic anemia (HCC) Acquired hemolytic anemia, unspecified 05/05/2018 Acquired hemolytic anemia (HCC) Acquired hemolytic anemia, unspecified 05/12/2018 Acquired hemolytic anemia (HCC) Acquired hemolytic anemia, unspecified 05/12/2018 Acquired hemolytic anemia (HCC) Acquired hemolytic anemia, unspecified 06/10/2018 Acquired hemolytic anemia (HCC) Acquired hemolytic anemia, unspecified 06/18/2018 Acquired hemolytic anemia (HCC) Acquired hemolytic anemia, unspecified 07/07/2018 Acquired hemolytic anemia (HCC) Acquired hemolytic anemia, unspecified 08/03/2018 Acquired hemolytic anemia (HCC) Acquired hemolytic anemia, unspecified 08/04/2018 Acquired hemolytic anemia (HCC) Acquired hemolytic anemia, unspecified 08/31/2018 Acquired hemolytic anemia (HCC) Acquired hemolytic anemia, unspecified 10/05/2018 Acquired hemolytic anemia (HCC) Acquired hemolytic anemia, unspecified 11/09/2018 Acquired hemolytic anemia (HCC) Acquired hemolytic anemia, unspecified 11/23/2018 Acquired hemolytic anemia (HCC) Acquired hemolytic anemia, unspecified 11/24/2018 Acquired hemolytic anemia (HCC) Acquired hemolytic anemia, unspecified 11/24/2018 Primary osteoarthritis of both feet 11/24/2018 Acquired equinus deformity of both feet 11/24/2018 Acquired hallux rigidus, unspecified laterality 11/24/2018 Acquired hemolytic anemia (HCC) Acquired hemolytic anemia, unspecified 11/25/2018 Acquired hemolytic anemia (HCC) Acquired hemolytic anemia, unspecified 11/27/2018 Acquired hemolytic anemia (HCC) Acquired hemolytic anemia, unspecified 12/12/2018 Malignant neoplasm of urinary bladder, unspecified site (HCC) 12/24/2018 Urinary frequency 12/24/2018 Acquired hemolytic anemia (HCC) Acquired hemolytic anemia, unspecified 12/24/2018 Urinary frequency 12/25/2018 Acquired hemolytic anemia (HCC) Acquired hemolytic anemia, unspecified 01/18/2019 Acquired hemolytic anemia (HCC) Acquired hemolytic anemia, unspecified 02/06/2019 Acquired hemolytic anemia (HCC) Acquired hemolytic anemia, unspecified 02/08/2019 Acquired hemolytic anemia (HCC) Acquired hemolytic anemia, unspecified 02/09/2019 Acquired hemolytic anemia (HCC) Acquired hemolytic anemia, unspecified 02/10/2019 Acquired hemolytic anemia (HCC) Acquired hemolytic anemia, unspecified 02/11/2019 Acquired hemolytic anemia (HCC) Acquired hemolytic anemia, unspecified 02/11/2019 Acquired hemolytic anemia (HCC) Acquired hemolytic anemia, unspecified 02/17/2019 Acquired hemolytic anemia (HCC) Acquired hemolytic anemia, unspecified 02/24/2019 Acquired hemolytic anemia (HCC) Acquired hemolytic anemia, unspecified 04/09/2019 Acquired hemolytic anemia (HCC) Acquired hemolytic anemia, unspecified 04/13/2019 Acquired hemolytic anemia (HCC) Acquired hemolytic anemia, unspecified 06/29/2019 Acquired hemolytic anemia (HCC) Acquired hemolytic anemia, unspecified 07/30/2019 Acquired hemolytic anemia (HCC) Acquired hemolytic anemia, unspecified 08/29/2019 Acquired hemolytic anemia (HCC) Acquired hemolytic anemia, unspecified 08/31/2019 SOB (shortness of breath) Shortness of breath 08/31/2019 Acquired hemolytic anemia (HCC) Acquired hemolytic anemia, unspecified 10/02/2019 Acquired hemolytic anemia (HCC) Acquired hemolytic anemia, unspecified 10/29/2019 Acquired hemolytic anemia (HCC) Acquired hemolytic anemia, unspecified 11/29/2019 Acquired hemolytic anemia (HCC) Acquired hemolytic anemia, unspecified 04/17/2020 Acquired hemolytic anemia (HCC) Acquired hemolytic anemia, unspecified 04/18/2020 SOB (shortness of breath) Shortness of breath 04/18/2020 Photodermatitis Acute dermatitis due to solar radiation 05/23/2020 Neoplasm of uncertain behavior of skin 05/23/2020 Seborrheic keratosis Other seborrheic keratosis 05/23/2020 Neoplasm of uncertain behavior of skin 06/07/2020 Basal cell carcinoma of trunk Basal cell carcinoma of skin of trunk, except scrotum 06/23/2020 Acquired hemolytic anemia (HCC) Acquired hemolytic anemia, unspecified 08/18/2020 Acquired hemolytic anemia (HCC) Acquired hemolytic anemia, unspecified 08/22/2020 SOB (shortness of breath) Shortness of breath 08/22/2020 Neoplasm of uncertain behavior of skin 09/08/2020 Acquired hemolytic anemia (HCC) Acquired hemolytic anemia, unspecified 10/17/2020 Acquired hemolytic anemia (HCC) Acquired hemolytic anemia, unspecified 12/04/2020 Acquired hemolytic anemia (HCC) Acquired hemolytic anemia, unspecified 01/19/2021 Acquired hemolytic anemia (HCC) Acquired hemolytic anemia, unspecified 01/23/2021 SOB (shortness of breath) Shortness of breath 01/23/2021 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[facility]) 01/23/2021 Acquired hemolytic anemia (HCC) Acquired hemolytic anemia, unspecified 07/27/2021 Acquired hemolytic anemia (HCC) Acquired hemolytic anemia, unspecified 07/30/2021 Acquired hemolytic anemia (HCC) Acquired hemolytic anemia, unspecified 07/31/2021 SOB (shortness of breath) Shortness of breath 07/31/2021 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[facility]) 07/31/2021 Acquired hemolytic anemia (HCC) Acquired hemolytic anemia, unspecified 08/02/2021 Acquired hemolytic anemia (HCC) Acquired hemolytic anemia, unspecified 08/06/2021 Acquired hemolytic anemia (HCC) Acquired hemolytic anemia, unspecified 08/09/2021 Acquired hemolytic anemia (HCC) Acquired hemolytic anemia, unspecified 08/16/2021 Seborrheic keratosis Other seborrheic keratosis 08/22/2021 Epidermal cyst Sebaceous cyst 08/22/2021 Personal history of skin cancer Personal history of other malignant neoplasm of skin 08/22/2021 Skin tags, multiple acquired 08/22/2021 Acquired hemolytic anemia (HCC) Acquired hemolytic anemia, unspecified 09/15/2021 COVID-19 virus infection 09/22/2021 Hypoxia Hypoxemia 09/22/2021 Acquired hemolytic anemia (HCC) Acquired hemolytic anemia, unspecified 09/22/2021 Pneumonia of both lungs due to infectious organism, unspecified part of lung 09/22/2021 Pneumonia due to COVID-19 virus 09/23/2021 Acute hypoxemic respiratory failure (HCC) 09/23/2021 Altered mental status, unspecified altered mental status type 09/23/2021 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 09/23/2021 Malignant neoplasm of urinary bladder, unspecified site (HCC) 09/23/2021 Pneumonia due to COVID-19 virus 09/24/2021 Acute hypoxemic respiratory failure (HCC) 09/24/2021 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 09/24/2021 Acquired hemolytic anemia (HCC) Acquired hemolytic anemia, unspecified 09/24/2021 Acute hypoxemic respiratory failure (HCC) 09/27/2021 Pneumonia due to COVID-19 virus 09/27/2021 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 09/27/2021 Pulmonary embolism, unspecified chronicity, unspecified pulmonary embolism type, unspecified whether acute cor pulmonale present (HCC) 09/27/2021 Acquired hemolytic anemia (HCC) Acquired hemolytic anemia, unspecified 09/27/2021 COVID 09/28/2021 COVID-19 virus infection 10/06/2021 Pneumonia of both lungs due to infectious organism, unspecified part of lung 10/06/2021 Pulmonary embolism associated with COVID-19 ([facility]) 10/06/2021 Hypoxia Hypoxemia 10/06/2021 Acute respiratory failure with hypoxia ([facility]) Acute respiratory failure 10/08/2021 Acute respiratory failure with hypoxia ([facility]) Acute respiratory failure 10/09/2021 Acute respiratory disease due to COVID-19 virus 10/10/2021 PE (pulmonary thromboembolism) ([facility]) Chronic pulmonary embolism 10/10/2021 Type 2 diabetes mellitus with hyperglycemia, unspecified whether termite exterminator insulin use ([facility]) 10/10/2021 Acute respiratory disease due to COVID-19 virus 10/18/2021 Pneumonia due to COVID-19 virus 10/18/2021 PE (pulmonary thromboembolism) ([facility]) Chronic pulmonary embolism 10/18/2021 Hospital-acquired pneumonia Pneumonia, organism unspecified 10/18/2021 Acute respiratory disease due to COVID-19 virus 10/20/2021 Pneumonia due to COVID-19 virus 10/20/2021 PE (pulmonary thromboembolism) ([facility]) Chronic pulmonary embolism 10/20/2021 Hospital-acquired pneumonia Pneumonia, organism unspecified 10/20/2021 Acute respiratory disease due to COVID-19 virus 10/21/2021 Pneumonia due to COVID-19 virus 10/21/2021 Hospital-acquired pneumonia Pneumonia, organism unspecified 10/21/2021 PE (pulmonary thromboembolism) ([facility]) Chronic pulmonary embolism 10/22/2021 Pneumonia due to COVID-19 virus 10/22/2021 Pneumonia of left lung due to methicillin susceptible Staphylococcus aureus (MSSA), unspecified part of lung ([facility]) 10/22/2021 Acute respiratory failure due to COVID-19 ([facility]) 10/22/2021 Acute respiratory failure due to COVID-19 ([facility]) 10/31/2021 COVID-19 virus infection 11/05/2021 Pneumonia due to methicillin susceptible Staphylococcus aureus (MSSA), unspecified laterality, unspecified part of lung ([facility]) 11/05/2021 Pulmonary embolism, bilateral (HCC) Other pulmonary embolism and infarction 11/05/2021 Hypoxia Hypoxemia 11/05/2021 Acute respiratory failure due to COVID-19 (HCC) 11/12/2021 Acquired hemolytic anemia (HCC) Acquired hemolytic anemia, unspecified 01/25/2022 Acquired hemolytic anemia (HCC) Acquired hemolytic anemia, unspecified 01/30/2022 SOB (shortness of breath) Shortness of breath 01/30/2022 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) 01/30/2022 Acquired hemolytic anemia (HCC) Acquired hemolytic anemia, unspecified 04/02/2022 Acquired hemolytic anemia (HCC) Acquired hemolytic anemia, unspecified 04/02/2022 Acquired hemolytic anemia (HCC) Acquired hemolytic anemia, unspecified 08/19/2022 Acquired hemolytic anemia (HCC) Acquired hemolytic anemia, unspecified 08/21/2022 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[facility]) 08/21/2022 Seborrheic keratosis Other seborrheic keratosis 08/21/2022 Personal history of skin cancer Personal history of other malignant neoplasm of skin 08/21/2022 Malignant neoplasm of urinary bladder, unspecified site (HCC) 09/10/2022 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[facility]) 09/12/2022 Malignant neoplasm of urinary bladder, unspecified site (HCC) 09/12/2022 Acquired hemolytic anemia (HCC) Acquired hemolytic anemia, unspecified 10/03/2022 Acquired hemolytic anemia (HCC) Acquired hemolytic anemia, unspecified 11/08/2022 Acquired hemolytic anemia (HCC) Acquired hemolytic anemia, unspecified 11/26/2022 Acquired hemolytic anemia (HCC) Acquired hemolytic anemia, unspecified 11/26/2022 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[facility]) 11/26/2022 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) 11/26/2022 Acquired hemolytic anemia (HCC) Acquired hemolytic anemia, unspecified 02/06/2023 Acquired hemolytic anemia (HCC) Acquired hemolytic anemia, unspecified 02/12/2023 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) 02/12/2023 Acquired hemolytic anemia (HCC) Acquired hemolytic anemia, unspecified 04/25/2023 Acquired hemolytic anemia (HCC) Acquired hemolytic anemia, unspecified 04/30/2023 Acquired hemolytic anemia (HCC) Acquired hemolytic anemia, unspecified 05/30/2023 Acquired hemolytic anemia (HCC) Acquired hemolytic anemia, unspecified 05/30/2023 Acquired hemolytic anemia (HCC) Acquired hemolytic anemia, unspecified 05/30/2023 Acquired hemolytic anemia (HCC) Acquired hemolytic anemia, unspecified 07/22/2023 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) 07/22/2023 Acquired hemolytic anemia (HCC) Acquired hemolytic anemia, unspecified 07/24/2023 Acquired hemolytic anemia (HCC) Acquired hemolytic anemia, unspecified 07/25/2023 Acquired hemolytic anemia (HCC) Acquired hemolytic anemia, unspecified 08/01/2023 Acquired hemolytic anemia (HCC) Acquired hemolytic anemia, unspecified 08/05/2023 Acquired hemolytic anemia (HCC) Acquired hemolytic anemia, unspecified 08/05/2023 Acquired hemolytic anemia (HCC) Acquired hemolytic anemia, unspecified 08/08/2023 Acquired hemolytic anemia (HCC) Acquired hemolytic anemia, unspecified 08/11/2023 Acquired hemolytic anemia (HCC) Acquired hemolytic anemia, unspecified 08/13/2023 Acquired hemolytic anemia (HCC) Acquired hemolytic anemia, unspecified 08/15/2023 Seborrheic keratosis Other seborrheic keratosis 08/21/2023 Nelson angioma Nevus, non-neoplastic 08/21/2023 Skin tags, multiple acquired 08/21/2023 Personal history of skin cancer Personal history of other malignant neoplasm of skin 08/21/2023 Malignant neoplasm of urinary bladder, unspecified site (HCC) 09/01/2023 Acquired hemolytic anemia (HCC) Acquired hemolytic anemia, unspecified 09/11/2023 Acquired hemolytic anemia (HCC) Acquired hemolytic anemia, unspecified 09/11/2023 Malignant neoplasm of urinary bladder, unspecified site (HCC) 09/15/2023 Acquired hemolytic anemia (HCC) Acquired hemolytic anemia, unspecified 10/14/2023 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) 10/14/2023 SOB (shortness of breath) Shortness of breath 10/14/2023 Malignant neoplasm of urinary bladder, unspecified site (HCC) 10/17/2023 Malignant neoplasm of urinary bladder, unspecified site (HCC) 11/06/2023 Malignant neoplasm of urinary bladder, unspecified site (HCC) 11/28/2023 Malignant neoplasm of urinary bladder, unspecified site (HCC) 12/26/2023 Acquired hemolytic anemia (HCC) Acquired hemolytic anemia, unspecified 12/29/2023 SOB (shortness of breath) Shortness of breath 12/29/2023 Malignant neoplasm of urinary bladder, unspecified site (HCC) 01/23/2024 Malignant neoplasm of urinary bladder, unspecified site (HCC) 01/24/2024 Malignant neoplasm of urinary bladder, unspecified site (HCC) 02/07/2024 Malignant neoplasm of urinary bladder, unspecified site (HCC) 02/23/2024 Acquired hemolytic anemia (HCC) Acquired hemolytic anemia, unspecified 02/24/2024 Malignant neoplasm of urinary bladder, unspecified site (HCC) 03/09/2024 Acquired hemolytic anemia (HCC) Acquired hemolytic anemia, unspecified 03/12/2024 SOB (shortness of breath) Shortness of breath 03/12/2024 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) 03/12/2024 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[facility]) 03/12/2024 Malignant neoplasm of urinary bladder, unspecified site (HCC) 03/27/2024 Malignant neoplasm of urinary bladder, unspecified site (HCC) 04/10/2024 Acquired hemolytic anemia (HCC) Acquired hemolytic anemia, unspecified 04/29/2024 Acquired hemolytic anemia (HCC) Acquired hemolytic anemia, unspecified 04/29/2024 Acquired hemolytic anemia (HCC) Acquired hemolytic anemia, unspecified 04/29/2024 Acquired hemolytic anemia (HCC) Acquired hemolytic anemia, unspecified 05/07/2024 SOB (shortness of breath) Shortness of breath 05/07/2024 Acquired hemolytic anemia (HCC) Acquired hemolytic anemia, unspecified 05/21/2024 Acquired hemolytic anemia (HCC) Acquired hemolytic anemia, unspecified 06/04/2024 Acquired hemolytic anemia (HCC) Acquired hemolytic anemia, unspecified 06/14/2024 Acquired hemolytic anemia (HCC) Acquired hemolytic anemia, unspecified 06/14/2024 Acquired hemolytic anemia (HCC) Acquired hemolytic anemia, unspecified 06/15/2024 Acquired hemolytic anemia (HCC) Acquired hemolytic anemia, unspecified 06/22/2024 Acquired hemolytic anemia (HCC) Acquired hemolytic anemia, unspecified 06/29/2024 Acquired hemolytic anemia (HCC) Acquired hemolytic anemia, unspecified 07/12/2024 Acquired hemolytic anemia (HCC) Acquired hemolytic anemia, unspecified 07/19/2024 Acquired hemolytic anemia (HCC) Acquired hemolytic anemia, unspecified 07/27/2024 Acquired hemolytic anemia (HCC) Acquired hemolytic anemia, unspecified 08/02/2024 Acquired hemolytic anemia (HCC) Acquired hemolytic anemia, unspecified 08/10/2024 Acquired hemolytic anemia (HCC) Acquired hemolytic anemia, unspecified 08/17/2024 Acquired hemolytic anemia (HCC) Acquired hemolytic anemia, unspecified 08/23/2024 Acquired hemolytic anemia (HCC) Acquired hemolytic anemia, unspecified 08/26/2024 Acquired hemolytic anemia (HCC) Acquired hemolytic anemia, unspecified 08/31/2024 Acquired hemolytic anemia (HCC) Acquired hemolytic anemia, unspecified 09/27/2024 Acquired hemolytic anemia (HCC) Acquired hemolytic anemia, unspecified 09/28/2024 SOB (shortness of breath) Shortness of breath 09/28/2024 Acquired hemolytic anemia (HCC) Acquired hemolytic anemia, unspecified 10/11/2024 Acquired hemolytic anemia (HCC) Acquired hemolytic anemia, unspecified 10/20/2024 Acquired hemolytic anemia (HCC) Acquired hemolytic anemia, unspecified 10/25/2024 Acquired hemolytic anemia (HCC) Acquired hemolytic anemia, unspecified 11/09/2024 Nelson angioma Nevus, non-neoplastic 11/18/2024 Seborrheic keratosis Other seborrheic keratosis 11/18/2024 Skin tags, multiple acquired 11/18/2024 Epidermal cyst Sebaceous cyst 11/18/2024 Melanocytic nevi of trunk Benign neoplasm of skin of trunk, except scrotum 11/18/2024 Personal history of skin cancer Personal history of other malignant neoplasm of skin 11/18/2024 Skin cancer screening Screening for malignant neoplasm of the skin 11/18/2024 Acquired hemolytic anemia (HCC) Acquired hemolytic anemia, unspecified 11/24/2024 Acquired hemolytic anemia (HCC) Acquired hemolytic anemia, unspecified 12/13/2024 Acquired hemolytic anemia (HCC) Acquired hemolytic anemia, unspecified 12/19/2024 Acquired hemolytic anemia Acquired hemolytic anemia, unspecified 12/31/2024 SOB (shortness of breath) Shortness of breath 12/31/2024 Acquired hemolytic anemia (HCC) Acquired hemolytic anemia, unspecified 01/03/2025 Acquired hemolytic anemia (HCC) Acquired hemolytic anemia, unspecified 01/17/2025 Acquired hemolytic anemia (HCC) Acquired hemolytic anemia, unspecified 01/17/2025 Acquired hemolytic anemia (HCC) Acquired hemolytic anemia, unspecified 02/07/2025 Acquired hemolytic anemia (HCC) Acquired hemolytic anemia, unspecified 02/07/2025 Acquired hemolytic anemia (HCC) Acquired hemolytic anemia, unspecified 02/15/2025 Acquired hemolytic anemia (HCC) Acquired hemolytic anemia, unspecified 02/28/2025 SOB (shortness of breath) Shortness of breath 03/28/2025 Other acquired hemolytic anemias (HCC) Hemoglobinuria due to hemolysis from external causes 03/28/2025 Viral URI with cough Acute upper respiratory infections of unspecified site 03/28/2025 Abnormal RBC Other abnormality of red blood cells 03/28/2025 SOB (shortness of breath) Shortness of breath 03/28/2025 Symptomatic anemia 03/28/2025 Upper respiratory tract infection, unspecified type 03/28/2025 Acquired hemolytic anemia (HCC) Acquired hemolytic anemia, unspecified 03/29/2025 Acquired hemolytic anemia (HCC) Acquired hemolytic anemia, unspecified 03/30/2025 Acquired hemolytic anemia (HCC) Acquired hemolytic anemia, unspecified 04/01/2025 Acquired hemolytic anemia (HCC) Acquired hemolytic anemia, unspecified 04/01/2025 Acquired hemolytic anemia (HCC) Acquired hemolytic anemia, unspecified 04/06/2025 Acquired hemolytic anemia (HCC) Acquired hemolytic anemia, unspecified 04/13/2025 Acquired hemolytic anemia (HCC) Acquired hemolytic anemia, unspecified 04/20/2025 Acquired hemolytic anemia (HCC) Acquired hemolytic anemia, unspecified 04/27/2025 Acquired hemolytic anemia (HCC) Acquired hemolytic anemia, unspecified 05/04/2025 Acquired hemolytic anemia (HCC) Acquired hemolytic anemia, unspecified 05/09/2025 Acquired hemolytic anemia (HCC) Acquired hemolytic anemia, unspecified 05/11/2025 Acquired hemolytic anemia (HCC) Acquired hemolytic anemia, unspecified 05/25/2025 Acquired hemolytic anemia (HCC) Acquired hemolytic anemia, unspecified 06/14/2025 Care Teams General Laborer Relationship Specialty Start Date End Date Manoj Agudelo I [address] [id number] PCP - General Family Medicine 02/05/18 Prince Owens MD [address] [place] [id number] Primary Hem Onc Provider Hematology/Oncology 04/18/25
== END 2025-07-08 14:47 | disposition home or self-care (01) ==
LOC: HO.HUSH 13:59
PROVIDERS: Visit Provider Urology
DX: C67.9 Malignant neoplasm of bladder, unspecified (principal); Z13.9 Encounter for screening, unspecified
CPT/HCPCS: 52000; 99214